=== PATIENT | female | born 1980 | race Caucasian/White ===

== ENCOUNTER → 2020-04-29 15:31 | Outpatient (BNVA) | payer MEDICARE, MEDICAID, SELFPAY | PROVIDERS: Family Provider Internal Medicine; PCP Internal Medicine; Visit Provider Internal Medicine | DX: E11.9 Type 2 diabetes mellitus without complications (principal); I10 Essential (primary) hypertension; Q65.89 Other specified congenital deformities of hip | CPT/HCPCS: 80053; 82607; 82746; 82747; 83036; 84443; 85025 ==

== ENCOUNTER 2020-07-17 08:26 | Inpatient (IN) | payer MEDICARE, MEDICAID, SELFPAY ==
[2020-07-17] VITALS (16 sets, daily range): BP systolic 121–197; BP diastolic 84–139; PULSE 77–126; RESP 16–20; TEMP 35.7–37.3; O2SAT 92–94; BMI 31.2
--- NOTE | 2020-07-17 08:47 | XR_ITS ---
WS: [id number] Portable AP upright chest, 07/17/2020 Clinical Data: weight loss Comparison: Portable chest, 11/21/2018 Findings: No nodules, masses or effusions are seen. The heart is normal. The pulmonary vascularity is not increased. No pneumonia or pneumothorax is seen. XR/XR chest 1V portable [id number] Impression: Negative chest.
--- NOTE | 2020-07-17 08:52 | ED_ITS ---
Documented by User: LYNN Herman 07/17/20 10:23 HPI - Abdominal Pain General: Chief Complaint: Abdominal Pain Stated Complaint: throwing up/weight loss/back pain Time Seen by Provider: 07/17/20 08:46 History of Present Illness: HPI narrative: Patient arrives with complaints of abdominal pain for at least 3 weeks. Cannot take her medication she is normally prescribed at home. Was in her ER yesterday coming by ambulance and was not able to stay in waiting room due to the pain and nausea and vomiting. Patient said she has been vomiting on and off for the last 3 weeks. Has a history of chronic pancreatitis from a bad drug reaction in past. MD elicited complaint: abdominal pain Pertinent past history: other (Chronic pancreatitis) Onset (ago): week(s) Pain Consistency: constant Location: Diffuse Severity: similar to previous episodes Quality: aching Radiation: RUQ and R flank Migration to: R flank Exacerbating factors: eating Relieving factors: nothing Associated Symptoms: Reports nausea and vomiting; Denies chills and fever(s) Review of Systems Const: Denies: fever(s), chills or body aches Eyes: Denies: change in vision or blurry vision ENMT: Denies: throat pain or nasal congestion Card: Denies: chest pain or dyspnea on exertion Resp: Denies: dyspnea, productive cough or non-productive cough GI: Reports: abdominal pain, nausea and vomiting : Reports: flank pain Musc: Denies: extremity pain Skin/Breast: Denies: rash Neuro: Denies: headache(s) Psych: Denies: anxiety or depression Benjy/Lymph: Denies: easy bruising PFS ED PFSH: Medical History (Updated 06/26/20 @ 16:01 by Yony Otero MD) Chronic pain of lower extremity, bilateral 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 Diabetes Essential (primary) hypertension Surgical History History of bilateral knee replacement Family History Grandmother Cancer Lung disease Stroke Mother Lung disease Other A-fib CHF (congestive heart failure) Social History Smoking and tobacco status: never smoked Alcohol intake: never Household members: spouse Housing: House Marital status: Current occupational status: disabled History of recent travel: No Physical Exam Const: COMMON NORMALS: no acute distress, average body habitus and patient oriented x3 HENMT: COMMON NORMALS: normocephalic HEAD & SCALP: normal to inspection and normocephalic FACE & SINUS: normal facial exam Eye: COMMON NORMALS: conjunctivae normal GENERAL EYE: appearance normal, both eyes and all related structures CONJUNCTIVA: Yes conjunctivae normal Neck/C-Spine: COMMON NORMALS: no JVD Chest: COMMONS NORMALS: normal inspection of the chest Resp: COMMON NORMALS: normal respiratory effort and clear to auscultation bilaterally AUSCULTATION: clear to auscultation bilaterally Cardio: COMMON NORMALS: no JVD, regular rate and regular rhythm RATE: regular rate RHYTHM: regular rhythm GI: COMMON NORMALS: Normal to inspection, nondistended, normoactive bowel sounds present PALPATION: Yes Tenderness to palpation present (GI) (And right flank) Details: RUQ Extremity: COMMON NORMALS: normal to inspection and full ROM Neuro: COMMON NORMALS: patient oriented x3 Course Vital Signs: Vital signs: Vital Signs Temperature 96.2 F L 07/17/20 08:44 Pulse Rate 116 H 07/17/20 10:28 Respiratory Rate 18 07/17/20 10:28 Blood Pressure 171/131 07/17/20 10:28 Pulse Oximetry 94 07/17/20 10:28 MDM - Abdominal Pain MDM Narrative: Medical decision making narrative: Report given to Dr. Felipe Lab Data: Labs: Lab Results 07/17/20 07/17/20 07/17/20 Range/Units 09:14 09:14 09:36 WBC 21.1 H (4.0-10.0) 10^3/ uL RBC 6.02 H (4.1-5.3) 10^6/u L Hgb 17.1 H (11.5-15.3) g/dL Hct 53.6 H (37.0-47.0) % MCV 89.0 (81-99) fL MCH 28.4 (28.0-34.0) pg MCHC 31.9 (30.0-36.0) g/dL RDW 14.4 (12.1-15.1) % Plt Count 590 H (130-400) 10^3/c mm MPV 10.3 (7.4-10.4) fL Neut % (Auto) 76.3 % Lymph % (Auto) 16.5 % [place] % (Auto) 6.0 % Eos % (Auto) 0.1 % Baso % (Auto) 0.4 % Neut # (Auto) 16.09 H (1.8-7.7) 10^3/u L Lymph # (Auto) 3.5 (0.8-4.8) 10^3/u L [place] # (Auto) 1.3 H (0.2-0.9) 10^3/u L Eos # (Auto) 0.0 (0.0-0.8) 10^3/u L Baso # (Auto) 0.1 (0.0-0.1) 10^3/u L Nucleated RBC % (a uto) 0 % Nucleated RBCs # 0.0 /100WBC Sodium 138 (136-145) mmol/L Potassium 3.9 (3.5-5.1) mmol/L Chloride 98 (98-107) mmol/L Carbon Dioxide 21 L (22-29) mmol/L Anion Gap 22.9 H (5-19) BUN 11 (6-20) mg/dL Creatinine 0.8 (0.5-0.9) mg/dL GFR Calculation 79.4 L (90-130) mL/min Glucose 181 H (65-115) mg/dL Calculated Osmolal ity 290 (285-295) mOsm/k g Calcium 10.7 H (8.5-10.5) mg/dL Total Bilirubin 0.6 (0.15-1.2) mg/dL AST 78 H (0-32) U/L ALT 21 (0-33) U/L Alkaline Phosphata se 111 H (35-105) IU/L Total Protein 8.7 (6.6-8.7) g/dL Albumin 4.0 (3.5-5.2) g/dL Globulin 4.7 H (1.3-4.6) g/dL Lipase 129 H (13-60) U/L HCG, Qual Negative (Negative) Discharge Plan Discharge Prescriptions: No Action (DME) One touch ultra blue test strips See Rx Instructions .Route .MEDSUPPLY Qty: 1 RF: 3 Briviact 25 mg tablet 25 mg PO DAILY RF: 0 glimepiride 4 mg tablet 4 mg PO BID Qty: 60 RF: 8 Invokana 300 mg tablet 300 mg PO QAM Qty: 90 RF: 3 morphine 30 mg tablet extended release 30 mg PO Q12H 30 Days Qty: 60 RF: 0 (DME) lancets [OneTouch Delica Lancets] 33 gauge misc See Rx Instructions .ROUTE .MEDSUPPLY Qty: 100 RF: 6 furosemide 20 mg tablet 40 mg PO BID Qty: 120 RF: 3 carvedilol 12.5 mg tablet 12.5 mg PO BID Qty: 180 RF: 0 tizanidine 4 mg tablet 8 mg PO TID PRN (Reason: muscle spasticity) 30 Days Qty: 180 RF: 3 ondansetron HCl 4 mg tablet 4 mg PO Q8H PRN (Reason: nausea and vomiting) Qty: 20 RF: 0 metformin 500 mg tablet 1,000 mg PO DAILY RF: 0 potassium chloride 10 mEq capsule, extended release 10 meq PO DAILY RF: 0 pantoprazole 40 mg tablet,delayed release (DR/EC) 40 mg PO DAILY RF: 0 zolpidem 5 mg tablet 5 mg PO BEDTIME RF: 0 hydrochlorothiazide 12.5 mg tablet 12.5 mg PO DAILY RF: 0 Coding Level of Care Code ED Lyric Writer for Chg Fwd Exam Comprehensive Documented by User: Janae Felipe MD 07/17/20 10:34 HPI - Abdominal Pain General: Chief Complaint: Abdominal Pain Stated Complaint: throwing up/weight loss/back pain Time Seen by Provider: 07/17/20 08:46 PFSH ED PFSH: Medical History (Updated 06/26/20 @ 16:01 by Yony Otero MD) Chronic pain of lower extremity, bilateral 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 She is here with pancreatitis. She has a history of chronic pancreatitis and is having an acute flare. She has had symptoms for about 3 weeks. Very severe for the last week. She has not able to eat and says she is lost 15 pounds in the past week. She has not a drinker. She does not have a gallbladder. On CT today she has a new 11 mm nodule in the tail of the pancreas. Differential includes necrosis versus cystic pancreatic mass. White count is 21,000. Her blood work reflects significant dehydration. She will be admitted to the hospitalist service for further management. Vital Signs: Vital signs: Vital Signs Temperature 96.2 F L 07/17/20 08:44 Pulse Rate 116 H 07/17/20 10:28 Respiratory Rate 18 07/17/20 10:28 Blood Pressure 171/131 07/17/20 10:28 Pulse Oximetry 94 07/17/20 10:28 MDM - Abdominal Pain Lab Data: Labs: Lab Results 07/17/20 07/17/20 07/17/20 Range/Units 09:14 09:14 09:36 WBC 21.1 H (4.0-10.0) 10^3/ uL RBC 6.02 H (4.1-5.3) 10^6/u L Hgb 17.1 H (11.5-15.3) g/dL Hct 53.6 H (37.0-47.0) % MCV 89.0 (81-99) fL MCH 28.4 (28.0-34.0) pg MCHC 31.9 (30.0-36.0) g/dL RDW 14.4 (12.1-15.1) % Plt Count 590 H (130-400) 10^3/c mm MPV 10.3 (7.4-10.4) fL Neut % (Auto) 76.3 % Lymph % (Auto) 16.5 % [place] % (Auto) 6.0 % Eos % (Auto) 0.1 % Baso % (Auto) 0.4 % Neut # (Auto) 16.09 H (1.8-7.7) 10^3/u L Lymph # (Auto) 3.5 (0.8-4.8) 10^3/u L [place] # (Auto) 1.3 H (0.2-0.9) 10^3/u L Eos # (Auto) 0.0 (0.0-0.8) 10^3/u L Baso # (Auto) 0.1 (0.0-0.1) 10^3/u L Nucleated RBC % (a uto) 0 % Nucleated RBCs # 0.0 /100WBC Sodium 138 (136-145) mmol/L Potassium 3.9 (3.5-5.1) mmol/L Chloride 98 (98-107) mmol/L Carbon Dioxide 21 L (22-29) mmol/L Anion Gap 22.9 H (5-19) BUN 11 (6-20) mg/dL Creatinine 0.8 (0.5-0.9) mg/dL GFR Calculation 79.4 L (90-130) mL/min Glucose 181 H (65-115) mg/dL Calculated Osmolal ity 290 (285-295) mOsm/k g Calcium 10.7 H (8.5-10.5) mg/dL Total Bilirubin 0.6 (0.15-1.2) mg/dL AST 78 H (0-32) U/L ALT 21 (0-33) U/L Alkaline Phosphata se 111 H (35-105) IU/L Total Protein 8.7 (6.6-8.7) g/dL Albumin 4.0 (3.5-5.2) g/dL Globulin 4.7 H (1.3-4.6) g/dL Lipase 129 H (13-60) U/L HCG, Qual Negative (Negative) Discharge Plan Discharge Prescriptions: No Action (DME) One touch ultra blue test strips See Rx Instructions .Route .MEDSUPPLY Qty: 1 RF: 3 Briviact 25 mg tablet 25 mg PO DAILY RF: 0 glimepiride 4 mg tablet 4 mg PO BID Qty: 60 RF: 8 Invokana 300 mg tablet 300 mg PO QAM Qty: 90 RF: 3 morphine 30 mg tablet extended release 30 mg PO Q12H 30 Days Qty: 60 RF: 0 (DME) lancets [OneTouch Delica Lancets] 33 gauge misc See Rx Instructions .ROUTE .MEDSUPPLY Qty: 100 RF: 6 furosemide 20 mg tablet 40 mg PO BID Qty: 120 RF: 3 carvedilol 12.5 mg tablet 12.5 mg PO BID Qty: 180 RF: 0 tizanidine 4 mg tablet 8 mg PO TID PRN (Reason: muscle spasticity) 30 Days Qty: 180 RF: 3 ondansetron HCl 4 mg tablet 4 mg PO Q8H PRN (Reason: nausea and vomiting) Qty: 20 RF: 0 metformin 500 mg tablet 1,000 mg PO DAILY RF: 0 potassium chloride 10 mEq capsule, extended release 10 meq PO DAILY RF: 0 pantoprazole 40 mg tablet,delayed release (DR/EC) 40 mg PO DAILY RF: 0 zolpidem 5 mg tablet 5 mg PO BEDTIME RF: 0 hydrochlorothiazide 12.5 mg tablet 12.5 mg PO DAILY RF: 0 Coding Level of Care Code ED Lyric Writer for Chg Fwd Exam Comprehensive
--- NOTE | 2020-07-17 08:54 | CT_ITS ---
WS: [id number] CT ABDOMEN AND PELVIS WITH CONTRAST HISTORY: Abdominal pain with weight loss and back pain. TECHNIQUE: Imaging performed of the abdomen and pelvis with IV contrast. Single phase imaging of the abdomen. Coronal and sagittal reformats are submitted. All CT scans at [facility] use at least one of these dose optimization techniques: automated exposure control; mA and/or kV adjustment per patient size (includes targeted exams where dose is matched to clinical indication); or iterativ e reconstruction. IV CONTRAST: Omnipaque 300; 95 mL IV. Oral contrast: No DLP: 790.43 mGy.cm COMPARISON: 06/22/2018 Lower thorax: Mild dependent changes at the lung bases. Mild enlargement of the LEFT heart chambers. Small hiatal hernia. Liver/biliary system: Moderate hepatic steatosis. Mild enlargement of the liver also. Gallbladder: Status post cholecystectomy. Pancreas: Pancreas is enlarged and edematous. There is mild perinephric stranding around the entire p ancreas. Pancreatic tail is a low-attenuation 11 mm nodule which was not seen on prior studies. No he morrhagic transformation. The entire pancreas does enhance. No adjacent pseudocyst. Spleen: Normal. Adrenal glands: Normal RIGHT adrenal gland. 1.9 cm low-attenuation mass associated with the LEFT adre nal gland thin septations. Very slightly increased in size over several prior years. Right kidney: Normal. Left kidney: Normal. Aorta: Mild atherosclerosis with a circumaortic LEFT renal vein. Lymphadenopathy: None. Free fluid: None. GI tract: Normal appendix. No pericolonic inflammation or obstruction. Abdominal wall: Unremarkable abdominal wall. No hernia. Pelvis: Normal size anteverted uterus. No free fluid or adenopathy. Negative urinary bladder. Bones: Unremarkable. CT/CT abdomen pelvis w con* [id number] IMPRESSION: 1. Mild to moderate acute pancreatitis without pseudocyst. 2. New low-attenuation 11 mm nodule in the pancreatic tail. Differential inclu veronica area of necrosis from the pancreatitis, pseudocyst or pancreatic cystic les ion. Recommend [address] follow-up after acute episode of pancreatitis resolve s. 3. Prior cholecystectomy. 4. Mild hepatic steatosis and hepatomegaly. 5. LEFT adrenal nodule has slightly increased in size since 2017 now measuring 19 mm. Indeterminate for adenoma. This also can be reevaluated on the follow-u p CT in 3 months.
[2020-07-17] MEDS: ondansetron 2 mg/ML SDV 2 mL 4 MG IVP ×2 (09:18→10:12)
[2020-07-17] MEDS: morphine 4 mg/mL SDV 1 mL IVP ×2 (09:21→10:13)
[2020-07-17] MEDS: sodium chloride 0.9% 1,000 ML 999 ML IV (09:25)
[2020-07-17 09:38] LABS: HCG, Serum Qual Negative (Negative)
[2020-07-17 09:43] LABS: Alanine Aminotransferase 21 U/L (0-33); Alkaline Phosphatase 111 IU/L (35-105); Blood Urea Nitrogen 11 mg/dL (6-20); Calcium 10.7 mg/dL (8.5-10.5); Carbon Dioxide 21 mmol/L (22-29); Chloride 98 mmol/L (98-107); Globulin 4.7 g/dL (1.3-4.6); Glomerular Filtration Rate 79.4 mL/min (90-130); Glucose 181 mg/dL (65-115); Lipase 129 U/L (13-60); Osmolality Calculated 290 mOsm/kg (285-295); Sodium 138 mmol/L (136-145); Total Bilirubin 0.6 mg/dL (0.15-1.2); Total Protein 8.7 g/dL (6.6-8.7)
[2020-07-17 09:43] LABS: Basophils # 0.1 10^3/uL (0.0-0.1); Basophils % 0.4 %; Eosinophils % 0.1 %; Hematocrit 53.6 % (37.0-47.0); Hemoglobin 17.1 g/dL (11.5-15.3); Lymphocytes # 3.5 10^3/uL (0.8-4.8); Lymphocytes % 16.5 %; Mean Corpuscular HGB Conc 31.9 g/dL (30.0-36.0); Mean Corpuscular Hemoglobin 28.4 pg (28.0-34.0); Mean Platelet Volume 10.3 fL (7.4-10.4); Monocytes # 1.3 10^3/uL (0.2-0.9); Neutrophils # 16.09 10^3/uL (1.8-7.7); Neutrophils % 76.3 %; Nucleated Red Blood Cells % 0 %; Platelet Count 590 10^3/cmm (130-400); Red Blood Count 6.02 10^6/uL (4.1-5.3); Red Cell Distribution Width 14.4 % (12.1-15.1); White Blood Count 21.1 10^3/uL (4.0-10.0)
--- NOTE | 2020-07-17 09:46 | PC.NURSE ---
pt to CT by stretcher with tech
[2020-07-17 09:50] LABS: Anion Gap 22.9 (5-19); Aspartate Amino Transferase 78 U/L (0-32); Potassium 3.9 mmol/L (3.5-5.1)
[2020-07-17] MEDS: iohexol 300 mg/mL 100 mL Btl IV (09:56)
[2020-07-17 10:55] LABS: Blood Urine 2+ (Negative); Glucose Urine UA 4+ (Normal); Ketones Urine 1+ (Negative); Protein Urine 3+ (Negative); Specific Gravity, Urine 1.005 (1.005-1.030); Urine Appearance SL Hazy (CLEAR); Urine Color Yellow (Yellow); pH Urine 6.5 (5-7)
[2020-07-17 10:56] LABS: Add Urine Microscopic? YES; Bilirubin Urine Neg (Negative); Leukocyte Esterase Urine Negative (Negative); Nitrate Urine Negative (Negative); Urobilinogen Urine Neg (Negative)
[2020-07-17 10:57] LABS: Add Urine Culture? No; Bacteria Urine 1+ /hpf; RBC Urine 0-4 /hpf (0-2); Squamous Epithelial Cell Urine 40-55 /hpf (0-5); WBC Urine 0-4 /hpf (0-5)
[2020-07-17] MEDS: HYDROmorphone 1 mg/mL INJ 1 mL 0.5 MG IVP (11:09)
[2020-07-17] MEDS: metoprolol tartrate 1 mg/1 mL SDV 5 mL 5 MG IV (11:09)
[2020-07-17 11:34] LABS: Triglycerides 186 mg/dL (0-150)
--- NOTE | 2020-07-17 11:55 | PM.HP ---
Providers/Chief Complaint Admitting Physician: Mary Perez DO Primary Care Provider: Yony Otero MD Chief Complaint: throwing up/weight loss/back pain History of Present Illness Eleanor Ragland is a 40 year old female with a past medical history of diabetes, epilepsy, hypertension, tachycardia and history of chronic pancreatitis that presented to the emergency department for nausea vomiting and abdominal pain. She reports that she has been having worsening nausea vomiting over the past 3 weeks. States that she has been worse over the past 3 days. Reports epigastric abdominal pain. Stated that she was on Zonegran in the past and this gave her at her first episode of pancreatitis in 2014, had 2 episodes in 2014 followed by an episode in 2017. Stated that she had a feeding tube placed at that time. Patient stated that she has not been able to take any of her medications for 3 days Patient was seen and evaluated in the emergency department noted to have concern for acute pancreatitis and admitted for further evaluation and treatment. Review of Systems Const: Denies: fever(s) or chills Eyes: Denies: change in vision ENMT: Denies: nasal congestion Card: Denies: chest pain, palpitations or edema Resp: Denies: dyspnea, productive cough or hemoptysis GI: Reports: abdominal pain, nausea, vomiting and constipation; Denies: diarrhea, hematochezia or melena : Denies: dysuria or hematuria Musc: Denies: extremity pain or muscle cramps Skin/Breast: Denies: rash or new lesions Neuro: Denies: headache(s) or dizziness Psych: Denies: anxiety or depression Endo: Denies: polyuria or hot flashes Benjy/Lymph: Denies: easy bruising or easy bleeding Medications/Allergies Home Medications Medication Instructions Recorded Confirmed Last Taken Type One touch ultra blue test strips #1 ea 01/16/20 07/17/20 Unknown Rx canagliflozin 300 mg tablet 300 mg PO QAM #90 tab 01/29/20 07/17/20 07/14/20 Rx lancets 33 gauge #100 each 03/05/20 07/17/20 Unknown Rx furosemide 20 mg tablet 40 mg PO BID #120 tab 03/11/20 07/17/20 Unknown Rx brivaracetam 25 mg tablet 25 mg PO DAILY 04/01/20 07/17/20 07/14/20 History glimepiride 4 mg tablet 4 mg PO BID #60 tab 04/01/20 07/17/20 07/14/20 Rx carvedilol 12.5 mg tablet 12.5 mg PO BID #180 tab 04/14/20 07/17/20 07/14/20 Rx morphine 30 mg tablet,extended 30 mg PO Q12H 30 Days #60 tab 06/26/20 07/17/20 07/14/20 Rx release tizanidine 4 mg tablet 8 mg PO TID PRN 30 Days #180 tab 06/30/20 07/17/20 Unknown Rx ondansetron HCl 4 mg tablet 4 mg PO Q8H PRN #20 tab 07/08/20 07/17/20 Unknown Rx hydrochlorothiazide 12.5 mg PO DAILY 07/17/20 07/17/20 07/14/20 History metformin 1,000 mg PO DAILY 07/17/20 07/17/20 07/14/20 History pantoprazole 40 mg PO DAILY 07/17/20 07/17/20 07/14/20 History potassium chloride 10 meq PO DAILY 07/17/20 07/17/20 07/14/20 History zolpidem 5 mg PO BEDTIME 07/17/20 07/17/20 07/16/20 History Allergies Allergy/AdvReac Type Severity Reaction Status Date / Time aspirin Allergy Unknown Verified 07/16/20 18:10 ketorolac [From Toradol] Allergy Unknown Verified 07/16/20 18:10 tramadol [From Ultram] Allergy Unknown Verified 07/16/20 18:10 PFSH Acute PFSH: Medical History (Updated 07/17/20 @ 11:59 by Mary Perez DO) Chronic pain of lower extremity, bilateral 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 Diabetes Epilepsy Essential (primary) hypertension Primary osteoarthritis Surgical History History of bilateral knee replacement History of cholecystectomy History of D&C 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 Family History Grandmother Cancer Lung disease Stroke Mother Lung disease Other A-fib CHF (congestive heart failure) Social History Smoking and tobacco status: never smoked Alcohol intake: never Household members: spouse Housing: House Marital status: Current occupational status: disabled History of recent travel: No Vitals/I&O/Wt Last Vital Signs Temp 96.2 F L 07/17/20 08:44 Pulse 120 H 07/17/20 11:20 Resp 17 07/17/20 11:09 BP 150/100 07/17/20 11:20 Pulse Ox 92 07/17/20 11:20 Weight last 48 hrs Weight 72.575 kg Physical Exam Const: COMMON NORMALS: patient oriented x3 and alert GENERAL APPEARANCE: cooperative ORIENTATION/CONSCIOUSNESS: Yes awake, Yes oriented to person, Yes oriented to place and Yes oriented to time HENMT: COMMON NORMALS: normocephalic and atraumatic HEAD & SCALP: normocephalic and atraumatic Eye: COMMON NORMALS: Equal, round and reactive pupils present PUPIL: Yes Equal, round and reactive pupils present Neck/C-Spine: COMMON NORMALS: supple GENERAL: Yes normal visual inspection Resp: COMMON NORMALS: normal respiratory effort and clear to auscultation bilaterally EFFORT & INSPECTION: Yes able to speak in complete sentences AUSCULTATION: clear to auscultation bilaterally, no rhonchi and no wheezes Cardio: COMMON NORMALS: regular rate, regular rhythm and No murmurs present (Cardio) RATE: regular rate RHYTHM: regular rhythm GI: COMMON NORMALS: Soft to palpation INSPECTION: No abdominal distension AUSCULTATION: Yes normoactive bowel sounds PALPATION: Yes Soft to palpation and Yes Tenderness to palpation present (GI) Details: RUQ Extremity: COMMON NORMALS: no calf tenderness NARRATIVE EXTREMITY EXAM: Chronic postsurgical changes to the right foot Neuro: COMMON NORMALS: patient oriented x3, CN's II-XII intact bilaterally, moves all extremities and no focal motor deficits SENSORIUM/ORIENTATION: Yes alert, Yes oriented to person, Yes oriented to place and Yes oriented to time SPEECH: speech normal Psych: COMMON NORMALS: mental status grossly normal and cooperative Skin: COMMON NORMALS: no rashes or lesions noted GENERAL SKIN EXAM: no rashes or lesions noted Data : 07/17/20 09:36 07/17/20 09:14 CT Abd/Pel: I personally reviewed and interpreted this imaging study as follows: Radiologist's impression: IMPRESSION: 1. Mild to moderate acute pancreatitis without pseudocyst. 2. New low-attenuation 11 mm nodule in the pancreatic tail. Differential includes area of necrosis from the pancreatitis, pseudocyst or pancreatic cystic lesion. Recommend [address] follow-up after acute episode of pancreatitis resolves. 3. Prior cholecystectomy. 4. Mild hepatic steatosis and hepatomegaly. 5. LEFT adrenal nodule has slightly increased in size since 2017 now measuring 19 mm. Indeterminate for adenoma. This also can be reevaluated on the follow-up CT in 3 months. CXR: I personally reviewed and interpreted this imaging study as follows: Radiologist's impression: Findings: No nodules, masses or effusions are seen. The heart is normal. The pulmonary vascularity is not increased. No pneumonia or pneumothorax is seen. XR/XR chest 1V portable [id number] Impression: Negative chest. A&P Assessment and plan (1) Pancreatitis, acute: With a history of chronic pancreatitis with episodes in [address] scan of the abdomen pelvis as noted above, discussed with patient concern for pancreatic lesion and need for close outpatient follow-up. N.p.o. bowel rest IV fluids If unable to take p.o. with no improvement of symptoms over the next [address] J-tube for tube feeds Hold home Invokana, this could be contributing to her pancreatitis We will check triglyceride level Patient denies alcohol use Status: Acute (2) Epilepsy: Seizure precautions On Brivaracetam 25mg daily, reports she has not taken her medication in 3 days Discussed with pharmacy and will convert to IV Status: Acute (3) Essential (primary) hypertension: As needed labetalol Status: Acute (4) Diabetes: Hemoglobin A1c Hold home Invokana as this can cause pancreatitis Placed on sliding scale insulin as needed Status: Acute (5) Chronic pain of lower extremity, bilateral: IV pain medication PRN Status: Acute Additional A&P Information Dehydration: Continue with IV fluids as above DVT ppx: Lovenox Diet: NPO COde status: Full code Attestations Medical Necessity Statement*: Patient requires hospitalization due to pancreatitis, expected stay greater than 2 midnights. Coding Level of Care Code Acute Preventive Medicine Officer for [facility] Fwd Diagnoses Pancreatitis, acute K85.90 Epilepsy G40.909 Essential (primary) hypertension I10 Diabetes E11.9 Chronic pain of lower extremity, bilateral M79.604; M79.605; G89.16
[2020-07-17 12:16] LABS: Estmated Average Glucose 126
[2020-07-17] MEDS: enoxaparin 40 mg/0.4 mL Syringe SUBCUT (12:43)
[2020-07-17] MEDS: promethazine 25 mg/mL SDV 1 mL 12.5 MG IM ×2 (12:43→17:52)
[2020-07-17] MEDS: lactated ringers 1,000 ML 100 ML IV ×2 (12:44→22:45)
[2020-07-17] MEDS: labetalol 5 mg/mL SDV 20mL 10 MG IVP (12:44)
--- NOTE | 2020-07-17 12:44 | PC.NURSE ---
Increased blood pressure 166/103, PRN labetalol given per doctors orders, see MAR for further details.
[2020-07-17] MEDS: morphine 4 mg/mL SDV 1 mL 2 MG IVP ×2 (12:47→16:36)
[2020-07-17 13:05] LABS: Thyroid Stimulating Hormone 0.21 uIU/mL (0.27-4.20)
--- NOTE | 2020-07-17 13:12 | PC.NURSE ---
Reassessed blood pressure 121/84
--- NOTE | 2020-07-17 13:15 | PC.NURSE ---
Addendum entered by Sonia Jacobson RN 07/17/20 16:04: discussed with Dr. Perez orders given were per Dr. Perez Original Note: Discussed patients seizure like activity with mouth movement although remains to answer questions appropriately and alert and oriented, new order received for a one time dose of ativan 0.5 NOW and use 1mg PRN for further seizures. See MAR for further details.
[2020-07-17] MEDS: LORazepam 2 mg/mL INJ 1 mL 0.5 MG IVP (13:22)
--- NOTE | 2020-07-17 16:04 | PC.NURSE ---
Patient remains nausea despite medications administered, requesting ice chips and increase in pain medication change to dilaudid, Dr. Perez made aware new orders received for swabs and NPO status only and remain same pain medication.
[2020-07-17 17:32] LABS: Glucose Point of Care 123 mg/dL (70-110)
[2020-07-17] MEDS: HYDROmorphone 1 mg/mL INJ 1 mL 2 MG IVP (17:52)
--- NOTE | 2020-07-17 17:58 | PC.NURSE ---
Dr. Perez notified of patient in tears stating pain 10/10 to abdomen, new orders received for ONE time dose of dilaudid 2mg IVP. See MAR for further details.
[2020-07-17 21:32] LABS: Glucose Point of Care 91 mg/dL (70-110)
[2020-07-18] VITALS (13 sets, daily range): BP systolic 134–161; BP diastolic 82–110; PULSE 107–128; RESP 16–24; TEMP 36.7–37.6; O2SAT 91–95
[2020-07-18] MEDS: morphine 4 mg/mL SDV 1 mL 2 MG IVP ×2 (00:51→17:19)
[2020-07-18] MEDS: ondansetron 2 mg/ML SDV 2 mL 4 MG IVP ×2 (00:52→17:20)
[2020-07-18] MEDS: promethazine 25 mg/mL SDV 1 mL 12.5 MG IM ×4 (01:41→21:47)
[2020-07-18] MEDS: LORazepam 2 mg/mL INJ 1 mL 1 MG IVP ×3 (03:15→17:28)
[2020-07-18 05:27] LABS: Basophils # 0.1 10^3/uL (0.0-0.1); Basophils % 0.7 %; Eosinophils % 0.1 %; Hematocrit 50.1 % (37.0-47.0); Hemoglobin 15.5 g/dL (11.5-15.3); Lymphocytes # 3.9 10^3/uL (0.8-4.8); Lymphocytes % 24.2 %; Mean Corpuscular HGB Conc 30.9 g/dL (30.0-36.0); Mean Corpuscular Hemoglobin 28.5 pg (28.0-34.0); Mean Corpuscular Volume 92.3 fL (81-99); Mean Platelet Volume 10.9 fL (7.4-10.4); Monocytes # 1.5 10^3/uL (0.2-0.9); Monocytes % 9.1 %; Neutrophils % 65.3 %; Nucleated Red Blood Cells % 0 %; Platelet Count 446 10^3/cmm (130-400); Red Blood Count 5.43 10^6/uL (4.1-5.3); Red Cell Distribution Width 14.7 % (12.1-15.1); White Blood Count 16.2 10^3/uL (4.0-10.0)
[2020-07-18 06:41] LABS: Alanine Aminotransferase 35 U/L (0-33); Albumin Level 3.4 g/dL (3.5-5.2); Alkaline Phosphatase 106 IU/L (35-105); Aspartate Amino Transferase 109 U/L (0-32); Blood Urea Nitrogen 9 mg/dL (6-20); Calcium 9.8 mg/dL (8.5-10.5); Carbon Dioxide 26 mmol/L (22-29); Chloride 103 mmol/L (98-107); Globulin 3.6 g/dL (1.3-4.6); Glomerular Filtration Rate 110.7 mL/min (90-130); Glucose 146 mg/dL (65-115); Osmolality Calculated 297 mOsm/kg (285-295); Sodium 143 mmol/L (136-145); Total Bilirubin 0.9 mg/dL (0.15-1.2)
[2020-07-18 06:51] LABS: Anion Gap 17.5 (5-19); Potassium 3.5 mmol/L (3.5-5.1)
--- NOTE | 2020-07-18 07:08 | PC.NURSE ---
Received report from Jairon Fairbanks RN. Assumed care of patient.
[2020-07-18 07:54] LABS: Lipase 114 U/L (13-60)
[2020-07-18] MEDS: HYDROmorphone 1 mg/mL INJ 1 mL 0.5 MG IVP ×3 (08:16→21:46)
[2020-07-18] MEDS: labetalol 5 mg/mL SDV 20mL 10 MG IVP (08:16)
[2020-07-18] MEDS: lactated ringers 1,000 ML 100 ML IV ×2 (08:23→17:22)
[2020-07-18 08:35] LABS: Glucose Point of Care 125 mg/dL (70-110)
--- NOTE | 2020-07-18 09:35 | XR_ITS ---
WS: [id number] PORTABLE CHEST HISTORY: ng tube placement verification COMPARISON: 07/17/2020 Satisfactory placement of the nasogastric tube. Tip is in the LEFT abdomen in the region of the stoma ch. Lungs are clear and well expanded. No pleural effusion or pneumothorax. Cardiac size: Normal. Mediastinum/Aorta: Normal mediastinum. No osseous abnormality seen. XR/XR chest 1V portable [id number] IMPRESSION: Satisfactory interval positioning of the nasogastric tube.
--- NOTE | 2020-07-18 10:18 | XR_ITS ---
WS: [id number] Portable AP upright chest, 07/18/2020, 1022 hours Clinical Data: nj tube placement, advancing from ng Comparison: Portable chest, today, 1001 hours Findings: The nasogastric tube has been advanced and the tip is close to the distal gastric antrum or in the duodenal bulb. XR/XR chest 1V portable [id number] Impression: Advancement of enteric tube into the distal gastric antrum or duodenal bulb.
--- NOTE | 2020-07-18 11:18 | PM.PN ---
Subjective Subjective: Interval history: Patient awake sitting up in bed at time of exam this morning. Reported continued abdominal pain and nausea. She states that the morphine has not been keeping her pain at bay, reported that the Phenergan has been the most helpful for her nausea. She is requesting liquids, discussed with patient that would not recommend this due to continued pain and nausea. Vitals/I&O/Wt Last Vital Signs Temp 98.5 F 07/18/20 08:00 Pulse 128 H 07/18/20 08:00 Resp 18 07/18/20 08:00 BP 161/110 07/18/20 08:00 Pulse Ox 94 07/18/20 07:47 07/17/20 07/18/20 07/18/20 22:59 06:59 14:59 Intake Total 1000 / 1000 963.333 / 963.333 Output Total 400 / 400 100 / 100 Balance 1000 / 1000 -400 / 600 863.333 / 863.333 Weight last 48 hrs Weight 82.639 kg Weight 72.575 kg Physical Exam Const: COMMON NORMALS: patient oriented x3 and alert GENERAL APPEARANCE: cooperative ORIENTATION/CONSCIOUSNESS: Yes awake, Yes oriented to person, Yes oriented to place and Yes oriented to time HENMT: COMMON NORMALS: normocephalic and atraumatic HEAD & SCALP: normocephalic and atraumatic Eye: COMMON NORMALS: Equal, round and reactive pupils present PUPIL: Yes Equal, round and reactive pupils present Neck/C-Spine: COMMON NORMALS: supple GENERAL: Yes normal visual inspection Resp: COMMON NORMALS: normal respiratory effort and clear to auscultation bilaterally EFFORT & INSPECTION: Yes able to speak in complete sentences AUSCULTATION: clear to auscultation bilaterally, no rhonchi and no wheezes Cardio: COMMON NORMALS: regular rate, regular rhythm and No murmurs present (Cardio) RATE: regular rate RHYTHM: regular rhythm GI: COMMON NORMALS: Soft to palpation INSPECTION: No abdominal distension AUSCULTATION: Yes normoactive bowel sounds PALPATION: Yes Soft to palpation and Yes Tenderness to palpation present (GI) Extremity: COMMON NORMALS: no calf tenderness NARRATIVE EXTREMITY EXAM: Chronic postsurgical changes to the right foot Neuro: COMMON NORMALS: patient oriented x3, CN's II-XII intact bilaterally, moves all extremities and no focal motor deficits SENSORIUM/ORIENTATION: Yes alert, Yes oriented to person, Yes oriented to place and Yes oriented to time SPEECH: speech normal Psych: COMMON NORMALS: mental status grossly normal and cooperative Skin: COMMON NORMALS: no rashes or lesions noted GENERAL SKIN EXAM: no rashes or lesions noted Data : 07/18/20 04:51 07/18/20 06:08 A&P Assessment and plan (1) Pancreatitis, acute: With a history of chronic pancreatitis with episodes in [address] scan of the abdomen pelvis on admission shows mild stranding around the entire pancreas with pancreatic tail showing a low-attenuation 11 mm nodule, this was discussed with patient and recommended to have continued monitoring of this. NPO and IVF continued NJ tube ordered for today Hold home Invokana, this could be contributing to her pancreatitis Status: Acute (2) Epilepsy: Seizure precautions On Brivaracetam 25mg daily, reports she has not taken her medication in 3 days Discussed with pharmacy and will convert to IV Keppra while inpatient Status: Acute (3) Essential (primary) hypertension: As needed labetalol Status: Acute (4) Diabetes: Hemoglobin A1c Hold home Invokana as this can cause pancreatitis Placed on sliding scale insulin as needed Status: Acute (5) Chronic pain of lower extremity, bilateral: IV pain medication PRN Status: Acute Additional A&P Information Dehydration: Continue with IV fluids as above DVT ppx: Lovenox Diet: NPO COde status: Full code Attestations Medical Necessity Statement*: Patient requires further hospitalization due to concern for acute pancreatitis Coding Level of Care Code Acute Tubular Riveter for [facility] Diagnoses Pancreatitis, acute K85.90 Epilepsy G40.909 Essential (primary) hypertension I10 Diabetes E11.9 Chronic pain of lower extremity, bilateral M79.604; M79.605; G89.29
[2020-07-18 11:50] LABS: Glucose Point of Care 127 mg/dL (70-110)
--- NOTE | 2020-07-18 12:28 | XR_ITS ---
WS: [id number] PORTABLE CHEST HISTORY: nj advancement COMPARISON: 07/18/2020 Tip of the nasogastric tube is now within the proximal jejunum. Large amount of overlying artifact th roughout the visualized chest and abdomen. Quality of this examination is limited for the remaining s oft tissue and osseous structures. XR/XR chest 1V portable [id number] IMPRESSION: Nasogastric tube terminates in the proximal jejunum.
[2020-07-18] MEDS: enoxaparin 40 mg/0.4 mL Syringe SUBCUT (12:35)
[2020-07-18 16:56] LABS: Glucose Point of Care 97 mg/dL (70-110)
--- NOTE | 2020-07-18 17:40 | PC.NURSE ---
in to see patient, found with nj tube in emesis basin pulled out, Dr. Perez notified.
--- NOTE | 2020-07-18 17:43 | PC.NURSE ---
Dr. Perez gave orders for this nurse to give patient a rest and then replace nj tube. PRN ativan given for anxiety, see MAR for further details.
--- NOTE | 2020-07-18 18:08 | PC.NURSE ---
patient has not been compliant with leaving hat in toilet but has voided several times today in toilet without difficulty.
[2020-07-18 21:19] LABS: Glucose Point of Care 105 mg/dL (70-110)
[2020-07-19] VITALS (14 sets, daily range): BP systolic 125–152; BP diastolic 66–94; PULSE 66–116; RESP 16–24; TEMP 37–37.6; O2SAT 93–97
[2020-07-19] MEDS: LORazepam 2 mg/mL INJ 1 mL 1 MG IVP ×4 (00:43→19:20)
[2020-07-19] MEDS: morphine 4 mg/mL SDV 1 mL 2 MG IVP ×3 (00:44→13:52)
[2020-07-19] MEDS: HYDROmorphone 1 mg/mL INJ 1 mL 0.5 MG IVP ×4 (03:59→22:17)
[2020-07-19] MEDS: promethazine 25 mg/mL SDV 1 mL 12.5 MG IM ×3 (03:59→17:17)
[2020-07-19] MEDS: lactated ringers 1,000 ML 100 ML IV ×2 (04:03→14:08)
[2020-07-19 06:21] LABS: Glucose Point of Care 106 mg/dL (70-110)
[2020-07-19 06:23] LABS: Basophils # 0.1 10^3/uL (0.0-0.1); Basophils % 0.9 %; Eosinophils # 0.1 10^3/uL (0.0-0.8); Eosinophils % 0.8 %; Hemoglobin 13.4 g/dL (11.5-15.3); Lymphocytes # 4.2 10^3/uL (0.8-4.8); Lymphocytes % 34.7 %; Mean Corpuscular HGB Conc 30.5 g/dL (30.0-36.0); Mean Corpuscular Hemoglobin 28.5 pg (28.0-34.0); Mean Corpuscular Volume 93.6 fL (81-99); Mean Platelet Volume 10.4 fL (7.4-10.4); Monocytes # 1.3 10^3/uL (0.2-0.9); Monocytes % 10.4 %; Neutrophils # 6.35 10^3/uL (1.8-7.7); Neutrophils % 52.9 %; Nucleated Red Blood Cells % 0 %; Platelet Count 360 10^3/cmm (130-400); Red Cell Distribution Width 14.7 % (12.1-15.1)
[2020-07-19 06:58] LABS: Alanine Aminotransferase 31 U/L (0-33); Alkaline Phosphatase 93 IU/L (35-105); Blood Urea Nitrogen 8 mg/dL (6-20); Calcium 8.9 mg/dL (8.5-10.5); Carbon Dioxide 29 mmol/L (22-29); Chloride 103 mmol/L (98-107); Globulin 2.9 g/dL (1.3-4.6); Glomerular Filtration Rate 136.6 mL/min (90-130); Glucose 111 mg/dL (65-115); Osmolality Calculated 291 mOsm/kg (285-295); Sodium 141 mmol/L (136-145); Total Protein 5.9 g/dL (6.6-8.7)
[2020-07-19 07:13] LABS: Anion Gap 12.4 (5-19); Potassium 3.4 mmol/L (3.5-5.1)
[2020-07-19 07:14] LABS: Aspartate Amino Transferase 69 U/L (0-32)
--- NOTE | 2020-07-19 08:42 | P.PN_ITS ---
Subjective Subjective: Interval history: Still c/o abdominal pain and poor po intake, tries few sips of water but ended up vomiting. NJ was removed by patient. Leukocytosis trending down. Medications: Reviewed: Yes Vitals/I&O/Wt Last Vital Signs Temp 98.8 F 07/19/20 07:50 Pulse 66 07/19/20 07:50 Resp 18 07/19/20 07:50 BP 125/66 07/19/20 07:50 Pulse Ox 96 07/19/20 07:50 07/18/20 07/19/20 07/19/20 22:59 06:59 14:59 Intake Total 898.333 / 0500.554 2633 / 2966.666 Balance 898.333 / 1264.376 4983 / 2516.666 Weight last 48 hrs Weight 85.049 kg Weight 82.639 kg Weight 72.575 kg Physical Exam Narrative: EXAM NARRATIVE: GEN: Awake, alert and oriented, no acute distress , asleep when first seen, wake sup easily to calling name CVS: S1S2 N RS: CTA B/L Abd: Soft, nt/nd , bs+ KNOWLEDGE ARCHITECT: no focal neuro deficits Data : 07/19/20 06:10 07/19/20 06:10 A&P Assessment and plan (1) Pancreatitis, acute: With a history of chronic pancreatitis with episodes in [address] scan of the abdomen pelvis on admission shows mild stranding around the entire pancreas with pancreatic tail showing a low-attenuation 11 mm nodule, this was discussed with patient and recommended to have continued monitoring of this. Continue IVF NJ was inserted however removed subsequently by patient Start sips of water, ice chips, if tolerates will advance diet to clear liquid Hold home Invokana, this could be contributing to her pancreatitis Status: Acute (2) Epilepsy: Seizure precautions On Brivaracetam 25mg daily, reports she has not taken her medication in 3 days Discussed with pharmacy and will convert to IV Keppra while inpatient Status: Acute (3) Essential (primary) hypertension: As needed labetalol Status: Acute (4) Diabetes: Hemoglobin A1c Hold home Invokana as this can cause pancreatitis Placed on sliding scale insulin as needed Status: Acute (5) Chronic pain of lower extremity, bilateral: IV pain medication PRN Status: Acute Additional A&P Information Dehydration: Continue with IV fluids as above DVT ppx: Lovenox Diet: NPO COde status: Full code Attestations Medical Necessity Statement*: Acute pancreatitis, start po water and ice chips today, if tolerated will advance to clear liquid Coding Level of Care Code Acute Multiple Launch [employer]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
[2020-07-19 10:51] LABS: Glucose Point of Care 100 mg/dL (70-110)
[2020-07-19] MEDS: enoxaparin 40 mg/0.4 mL Syringe SUBCUT (12:19)
[2020-07-19] MEDS: ondansetron 2 mg/ML SDV 2 mL 4 MG IVP (14:07)
[2020-07-19 16:55] LABS: Glucose Point of Care 92 mg/dL (70-110)
--- NOTE | 2020-07-19 19:28 | PC.NURSE ---
Pt was found by another RN, posturing with head thrown back, her right arm was shaking, she was gagging and eventually vomited a small amount. Pt was turned on her left side upon entry to room, 1mg of ativan administered and Pt was suctioned to prevent aspiration. Vitals were taken and found to be BP 142/84, HR 112, SPO2 98% on 3LNC, and RR of 24. Doctor Wagner was notified and did an assessment. Pt's was also notified of the changes and updated on the plan of care. A one-on-one sitter was assigned to the Pt for her safety.
[2020-07-19 20:52] LABS: Glucose Point of Care 97 mg/dL (70-110)
[2020-07-19 21:42] LABS: Glucose Point of Care 96 mg/dL (70-110)
--- NOTE | 2020-07-19 22:39 | PC.NURSE ---
Dr. Edward came to evaluate patient after she requested to see him. Doctor gave order for 0.5mg of dilaudid to be given an hour before it was due for 10/10 pain in her back and abdomen. 4mg of zofran was administered at this time as well for Pt's nausea.
[2020-07-20] VITALS (13 sets, daily range): BP systolic 108–162; BP diastolic 71–89; PULSE 89–104; RESP 18–20; TEMP 36.6–38.2; O2SAT 97–98
[2020-07-20] MEDS: LORazepam 2 mg/mL INJ 1 mL 1 MG IVP ×6 (00:22→21:13)
[2020-07-20] MEDS: promethazine 25 mg/mL SDV 1 mL 12.5 MG IM ×3 (00:22→18:39)
[2020-07-20] MEDS: morphine 4 mg/mL SDV 1 mL 2 MG IVP ×4 (00:23→18:38)
[2020-07-20] MEDS: lactated ringers 1,000 ML 100 ML IV ×3 (00:25→21:11)
[2020-07-20 05:55] LABS: Basophils # 0.1 10^3/uL (0.0-0.1); Basophils % 0.6 %; Eosinophils # 0.4 10^3/uL (0.0-0.8); Eosinophils % 3.8 %; Hematocrit 38.3 % (37.0-47.0); Lymphocytes # 3.4 10^3/uL (0.8-4.8); Lymphocytes % 34.1 %; Mean Corpuscular HGB Conc 31.3 g/dL (30.0-36.0); Mean Corpuscular Volume 92.5 fL (81-99); Mean Platelet Volume 11.2 fL (7.4-10.4); Neutrophils # 5.04 10^3/uL (1.8-7.7); Neutrophils % 51.4 %; Nucleated Red Blood Cells % 0 %; Platelet Count 291 10^3/cmm (130-400); Red Blood Count 4.14 10^6/uL (4.1-5.3); Red Cell Distribution Width 14.4 % (12.1-15.1); White Blood Count 9.8 10^3/uL (4.0-10.0)
[2020-07-20 06:43] LABS: Glucose Point of Care 104 mg/dL (70-110)
[2020-07-20] MEDS: HYDROmorphone 1 mg/mL INJ 1 mL 0.5 MG IVP ×3 (06:53→21:12)
[2020-07-20] MEDS: ondansetron 2 mg/ML SDV 2 mL 4 MG IVP ×3 (06:53→21:15)
[2020-07-20 08:39] LABS: Alanine Aminotransferase 31 U/L (0-33); Albumin Level 2.8 g/dL (3.5-5.2); Alkaline Phosphatase 87 IU/L (35-105); Anion Gap 13.2 (5-19); Aspartate Amino Transferase 51 U/L (0-32); Blood Urea Nitrogen 4 mg/dL (6-20); Calcium 8.9 mg/dL (8.5-10.5); Carbon Dioxide 27 mmol/L (22-29); Chloride 105 mmol/L (98-107); Globulin 2.7 g/dL (1.3-4.6); Glomerular Filtration Rate 136.6 mL/min (90-130); Glucose 108 mg/dL (65-115); Osmolality Calculated 291 mOsm/kg (285-295); Potassium 3.2 mmol/L (3.5-5.1); Sodium 142 mmol/L (136-145); Total Bilirubin 0.7 mg/dL (0.15-1.2); Total Protein 5.5 g/dL (6.6-8.7)
--- NOTE | 2020-07-20 08:46 | P.PN_ITS ---
Subjective Subjective: Interval history: continues to c/o abdominal pain and nausea, intermittent low grade fever likely 2/2 inflammation Medications: Reviewed: Yes Vitals/I&O/Wt Last Vital Signs Temp 100.7 F H 07/20/20 04:00 Pulse 104 H 07/20/20 04:00 Resp 18 07/20/20 06:53 BP 154/85 07/20/20 04:00 Pulse Ox 97 07/20/20 04:00 07/19/20 07/20/20 07/20/20 22:59 06:59 14:59 Intake Total 0 / 1105 1000 / 2105 Output Total 200 / 400 550 / 950 Balance -200 / 705 450 / 1155 Weight last 48 hrs Weight 86.183 kg Weight 85.049 kg Physical Exam Narrative: EXAM NARRATIVE: GEN: Awake, alert and oriented, no acute distress , asleep when first seen, wake sup easily to calling name CVS: S1S2 N RS: CTA B/L Abd: Soft, nt/nd , bs+ ASSEMBLER SEMICONDUCTOR: no focal neuro deficits Data : 07/20/20 05:19 07/20/20 05:19 A&P Assessment and plan (1) Pancreatitis, acute: With a history of chronic pancreatitis with episodes in [address] scan of the abdomen pelvis on admission shows mild stranding around the entire pancreas with pancreatic tail showing a low-attenuation 11 mm nodule, this was discussed with patient and recommended to have continued monitoring of this. Continue IVF NJ was inserted however removed subsequently by patient Start sips of water, ice chips, if tolerates will advance diet to clear liquid Hold home Invokana, this could be contributing to her pancreatitis Status: Acute (2) Epilepsy: Seizure precautions On Brivaracetam 25mg daily, reports she has not taken her medication in 3 days Discussed with pharmacy and will convert to IV Keppra while inpatient Status: Acute (3) Essential (primary) hypertension: As needed labetalol Status: Acute (4) Diabetes: Hemoglobin A1c Hold home Invokana as this can cause pancreatitis Placed on sliding scale insulin as needed Status: Acute (5) Chronic pain of lower extremity, bilateral: IV pain medication PRN Status: Acute Additional A&P Information Dehydration: Continue with IV fluids as above DVT ppx: Lovenox Diet: NPO except ice chips, advance to clear as tolerated COde status: Full code Attestations Medical Necessity Statement*: poor po tolerability, signifcant pain and ab dominal discomfort Coding Level of Care Code Acute Electromechanical Technologist for Chg Fwd Diagnoses Pancreatitis, acute K85.90 Epilepsy G40.909 Essential (primary) hypertension I10 Diabetes E11.9 Chronic pain of lower extremity, bilateral M79.604; M79.605; G89.29
--- NOTE | 2020-07-20 10:24 | PC.SOCIAL ---
Pg 2 IMM Explained to pt Pg 2 IMM. No questions voiced. Provided pt a copy. Signed, dated, & timed copy for the chart.
[2020-07-20 10:36] LABS: SARS Covid-2 Antigen Negative (Negative)
[2020-07-20 11:01] LABS: Glucose Point of Care 98 mg/dL (70-110)
--- NOTE | 2020-07-20 11:33 | PC.NUTR ---
NUTR TF RECOMMENDATIONS: Glucerna with goal rate of 40 ml/hr providing 1152 kcal (79%), 58 g PRO (116%), and 773 ml fluid (53%)(%NEEDS). Suggest starting TF at 20 ml/hr and increase by 10 ml Q6H as tolerated till goal rate is met. Suggest H2O flushes of 90 ml Q4H to approach fluid needs or per physician.
[2020-07-20] MEDS: enoxaparin 40 mg/0.4 mL Syringe SUBCUT (12:26)
--- NOTE | 2020-07-20 15:20 | PC.NURSE ---
pt is tolerating apple juice well without vomiting. pt is requesting cranberry juice. advancing to clear liquid diet per diet order instructions.
--- NOTE | 2020-07-20 18:32 | PC.NURSE ---
pt is tolerating small amounts of juice. pt is still having pain and nausea.
[2020-07-20 18:36] LABS: Glucose Point of Care 104 mg/dL (70-110)
[2020-07-20 20:55] LABS: Glucose Point of Care 125 mg/dL (70-110)
[2020-07-21] VITALS (12 sets, daily range): BP systolic 126–160; BP diastolic 78–97; PULSE 90–112; RESP 14–20; TEMP 36.9–37.9; O2SAT 95–97
[2020-07-21] MEDS: morphine 4 mg/mL SDV 1 mL 2 MG IVP ×2 (00:45→05:07)
[2020-07-21] MEDS: promethazine 25 mg/mL SDV 1 mL 12.5 MG IM ×4 (00:46→21:12)
[2020-07-21] MEDS: LORazepam 2 mg/mL INJ 1 mL 1 MG IVP ×2 (01:33→05:08)
[2020-07-21] MEDS: HYDROmorphone 1 mg/mL INJ 1 mL 0.5 MG IVP ×6 (03:21→21:13)
[2020-07-21] MEDS: ondansetron 2 mg/ML SDV 2 mL 4 MG IVP ×3 (05:08→18:16)
[2020-07-21 05:47] LABS: Basophils # 0.1 10^3/uL (0.0-0.1); Basophils % 0.6 %; Eosinophils # 0.5 10^3/uL (0.0-0.8); Eosinophils % 5.9 %; Hematocrit 40.6 % (37.0-47.0); Hemoglobin 12.3 g/dL (11.5-15.3); Lymphocytes # 2.8 10^3/uL (0.8-4.8); Lymphocytes % 32.7 %; Mean Corpuscular HGB Conc 30.3 g/dL (30.0-36.0); Mean Corpuscular Hemoglobin 28.9 pg (28.0-34.0); Mean Corpuscular Volume 95.5 fL (81-99); Mean Platelet Volume 10.8 fL (7.4-10.4); Monocytes # 0.8 10^3/uL (0.2-0.9); Monocytes % 9.3 %; Neutrophils # 4.35 10^3/uL (1.8-7.7); Neutrophils % 51.3 %; Nucleated Red Blood Cells % 0 %; Platelet Count 290 10^3/cmm (130-400); Red Blood Count 4.25 10^6/uL (4.1-5.3); Red Cell Distribution Width 14.4 % (12.1-15.1); White Blood Count 8.5 10^3/uL (4.0-10.0)
[2020-07-21 06:12] LABS: Alanine Aminotransferase 39 U/L (0-33); Albumin Level 2.8 g/dL (3.5-5.2); Alkaline Phosphatase 89 IU/L (35-105); Blood Urea Nitrogen 2 mg/dL (6-20); Calcium 8.5 mg/dL (8.5-10.5); Carbon Dioxide 27 mmol/L (22-29); Chloride 105 mmol/L (98-107); Globulin 2.7 g/dL (1.3-4.6); Glomerular Filtration Rate 176.8 mL/min (90-130); Glucose 120 mg/dL (65-115); Lipase 114 U/L (13-60); Osmolality Calculated 289 mOsm/kg (285-295); Sodium 141 mmol/L (136-145); Total Bilirubin 0.9 mg/dL (0.15-1.2); Total Protein 5.5 g/dL (6.6-8.7)
[2020-07-21 06:15] LABS: Anion Gap 12.5 (5-19); Aspartate Amino Transferase 56 U/L (0-32); Potassium 3.5 mmol/L (3.5-5.1)
[2020-07-21] MEDS: lactated ringers 1,000 ML 100 ML IV ×2 (10:30→21:36)
[2020-07-21 10:43] LABS: Glucose Point of Care 123 mg/dL (70-110)
[2020-07-21] MEDS: enoxaparin 40 mg/0.4 mL Syringe SUBCUT (13:28)
--- NOTE | 2020-07-21 13:45 | PM.PN ---
Subjective Subjective: Interval history: Still having abdominal pain. Not tolerating any food. Drink a little bit of water. Vitals/I&O/Wt Last Vital Signs Temp 99 F 07/21/20 11:23 Pulse 98 07/21/20 11:23 Resp 20 H 07/21/20 11:23 BP 130/78 07/21/20 11:23 Pulse Ox 97 07/21/20 11:23 07/20/20 07/21/20 07/21/20 22:59 06:59 14:59 Intake Total 1000 / 2041.667 305 / 2346.667 1360 / 1360 Output Total 700 / 950 750 / 1700 500 / 500 Balance 300 / 1091.667 -445 / 646.667 860 / 860 Weight last 48 hrs Weight 87.271 kg Weight 86.183 kg Physical Exam Const: COMMON NORMALS: no acute distress, patient oriented x3 and alert NUTRITIONAL APPEARANCE: obese ORIENTATION/CONSCIOUSNESS: Yes awake HENMT: COMMON NORMALS: oropharynx normal Neck/C-Spine: COMMON NORMALS: no JVD Resp: COMMON NORMALS: normal respiratory effort and clear to auscultation bilaterally AUSCULTATION: clear to auscultation bilaterally Cardio: COMMON NORMALS: no JVD, regular rhythm, S1 normal heart sound present, S2 normal heart sound present and No murmurs present (Cardio) RHYTHM: regular rhythm HEART SOUNDS: S1 normal heart sound present and S2 normal heart sound present GI: COMMON NORMALS: Normal to inspection, nondistended, normoactive bowel sounds present and Soft to palpation PALPATION: Yes Soft to palpation and Yes Tenderness to palpation present (GI) Details: other (Epigastric and right upper quadrant) Extremity: COMMON NORMALS: no joint enlargement and no pedal edema Neuro: COMMON NORMALS: patient oriented x3 and moves all extremities SENSORIUM/ORIENTATION: Yes alert Skin: COMMON NORMALS: no rashes or lesions noted GENERAL SKIN EXAM: no rashes or lesions noted Data : 07/21/20 05:30 07/21/20 05:30 Micro: Microbiology 07/20/20 01:56 C.difficile Toxin B Gene (PCR) - Final Stool A&P Assessment and plan (1) Pancreatitis, acute: Symptomatically he is still having pain in the epigastrium and right upper quadrant. Not tolerating oral diet well. Drink some small amounts of water. Lipase was improving, but progress stalled somewhat today at 114. Continue bowel rest, supportive care at this time. Will assess right upper quadrant ultrasound. With a history of chronic pancreatitis with episodes in [address] scan of the abdomen pelvis on admission shows mild stranding around the entire pancreas with pancreatic tail showing a low-attenuation 11 mm nodule, this was discussed with patient and recommended to have continued monitoring of this. Continue IVF NJ was inserted however removed subsequently by patient Hold home Invokana, this could be contributing to her pancreatitis Status: Acute (2) Epilepsy: Seizure precautions On Brivaracetam 25mg daily, reports she has not taken her medication in 3 days Discussed with pharmacy and will convert to IV Keppra while inpatient Status: Acute (3) Essential (primary) hypertension: As needed labetalol Status: Acute (4) Diabetes: Hemoglobin A1c is 6 Hold home Invokana as this can cause pancreatitis Placed on sliding scale insulin as needed Status: Acute (5) Chronic pain of lower extremity, bilateral: IV pain medication PRN Status: Acute Additional A&P Information Dehydration: Continue with IV fluid DVT ppx: Lovenox Diet: CLD, advance to clear as tolerated Code status: Full code Attestations Medical Necessity Statement*: Continue admission for assessment of management of acute pancreatitis. Coding Level of Care Code Acute Associate Programmer for Heather Roman Diagnoses Pancreatitis, acute K85.90 Epilepsy G40.909 Essential (primary) hypertension I10 Diabetes E11.9 Chronic pain of lower extremity, bilateral M79.604; M79.605; G89.29
[2020-07-21 16:44] LABS: Glucose Point of Care 133 mg/dL (70-110)
--- NOTE | 2020-07-21 19:25 | PC.NURSE ---
Pain and nausea have been difficult to control today. Morphine and Ativan were discontinued. Pt continues to have severe abdominal pain, nausea, bouts of dry heaving, and frequent diarrhea. Dr. Pattno notified several times throughout the day to consider increasing medication frequencies and ordering an anti-diarrheal medication. Zofran and Dilaudid frequencies were increased, but physician declined to order any anti-diarrheal medications for risk of toxic megacolon. A rectal tube was ordered instead. Pt was negative for C. diff yesterday, and a stool sample was sent down today for additional studies (bacteria and parasites). Informed oncoming nurse of new orders.
[2020-07-21 20:38] LABS: Glucose Point of Care 108 mg/dL (70-110)
[2020-07-22] VITALS (14 sets, daily range): BP systolic 127–185; BP diastolic 76–99; PULSE 96–115; RESP 12–18; TEMP 36.9–37.5; O2SAT 87–94; BMI 37.5
[2020-07-22] MEDS: ondansetron 2 mg/ML SDV 2 mL 4 MG IVP ×4 (00:22→18:13)
[2020-07-22] MEDS: HYDROmorphone 1 mg/mL INJ 1 mL 0.5 MG IVP ×8 (00:22→21:34)
[2020-07-22] MEDS: promethazine 25 mg/mL SDV 1 mL 12.5 MG IM ×4 (03:09→21:34)
[2020-07-22 05:25] LABS: Basophils # 0.1 10^3/uL (0.0-0.1); Basophils % 0.6 %; Eosinophils # 0.5 10^3/uL (0.0-0.8); Eosinophils % 6.7 %; Hematocrit 40.9 % (37.0-47.0); Hemoglobin 12.6 g/dL (11.5-15.3); Lymphocytes # 2.6 10^3/uL (0.8-4.8); Lymphocytes % 32.4 %; Mean Corpuscular HGB Conc 30.8 g/dL (30.0-36.0); Mean Corpuscular Hemoglobin 29.4 pg (28.0-34.0); Mean Corpuscular Volume 95.6 fL (81-99); Mean Platelet Volume 11.2 fL (7.4-10.4); Monocytes # 0.8 10^3/uL (0.2-0.9); Neutrophils # 3.96 10^3/uL (1.8-7.7); Nucleated Red Blood Cells % 0 %; Platelet Count 252 10^3/cmm (130-400); Red Blood Count 4.28 10^6/uL (4.1-5.3); Red Cell Distribution Width 14.4 % (12.1-15.1); White Blood Count 7.9 10^3/uL (4.0-10.0)
--- NOTE | 2020-07-22 06:00 | US_ITS ---
WS: [id number] ULTRASOUND ABDOMEN LIMITED CLINICAL INFORMATION: RUQ pain, pancreatitis COMPARISON: None. FINDINGS: Liver Size: Normal. Craniocaudal length: 14.6 cm. Echogenicity: Fatty infiltration Surface nodularity: None. Mass (size and location): None. Bile ducts Intrahepatic ducts: Normal. Common bile duct diameter: 0.8 cm. Gallbladder Removed Pancreas Not well seen Right kidney: Normal. Hydronephrosis: None. Size: 9.9 cm x 4.8 cm x 4.8 cm. Abdominal aorta and IVC Visualized portions are normal. Ascites: None. US/US abdomen limited [id number] IMPRESSION: 1. Diffuse fatty infiltration liver. 2. Prior cholecystectomy. 3. Pancreas not well visualized. 4. No hydronephrosis in right kidney.
[2020-07-22 06:47] LABS: Glucose Point of Care 97 mg/dL (70-110)
[2020-07-22 08:37] LABS: Alanine Aminotransferase 43 U/L (0-33); Albumin Level 3.1 g/dL (3.5-5.2); Alkaline Phosphatase 97 IU/L (35-105); Anion Gap 13.2 (5-19); Aspartate Amino Transferase 45 U/L (0-32); Blood Urea Nitrogen 2 mg/dL (6-20); Calcium 8.6 mg/dL (8.5-10.5); Carbon Dioxide 28 mmol/L (22-29); Chloride 104 mmol/L (98-107); Globulin 2.9 g/dL (1.3-4.6); Glomerular Filtration Rate 176.8 mL/min (90-130); Glucose 106 mg/dL (65-115); Lipase 80 U/L (13-60); Osmolality Calculated 291 mOsm/kg (285-295); Potassium 3.2 mmol/L (3.5-5.1); Sodium 142 mmol/L (136-145); Total Bilirubin 0.9 mg/dL (0.15-1.2)
[2020-07-22] MEDS: lactated ringers 1,000 ML 100 ML IV ×2 (09:06→18:21)
--- NOTE | 2020-07-22 11:04 | PC.SOCIAL ---
IMM Update Pg. 2 of IMM updated and reviewed with patient. Copy provided.
[2020-07-22 11:25] LABS: Glucose Point of Care 109 mg/dL (70-110)
[2020-07-22] MEDS: enoxaparin 40 mg/0.4 mL Syringe SUBCUT (12:09)
--- NOTE | 2020-07-22 13:15 | P.PN_ITS ---
Subjective Subjective: Interval history: She reports she is still having pain in epigastrium and right upper quadrant. Still having nausea, vomiting episodes. Vitals/I&O/Wt Last Vital Signs Temp 98.5 F 07/22/20 08:00 Pulse 104 H 07/22/20 08:00 Resp 16 07/22/20 12:05 BP 132/90 07/22/20 08:00 Pulse Ox 93 07/22/20 08:00 07/21/20 07/22/20 07/22/20 22:59 06:59 14:59 Intake Total 1300 / 2765 1000 / 1000 Output Total 500 / 1000 600 / 1600 700 / 700 Balance 800 / 1765 -600 / 1165 300 / 300 Weight last 48 hrs Weight 87.271 kg Weight 87.271 kg Physical Exam Const: COMMON NORMALS: no acute distress, patient oriented x3 and alert GENERAL APPEARANCE: anxious NUTRITIONAL APPEARANCE: obese ORIENTATION/CONSCIOUSNESS: Yes awake OTHER: Baseline is by her side in bed. HENMT: COMMON NORMALS: oropharynx normal Neck/C-Spine: COMMON NORMALS: no JVD Resp: COMMON NORMALS: normal respiratory effort and clear to auscultation bilaterally AUSCULTATION: clear to auscultation bilaterally Cardio: COMMON NORMALS: no JVD, regular rhythm, S1 normal heart sound present, S2 normal heart sound present and No murmurs present (Cardio) RHYTHM: regular rhythm HEART SOUNDS: S1 normal heart sound present and S2 normal heart sound present GI: COMMON NORMALS: Normal to inspection, nondistended, normoactive bowel sounds present and Soft to palpation PALPATION: Yes Soft to palpation and Yes Tenderness to palpation present (GI) (Right upper quadrant and epigastrium. But has somewhat milder tenderness elsewhere as well, appears to be perhaps related to abdominal wall/muscular tenderness is otherwise abdomen is soft.) Extremity: COMMON NORMALS: no joint enlargement and no pedal edema Neuro: COMMON NORMALS: patient oriented x3 and moves all extremities SENSORIUM/ORIENTATION: Yes alert Skin: COMMON NORMALS: no rashes or lesions noted GENERAL SKIN EXAM: no rashes or lesions noted Data : 07/22/20 04:51 07/22/20 06:56 A&P Assessment and plan (1) Pancreatitis, acute: She is reporting still continued pain in epigastrium and her upper quadrant. Discussed with her improving clinical parameters, with lipase down to 80 this morning. Discussed results of abdominal ultrasound which showed fatty liver infiltration. She says that somebody told her that the pancreas still looks angry on ultrasound, although by radiology evaluation pancreas is not well seen. She appears somewhat anxious. Discussed with her whether she is be en under a lot of stress recently or having any problems at home. She says at home she lives with her . Denies any issues. Her fevers do appear to have resolved, but does have some persistent sinus tachycardia. Discussed with her we will for now continue n.p.o. given ongoing symptoms. Cont inue IV hydration supportive, symptomatic treatment. Will reassess in the morning. Discussed with her if persistent symptoms, may reattempt placement of NG and enteral feeding. She would like to avoid this for now. She reports prior episodes of pancreatitis. Asked if she had recently seen gastroenterology, she says she had been referred, but did not follow-up with them. Encouraged her to make sure to follow-up with gastroenterology specialist after discharge due to episodes of pancreatitis, will discussed with her with episodes of chronic pain and, sometimes sternal treatment may be offered in case chronic pain persists due to chronic pancreatitis. She verbalized understanding. Continue bowel rest, supportive care at this time. With a history of chronic pancreatitis with episodes in [address] scan of the abdomen pelvis on admission shows mild stranding around the entire pancreas with pancreatic tail showing a low-attenuation 11 mm nodule, this was discussed with patient and recommended to have continued monitoring of this. Hold home Invokana, this could be contributing to her pancreatitis Status: Acute (2) Epilepsy: Seizure precautions On Brivaracetam 25mg daily, reports she has not taken her medication in 3 days Discussed with pharmacy and will convert to IV Keppra while inpatient Status: Acute (3) Essential (primary) hypertension: As needed labetalol Status: Acute (4) Diabetes: Hemoglobin A1c is 6 Hold home Invokana as this can cause pancreatitis Placed on sliding scale insulin as needed Status: Acute (5) Chronic pain of lower extremity, bilateral: IV pain medication PRN Status: Acute Additional A&P Information Dehydration: Has not established oral intake. Continue with IV fluid DVT ppx: Lovenox Diet: NPO Code status: Full code Attestations Medical Necessity Statement*: Continue admission for assessment management of acute pancreatitis. Coding Level of Care Code Acute Business Machines Teacher for Chg Fwd Diagnoses Pancreatitis, acute K85.90 Epilepsy G40.909 Essential (primary) hypertension I10 Diabetes E11.9 Chronic pain of lower extremity, bilateral M79.604; M79.605; G89.29
[2020-07-22] MEDS: labetalol 5 mg/mL SDV 20mL 10 MG IVP (17:08)
[2020-07-22 17:52] LABS: Glucose Point of Care 104 mg/dL (70-110)
[2020-07-22 21:21] LABS: Glucose Point of Care 88 mg/dL (70-110)
[2020-07-22] MEDS: dextrose 5%-lactated ringers 1,000 ML 100 ML IV (21:35)
[2020-07-23] VITALS (16 sets, daily range): BP systolic 125–166; BP diastolic 74–95; PULSE 103–113; RESP 16–18; TEMP 36.8–37.8; O2SAT 90–94
[2020-07-23] MEDS: ondansetron 2 mg/ML SDV 2 mL 4 MG IVP ×4 (00:47→21:51)
[2020-07-23] MEDS: HYDROmorphone 1 mg/mL INJ 1 mL 0.5 MG IVP ×10 (00:48→23:59)
[2020-07-23 01:08] LABS: Glucose Point of Care 91 mg/dL (70-110)
[2020-07-23] MEDS: promethazine 25 mg/mL SDV 1 mL 12.5 MG IM ×3 (03:58→17:36)
[2020-07-23 06:05] LABS: Alanine Aminotransferase 39 U/L (0-33); Alkaline Phosphatase 98 IU/L (35-105); Aspartate Amino Transferase 38 U/L (0-32); Blood Urea Nitrogen 2 mg/dL (6-20); Calcium 8.8 mg/dL (8.5-10.5); Carbon Dioxide 26 mmol/L (22-29); Chloride 104 mmol/L (98-107); Globulin 2.3 g/dL (1.3-4.6); Glomerular Filtration Rate 176.8 mL/min (90-130); Glucose 121 mg/dL (65-115); Lipase 72 U/L (13-60); Osmolality Calculated 287 mOsm/kg (285-295); Sodium 140 mmol/L (136-145); Total Bilirubin 0.7 mg/dL (0.15-1.2); Total Protein 5.3 g/dL (6.6-8.7)
[2020-07-23 06:11] LABS: Anion Gap 13.5 (5-19); Potassium 3.5 mmol/L (3.5-5.1)
[2020-07-23 06:36] LABS: Basophils # 0.1 10^3/uL (0.0-0.1); Basophils % 0.8 %; Eosinophils # 0.7 10^3/uL (0.0-0.8); Eosinophils % 8.2 %; Hematocrit 42.5 % (37.0-47.0); Hemoglobin 13.2 g/dL (11.5-15.3); Lymphocytes # 2.7 10^3/uL (0.8-4.8); Lymphocytes % 33.6 %; Mean Corpuscular HGB Conc 31.1 g/dL (30.0-36.0); Mean Corpuscular Hemoglobin 28.7 pg (28.0-34.0); Mean Corpuscular Volume 92.4 fL (81-99); Mean Platelet Volume 11.1 fL (7.4-10.4); Monocytes # 0.9 10^3/uL (0.2-0.9); Monocytes % 10.9 %; Neutrophils # 3.66 10^3/uL (1.8-7.7); Neutrophils % 46.2 %; Nucleated Red Blood Cells % 0 %; Platelet Count 250 10^3/cmm (130-400); Red Cell Distribution Width 14.4 % (12.1-15.1); White Blood Count 7.9 10^3/uL (4.0-10.0)
[2020-07-23 06:40] LABS: Glucose Point of Care 110 mg/dL (70-110)
[2020-07-23] MEDS: dextrose 5%-lactated ringers 1,000 ML 100 ML IV ×2 (08:02→17:41)
[2020-07-23 11:01] LABS: Glucose Point of Care 131 mg/dL (70-110)
[2020-07-23] MEDS: enoxaparin 40 mg/0.4 mL Syringe SUBCUT (12:23)
--- NOTE | 2020-07-23 16:43 | XRR_ITS ---
PROCEDURE INFORMATION: Exam: XR Abdomen, 1 View Exam date and time: 07/23/2020 5:23 PM Age: 40 years old Clinical indication: Device placement; Gi device; Other: Tube placement; Patient HX: Checking for placement and advancement to jejum. ; Additional info: Check for placement and advancement to jejum. TECHNIQUE: Imaging protocol: XR of the abdomen. Views: Frontal supine view of the abdomen. 1 View. COMPARISON: CT abdomen pelvis w con* [id number] 07/17/2020 9:46 AM FINDINGS: Tubes, catheters and devices: NG tube extends into the stomach Gastrointestinal tract: Normal. No bowel dilation. Status post cholecystectomy Bones/joints: Unremarkable. XR/XR abdomen 1V* [id number] IMPRESSION: 1. No acute findings. 2. Status post cholecystectomy 3. NG tube is in the stomach
[2020-07-23 17:27] LABS: Glucose Point of Care 115 mg/dL (70-110)
--- NOTE | 2020-07-23 19:10 | P.PN_ITS ---
Subjective Subjective: Interval history: Today she is still having abdominal pain. Still having some dry heaving and spitting up some clear saliva. No appetite. Vitals/I&O/Wt Last Vital Signs Temp 98.5 F 07/23/20 16:00 Pulse 105 H 07/23/20 16:00 Resp 18 07/23/20 17:36 BP 155/83 07/23/20 16:00 Pulse Ox 93 07/23/20 16:00 07/23/20 07/23/20 07/23/20 06:59 14:59 22:59 Intake Total 105 / 2155 1105 / 1105 965 / 2070 Output Total 300 / 1200 100 / 100 Balance -195 / 955 1005 / 1005 965 / 1970 Weight last 48 hrs Weight 87.09 kg Weight 87.271 kg Physical Exam Const: COMMON NORMALS: no acute distress, patient oriented x3 and alert GENERAL APPEARANCE: anxious NUTRITIONAL APPEARANCE: obese ORIENTATION/CONSCIOUSNESS: Yes awake OTHER: Baseline is by her side in bed. HENMT: COMMON NORMALS: oropharynx normal Neck/C-Spine: COMMON NORMALS: no JVD Resp: COMMON NORMALS: normal respiratory effort and clear to auscultation bilaterally AUSCULTATION: clear to auscultation bilaterally Cardio: COMMON NORMALS: no JVD, regular rhythm, S1 normal heart sound present, S2 normal heart sound present and No murmurs present (Cardio) RHYTHM: regular rhythm HEART SOUNDS: S1 normal heart sound present and S2 normal heart sound present GI: COMMON NORMALS: Normal to inspection, nondistended, normoactive bowel sounds present and Soft to palpation PALPATION: Yes Soft to palpation and Yes Tenderness to palpation present (GI) (Right upper quadrant and epigastrium. But has somewhat milder tenderness elsewhere as well, appears to be perhaps related to abdominal wall/muscular tenderness is otherwise abdomen is soft.) Extremity: COMMON NORMALS: no joint enlargement and no pedal edema Neuro: COMMON NORMALS: patient oriented x3 and moves all extremities SENSORIUM/ORIENTATION: Yes alert Skin: COMMON NORMALS: no rashes or lesions noted GENERAL SKIN EXAM: no rashes or lesions noted Data : 07/23/20 06:30 07/23/20 05:20 Micro: Microbiology 07/21/20 18:00 Enteric Pathogens (PCR) - Final Stool Routine Collection Parasite Antigen Panel - Final A&P Assessment and plan (1) Pancreatitis, acute: Still having abdominal pain. No appetite. Lipase is gradually d ecreasing. Transaminitis gradually improving. Still had a low-grade fever this morning. Has not been eating. Discussed with her as she has not eaten anything in 9 days we will try to place postpyloric nasoenteric tube and initiate tube feedings. Reassess in the morning. If no improvement, will consider additional imaging by CT. She reports prior episodes of pancreatitis. Asked if she had recently seen gastroenterology, she says she had been referred, but did not follow-up with them. Encouraged her to make sure to follow-up with gastroenterology specialist after discharge due to episodes of pancreatitis, will discussed with her with episodes of chronic pain and, sometimes sternal treatment may be offered in case chronic pain persists due to chronic pancreatitis. She verbalized under standing. Continue bowel rest, supportive care at this time. With a history of chronic pancreatitis with episodes in [address] scan of the abdomen pelvis on admission shows mild stranding around the entire pancreas with pancreatic tail showing a low-attenuation 11 mm nodule, this was discussed with patient and recommended to have continued monitoring of this. Hold home Invokana, this could be contributing to her pancreatitis Status: Acute (2) Epilepsy: Seizure precautions On Brivaracetam 25mg daily, reports she has not taken her medication in 3 days Discussed with pharmacy and will convert to IV Keppra while inpatient Status: Acute (3) Essential (primary) hypertension: As needed labetalol Status: Acute (4) Diabetes: Hemoglobin A1c is 6 Hold home Invokana as this can cause pancreatitis Placed on sliding scale insulin as needed Status: Acute (5) Chronic pain of lower extremity, bilateral: IV pain medication PRN Status: Acute Additional A&P Information Dysuria: Reports some dysuria today. Will check UA. Dehydration: Has not established oral intake. Continue with IV fluid DVT ppx: Lovenox Diet: NPO Code status: Full code Attestations Medical Necessity Statement*: Continue admission for assessment of management of acute pancreatitis. Coding Level of Care Code Acute Optical Glass Inspector for [facility] Fwd Diagnoses Pancreatitis, acute K85.90 Epilepsy G40.909 Essential (primary) hypertension I10 Diabetes E11.9 Chronic pain of lower extremity, bilateral M79.604; M79.605; G89.29
--- NOTE | 2020-07-23 19:38 | PC.NURSE ---
summary Pt has no vomiting today other than at change of shift this morning but still c/o nausea. Pt continued to c/o right abd and right lower back pain. She stated the pain meds doesn't last the 3hrs only about 2hrs. I talked with Dr Patton who had me change time on the Dilaudid to q2hrs prn and place NG tube to the jejunum. I place a 12 NG with sm return of green bile. As of right now we are waiting for Radiologist to call and let us know how much further NG needs to go to be in the jejunum. I explained to manufacturing shift supervisor to look for it from radiology. Pt did complain about the bsc not being emptied out during the night and this was addressed my the charge nurse Lakshmi who talked with the about the complains.
[2020-07-23] MEDS: labetalol 5 mg/mL SDV 20mL 10 MG IVP (20:05)
[2020-07-23 21:32] LABS: Glucose Point of Care 113 mg/dL (70-110)
--- NOTE | 2020-07-23 23:26 | XRR_ITS ---
PROCEDURE INFORMATION: Exam: XR Abdomen, 1 View Exam date and time: 07/24/2020 12:48 AM Age: 40 years old Clinical indication: Device placement; Gi device; Other: Nj tube advancement; Additional info: Check placement and advancement in jejunum TECHNIQUE: Imaging protocol: XR of the abdomen. Views: Frontal supine view of the abdomen. 1 View. COMPARISON: CR (ABDOMEN, ) 07/23/2020 5:11 PM FINDINGS: Tubes, catheters and devices: The enteric tube terminates near the junction of the gastric body and antrum. Gastrointestinal tract: Unremarkable in its visualized portion. No obstruction visualized. Bones/joints: No acute abnormality. XR/XR abdomen 1V* [id number] IMPRESSION: The enteric tube terminates near the junction of the gastric body and antrum.
[2020-07-24] VITALS (15 sets, daily range): BP systolic 116–186; BP diastolic 74–106; PULSE 75–115; RESP 16–20; TEMP 36.3–37.4; O2SAT 91–95
[2020-07-24] MEDS: promethazine 25 mg/mL SDV 1 mL 12.5 MG IM ×4 (00:52→23:32)
[2020-07-24] MEDS: HYDROmorphone 1 mg/mL INJ 1 mL 0.5 MG IVP ×9 (02:20→23:34)
[2020-07-24] MEDS: ondansetron 2 mg/ML SDV 2 mL 4 MG IVP ×3 (04:22→17:28)
[2020-07-24] MEDS: dextrose 5%-lactated ringers 1,000 ML 100 ML IV ×2 (04:25→15:12)
[2020-07-24 05:12] LABS: Basophils # 0.1 10^3/uL (0.0-0.1); Basophils % 0.8 %; Eosinophils # 0.4 10^3/uL (0.0-0.8); Eosinophils % 5.7 %; Hematocrit 40.4 % (37.0-47.0); Hemoglobin 12.8 g/dL (11.5-15.3); Lymphocytes # 3.1 10^3/uL (0.8-4.8); Lymphocytes % 42.5 %; Mean Corpuscular HGB Conc 31.7 g/dL (30.0-36.0); Mean Corpuscular Volume 91.6 fL (81-99); Mean Platelet Volume 12.2 fL (7.4-10.4); Monocytes # 0.8 10^3/uL (0.2-0.9); Monocytes % 11.1 %; Neutrophils % 39.8 %; Nucleated Red Blood Cells % 0 %; Platelet Count 257 10^3/cmm (130-400); Red Blood Count 4.41 10^6/uL (4.1-5.3); Red Cell Distribution Width 14.3 % (12.1-15.1); White Blood Count 7.3 10^3/uL (4.0-10.0)
[2020-07-24 05:46] LABS: Alanine Aminotransferase 33 U/L (0-33); Albumin Level 2.7 g/dL (3.5-5.2); Alkaline Phosphatase 96 IU/L (35-105); Aspartate Amino Transferase 27 U/L (0-32); Blood Urea Nitrogen 2 mg/dL (6-20); Calcium 8.9 mg/dL (8.5-10.5); Carbon Dioxide 27 mmol/L (22-29); Chloride 104 mmol/L (98-107); Globulin 3.1 g/dL (1.3-4.6); Glomerular Filtration Rate 136.6 mL/min (90-130); Glucose 122 mg/dL (65-115); Osmolality Calculated 289 mOsm/kg (285-295); Sodium 141 mmol/L (136-145); Total Bilirubin 0.6 mg/dL (0.15-1.2); Total Protein 5.8 g/dL (6.6-8.7)
[2020-07-24 05:50] LABS: Anion Gap 13.1 (5-19); Potassium 3.1 mmol/L (3.5-5.1)
--- NOTE | 2020-07-24 05:57 | PC.NURSE ---
Patient had pain and nausea throughout the night, it was only barely controlled by meds ordered. Patient didn't obtain much sleep.
[2020-07-24 07:13] LABS: Glucose Point of Care 131 mg/dL (70-110)
[2020-07-24 07:19] LABS: Add Urine Microscopic? YES; Bilirubin Urine Neg (Negative); Blood Urine Neg (Negative); Glucose Urine UA Trace (Normal); Ketones Urine Negative (Negative); Leukocyte Esterase Urine Negative (Negative); Nitrate Urine Negative (Negative); Protein Urine Neg (Negative); Urine Appearance Hazy (CLEAR); Urine Color Yellow (Yellow); Urobilinogen Urine 1 mg/dL (Negative); pH Urine 9 (5-7)
[2020-07-24 07:20] LABS: Add Urine Culture? No; Bacteria Urine 2+ /hpf; Squamous Epithelial Cell Urine 15-25 /hpf (0-5); WBC Urine RARE /hpf (0-5)
[2020-07-24 09:49] LABS: Lipase 56 U/L (13-60)
[2020-07-24 10:58] LABS: Glucose Point of Care 124 mg/dL (70-110)
--- NOTE | 2020-07-24 11:14 | ECG_ITS ---
[facility] Test Date: 2020-07-24 Pat Name: Eleanor Ragland Department: Room: 257 Gender: Female Lodging Manager: : 1980 Requested By: Brett Patton Order Number: [id number] Dianna MD: Rahul Zambrano M.D. Measurements Intervals [place] Rate: 107 P: 33 SC: 105 QRS: -4 QRSD: 90 T: 200 QT: 389 QTc: 521 Interpretive Statements SINUS TACHYCARDIA WITH SHORT SC INTERVAL LEFT VENTRICULAR HYPERTROPHY AND ST-T CHANGE [VOLTAGE CRITERIA PLUS ST/T ABNORMALITY] POSSIBLE ANTERIOR MYOCARDIAL INFARCTION [30 ms Q WAVE IN V3/V4, OR R < 0.2 mV IN V4], OF INDETERMINATE AGE INFERIOR MYOCARDIAL INFARCTION [40+ ms Q WAVE AND/OR ST/T ABNORMALITY IN II/aVF], OF INDETERMINATE AGE Compared to ECG 09/10/2017 10:40:46 No significant changes Electronically Signed On 07-24-2020 18:30:10 CDT by Rahul Zambrano M.D. [email or web address]
--- NOTE | 2020-07-24 11:24 | XR_ITS ---
WS: [id number] Portable AP upright chest, 07/24/2020 Clinical Data: Tube placement Comparison: Portable chest, 07/18/2020. Findings: No nodules, masses or effusions are seen. The heart is normal. The pulmonary vascularity is not increased. No pneumonia or pneumothorax is seen. The gastric tube appears to progress beyond the hilus into the first part of the descending duodenum. There are clips in the right upper quadrant fr om cholecystectomy XR/XR chest 1V portable [id number] Impression: Negative chest.
--- NOTE | 2020-07-24 11:32 | PC.SOCIAL ---
IMM Updated Updated pt on Pg 2 IMM. No questions voiced. Signed, dated, & timed copy for chart.
[2020-07-24 12:21] LABS: Glucose Point of Care 136 mg/dL (70-110)
[2020-07-24] MEDS: enoxaparin 40 mg/0.4 mL Syringe SUBCUT (12:30)
--- NOTE | 2020-07-24 13:50 | PM.PN ---
Subjective Subjective: Interval history: This morning she was still having abdominal pain. She thought perhaps she was minimally better and was going to try little bit of Sprite, however, then had to be relocated to a different room after finding a bedbug, and that made the pain return, and made her lose her appetite. Vitals/I&O/Wt Last Vital Signs Temp 98.1 F 07/24/20 12:00 Pulse 107 H 07/24/20 12:00 Resp 16 07/24/20 12:45 BP 158/81 07/24/20 12:00 Pulse Ox 91 07/24/20 12:00 07/23/20 07/24/20 07/24/20 22:59 06:59 14:59 Intake Total 965 / 2070 1105 / 3175 Output Total 500 / 600 950 / 1550 Balance 465 / 1470 155 / 1625 Weight last 48 hrs Weight 81.238 kg Weight 87.09 kg Physical Exam Const: COMMON NORMALS: no acute distress, patient oriented x3 and alert GENERAL APPEARANCE: anxious NUTRITIONAL APPEARANCE: obese ORIENTATION/CONSCIOUSNESS: Yes awake OTHER: Awake, alert, sitting up in bed. NG tube in place. HENMT: COMMON NORMALS: oropharynx normal Neck/C-Spine: COMMON NORMALS: no JVD Resp: COMMON NORMALS: normal respiratory effort and clear to auscultation bilaterally AUSCULTATION: clear to auscultation bilaterally Cardio: COMMON NORMALS: no JVD, regular rhythm, S1 normal heart sound present, S2 normal heart sound present and No murmurs present (Cardio) RHYTHM: regular rhythm HEART SOUNDS: S1 normal heart sound present and S2 normal heart sound present GI: COMMON NORMALS: Normal to inspection, nondistended, normoactive bowel sounds present and Soft to palpation PALPATION: Yes Soft to palpation and Yes Tenderness to palpation present (GI) (Right upper quadrant and epigastrium. But has somewhat milder tenderness elsewhere as well, appears to be perhaps related to abdominal wall/muscular tenderness is otherwise abdomen is soft.) Extremity: COMMON NORMALS: no joint enlargement and no pedal edema Neuro: COMMON NORMALS: patient oriented x3 and moves all extremities SENSORIUM/ORIENTATION: Yes alert Skin: COMMON NORMALS: no rashes or lesions noted GENERAL SKIN EXAM: no rashes or lesions noted Data : 07/24/20 04:41 10/22/20 04:41 Micro: Microbiology 07/23/20 13:15 Urine Culture - Final Urine,Clean Catch A&P Assessment and plan (1) Pancreatitis, acute: NG tube has been advanced into the lower portion of the duodenum. Discussed with RN may initiate tube feeding continuously. If she has some improvement in symptoms may try little bit oral diet as her lipase continues to improve. Discussed with her and she would like to for now hold off on repeating CT scan as she thinks she might be getting a tiny bit better. Her fever appears to have resolved since midnight of 07/23. Sinus tachycardia is still persistent, but perhaps slightly better. Continue supportive care for acute pancreatitis. Still having abdominal pain. No appetite. Lipase is gradually decreasing. Transaminitis gradually improving. Still had a low-grade fever this morning. Has not been eating. Discussed with her as she has not eaten anything in 9 days we will try to place postpyloric nasoenteric tube and initiate tube feedings. Reassess in the morning. If no improvement, will consider additional imaging by CT. She reports prior episodes of pancreatitis. Asked if she had recently seen gastroenterology, she says she had been referred, but did not follow-up with them. Encouraged her to make sure to follow-up with gastroenterology specialist after discharge due to episodes of pancreatitis, will discussed with her with episodes of chronic pain and, sometimes sternal treatment may be offered in case chronic pain persists due to chronic pancreatitis. She verbalized understanding. Continue bowel rest, supportive care at this time. With a history of chronic pancreatitis with episodes in [address] scan of the abdomen pelvis on admission shows mild stranding around the entire pancreas with pancreatic tail showing a low-attenuation 11 mm nodule, this was discussed with patient and recommended to have continued monitoring of this. Hold home Invokana, this could be contributing to her pancreatitis Status: Acute (2) Epilepsy: Seizure precautions On Brivaracetam 25mg daily, reports she has not taken her medication in 3 days IV Keppra while inpatient Reports today got so upset after finding a bed back and having to be moved and placed in isolation, as well as felt that she was being judged. [place] that due to anxiety was almost perhaps going to have a seizure. Status: Acute (3) Essential (primary) hypertension: As needed labetalol Status: Acute (4) Diabetes: Hemoglobin A1c is 6 Hold home Invokana as this can cause pancreatitis Placed on sliding scale insulin as needed Status: Acute (5) Chronic pain of lower extremity, bilateral: IV pain medication PRN Status: Acute (6) Bed bug bite: Noticed bedbug after feeling a bite. Insect was caught and trapped in a sample jar. Looks like a bedbug. She is not sure whether it is hers. States that at home she has not seen any, although understands that she may not have seen them there nocturnal, but also says has not really had any bites. They had just moved with her to a new place. She had a roommate, although her roommate was recently relocated from a different room in the hospital, and I am told does not have known bedbugs. Discussed with her would benefit from assessment at home by a specialist/research environmental scientist to see if in fact there may be some bedbugs they may not be aware of. She states will discuss with her . Has been moved to a different room and for now placed in isolation empirically. Status: Acute Additional A&P Information Dysuria: Reported some dysuria. UA not suggestive of UTI. Dehydration: Has not established oral intake. Continue with IV fluid DVT ppx: Lovenox Diet: NPO liquid trials as tolerating. Tube feeding. Code status: Full code Attestations Medical Necessity Statement*: Continue admission for assessment management of acute pancreatitis, inability to tolerate oral intake of food or drink. Coding Level of Care Code Acute Research Worker Encyclopedia for [facility] Diagnoses Pancreatitis, acute K85.90 Epilepsy G40.909 Essential (primary) hypertension I10 Diabetes E11.9 Chronic pain of lower extremity, bilateral M79.604; M79.605; G89.29 Bed bug bite [id number]
[2020-07-24 17:01] LABS: Glucose Point of Care 107 mg/dL (70-110)
[2020-07-24 20:49] LABS: Glucose Point of Care 101 mg/dL (70-110)
[2020-07-24] MEDS: ALPRAZolam 0.25 mg Tablet PO (23:47)
[2020-07-25] VITALS (17 sets, daily range): BP systolic 134–169; BP diastolic 77–93; PULSE 71–111; RESP 12–18; TEMP 36.7–37.3; O2SAT 93–96
[2020-07-25] MEDS: ondansetron 2 mg/ML SDV 2 mL 4 MG IVP ×4 (02:24→22:57)
[2020-07-25] MEDS: HYDROmorphone 1 mg/mL INJ 1 mL 0.5 MG IVP ×9 (02:24→22:57)
[2020-07-25] MEDS: dextrose 5%-lactated ringers 1,000 ML 100 ML IV ×3 (02:54→17:50)
[2020-07-25 05:27] LABS: Basophils # 0.1 10^3/uL (0.0-0.1); Basophils % 0.6 %; Eosinophils # 0.5 10^3/uL (0.0-0.8); Eosinophils % 6.1 %; Hematocrit 40.5 % (37.0-47.0); Hemoglobin 12.6 g/dL (11.5-15.3); Lymphocytes # 3.1 10^3/uL (0.8-4.8); Lymphocytes % 40.6 %; Mean Corpuscular HGB Conc 31.1 g/dL (30.0-36.0); Mean Corpuscular Volume 93.3 fL (81-99); Monocytes # 0.8 10^3/uL (0.2-0.9); Monocytes % 10.9 %; Neutrophils # 3.22 10^3/uL (1.8-7.7); Neutrophils % 41.5 %; Nucleated Red Blood Cells % 0 %; Platelet Count 235 10^3/cmm (130-400); Red Blood Count 4.34 10^6/uL (4.1-5.3); Red Cell Distribution Width 14.5 % (12.1-15.1); White Blood Count 7.7 10^3/uL (4.0-10.0)
[2020-07-25] MEDS: ALPRAZolam 0.25 mg Tablet PO ×3 (05:40→22:57)
[2020-07-25] MEDS: promethazine 25 mg/mL SDV 1 mL 12.5 MG IM ×3 (05:45→18:21)
--- NOTE | 2020-07-25 06:00 | PC.NURSE ---
Patient has complained of pain and nausea throughout the night, however, compared to the night before she is better on pain and nausea control. The patient has got some periods of sleep. If the patient is going to be here for an extended stay, this nurse would suggest a FINGERPRINT CLASSIFIER pump.
[2020-07-25 06:06] LABS: Alanine Aminotransferase 24 U/L (0-33); Albumin Level 2.6 g/dL (3.5-5.2); Alkaline Phosphatase 90 IU/L (35-105); Anion Gap 12.2 (5-19); Aspartate Amino Transferase 23 U/L (0-32); Blood Urea Nitrogen 2 mg/dL (6-20); Calcium 8.5 mg/dL (8.5-10.5); Carbon Dioxide 26 mmol/L (22-29); Chloride 104 mmol/L (98-107); Glomerular Filtration Rate 176.8 mL/min (90-130); Glucose 124 mg/dL (65-115); Osmolality Calculated 286 mOsm/kg (285-295); Potassium 3.2 mmol/L (3.5-5.1); Sodium 139 mmol/L (136-145); Total Bilirubin 0.7 mg/dL (0.15-1.2); Total Protein 5.6 g/dL (6.6-8.7)
[2020-07-25 06:36] LABS: Lipase 61 U/L (13-60)
[2020-07-25 06:47] LABS: Glucose Point of Care 110 mg/dL (70-110)
[2020-07-25 10:46] LABS: Glucose Point of Care 114 mg/dL (70-110)
--- NOTE | 2020-07-25 11:28 | PC.NURSE ---
Patient continues to report nausea this morning despite PRN medication regimen, Dr. Weber aware and reports will obtain a CT today to further evaluate. No gastric tube feeding residual noted this morning.
[2020-07-25] MEDS: enoxaparin 40 mg/0.4 mL Syringe SUBCUT (11:50)
--- NOTE | 2020-07-25 12:39 | PC.NURSE ---
patient talking on phone with mother laughing and no distress noted.
[2020-07-25] MEDS: labetalol 5 mg/mL SDV 20mL 10 MG IVP (14:06)
--- NOTE | 2020-07-25 15:44 | PM.PN ---
Subjective Subjective: Interval history: She reports she is feeling tired. Today she is reporting new sharp pain that is wrapping around her at the lower right chest/rib cage. It is triggered on palpation, changing position. She is otherwise still having discomfort across the upper abdomen and into right upper quadrant and right flank. Runny nose due to naso-enteral tube. Vitals/I&O/Wt Last Vital Signs Temp 98.5 F 07/25/20 11:10 Pulse 111 H 07/25/20 11:10 Resp 16 07/25/20 13:58 BP 169/93 07/25/20 11:10 Pulse Ox 93 07/25/20 11:10 07/25/20 07/25/20 07/25/20 06:59 14:59 22:59 Intake Total 1105.000 / 2210.000 588.333 / 588.333 Output Total 950 / 950 700 / 700 Balance 155.000 / 1260.000 -111.667 / -111.667 Weight last 48 hrs Weight 81.42 kg Weight 81.238 kg Physical Exam Const: COMMON NORMALS: no acute distress, patient oriented x3 and alert GENERAL APPEARANCE: anxious NUTRITIONAL APPEARANCE: obese ORIENTATION/CONSCIOUSNESS: Yes awake OTHER: Awake, alert, sitting up in bed. NG tube in place. Receiving tube feedings. HENMT: COMMON NORMALS: oropharynx normal Neck/C-Spine: COMMON NORMALS: no JVD Resp: COMMON NORMALS: normal respiratory effort and clear to auscultation bilaterally AUSCULTATION: clear to auscultation bilaterally Cardio: COMMON NORMALS: no JVD, regular rhythm, S1 normal heart sound present, S2 normal heart sound present and No murmurs present (Cardio) RHYTHM: regular rhythm HEART SOUNDS: S1 normal heart sound present and S2 normal heart sound present GI: COMMON NORMALS: Normal to inspection, nondistended, normoactive bowel sounds present and Soft to palpation PALPATION: Yes Soft to palpation and Yes Tenderness to palpation present (GI) (Tender across upper abdomen and into the right upper quadrant. Also tender right lower chest over the lower ribs reproducible on palpation.) Extremity: COMMON NORMALS: no joint enlargement and no pedal edema Neuro: COMMON NORMALS: patient oriented x3 and moves all extremities SENSORIUM/ORIENTATION: Yes alert Skin: COMMON NORMALS: no rashes or lesions noted GENERAL SKIN EXAM: no rashes or lesions noted Data : 07/25/20 05:02 07/25/20 05:02 A&P Assessment and plan (1) Pancreatitis, acute: Persistent abdominal pain. Some of the pain appears to be as discussed with her due to intercostal injury, possibly rib injury or even fracture, possibly set to vomiting. This appears to be reproducible by palpation of the chest wall and remains in the costal distribution. She is still having pain across the upper abdomen. Says that she tried some Sprite yesterday but could not tolerate it. Has been to her any tube feeds far, apart from being bothered by the NG tube in her nose. She is agreeable for additional evaluation by CT scan given persistent symptoms. Lipase today is a little bit worse at 61. Temperature 99.2. Continue supportive care for acute pancreatitis. Trials of p.o. liquids if appetite improves. She reports prior episodes of pancreatitis. Asked if she had recently seen gastroenterology, she says she had been referred, but did not follow-up with them. Encouraged her to make sure to follow-up with gastroenterology specialist after discharge due to episodes of pancreatitis, will discussed with her with episodes of chronic pain and, sometimes sternal treatment may be offered in case chronic pain persists due to chronic pancreatitis. She verbalized understanding. Continue bowel rest, supportive care at this time. With a history of chronic pancreatitis with episodes in [address] scan of the abdomen pelvis on admission shows mild stranding around the entire pancreas with pancreatic tail showing a low-attenuation 11 mm nodule, this was discussed with patient and recommended to have continued monitoring of this. Hold home Invokana, this could be contributing to her pancreatitis Status: Acute (2) Epilepsy: Seizure precautions On Brivaracetam 25mg daily, reports she has not taken her medication in 3 days IV Keppra while inpatient Reports today got so upset after finding a bed back and having to be moved and placed in isolation, as well as felt that she was being judged. [place] that due to anxiety was almost perhaps going to have a seizure. Status: Acute (3) Essential (primary) hypertension: As needed labetalol Status: Acute (4) Diabetes: Hemoglobin A1c is 6 Hold home Invokana as this can cause pancreatitis Sliding scale insulin as needed Status: Acute (5) Chronic pain of lower extremity, bilateral: IV pain medication PRN Status: Acute (6) Bed bug bite: Possible bedbugs. Noticed bedbug after feeling a bite. Insect was caught and trapped in a sample jar. Looks like a bedbug. She is not sure whether it is hers. States that at home she has not seen any, although understands that she may not have seen them there nocturnal, but also says has not really had any bites. They had just moved with her to a new place. She had a roommate, although her roommate was recently relocated from a different room in the hospital, and I am told does not have known bedbugs. Discussed with her would benefit from assessment at home by a specialist/stiff straw hat washer to see if in fact there may be some bedbugs they may not be aware of. She states will discuss with her . Has been moved to a different room and for now placed in isolation empirically. Status: Acute Additional A&P Information Dysuria: Reported some dysuria. UA not suggestive of UTI. Dehydration: Has not established oral intake. Continue with IV fluid DVT ppx: Lovenox Diet: NPO liquid trials as tolerating. Tube feeding. Code status: Full code Attestations Medical Necessity Statement*: Continue admission for assessment and management of acute pancreatitis. Coding Level of Care Code Acute Senior It Architect for [facility] Fwd Diagnoses Pancreatitis, acute K85.90 Epilepsy G40.909 Essential (primary) hypertension I10 Diabetes E11.9 Chronic pain of lower extremity, bilateral M79.604; M79.605; G89.29 Bed bug bite [id number]
--- NOTE | 2020-07-25 15:48 | CTR_ITS ---
PROCEDURE INFORMATION: Exam: CT Abdomen And Pelvis With Contrast Exam date and time: 07/25/2020 5:05 PM Age: 40 years old Clinical indication: Abdominal pain; Periumbilical; Prior surgery; Surgery date: 6+ months; Surgery type: Gb; Patient HX: C/O abd pain - persistent pancreatitis TECHNIQUE: Imaging protocol: Computed tomography of the abdomen and pelvis with intravenous contrast. Radiation optimization: All CT scans at this facility use at least one of these dose optimization techniques: automated exposure control; mA and/or kV adjustment per patient size (includes targeted exams where dose is matched to clinical indication); or iterative reconstruction. Contrast material: OMNI 300; Contrast volume: 95 ml; Contrast route: INTRAVENOUS (IV); COMPARISON: CT abdomen pelvis w con* [id number] 07/17/2020 9:46 AM RADIATION DOSE METRICS: Total DLP (mGy-cm): 848.45 FINDINGS: Tubes, catheters and devices: NG tube tip in proximal jejunum. Liver: Probable mild hepatic steatosis, unchanged. Gallbladder and bile ducts: Prior cholecystectomy. Pancreas: Mild low-density fluid/edema in and around portions of pancreas appears unchanged consistent with mild pancreatitis. No pseudocyst. Spleen: Normal. No splenomegaly. Adrenals: Approximately 1.7 cm low-density left adrenal adenoma or cyst, unchanged. Kidneys and ureters: Normal. No hydronephrosis. Stomach and bowel: Unremarkable. No obstruction. No mucosal thickening. Appendix: No evidence of appendicitis. Intraperitoneal space: Unremarkable. No free air. No significant fluid collection. Vasculature: Unremarkable. No abdominal aortic aneurysm. Lymph nodes: Unremarkable. No enlarged lymph nodes. Urinary bladder: Unremarkable as visualized. Reproductive: Unremarkable as visualized. Bones/joints: Unremarkable. No acute fracture. Soft tissues: Unremarkable. CT/CT abdomen pelvis w con* [id number] IMPRESSION: 1.) Mild low-density fluid/edema in and around portions of pancreas appears unchanged consistent with mild pancreatitis. No pseudocyst. 2.) Approximately 1.7 cm low-density left adrenal adenoma or cyst, unchanged. Radiation Dose CTDIVOL = (mGy): DLP = 848.45 (mGy-cm)
[2020-07-25 17:08] LABS: Glucose Point of Care 102 mg/dL (70-110)
[2020-07-25] MEDS: iohexol 300 mg/mL 100 mL Btl IV (17:12)
--- NOTE | 2020-07-25 19:46 | PC.NURSE ---
Patient was complaining of her eyes burning and nose running. Patient was wondering if this was due to allergy's. Will inform day shift to inform doctor.
[2020-07-25 21:53] LABS: Glucose Point of Care 123 mg/dL (70-110)
[2020-07-26] VITALS (15 sets, daily range): BP systolic 139–158; BP diastolic 68–91; PULSE 105–112; RESP 16–19; TEMP 36.8–37.2; O2SAT 91–94
[2020-07-26] MEDS: HYDROmorphone 1 mg/mL INJ 1 mL 0.5 MG IVP ×9 (01:57→22:28)
[2020-07-26] MEDS: promethazine 25 mg/mL SDV 1 mL 12.5 MG IM ×4 (02:56→22:10)
[2020-07-26] MEDS: ondansetron 2 mg/ML SDV 2 mL 4 MG IVP ×3 (04:58→18:08)
--- NOTE | 2020-07-26 05:42 | NUR.SHIFT ---
Patient had periods of sleep throughout the night, only had to redress the NG tube once. Patient is attempting to drink fluids at a slow pace due to the pain/nausea it may cause if intake to fast. Patients pain and nausea was well controlled throughout the night by the meds in the dec. If the patient's hospital stay continues, patient may benefit using a WEIGHING STATION OPERATOR pump.
[2020-07-26 05:49] LABS: Basophils # 0.1 10^3/uL (0.0-0.1); Basophils % 1.1 %; Eosinophils # 0.6 10^3/uL (0.0-0.8); Eosinophils % 9.6 %; Hematocrit 40.9 % (37.0-47.0); Hemoglobin 12.5 g/dL (11.5-15.3); Lymphocytes # 2.8 10^3/uL (0.8-4.8); Lymphocytes % 43.9 %; Mean Corpuscular HGB Conc 30.6 g/dL (30.0-36.0); Mean Corpuscular Hemoglobin 28.5 pg (28.0-34.0); Mean Corpuscular Volume 93.2 fL (81-99); Mean Platelet Volume 12.3 fL (7.4-10.4); Monocytes # 0.7 10^3/uL (0.2-0.9); Monocytes % 10.9 %; Neutrophils # 2.21 10^3/uL (1.8-7.7); Neutrophils % 34.3 %; Nucleated Red Blood Cells % 0 %; Platelet Count 258 10^3/cmm (130-400); Red Blood Count 4.39 10^6/uL (4.1-5.3); Red Cell Distribution Width 14.3 % (12.1-15.1); White Blood Count 6.4 10^3/uL (4.0-10.0)
[2020-07-26] MEDS: dextrose 5%-lactated ringers 1,000 ML 100 ML IV ×2 (06:08→15:10)
[2020-07-26 06:24] LABS: Alanine Aminotransferase 22 U/L (0-33); Albumin Level 2.6 g/dL (3.5-5.2); Alkaline Phosphatase 92 IU/L (35-105); Anion Gap 12.3 (5-19); Aspartate Amino Transferase 23 U/L (0-32); Blood Urea Nitrogen 2 mg/dL (6-20); Calcium 8.5 mg/dL (8.5-10.5); Carbon Dioxide 26 mmol/L (22-29); Chloride 105 mmol/L (98-107); Globulin 3.1 g/dL (1.3-4.6); Glomerular Filtration Rate 246.4 mL/min (90-130); Glucose 113 mg/dL (65-115); Osmolality Calculated 287 mOsm/kg (285-295); Potassium 3.3 mmol/L (3.5-5.1); Sodium 140 mmol/L (136-145); Total Bilirubin 0.8 mg/dL (0.15-1.2); Total Protein 5.7 g/dL (6.6-8.7)
[2020-07-26 06:42] LABS: Glucose Point of Care 114 mg/dL (70-110)
[2020-07-26] MEDS: ALPRAZolam 0.25 mg Tablet PO ×2 (07:37→18:32)
[2020-07-26 08:20] LABS: Lipase 56 U/L (13-60)
--- NOTE | 2020-07-26 08:49 | PC.NURSE ---
Patient remains to report nausea but no emesis, gastric tube had no residual noted from tube feeding, reports pain level of 8-10 when asked, but after medicating prn resting when enters the room, alert and oriented, discussed plan of care, verbalized understanding.
--- NOTE | 2020-07-26 10:15 | PC.SOCIAL ---
IMM Updated Page 2 of IMM updated and given to patient. Initialed, dated, and timed and placed back in chart.
[2020-07-26 12:00] LABS: Glucose Point of Care 115 mg/dL (70-110)
[2020-07-26] MEDS: enoxaparin 40 mg/0.4 mL Syringe SUBCUT (12:14)
[2020-07-26 17:14] LABS: Glucose Point of Care 113 mg/dL (70-110)
--- NOTE | 2020-07-26 18:05 | PM.PN ---
Subjective Subjective: Interval history: Still abdominal discomfort. Nauseated, episode of vomiting earlier today, however, he is maintaining NG tube and has been tolerating low rate tube feeds. Today worsening of allergic rhinitis symptoms. Vitals/I&O/Wt Last Vital Signs Temp 98.5 F 07/26/20 15:42 Pulse 112 H 07/26/20 15:42 Resp 18 07/26/20 15:42 BP 145/87 07/26/20 15:42 Pulse Ox 92 07/26/20 15:42 07/26/20 07/26/20 07/26/20 06:59 14:59 22:59 Intake Total 1105 / 2903.333 120 / 120 903.333 / 1023.333 Output Total 400 / 1900 800 / 800 650 / 1450 Balance 705 / 1003.333 -680 / -680 253.333 / -426.667 Weight last 48 hrs Weight 81.76 kg Weight 81.42 kg Physical Exam Const: COMMON NORMALS: no acute distress, patient oriented x3 and alert GENERAL APPEARANCE: anxious NUTRITIONAL APPEARANCE: obese ORIENTATION/CONSCIOUSNESS: Yes awake OTHER: Awake, alert, sitting up in bed. NG tube in place. Receiving tube feedings. HENMT: COMMON NORMALS: oropharynx normal Neck/C-Spine: COMMON NORMALS: no JVD Resp: COMMON NORMALS: normal respiratory effort and clear to auscultation bilaterally AUSCULTATION: clear to auscultation bilaterally Cardio: COMMON NORMALS: no JVD, regular rhythm, S1 normal heart sound present, S2 normal heart sound present and No murmurs present (Cardio) RHYTHM: regular rhythm HEART SOUNDS: S1 normal heart sound present and S2 normal heart sound present GI: COMMON NORMALS: Normal to inspection, nondistended, normoactive bowel sounds present and Soft to palpation PALPATION: Yes Soft to palpation and Yes Tenderness to palpation present (GI) (Tender across upper abdomen and into the right upper quadrant. Also tender right lower chest over the lower ribs reproducible on palpation.) Extremity: COMMON NORMALS: no joint enlargement and no pedal edema Neuro: COMMON NORMALS: patient oriented x3 and moves all extremities SENSORIUM/ORIENTATION: Yes alert Skin: COMMON NORMALS: no rashes or lesions noted GENERAL SKIN EXAM: no rashes or lesions noted Data : 07/26/20 05:11 10/24/20 05:11 A&P Assessment and plan (1) Pancreatitis, acute: Assessed by CT abdomen pelvis x-ray due to persistent pancreatitis symptoms. No acute change. Lipase is somewhat better today. Still edematous pancreas suggestive of ongoing pancreatitis. No finding of necrosis/abscess. Discussed findings with her. She is agreeable to continue supportive care at this time. Trials of p.o. liquids if appetite improves. Tube feeds. She reports prior episodes of pancreatitis. Asked if she had recently seen gastroenterology, she says she had been referred, but did not follow-up with them. Encouraged her to make sure to follow-up with gastroenterology specialist after discharge due to episodes of pancreatitis, will discussed with her with episodes of chronic pain and, sometimes sternal treatment may be offered in case chronic pain persists due to chronic pancreatitis. She verbalized understanding. With a history of chronic pancreatitis with episodes in [address] scan of the abdomen pelvis on admission shows mild stranding around the entire pancreas with pancreatic tail showing a low-attenuation 11 mm nodule, this was discussed with patient and recommended to have continued monitoring of this. Hold home Invokana, this could be contributing to her pancreatitis Status: Acute (2) Epilepsy: Seizure precautions On Brivaracetam 25mg daily, reports she has not taken her medication in 3 days IV Keppra until reestablishes oral intake Status: Acute (3) Essential (primary) hypertension: As needed labetalol Status: Acute (4) Diabetes: Hemoglobin A1c is 6 Hold home Invokana as this can cause pancreatitis Sliding scale insulin as needed Status: Acute (5) Chronic pain of lower extremity, bilateral: IV pain medication PRN Status: Acute (6) Bed bug bite: Possible bedbugs. Noticed bedbug after feeling a bite. Insect was caught and trapped in a sample jar. Looks like a bedbug. She is not sure whether it is hers. States that at home she has not seen any, although understands that she may not have seen them there nocturnal, but also says has not really had any bites. They had just moved with her to a new place. She had a roommate, although her roommate was recently relocated from a different room in the hospital, and I am told does not have known bedbugs. Discussed with her would benefit from assessment at home by a specialist/lap welder to see if in fact there may be some bedbugs they may not be aware of. She states will discuss with her . Has been moved to a different room and for now placed in isolation empirically. Status: Acute Additional A&P Information Dysuria: Reported some dysuria. UA not suggestive of UTI. Dehydration: Has not established oral intake. Continue with IV fluid DVT ppx: Lovenox Diet: NPO liquid trials as tolerating. Tube feeding. Code status: Full code Attestations Medical Necessity Statement*: Continue admission for assessment management of acute pancreatitis, inability to tolerate oral intake. Coding Level of Care Code Acute Orthotic Aide for [facility] Diagnoses Pancreatitis, acute K85.90 Epilepsy G40.909 Essential (primary) hypertension I10 Diabetes E11.9 Chronic pain of lower extremity, bilateral M79.604; M79.605; G89.29 Bed bug bite [id number].XXXA
[2020-07-26 20:19] LABS: Glucose Point of Care 119 mg/dL (70-110)
[2020-07-27] VITALS (22 sets, daily range): BP systolic 132–175; BP diastolic 71–97; PULSE 101–116; RESP 15–20; TEMP 36.6–37.2; O2SAT 91–94
[2020-07-27] MEDS: ondansetron 2 mg/ML SDV 2 mL 4 MG IVP ×4 (00:06→21:36)
[2020-07-27] MEDS: ALPRAZolam 0.25 mg Tablet PO ×3 (00:06→17:08)
[2020-07-27] MEDS: HYDROmorphone 1 mg/mL INJ 1 mL 0.5 MG IVP ×11 (00:28→21:36)
[2020-07-27] MEDS: dextrose 5%-lactated ringers 1,000 ML 100 ML IV ×2 (01:12→10:53)
[2020-07-27] MEDS: promethazine 25 mg/mL SDV 1 mL 12.5 MG IM ×2 (05:15→10:54)
--- NOTE | 2020-07-27 05:28 | PC.NURSE ---
Patient complain of how she went to the commode, that her foot right foot popped and she felt pain in her foot now. There may be some discoloration and slight swelling at the sight that the patient insisted. Would need a second opinion. Patient would also like to discuss with the doctor about the pros and con of switching the promethazine from IM to IVP, due to the amount of shots that the patient has been receiving.
[2020-07-27 05:39] LABS: Basophils # 0.1 10^3/uL (0.0-0.1); Basophils % 1.1 %; Eosinophils # 0.5 10^3/uL (0.0-0.8); Eosinophils % 8.7 %; Hematocrit 41.4 % (37.0-47.0); Hemoglobin 12.5 g/dL (11.5-15.3); Lymphocytes # 2.7 10^3/uL (0.8-4.8); Lymphocytes % 44.7 %; Mean Corpuscular HGB Conc 30.2 g/dL (30.0-36.0); Mean Corpuscular Hemoglobin 28.7 pg (28.0-34.0); Mean Platelet Volume 12.1 fL (7.4-10.4); Monocytes # 0.8 10^3/uL (0.2-0.9); Monocytes % 13.1 %; Neutrophils # 1.95 10^3/uL (1.8-7.7); Neutrophils % 32.1 %; Nucleated Red Blood Cells % 0 %; Platelet Count 261 10^3/cmm (130-400); Red Blood Count 4.36 10^6/uL (4.1-5.3); Red Cell Distribution Width 14.3 % (12.1-15.1); White Blood Count 6.1 10^3/uL (4.0-10.0)
--- NOTE | 2020-07-27 05:39 | NUR.SHIFT ---
Patient has slept longer tonight than what she had the past few nights that this nurse has had her. Pain and nausea had been well controlled. The patient has gone further without nausea medication than the previous nights.
[2020-07-27 06:13] LABS: Alanine Aminotransferase 21 U/L (0-33); Albumin Level 2.7 g/dL (3.5-5.2); Alkaline Phosphatase 92 IU/L (35-105); Blood Urea Nitrogen 2 mg/dL (6-20); Calcium 8.7 mg/dL (8.5-10.5); Carbon Dioxide 26 mmol/L (22-29); Chloride 106 mmol/L (98-107); Glomerular Filtration Rate 176.8 mL/min (90-130); Glucose 120 mg/dL (65-115); Osmolality Calculated 291 mOsm/kg (285-295); Sodium 142 mmol/L (136-145); Total Bilirubin 0.7 mg/dL (0.15-1.2); Total Protein 5.7 g/dL (6.6-8.7)
[2020-07-27 06:16] LABS: Anion Gap 13.8 (5-19); Aspartate Amino Transferase 25 U/L (0-32); Potassium 3.8 mmol/L (3.5-5.1)
[2020-07-27 06:38] LABS: Glucose Point of Care 104 mg/dL (70-110)
[2020-07-27 07:06] LABS: Lipase 62 U/L (13-60)
[2020-07-27] MEDS: fexofenadine 60 mg Tablet PO ×2 (08:21→17:05)
[2020-07-27] MEDS: labetalol 5 mg/mL SDV 20mL 10 MG IVP (08:21)
[2020-07-27 08:40] LABS: SARS Covid-2 Antigen Negative (Negative)
--- NOTE | 2020-07-27 09:18 | PC.NURSE ---
Dr. Patton notified of patient report of injuring right foot last night during a transfer to bedside commode, no edema, no redness noted but patient reports pain to that foot.
[2020-07-27 10:47] LABS: Glucose Point of Care 129 mg/dL (70-110)
[2020-07-27] MEDS: enoxaparin 40 mg/0.4 mL Syringe SUBCUT (10:55)
--- NOTE | 2020-07-27 11:03 | CTR_ITS ---
PROCEDURE INFORMATION: Exam: CT Right Lower Extremity Without Contrast, Foot Exam date and time: 07/27/2020 11:34 AM Age: 40 years old Clinical indication: Pain; Foot; Right; Additional info: Pain. Localized swelling after stepped on it and felt something pop. TECHNIQUE: Imaging protocol: CT of the Right lower extremity without contrast was performed. Exam focused on the foot. Radiation optimization: All CT scans at this facility use at least one of these dose optimization techniques: automated exposure control; mA and/or kV adjustment per patient size (includes targeted exams where dose is matched to clinical indication); or iterative reconstruction. COMPARISON: No relevant prior studies available. RADIATION DOSE METRICS: Total DLP (mGy-cm): 143.83 FINDINGS: Bones/joints: Mild degenerative changes are present in the tarsal joints with mild joint space narrowing. No fracture, dislocation or other acute bone or joint abnormalities are seen in the right foot. No destructive or erosive bony changes are seen. Soft tissues: There is subcutaneous edema over the medial and plantar aspect of the foot. No localized fluid collections are seen.. CT/CT foot RT wo con* [id number] IMPRESSION: Mild degenerative changes. No acute bony abnormality. Radiation Dose CTDIVOL = (mGy): DLP = 143.83 (mGy-cm)
--- NOTE | 2020-07-27 11:05 | P.PN_ITS ---
Subjective Subjective: Interval history: Yesterday had an episode of vomiting after trying some broth. Says has been taking small sips of ice water. Overnight she try to get up to the commode and feels somehow stepped wrong on her right foot, felt something pop, and has been having swelling and extreme tenderness on the medial aspect of the dorsal right foot. There is no swelling of the ankle. There is no bruise. No erythema. Vitals/I&O/Wt Last Vital Signs Temp 98.3 F 07/27/20 08:03 Pulse 110 H 07/27/20 08:03 Resp 16 07/27/20 10:53 BP 159/79 07/27/20 08:03 Pulse Ox 93 07/27/20 08:03 07/26/20 07/27/20 07/27/20 22:59 06:59 14:59 Intake Total 963.333 / 9558.046 7399 / 2188.333 968.333 / 968.333 Output Total 1750 / 2550 300 / 2850 600 / 600 Balance -786.667 / -1361.667 700 / -661.667 368.333 / 368.333 Weight last 48 hrs Weight 80.739 kg Weight 81.76 kg Physical Exam Const: COMMON NORMALS: no acute distress, patient oriented x3 and alert GENERAL APPEARANCE: anxious NUTRITIONAL APPEARANCE: obese ORIENTATION/CONSCIOUSNESS: Yes awake OTHER: Awake, alert, sitting up in bed. NG tube in place. Receiving tube feedings. HENMT: COMMON NORMALS: oropharynx normal Neck/C-Spine: COMMON NORMALS: no JVD Resp: COMMON NORMALS: normal respiratory effort and clear to auscultation bilaterally AUSCULTATION: clear to auscultation bilaterally Cardio: COMMON NORMALS: no JVD, regular rhythm, S1 normal heart sound present, S2 normal heart sound present and No murmurs present (Cardio) RHYTHM: regular rhythm HEART SOUNDS: S1 normal heart sound present and S2 normal heart sound present GI: COMMON NORMALS: Normal to inspection, nondistended, normoactive bowel sounds present and Soft to palpation PALPATION: Yes Soft to palpation and Yes Tenderness to palpation present (GI) (Tender across upper abdomen and into the right upper quadrant. Also tender right lower chest over the lower ribs reproducible on palpation.) Extremity: COMMON NORMALS: no joint enlargement and no pedal edema OTHER: There is some swelling on the medial dorsal aspect of the right foot. Tender to palpation. Tender on passive range of motion. No ankle swelling. There is no localized erythema. No bruising. Neuro: COMMON NORMALS: patient oriented x3 and moves all extremities SENSORIUM/ORIENTATION: Yes alert Skin: COMMON NORMALS: no rashes or lesions noted GENERAL SKIN EXAM: no rashes or lesions noted Data : 07/27/20 05:14 07/27/20 05:14 A&P Assessment and plan (1) Pancreatitis, acute: Yesterday again had episode of vomiting after trying some broth by mouth. Lipase again up little bit minimally to 62. Persistent pain. Nodule in the tail of pancreas, some persistent edema seen on prior CT. Discussed with her we will go ahead and order MRCP for additional assessment. She is agreeable with the plan. Still edematous pancreas suggestive of ongoing pancreatitis. No finding of necrosis/abscess on CT. Discussed findings with her. Continue supportive care. Trials of p.o. liquids if appetite improves. Tube trophic feeds. She reports prior episodes of pancreatitis. Asked if she had recently seen gastroenterology, she says she had been referred, but did not follow-up with them. Encouraged her to make sure to follow-up with gastroenterology specialist after discharge due to episodes of pancreatitis, will discussed with her with episodes of chronic pain and, sometimes sternal treatment may be offered in case chronic pain persists due to chronic pancreatitis. She verbalized understanding. With a history of chronic pancreatitis with episodes in [address] scan of the abdomen pelvis on admission shows mild stranding around the entire pancreas with pancreatic tail showing a low-attenuation 11 mm nodule, this was discussed with patient and recommended to have continued monitoring of this. Hold home Invokana, this could be contributing to her pancreatitis Status: Acute (2) Foot pain: She was getting up to the commode overnight and says somehow stepped wrong on her foot. [place] something pop in the medial dorsal aspect. Developed swelling. There is no erythema, no hematoma or ecchymosis appearance. He is tender on palpation, as well as with passive range of motion. Says the pain is very bad. Agreeable to image with CT additional assessment of foot injury. Fall precautions. Status: Acute (3) Epilepsy: Seizure precautions On Brivaracetam 25mg daily, reports she has not taken her medication in 3 days IV Keppra until reestablishes oral intake Status: Acute (4) Essential (primary) hypertension: As needed labetalol Status: Acute (5) Diabetes: Hemoglobin A1c is 6 Hold home Invokana as this can cause pancreatitis Sliding scale insulin as needed Status: Acute (6) Chronic pain of lower extremity, bilateral: IV pain medication PRN Status: Acute (7) Bed bug bite: Possible bedbugs. Noticed bedbug after feeling a bite. Insect was caught and trapped in a sample jar. Looks like a bedbug. She is not sure whether it is hers. States that at home she has not seen any, although understands that she may not have seen them there nocturnal, but also says has not really had any bites. They had just moved with her to a [facility] place. She had a roommate, although her roommate was recently relocated from a different room in the hospital, and I am told does not have known bedbugs. Discussed with her would benefit from assessment at home by a specialist/cat scan technologist to see if in fact there may be some bedbugs they may not be aware of. She states will discuss with her . Has been moved to a different room and for now placed in isolation empirically. Status: Acute Additional A&P Information Dysuria: Reported some dysuria. UA not suggestive of UTI. Dehydration: Has not established oral intake. Continue with IV fluid DVT ppx: Lovenox Diet: NPO liquid trials as tolerating. Tube feeding. Code status: Full code Attestations Medical Necessity Statement*: Continue admission for management of acute pancreatitis, assessment of foot injury. Coding Level of Care Code Acute Mechanic Sound Technician for [facility] Diagnoses Pancreatitis, acute K85.90 Foot pain M79.673 Epilepsy G40.909 Essential (primary) hypertension I10 Diabetes E11.9 Chronic pain of lower extremity, bilateral M79.604; M79.605; G89.29 Bed bug bite [id number].XXXA
--- NOTE | 2020-07-27 11:25 | PC.NURSE ---
Dr. Patton notified of patient request to change phenergan to another antiemetic that will not require IM administration, physician will place new orders.
[2020-07-27] MEDS: metoclopramide 5 mg/mL SDV 2 mL IVP ×2 (13:03→19:42)
--- NOTE | 2020-07-27 13:51 | PC.NURSE ---
Dr. Patton notified of patient request for ice pack, new orders received to place ice pack. ice pack placed per physician orders to right foot.
[2020-07-27 16:35] LABS: Glucose Point of Care 103 mg/dL (70-110)
[2020-07-27 20:43] LABS: Glucose Point of Care 94 mg/dL (70-110)
[2020-07-28] VITALS (17 sets, daily range): BP systolic 104–198; BP diastolic 61–96; PULSE 99–121; RESP 16–20; TEMP 36.7–37.6; O2SAT 91–94
[2020-07-28] MEDS: HYDROmorphone 1 mg/mL INJ 1 mL 0.5 MG IVP ×11 (00:06→22:08)
[2020-07-28] MEDS: ALPRAZolam 0.25 mg Tablet PO ×3 (01:43→20:18)
[2020-07-28] MEDS: metoclopramide 5 mg/mL SDV 2 mL IVP ×4 (01:51→22:08)
[2020-07-28] MEDS: acetaminophen 325 mg Tablet 650 MG PO ×2 (03:02→22:24)
[2020-07-28] MEDS: ondansetron 2 mg/ML SDV 2 mL 4 MG IVP ×3 (04:02→20:10)
[2020-07-28 05:51] LABS: Basophils # 0.1 10^3/uL (0.0-0.1); Basophils % 0.9 %; Eosinophils # 0.4 10^3/uL (0.0-0.8); Eosinophils % 5.1 %; Hematocrit 41.9 % (37.0-47.0); Hemoglobin 12.9 g/dL (11.5-15.3); Lymphocytes % 34.9 %; Mean Corpuscular HGB Conc 30.8 g/dL (30.0-36.0); Mean Corpuscular Volume 94.2 fL (81-99); Mean Platelet Volume 12.4 fL (7.4-10.4); Monocytes # 1.1 10^3/uL (0.2-0.9); Monocytes % 12.8 %; Neutrophils # 3.95 10^3/uL (1.8-7.7); Neutrophils % 46.1 %; Nucleated Red Blood Cells % 0 %; Platelet Count 298 10^3/cmm (130-400); Red Blood Count 4.45 10^6/uL (4.1-5.3); Red Cell Distribution Width 14.2 % (12.1-15.1); White Blood Count 8.6 10^3/uL (4.0-10.0)
[2020-07-28] MEDS: dextrose 5%-lactated ringers 1,000 ML 100 ML IV (06:02)
[2020-07-28 06:07] LABS: Alanine Aminotransferase 21 U/L (0-33); Albumin Level 2.9 g/dL (3.5-5.2); Alkaline Phosphatase 100 IU/L (35-105); Anion Gap 11.8 (5-19); Aspartate Amino Transferase 21 U/L (0-32); Blood Urea Nitrogen 3 mg/dL (6-20); Calcium 9.1 mg/dL (8.5-10.5); Carbon Dioxide 26 mmol/L (22-29); Chloride 102 mmol/L (98-107); Globulin 3.3 g/dL (1.3-4.6); Glomerular Filtration Rate 176.8 mL/min (90-130); Glucose 110 mg/dL (65-115); Osmolality Calculated 279 mOsm/kg (285-295); Potassium 3.8 mmol/L (3.5-5.1); Sodium 136 mmol/L (136-145); Total Bilirubin 0.7 mg/dL (0.15-1.2); Total Protein 6.2 g/dL (6.6-8.7)
[2020-07-28 06:34] LABS: Glucose Point of Care 102 mg/dL (70-110)
[2020-07-28 06:46] LABS: Lipase 42 U/L (13-60)
--- NOTE | 2020-07-28 10:20 | PC.SOCIAL ---
IMM Updated Page 2 of IMM updated and given to patient. Initialed, dated, and timed and placed back in chart.
--- NOTE | 2020-07-28 11:04 | MR_ITS ---
WS: [id number] MRCP (MAGNETIC RESONANCE CHOLANGIOPANCREATOGRAPHY) HISTORY: Persistent pancreatitis, pancreatic tail nodule COMPARISON: 12/10/[address] 07/25/2020 TECHNIQUE: Multiple sequences are performed to evaluate the intra and extrahepatic ducts. No intrahepatic or extrahepatic duct dilatation. Common bile duct measures approximately 4 mm through out its course. Pancreatic duct is not dilated. Visualized liver is normal size with mild areas of he patic steatosis. No mass identified. The pancreas is prominent but appropriate for the patient's age. There is no mass or cyst. No pseudocyst. No definite evidence for acute pancreatitis. Lobulated T2 bright mass associated with the LEFT adrenal gland measures 17 x 14 mm. This mass has ve ry slightly slowly increased in size since 2014. Increased signal on the T2 sequences and low on the T1 sequences. Favor this is probably a cyst. Not typical for an adenoma. MR/MR MRCP [id number] IMPRESSION: 1. Normal MRCP with no duct dilatation. 2. No pseudocyst. 3. No pancreatic mass identified by MRCP. 4. Lobulated cystic mass associated with the LEFT adrenal gland measures 17 x 14 mm. Atypical adenoma versus cyst.
[2020-07-28 11:27] LABS: Glucose Point of Care 109 mg/dL (70-110)
[2020-07-28] MEDS: enoxaparin 40 mg/0.4 mL Syringe SUBCUT (13:52)
[2020-07-28 17:33] LABS: Glucose Point of Care 104 mg/dL (70-110)
[2020-07-28] MEDS: pantoprazole 40 mg SDV IVP (17:48)
[2020-07-28] MEDS: metoprolol tartrate 1 mg/1 mL SDV 5 mL 2.5 MG IV ×2 (17:48→22:08)
[2020-07-28] MEDS: fexofenadine 60 mg Tablet PO (17:51)
--- NOTE | 2020-07-28 18:26 | PC.NURSE ---
Late MAR entry: Dilaudid 0.5mg given via IV at 15:15; unable to scan due to malfunctioning scanner. Unable to back chart this administration in the MAR due a dose given by charge nurse since that time.
--- NOTE | 2020-07-28 19:41 | PM.PN ---
Subjective Subjective: Interval history: Again had vomiting last night after trying some broth. Not tolerating food by mouth. Describes still having pain, although descriptions are somewhat more vague across the upper abdomen. Still having pain in the dorsal right foot with some swelling there. Has been elevating the foot, applying cold compress. Vitals/I&O/Wt Last Vital Signs Temp 99.7 F H 07/28/20 11:25 Pulse 118 H 07/28/20 13:36 Resp 18 07/28/20 17:49 BP 155/95 07/28/20 13:36 Pulse Ox 94 07/28/20 17:49 07/28/20 07/28/20 07/28/20 06:59 14:59 22:59 Intake Total 255 / 2478.333 105 / 105 30 / 135 Output Total 1100 / 2000 1300 / 1300 Balance -845 / 478.333 105 / 105 -1270 / -1165 Weight last 48 hrs Weight 82.1 kg Weight 80.739 kg Physical Exam Const: COMMON NORMALS: no acute distress, patient oriented x3 and alert GENERAL APPEARANCE: anxious NUTRITIONAL APPEARANCE: obese ORIENTATION/CONSCIOUSNESS: Yes awake OTHER: Awake, alert, sitting up in bed. NG tube in place. Receiving tube feedings. HENMT: COMMON NORMALS: oropharynx normal Neck/C-Spine: COMMON NORMALS: no JVD Resp: COMMON NORMALS: normal respiratory effort and clear to auscultation bilaterally AUSCULTATION: clear to auscultation bilaterally Cardio: COMMON NORMALS: no JVD, regular rhythm, S1 normal heart sound present, S2 normal heart sound present and No murmurs present (Cardio) RHYTHM: regular rhythm HEART SOUNDS: S1 normal heart sound present and S2 normal heart sound present GI: COMMON NORMALS: Normal to inspection, nondistended, normoactive bowel sounds present and Soft to palpation PALPATION: Yes Soft to palpation and Yes Tenderness to palpation present (GI) (Tender across upper abdomen and into the right upper quadrant. Also tender right lower chest over the lower ribs reproducible on palpation.) Extremity: COMMON NORMALS: no joint enlargement and no pedal edema OTHER: There is some unchanged swelling on the medial dorsal aspect of the right foot. Tender to palpation. Tender on passive range of motion. No ankle swelling. There is no localized erythema. No bruising. Neuro: COMMON NORMALS: patient oriented x3 and moves all extremities SENSORIUM/ORIENTATION: Yes alert Skin: COMMON NORMALS: no rashes or lesions noted GENERAL SKIN EXAM: no rashes or lesions noted Data : 07/28/20 04:50 07/28/20 04:50 Micro: Microbiology 07/28/20 18:25 Blood Culture - Preliminary Blood SPECIMEN COLLECTED 07/28/20 18:30 Blood Culture - Preliminary Blood SPECIMEN COLLECTED A&P Assessment and plan (1) Pancreatitis, acute: Still not tolerating oral diet. Again vomiting last night. Persistent abdominal pain. Continues with tube feeds. Requested MRCP for additional assessment after discussion with her. MRCP appears to show normal findings. Incidentally noted to lobulated cystic mass associated with left adrenal gland 17 x 14 mm, atypical adenoma versus cyst. Consider additional nonemergent evaluation. Start PPI every 12 hours empirically for possible gastritis. She is again having low-grade temperature 99.7 today. If symptoms persistent, consider additional evaluation by upper endoscopy. Continue supportive care at this time. NPO. Has been tolerating a low rate tube feeds. On repeat CT still edematous pancreas suggestive of ongoing pancreatitis, although MRCP does not show definitive evidence for ongoing pancreatitis. No finding of necrosis/abscess on CT. Discussed findings with her. Continue supportive care. Trials of p.o. liquids if appetite improves. She reports prior episodes of pancreatitis. Asked if she had recently seen gastroenterology, she says she had been referred, but did not follow-up with them. Encouraged her to make sure to follow-up with gastroenterology specialist after discharge due to episodes of pancreatitis, will discussed with her with episodes of chronic pain and, sometimes sternal treatment may be offered in case chronic pain persists due to chronic pancreatitis. She verbalized understanding. With a history of chronic pancreatitis with episodes in [address] scan of the abdomen pelvis on admission shows mild stranding around the entire pancreas with pancreatic tail showing a low-attenuation 11 mm nodule, this was discussed with patient and recommended to have continued monitoring of this. Hold home Invokana, this could be contributing to her pancreatitis Status: Acute (2) Foot pain: She was getting up to the commode overnight 07/27 and says somehow stepped wrong on her foot. [place] something pop in the medial dorsal aspect. Developed swelling. There is no erythema, no hematoma or ecchymosis appearance. He is tender on palpation, as well as with passive range of motion. Says the pain is persistent. CT right foot show some soft tissue edema, no fracture, no fluid collection. She has been having some low-grade fevers. Obtained blood culture, although does not appear to have any findings of cellulitis externally. If fevers persist, consider additional assessment by MRI. Fall precautions. Rest, elevate, cold compress. Status: Acute (3) Epilepsy: Seizure precautions On Brivaracetam 25mg daily, reports she has not taken her medication in 3 days IV Keppra until reestablishes oral intake Status: Acute (4) Essential (primary) hypertension: As needed labetalol Status: Acute (5) Diabetes: Hemoglobin A1c is 6 Hold home Invokana as this can cause pancreatitis Sliding scale insulin as needed Status: Acute (6) Chronic pain of lower extremity, bilateral: IV pain medication PRN Status: Acute (7) Bed bug bite: Possible bedbugs. Noticed bedbug after feeling a bite. Insect was caught and trapped in a sample jar. Looks like a bedbug. She is not sure whether it is hers. States that at home she has not seen any, although understands that she may not have seen them there nocturnal, but also says has not really had any bites. They had just moved with her to a new place. She had a roommate, although her roommate was recently relocated from a different room in the hospital, and I am told does not have known bedbugs. Discussed with her would benefit from assessment at home by a specialist/java j2ee software engineer to see if in fact there may be some bedbugs they may not be aware of. She states will discuss with her . Has been moved to a different room and for now placed in isolation empirically. Status: Acute Additional A&P Information Dysuria: Reported some dysuria. UA not suggestive of UTI. Dehydration: Has not established oral intake. Continue with IV fluid. Nasoenteric tube water flushes. DVT ppx: Lovenox Diet: NPO liquid trials as tolerating. Tube feeding. Code status: Full code Attestations Medical Necessity Statement*: Continue admission for assessment management of acute pancreatitis, intolerance of oral intake of food or drink, abdominal pain, possible gastritis. Coding Level of Care Code Acute Care Associate for [facility] Diagnoses Pancreatitis, acute K85.90 Foot pain M79.673 Epilepsy G40.909 Essential (primary) hypertension I10 Diabetes E11.9 Chronic pain of lower extremity, bilateral M79.604; M79.605; G89.29 Bed bug bite [id number].XXXA
[2020-07-28 21:56] LABS: Glucose Point of Care 103 mg/dL (70-110)
[2020-07-29] VITALS (9 sets, daily range): BP systolic 146–156; BP diastolic 81–99; PULSE 99–112; RESP 16–18; TEMP 36.4–36.7; O2SAT 92–95; BMI 35.3
[2020-07-29] MEDS: HYDROmorphone 1 mg/mL INJ 1 mL 0.5 MG IVP ×4 (00:14→08:51)
[2020-07-29] MEDS: ondansetron 2 mg/ML SDV 2 mL 4 MG IVP ×2 (02:20→12:40)
[2020-07-29] MEDS: metoprolol tartrate 1 mg/1 mL SDV 5 mL 2.5 MG IV ×3 (02:21→08:53)
[2020-07-29] MEDS: metoclopramide 5 mg/mL SDV 2 mL IVP ×2 (04:37→10:31)
[2020-07-29] MEDS: acetaminophen 325 mg Tablet 650 MG PO (04:39)
[2020-07-29] MEDS: ALPRAZolam 0.25 mg Tablet PO ×2 (04:39→13:01)
[2020-07-29] MEDS: pantoprazole 40 mg SDV IVP (04:40)
[2020-07-29 05:39] LABS: Basophils # 0.1 10^3/uL (0.0-0.1); Basophils % 1.2 %; Eosinophils # 0.3 10^3/uL (0.0-0.8); Eosinophils % 4.2 %; Hematocrit 43.2 % (37.0-47.0); Hemoglobin 13.3 g/dL (11.5-15.3); Lymphocytes # 3.2 10^3/uL (0.8-4.8); Lymphocytes % 46.1 %; Mean Corpuscular HGB Conc 30.8 g/dL (30.0-36.0); Mean Corpuscular Hemoglobin 28.6 pg (28.0-34.0); Mean Corpuscular Volume 92.9 fL (81-99); Mean Platelet Volume 12.2 fL (7.4-10.4); Monocytes % 14.7 %; Neutrophils # 2.29 10^3/uL (1.8-7.7); Neutrophils % 33.5 %; Nucleated Red Blood Cells % 0 %; Platelet Count 327 10^3/cmm (130-400); Red Blood Count 4.65 10^6/uL (4.1-5.3); Red Cell Distribution Width 14.3 % (12.1-15.1); White Blood Count 6.9 10^3/uL (4.0-10.0)
[2020-07-29 06:12] LABS: Alanine Aminotransferase 20 U/L (0-33); Albumin Level 2.5 g/dL (3.5-5.2); Alkaline Phosphatase 104 IU/L (35-105); Aspartate Amino Transferase 21 U/L (0-32); Blood Urea Nitrogen 3 mg/dL (6-20); Calcium 9.1 mg/dL (8.5-10.5); Carbon Dioxide 26 mmol/L (22-29); Chloride 105 mmol/L (98-107); Globulin 3.6 g/dL (1.3-4.6); Glomerular Filtration Rate 176.8 mL/min (90-130); Glucose 171 mg/dL (65-115); Osmolality Calculated 289 mOsm/kg (285-295); Sodium 139 mmol/L (136-145); Total Bilirubin 0.7 mg/dL (0.15-1.2); Total Protein 6.1 g/dL (6.6-8.7)
[2020-07-29 06:13] LABS: Lipase 45 U/L (13-60)
[2020-07-29 06:47] LABS: Glucose Point of Care 124 mg/dL (70-110)
[2020-07-29] MEDS: dextrose 5%-lactated ringers 1,000 ML 100 ML IV (08:49)
[2020-07-29] MEDS: fexofenadine 60 mg Tablet PO (08:49)
[2020-07-29] MEDS: morphine ER (12 HR) 30 mg tablet PO (11:47)
[2020-07-29 12:47] LABS: Glucose Point of Care 141 mg/dL (70-110)
[2020-07-29] MEDS: fluticasone nasal spray 16gm Btl 2 SPRAY NASAL (12:49)
--- NOTE | 2020-07-29 13:23 | PC.NURSE ---
PATIENT LEAVING AMA THIS AM, THIS NURSE HAD A NOTE THAT PATIENT'S WAS CALLING ADMINISTRATION DUE TO PATIENT BEING FRUSTRATED WITH HER CARE. THIS NURSE THEN WENT TO TALK WITH PATIENT. PATIENT WAS FRUSTRATED DUE TO THE DOSE AND FREQUENCY CHANGE OF HER DILAUDID. DR. RICE EXPLAINED THIS TO THE PATIENT ALONG WITH MRI RESULTS. THIS NURSE DISCUSSED THAT THESE CHANGES ARE TYPICAL AND THAT DR. RICE WAS TRYING TO EASE PATIENT BACK ON ORAL PAIN MEDICATIONS THAT SHE TAKES AT HOME SO WE COULD PREPARE FOR DISCHARGE. TJ FOLDER OPERATOR REFRIGERATION PERSON WELL SALO CROCKER RN WERE AT PATIENT BEDSIDE WELL. DR. RICE ORDERED PATIENT'S HOME DOSE OF ORAL MORPHINE AND THIS NURSE ADMINISTERED THIS MEDICATION. DR. RICE CALLED PATIENT'S AND EXLPLAINED HER MRI RESULTS WELL THE REASON FOR HER MEDICATION CHANGE. DR. RICE WENT TO PATIENT'S ROOM AND EXPLAINED ALL OF HER CARE AND PATIENT STATED SHE JUST WANTED TO GO HOME. PATIENT WAS THEN GIVEN AN AMA FORM FROM PATY CHRISTENSEN. DR. RICE NOTIFIED WELL SALO CROCKER RN.
--- NOTE | 2020-07-29 13:59 | PM.PN ---
Subjective Subjective: Interval history: No acute events overnight. Patient is tolerating tube feeds through NG tube well at 20 cc/h. She complains of nausea after having broth but is able to tolerate everything else in clear liquid diet. She is complaining of epigastric pain along with some nausea and pain in her right foot. We discussed in detail regarding the results of her MRCP done last night along with the fact that her symptoms are most likely because of acute on chronic pancreatitis for which she needs to be advanced on diet gradually. Also discussed that the fact that patient is able to tolerate NG tube feeds well means she is ready to be transitioned over to liquid diet gradually. We did discuss that unfortunately because of chronic pancreatitis she will have epigastric pain. Also discussed that we will be coming down on pain medications gradually now because sometimes excessive pain medications can also cause rebound pain. Medications: Reviewed: Yes Vitals/I&O/Wt Last Vital Signs Temp 98.1 F 07/29/20 12:00 Pulse 112 H 07/29/20 12:00 Resp 18 07/29/20 12:00 BP 156/99 07/29/20 12:00 Pulse Ox 95 07/29/20 08:51 07/28/20 07/29/20 07/29/20 22:59 06:59 14:59 Intake Total 1150 / 1255 195 / 1450 Output Total 2100 / 2100 900 / 3000 600 / 600 Balance -950 / -845 -705 / -1550 -600 / -600 Weight last 48 hrs Weight 82.1 kg Weight 82.1 kg Physical Exam Narrative: EXAM NARRATIVE: General: No acute distress, AO x3, NG tube present in the right nostril HEENT: PERRLA, pupils bilaterally equal and reactive Chest: Normal vesicular breath sounds, no added sounds, equal good air entry bilaterally CVS: S1-S2 regular, no murmurs, no tachycardia, no gallops, no rubs Abdomen: Soft, guarding in epigastric area, no rebound tenderness, Everett's negative, no organomegaly, bowel sounds present Neuro: No focal deficits, no facial deformity, AO x3, power 5/5 in all limbs Data : 07/29/20 05:11 07/29/20 05:11 Micro: Microbiology 07/28/20 18:25 Blood Culture - Preliminary Blood SPECIMEN COLLECTED 07/28/20 18:30 Blood Culture - Preliminary Blood SPECIMEN COLLECTED A&P Assessment and plan (1) Pancreatitis, acute: Patient is tolerating tube feeds well. NG tube in stomach. She is tolerating clear liquid diet other than the broth. Repeat abdominal CT scan and MRCP results appreciated and discussed in detail with the patient. Incidentally noted to lobulated cystic mass associated with left adrenal gland 17 x 14 mm, atypical adenoma versus cyst. Consider additional nonemergent evaluation. Case discussed with Dr. Pulido from surgery. Plan is to clamp the NG tube and start patient on full liquid diet. Will remove NG tube if patient is able to tolerate the liquid diet well in next 24 hours. Patient will most likely require very gradual advancement of diet going forward. Also discussed with Dr. Pulido regarding potential need of EGD. He states if patient is not tolerating a liquid diet can plan to do at that point but at this point there is no need. Continue with Protonix. Will make Reglan standing than as needed. She reports prior episodes of pancreatitis. Asked if she had recently seen gastroenterology, she says she had been referred, but did not follow-up with them. Encouraged her to make sure to follow-up with gastroenterology specialist after discharge due to episodes of pancreatitis, will discussed with her with episodes of chronic pain and, sometimes sternal treatment may be offered in case chronic pain persists due to chronic pancreatitis. She verbalized understanding. With a history of chronic pancreatitis with episodes in [address] scan of the abdomen pelvis on admission shows mild stranding around the entire pancreas with pancreatic tail showing a low-attenuation 11 mm nodule, this was discussed with patient and recommended to have continued monitoring of this. Hold home Invokana, this could be contributing to her pancreatitis. Change Dilaudid to 0.5 mg every 8 hours as needed from every 2 hours as needed. Start patient on home dose of morphine 30 mg every 12 hourly. Also discussed with her that her symptoms are most likely because of a combination of acute on chronic pancreatitis along with gastroparesis because of longstanding diabetes. Patient verbalized understanding. Status: Acute (2) Foot pain: She was getting up to the commode overnight 07/27 and says somehow stepped wrong on her foot. [place] something pop in the medial dorsal aspect. Developed swelling. There is no erythema, no hematoma or ecchymosis appearance. He is tender on palpation, as well as with passive range of motion. Says the pain is persistent. CT right foot show some soft tissue edema, no fracture, no fluid collection. She has been having some low-grade fevers. Obtained blood culture, although does not appear to have any findings of cellulitis externally. If fevers persist, consider additional assessment by MRI. Fall precautions. Rest, elevate, cold compress. Status: Acute (3) Epilepsy: Seizure precautions On Brivaracetam 25mg daily, reports she has not taken her medication in 3 days IV Keppra until reestablishes oral intake Status: Acute (4) Essential (primary) hypertension: As needed labetalol Status: Acute (5) Diabetes: Hemoglobin A1c is 6 Hold home Invokana as this can cause pancreatitis Sliding scale insulin as needed Status: Acute (6) Chronic pain of lower extremity, bilateral: IV pain medication PRN Status: Acute (7) Bed bug bite: Possible bedbugs. Noticed bedbug after feeling a bite. Insect was caught and trapped in a sample jar. Looks like a bedbug. She is not sure whether it is hers. States that at home she has not seen any, although understands that she may not have seen them there nocturnal, but also says has not really had any bites. They had just moved with her to a new place. She had a roommate, although her roommate was recently relocated from a different room in the hospital, and I am told does not have known bedbugs. Discussed with her would benefit from assessment at home by a specialist/upper cutter out to see if in fact there may be some bedbugs they may not be aware of. She states will discuss with her . Has been moved to a different room and for now placed in isolation empirically. Status: Acute Additional A&P Information Dysuria: Reported some dysuria. UA not suggestive of UTI. Dehydration: Has not established oral intake. Continue with IV fluid. Nasoenteric tube water flushes. DVT ppx: Lovenox Diet: NPO liquid trials as tolerating. Tube feeding. Code status: Full code Plan discussed in detail with both patient's Mr. Mares and patient herself at bedside for over 45 minutes. All the questions were answered. Also discussed the regarding the changes in the pain medications in detail. Discussed that patient would most likely need to follow-up at [facility] regarding her anxiety for medications as an outpatient. Discussed that she needs changes in her antidiabetic medications as an outpatient. Discussed the results of MRCP and CT scan of the foot. Attestations Medical Necessity Statement*: Patient needs further hospitalization for management of acute on chronic pancreatitis while we transition her from tube feeds to full liquid diet. Time Spent in Patient Care: Greater than 35 minutes (>than 50% of time spent in counselling and/or direct pt care on unit). Coding Level of Care Code Acute Health And Wellness Manager for Heather Roman Diagnoses Pancreatitis, acute K85.90 Foot pain M79.673 Epilepsy G40.909 Essential (primary) hypertension I10 Diabetes E11.9 Chronic pain of lower extremity, bilateral M79.604; M79.605; G89.29 Bed bug bite [id number].XXXA
--- NOTE | 2020-07-29 14:14 | PM.DCS ---
Discharge Providers Date of Admission: 07/17/20 10:31 Date of Discharge: July 29, 2020 Attending Provider at Admission: Mary Perez DO Attending Provider at Discharge: Car Haas MD Primary Care Provider: Yony Otero MD Diagnoses at Discharge Discharge Diagnosis (1) Pancreatitis, acute: Status: Acute (2) Foot pain: Status: Acute (3) Epilepsy: Status: Acute (4) Essential (primary) hypertension: Status: Acute (5) Diabetes: Status: Acute (6) Chronic pain of lower extremity, bilateral: Status: Acute (7) Bed bug bite: Status: Acute Reason for Visit Reason for Visit: throwing up/weight loss/back pain Hospital Course Discharge Summary: Please refer to my note from today for further details. Patient was admitted on July 17.Eleanor Ragland is a 40 year old female with a past medical history of diabetes, epilepsy, hypertension, tachycardia and history of chronic pancreatitis that presented to the emergency department for nausea vomiting and abdominal pain. She reports that she has been having worsening nausea vomiting over the past 3 weeks. States that she has been worse over the past 3 days. Reports epigastric abdominal pain. Stated that she was on Zonegran in the past and this gave her at her first episode of pancreatitis in 2014, had 2 episodes in 2014 followed by an episode in 2017. Stated that she had a feeding tube placed at that time. Patient stated that she has not been able to take any of her medications for 3 days. She was treated for acute on chronic pancreatitis in her diet was advanced gradually. He tolerated the tube feeds through NG tube in stomach form multiple number of days. She continued to have pain. Her case was discussed in detail with surgery. MRCP was done which ruled out gallstone pancreatitis. It was consistent with a possible pancreatic tail nodule which remained stable on multiple imaging and has been advised to follow-up as an 6 months. The plan was to clamp her NG tube and advance her to full liquid diet while coming down her pain medications. Plan was discussed in detail with both patient and patient's . Unfortunately patient was asking for more pain medications. It was discussed in detail with the patient that most likely patient symptoms are from acute on chronic pancreatitis along with diabetic gastroparesis. Concept of rebound pain due to excessive pain medications were discussed in detail with the patient. It was discussed with the patient that she requires further monitoring in hospital for slow advancement of diet. Did discuss that if patient goes home and she takes excessive pain medication she can have more nausea and vomiting. Unfortunately after multiple attempts patient was adamant about leaving AGAINST MEDICAL ADVICE. She has been advised to follow-up with her primary care provider on the set appointment. Physical Exam Narrative: EXAM NARRATIVE: General: No acute distress, AO x3, NG tube removed. HEENT: PERRLA, pupils bilaterally equal and reactive Chest: Normal vesicular breath sounds, no added sounds, equal good air entry bilaterally CVS: S1-S2 regular, no murmurs, no tachycardia, no gallops, no rubs Abdomen: Soft, guarding in epigastric area, no rebound tenderness, Everett's negative, no organomegaly, bowel sounds present Neuro: No focal deficits, no facial deformity, AO x3, power 5/5 in all limbs Discharge Data Data Completed and Pending: Completed Studies During Hospitalization Category Date Time Status CT abdomen pelvis w con* [id number] Rout ine Cat Scan 07/25/20 15:[address] abdomen pelvis w con* [id number] Urge nt Cat Scan 07/17/20 08:[address] foot RT wo con * [id number] Routine Cat Scan 07/27/20 11:03 Completed XR abdomen 1V* 74 018 Stat Exams 07/23/20 16:43 Completed XR abdomen 1V* 74 018 Stat Exams 07/23/20 23:26 Completed XR chest 1V neptali ble [id number] Routine Exams 07/18/20 09:35 Completed XR chest 1V neptali ble [id number] Routine Exams 07/18/20 10:18 Completed XR chest 1V neptali ble [id number] Routine Exams 07/18/20 12:28 Completed XR chest 1V neptali ble [id number] Routine Exams 07/24/20 11:24 Completed XR chest 1V neptali ble [id number] Stat Exams 07/17/20 08:47 Completed MR MRCP [id number] Rou effie MRI 07/28/20 11:04 Completed US abdomen limite d [id number] Routine Ultrasound 07/22/20 06:00 Completed Pending at discharge Category Date Time Status Blood Culture Sta t Lab 07/28/20 18:25 Results Clostridioides Di fficile PCR Routin e Lab 07/29/20 09:43 Ordered Enteric Bacterial Panel by PCR Rout ine Lab 07/29/20 09:43 Ordered Enteric Parasite Panel by PCR Routi ne Lab 07/29/20 09:43 Ordered Immunochemical Fe markel OCB Routine Lab 07/29/20 09:43 Ordered Lactoferrin Routi ne Lab 07/29/20 09:43 Ordered Labs from last 24 hours 07/29/20 07/29/20 07/29/20 12:15 06:30 05:11 WBC RBC Hgb Hct MCV MCH MCHC RDW Plt Count MPV Neut % (Auto) Lymph % (Auto) [place] % (Auto) Eos % (Auto) Baso % (Auto) Neut # (Auto) Lymph # (Auto) [place] # (Auto) Eos # (Auto) Baso # (Auto) Nucleated RBC % (a uto) Nucleated RBCs # Sodium Potassium Chloride Carbon Dioxide Anion Gap BUN Creatinine GFR Calculation Glucose POC Glucose 141 124 Calculated Osmolal ity Calcium Total Bilirubin AST ALT Alkaline Phosphata se Total Protein Albumin Globulin Lipase 45 07/29/20 07/29/20 07/28/20 05:11 05:11 21:23 WBC 6.9 RBC 4.65 Hgb 13.3 Hct 43.2 MCV 92.9 MCH 28.6 MCHC 30.8 RDW 14.3 Plt Count 327 MPV 12.2 H Neut % (Auto) 33.5 Lymph % (Auto) 46.1 [place] % (Auto) 14.7 Eos % (Auto) 4.2 Baso % (Auto) 1.2 Neut # (Auto) 2.29 Lymph # (Auto) 3.2 [place] # (Auto) 1.0 H Eos # (Auto) 0.3 Baso # (Auto) 0.1 Nucleated RBC % (a uto) 0 Nucleated RBCs # 0.0 Sodium 139 Potassium 4.0 Chloride 105 Carbon Dioxide 26 Anion Gap 12.0 BUN 3 L Creatinine 0.4 L GFR Calculation 176.8 H Glucose 171 H POC Glucose 103 Calculated Osmolal ity 289 Calcium 9.1 Total Bilirubin 0.7 AST 21 ALT 20 Alkaline Phosphata se 104 Total Protein 6.1 L Albumin 2.5 L Globulin 3.6 Lipase 07/28/20 17:10 WBC RBC Hgb Hct MCV MCH MCHC RDW Plt Count MPV Neut % (Auto) Lymph % (Auto) [place] % (Auto) Eos % (Auto) Baso % (Auto) Neut # (Auto) Lymph # (Auto) [place] # (Auto) Eos # (Auto) Baso # (Auto) Nucleated RBC % (a uto) Nucleated RBCs # Sodium Potassium Chloride Carbon Dioxide Anion Gap BUN Creatinine GFR Calculation Glucose POC Glucose 104 Calculated Osmolal ity Calcium Total Bilirubin AST ALT Alkaline Phosphata se Total Protein Albumin Globulin Lipase Vitals: Last Vital Signs Temp 98.1 F 07/29/20 12:00 Pulse 112 H 07/29/20 12:00 Resp 18 07/29/20 12:00 BP 156/99 07/29/20 12:00 Pulse Ox 95 07/29/20 08:51 Discharge Plan Discharge Patient Disposition: Left Against Medical Advice Condition: Stable Prescriptions: New Reglan 10 mg tablet 10 mg PO Q12H 7 Days Qty: 14 RF: 0 fluticasone propionate 50 mcg/actuation [place],Suspension 2 spray nasal BID Qty: 50 RF: 0 fexofenadine 60 mg Tablet 120 mg PO BID Qty: 10 RF: 0 Continued (DME) One touch ultra blue test strips See Rx Instructions .Route .MEDSUPPLY Qty: 1 RF: 3 Briviact 25 mg tablet 25 mg PO DAILY RF: 0 glimepiride 4 mg tablet 4 mg PO BID Qty: 60 RF: 8 morphine 30 mg tablet extended release 30 mg PO Q12H 30 Days Qty: 60 RF: 0 (DME) lancets [OneTouch Delica Lancets] 33 gauge misc See Rx Instructions .ROUTE .MEDSUPPLY Qty: 100 RF: 6 furosemide 20 mg tablet 40 mg PO BID Qty: 120 RF: 3 carvedilol 12.5 mg tablet 12.5 mg PO BID Qty: 180 RF: 0 tizanidine 4 mg tablet 8 mg PO TID PRN (Reason: muscle spasticity) 30 Days Qty: 180 RF: 3 ondansetron HCl 4 mg tablet 4 mg PO Q8H PRN (Reason: nausea and vomiting) Qty: 20 RF: 0 metformin 500 mg tablet 1,000 mg PO DAILY RF: 0 potassium chloride 10 mEq capsule, extended release 10 meq PO DAILY RF: 0 pantoprazole 40 mg tablet,delayed release (DR/EC) 40 mg PO DAILY RF: 0 zolpidem 5 mg tablet 5 mg PO BEDTIME RF: 0 hydrochlorothiazide 12.5 mg tablet 12.5 mg PO DAILY RF: 0 Discontinued Invokana 300 mg tablet 300 mg PO QAM Qty: 90 RF: 3 Discharge Diet: Advance as tolerated and Full LIquid Discharge Activity: Resume usual activity Discharge Attestations Time Spent in Discharge Care*: greater than 30 min Specific Discharge Activities: Specific discharge activities: educating patient, educating and/or supporting family/caregiver, discussing with watch case polisher/social workers/dc planners, documenting/other paperwork and evaluating patient/reviewing data Status at Discharge: Cognitive status at discharge: cognitively intact, Behavioral status at discharge: cooperative, Functional status at discharge: uses cane/walker Overall status at discharge: patient is back to baseline Quality Metrics Clinical Quality Measures During this hospital stay, did patient experience: None Coding Level of Care Code Acute Director Law Enforcement for Heather Fwd Diagnoses Pancreatitis, acute K85.90 Foot pain M79.673 Epilepsy G40.909 Essential (primary) hypertension I10 Diabetes E11.9 Chronic pain of lower extremity, bilateral M79.604; M79.605; G89.29 Bed bug bite [id number]
--- NOTE | 2020-07-29 16:21 | PC.NURSE ---
PT STATED DURING MORNING MED PASS, THAT SHE WANTED TO LEAVE. PT WAS VISITED BY MULTIPLE STAFF MEMBERS AND ADMINISTRATION AND ENCOURAGED TO STAY AND TO CONTINUE TREATMENT. AT 1235 NURSE WALKED IN ROOM TO GIVE PT MEDS. PT STATED THAT SHE WAS LEAVING. DR. RICE WAS NOTIFIED AND CAME TO PTS ROOM TO SEE PT. DISCUSSED HER STAYING 24 MORE HOURS AND HE WOULD DISCHARGE HER IN THE AM. SHE REFUSED TO STAY AND SIGNED OUT AMA. EDUCATED PT MULTIPLE TIMES THAT IF SHE NEEDED TO RETURN AT ANYTIME TO COME TO THE ER.
== END 2020-07-29 13:30 | disposition left against medical advice (07) | DRG 440 ==
LOC: ER 10:22 → MEDSURG 10:54
PROVIDERS: Emergency Medicine; Internal Medicine; Nurse Practitioner Family; Student in an Organized Health Care Education/Training Program; Admitting Provider Family Medicine; PCP Internal Medicine; Visit Provider Student in an Organized Health Care Education/Training Program
DX: K85.90 Acute pancreatitis without necrosis or infection, unspecified (principal); E11.9 Type 2 diabetes mellitus without complications; G40.909 Epilepsy, unspecified, not intractable, without status epilepticus; I10 Essential (primary) hypertension; K86.1 Other chronic pancreatitis; G89.29 Other chronic pain; M79.604 Pain in right leg; M79.605 Pain in left leg; Q65.89 Other specified congenital deformities of hip; Z96.653 Presence of artificial knee joint, bilateral; E86.0 Dehydration; T14.8XXA Other injury of unspecified body region, initial encounter; W57.XXXA Bitten or stung by nonvenomous insect and other nonvenomous arthropods, initial encounter; R30.0 Dysuria; M79.671 Pain in right foot; E27.9 Disorder of adrenal gland, unspecified; Z53.29 Procedure and treatment not carried out because of patient's decision for other reasons; Z79.84 Long term (current) use of oral hypoglycemic drugs
CPT/HCPCS: 12345; 36415; 36416; 71045; 73700; 74018; 74177; 74181; 76705; 80053; 81001; 82962; 83036; 83690; 84443; 84478; 84703; 85025; 87040; 87086; 87426; 87493; 87506; 93005; 96372; 96375; 99283; C9113; J1170; J1650; J1953; J2060; J2270; J2405; J2550; J2765; J3490; J7030; Q9967

== ENCOUNTER 2020-08-06 15:26 | Emergency (ER) | payer MEDICARE, MEDICAID, SELFPAY ==
[2020-08-06] VITALS (10 sets, daily range): BP systolic 86–120; BP diastolic 60–75; PULSE 69–82; RESP 15–23; TEMP 36.4; O2SAT 92–96; BMI 31.2
--- NOTE | 2020-08-06 17:03 | PC.NURSE ---
EKG done at 1700 and shown to ER doctor
--- NOTE | 2020-08-06 17:04 | ED_ITS ---
Documented by User: Janae Felipe MD 08/07/20 06:25 HPI - General Adult General: Chief complaint: General Medical Stated complaint: BP was 60/30, trouble eating Time Seen by Provider: 08/06/20 16:50 History of Present Illness: HPI narrative: This patient is a 40-year-old female who presents today with low blood pressure. She has a history of pancreatitis and was recently hospitalized for that. She says that she left the hospital too early and has not been able to eat and drink for the past week. She had an appointment with her regular doctor today and when they checked her blood pressure was 60/40. They sent her to the emergency room. She said she has been trying to eat and drink but it makes her pancreatitis pain worse and she feels like she is going to throw up. She has had diarrhea. She continued to take her blood pressure medicine and did not throw that up for the past couple of days. She took her carvedilol and hydrochlorothiazide this morning. She also has diabetes and has been taking some of her medications. She takes morphine 30 mg for pain and Zofran for nausea and vomiting. She said her pain is her typical pancreatitis pain. It starts in her epigastrium and wraps around the right side of her abdomen into her back. She also reports having increased seizure frequency today. Associated symptoms: Reports malaise, nausea and vomiting; Deny chest pain, dyspnea, headache(s) or rash Review of Systems General: Reports: 10 or more systems reviewed and unremarkable except in HPI and below Const: Reports: fatigue and malaise; Denies: fever(s) or chills Eyes: Denies: change in vision ENMT: Denies: odynophagia Card: Denies: chest pain or swelling of feet/ankles Resp: Denies: dyspnea, productive cough or non-productive cough GI: Reports: abdominal pain, nausea, vomiting and diarrhea : Denies: flank pain or difficulty voiding Musc: Denies: neck pain or back pain Skin/Breast: Denies: rash Neuro: Denies: headache(s), numbness in extremities or weakness in extremities Benjy/Lymph: Denies: easy bruising or easy bleeding [facility] ED PFSH: Medical History Chronic pain of lower extremity, bilateral 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 Diabetes Epilepsy Essential (primary) hypertension Primary osteoarthritis Surgical History History of bilateral knee replacement History of cholecystectomy History of D&C 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 Family History Grandmother Cancer Lung disease Stroke Mother Lung disease Other A-fib CHF (congestive heart failure) Social History Smoking and tobacco status: never smoked Alcohol intake: never Household members: spouse Housing: House Marital status: Current occupational status: disabled History of recent travel: No Physical Exam Const: COMMON NORMALS: patient oriented x3, no limitations and alert GENERAL APPEARANCE: cooperative, ill appearing and other (Pale) NUTRITIONAL APPEARANCE: obese HENMT: HEAD & SCALP: normal to inspection FACE & SINUS: normal facial exam Eye: GENERAL EYE: appearance normal, both eyes and all related structures Neck/C-Spine: COMMON NORMALS: supple, no meningeal signs and no JVD Chest: COMMONS NORMALS: normal inspection of the chest Resp: COMMON NORMALS: normal respiratory effort, No use of accessory muscles and clear to auscultation bilaterally AUSCULTATION: clear to auscultation bilaterally Cardio: COMMON NORMALS: no JVD, regular rate, regular rhythm and No murmurs present (Cardio) RATE: regular rate RHYTHM: regular rhythm GI: COMMON NORMALS: Normal to inspection, nondistended, normoactive bowel sounds present and Soft to palpation INSPECTION: Yes normal to inspection AUSCULTATION: Yes normoactive bowel sounds PALPATION: Yes Soft to palpation and Yes Tenderness to palpation present (GI) (Epigastrium and bilateral upper quadrants, worse on the right.) Back/Pelvis: COMMON NORMALS: thoracic and lumbar spine normal to inspection Extremity: COMMON NORMALS: normal to inspection Neuro: COMMON NORMALS: patient oriented x3, moves all extremities, no focal motor deficits and no sensory deficits noted SENSORIUM/ORIENTATION: Yes alert MENINGEAL SIGNS: Yes no meningeal signs Psych: COMMON NORMALS: mental status grossly normal, cooperative and normal affect Skin: COMMON NORMALS: no rashes or lesions noted and turgor normal GENERAL SKIN EXAM: no rashes or lesions noted and turgor normal Course ED course: This patient with chronic pancreatitis presents with low blood pressure after a week of being at home and stating that she is not able to eat and drink. She continued to take her blood pressure medications. Labs are pending. She is been given fluids. Her blood pressure has already improved. I am turning her over to Dr. Gardner at shift change. Vital Signs: Vital signs: Vital Signs Temperature 97.5 F L 08/06/20 15:29 Pulse Rate 81 08/06/20 22:33 Respiratory Rate 23 H 08/06/20 22:21 Blood Pressure 110/75 08/06/20 22:33 Pulse Oximetry 95 08/06/20 22:33 [facility] - General Adult Lab Data: Labs: Lab Results 08/06/20 08/06/20 08/06/20 Range/Units 17:17 17:17 18:19 WBC 8.5 (4.0-10.0) 10^3/ uL RBC 5.28 (4.1-5.3) 10^6/u L Hgb 15.1 (11.5-15.3) g/dL Hct 48.4 H (37.0-47.0) % MCV 91.7 (81-99) fL MCH 28.6 (28.0-34.0) pg MCHC 31.2 (30.0-36.0) g/dL RDW 14.6 (12.1-15.1) % Plt Count 371 (130-400) 10^3/c mm MPV 12.0 H (7.4-10.4) fL Neut % (Auto) 37.1 % Lymph % (Auto) 51.1 % [place] % (Auto) 8.8 % Eos % (Auto) 1.8 % Baso % (Auto) 0.8 % Neut # (Auto) 3.16 (1.8-7.7) 10^3/u L Lymph # (Auto) 4.3 (0.8-4.8) 10^3/u L [place] # (Auto) 0.8 (0.2-0.9) 10^3/u L Eos # (Auto) 0.2 (0.0-0.8) 10^3/u L Baso # (Auto) 0.1 (0.0-0.1) 10^3/u L Nucleated RBC % (a uto) 0 % Nucleated RBCs # 0.0 /100WBC Sodium Cancelled Potassium Cancelled Chloride Cancelled Carbon Dioxide Cancelled Anion Gap Cancelled BUN Cancelled Creatinine Cancelled GFR Calculation Cancelled Glucose Cancelled Calculated Osmolal ity Cancelled Lactic Acid (0.5-2.2) mmol/L Calcium Cancelled Magnesium (1.7-2.3) mg/dL Total Bilirubin Cancelled AST Cancelled ALT Cancelled Alkaline Phosphata se Cancelled Total Protein Cancelled Albumin Cancelled Globulin Cancelled Lipase Cancelled Urine Color Yellow (Yellow) Urine Appearance Clear (CLEAR) Urine pH 6 (5-7) Ur Specific Gravit y 1.010 (1.005-1.030) Urine Protein Neg (Negative) Urine Glucose (UA) Norm (Normal) Urine Ketones Negative (Negative) Urine Blood Neg (Negative) Urine Nitrate Negative (Negative) Urine Bilirubin Neg (Negative) Urine Urobilinogen Norm (Negative) mg/dL Ur Leukocyte Domitila ase Negative (Negative) 08/06/20 08/06/20 08/06/20 Range/Units 18:43 18:43 18:43 WBC (4.0-10.0) 10^3/ uL RBC (4.1-5.3) 10^6/u L Hgb (11.5-15.3) g/dL Hct (37.0-47.0) % MCV (81-99) fL MCH (28.0-34.0) pg MCHC (30.0-36.0) g/dL RDW (12.1-15.1) % Plt Count (130-400) 10^3/c mm MPV (7.4-10.4) fL Neut % (Auto) % Lymph % (Auto) % [place] % (Auto) % Eos % (Auto) % Baso % (Auto) % Neut # (Auto) (1.8-7.7) 10^3/u L Lymph # (Auto) (0.8-4.8) 10^3/u L [place] # (Auto) (0.2-0.9) 10^3/u L Eos # (Auto) (0.0-0.8) 10^3/u L Baso # (Auto) (0.0-0.1) 10^3/u L Nucleated RBC % (a uto) % Nucleated RBCs # /100WBC Sodium 138 Potassium 3.2 L Chloride 99 Carbon Dioxide 29 Anion Gap 13.2 BUN 16 Creatinine 0.9 GFR Calculation 69.3 L Glucose 96 Calculated Osmolal ity 287 Lactic Acid 1.0 (0.5-2.2) mmol/L Calcium 8.0 L Magnesium 1.4 L (1.7-2.3) mg/dL Total Bilirubin 0.3 AST 19 ALT 11 Alkaline Phosphata se 105 Total Protein 6.0 L Albumin 2.9 L Globulin 3.1 Lipase 42 Urine Color (Yellow) Urine Appearance (CLEAR) Urine pH (5-7) Ur Specific Gravit y (1.005-1.030) Urine Protein (Negative) Urine Glucose (UA) (Normal) Urine Ketones (Negative) Urine Blood (Negative) Urine Nitrate (Negative) Urine Bilirubin (Negative) Urine Urobilinogen (Negative) mg/dL Ur Leukocyte Domitila ase (Negative) Discharge Plan Discharge Patient Disposition: Home Clinical Impression: Acute dehydration Condition: Stable Prescriptions: New Zofran 4 mg tablet 4 mg PO Q6H PRN (Reason: nausea and vomiting) Qty: 20 RF: 0 No Action Briviact 25 mg tablet 25 mg PO DAILY RF: 0 glimepiride 4 mg tablet 4 mg PO BID Qty: 60 RF: 8 morphine 30 mg tablet extended release 30 mg PO Q12H 30 Days Qty: 60 RF: 0 furosemide 20 mg tablet 40 mg PO BID Qty: 120 RF: 3 carvedilol 12.5 mg tablet 12.5 mg PO BID Qty: 180 RF: 0 tizanidine 4 mg tablet 8 mg PO TID PRN (Reason: muscle spasticity) 30 Days Qty: 180 RF: 3 ondansetron HCl 4 mg tablet 4 mg PO Q8H PRN (Reason: nausea and vomiting) Qty: 20 RF: 0 metformin 500 mg tablet 1,000 mg PO DAILY RF: 0 potassium chloride 10 mEq capsule, extended release 10 meq PO DAILY RF: 0 pantoprazole 40 mg tablet,delayed release (DR/EC) 40 mg PO DAILY RF: 0 zolpidem 5 mg tablet 5 mg PO BEDTIME PRN (Reason: Sleep) RF: 0 hydrochlorothiazide 12.5 mg tablet 12.5 mg PO DAILY RF: 0 Hair,Skin and Nails Tablet 1 tab PO DAILY RF: 0 28 mg iron- 800 mcg Tablet 1 tab PO DAILY RF: 0 folic acid 1 cap PO DAILY RF: 0 Discharge Orders: Discharge Order (Routine); Ordered 08/06/20 Ordered By: Amy Gardner Referrals: Yony Otero MD [Primary Care Provider] - 1-3 days Discharge Diet: Advance as tolerated and Clear Liquid Discharge Activity: Increase activity as tolerated Patient Instructions: Dehydration (ED) Activity Restrictions/Additional Instructions: Please return to the ER immediately for any of the signs or symptoms listed on your discharge instruction sheets, worsening/changing of your symptoms, you are not getting better as quickly as expected, or for ANY other cause or concerns. Return to the ER for uncontrolled vomiting, fever, uncontrolled pain, or for any other cause for concern. Try to take as much fluid as possible including Gatorade and Powerade or Pedialyte or what ever you can tolerate at home to keep yourself hydrated. You have declined any work-up for your low oxygen level here in the ER as I have recommended. Of course things like heart problems, blood clots in your lungs and pneumonias can be life-threatening so if you change your mind or you do develop shortness of breath or chest pain you are more than welcome and encouraged to return for further evaluation and care. 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 Diabetes Epilepsy Essential (primary) hypertension Primary osteoarthritis Surgical History History of bilateral knee replacement History of cholecystectomy History of D&C 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 Family History Grandmother Cancer Lung disease Stroke Mother Lung disease Other A-fib CHF (congestive heart failure) Social History Smoking and tobacco status: never smoked Alcohol intake: never Household members: spouse Housing: House Marital status: Current occupational status: disabled History of recent travel: No Course Vital Signs: Vital signs: Vital Signs Temperature 97.5 F L 08/06/20 15:29 Pulse Rate 81 08/06/20 22:33 Respiratory Rate 23 H 08/06/20 22:21 Blood Pressure 110/75 08/06/20 22:33 Pulse Oximetry 95 08/06/20 22:33 MDM - General Adult MDM Narrative: Medical decision making narrative: 1953 -Case turned over to me at change of shift from Meliza Felipe. Please see her note for history, physical exam and medical decision-making notes. Patient has had only one low blood pressure here and all of the rest her blood pressures have been normal. She has not vomited here. She has complained of pain which she says is her chronic pain and I have given her a dose of pain medication here. She has been able to keep down her potassium I have given her without vomiting. Her abdominal exam shows no sign of peritonitis. Her labs are unremarkable. Clinically and by labs she does not appear dehydrated but they patient feels she is. The patient says she is nauseated at home and does not want to eat or drink so I will prescribe her nausea medicine when she leaves. No cardiac evaluation was ordered but the patient has no chest pain or shortness of breath. Her telemetry has been normal with no arrhythmias and her pulse ox and blood pressure have been normal here. I believe her hypertension was due to taking her blood pressure medications and being volume depleted. Here she has been given 2 L of IV fluids and she states she is feeling much better. She understands to return if her symptoms change or worsen but at this time she is feeling better and would like to be discharged. The patient wanted to be discharged and immediately called for her ride but after much encouragement by me she does agree to stay for the rest of her IV potassium and magnesium before leaving. 2117 -patient had an episode where her pulse ox dropped to the low 80s for approximately 20 seconds. Patient was evaluated stated she had no chest pain or shortness of breath. I recommended and offered to expand our work-up including a chest x-ray, EKG and further blood work but the patient refuses. She states that she feels fine and she wants to go home as soon as her potassium is done. 2229 -I have again discussed with the patient her intermittently low pulse ox. It dropped down to the low 90s occasionally to the high 80s but immediately goes back up to normal. Patient still denies any chest pain or shortness of breath. I have discussed with her the risks of what could be causing this including heart problems or blood clots in the lungs both of which can be life-threatening but does state my repeated warnings and encouragement to have a complete work-up she refuses. Patient understands she be leaving AGAINST MEDICAL ADVICE but she understands she is more than welcome to return should she change her mind. Lab Data: Attestation: I reviewed the patient's lab results. Labs: Lab Results 08/06/20 08/06/20 08/06/20 Range/Units 17:17 17:17 18:19 WBC 8.5 (4.0-10.0) 10^3/ uL RBC 5.28 (4.1-5.3) 10^6/u L Hgb 15.1 (11.5-15.3) g/dL Hct 48.4 H (37.0-47.0) % MCV 91.7 (81-99) fL MCH 28.6 (28.0-34.0) pg MCHC 31.2 (30.0-36.0) g/dL RDW 14.6 (12.1-15.1) % Plt Count 371 (130-400) 10^3/c mm MPV 12.0 H (7.4-10.4) fL Neut % (Auto) 37.1 % Lymph % (Auto) 51.1 % [place] % (Auto) 8.8 % Eos % (Auto) 1.8 % Baso % (Auto) 0.8 % Neut # (Auto) 3.16 (1.8-7.7) 10^3/u L Lymph # (Auto) 4.3 (0.8-4.8) 10^3/u L [place] # (Auto) 0.8 (0.2-0.9) 10^3/u L Eos # (Auto) 0.2 (0.0-0.8) 10^3/u L Baso # (Auto) 0.1 (0.0-0.1) 10^3/u L Nucleated RBC % (a uto) 0 % Nucleated RBCs # 0.0 /100WBC Sodium Cancelled Potassium Cancelled Chloride Cancelled Carbon Dioxide Cancelled Anion Gap Cancelled BUN Cancelled Creatinine Cancelled GFR Calculation Cancelled Glucose Cancelled Calculated Osmolal ity Cancelled Lactic Acid (0.5-2.2) mmol/L Calcium Cancelled Magnesium (1.7-2.3) mg/dL Total Bilirubin Cancelled AST Cancelled ALT Cancelled Alkaline Phosphata se Cancelled Total Protein Cancelled Albumin Cancelled Globulin Cancelled Lipase Cancelled Urine Color Yellow (Yellow) Urine Appearance Clear (CLEAR) Urine pH 6 (5-7) Ur Specific Gravit y 1.010 (1.005-1.030) Urine Protein Neg (Negative) Urine Glucose (UA) Norm (Normal) Urine Ketones Negative (Negative) Urine Blood Neg (Negative) Urine Nitrate Negative (Negative) Urine Bilirubin Neg (Negative) Urine Urobilinogen Norm (Negative) mg/dL Ur Leukocyte Domitila ase Negative (Negative) 08/06/20 08/06/20 08/06/20 Range/Units 18:43 18:43 18:43 WBC (4.0-10.0) 10^3/ uL RBC (4.1-5.3) 10^6/u L Hgb (11.5-15.3) g/dL Hct (37.0-47.0) % MCV (81-99) fL MCH (28.0-34.0) pg MCHC (30.0-36.0) g/dL RDW (12.1-15.1) % Plt Count (130-400) 10^3/c mm MPV (7.4-10.4) fL Neut % (Auto) % Lymph % (Auto) % [place] % (Auto) % Eos % (Auto) % Baso % (Auto) % Neut # (Auto) (1.8-7.7) 10^3/u L Lymph # (Auto) (0.8-4.8) 10^3/u L [place] # (Auto) (0.2-0.9) 10^3/u L Eos # (Auto) (0.0-0.8) 10^3/u L Baso # (Auto) (0.0-0.1) 10^3/u L Nucleated RBC % (a uto) % Nucleated RBCs # /100WBC Sodium 138 Potassium 3.2 L Chloride 99 Carbon Dioxide 29 Anion Gap 13.2 BUN 16 Creatinine 0.9 GFR Calculation 69.3 L Glucose 96 Calculated Osmolal ity 287 Lactic Acid 1.0 (0.5-2.2) mmol/L Calcium 8.0 L Magnesium 1.4 L (1.7-2.3) mg/dL Total Bilirubin 0.3 AST 19 ALT 11 Alkaline Phosphata se 105 Total Protein 6.0 L Albumin 2.9 L Globulin 3.1 Lipase 42 Urine Color (Yellow) Urine Appearance (CLEAR) Urine pH (5-7) Ur Specific Gravit y (1.005-1.030) Urine Protein (Negative) Urine Glucose (UA) (Normal) Urine Ketones (Negative) Urine Blood (Negative) Urine Nitrate (Negative) Urine Bilirubin (Negative) Urine Urobilinogen (Negative) mg/dL Ur Leukocyte Domitila ase (Negative) Discharge Plan Discharge Patient Disposition: Home Clinical Impression: Acute dehydration Condition: Stable Prescriptions: New Zofran 4 mg tablet 4 mg PO Q6H PRN (Reason: nausea and vomiting) Qty: 20 RF: 0 No Action Briviact 25 mg tablet 25 mg PO DAILY RF: 0 glimepiride 4 mg tablet 4 mg PO BID Qty: 60 RF: 8 morphine 30 mg tablet extended release 30 mg PO Q12H 30 Days Qty: 60 RF: 0 furosemide 20 mg tablet 40 mg PO BID Qty: 120 RF: 3 carvedilol 12.5 mg tablet 12.5 mg PO BID Qty: 180 RF: 0 tizanidine 4 mg tablet 8 mg PO TID PRN (Reason: muscle spasticity) 30 Days Qty: 180 RF: 3 ondansetron HCl 4 mg tablet 4 mg PO Q8H PRN (Reason: nausea and vomiting) Qty: 20 RF: 0 metformin 500 mg tablet 1,000 mg PO DAILY RF: 0 potassium chloride 10 mEq capsule, extended release 10 meq PO DAILY RF: 0 pantoprazole 40 mg tablet,delayed release (DR/EC) 40 mg PO DAILY RF: 0 zolpidem 5 mg tablet 5 mg PO BEDTIME PRN (Reason: Sleep) RF: 0 hydrochlorothiazide 12.5 mg tablet 12.5 mg PO DAILY RF: 0 Hair,Skin and Nails Tablet 1 tab PO DAILY RF: 0 28 mg iron- 800 mcg Tablet 1 tab PO DAILY RF: 0 folic acid 1 cap PO DAILY RF: 0 Discharge Orders: Discharge Order (Routine); Ordered 08/06/20 Ordered By: Amy Gardner Referrals: Yony Otero MD [Primary Care Provider] - 1-3 days Discharge Diet: Advance as tolerated and Clear Liquid Discharge Activity: Increase activity as tolerated Patient Instructions: Dehydration (ED) Activity Restrictions/Additional Instructions: Please return to the ER immediately for any of the signs or symptoms listed on your discharge instruction sheets, worsening/changing of your symptoms, you are not getting better as quickly as expected, or for ANY other cause or concerns. Return to the ER for uncontrolled vomiting, fever, uncontrolled pain, or for any other cause for concern. Try to take as much fluid as possible including Gatorade and Powerade or Pedialyte or what ever you can tolerate at home to keep yourself hydrated. You have declined any work-up for your low oxygen level here in the ER as I have recommended. Of course things like heart problems, blood clots in your lungs and pneumonias can be life-threatening so if you change your mind or you do develop shortness of breath or chest pain you are more than welcome and encouraged to return for further evaluation and care. 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 Comprehensive
--- NOTE | 2020-08-06 17:19 | ECG_ITS ---
[facility] Test Date: 2020-08-06 Pat Name: Eleanor Ragland Department: Room: Gender: Female [employer] Supervisor: : 1980 Requested By: Janae Spivey Order Number: [id number] Dianna MD: Sola Espitia M.D. Measurements Intervals Carbon Rate: 71 P: 27 HI: 117 QRS: -4 QRSD: 98 T: 198 QT: 484 QTc: 528 Interpretive Statements SINUS RHYTHM WITH SHORT HI INTERVAL ANTERIOR MYOCARDIAL INFARCTION , OF INDETERMINATE AGE INFERIOR MYOCARDIAL INFARCTION , OF INDETERMINATE AGE MARKED T-WAVE ABNORMALITY, CONSIDER LATERAL ISCHEMIA Compared to ECG 07/24/2020 11:49:10 T-wave abnormality now present Possible ischemia now present Sinus tachycardia no longer present Left ventricular hypertrophy no longer present ST (T wave) deviation no longer present Myocardial infarct finding still present Electronically Signed On 08-06-2020 18:56:20 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 [id number] f
[2020-08-06 17:27] LABS: Basophils # 0.1 10^3/uL (0.0-0.1); Basophils % 0.8 %; Eosinophils # 0.2 10^3/uL (0.0-0.8); Eosinophils % 1.8 %; Hematocrit 48.4 % (37.0-47.0); Hemoglobin 15.1 g/dL (11.5-15.3); Lymphocytes # 4.3 10^3/uL (0.8-4.8); Lymphocytes % 51.1 %; Mean Corpuscular HGB Conc 31.2 g/dL (30.0-36.0); Mean Corpuscular Hemoglobin 28.6 pg (28.0-34.0); Mean Corpuscular Volume 91.7 fL (81-99); Monocytes # 0.8 10^3/uL (0.2-0.9); Monocytes % 8.8 %; Neutrophils # 3.16 10^3/uL (1.8-7.7); Neutrophils % 37.1 %; Nucleated Red Blood Cells % 0 %; Platelet Count 371 10^3/cmm (130-400); Red Blood Count 5.28 10^6/uL (4.1-5.3); Red Cell Distribution Width 14.6 % (12.1-15.1); White Blood Count 8.5 10^3/uL (4.0-10.0)
[2020-08-06] MEDS: sodium chloride 0.9% 1,000 ML 999 ML IV (17:45)
[2020-08-06 19:06] LABS: Add Urine Microscopic? NO
[2020-08-06 19:07] LABS: Alanine Aminotransferase 11 U/L (0-33); Albumin Level 2.9 g/dL (3.5-5.2); Alkaline Phosphatase 105 IU/L (35-105); Anion Gap 13.2 (5-19); Aspartate Amino Transferase 19 U/L (0-32); Blood Urea Nitrogen 16 mg/dL (6-20); Carbon Dioxide 29 mmol/L (22-29); Chloride 99 mmol/L (98-107); Globulin 3.1 g/dL (1.3-4.6); Glomerular Filtration Rate 69.3 mL/min (90-130); Glucose 96 mg/dL (65-115); Osmolality Calculated 287 mOsm/kg (285-295); Potassium 3.2 mmol/L (3.5-5.1); Sodium 138 mmol/L (136-145); Total Bilirubin 0.3 mg/dL (0.15-1.2)
[2020-08-06] MEDS: ondansetron 2 mg/ML SDV 2 mL 4 MG IVP (19:09)
[2020-08-06 19:19] LABS: Bilirubin Urine Neg (Negative); Blood Urine Neg (Negative); Glucose Urine UA Norm (Normal); Ketones Urine Negative (Negative); Nitrate Urine Negative (Negative); Protein Urine Neg (Negative); Urine Appearance Clear (CLEAR); Urine Color Yellow (Yellow); Urobilinogen Urine Norm (Negative); pH Urine 6 (5-7)
[2020-08-06 19:20] LABS: Leukocyte Esterase Urine Negative (Negative)
[2020-08-06 19:43] LABS: Lipase 42 U/L (13-60); Magnesium 1.4 mg/dL (1.7-2.3)
[2020-08-06] MEDS: potassium chloride ER 10 mEq Tablet 40 MEQ PO (20:03)
[2020-08-06] MEDS: HYDROmorphone 1 mg/mL INJ 1 mL IVP (20:03)
[2020-08-06] MEDS: lactated ringers 1,000 ML 999 ML IV (20:08)
[2020-08-06] MEDS: potassium chloride premix 100 ML 50 MEQ IV (20:12)
[2020-08-06] MEDS: magnesium sulfate premix 2 GM/50 ML PIGGYBACK IV (20:18)
--- NOTE | 2020-08-06 22:22 | PC.NURSE ---
Dr Gardner and I spoke to the pt regarding low O2, pt refused further treatment, even though she was told it could potentially be life threatening.
== END 2020-08-06 22:36 | disposition home or self-care (01) ==
PROVIDERS: Emergency Medicine; Emergency Provider Emergency Medicine; PCP Internal Medicine
DX: E86.0 Dehydration (principal); E11.9 Type 2 diabetes mellitus without complications; I10 Essential (primary) hypertension
CPT/HCPCS: 12345; 36415; 80053; 81003; 83605; 83690; 83735; 85025; 93005; 96365; 96366; 96367; 96375; 99283; 99284; 99291; J1170; J2405; J3475; J3480; J7030

== ENCOUNTER 2020-08-27 09:32 | Outpatient (CLI) | payer MEDICARE, MEDICAID, SELFPAY ==
[2020-08-27 10:04] LABS: Basophils # 0.1 10^3/uL (0.0-0.1); Eosinophils # 0.3 10^3/uL (0.0-0.8); Eosinophils % 3.2 %; Hematocrit 47.6 % (37.0-47.0); Hemoglobin 15.2 g/dL (11.5-15.3); Lymphocytes # 4.8 10^3/uL (0.8-4.8); Lymphocytes % 52.2 %; Mean Corpuscular HGB Conc 31.9 g/dL (30.0-36.0); Mean Corpuscular Hemoglobin 29.1 pg (28.0-34.0); Mean Platelet Volume 11.6 fL (7.4-10.4); Monocytes # 0.6 10^3/uL (0.2-0.9); Monocytes % 6.9 %; Neutrophils # 3.33 10^3/uL (1.8-7.7); Neutrophils % 36.4 %; Nucleated Red Blood Cells % 0 %; Platelet Count 351 10^3/cmm (130-400); Red Blood Count 5.23 10^6/uL (4.1-5.3); White Blood Count 9.1 10^3/uL (4.0-10.0)
[2020-08-27 10:28] LABS: Alanine Aminotransferase 11 U/L (0-33); Albumin Level 3.9 g/dL (3.5-5.2); Alkaline Phosphatase 123 IU/L (35-105); Anion Gap 15.3 (5-19); Aspartate Amino Transferase 19 U/L (0-32); Blood Urea Nitrogen 15 mg/dL (6-20); Calcium 9.5 mg/dL (8.5-10.5); Carbon Dioxide 33 mmol/L (22-29); Chloride 92 mmol/L (98-107); Chol HDL Ratio 7.88 mg/dL (0.0-4.40); Cholesterol 252 mg/dL (0-200); Globulin 3.3 g/dL (1.3-4.6); Glomerular Filtration Rate 49.8 mL/min (90-130); Glucose 183 mg/dL (65-115); HDL Cholesterol 32 mg/dL (60-100); LDL Cholesterol Calculated 157 mg/dL (50-129); LDL HDL Ratio 4.91 RATIO (0.00-3.22); Osmolality Calculated 290 mOsm/kg (285-295); Potassium 3.3 mmol/L (3.5-5.1); Sodium 137 mmol/L (136-145); Total Bilirubin 0.3 mg/dL (0.15-1.2); Total Protein 7.2 g/dL (6.6-8.7); Triglycerides 317 mg/dL (0-150)
[2020-08-27 11:32] LABS: Folate Level > 20.0 ng/mL (4.8-37.3)
== END 2020-08-27 09:33 | disposition home or self-care (01) ==
PROVIDERS: PCP Internal Medicine; Visit Provider Internal Medicine
DX: K85.90 Acute pancreatitis without necrosis or infection, unspecified (principal); K75.81 Nonalcoholic steatohepatitis (NASH)
CPT/HCPCS: 36415; 80053; 80061; 82746; 85025

== ENCOUNTER → 2020-09-03 12:30 | Outpatient (BNVA) | payer MEDICARE, MEDICAID, SELFPAY | PROVIDERS: PCP Internal Medicine; Visit Provider Internal Medicine | DX: Z20.828 Contact with and (suspected) exposure to other viral communicable diseases (principal); Z01.818 Encounter for other preprocedural examination | CPT/HCPCS: 87635 ==

== ENCOUNTER 2020-09-06 00:32 | Emergency (ER) | payer MEDICARE, MEDICAID, SELFPAY ==
[2020-09-06] VITALS (8 sets, daily range): BP systolic 108–168; BP diastolic 64–87; PULSE 65–86; RESP 16–18; TEMP 36.5–36.8; O2SAT 95–97; BMI 21.4
--- NOTE | 2020-09-06 01:13 | ED_ITS ---
Documented by User: MOHIT Rocha 09/06/20 17:58 HPI - Weakness General: Chief complaint: Weakness Stated complaint: weakness Time Seen by Provider: 09/06/20 00:39 History of Present Illness: HPI Narrative: Patient is a 40-year-old female comes to the ED with fatigue, nausea/vomiting and abdominal pain. Patient tested positive for COVID-19 on September 03. Symptoms started on Tuesday, August 31. She has had a dry cough, nasal drainage and congestion along with nausea/vomiting and abdominal pain since Tuesday. Patient has past medical history of cholecystectomy, pancreatitis, hypertension, diabetes. She says she has not had much to eat or drink in the past couple days. She feels very sleepy and tired most of the day as well. Abdominal pain is located in the right side of the abdomen and she rates it currently a 4 out of 10. Denies any diarrhea, constipation, dysuria, hematuria, fever, chest pain or shortness of breath. MD Complaint: difficulty walking Associated symptoms: Reports nausea and vomiting; Denies chest pain, chills, dysuria, fever(s) or headache(s) Review of Systems Const: Reports: fatigue; Denies: fever(s) or chills Eyes: Denies: change in vision or eye discomfort ENMT: Denies: throat pain, odynophagia, nasal discharge or nasal congestion Card: Denies: chest pain, palpitations, edema, swelling of feet/ankles, dyspnea on exertion or orthopnea Resp: Reports: non-productive cough; Denies: dyspnea or productive cough GI: Reports: abdominal pain (Right side of the abdomen), nausea and vomiting; Denies: diarrhea, constipation or hematochezia : Denies: flank pain, dysuria or hematuria Musc: Denies: neck pain, back pain or extremity swelling Skin/Breast: Denies: rash or new lesions Neuro: Denies: headache(s), numbness in extremities or weakness in extremities PFSH ED PFSH: Medical History (Updated 09/06/20 @ 05:30 by Vishnu Alejo DO) Chronic pain of lower extremity, bilateral 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 Diabetes Epilepsy Essential (primary) hypertension Primary osteoarthritis Surgical History History of bilateral knee replacement History of cholecystectomy History of D&C 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 Family History Grandmother Cancer Lung disease Stroke Mother Lung disease Other A-fib CHF (congestive heart failure) Social History Smoking and tobacco status: never smoked Alcohol intake: never Household members: spouse Housing: House Marital status: Current occupational status: disabled History of recent travel: No Physical Exam Const: COMMON NORMALS: no acute distress, patient oriented x3 and alert GENERAL APPEARANCE: cooperative, comfortable and lethargic (Patient appears a little tired and sleepy.) ORIENTATION/CONSCIOUSNESS: Yes lethargic (Patient appears a little tired and sleepy.) HENMT: COMMON NORMALS: normocephalic HEAD & SCALP: normocephalic MOUTH: Normal oral and palatal mucosa present THROAT: posterior oropharynx normal and uvula midline Eye: COMMON NORMALS: conjunctivae normal CONJUNCTIVA: Yes conjunctivae normal PUPIL: Yes Pupil accommodation reflex normal (Right pupil was normal and accommodation reflex normal as well.) and Yes Pupils not reactive on the left (Left pupil dilated and limited reaction to light.) Neck/C-Spine: COMMON NORMALS: supple GENERAL: Yes normal visual inspection Resp: COMMON NORMALS: normal respiratory effort, No retractions, No use of accessory muscles and clear to auscultation bilaterally EFFORT & INSPECTION: Yes able to speak in complete sentences, No tachypneic, No respiratory distress and No labored AUSCULTATION: clear to auscultation bilaterally Cardio: COMMON NORMALS: regular rate, regular rhythm, S1 normal heart sound present, S2 normal heart sound present, No gallops present (Cardio), No clicks present (Cardio), No murmurs present (Cardio) and Peripheral pulses 2+ throughout RATE: regular rate RHYTHM: regular rhythm HEART SOUNDS: S1 normal heart sound present and S2 normal heart sound present PERIPHERAL PULSES: Peripheral pulses 2+ throughout GI: COMMON NORMALS: Normal to inspection, nondistended, normoactive bowel sounds present, Soft to palpation and no masses PALPATION: Yes Soft to palpation and Yes Tenderness to palpation present (GI) Details: RUQ : COMMON NORMALS: Yes no CVA tenderness BLADDER/KIDNEY EXAM: Yes no CVA tenderness Back/Pelvis: COMMON NORMALS: no CVA tenderness Extremity: COMMON NORMALS: normal to inspection and no pedal edema Neuro: COMMON NORMALS: patient oriented x3 and moves all extremities SENSORIUM/ORIENTATION: Yes alert and Yes lethargic (Patient appears a little tired and sleepy.) Skin: GENERAL SKIN EXAM: dry skin Course ED course: Patient care will be transferred over to Dr. Alejo. Discussed patient case and lab and image findings. I told Dr. Alejo a couple labs are pending. [facility] Vital Signs: Vital signs: Vital Signs Temperature 98.2 F 09/06/20 06:09 Pulse Rate 72 09/06/20 06:09 Respiratory Rate 18 09/06/20 06:09 Blood Pressure 108/64 09/06/20 06:09 Pulse Oximetry 96 09/06/20 06:09 MDM - Weakness Lab Data: Attestation: I reviewed the patient's lab results. Labs: Lab Results 09/06/20 09/06/20 09/06/20 Range/Units 01:13 01:13 02:15 WBC 11.1 H (4.0-10.0) 10^3/ uL RBC 4.95 (4.1-5.3) 10^6/u L Hgb 14.3 (11.5-15.3) g/dL Hct 45.4 (37.0-47.0) % MCV 91.7 (81-99) fL MCH 28.9 (28.0-34.0) pg MCHC 31.5 (30.0-36.0) g/dL RDW 14.7 (12.1-15.1) % Plt Count 258 (130-400) 10^3/c mm MPV 12.1 H (7.4-10.4) fL Neut % (Auto) 57.1 % Lymph % (Auto) 35.1 % [place] % (Auto) 6.0 % Eos % (Auto) 0.9 % Baso % (Auto) 0.6 % Neut # (Auto) 6.33 (1.8-7.7) 10^3/u L Lymph # (Auto) 3.9 (0.8-4.8) 10^3/u L [place] # (Auto) 0.7 (0.2-0.9) 10^3/u L Eos # (Auto) 0.1 (0.0-0.8) 10^3/u L Baso # (Auto) 0.1 (0.0-0.1) 10^3/u L Nucleated RBC % (a uto) 0 % Nucleated RBCs # 0.0 /100WBC Sodium 140 (136-145) mmol/L Potassium 4.3 (3.5-5.1) mmol/L Chloride 104 (98-107) mmol/L Carbon Dioxide 22 (22-29) mmol/L Anion Gap 18.3 (5-19) BUN 7 (6-20) mg/dL Creatinine 0.5 (0.5-0.9) mg/dL GFR Calculation 136.6 H (90-130) mL/min Glucose 173 H (65-115) mg/dL Calculated Osmolal ity 292 (285-295) mOsm/k g Calcium 9.4 (8.5-10.5) mg/dL Total Bilirubin 0.3 (0.15-1.2) mg/dL AST 20 (0-32) U/L ALT 8 (0-33) U/L Alkaline Phosphata se 83 (35-105) IU/L Total Protein 6.7 (6.6-8.7) g/dL Albumin 3.7 (3.5-5.2) g/dL Globulin 3.0 (1.3-4.6) g/dL Lipase 36 (13-60) U/L HCG, Qual Negative (Negative) Urine Color (Yellow) Urine Appearance (CLEAR) Urine pH (5-7) Ur Specific Gravit y (1.005-1.030) Urine Protein (Negative) Urine Glucose (UA) (Normal) Urine Ketones (Negative) Urine Blood (Negative) Urine Nitrate (Negative) Urine Bilirubin (Negative) Prot Sulfosalicyli c Acd (Negative) Urine Urobilinogen (Negative) mg/dL Ur Leukocyte Domitila ase (Negative) Urine RBC (0-2) /hpf Urine WBC (0-5) /hpf Ur Squamous Epith Cells (0-5) /hpf Ur Renal Epithelia l Cell /hpf Amorphous Sediment Urine Bacteria (NONE) /hpf 09/06/20 Range/Units 03:50 WBC (4.0-10.0) 10^3/ uL RBC (4.1-5.3) 10^6/u L Hgb (11.5-15.3) g/dL Hct (37.0-47.0) % MCV (81-99) fL MCH (28.0-34.0) pg MCHC (30.0-36.0) g/dL RDW (12.1-15.1) % Plt Count (130-400) 10^3/c mm MPV (7.4-10.4) fL Neut % (Auto) % Lymph % (Auto) % [place] % (Auto) % Eos % (Auto) % Baso % (Auto) % Neut # (Auto) (1.8-7.7) 10^3/u L Lymph # (Auto) (0.8-4.8) 10^3/u L [place] # (Auto) (0.2-0.9) 10^3/u L Eos # (Auto) (0.0-0.8) 10^3/u L Baso # (Auto) (0.0-0.1) 10^3/u L Nucleated RBC % (a uto) % Nucleated RBCs # /100WBC Sodium (136-145) mmol/L Potassium (3.5-5.1) mmol/L Chloride (98-107) mmol/L Carbon Dioxide (22-29) mmol/L Anion Gap (5-19) BUN (6-20) mg/dL Creatinine (0.5-0.9) mg/dL GFR Calculation (90-130) mL/min Glucose (65-115) mg/dL Calculated Osmolal ity (285-295) mOsm/k g Calcium (8.5-10.5) mg/dL Total Bilirubin (0.15-1.2) mg/dL AST (0-32) U/L ALT (0-33) U/L Alkaline Phosphata se (35-105) IU/L Total Protein (6.6-8.7) g/dL Albumin (3.5-5.2) g/dL Globulin (1.3-4.6) g/dL Lipase (13-60) U/L HCG, Qual (Negative) Urine Color Yellow (Yellow) Urine Appearance Cloudy (CLEAR) Urine pH 9 H (5-7) Ur Specific Gravit y 1.010 (1.005-1.030) Urine Protein Trace (Negative) Urine Glucose (UA) 2+ (Normal) Urine Ketones Negative (Negative) Urine Blood Neg (Negative) Urine Nitrate Negative (Negative) Urine Bilirubin Neg (Negative) Prot Sulfosalicyli c Acd Positive (Negative) Urine Urobilinogen 1 H (Negative) mg/dL Ur Leukocyte Domitila ase Negative (Negative) Urine RBC 0-4 H (0-2) /hpf Urine WBC None (0-5) /hpf Ur Squamous Epith Cells 80-100 H (0-5) /hpf Ur Renal Epithelia l Cell None /hpf Amorphous Sediment Not Reportable Urine Bacteria 1+ H (NONE) /hpf Imaging Data^: CXR: Attestation: I personally reviewed and interpreted this imaging study as follows: My impression: No acute findings. No lung infiltrates or pneumonia seen. Radiologist's impression: [address] [address] XRay Report Signed Patient: Eleanor Ragland Unit #: [id number] : 1980 Age/Sex: 40 / F ADM Date: 09/06/20 Loc: ER Room/Bed: Attending Dr: Ordering Provider/Ordering MD: Chris Walker Date of Service: 09/06/20 Procedure(s): XR chest 1V portable [id number] Accession Number(s): [id number] Report Number: [id number] PROCEDURE INFORMATION: Exam: XR Chest, 1 View Exam date and time: 09/06/2020 2:08 AM Age: 40 years old Clinical indication: Patient HX: General weakness. Covid +; Additional info: Cough TECHNIQUE: Imaging protocol: XR of the chest Views: 1 view. COMPARISON: CR XR chest 1V portable [id number] 07/24/2020 11:41 AM FINDINGS: Lungs: Few infiltrates are seen in the left base. No consolidation. Pleural space: Unremarkable. No pleural effusion. No pneumothorax. Heart/Mediastinum: Unremarkable. No cardiomegaly. Bones/joints: Unremarkable. XR/XR chest 1V portable [id number] IMPRESSION: Few infiltrates are seen in the left base. Dictated By: Amanda Lam Signed By: Amanda Lam Signed Date/Time: 09/06/20318 DD/ 7 CT Abd/Pel: Attestation: I personally reviewed and interpreted this imaging study as follows: Radiologist's impression: [id number] [address] [address] Scan Report Signed Patient: Eleanor Ragland Unit #: [id number] : 1980 Acct#:OV [id number] Age/Sex: 40 / F ADM Date: 09/06/20 Loc: ER Room/Bed: Attending Dr: Ordering Provider/Ordering MD: Chris Walker Date of Service: 09/06/20 Procedure(s): CT abdomen pelvis w con* [id number] Accession Number(s): [id number] Report Number: [id number] PROCEDURE INFORMATION: Exam: CT Abdomen And Pelvis With Contrast Exam date and time: 09/06/2020 2:09 AM Age: 40 years old Clinical indication: Abdominal pain; Generalized; Prior surgery; Surgery type: Gb; Patient HX: General abd pain with n/v. Covid +; Additional info: Abdominal pain, n/v TECHNIQUE: Imaging protocol: Computed tomography of the abdomen and pelvis with intravenous contrast. Radiation optimization: All CT scans at this facility use at least one of these dose optimization techniques: automated exposure control; mA and/or kV adjustment per patient size (includes targeted exams where dose is matched to clinical indication); or iterative reconstruction. Contrast material: OMNI 300; Contrast volume: 95 ml; Contrast route: INTRAVENOUS (IV); COMPARISON: CT abdomen pelvis w con* [id number] 07/25/2020 5:01 PM RADIATION DOSE METRICS: Total DLP (mGy-cm): 463.55 FINDINGS: Liver: Fatty change is present. No mass. Gallbladder and bile ducts: The gallbladder is surgically absent. No ductal dilation. Pancreas: Mild inflammation is seen in the head of the pancreas showing improvement since previous examination. Spleen: Normal. No splenomegaly. Adrenal glands: A 1.4 x 1.7 cm lipid rich nodule in the left adrenal is consistent with benign adenoma. Kidneys and ureters: Normal. No hydronephrosis. Stomach and bowel: Mild ileus of the small bowel loops is seen filled with fluid content. No obstruction. No mucosal thickening. Appendix: No evidence of appendicitis. Unremarkable appendix is seen. Intraperitoneal space: Unremarkable. No free air. No significant fluid collection. Vasculature: Unremarkable. No abdominal aortic aneurysm. Lymph nodes: Unremarkable. No enlarged lymph nodes. Urinary bladder: Unremarkable as visualized. Reproductive: A 3 cm cyst is seen in the left adnexa new since previous exam. Bones/joints: Unremarkable. No acute fracture. Soft tissues: Unremarkable. CT/CT abdomen pelvis w con* [id number] IMPRESSION: 1. Mild pancreatitis is present showing improved appearance since previous examination. 2. Fatty change is present in the liver. 3. The gallbladder is surgically absent. 4. Mild ileus of the small bowel loops is seen. 5. A new 3 cm cyst is seen in the left adnexa. 6. A nodule in the left adrenal appears to be an adenoma. Radiation Dose CTDIVOL = (mGy): DLP = 463.55 (mGy-cm) Dictated By: Amanda Lam Signed By: Amanda Lam Signed Date/Time: 09/06/20317 DD/ 6 Discharge Plan Discharge Patient Disposition: Home Clinical Impression: Pneumonia due to COVID-19 virus Chronic pancreatitis Qualifiers: Pancreatitis type: other Qualified Code(s): K86.1 - Other chronic pancreatitis Condition: Stable Prescriptions: New Dilaudid 2 mg tablet 2 mg PO Q4H PRN (Reason: pain) Qty: 7 RF: 0 Zofran 4 mg tablet 4 mg PO Q6H PRN (Reason: nausea and vomiting) Qty: 10 RF: 0 No Action Briviact 25 mg tablet 25 mg PO DAILY RF: 0 Zofran 4 mg tablet 4 mg PO Q6H PRN (Reason: nausea and vomiting) Qty: 60 RF: 0 pantoprazole 40 mg tablet,delayed release (DR/EC) 40 mg PO BID Qty: 180 RF: 3 morphine 30 mg tablet extended release 30 mg PO Q12H 30 Days Qty: 60 RF: 0 furosemide 20 mg tablet 40 mg PO BID Qty: 120 RF: 3 tizanidine 4 mg tablet 8 mg PO TID PRN (Reason: muscle spasticity) 30 Days Qty: 180 RF: 3 ondansetron HCl 4 mg tablet 4 mg PO Q8H PRN (Reason: nausea and vomiting) Qty: 20 RF: 0 potassium chloride 10 mEq capsule, extended release 10 meq PO DAILY RF: 0 zolpidem 5 mg tablet 5 mg PO BEDTIME PRN (Reason: Sleep) RF: 0 hydrochlorothiazide 12.5 mg tablet 12.5 mg PO DAILY RF: 0 multivitamin with minerals [Hair,Skin and Nails] Tablet 1 tab PO DAILY RF: 0 PNV cmb#95-ferrous fumarate-FA [] 28 mg iron- 800 mcg Tablet 1 tab PO DAILY RF: 0 folic acid 1 cap PO DAILY RF: 0 Discharge Orders: Discharge ED (Routine); Ordered 09/06/20 Ordered By: Vishnu Alejo Referrals: Yony Otero MD [Primary Care Provider] - 1-3 days Discharge Diet: Clear Liquid Discharge Activity: Increase activity as tolerated Patient Instructions: Viral Pneumonia (ED), Pancreatitis (ED) Activity Restrictions/Additional Instructions: Use prescribed medication only for breakthrough pain. Take nausea medication scheduled every 6 hours for the next 36 hours, then as needed. Follow a clear liquid diet. Return for fever greater than 100, shortness of breath, vomiting liquids or medications despite treatment, other concerning symptoms. 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 Diabetes Epilepsy Essential (primary) hypertension Primary osteoarthritis Surgical History History of bilateral knee replacement History of cholecystectomy History of D&C 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 Family History Grandmother Cancer Lung disease Stroke Mother Lung disease Other A-fib CHF (congestive heart failure) Social History Smoking and tobacco status: never smoked Alcohol intake: never Household members: spouse Housing: House Marital status: Current occupational status: disabled History of recent travel: No Course ED course: 40-year-old female checked out to me at shift change by Mr. Aaron PA-C. This patient has a history of pancreatitis. She presents with epigastric and abdominal pain, anorexia for the last few days. She actually tested positive for Covid as an outpatient 2 days ago. Chest x-ray shows possibly a minimal left-sided basilar infiltrate. It is somewhat apparent on CT scan as well. Her white blood cell count is 11.1. Her other laboratory is benign. CT shows mild pancreatitis with no pseudocyst or fluid collection. It appears improved from her prior scan here. She will be allowed home breakthrough pain m edication, antiemetics, etc. Vital Signs: Vital signs: Vital Signs Temperature 98.2 F 09/06/20 06:09 Pulse Rate 72 09/06/20 06:09 Respiratory Rate 18 09/06/20 06:09 Blood Pressure 108/64 09/06/20 06:09 Pulse Oximetry 96 09/06/20 06:09 MDM - Weakness Lab Data: Labs: Lab Results 09/06/20 09/06/20 09/06/20 Range/Units 01:13 01:13 02:15 WBC 11.1 H (4.0-10.0) 10^3/ uL RBC 4.95 (4.1-5.3) 10^6/u L Hgb 14.3 (11.5-15.3) g/dL Hct 45.4 (37.0-47.0) % MCV 91.7 (81-99) fL MCH 28.9 (28.0-34.0) pg MCHC 31.5 (30.0-36.0) g/dL RDW 14.7 (12.1-15.1) % Plt Count 258 (130-400) 10^3/c mm MPV 12.1 H (7.4-10.4) fL Neut % (Auto) 57.1 % Lymph % (Auto) 35.1 % [place] % (Auto) 6.0 % Eos % (Auto) 0.9 % Baso % (Auto) 0.6 % Neut # (Auto) 6.33 (1.8-7.7) 10^3/u L Lymph # (Auto) 3.9 (0.8-4.8) 10^3/u L [place] # (Auto) 0.7 (0.2-0.9) 10^3/u L Eos # (Auto) 0.1 (0.0-0.8) 10^3/u L Baso # (Auto) 0.1 (0.0-0.1) 10^3/u L Nucleated RBC % (a uto) 0 % Nucleated RBCs # 0.0 /100WBC Sodium 140 (136-145) mmol/L Potassium 4.3 (3.5-5.1) mmol/L Chloride 104 (98-107) mmol/L Carbon Dioxide 22 (22-29) mmol/L Anion Gap 18.3 (5-19) BUN 7 (6-20) mg/dL Creatinine 0.5 (0.5-0.9) mg/dL GFR Calculation 136.6 H (90-130) mL/min Glucose 173 H (65-115) mg/dL Calculated Osmolal ity 292 (285-295) mOsm/k g Calcium 9.4 (8.5-10.5) mg/dL Total Bilirubin 0.3 (0.15-1.2) mg/dL AST 20 (0-32) U/L ALT 8 (0-33) U/L Alkaline Phosphata se 83 (35-105) IU/L Total Protein 6.7 (6.6-8.7) g/dL Albumin 3.7 (3.5-5.2) g/dL Globulin 3.0 (1.3-4.6) g/dL Lipase 36 (13-60) U/L HCG, Qual Negative (Negative) Urine Color (Yellow) Urine Appearance (CLEAR) Urine pH (5-7) Ur Specific Gravit y (1.005-1.030) Urine Protein (Negative) Urine Glucose (UA) (Normal) Urine Ketones (Negative) Urine Blood (Negative) Urine Nitrate (Negative) Urine Bilirubin (Negative) Prot Sulfosalicyli c Acd (Negative) Urine Urobilinogen (Negative) mg/dL Ur Leukocyte Domitila ase (Negative) Urine RBC (0-2) /hpf Urine WBC (0-5) /hpf Ur Squamous Epith Cells (0-5) /hpf Ur Renal Epithelia l Cell /hpf Amorphous Sediment Urine Bacteria (NONE) /hpf 09/06/20 Range/Units 03:50 WBC (4.0-10.0) 10^3/ uL RBC (4.1-5.3) 10^6/u L Hgb (11.5-15.3) g/dL Hct (37.0-47.0) % MCV (81-99) fL MCH (28.0-34.0) pg MCHC (30.0-36.0) g/dL RDW (12.1-15.1) % Plt Count (130-400) 10^3/c mm MPV (7.4-10.4) fL Neut % (Auto) % Lymph % (Auto) % [place] % (Auto) % Eos % (Auto) % Baso % (Auto) % Neut # (Auto) (1.8-7.7) 10^3/u L Lymph # (Auto) (0.8-4.8) 10^3/u L [place] # (Auto) (0.2-0.9) 10^3/u L Eos # (Auto) (0.0-0.8) 10^3/u L Baso # (Auto) (0.0-0.1) 10^3/u L Nucleated RBC % (a uto) % Nucleated RBCs # /100WBC Sodium (136-145) mmol/L Potassium (3.5-5.1) mmol/L Chloride (98-107) mmol/L Carbon Dioxide (22-29) mmol/L Anion Gap (5-19) BUN (6-20) mg/dL Creatinine (0.5-0.9) mg/dL GFR Calculation (90-130) mL/min Glucose (65-115) mg/dL Calculated Osmolal ity (285-295) mOsm/k g Calcium (8.5-10.5) mg/dL Total Bilirubin (0.15-1.2) mg/dL AST (0-32) U/L ALT (0-33) U/L Alkaline Phosphata se (35-105) IU/L Total Protein (6.6-8.7) g/dL Albumin (3.5-5.2) g/dL Globulin (1.3-4.6) g/dL Lipase (13-60) U/L HCG, Qual (Negative) Urine Color Yellow (Yellow) Urine Appearance Cloudy (CLEAR) Urine pH 9 H (5-7) Ur Specific Gravit y 1.010 (1.005-1.030) Urine Protein Trace (Negative) Urine Glucose (UA) 2+ (Normal) Urine Ketones Negative (Negative) Urine Blood Neg (Negative) Urine Nitrate Negative (Negative) Urine Bilirubin Neg (Negative) Prot Sulfosalicyli c Acd Positive (Negative) Urine Urobilinogen 1 H (Negative) mg/dL Ur Leukocyte Domitila ase Negative (Negative) Urine RBC 0-4 H (0-2) /hpf Urine WBC None (0-5) /hpf Ur Squamous Epith Cells 80-100 H (0-5) /hpf Ur Renal Epithelia l Cell None /hpf Amorphous Sediment Not Reportable Urine Bacteria 1+ H (NONE) /hpf Discharge Plan Discharge Patient Disposition: Home Clinical Impression: Pneumonia due to COVID-19 virus Chronic pancreatitis Qualifiers: Pancreatitis type: other Qualified Code(s): K86.1 - Other chronic pancreatitis Condition: Stable Prescriptions: New Dilaudid 2 mg tablet 2 mg PO Q4H PRN (Reason: pain) Qty: 7 RF: 0 Zofran 4 mg tablet 4 mg PO Q6H PRN (Reason: nausea and vomiting) Qty: 10 RF: 0 No Action Briviact 25 mg tablet 25 mg PO DAILY RF: 0 Zofran 4 mg tablet 4 mg PO Q6H PRN (Reason: nausea and vomiting) Qty: 60 RF: 0 pantoprazole 40 mg tablet,delayed release (DR/EC) 40 mg PO BID Qty: 180 RF: 3 morphine 30 mg tablet extended release 30 mg PO Q12H 30 Days Qty: 60 RF: 0 furosemide 20 mg tablet 40 mg PO BID Qty: 120 RF: 3 tizanidine 4 mg tablet 8 mg PO TID PRN (Reason: muscle spasticity) 30 Days Qty: 180 RF: 3 ondansetron HCl 4 mg tablet 4 mg PO Q8H PRN (Reason: nausea and vomiting) Qty: 20 RF: 0 potassium chloride 10 mEq capsule, extended release 10 meq PO DAILY RF: 0 zolpidem 5 mg tablet 5 mg PO BEDTIME PRN (Reason: Sleep) RF: 0 hydrochlorothiazide 12.5 mg tablet 12.5 mg PO DAILY RF: 0 multivitamin with minerals [Hair,Skin and Nails] Tablet 1 tab PO DAILY RF: 0 PNV cmb#95-ferrous fumarate-FA [] 28 mg iron- 800 mcg Tablet 1 tab PO DAILY RF: 0 folic acid 1 cap PO DAILY RF: 0 Discharge Orders: Discharge ED (Routine); Ordered 09/06/20 Ordered By: Vishnu Alejo Referrals: Yony Otero MD [Primary Care Provider] - 1-3 days Discharge Diet: Clear Liquid Discharge Activity: Increase activity as tolerated Patient Instructions: Viral Pneumonia (ED), Pancreatitis (ED) Activity Restrictions/Additional Instructions: Use prescribed medication only for breakthrough pain. Take nausea medication scheduled every 6 hours for the next 36 hours, then as needed. Follow a clear liquid diet. Return for fever greater than 100, shortness of breath, vomiting liquids or medications despite treatment, other concerning symptoms. Coding Level of Care Code ED Allergy And Immunology Specialist for Heather Fwd Exam Comprehensive
--- NOTE | 2020-09-06 01:13 | XRR_ITS ---
PROCEDURE INFORMATION: Exam: XR Chest, 1 View Exam date and time: 09/06/2020 2:08 AM Age: 40 years old Clinical indication: Patient HX: General weakness. Covid +; Additional info: Cough TECHNIQUE: Imaging protocol: XR of the chest Views: 1 view. COMPARISON: CR XR chest 1V portable [id number] 07/24/2020 11:41 AM FINDINGS: Lungs: Few infiltrates are seen in the left base. No consolidation. Pleural space: Unremarkable. No pleural effusion. No pneumothorax. Heart/Mediastinum: Unremarkable. No cardiomegaly. Bones/joints: Unremarkable. XR/XR chest 1V portable [id number] IMPRESSION: Few infiltrates are seen in the left base.
--- NOTE | 2020-09-06 02:03 | PC.NURSE ---
Attempt x [address] IV and obtain lab unsuccessful
[2020-09-06] MEDS: iohexol 300 mg/mL 100 mL Btl IV (02:21)
[2020-09-06] MEDS: sodium chloride 0.9% 1,000 ML 999 ML IV (02:32)
[2020-09-06] MEDS: morphine 4 mg/mL SDV 1 mL 2 MG IVP (02:33)
[2020-09-06] MEDS: ondansetron 2 mg/ML SDV 2 mL 4 MG IVP (02:33)
[2020-09-06 02:48] LABS: Basophils # 0.1 10^3/uL (0.0-0.1); Basophils % 0.6 %; Eosinophils # 0.1 10^3/uL (0.0-0.8); Eosinophils % 0.9 %; Hematocrit 45.4 % (37.0-47.0); Hemoglobin 14.3 g/dL (11.5-15.3); Lymphocytes # 3.9 10^3/uL (0.8-4.8); Lymphocytes % 35.1 %; Mean Corpuscular HGB Conc 31.5 g/dL (30.0-36.0); Mean Corpuscular Hemoglobin 28.9 pg (28.0-34.0); Mean Corpuscular Volume 91.7 fL (81-99); Mean Platelet Volume 12.1 fL (7.4-10.4); Monocytes # 0.7 10^3/uL (0.2-0.9); Neutrophils # 6.33 10^3/uL (1.8-7.7); Neutrophils % 57.1 %; Nucleated Red Blood Cells % 0 %; Platelet Count 258 10^3/cmm (130-400); Red Blood Count 4.95 10^6/uL (4.1-5.3); Red Cell Distribution Width 14.7 % (12.1-15.1); White Blood Count 11.1 10^3/uL (4.0-10.0)
[2020-09-06] MEDS: metoclopramide 5 mg/mL SDV 2 mL 10 MG IVP (03:05)
[2020-09-06 03:11] LABS: HCG, Serum Qual Negative (Negative)
[2020-09-06] MEDS: HYDROmorphone 1 mg/mL INJ 1 mL IVP (03:42)
[2020-09-06 04:20] LABS: Alanine Aminotransferase 8 U/L (0-33); Albumin Level 3.7 g/dL (3.5-5.2); Alkaline Phosphatase 83 IU/L (35-105); Aspartate Amino Transferase 20 U/L (0-32); Blood Urea Nitrogen 7 mg/dL (6-20); Calcium 9.4 mg/dL (8.5-10.5); Carbon Dioxide 22 mmol/L (22-29); Chloride 104 mmol/L (98-107); Glomerular Filtration Rate 136.6 mL/min (90-130); Glucose 173 mg/dL (65-115); Lipase 36 U/L (13-60); Osmolality Calculated 292 mOsm/kg (285-295); Sodium 140 mmol/L (136-145); Total Bilirubin 0.3 mg/dL (0.15-1.2); Total Protein 6.7 g/dL (6.6-8.7)
[2020-09-06 04:49] LABS: Anion Gap 18.3 (5-19); Potassium 4.3 mmol/L (3.5-5.1)
[2020-09-06 05:02] LABS: Bilirubin Urine Neg (Negative); Blood Urine Neg (Negative); Glucose Urine UA 2+ (Normal); Ketones Urine Negative (Negative); Leukocyte Esterase Urine Negative (Negative); Nitrate Urine Negative (Negative); Protein Urine Trace (Negative); Sulfosalicylic Acid Urine Positive (Negative); Urine Appearance Cloudy (CLEAR); Urine Color Yellow (Yellow); Urobilinogen Urine 1 mg/dL (Negative); pH Urine 9 (5-7)
[2020-09-06 05:27] LABS: Add Urine Culture? No; Bacteria Urine 1+ /hpf; RBC Urine 0-4 /hpf (0-2); Squamous Epithelial Cell Urine 80-100 /hpf (0-5)
--- NOTE | 2020-09-06 05:38 | PC.NURSE ---
spoke with update given plan for discharge
== END 2020-09-06 06:05 | disposition home or self-care (01) ==
PROVIDERS: Physician Assistant; Emergency Provider Emergency Medicine; PCP Internal Medicine
DX: U07.1 COVID-19 (principal); J12.89 Other viral pneumonia; K86.1 Other chronic pancreatitis; E11.9 Type 2 diabetes mellitus without complications; I10 Essential (primary) hypertension
CPT/HCPCS: 12345; 71045; 74177; 80053; 81001; 83690; 84703; 85025; 96361; 96374; 96375; 99283; J1170; J2270; J2405; J2765; J7030; Q9967

== ENCOUNTER 2020-09-15 01:35 | Emergency (ER) | payer MEDICARE, MEDICAID, SELFPAY ==
[2020-09-15 01:36] VITALS: BP 177/135; PULSE 130; RESP 22; TEMP 37.3; O2SAT 98; BMI 29.2
--- NOTE | 2020-09-15 01:41 | ECG_ITS ---
[facility] Test Date: 2020-09-15 Pat Name: Eleanor Ragland Department: Room: Gender: Female Research Development Manager: driss : 1980 Requested By: Vishnu Perez Order Number: [id number] Dianna MD: Sola Espitia M.D. Measurements Intervals [place] Rate: 124 P: 61 TN: 136 QRS: -7 QRSD: 92 T: 177 QT: 307 QTc: 442 Interpretive Statements SINUS TACHYCARDIA LEFT VENTRICULAR HYPERTROPHY AND ST-T CHANGE INFERIOR MYOCARDIAL INFARCTION, PROBABLY OLD Compared to ECG 08/06/2020 17:01:09 Left ventricular hypertrophy now present ST (T wave) deviation now present Sinus rhythm no longer present Short TN interval no longer present T-wave abnormality no longer present Possible ischemia no longer present Myocardial infarct finding still present Electronically Signed On 09-16-2020 19:48:11 EL TEACHER by Sola Espitia M.D. [email or web address]/[id number] f
--- NOTE | 2020-09-15 01:41 | CTR_ITS ---
PROCEDURE INFORMATION: Exam: CT Angiography Chest With Contrast Exam date and time: 09/15/2020 1:48 AM Age: 40 years old Clinical indication: Right-sided chest pain; Additional info: Cp TECHNIQUE: Imaging protocol: Computed tomographic angiography of the chest with intravenous contrast. 3D rendering (Not supervised by radiologist): MIP and/or 3D reconstructed images were created by the technologist. Radiation optimization: All CT scans at this facility use at least one of these dose optimization techniques: automated exposure control; mA and/or kV adjustment per patient size (includes targeted exams where dose is matched to clinical indication); or iterative reconstruction. Contrast material: OMNI 350; Contrast volume: 95 ml; Contrast route: INTRAVENOUS (IV); COMPARISON: CR XR chest 1V portable [id number] 09/06/2020 1:57 AM RADIATION DOSE METRICS: Total DLP (mGy-cm): 571.69 FINDINGS: Pulmonary arteries: Normal. No pulmonary emboli. Aorta: Unremarkable. No aortic aneurysm. No aortic dissection. Lungs: Unremarkable. No consolidation. No masses. Pleural space: Unremarkable. No pneumothorax. No pleural effusion. Heart: Unremarkable. No cardiomegaly. No pericardial effusion. Lymph nodes: Unremarkable. No enlarged lymph nodes. Gallbladder and bile ducts: Status post cholecystectomy. Pancreas: There are some diffuse haziness seen adjacent to the pancreatic head, findings that could represent mild inflammatory changes and pancreatitis. Adrenals: There is a 1.3 x 1.7 x 1.9 cm left adrenal mass present. Kidneys and ureters: Mild bilateral persistent lobulation of the kidneys. Bones/joints: Unremarkable. No acute fracture. Soft tissues: Unremarkable. CT/CT angio chest PE protcl [id number] IMPRESSION: 1. There is no evidence for pulmonary emboli. 2. Haziness seen adjacent to the pancreatic head, findings that could represent mild inflammatory changes and pancreatitis. 3. Left adrenal mass measuring up to 1.9 cm. This appears stable compared with 07/17/2020. Follow-up CT examination of the drill aunts could be obtained in 9-12 months. Radiation Dose CTDIVOL = (mGy): DLP = 571.69 (mGy-cm)
[2020-09-15 02:09] LABS: Basophils # 0.1 10^3/uL (0.0-0.1); Basophils % 0.5 %; Eosinophils % 0.1 %; Hematocrit 51.5 % (37.0-47.0); Hemoglobin 16.7 g/dL (11.5-15.3); Lymphocytes # 2.4 10^3/uL (0.8-4.8); Lymphocytes % 18.8 %; Mean Corpuscular HGB Conc 32.4 g/dL (30.0-36.0); Mean Corpuscular Volume 89.6 fL (81-99); Mean Platelet Volume 12.3 fL (7.4-10.4); Monocytes # 0.5 10^3/uL (0.2-0.9); Monocytes % 3.8 %; Neutrophils # 9.78 10^3/uL (1.8-7.7); Neutrophils % 76.5 %; Nucleated Red Blood Cells % 0 %; Platelet Count 335 10^3/cmm (130-400); Red Blood Count 5.75 10^6/uL (4.1-5.3); Red Cell Distribution Width 14.3 % (12.1-15.1); White Blood Count 12.8 10^3/uL (4.0-10.0)
[2020-09-15] MEDS: iohexol 350 mg/mL 100 mL Btl IV (02:09)
[2020-09-15] MEDS: sodium chloride 0.9% 500 ML 999 ML IV (02:30)
[2020-09-15 02:37] LABS: Troponin(5th) Baseline 16 ng/L (0-10)
[2020-09-15 02:44] VITALS: RESP 17; O2SAT 97
[2020-09-15] MEDS: fentaNYL 50 mcg/mL INJ 2mL 100 MCG IVP (02:44)
[2020-09-15] MEDS: ondansetron 2 mg/ML SDV 2 mL 4 MG IVP (02:45)
[2020-09-15 02:47] VITALS: BP 126/77; PULSE 116; RESP 17; O2SAT 97
[2020-09-15 02:47] LABS: NT Pro B Type Natriuretic Pept 1752 pg/mL (0-125); Procalcitonin 0.16 ng/mL (0-0.5)
[2020-09-15 02:59] LABS: Alanine Aminotransferase 9 U/L (0-33); Albumin Level 4.5 g/dL (3.5-5.2); Alkaline Phosphatase 139 IU/L (35-105); Anion Gap 25.4 (5-19); Aspartate Amino Transferase 18 U/L (0-32); Blood Urea Nitrogen 14 mg/dL (6-20); C Reactive Protein 28.6 mg/L (0.0-4.9); Calcium 10.3 mg/dL (8.5-10.5); Carbon Dioxide 22 mmol/L (22-29); Chloride 94 mmol/L (98-107); Creatine Phosphokinase 81 U/L (26-192); Globulin 3.4 g/dL (1.3-4.6); Glomerular Filtration Rate 61.4 mL/min (90-130); Glucose 191 mg/dL (65-115); Lactate Dehydrogenase 242 U/L (135-214); Lipase 22 U/L (13-60); Osmolality Calculated 292 mOsm/kg (285-295); Potassium 3.4 mmol/L (3.5-5.1); Sodium 138 mmol/L (136-145); Total Bilirubin 0.5 mg/dL (0.15-1.2); Total Protein 7.9 g/dL (6.6-8.7)
[2020-09-15 03:00] LABS: D Dimer 0.61 ug/mIFEU (0-0.59)
--- NOTE | 2020-09-15 03:33 | ED_ITS ---
HPI - Chest Pain General: Chief Complaint: Chest Pain Stated Complaint: CP Time Seen by Provider: 09/15/20 01:38 History of Present Illness: HPI narrative: 40-year-old female who tested positive for COVID-19 on September 03. She had had symptoms since August 31. She presents with chest discomfort. She also has nausea, some shortness of breath, epigastric pain. She notes that she has been vomiting, not been able to eat well. She has been losing weight. She has a history of chronic pancreatitis, and is on quite a bit of pain medicine daily. Associated symptoms: Reports abdominal pain, dyspnea, fever(s), nausea and vomiting; Deny palpitations Review of Systems Const: Reports: fever(s), chills and body aches ENMT: Reports: nasal congestion; Denies: throat pain or swelling of lips/tongue Card: Reports: chest pain; Denies: palpitations, irregular heart rhythm or edema Resp: Reports: dyspnea and non-productive cough; Denies: productive cough GI: Reports: abdominal pain, nausea and vomiting Neuro: Reports: headache(s) PFSH ED PFSH: Medical History (Updated 09/15/20 @ 04:40 by Vishnu Alejo DO) Chronic pain of lower extremity, bilateral 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 Diabetes Epilepsy Essential (primary) hypertension Primary osteoarthritis Surgical History History of bilateral knee replacement History of cholecystectomy History of D&C 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 Family History Grandmother Cancer Lung disease Stroke Mother Lung disease Other A-fib CHF (congestive heart failure) Social History Smoking and tobacco status: never smoked Alcohol intake: never Household members: spouse Housing: House Marital status: Current occupational status: disabled History of recent travel: No Physical Exam Const: GENERAL APPEARANCE: ill appearing and appears older than stated age HENMT: COMMON NORMALS: normocephalic HEAD & SCALP: normocephalic Chest: COMMONS NORMALS: normal inspection of the chest Resp: COMMON NORMALS: normal respiratory effort, No retractions, No use of accessory muscles and clear to auscultation bilaterally AUSCULTATION: clear to auscultation bilaterally Cardio: COMMON NORMALS: regular rhythm RATE: tachycardic RHYTHM: regular rhythm GI: COMMON NORMALS: Soft to palpation INSPECTION: Yes normal to inspection PALPATION: Yes Soft to palpation and Yes Tenderness to palpation present (GI) (epigastric) Course Vital Signs: Vital signs: Vital Signs Temperature 99.1 F 09/15/20 01:36 Pulse Rate 110 H 09/15/20 05:51 Respiratory Rate 18 09/15/20 05:51 Blood Pressure 134/98 09/15/20 05:51 Pulse Oximetry 98 09/15/20 05:51 MDM - Chest Pain MDM Narrative: Medical decision making narrative: 40-year-old female who was diagnosed with COVID-19 with symptom onset of 08/31. She presents complaining of chest pain. Her white blood cell count is 12.8. Hemoglobin 16. Her D-dimer was slightly elevated, and she was mildly tachycardic on presentation. CTA shows no infiltrates, no pulmonary emboli. He is oxygenating fine on room air. Her troponin was minimally elevated at x0, but did not change at time 2 hours. Her EKG showed no acute ST wave changes. She will be allowed home with symptomatic treatment. Lab Data: Labs: Lab Results 09/15/20 09/15/20 09/15/20 Range/Units 01:56 01:56 01:56 WBC 12.8 H (4.0-10.0) 10^3/ uL RBC 5.75 H (4.1-5.3) 10^6/u L Hgb 16.7 H (11.5-15.3) g/dL Hct 51.5 H (37.0-47.0) % MCV 89.6 (81-99) fL MCH 29.0 (28.0-34.0) pg MCHC 32.4 (30.0-36.0) g/dL RDW 14.3 (12.1-15.1) % Plt Count 335 (130-400) 10^3/c mm MPV 12.3 H (7.4-10.4) fL Neut % (Auto) 76.5 % Lymph % (Auto) 18.8 % [place] % (Auto) 3.8 % Eos % (Auto) 0.1 % Baso % (Auto) 0.5 % Neut # (Auto) 9.78 H (1.8-7.7) 10^3/u L Lymph # (Auto) 2.4 (0.8-4.8) 10^3/u L [place] # (Auto) 0.5 (0.2-0.9) 10^3/u L Eos # (Auto) 0.0 (0.0-0.8) 10^3/u L Baso # (Auto) 0.1 (0.0-0.1) 10^3/u L Nucleated RBC % (a uto) 0 % Nucleated RBCs # 0.0 /100WBC D-Dimer 0.61 H (0-0.59) ug/mIFE U Sodium 138 (136-145) mmol/L Potassium 3.4 L (3.5-5.1) mmol/L Chloride 94 L (98-107) mmol/L Carbon Dioxide 22 (22-29) mmol/L Anion Gap 25.4 H (5-19) BUN 14 (6-20) mg/dL Creatinine 1.0 H (0.5-0.9) mg/dL GFR Calculation 61.4 L (90-130) mL/min Glucose 191 H (65-115) mg/dL Calculated Osmolal ity 292 (285-295) mOsm/k g Calcium 10.3 (8.5-10.5) mg/dL Total Bilirubin 0.5 (0.15-1.2) mg/dL AST 18 (0-32) U/L ALT 9 (0-33) U/L Alkaline Phosphata se 139 H (35-105) IU/L Lactate Dehydrogen ase 242 H (135-214) U/L Creatine Kinase 81 (26-192) U/L Troponin T Baselin e (0-10) ng/L Troponin T 120 Min [place] (0-10) ng/L Delta Troponin T (0-10) ABS# C-Reactive Protein 28.6 H (0.0-4.9) mg/L NT-Pro-B Natriuret Pep 1752 H (0-125) pg/mL Total Protein 7.9 (6.6-8.7) g/dL Albumin 4.5 (3.5-5.2) g/dL Globulin 3.4 (1.3-4.6) g/dL Lipase 22 (13-60) U/L Procalcitonin 0.16 (0-0.5) ng/mL Urine Color (Yellow) Urine Appearance (CLEAR) Urine pH (5-7) Ur Specific Gravit y (1.005-1.030) Urine Protein (Negative) Urine Glucose (UA) (Normal) Urine Ketones (Negative) Urine Blood (Negative) Urine Nitrate (Negative) Urine Bilirubin (Negative) Urine Urobilinogen (Negative) mg/dL Ur Leukocyte Domitila ase (Negative) Urine Opiates Scre en (Negative) ng/mL Ur Barbiturates Sc reen (Negative) ng/mL Ur Phencyclidine S crn (Negative) ng/mL Ur Amphetamines Sc reen (Negative) ng/mL U Benzodiazepines Scrn (Negative) ng/mL Urine Cocaine Scre en (Negative) ng/mL U Marijuana (THC) Screen (Negative) ng/mL 09/15/20 09/15/20 09/15/20 Range/Units 01:56 03:41 04:00 WBC (4.0-10.0) 10^3/ uL RBC (4.1-5.3) 10^6/u L Hgb (11.5-15.3) g/dL Hct (37.0-47.0) % MCV (81-99) fL MCH (28.0-34.0) pg MCHC (30.0-36.0) g/dL RDW (12.1-15.1) % Plt Count (130-400) 10^3/c mm MPV (7.4-10.4) fL Neut % (Auto) % Lymph % (Auto) % [place] % (Auto) % Eos % (Auto) % Baso % (Auto) % Neut # (Auto) (1.8-7.7) 10^3/u L Lymph # (Auto) (0.8-4.8) 10^3/u L [place] # (Auto) (0.2-0.9) 10^3/u L Eos # (Auto) (0.0-0.8) 10^3/u L Baso # (Auto) (0.0-0.1) 10^3/u L Nucleated RBC % (a uto) % Nucleated RBCs # /100WBC D-Dimer (0-0.59) ug/mIFE U Sodium (136-145) mmol/L Potassium (3.5-5.1) mmol/L Chloride (98-107) mmol/L Carbon Dioxide (22-29) mmol/L Anion Gap (5-19) BUN (6-20) mg/dL Creatinine (0.5-0.9) mg/dL GFR Calculation (90-130) mL/min Glucose (65-115) mg/dL Calculated Osmolal ity (285-295) mOsm/k g Calcium (8.5-10.5) mg/dL Total Bilirubin (0.15-1.2) mg/dL AST (0-32) U/L ALT (0-33) U/L Alkaline Phosphata se (35-105) IU/L Lactate Dehydrogen ase (135-214) U/L Creatine Kinase (26-192) U/L Troponin T Baselin e 16 H (0-10) ng/L Troponin T 120 Min [place] 14.79 H (0-10) ng/L Delta Troponin T -1.21 L (0-10) ABS# C-Reactive Protein (0.0-4.9) mg/L NT-Pro-B Natriuret Pep (0-125) pg/mL Total Protein (6.6-8.7) g/dL Albumin (3.5-5.2) g/dL Globulin (1.3-4.6) g/dL Lipase (13-60) U/L Procalcitonin (0-0.5) ng/mL Urine Color Yellow (Yellow) Urine Appearance Clear (CLEAR) Urine pH 7 (5-7) Ur Specific Gravit y 1.010 (1.005-1.030) Urine Protein Neg (Negative) Urine Glucose (UA) Norm (Normal) Urine Ketones Negative (Negative) Urine Blood Neg (Negative) Urine Nitrate Negative (Negative) Urine Bilirubin Neg (Negative) Urine Urobilinogen Norm (Negative) mg/dL Ur Leukocyte Odmitila ase Negative (Negative) Urine Opiates Scre en (Negative) ng/mL Ur Barbiturates Sc reen (Negative) ng/mL Ur Phencyclidine S crn (Negative) ng/mL Ur Amphetamines Sc reen (Negative) ng/mL U Benzodiazepines Scrn (Negative) ng/mL Urine Cocaine Scre en (Negative) ng/mL U Marijuana (THC) Screen (Negative) ng/mL 09/15/20 Range/Units 04:00 WBC (4.0-10.0) 10^3/ uL RBC (4.1-5.3) 10^6/u L Hgb (11.5-15.3) g/dL Hct (37.0-47.0) % MCV (81-99) fL MCH (28.0-34.0) pg MCHC (30.0-36.0) g/dL RDW (12.1-15.1) % Plt Count (130-400) 10^3/c mm MPV (7.4-10.4) fL Neut % (Auto) % Lymph % (Auto) % [place] % (Auto) % Eos % (Auto) % Baso % (Auto) % Neut # (Auto) (1.8-7.7) 10^3/u L Lymph # (Auto) (0.8-4.8) 10^3/u L [place] # (Auto) (0.2-0.9) 10^3/u L Eos # (Auto) (0.0-0.8) 10^3/u L Baso # (Auto) (0.0-0.1) 10^3/u L Nucleated RBC % (a uto) % Nucleated RBCs # /100WBC D-Dimer (0-0.59) ug/mIFE U Sodium (136-145) mmol/L Potassium (3.5-5.1) mmol/L Chloride (98-107) mmol/L Carbon Dioxide (22-29) mmol/L Anion Gap (5-19) BUN (6-20) mg/dL Creatinine (0.5-0.9) mg/dL GFR Calculation (90-130) mL/min Glucose (65-115) mg/dL Calculated Osmolal ity (285-295) mOsm/k g Calcium (8.5-10.5) mg/dL Total Bilirubin (0.15-1.2) mg/dL AST (0-32) U/L ALT (0-33) U/L Alkaline Phosphata se (35-105) IU/L Lactate Dehydrogen ase (135-214) U/L Creatine Kinase (26-192) U/L Troponin T Baselin e (0-10) ng/L Troponin T 120 Min [place] (0-10) ng/L Delta Troponin T (0-10) ABS# C-Reactive Protein (0.0-4.9) mg/L NT-Pro-B Natriuret Pep (0-125) pg/mL Total Protein (6.6-8.7) g/dL Albumin (3.5-5.2) g/dL Globulin (1.3-4.6) g/dL Lipase (13-60) U/L Procalcitonin (0-0.5) ng/mL Urine Color (Yellow) Urine Appearance (CLEAR) Urine pH (5-7) Ur Specific Gravit y (1.005-1.030) Urine Protein (Negative) Urine Glucose (UA) (Normal) Urine Ketones (Negative) Urine Blood (Negative) Urine Nitrate (Negative) Urine Bilirubin (Negative) Urine Urobilinogen (Negative) mg/dL Ur Leukocyte Domitila ase (Negative) Urine Opiates Scre en Positive H (Negative) ng/mL Ur Barbiturates Sc reen Negative (Negative) ng/mL Ur Phencyclidine S crn Negative (Negative) ng/mL Ur Amphetamines Sc reen Negative (Negative) ng/mL U Benzodiazepines Scrn Negative (Negative) ng/mL Urine Cocaine Scre en Negative (Negative) ng/mL U Marijuana (THC) Screen Negative (Negative) ng/mL Discharge Plan Discharge Patient Disposition: Home Clinical Impression: Chest pain Qualifiers: Chest pain type: unspecified Qualified Code(s): R07.9 - Chest pain, unspecified Condition: Stable Prescriptions: Continued Zofran 4 mg tablet 4 mg PO Q6H PRN (Reason: nausea and vomiting) Qty: 20 RF: 0 No Action Briviact 25 mg tablet 25 mg PO DAILY RF: 0 pantoprazole 40 mg tablet,delayed release (DR/EC) 40 mg PO BID Qty: 180 RF: 3 morphine 30 mg tablet extended release 30 mg PO Q12H 30 Days Qty: 60 RF: 0 furosemide 20 mg tablet 40 mg PO BID Qty: 120 RF: 3 tizanidine 4 mg tablet 8 mg PO TID PRN (Reason: muscle spasticity) 30 Days Qty: 180 RF: 3 ondansetron HCl 4 mg tablet 4 mg PO Q8H PRN (Reason: nausea and vomiting) Qty: 20 RF: 0 potassium chloride 10 mEq capsule, extended release 10 meq PO DAILY RF: 0 zolpidem 5 mg tablet 5 mg PO BEDTIME PRN (Reason: Sleep) RF: 0 hydrochlorothiazide 12.5 mg tablet 12.5 mg PO DAILY RF: 0 multivitamin with minerals [Hair,Skin and Nails] Tablet 1 tab PO DAILY RF: 0 PNV cmb#95-ferrous fumarate-FA [] 28 mg iron- 800 mcg Tablet 1 tab PO DAILY RF: 0 folic acid 1 cap PO DAILY RF: 0 Dilaudid 2 mg tablet 2 mg PO Q4H PRN (Reason: pain) Qty: 7 RF: 0 Zofran 4 mg tablet 4 mg PO Q6H PRN (Reason: nausea and vomiting) Qty: 10 RF: 0 Discharge Orders: Discharge ED (Routine); Ordered 09/15/20 Ordered By: Vishnu Alejo Referrals: Yony Otero MD [Primary Care Provider] - 1-3 days Discharge Diet: Advance as tolerated and Clear Liquid Discharge Activity: Increase activity as tolerated Patient Instructions: Chest Pain (ED) Activity Restrictions/Additional Instructions: Follow a liquid diet for the next 24 hours, then advance as tolerated. See your doctor in 1 to 2 days for follow-up. Coding Level of Care Code ED Urology Surgeon for Yraag Fwd Exam Detailed
[2020-09-15] MEDS: sodium chloride 0.9% 1,000 ML 999 ML IV (03:34)
--- NOTE | 2020-09-15 03:41 | ECG_ITS ---
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 Measurements Intervals [place] Rate: 100 P: 28 WV: 145 QRS: 37 QRSD: 81 T: 200 QT: 388 QTc: 501 Interpretive Statements SINUS TACHYCARDIA POSSIBLE LEFT ATRIAL ENLARGEMENT [-0.1mV P WAVE IN V1/V2] ST DEVIATION AND MODERATE T-WAVE ABNORMALITY, CONSIDER ANTEROLATERAL ISCHEMIA [-0.1+ mV T WAVE IN V3-V6] ST DEVIATION AND MODERATE T-WAVE ABNORMALITY, CONSIDER INFERIOR ISCHEMIA [-0.1+ mV T WAVE IN II/aVF] Compared to ECG 09/15/2020 01:45:50 T-wave abnormality now present Possible ischemia now present Left ventricular hypertrophy no longer present ST (T wave) deviation no longer present Myocardial infarct finding no longer present Electronically Signed On 09-16-2020 20:33:28 WOOD STRIP BLOCK FLOOR INSTALLER by Sola Espitia M.D. [id number]
[2020-09-15 04:00] VITALS: BP 134/77; PULSE 100; RESP 19; O2SAT 100
[2020-09-15 04:03] VITALS: RESP 19; O2SAT 100
[2020-09-15] MEDS: HYDROmorphone 1 mg/mL INJ 1 mL IVP (04:03)
[2020-09-15 04:07] LABS: Add Urine Microscopic? NO
[2020-09-15 04:09] LABS: Bilirubin Urine Neg (Negative); Blood Urine Neg (Negative); Glucose Urine UA Norm (Normal); Ketones Urine Negative (Negative); Leukocyte Esterase Urine Negative (Negative); Nitrate Urine Negative (Negative); Protein Urine Neg (Negative); Urine Appearance Clear (CLEAR); Urine Color Yellow (Yellow); Urobilinogen Urine Norm (Negative); pH Urine 7 (5-7)
[2020-09-15 04:18] LABS: Amphetamines Screen Urine Negative (Negative); Barbiturates Screen Urine Negative (Negative); Benzodiazepines Screen Urine Negative (Negative); Cocaine Screen Urine Negative (Negative); Opiate Screen Urine Positive (Negative); PCP Screen Urine Negative (Negative); THC Screen Urine Negative (Negative)
[2020-09-15 04:19] LABS: Troponin 5 2HR 14.79 ng/L (0-10)
[2020-09-15 04:24] LABS: Troponin 5 2HR Delta -1.21 ABS# (0-10)
--- NOTE | 2020-09-15 05:03 | PC.NURSE ---
Attempted to discuss discharge instructions with pt when pt stated my is coming to pick me up and wants to talk to the physician before I'll sign anything. ED physician notified.
[2020-09-15 05:51] VITALS: BP 134/98; PULSE 110; RESP 18; O2SAT 98
== END 2020-09-15 05:51 | disposition home or self-care (01) ==
PROVIDERS: Emergency Provider Emergency Medicine; PCP Internal Medicine
DX: R07.9 Chest pain, unspecified (principal); E11.9 Type 2 diabetes mellitus without complications; I10 Essential (primary) hypertension; Z79.899 Other long term (current) drug therapy
CPT/HCPCS: 12345; 71275; 80053; 80306; 81003; 82550; 83615; 83690; 83880; 84145; 84484; 85025; 85378; 86140; 93005; 96361; 96374; 96375; 99283; 99284; J1170; J2405; J3010; J7030; J7040; Q9967

== ENCOUNTER 2020-10-19 19:48 | Emergency (ER) | payer MEDICARE, MEDICAID, SELFPAY ==
[2020-10-19 20:24] VITALS: PULSE 128; RESP 22; TEMP 36.3; O2SAT 94; BMI 28.9
== END 2020-10-19 21:38 | disposition left against medical advice (07) ==
LOC: ER 20:06
PROVIDERS: Emergency Provider Family Medicine; PCP Internal Medicine
DX: Z53.21 Procedure and treatment not carried out due to patient leaving prior to being seen by health care provider (principal)
CPT/HCPCS: 99281

== ENCOUNTER 2020-10-20 05:30 | Inpatient (IN) | payer MEDICARE, MEDICAID, SELFPAY ==
[2020-10-20] VITALS (81 sets, daily range): BP systolic 113–190; BP diastolic 92–131; PULSE 99–153; RESP 6–30; TEMP 36.6; O2SAT 74–99; BMI 28.9
--- NOTE | 2020-10-20 05:45 | CTR_ITS ---
PROCEDURE INFORMATION: Exam: CT Abdomen And Pelvis With Contrast Exam date and time: 10/20/2020 5:57 AM Age: 40 years old Clinical indication: Abdominal pain; Epigastric; Prior surgery; Surgery date: 6+ months; Surgery type: Gb; Additional info: Epigastric pain TECHNIQUE: Imaging protocol: Computed tomography of the abdomen and pelvis with intravenous contrast. Radiation optimization: All CT scans at this facility use at least one of these dose optimization techniques: automated exposure control; mA and/or kV adjustment per patient size (includes targeted exams where dose is matched to clinical indication); or iterative reconstruction. Contrast material: OMNI 300; Contrast volume: 95 ml; Contrast route: INTRAVENOUS (IV); COMPARISON: CT abdomen pelvis w con* [id number] 09/06/2020 2:10 AM RADIATION DOSE METRICS: Total DLP (mGy-cm): 787.96 FINDINGS: Liver: Unremarkable. Gallbladder and bile ducts: Status post cholecystectomy. Pancreas: Unremarkable. Spleen: Small calcified granuloma noted in the spleen. Adrenal glands: There is a 2 cm x 1.6 cm mass in the left adrenal gland on series 3, image 23 with density 56 Hounsfield units. Etiology is indeterminate. This finding is similar to prior study. Kidneys and ureters: The kidneys are unremarkable. No renal stones identified. No hydronephrosis on either side. Stomach and bowel: No bowel obstruction identified. No diverticulitis identified. Appendix: A normal-appearing appendix is seen in the right hemipelvis. Intraperitoneal space: No free intraperitoneal air identified. Trace free fluid in the pelvis, which may be physiologic. Vasculature: No abdominal aortic aneurysm. Lymph nodes: Unremarkable. Urinary bladder: Unremarkable as visualized. Reproductive: Unremarkable as visualized. Bones/joints: Unremarkable. No acute fracture. Soft tissues: Unremarkable. CT/CT abdomen pelvis w con* [id number] IMPRESSION: 1. No acute intra-abdominal/intrapelvic process identified. 2. Indeterminate left adrenal mass, similar to prior study. Radiation Dose CTDIVOL = (mGy): DLP = 787.96 (mGy-cm)
--- NOTE | 2020-10-20 05:45 | XR_ITS ---
WS: [id number] PORTABLE CHEST HISTORY: tachycardia COMPARISON: 09/06/2020 Lung volumes are decreased. Mild haziness throughout both lungs may be due to the poor inspiration. S uperimposed pneumonitis may appear similar. No pleural effusion or pneumothorax. Cardiac size: Normal. Mediastinum/Aorta: Normal mediastinum. No osseous abnormality seen. XR/XR chest 1V portable [id number] IMPRESSION: Low lung volumes due to poor inspiration. Superimposed pneumonitis on the poor inspiration cannot be completely excluded.
[2020-10-20] MEDS: ondansetron 2 mg/ML SDV 2 mL 4 MG IVP ×2 (05:55→17:54)
[2020-10-20 05:57] LABS: Basophils # 0.1 10^3/uL (0.0-0.1); Basophils % 0.3 %; Hematocrit 54.5 % (37.0-47.0); Hemoglobin 18.2 g/dL (11.5-15.3); Lymphocytes # 3.6 10^3/uL (0.8-4.8); Lymphocytes % 15.5 %; Mean Corpuscular HGB Conc 33.4 g/dL (30.0-36.0); Mean Corpuscular Hemoglobin 29.8 pg (28.0-34.0); Mean Corpuscular Volume 89.3 fL (81-99); Mean Platelet Volume 11.6 fL (7.4-10.4); Monocytes # 1.2 10^3/uL (0.2-0.9); Monocytes % 4.9 %; Neutrophils # 18.45 10^3/uL (1.8-7.7); Neutrophils % 78.7 %; Nucleated Red Blood Cells % 0 %; Platelet Count 502 10^3/cmm (130-400); Red Cell Distribution Width 14.2 % (12.1-15.1); White Blood Count 23.5 10^3/uL (4.0-10.0)
[2020-10-20] MEDS: HYDROmorphone 1 mg/mL INJ 1 mL IVP ×4 (05:57→23:18)
[2020-10-20] MEDS: sodium chloride 0.9% 1,000 ML 999 ML IV (06:02)
[2020-10-20] MEDS: labetalol 5 mg/mL SDV 20mL 20 MG IVP (06:02)
[2020-10-20 06:09] LABS: Lactate (Lactic Acid level) 7.4 mmol/L (0.5-2.2)
--- NOTE | 2020-10-20 06:16 | ECG_ITS ---
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 Measurements Intervals [place] Rate: 139 P: 81 MO: 149 QRS: -12 QRSD: 89 T: 76 QT: 329 QTc: 501 Interpretive Statements SINUS TACHYCARDIA LEFT VENTRICULAR HYPERTROPHY AND ST-T CHANGE [VOLTAGE CRITERIA PLUS ST/T ABNORMALITY] INFERIOR MYOCARDIAL INFARCTION , PROBABLY OLD [40+ ms Q WAVE AND/OR ST/T ABNORMALITY IN II/aVF] Compared to ECG 09/15/2020 03:37:16 Left ventricular hypertrophy now present ST (T wave) deviation now present Myocardial infarct finding now present T-wave abnormality no longer present Possible ischemia no longer present Electronically Signed On 10-20-2020 18:43:22 CEREAL POPPER by Дмитрий Brito M.D. [id number]
[2020-10-20 06:17] LABS: Alanine Aminotransferase 13 U/L (0-33); Albumin Level 4.8 g/dL (3.5-5.2); Alkaline Phosphatase 130 IU/L (35-105); Anion Gap 27.1 (5-19); Aspartate Amino Transferase 22 U/L (0-32); Blood Urea Nitrogen 16 mg/dL (6-20); C Reactive Protein 36.6 mg/L (0.0-4.9); Calcium 10.8 mg/dL (8.5-10.5); Carbon Dioxide 22 mmol/L (22-29); Chloride 97 mmol/L (98-107); Globulin 4.2 g/dL (1.3-4.6); Glomerular Filtration Rate 41.6 mL/min (90-130); Glucose 223 mg/dL (65-115); Lipase 27 U/L (13-60); Magnesium 1.7 mg/dL (1.7-2.3); Osmolality Calculated 304 mOsm/kg (285-295); Potassium 3.1 mmol/L (3.5-5.1); Sodium 143 mmol/L (136-145); Total Bilirubin 0.7 mg/dL (0.15-1.2)
[2020-10-20 06:18] LABS: Alcohol Level < 10 mg/dL (0-10)
[2020-10-20] MEDS: pantoprazole 40 MG in sodium chloride 0.9% (plus) 100 ML 20 MG IV (06:27)
--- NOTE | 2020-10-20 06:29 | PC.NURSE ---
pt to CT
[2020-10-20] MEDS: iohexol 300 mg/mL 100 mL Btl IV (06:43)
[2020-10-20 06:49] LABS: INR 1.08 (0.8-1.2); Partial Thromboplastin Time 28.9 SECONDS (23.9-36.7)
[2020-10-20] MEDS: pantoprazole 40 mg SDV 80 MG IVP (06:50)
[2020-10-20 06:55] LABS: ABG PCO2 33.2 mmHg (35-45); ABG PH Result 7.47 (7.35-7.45); Base Excess ABG 0.9 mmol/L (-2.0-2.0); Blood Gas Operator Identificat HARKR; Blood Gas Sample Site Brachial, left; Blood Gas Sample Type Arterial; HCO3 ABG 23.9 mmol/L (22-26); HGB O2 Sat 95.8 % (95-100); Methemoglobin 0.9 % (0.4-1.5); Oxygen Device ROOM AIR; Total Hemoglobin 15.7 g/dL (12-16)
--- NOTE | 2020-10-20 06:57 | PC.NURSE ---
BC x1 collected and sent
--- NOTE | 2020-10-20 07:01 | PC.NURSE ---
pt c/o about pain LUQ
--- NOTE | 2020-10-20 07:02 | PC.NURSE ---
Report to ROLDAN MariaP
[2020-10-20 07:03] LABS: Ketone (Acetest) Serum Negative (Negative)
[2020-10-20 07:18] LABS: Procalcitonin 0.27 ng/mL (0-0.5)
--- NOTE | 2020-10-20 07:20 | CT_ITS ---
WS: [id number] CT CHEST ANGIOGRAPHY WITH REFORMATS HISTORY: hypoxia/tachycardia/post covid TECHNIQUE: Contiguous axial images are obtained through the chest during arterial injection of intrav enous contrast. Images are reconstructed to evaluate the pulmonary arteries. MIP imaging also reviewe d. All CT scans at [facility] use at least one of these dose optimization techniques: aut omated exposure control; mA and/or kV adjustment per patient size (includes targeted exams where dose is matched to clinical indication); or iterative reconstruction. CONTRAST: Omnipaque 350; 95 mL IV. DLP: 481.57 mGy.cm COMPARISON: 09/15/2020, 09/10/2017 Very good opacification of the pulmonary arteries. There are no filling defects or pulmonary emboli. Pulmonary artery is enlarged slightly. There is mild diffuse groundglass attenuation and haziness ove r both lungs. No pleural effusion. No mediastinal or hilar adenopathy. Moderate enlargement of the LE FT heart chambers. Mild thickening of the ventricular wall. Mild dilatation of the esophagus. Prior cholecystectomy. Mild hepatic steatosis. LEFT adrenal mass measures 1.9 cm. This mass has been present on multiple jay dies dating back to 2016 but slowly increasing in size. Stable since 07/17/2020. This is an indetermi prabhjot nodule. This is not typical for benign adenoma. Fullness at the pancreatic head as seen on the p rior study. Area of fullness and mild inflammation has been previously described. No mass was identif ied on the MRCP from 07/28/2020. This fullness and mild inflammatory and haziness around the pancreat ic head is new as compared to multiple prior examinations over several years. Obliteration of fat sana ne between the duodenal C-loop and the pancreatic head. Cannot exclude invasion into the duodenal C-l oop. Mild distention of the stomach with fluid may be a partial outlet obstruction. CT/CT angio chest PE protcl [id number] IMPRESSION: 1. No pulmonary embolism. 2. Mild interstitial edema. 3. Although incompletely visualized there is new persistent fullness with mild inflammation at the pancreatic head. Neoplasm or focal pancreatitis within the differential. This needs to be further evaluated. Endoscopy follow-up and CT e valuation recommended. 4. LEFT adrenal solid mass measures 1.9 cm. This mass has been present on mult iple prior examinations with minimal increase in size. This is not a simple cys t or benign adenoma. 5. Recommendation: Dedicated follow-up CT evaluation of the abdomen and pelvis . Adrenal CT protocol with and without IV contrast recommended along with oral contrast for the entire abdomen and pelvis and better evaluate of the pancreati c head abnormality. Notified Osmel Segovia DO at 10/20/2020 8:20 AM.
--- NOTE | 2020-10-20 07:24 | ED_ITS ---
Documented by User: Osmel Segovia DO 10/20/20 10:59 HPI - Nausea/Vomiting/Diarrhea General: Chief complaint: Nausea/Vomiting/Diarrhea Stated complaint: n/v, bloody vomit Time Seen by Provider: 10/20/20 05:54 History of Present Illness: HPI Narrative: 40-year-old female presents emergency room with complaints of nausea vomiting for the last 2 to 3 days. This morning she is reporting bloody emesis and coffee-ground like emesis. She denies fever sweats or chills or flulike symptoms she tested positive for Covid in early September 2020 and seems to have completely resolved from that. She denies dysuria urgency or frequency. She has a history of diabetes was previously on Metformin and Invokana but these were stopped because of an episode of pancreatitis and currently she is not taking anything. On arrival here she was hypertensive tachycardic and at times has had oxygen saturations dipping into the upper 80s. She is complaining of severe abdominal pain which she localizes more to the epigastric left upper quadrant area. She was initially seen by Dr. Alejo and then handed off to myself at change of shift. She has had some bilious vomiting here but nothing that has appeared coffee- ground like. She has previously had a cholecystectomy. MD elicited complaint: nausea and vomiting Pertinent past history: abdominal surgery (Previous cholecystectomy) and pacreatitis Onset (ago): day(s) (2-3) Description of vomiting: watery and bilious Associated nausea: Yes Associated abdominal pain: Yes Location of pain: Epigastric and LUQ Pain consistency: constant Severity: severe Quality: cramping Exacerbating factors: movement Relieving factors: rest Associated symtoms: Reports anxiety, decreased urine output, anorexia, malaise and nausea; Denies altered mental status, bloating, change in vision, chest pain, cough, diaphoresis, dizziness, dysuria, epistaxis, fatigue, fecal incontinence, fevers/chills, headache(s), myalgias, numbness, palpitations, rash, short of breath, syncope, tenesmus, tinnitus or weakness Review of Systems Const: Reports: malaise; Denies: fatigue or diaphoresis Eyes: Denies: change in vision ENMT: Denies: tinnitus or epistaxis Card: Denies: chest pain, palpitations or syncope Resp: Denies: dyspnea, productive cough or non-productive cough GI: Reports: nausea; Denies: bloating or fecal incontinence : Denies: flank pain, difficulty voiding, dysuria, urinary frequency or urinary urgency Skin/Breast: Denies: rash or pruritus Neuro: Denies: headache(s) or dizziness Psych: Reports: anxiety PFSH ED PFSH: Medical History (Updated 10/20/20 @ 10:59 by Osmel Segovia DO) Chronic pain of lower extremity, bilateral 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 Constipation Diabetes Epilepsy Essential (primary) hypertension Primary osteoarthritis Recurrent vomiting Surgical History History of bilateral knee replacement History of cholecystectomy History of D&C 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 Family History Grandmother Cancer Lung disease Stroke Mother Lung disease Other A-fib CHF (congestive heart failure) Social History Smoking and tobacco status: never smoked Alcohol intake: never Household members: spouse Housing: House Marital status: Current occupational status: disabled History of recent travel: No Physical Exam Const: COMMON NORMALS: no acute distress EXAM LIMITATIONS: no altered mental status GENERAL APPEARANCE: cooperative and comfortable ORIENTATION/CONSCIOUSNESS: Yes awake, Yes oriented to person, Yes oriented to place and Yes oriented to time HENMT: COMMON NORMALS: normocephalic, atraumatic and hearing grossly normal bilaterally HEAD & SCALP: normocephalic and atraumatic Neck/C-Spine: COMMON NORMALS: no JVD Resp: COMMON NORMALS: normal respiratory effort, No retractions, No use of accessory muscles and clear to auscultation bilaterally AUSCULTATION: clear to auscultation bilaterally Cardio: COMMON NORMALS: no JVD, regular rate, regular rhythm and No murmurs present (Cardio) RATE: regular rate RHYTHM: regular rhythm GI: COMMON NORMALS: No hepatosplenomegaly present AUSCULTATION: Yes normoactive bowel sounds PALPATION: Yes Tenderness to palpation present (GI) (Diffuse tenderness per the patient's report more significant in the epigast), Yes Guarding due to palpation present (GI) and Yes No hepatosplenomegaly present Extremity: COMMON NORMALS: normal to inspection, capillary refill normal, no clubbing, cyanosis or edema, no calf tenderness and no pedal edema Neuro: SENSORIUM/ORIENTATION: Yes oriented to person, Yes oriented to place and Yes oriented to time Skin: COMMON NORMALS: no rashes or lesions noted GENERAL SKIN EXAM: no rashes or lesions noted Course Vital Signs: Vital signs: Vital Signs Temperature 97.9 F 10/20/20 05:39 Pulse Rate 137 H 10/20/20 10:00 Respiratory Rate 16 10/20/20 10:00 Blood Pressure 130/103 10/20/20 09:30 Pulse Oximetry 95 10/20/20 10:00 MDM - Nausea/Vomiting/Diarrhea MDM Narrative: Medical decision making narrative: Her lipase is normal she has an anion gap but is not acidotic. She is mildly hypokalemic. Her lactic acid is significantly elevated as is her white count. She has a significant amount of constipation as well. Her pain level is markedly disproportionate to her exam. We did not witness any coffee-ground emesis or hematemesis. She is initially given a liter of fluids ordered some more fluids but her T the chest appears somewhat fluid overloaded. Discussed with Dr. Avendaño. Will give another liter of fluid. Her BUN is normal and a little suspect of any possibility of upper GI bleed. She has had this presentation in the past as well. Reviewed some notes from 2017 including an echo and a cardiology consultation of there is a question of hypertrophic cardiomyopathy with outflow tract obstruction Dr. Sandy did not feel this was the case. Organ to go ahead and admit her for now to the ICU and cover with antibiotics Dr. Avendaño is seen her and will accept her to her services orders been written. Lab Data: Labs: Lab Results 10/20/20 10/20/20 10/20/20 Range/Units 05:45 05:45 05:45 WBC 23.5 H (4.0-10.0) 10^3/ uL RBC 6.10 H (4.1-5.3) 10^6/u L Hgb 18.2 H (11.5-15.3) g/dL Hct 54.5 H (37.0-47.0) % MCV 89.3 (81-99) fL MCH 29.8 (28.0-34.0) pg MCHC 33.4 (30.0-36.0) g/dL RDW 14.2 (12.1-15.1) % Plt Count 502 H (130-400) 10^3/c mm MPV 11.6 H (7.4-10.4) fL Neut % (Auto) 78.7 % Lymph % (Auto) 15.5 % [place] % (Auto) 4.9 % Eos % (Auto) 0.0 % Baso % (Auto) 0.3 % Neut # (Auto) 18.45 H (1.8-7.7) 10^3/u L Lymph # (Auto) 3.6 (0.8-4.8) 10^3/u L [place] # (Auto) 1.2 H (0.2-0.9) 10^3/u L Eos # (Auto) 0.0 (0.0-0.8) 10^3/u L Baso # (Auto) 0.1 (0.0-0.1) 10^3/u L Nucleated RBC % (a uto) 0 % Nucleated RBCs # 0.0 /100WBC PT (12.1-14.9) SECO NDS INR (0.8-1.2) APTT (23.9-36.7) SECO NDS Specimen Type Sample Site ABG pH (7.35-7.45) ABG pCO2 (35-45) mmHg ABG pO2 (80.0-100.0) mmH g ABG HCO3 (22-26) mmol/L ABG Base Excess (-2.0-2.0) mmol/ L Stanford Test Hematocrit (37-47) % Hgb O2 Saturation (95-100) % Carboxyhemoglobin (0.4-20.1) %THgb Methemoglobin (0.4-1.5) % Total Hemoglobin (12-16) g/dL O2 Delivery Device Concrete Placement Equipment Operator ID Sodium 143 (136-145) mmol/L Potassium 3.1 L (3.5-5.1) mmol/L Chloride 97 L (98-107) mmol/L Carbon Dioxide 22 (22-29) mmol/L Anion Gap 27.1 H (5-19) BUN 16 (6-20) mg/dL Creatinine 1.4 H (0.5-0.9) mg/dL GFR Calculation 41.6 L (90-130) mL/min Glucose 223 H (65-115) mg/dL Calculated Osmolal ity 304 H (285-295) mOsm/k g Lactic Acid (0.5-2.2) mmol/L Lactate 7.4 H* (0.5-2.2) mmol/L Calcium 10.8 H (8.5-10.5) mg/dL Magnesium 1.7 (1.7-2.3) mg/dL Total Bilirubin 0.7 (0.15-1.2) mg/dL AST 22 (0-32) U/L ALT 13 (0-33) U/L Alkaline Phosphata se 130 H (35-105) IU/L Creatine Kinase (26-192) U/L Troponin T Baselin e (0-10) ng/L C-Reactive Protein 36.6 H (0.0-4.9) mg/L NT-Pro-B Natriuret Pep 56938 H (0-125) pg/mL Total Protein 9.0 H (6.6-8.7) g/dL Albumin 4.8 (3.5-5.2) g/dL Globulin 4.2 (1.3-4.6) g/dL Lipase 27 (13-60) U/L Procalcitonin (0-0.5) ng/mL TSH (0.27-4.20) uIU/ mL Urine Color (Yellow) Urine Appearance (CLEAR) Urine pH (5-7) Ur Specific Gravit y (1.005-1.030) Urine Protein (Negative) Urine Glucose (UA) (Normal) Urine Ketones (Negative) Urine Blood (Negative) Urine Nitrate (Negative) Urine Bilirubin (Negative) Urine Urobilinogen (Negative) mg/dL Ur Leukocyte Domitila ase (Negative) Urine RBC (0-2) /hpf Urine WBC (0-5) /hpf Ur Squamous Epith Cells (0-5) /hpf Amorphous Sediment /hpf Urine Bacteria (NONE) /hpf Ethyl Alcohol < 10 (0-10) mg/dL Serum Ketones (Negative) Blood Type Rho(D) Type Antibody Screen 10/20/20 10/20/20 10/20/20 Range/Units 05:45 05:45 05:45 WBC (4.0-10.0) 10^3/ uL RBC (4.1-5.3) 10^6/u L Hgb (11.5-15.3) g/dL Hct (37.0-47.0) % MCV (81-99) fL MCH (28.0-34.0) pg MCHC (30.0-36.0) g/dL RDW (12.1-15.1) % Plt Count (130-400) 10^3/c mm MPV (7.4-10.4) fL Neut % (Auto) % Lymph % (Auto) % [place] % (Auto) % Eos % (Auto) % Baso % (Auto) % Neut # (Auto) (1.8-7.7) 10^3/u L Lymph # (Auto) (0.8-4.8) 10^3/u L [place] # (Auto) (0.2-0.9) 10^3/u L Eos # (Auto) (0.0-0.8) 10^3/u L Baso # (Auto) (0.0-0.1) 10^3/u L Nucleated RBC % (a uto) % Nucleated RBCs # /100WBC PT 14.40 (12.1-14.9) SECO NDS INR 1.08 (0.8-1.2) APTT 28.9 (23.9-36.7) SECO NDS Specimen Type Sample Site ABG pH (7.35-7.45) ABG pCO2 (35-45) mmHg ABG pO2 (80.0-100.0) mmH g ABG HCO3 (22-26) mmol/L ABG Base Excess (-2.0-2.0) mmol/ L Stanford Test Hematocrit (37-47) % Hgb O2 Saturation (95-100) % Carboxyhemoglobin (0.4-20.1) %THgb Methemoglobin (0.4-1.5) % Total Hemoglobin (12-16) g/dL O2 Delivery Device Concrete Placement Equipment Operator ID Sodium (136-145) mmol/L Potassium (3.5-5.1) mmol/L Chloride (98-107) mmol/L Carbon Dioxide (22-29) mmol/L Anion Gap (5-19) BUN (6-20) mg/dL Creatinine (0.5-0.9) mg/dL GFR Calculation (90-130) mL/min Glucose (65-115) mg/dL Calculated Osmolal ity (285-295) mOsm/k g Lactic Acid (0.5-2.2) mmol/L Lactate (0.5-2.2) mmol/L Calcium (8.5-10.5) mg/dL Magnesium (1.7-2.3) mg/dL Total Bilirubin (0.15-1.2) mg/dL AST (0-32) U/L ALT (0-33) U/L Alkaline Phosphata se (35-105) IU/L Creatine Kinase (26-192) U/L Troponin T Baselin e (0-10) ng/L C-Reactive Protein (0.0-4.9) mg/L NT-Pro-B Natriuret Pep (0-125) pg/mL Total Protein (6.6-8.7) g/dL Albumin (3.5-5.2) g/dL Globulin (1.3-4.6) g/dL Lipase (13-60) U/L Procalcitonin 0.27 (0-0.5) ng/mL TSH (0.27-4.20) uIU/ mL Urine Color (Yellow) Urine Appearance (CLEAR) Urine pH (5-7) Ur Specific Gravit y (1.005-1.030) Urine Protein (Negative) Urine Glucose (UA) (Normal) Urine Ketones (Negative) Urine Blood (Negative) Urine Nitrate (Negative) Urine Bilirubin (Negative) Urine Urobilinogen (Negative) mg/dL Ur Leukocyte Domitila ase (Negative) Urine RBC (0-2) /hpf Urine WBC (0-5) /hpf Ur Squamous Epith Cells (0-5) /hpf Amorphous Sediment /hpf Urine Bacteria (NONE) /hpf Ethyl Alcohol (0-10) mg/dL Serum Ketones Negative (Negative) Blood Type Rho(D) Type Antibody Screen 10/20/20 10/20/20 10/20/20 Range/Units 05:45 05:55 06:44 WBC (4.0-10.0) 10^3/ uL RBC (4.1-5.3) 10^6/u L Hgb (11.5-15.3) g/dL Hct (37.0-47.0) % MCV (81-99) fL MCH (28.0-34.0) pg MCHC (30.0-36.0) g/dL RDW (12.1-15.1) % Plt Count (130-400) 10^3/c mm MPV (7.4-10.4) fL Neut % (Auto) % Lymph % (Auto) % [place] % (Auto) % Eos % (Auto) % Baso % (Auto) % Neut # (Auto) (1.8-7.7) 10^3/u L Lymph # (Auto) (0.8-4.8) 10^3/u L [place] # (Auto) (0.2-0.9) 10^3/u L Eos # (Auto) (0.0-0.8) 10^3/u L Baso # (Auto) (0.0-0.1) 10^3/u L Nucleated RBC % (a uto) % Nucleated RBCs # /100WBC PT (12.1-14.9) SECO NDS INR (0.8-1.2) APTT (23.9-36.7) SECO NDS Specimen Type Arterial Sample Site Brachial, left ABG pH 7.47 H (7.35-7.45) ABG pCO2 33.2 L (35-45) mmHg ABG pO2 89.0 (80.0-100.0) mmH g ABG HCO3 23.9 (22-26) mmol/L ABG Base Excess 0.9 (-2.0-2.0) mmol/ L Stanford Test N/a Hematocrit 48.0 H (37-47) % Hgb O2 Saturation 95.8 (95-100) % Carboxyhemoglobin 0.0 L (0.4-20.1) %THgb Methemoglobin 0.9 (0.4-1.5) % Total Hemoglobin 15.7 (12-16) g/dL O2 Delivery Device Room air Concrete Placement Equipment Operator ID Harkr Sodium (136-145) mmol/L Potassium (3.5-5.1) mmol/L Chloride (98-107) mmol/L Carbon Dioxide (22-29) mmol/L Anion Gap (5-19) BUN (6-20) mg/dL Creatinine (0.5-0.9) mg/dL GFR Calculation (90-130) mL/min Glucose (65-115) mg/dL Calculated Osmolal ity (285-295) mOsm/k g Lactic Acid (0.5-2.2) mmol/L Lactate (0.5-2.2) mmol/L Calcium (8.5-10.5) mg/dL Magnesium 1.6 L (1.7-2.3) mg/dL Total Bilirubin (0.15-1.2) mg/dL AST (0-32) U/L ALT (0-33) U/L Alkaline Phosphata se (35-105) IU/L Creatine Kinase (26-192) U/L Troponin T Baselin e (0-10) ng/L C-Reactive Protein (0.0-4.9) mg/L NT-Pro-B Natriuret Pep (0-125) pg/mL Total Protein (6.6-8.7) g/dL Albumin (3.5-5.2) g/dL Globulin (1.3-4.6) g/dL Lipase (13-60) U/L Procalcitonin (0-0.5) ng/mL TSH 0.50 (0.27-4.20) uIU/ mL Urine Color (Yellow) Urine Appearance (CLEAR) Urine pH (5-7) Ur Specific Gravit y (1.005-1.030) Urine Protein (Negative) Urine Glucose (UA) (Normal) Urine Ketones (Negative) Urine Blood (Negative) Urine Nitrate (Negative) Urine Bilirubin (Negative) Urine Urobilinogen (Negative) mg/dL Ur Leukocyte Domitila ase (Negative) Urine RBC (0-2) /hpf Urine WBC (0-5) /hpf Ur Squamous Epith Cells (0-5) /hpf Amorphous Sediment /hpf Urine Bacteria (NONE) /hpf Ethyl Alcohol (0-10) mg/dL Serum Ketones (Negative) Blood Type A Positive Rho(D) Type Positive Antibody Screen Negative 10/20/20 10/20/20 10/20/20 Range/Units 07:37 08:37 08:37 WBC (4.0-10.0) 10^3/ uL RBC (4.1-5.3) 10^6/u L Hgb (11.5-15.3) g/dL Hct (37.0-47.0) % MCV (81-99) fL MCH (28.0-34.0) pg MCHC (30.0-36.0) g/dL RDW (12.1-15.1) % Plt Count (130-400) 10^3/c mm MPV (7.4-10.4) fL Neut % (Auto) % Lymph % (Auto) % [place] % (Auto) % Eos % (Auto) % Baso % (Auto) % Neut # (Auto) (1.8-7.7) 10^3/u L Lymph # (Auto) (0.8-4.8) 10^3/u L [place] # (Auto) (0.2-0.9) 10^3/u L Eos # (Auto) (0.0-0.8) 10^3/u L Baso # (Auto) (0.0-0.1) 10^3/u L Nucleated RBC % (a uto) % Nucleated RBCs # /100WBC PT (12.1-14.9) SECO NDS INR (0.8-1.2) APTT (23.9-36.7) SECO NDS Specimen Type Sample Site ABG pH (7.35-7.45) ABG pCO2 (35-45) mmHg ABG pO2 (80.0-100.0) mmH g ABG HCO3 (22-26) mmol/L ABG Base Excess (-2.0-2.0) mmol/ L Stanford Test Hematocrit (37-47) % Hgb O2 Saturation (95-100) % Carboxyhemoglobin (0.4-20.1) %THgb Methemoglobin (0.4-1.5) % Total Hemoglobin (12-16) g/dL O2 Delivery Device Concrete Placement Equipment Operator ID Sodium (136-145) mmol/L Potassium (3.5-5.1) mmol/L Chloride (98-107) mmol/L Carbon Dioxide (22-29) mmol/L Anion Gap (5-19) BUN (6-20) mg/dL Creatinine (0.5-0.9) mg/dL GFR Calculation (90-130) mL/min Glucose (65-115) mg/dL Calculated Osmolal ity (285-295) mOsm/k g Lactic Acid 2.5 H (0.5-2.2) mmol/L Lactate (0.5-2.2) mmol/L Calcium (8.5-10.5) mg/dL Magnesium (1.7-2.3) mg/dL Total Bilirubin (0.15-1.2) mg/dL AST (0-32) U/L ALT (0-33) U/L Alkaline Phosphata se (35-105) IU/L Creatine Kinase (26-192) U/L Troponin T Baselin e 37 H (0-10) ng/L C-Reactive Protein (0.0-4.9) mg/L NT-Pro-B Natriuret Pep (0-125) pg/mL Total Protein (6.6-8.7) g/dL Albumin (3.5-5.2) g/dL Globulin (1.3-4.6) g/dL Lipase (13-60) U/L Procalcitonin (0-0.5) ng/mL TSH (0.27-4.20) uIU/ mL Urine Color Yellow (Yellow) Urine Appearance Clear (CLEAR) Urine pH 5 (5-7) Ur Specific Gravit y 1.020 (1.005-1.030) Urine Protein 3+ H (Negative) Urine Glucose (UA) 2+ (Normal) Urine Ketones 1+ H (Negative) Urine Blood 2+ H (Negative) Urine Nitrate Negative (Negative) Urine Bilirubin Neg (Negative) Urine Urobilinogen Norm (Negative) mg/dL Ur Leukocyte Domitila ase Negative (Negative) Urine RBC 0-4 H (0-2) /hpf Urine WBC 0-4 H (0-5) /hpf Ur Squamous Epith Cells 0-4 H (0-5) /hpf Amorphous Sediment 3+ /hpf Urine Bacteria 1+ H (NONE) /hpf Ethyl Alcohol (0-10) mg/dL Serum Ketones (Negative) Blood Type Rho(D) Type Antibody Screen 10/20/20 Range/Units 08:37 WBC (4.0-10.0) 10^3/ uL RBC (4.1-5.3) 10^6/u L Hgb (11.5-15.3) g/dL Hct (37.0-47.0) % MCV (81-99) fL MCH (28.0-34.0) pg MCHC (30.0-36.0) g/dL RDW (12.1-15.1) % Plt Count (130-400) 10^3/c mm MPV (7.4-10.4) fL Neut % (Auto) % Lymph % (Auto) % [place] % (Auto) % Eos % (Auto) % Baso % (Auto) % Neut # (Auto) (1.8-7.7) 10^3/u L Lymph # (Auto) (0.8-4.8) 10^3/u L [place] # (Auto) (0.2-0.9) 10^3/u L Eos # (Auto) (0.0-0.8) 10^3/u L Baso # (Auto) (0.0-0.1) 10^3/u L Nucleated RBC % (a uto) % Nucleated RBCs # /100WBC PT (12.1-14.9) SECO NDS INR (0.8-1.2) APTT (23.9-36.7) SECO NDS Specimen Type Sample Site ABG pH (7.35-7.45) ABG pCO2 (35-45) mmHg ABG pO2 (80.0-100.0) mmH g ABG HCO3 (22-26) mmol/L ABG Base Excess (-2.0-2.0) mmol/ L Stanford Test Hematocrit (37-47) % Hgb O2 Saturation (95-100) % Carboxyhemoglobin (0.4-20.1) %THgb Methemoglobin (0.4-1.5) % Total Hemoglobin (12-16) g/dL O2 Delivery Device Concrete Placement Equipment Operator ID Sodium (136-145) mmol/L Potassium (3.5-5.1) mmol/L Chloride (98-107) mmol/L Carbon Dioxide (22-29) mmol/L Anion Gap (5-19) BUN (6-20) mg/dL Creatinine (0.5-0.9) mg/dL GFR Calculation (90-130) mL/min Glucose (65-115) mg/dL Calculated Osmolal ity (285-295) mOsm/k g Lactic Acid (0.5-2.2) mmol/L Lactate (0.5-2.2) mmol/L Calcium (8.5-10.5) mg/dL Magnesium (1.7-2.3) mg/dL Total Bilirubin (0.15-1.2) mg/dL AST (0-32) U/L ALT (0-33) U/L Alkaline Phosphata se (35-105) IU/L Creatine Kinase 753 H* (26-192) U/L Troponin T Baselin e (0-10) ng/L C-Reactive Protein (0.0-4.9) mg/L NT-Pro-B Natriuret Pep (0-125) pg/mL Total Protein (6.6-8.7) g/dL Albumin (3.5-5.2) g/dL Globulin (1.3-4.6) g/dL Lipase (13-60) U/L Procalcitonin (0-0.5) ng/mL TSH (0.27-4.20) uIU/ mL Urine Color (Yellow) Urine Appearance (CLEAR) Urine pH (5-7) Ur Specific Gravit y (1.005-1.030) Urine Protein (Negative) Urine Glucose (UA) (Normal) Urine Ketones (Negative) Urine Blood (Negative) Urine Nitrate (Negative) Urine Bilirubin (Negative) Urine Urobilinogen (Negative) mg/dL Ur Leukocyte Domitila ase (Negative) Urine RBC (0-2) /hpf Urine WBC (0-5) /hpf Ur Squamous Epith Cells (0-5) /hpf Amorphous Sediment /hpf Urine Bacteria (NONE) /hpf Ethyl Alcohol (0-10) mg/dL Serum Ketones (Negative) Blood Type Rho(D) Type Antibody Screen Discharge Plan Discharge Patient Disposition: Admitted As Inpatient Clinical Impression: Sepsis, Hypokalemia, Constipation, CHF (congestive heart failure) Condition: Stable Prescriptions: No Action morphine 30 mg tablet extended release 30 mg PO Q12H 30 Days Qty: 60 RF: 0 furosemide 20 mg tablet 40 mg PO BID Qty: 120 RF: 3 tizanidine 4 mg tablet 8 mg PO TID PRN (Reason: muscle spasticity) 30 Days Qty: 180 RF: 3 ondansetron HCl 4 mg tablet 4 mg PO Q8H PRN (Reason: nausea and vomiting) Qty: 20 RF: 0 potassium chloride 10 mEq capsule, extended release 10 meq PO DAILY RF: 0 zolpidem 5 mg tablet 5 mg PO BEDTIME PRN (Reason: Sleep) RF: 0 hydrochlorothiazide 12.5 mg tablet 12.5 mg PO DAILY RF: 0 hydromorphone [Dilaudid] 2 mg tablet 2 mg PO Q4H PRN (Reason: pain) Qty: 7 RF: 0 pantoprazole 40 mg tablet,delayed release (DR/EC) 40 mg PO BID@08,20 RF: 0 Briviact 25 mg tablet 25 mg PO DAILY@08 RF: 0 hydrocodone-acetaminophen 5-325 mg tablet 1 tab PO Q4H PRN (Reason: Pain) RF: 0 lorazepam 0.5 mg tablet 0.5 mg PO BID PRN (Reason: Seizures) RF: 0 Referrals: Yony Otero MD [Primary Care Provider] - Sign Out Sign Out Data: Patient Sign Out occurred on 10/20/20 at 07:44. Patient's care was discussed, and care was transferred from to Osmel Segovia DO. 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 Constipation Diabetes Epilepsy Essential (primary) hypertension Primary osteoarthritis Recurrent vomiting Surgical History History of bilateral knee replacement History of cholecystectomy History of D&C 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 Family History Grandmother Cancer Lung disease Stroke Mother Lung disease Other A-fib CHF (congestive heart failure) Social History Smoking and tobacco status: never smoked Alcohol intake: never Household members: spouse Housing: House Marital status: Current occupational status: disabled History of recent travel: No Course Vital Signs: Vital signs: Vital Signs Temperature 97.9 F 10/20/20 05:39 Pulse Rate 137 H 10/20/20 10:00 Respiratory Rate 16 10/20/20 10:00 Blood Pressure 130/103 10/20/20 09:30 Pulse Oximetry 95 10/20/20 10:00 MDM - Nausea/Vomiting/Diarrhea MDM Narrative: Medical decision making narrative: Patient originally seen by me near change of shift. I agree with Dr. Segovia's documented history, physical exam, and management. Lab Data: Labs: Lab Results 10/20/20 10/20/20 10/20/20 Range/Units 05:45 05:45 05:45 WBC 23.5 H (4.0-10.0) 10^3/ uL RBC 6.10 H (4.1-5.3) 10^6/u L Hgb 18.2 H (11.5-15.3) g/dL Hct 54.5 H (37.0-47.0) % MCV 89.3 (81-99) fL MCH 29.8 (28.0-34.0) pg MCHC 33.4 (30.0-36.0) g/dL RDW 14.2 (12.1-15.1) % Plt Count 502 H (130-400) 10^3/c mm MPV 11.6 H (7.4-10.4) fL Neut % (Auto) 78.7 % Lymph % (Auto) 15.5 % [place] % (Auto) 4.9 % Eos % (Auto) 0.0 % Baso % (Auto) 0.3 % Neut # (Auto) 18.45 H (1.8-7.7) 10^3/u L Lymph # (Auto) 3.6 (0.8-4.8) 10^3/u L [place] # (Auto) 1.2 H (0.2-0.9) 10^3/u L Eos # (Auto) 0.0 (0.0-0.8) 10^3/u L Baso # (Auto) 0.1 (0.0-0.1) 10^3/u L Nucleated RBC % (a uto) 0 % Nucleated RBCs # 0.0 /100WBC PT (12.1-14.9) SECO NDS INR (0.8-1.2) APTT (23.9-36.7) SECO NDS Specimen Type Sample Site ABG pH (7.35-7.45) ABG pCO2 (35-45) mmHg ABG pO2 (80.0-100.0) mmH g ABG HCO3 (22-26) mmol/L ABG Base Excess (-2.0-2.0) mmol/ L [place] Test Hematocrit (37-47) % Hgb O2 Saturation (95-100) % Carboxyhemoglobin (0.4-20.1) %THgb Methemoglobin (0.4-1.5) % Total Hemoglobin (12-16) g/dL O2 Delivery Device Concrete Placement Equipment Operator ID Sodium 143 (136-145) mmol/L Potassium 3.1 L (3.5-5.1) mmol/L Chloride 97 L (98-107) mmol/L Carbon Dioxide 22 (22-29) mmol/L Anion Gap 27.1 H (5-19) BUN 16 (6-20) mg/dL Creatinine 1.4 H (0.5-0.9) mg/dL GFR Calculation 41.6 L (90-130) mL/min Glucose 223 H (65-115) mg/dL Calculated Osmolal ity 304 H (285-295) mOsm/k g Lactic Acid (0.5-2.2) mmol/L Lactate 7.4 H* (0.5-2.2) mmol/L Calcium 10.8 H (8.5-10.5) mg/dL Magnesium 1.7 (1.7-2.3) mg/dL Total Bilirubin 0.7 (0.15-1.2) mg/dL AST 22 (0-32) U/L ALT 13 (0-33) U/L Alkaline Phosphata se 130 H (35-105) IU/L Creatine Kinase (26-192) U/L Troponin T Baselin e (0-10) ng/L C-Reactive Protein 36.6 H (0.0-4.9) mg/L NT-Pro-B Natriuret Pep 15245 H (0-125) pg/mL Total Protein 9.0 H (6.6-8.7) g/dL Albumin 4.8 (3.5-5.2) g/dL Globulin 4.2 (1.3-4.6) g/dL Lipase 27 (13-60) U/L Procalcitonin (0-0.5) ng/mL TSH (0.27-4.20) uIU/ mL Urine Color (Yellow) Urine Appearance (CLEAR) Urine pH (5-7) Ur Specific Gravit y (1.005-1.030) Urine Protein (Negative) Urine Glucose (UA) (Normal) Urine Ketones (Negative) Urine Blood (Negative) Urine Nitrate (Negative) Urine Bilirubin (Negative) Urine Urobilinogen (Negative) mg/dL Ur Leukocyte Domitila ase (Negative) Urine RBC (0-2) /hpf Urine WBC (0-5) /hpf Ur Squamous Epith Cells (0-5) /hpf Amorphous Sediment /hpf Urine Bacteria (NONE) /hpf Ethyl Alcohol < 10 (0-10) mg/dL Serum Ketones (Negative) Blood Type Rho(D) Type Antibody Screen 10/20/20 10/20/20 10/20/20 Range/Units 05:45 05:45 05:45 WBC (4.0-10.0) 10^3/ uL RBC (4.1-5.3) 10^6/u L Hgb (11.5-15.3) g/dL Hct (37.0-47.0) % MCV (81-99) fL MCH (28.0-34.0) pg MCHC (30.0-36.0) g/dL RDW (12.1-15.1) % Plt Count (130-400) 10^3/c mm MPV (7.4-10.4) fL Neut % (Auto) % Lymph % (Auto) % [place] % (Auto) % Eos % (Auto) % Baso % (Auto) % Neut # (Auto) (1.8-7.7) 10^3/u L Lymph # (Auto) (0.8-4.8) 10^3/u L [place] # (Auto) (0.2-0.9) 10^3/u L Eos # (Auto) (0.0-0.8) 10^3/u L Baso # (Auto) (0.0-0.1) 10^3/u L Nucleated RBC % (a uto) % Nucleated RBCs # /100WBC PT 14.40 (12.1-14.9) SECO NDS INR 1.08 (0.8-1.2) APTT 28.9 (23.9-36.7) SECO NDS Specimen Type Sample Site ABG pH (7.35-7.45) ABG pCO2 (35-45) mmHg ABG pO2 (80.0-100.0) mmH g ABG HCO3 (22-26) mmol/L ABG Base Excess (-2.0-2.0) mmol/ L [facility] Test Hematocrit (37-47) % Hgb O2 Saturation (95-100) % Carboxyhemoglobin (0.4-20.1) %THgb Methemoglobin (0.4-1.5) % Total Hemoglobin (12-16) g/dL O2 Delivery Device Concrete Placement Equipment Operator ID Sodium (136-145) mmol/L Potassium (3.5-5.1) mmol/L Chloride (98-107) mmol/L Carbon Dioxide (22-29) mmol/L Anion Gap (5-19) BUN (6-20) mg/dL Creatinine (0.5-0.9) mg/dL GFR Calculation (90-130) mL/min Glucose (65-115) mg/dL Calculated Osmolal ity (285-295) mOsm/k g Lactic Acid (0.5-2.2) mmol/L Lactate (0.5-2.2) mmol/L Calcium (8.5-10.5) mg/dL Magnesium (1.7-2.3) mg/dL Total Bilirubin (0.15-1.2) mg/dL AST (0-32) U/L ALT (0-33) U/L Alkaline Phosphata se (35-105) IU/L Creatine Kinase (26-192) U/L Troponin T Baselin e (0-10) ng/L C-Reactive Protein (0.0-4.9) mg/L NT-Pro-B Natriuret Pep (0-125) pg/mL Total Protein (6.6-8.7) g/dL Albumin (3.5-5.2) g/dL Globulin (1.3-4.6) g/dL Lipase (13-60) U/L Procalcitonin 0.27 (0-0.5) ng/mL TSH (0.27-4.20) uIU/ mL Urine Color (Yellow) Urine Appearance (CLEAR) Urine pH (5-7) Ur Specific Gravit y (1.005-1.030) Urine Protein (Negative) Urine Glucose (UA) (Normal) Urine Ketones (Negative) Urine Blood (Negative) Urine Nitrate (Negative) Urine Bilirubin (Negative) Urine Urobilinogen (Negative) mg/dL Ur Leukocyte Domitila ase (Negative) Urine RBC (0-2) /hpf Urine WBC (0-5) /hpf Ur Squamous Epith Cells (0-5) /hpf Amorphous Sediment /hpf Urine Bacteria (NONE) /hpf Ethyl Alcohol (0-10) mg/dL Serum Ketones Negative (Negative) Blood Type Rho(D) Type Antibody Screen 10/20/20 10/20/20 10/20/20 Range/Units 05:45 05:55 06:44 WBC (4.0-10.0) 10^3/ uL RBC (4.1-5.3) 10^6/u L Hgb (11.5-15.3) g/dL Hct (37.0-47.0) % MCV (81-99) fL MCH (28.0-34.0) pg MCHC (30.0-36.0) g/dL RDW (12.1-15.1) % Plt Count (130-400) 10^3/c mm MPV (7.4-10.4) fL Neut % (Auto) % Lymph % (Auto) % [place] % (Auto) % Eos % (Auto) % Baso % (Auto) % Neut # (Auto) (1.8-7.7) 10^3/u L Lymph # (Auto) (0.8-4.8) 10^3/u L [place] # (Auto) (0.2-0.9) 10^3/u L Eos # (Auto) (0.0-0.8) 10^3/u L Baso # (Auto) (0.0-0.1) 10^3/u L Nucleated RBC % (a uto) % Nucleated RBCs # /100WBC PT (12.1-14.9) SECO NDS INR (0.8-1.2) APTT (23.9-36.7) SECO NDS Specimen Type Arterial Sample Site Brachial, left ABG pH 7.47 H (7.35-7.45) ABG pCO2 33.2 L (35-45) mmHg ABG pO2 89.0 (80.0-100.0) mmH g ABG HCO3 23.9 (22-26) mmol/L ABG Base Excess 0.9 (-2.0-2.0) mmol/ L [facility] Test N/a Hematocrit 48.0 H (37-47) % Hgb O2 Saturation 95.8 (95-100) % Carboxyhemoglobin 0.0 L (0.4-20.1) %THgb Methemoglobin 0.9 (0.4-1.5) % Total Hemoglobin 15.7 (12-16) g/dL O2 Delivery Device Room air Concrete Placement Equipment Operator ID Harkr Sodium (136-145) mmol/L Potassium (3.5-5.1) mmol/L Chloride (98-107) mmol/L Carbon Dioxide (22-29) mmol/L Anion Gap (5-19) BUN (6-20) mg/dL Creatinine (0.5-0.9) mg/dL GFR Calculation (90-130) mL/min Glucose (65-115) mg/dL Calculated Osmolal ity (285-295) mOsm/k g Lactic Acid (0.5-2.2) mmol/L Lactate (0.5-2.2) mmol/L Calcium (8.5-10.5) mg/dL Magnesium 1.6 L (1.7-2.3) mg/dL Total Bilirubin (0.15-1.2) mg/dL AST (0-32) U/L ALT (0-33) U/L Alkaline Phosphata se (35-105) IU/L Creatine Kinase (26-192) U/L Troponin T Baselin e (0-10) ng/L C-Reactive Protein (0.0-4.9) mg/L NT-Pro-B Natriuret Pep (0-125) pg/mL Total Protein (6.6-8.7) g/dL Albumin (3.5-5.2) g/dL Globulin (1.3-4.6) g/dL Lipase (13-60) U/L Procalcitonin (0-0.5) ng/mL TSH 0.50 (0.27-4.20) uIU/ mL Urine Color (Yellow) Urine Appearance (CLEAR) Urine pH (5-7) Ur Specific Gravit y (1.005-1.030) Urine Protein (Negative) Urine Glucose (UA) (Normal) Urine Ketones (Negative) Urine Blood (Negative) Urine Nitrate (Negative) Urine Bilirubin (Negative) Urine Urobilinogen (Negative) mg/dL Ur Leukocyte Domitila ase (Negative) Urine RBC (0-2) /hpf Urine WBC (0-5) /hpf Ur Squamous Epith Cells (0-5) /hpf Amorphous Sediment /hpf Urine Bacteria (NONE) /hpf Ethyl Alcohol (0-10) mg/dL Serum Ketones (Negative) Blood Type A Positive Rho(D) Type Positive Antibody Screen Negative 10/20/20 10/20/20 10/20/20 Range/Units 07:37 08:37 08:37 WBC (4.0-10.0) 10^3/ uL RBC (4.1-5.3) 10^6/u L Hgb (11.5-15.3) g/dL Hct (37.0-47.0) % MCV (81-99) fL MCH (28.0-34.0) pg MCHC (30.0-36.0) g/dL RDW (12.1-15.1) % Plt Count (130-400) 10^3/c mm MPV (7.4-10.4) fL Neut % (Auto) % Lymph % (Auto) % [place] % (Auto) % Eos % (Auto) % Baso % (Auto) % Neut # (Auto) (1.8-7.7) 10^3/u L Lymph # (Auto) (0.8-4.8) 10^3/u L [place] # (Auto) (0.2-0.9) 10^3/u L Eos # (Auto) (0.0-0.8) 10^3/u L Baso # (Auto) (0.0-0.1) 10^3/u L Nucleated RBC % (a uto) % Nucleated RBCs # /100WBC PT (12.1-14.9) SECO NDS INR (0.8-1.2) APTT (23.9-36.7) SECO NDS Specimen Type Sample Site ABG pH (7.35-7.45) ABG pCO2 (35-45) mmHg ABG pO2 (80.0-100.0) mmH g ABG HCO3 (22-26) mmol/L ABG Base Excess (-2.0-2.0) mmol/ L [facility] Test Hematocrit (37-47) % Hgb O2 Saturation (95-100) % Carboxyhemoglobin (0.4-20.1) %THgb Methemoglobin (0.4-1.5) % Total Hemoglobin (12-16) g/dL O2 Delivery Device Concrete Placement Equipment Operator ID Sodium (136-145) mmol/L Potassium (3.5-5.1) mmol/L Chloride (98-107) mmol/L Carbon Dioxide (22-29) mmol/L Anion Gap (5-19) BUN (6-20) mg/dL Creatinine (0.5-0.9) mg/dL GFR Calculation (90-130) mL/min Glucose (65-115) mg/dL Calculated Osmolal ity (285-295) mOsm/k g Lactic Acid 2.5 H (0.5-2.2) mmol/L Lactate (0.5-2.2) mmol/L Calcium (8.5-10.5) mg/dL Magnesium (1.7-2.3) mg/dL Total Bilirubin (0.15-1.2) mg/dL AST (0-32) U/L ALT (0-33) U/L Alkaline Phosphata se (35-105) IU/L Creatine Kinase (26-192) U/L Troponin T Baselin e 37 H (0-10) ng/L C-Reactive Protein (0.0-4.9) mg/L NT-Pro-B Natriuret Pep (0-125) pg/mL Total Protein (6.6-8.7) g/dL Albumin (3.5-5.2) g/dL Globulin (1.3-4.6) g/dL Lipase (13-60) U/L Procalcitonin (0-0.5) ng/mL TSH (0.27-4.20) uIU/ mL Urine Color Yellow (Yellow) Urine Appearance Clear (CLEAR) Urine pH 5 (5-7) Ur Specific Gravit y 1.020 (1.005-1.030) Urine Protein 3+ H (Negative) Urine Glucose (UA) 2+ (Normal) Urine Ketones 1+ H (Negative) Urine Blood 2+ H (Negative) Urine Nitrate Negative (Negative) Urine Bilirubin Neg (Negative) Urine Urobilinogen Norm (Negative) mg/dL Ur Leukocyte Domitila ase Negative (Negative) Urine RBC 0-4 H (0-2) /hpf Urine WBC 0-4 H (0-5) /hpf Ur Squamous Epith Cells 0-4 H (0-5) /hpf Amorphous Sediment 3+ /hpf Urine Bacteria 1+ H (NONE) /hpf Ethyl Alcohol (0-10) mg/dL Serum Ketones (Negative) Blood Type Rho(D) Type Antibody Screen 10/20/20 Range/Units 08:37 WBC (4.0-10.0) 10^3/ uL RBC (4.1-5.3) 10^6/u L Hgb (11.5-15.3) g/dL Hct (37.0-47.0) % MCV (81-99) fL MCH (28.0-34.0) pg MCHC (30.0-36.0) g/dL RDW (12.1-15.1) % Plt Count (130-400) 10^3/c mm MPV (7.4-10.4) fL Neut % (Auto) % Lymph % (Auto) % [place] % (Auto) % Eos % (Auto) % Baso % (Auto) % Neut # (Auto) (1.8-7.7) 10^3/u L Lymph # (Auto) (0.8-4.8) 10^3/u L [place] # (Auto) (0.2-0.9) 10^3/u L Eos # (Auto) (0.0-0.8) 10^3/u L Baso # (Auto) (0.0-0.1) 10^3/u L Nucleated RBC % (a uto) % Nucleated RBCs # /100WBC PT (12.1-14.9) SECO NDS INR (0.8-1.2) APTT (23.9-36.7) SECO NDS Specimen Type Sample Site ABG pH (7.35-7.45) ABG pCO2 (35-45) mmHg ABG pO2 (80.0-100.0) mmH g ABG HCO3 (22-26) mmol/L ABG Base Excess (-2.0-2.0) mmol/ L [facility] Test Hematocrit (37-47) % Hgb O2 Saturation (95-100) % Carboxyhemoglobin (0.4-20.1) %THgb Methemoglobin (0.4-1.5) % Total Hemoglobin (12-16) g/dL O2 Delivery Device Concrete Placement Equipment Operator ID Sodium (136-145) mmol/L Potassium (3.5-5.1) mmol/L Chloride (98-107) mmol/L Carbon Dioxide (22-29) mmol/L Anion Gap (5-19) BUN (6-20) mg/dL Creatinine (0.5-0.9) mg/dL GFR Calculation (90-130) mL/min Glucose (65-115) mg/dL Calculated Osmolal ity (285-295) mOsm/k g Lactic Acid (0.5-2.2) mmol/L Lactate (0.5-2.2) mmol/L Calcium (8.5-10.5) mg/dL Magnesium (1.7-2.3) mg/dL Total Bilirubin (0.15-1.2) mg/dL AST (0-32) U/L ALT (0-33) U/L Alkaline Phosphata se (35-105) IU/L Creatine Kinase 753 H* (26-192) U/L Troponin T Baselin e (0-10) ng/L C-Reactive Protein (0.0-4.9) mg/L NT-Pro-B Natriuret Pep (0-125) pg/mL Total Protein (6.6-8.7) g/dL Albumin (3.5-5.2) g/dL Globulin (1.3-4.6) g/dL Lipase (13-60) U/L Procalcitonin (0-0.5) ng/mL TSH (0.27-4.20) uIU/ mL Urine Color (Yellow) Urine Appearance (CLEAR) Urine pH (5-7) Ur Specific Gravit y (1.005-1.030) Urine Protein (Negative) Urine Glucose (UA) (Normal) Urine Ketones (Negative) Urine Blood (Negative) Urine Nitrate (Negative) Urine Bilirubin (Negative) Urine Urobilinogen (Negative) mg/dL Ur Leukocyte Domitila ase (Negative) Urine RBC (0-2) /hpf Urine WBC (0-5) /hpf Ur Squamous Epith Cells (0-5) /hpf Amorphous Sediment /hpf Urine Bacteria (NONE) /hpf Ethyl Alcohol (0-10) mg/dL Serum Ketones (Negative) Blood Type Rho(D) Type Antibody Screen Discharge Plan Discharge Patient Disposition: Admitted As Inpatient Clinical Impression: Sepsis, Hypokalemia, Constipation, CHF (congestive heart failure) Condition: Stable Prescriptions: No Action morphine 30 mg tablet extended release 30 mg PO Q12H 30 Days Qty: 60 RF: 0 furosemide 20 mg tablet 40 mg PO BID Qty: 120 RF: 3 tizanidine 4 mg tablet 8 mg PO TID PRN (Reason: muscle spasticity) 30 Days Qty: 180 RF: 3 ondansetron HCl 4 mg tablet 4 mg PO Q8H PRN (Reason: nausea and vomiting) Qty: 20 RF: 0 potassium chloride 10 mEq capsule, extended release 10 meq PO DAILY RF: 0 zolpidem 5 mg tablet 5 mg PO BEDTIME PRN (Reason: Sleep) RF: 0 hydrochlorothiazide 12.5 mg tablet 12.5 mg PO DAILY RF: 0 hydromorphone [Dilaudid] 2 mg tablet 2 mg PO Q4H PRN (Reason: pain) Qty: 7 RF: 0 pantoprazole 40 mg tablet,delayed release (DR/EC) 40 mg PO BID@08,20 RF: 0 Briviact 25 mg tablet 25 mg PO DAILY@08 RF: 0 hydrocodone-acetaminophen 5-325 mg tablet 1 tab PO Q4H PRN (Reason: Pain) RF: 0 lorazepam 0.5 mg tablet 0.5 mg PO BID PRN (Reason: Seizures) RF: 0 Referrals: Yony Otero MD [Primary Care Provider] - Sign Out Sign Out Data: Patient Sign Out occurred on 10/20/20 at 07:44. Patient's care was discussed, and care was transferred from to Osmel Segovia DO. Coding Level of Care Code ED Passenger Service Manager for Chg Fwd Exam Comprehensive
--- NOTE | 2020-10-20 07:39 | PC.NURSE ---
Patient announced that she was going to have a seizure. Patient then flopped her arms and legs for approximately 10 seconds while remaining awake and talking to me and visitor. No AMS following the episode.
[2020-10-20] MEDS: HYDROmorphone 1 mg/mL INJ 1 mL 0.5 MG IVP ×2 (07:45→10:52)
--- NOTE | 2020-10-20 07:59 | PC.NURSE ---
Patient has 20G located at right AC that is not documented. The site is infiltrated. The line will be removed.
[2020-10-20] MEDS: lidocaine 1% 5 ML in potassium chloride premix 100 ML 25 ML IV (08:03)
[2020-10-20] MEDS: levofloxacin-dextrose 5 % 750 MG/150 ML PREMIX 100 MG IV (08:04)
[2020-10-20 08:08] LABS: Blood Urine 2+ (Negative); Glucose Urine UA 2+ (Normal); Ketones Urine 1+ (Negative); Nitrate Urine Negative (Negative); Protein Urine 3+ (Negative); Urine Appearance Clear (CLEAR); Urine Color Yellow (Yellow); pH Urine 5 (5-7)
[2020-10-20 08:09] LABS: Add Urine Culture? No; Add Urine Microscopic? YES; Amorphous Sediment Urine 3+ /hpf; Bacteria Urine 1+ /hpf; Bilirubin Urine Neg (Negative); Leukocyte Esterase Urine Negative (Negative); RBC Urine 0-4 /hpf (0-2); Squamous Epithelial Cell Urine 0-4 /hpf (0-5); Urobilinogen Urine Norm (Negative); WBC Urine 0-4 /hpf (0-5)
--- NOTE | 2020-10-20 08:25 | ECG_ITS ---
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 [id number]
--- NOTE | 2020-10-20 08:35 | USCV_ITS ---
Eleanor Ragland Age: 40 Gender: F : 1980 Exam Date: 10/20/2020 08:38 Ordering Phys: Osmel Segovia DO Technologist: Rea Peres Exam Location: [facility] [place] Indication: N/V/PAIN LT SIDE ELEV BNP BP: 150 / 106 HR: 140 Rhythm: Sinus Technical Quality: Suboptimal MEASUREMENTS (Male / Female) Normal Values 2D ECHO LV Diastolic Diameter PLAX 3.8 cm 4.2 - 5.9 / 3.9 - 5.3 cm LV Systolic Diameter PLAX 1.7 cm LV Chamber Size 4.1 cm IVS Diastolic Thickness 1.9 cm 0.6 - 1.0 / 0.6 - 0.9 cm IVS Systolic Thickness 2.2 cm LVPW Diastolic Thickness 1.1 cm 0.6 - 1.0 / 0.6 - 0.9 cm LVPW Systolic Thickness 1.9 cm RV Chamber Size 1.9 cm LVOT Diameter 2.0 cm LV Ejection Fraction 2D Teich 86.6 % LA Diameter 3.6 cm LA Width 3.5 cm LA Height 3.9 cm RA Width 2.0 cm RA Height 3.1 cm Aorta at Sinotubular Diameter 2.5 cm M-MODE LV Diastolic Diameter MM 5.2 cm 4.2 - 5.9 / 3.9 - 5.3 cm LV Systolic Diameter MM 1.8 cm LV Ejection Fraction MM Teich 92.6 % IVS Diastolic Thickness MM 1.3 cm 0.6 - 1.0 / 0.6 - 0.9 cm IVS Systolic Thickness MM 2.0 cm LVPW Diastolic Thickness MM 1.2 cm 0.6 - 1.0 / 0.6 - 0.9 cm LVPW Systolic Thickness MM 1.8 cm Aortic Annulus Diameter 2.3 cm LA Ao Ratio MM 1.9 MV E Point Septal Separation 0.6 cm DOPPLER LVOT Peak Velocity 257.0 cm/s MV Area PHT 14.7 cm squared Mitral E to A Ratio 1.1 MV E' Velocity 93.5 cm/s Mitral E to MV E' Ratio 15.1 Mitral E to LV E' Lateral Ratio 18.6 Mitral E to LV E' Septal Ratio 12.8 TV Peak E Velocity 39.0 cm/s PV Peak Velocity 131.0 cm/s FINDINGS Left Ventricle Small left ventricle cavity. Increased left ventricular wall thickness more pronounced in basal septal wall. Hyperdynamic left ventricular systolic function. Left ventricular ejection fraction is estimated at 75-80%. No diagnostic regional wall motion abnormality. Right Ventricle Normal right ventricular size and systolic function. Right Atrium Normal right atrial size. Left Atrium Mildly increased left atrial size. Mitral Valve Structurally normal mitral valve. Probably redundant chordae with systolic anterior motion of chordae and anterior mitral valve leaflet. No mitral valve stenosis. Mild mitral valve regurgitation. Aortic Valve Aortic valve not well visualized. Probably trileaflet aortic valve. Flow acceleration noted through aortic valve. Left ventricular outflow tract resting gradient of 26 mmHg. No aortic valve stenosis. Tricuspid Valve Structurally normal tricuspid valve. Pulmonic Valve Pulmonic valve not well visualized. Pericardium No pericardial effusion. Aorta Normal size aortic root and proximal ascending aorta. CONCLUSIONS 1. Small left ventricle cavity. Increased left ventricular wall thickness more pronounced in basal septal wall. Hyperdynamic left ventricular systolic function. Left ventricular ejection fraction is estimated at 75-80%. No diagnostic regional wall motion abnormality. 2. Normal right ventricular size and systolic function. 3. Probably redundant chordae with systolic anterior motion of chordae and anterior mitral valve leaflet. No mitral valve stenosis. Mild mitral valve regurgitation. 4. Flow acceleration noted through aortic valve. Left ventricular outflow tract resting gradient of 26 mmHg. 5. There may not have been any significant change when compared to old echocardiogram dated 09/10/17. Sola Espitia MD (Electronically Signed) Final Date: 20 October 2020 17:51 S
[2020-10-20 09:13] LABS: Lactic Sepsis W/Reflex 2.5 mmol/L (0.5-2.2); Troponin(5th) Baseline 37 ng/L (0-10)
--- NOTE | 2020-10-20 09:28 | P.HP_ITS ---
Providers/Chief Complaint Primary Care Provider: Yony Otero MD Chief Complaint: n/v, bloody vomit History of Present Illness Eleanor Ragland is a 40 year old female who presents to the emergency department with history of vomiting since Tuesday. She reports she is vomited a little bit of coffee-ground emesis. Perhaps a little bit of bright red blood. Last bowel movement was yesterday. She is normally constipated and this bowel movement was hard as well. She had this after taking some laxatives. No significant shortness of breath. She states her nose is stuffy, which always happens when she vomits. No chest discomfort but is having abdominal discomfort left upper quadrant. She reports this is consistent with her pancreatitis. She believes she had fever, on Tuesday that was 101.7. She reports she is had some shakes since then, and some seizures. She takes as needed Ativan for this. History is significantly convoluted. She denies any previous history of angiogram, myocardial infarction. She reports history of fluid overload and CHF in the past. She states her last EGD and colonoscopy were about 6 years ago. She was to have an EGD on the but reports she did get a Covid test so she could not have it. However, she also relates to me that she had Covid on September 03, which I confirmed in the computer setting which would have negated any other screening needed. She had not urinated for quite some time so Preston catheter was placed in the ER, and 900 cc of urine was noted. She also has a history of a PEG tube placement, for past multiple episodes of vomiting, but this was removed previously. Note that she also had dental surgery, molar removal, 2 weeks ago. She denies any jaw pain currently. Review of Systems General: Reports: 10 or more systems reviewed and unremarkable except in HPI and below Const: Reports: fever(s) and chills Eyes: Denies: change in vision Card: Denies: chest pain Resp: Denies: dyspnea GI: Reports: abdominal pain, nausea, vomiting and coffee ground emesis : Denies: flank pain Musc: Denies: neck pain Skin/Breast: Denies: rash Neuro: Denies: headache(s) Psych: Denies: anxiety or depression Endo: Denies: polyuria Benjy/Lymph: Denies: easy bruising All/Imm: Denies: urticaria Medications/Allergies Home Medications Medication Instructions Recorded Confirmed Last Taken Type furosemide 20 mg tablet 40 mg PO BID #120 tab 03/11/20 09/23/20 08/05/20 Rx 20 mg tizanidine 4 mg tablet 8 mg PO TID PRN 30 Days #180 tab 06/30/20 09/23/20 08/06/20 Rx 4 mg ondansetron HCl 4 mg tablet 4 mg PO Q8H PRN #20 tab 07/08/20 09/23/20 08/05/20 Rx hydrochlorothiazide 12.5 mg PO DAILY 07/17/20 09/23/20 08/06/20 History potassium chloride 10 meq PO DAILY 07/17/20 09/23/20 08/05/20 History zolpidem 5 mg PO BEDTIME PRN 07/17/20 09/23/20 08/05/20 History hydromorphone [Dilaudid] 2 mg PO Q4H PRN #7 tab 09/06/20 09/23/20 Unknown Rx morphine 30 mg tablet,extended 30 mg PO Q12H 30 Days #60 tab 09/23/20 09/23/20 Unknown Rx release brivaracetam [Briviact] 25 mg PO DAILY@08 10/20/20 10/20/20 Unknown History hydrocodone-acetaminophen 1 tab PO Q4H PRN 10/20/20 10/20/20 Unknown History lorazepam 0.5 mg PO BID PRN 10/20/20 10/20/20 10/17/20 History pantoprazole 40 mg PO BID@,10/20/20 10/20/20 10/19/20 History Allergies Allergy/AdvReac Type Severity Reaction Status Date / Time canagliflozin [From Invokana] Allergy Severe abdominal Verified 10/20/20 05:46 pain aspirin Allergy Unknown Verified 10/20/20 05:46 ketorolac [From Toradol] Allergy Unknown Verified 10/20/20 05:46 tramadol [From Ultram] Allergy Unknown Verified 10/20/20 05:46 PFSH Acute PFSH: Medical History (Updated 10/20/20 @ 09:40 by Richard Sequeira MD) Chronic pain of lower extremity, bilateral 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 Constipation Diabetes Epilepsy Essential (primary) hypertension Primary osteoarthritis Recurrent vomiting Surgical History History of bilateral knee replacement History of cholecystectomy History of D&C 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 Family History Grandmother Cancer Lung disease Stroke Mother Lung disease Other A-fib CHF (congestive heart failure) Social History Smoking and tobacco status: never smoked Alcohol intake: never Household members: spouse Housing: House Marital status: Current occupational status: disabled History of recent travel: No Vitals/I&O/Wt Last Vital Signs Temp 97.9 F 10/20/20 05:39 Pulse 120 H 10/20/20 06:30 Resp 24 H 10/20/20 06:30 BP 163/131 10/20/20 06:15 Pulse Ox 96 10/20/20 06:30 10/19/20 10/20/20 10/20/20 22:59 06:59 14:59 Intake Total 1000 / 1000 Output Total 200 / 200 Balance 800 / 800 Weight last 48 hrs Weight 67.132 kg Physical Exam Narrative: EXAM NARRATIVE: General exam is a white female, reporting abdominal pain and nausea HEENT: Pupils equally round. Oropharynx clear. Neck is supple no lymphadenopathy or thyromegaly Cardiovascular tachycardic. No murmur. Lungs clear no wheezing or crackles Abdomen is soft. Bowel sounds are noted. Tenderness is present in the left upper quadrant. demonstrates Preston Extremities no cyanosis clubbing or edema, cap refill less than 2 seconds Skin no rash Neuro no focal deficits Urinary Catheter Management^: Preston: Cath Placed During This Visit: no Data : 10/20/20 05:45 10/20/20 05:45 Micro: Microbiology 10/20/20 07:13 Blood Culture - Preliminary Blood SPECIMEN COLLECTED 10/20/20 06:45 Blood Culture - Preliminary Blood SPECIMEN COLLECTED Other data: Urinalysis shows 0-4 whites, 0-4 reds and 3+ protein. Procalcitonin 0.27 BNP 26,474 Troponin 37 at baseline LFTs normal with exception of alk phos of 130 Lactate 7.4 Calcium 10.8 ABG demonstrates a pH of 7.47 PCO2 33, PO2 89 INR is 1.08 CTA demonstrates no pulmonary embolism, left adrenal mass, fullness pancreatic head. Note that recent MR MARY JO demonstrated no pancreatic neoplasm Chest x-ray low lung volumes. I reviewed this myself and confirmed with reading CT abdomen and pelvis demonstrated no acute process on read and indeterminate left adrenal mass. Per my read she has significant amounts of stool as well. Full bladder is noted. EKG demonstrates sinus tachycardia, borderline left axis deviation, T wave in version 1, V4 through 6. Q waves are noted in 3, aVF. A&P Assessment and plan (1) Recurrent vomiting: Zofran for nausea Reglan for breakthrough nausea N.p.o. except meds Status: Inactive (2) Constipation: Suppository currently After dehydration is improved consider adding stool softener Status: Inactive (3) Acute kidney injury: Hydration Status: Acute (4) Hypokalemia: Supplement potassium Check magnesium Status: Acute (5) Sepsis: Concern of sepsis secondary to tachycardia, leukocytosis, potential focus secondary to 2-week weeks ago dental surgery. Now with abdominal pain and constipation which could contribute to translocation of bacteria. Does not meet criteria for aggressive fluid resuscitation secondary to her significantly elevated BNP. Cautious fluid administration will be given as long as she is not hypotensive. Status: Acute (6) Urinary retention: Continue Preston placed in the emergency department. Constipation and pain medication may have contributed to urinary retention Status: Acute (7) Hypercalcemia: Likely secondary to dehydration Status: Acute (8) Adrenal mass: Plasma metanephrines, aldosterone, renin, cortisol random Outpatient follow-up Status: Acute (9) GI bleed: Initiate Protonix IV N.p.o. for now Consult for EGD Status: Acute (10) Hypertensive urgency: Hydralazine as needed Initiate beta-bimal Add NTG ointmentcurrently Continue to monitor blood pressures closely Check TSH Check echocardiogram Status: Acute Additional A&P Information History of seizure disorders. Continue home medication. She will need to bring this in from home as this is not available on formulary here. Seizure precautions. Diabetes mellitus, sliding scale insulin Chronic pain, which the patient reports is in her legs as well as her abdomen. She reports she has history of pancreatitis contributing and believes her pain currently in her abdomen may be secondary to this as well. Dilaudid as needed. Add long-acting morphine back when patient is no longer vomiting Multiple other medical problems as outlined in her past medical history. Full code SCDs for DVT prophylaxis secondary to concern of bleeding Attestations Medical Necessity Statement*: Will need greater than 2 midnight stay for evaluation and treatment of abdominal pain vomiting GI bleed sepsis. Critical Care Time: Critical Care Time (min): 56 Other Attestations: The high probability of a clinically significant, sudden or life threatening deterioration of the patient's [sepsis, cardiac, renal, adrenal, gastrointestinal bleeding] system(s) required my full and direct attention, intervention and personal management. The critical care time is as shown. This time is in addition to time spent performing any reported procedures but includes the following: [x] Data and vital sign review and interpretation [x] Patient assessment, examination and intervention [x] Documentation [x] Medication orders and management Coding Level of Care Code Acute Disabilities Services Officer for [facility] Fwd Diagnoses Recurrent vomiting R11.10 Constipation K59.00 Acute kidney injury N17.9 Hypokalemia E87.6 Sepsis A41.9 Urinary retention R33.9 Hypercalcemia E83.52 Adrenal mass E27.8 GI bleed K92.2 Hypertensive urgency I16.0
[2020-10-20] MEDS: LORazepam 2 mg/mL INJ 1 mL 1 MG IVP ×4 (09:35→23:17)
--- NOTE | 2020-10-20 09:36 | PC.NURSE ---
Patient sitting on end of bed while yelling I want to get up . Patient told she could not get up and advised to sit back in bed.
--- NOTE | 2020-10-20 10:25 | ECG_ITS ---
[facility] Test Date: 2020-10-20 Pat Name: Eleanor Ragland Department: Room: Gender: Female Staff Readiness Officer: : 1980 Requested By: Osmel Spivey Order Number: [id number] Dianna MD: Дмитрий Brito M.D. Measurements Intervals [place] Rate: 111 P: 59 NE: 125 QRS: 3 QRSD: 87 T: 239 QT: 362 QTc: 494 Interpretive Statements SINUS TACHYCARDIA POSSIBLE LEFT ATRIAL ENLARGEMENT [-0.1mV P WAVE IN V1/V2] MODERATE T-WAVE ABNORMALITY, CONSIDER ANTEROLATERAL ISCHEMIA [-0.1+ mV T WAVE IN V3-V6] MODERATE T-WAVE ABNORMALITY, CONSIDER INFERIOR ISCHEMIA [-0.1+ mV T WAVE IN II/aVF] Compared to ECG 10/20/2020 11:02:41 T-wave abnormality now present Possible ischemia now present Left ventricular hypertrophy no longer present ST (T wave) deviation no longer present Myocardial infarct finding no longer present Electronically Signed On 10-20-2020 18:54:14 E COMMERCE DIRECTOR by Дмитрий Brito M.D. [id number]
[2020-10-20 10:28] LABS: Reflex Lactate Order REFLEX LACTIC ORDERD
[2020-10-20] MEDS: nitroglycerin 1 gm/inch oint Pkt 1 INCH TOPICAL ×2 (10:45→21:15)
[2020-10-20 10:50] LABS: Creatine Phosphokinase 753 U/L (26-192)
[2020-10-20 10:51] LABS: Magnesium 1.6 mg/dL (1.7-2.3)
--- NOTE | 2020-10-20 10:54 | PC.NURSE ---
1000 mL bag hung at 0630 did not infuse due to infiltrated line. EMR system will not allow for correction.
--- NOTE | 2020-10-20 12:01 | PC.NURSE ---
IV along left arm has infiltrated
[2020-10-20] MEDS: piperacillin-tazobactam 3.375 GM in sodium chloride 0.9% (plus) 50 ML IV ×2 (12:30→19:59)
[2020-10-20 13:25] LABS: Troponin 5 2HR 32.87 ng/L (0-10)
[2020-10-20 13:26] LABS: Lactic Acid level (Lactate) 2.1 mmol/L (0.5-2.2)
[2020-10-20 13:27] LABS: Troponin 5 2HR Delta -4.13 ABS# (0-10)
[2020-10-20] MEDS: metoprolol tartrate 1 mg/1 mL SDV 5 mL 5 MG IV (13:46)
--- NOTE | 2020-10-20 14:25 | ECG_ITS ---
[facility] Test Date: 2020-10-20 Pat Name: Eleanor Ragland Department: Room: Gender: Female Pie Maker: : 1980 Requested By: Osmel Spivey Order Number: [id number] Dianna MD: Дмитрий Brito M.D. Measurements Intervals [place] Rate: 125 P: 64 NM: 134 QRS: 0 QRSD: 79 T: 209 QT: 308 QTc: 445 Interpretive Statements SINUS TACHYCARDIA LEFT VENTRICULAR HYPERTROPHY AND ST-T CHANGE [VOLTAGE CRITERIA PLUS ST/T ABNORMALITY] POSSIBLE INFERIOR MYOCARDIAL INFARCTION , OF INDETERMINATE AGE [30 ms Q WAVE IN II/aVF] Compared to ECG 10/20/2020 09:25:34 No significant changes Electronically Signed On 10-20-2020 18:54:03 CURING OVEN ATTENDANT by Дмитрий Brito M.D. [id number]
[2020-10-20] MEDS: vancomycin 1,000 MG in sodium chloride 0.9% 250 ML 250 MG IV (14:53)
[2020-10-20 15:15] LABS: Cortisol Random 48.13 ug/mL (2.47-19.5)
[2020-10-20 15:17] LABS: Troponin 5 6HR 30.26 ng/L (0-10)
[2020-10-20 15:24] LABS: Troponin 5 6HR Delta -6.74 ng/L (0-12)
--- NOTE | 2020-10-20 16:59 | P.CONIM_ITS ---
Providers/Reason For Consult Consulting Physican/Specialty*: Internal medicine/endoscopy Reason for Consult*: Intractable nausea and vomiting. Attending Physician: Richard Sequeira MD Primary Care Provider: Yony Otero MD History of Present Illness History of Present Illness Eleanor Ragland is a 40 year old female who for the past couple months has had multiple paroxysms of intractable vomiting. She came originally with a complaint and I set her up for an EGD. She tested positive for Covid very promptly after that visit, and it was felt perhaps that some of her GI symptoms were related to having Covid. We did however want to go ahead and proceed with her EGD. We rescheduled her for our October 06 but something happened and she fell through the cracks and did not get that. She presented the emergency department again with another paroxysm and may have had some coffee-ground emesis and may have had some fever earlier in the weekend. She spent the day in the emergency room waiting for a room as she is clinically dehydrated. She is tachyarrhythmic and her hemoglobin is concentrated as well as her creatinine is elevated some. Her CT reveals copious amounts of stool, which most assuredly could contribute to her nausea and vomiting. Review of Systems General: Reports: 10 or more systems reviewed and unremarkable except in HPI and below Meds/Allergies Home Medications and Allergies Home Medications Medication Instructions Recorded Confirmed Last Taken Type furosemide 20 mg tablet 40 mg PO BID #120 tab 03/11/20 10/20/20 08/05/20 Rx 20 mg tizanidine 4 mg tablet 8 mg PO TID PRN 30 Days #180 tab 06/30/20 10/20/20 08/06/20 Rx 4 mg ondansetron HCl 4 mg tablet 4 mg PO Q8H PRN #20 tab 07/08/20 10/20/20 10/19/20 Rx hydrochlorothiazide 12.5 mg PO DAILY 07/17/20 10/20/20 08/06/20 History potassium chloride 10 meq PO DAILY 07/17/20 10/20/20 08/05/20 History zolpidem 5 mg PO BEDTIME PRN 07/17/20 10/20/20 08/05/20 History hydromorphone [Dilaudid] 2 mg PO Q4H PRN #7 tab 09/06/20 10/20/20 Unknown Rx morphine 30 mg tablet,extended 30 mg PO Q12H 30 Days #60 tab 09/23/20 10/20/20 10/19/20 Rx release brivaracetam [Briviact] 25 mg PO DAILY@08 10/20/20 10/20/20 Unknown History hydrocodone-acetaminophen 1 tab PO Q4H PRN 10/20/20 10/20/20 Unknown History lorazepam 0.5 mg PO BID PRN 10/20/20 10/20/20 10/17/20 History pantoprazole 40 mg PO BID@,10/20/20 10/20/20 10/19/20 History Allergies Allergy/AdvReac Type Severity Reaction Status Date / Time canagliflozin [From Invokana] Allergy Severe abdominal Verified 10/20/20 05:46 pain aspirin Allergy Unknown Verified 10/20/20 05:46 ketorolac [From Toradol] Allergy Unknown Verified 10/20/20 05:46 tramadol [From Ultram] Allergy Unknown Verified 10/20/20 05:46 Current Medications Current Medications Generic Name Dose Route Start Last Admin Trade Name Freq PRN Reason Stop Dose Admin Hydromorphone HCl 1 mg 10/20/20 14:36 10/20/20 14:53 Hydromorphone 1 Mg/Ml Inj 1 Ml IVP 1 mg Q4H PRN Administration PAIN Piperacillin Sod/Tazobactam 50 mls @ 50 mls/hr 10/20/20 12:00 10/20/20 12:30 Sod 3.375 gm/ Sodium Chloride IV 50 mls/hr Q8H LEANDRA Administration Protocol Vancomycin HCl 1,000 mg/ 250 mls @ 250 mls/hr 10/20/20 11:00 10/20/20 14:53 Sodium Chloride IV 250 mls/hr Q24H LEANDRA Administration Protocol Nitroglycerin 1 inch 10/20/20 10:39 10/20/20 10:45 Nitroglycerin 1 Gm/Inch Oint Pkt TOPICAL 1 inch Q6H LEANDRA Administration PFSH Acute PFSH: Medical History (Updated 10/20/20 @ 17:03 by Yony Otero MD) Chronic pain of lower extremity, bilateral 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 Constipation Diabetes Epilepsy Essential (primary) hypertension Primary osteoarthritis Recurrent vomiting Surgical History History of bilateral knee replacement History of cholecystectomy History of D&C 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 Family History Grandmother Cancer Lung disease Stroke Mother Lung disease Other A-fib CHF (congestive heart failure) Social History Smoking and tobacco status: never smoked Alcohol intake: never Household members: spouse Housing: House Marital status: Current occupational status: disabled History of recent travel: No Vitals/I&O/Wt Last Vital Signs Temp 97.9 F 10/20/20 05:39 Pulse 118 H 10/20/20 15:00 Resp 14 10/20/20 15:00 BP 158/109 10/20/20 15:00 Pulse Ox 97 10/20/20 15:00 10/20/20 10/20/20 10/20/20 06:59 14:59 22:59 Intake Total 1000 / 1000 Output Total 200 / 200 Balance 800 / 800 Weight last 48 hrs Weight 148 lb Physical Exam Const: COMMON NORMALS: no acute distress, alert and well nourished GENERAL APPEARANCE: cooperative, well kempt, well developed and well hydrated; does not appear older than stated age ORIENTATION/CONSCIOUSNESS: Yes oriented to person, Yes oriented to place and Yes oriented to time HENMT: COMMON NORMALS: normocephalic, external ears normal and TM's normal bilaterally HEAD & SCALP: normocephalic EXTERNAL EAR: Yes external ears normal TYMPANIC MEMBRANE: TM's normal bilaterally MOUTH: Normal oral and palatal mucosa present Eye: COMMON NORMALS: Equal, round and reactive pupils present GENERAL EYE: appearance normal, both eyes and all related structures and normal light reflex VISUAL ACUITY: Yes acuity normal PUPIL: Yes Equal, round and reactive pupils present DIRECT OPHTHALMOSCOPY: Yes normal light reflex Neck/C-Spine: COMMON NORMALS: full ROM, no lymphadenopathy, supple, no JVD, Thyroid normal and No carotid bruits GENERAL: Yes trachea midline THYROID: Thyroid normal, no masses and nontender Lymph: LYMPHATIC: no lymphadenopathy noted Chest: CHEST: Yes Symmetrical chest wall rise Resp: COMMON NORMALS: normal respiratory effort and clear to auscultation bilaterally AUSCULTATION: clear to auscultation bilaterally Cardio: COMMON NORMALS: no JVD, regular rhythm and No murmurs present (Cardio) PALPATION: normal PMI RHYTHM: regular rhythm GI: COMMON NORMALS: no masses and no bruits; negative for non-tender INSPECTION: Yes normal to inspection, No scar and No striae AUSCULTATION: Yes normoactive bowel sounds PALPATION: No Guarding due to palpation present (GI), No Rigid due to palpation, No Hernia present and No Rebound tenderness present PERCUSSION: normal to percussion RECTAL EXAM: deferred OTHER: She has some perhaps vague tenderness in the left upper quadrant. : EXTERNAL FEMALE EXAM: No Hernia present Back/Pelvis: COMMON NORMALS: thoracic and lumbar spine normal to inspection GENERAL BACK: No tenderness Extremity: COMMON NORMALS: normal to inspection, no clubbing, cyanosis or edema and no calf tenderness Neuro: SENSORIUM/ORIENTATION: Yes alert, Yes oriented to person, Yes oriented to place and Yes oriented to time CRANIAL NERVES: Yes CN normal except as noted MOTOR EXAM: 5/5 motor strength present throughout Psych: COMMON NORMALS: mental status grossly normal APPEARANCE: Yes grossly normal and Yes well kempt ATTITUDE: Yes calm Skin: COMMON NORMALS: turgor normal GENERAL SKIN EXAM: turgor normal and no scars LESIONS: no lesions TRAUMA: no lacerations or abrasions Urinary Catheter Management^: Preston: Cath Placed During This Visit: no Data Micro: Micro: Microbiology 10/20/20 07:13 Blood Culture - Pr eliminary Blood SPECIMEN [facility] 10/20/20 06:45 Blood Culture - Pr eliminary Blood SPECIMEN [facility] A&P Assessment and plan (1) GI bleed: Status: Acute (2) Postprandial abdominal pain in right upper quadrant: Status: Acute (3) Recurrent vomiting: I will proceed with the aforementioned EGD as an inpatient. She will likely be n.p.o. in the morning and if she is stable I will do her EGD in the morning. If it takes a little longer to stabilize her, then we will plan on doing that forthcoming. Status: Acute Coding Level of Care Code Acute Obstetric Anaesthetist for [facility] Fwd Exam Comprehensive Diagnoses GI bleed K92.2 Postprandial abdominal pain in right upper quadrant R10.11 Recurrent vomiting R11.10 Comment Please allow Marla Hamlin to proceed with this chart.
[2020-10-20 19:17] LABS: Glucose Point of Care 140 mg/dL (70-110)
[2020-10-20] MEDS: sodium chloride 0.9% 1,000 ML 100 ML IV (19:58)
[2020-10-20] MEDS: pantoprazole 40 mg SDV IVP (20:14)
[2020-10-20 21:02] LABS: Glucose Point of Care 118 mg/dL (70-110)
[2020-10-20] MEDS: metoprolol tartrate 25 mg Tablet PO (21:14)
[2020-10-21] VITALS (87 sets, daily range): BP systolic 109–207; BP diastolic 68–123; PULSE 0–135; RESP 0–27; TEMP 36.9–37.6; O2SAT 90–100; BMI 30.4
[2020-10-21] MEDS: hyDRALAzine 20 mg/mL INJ 1 mL 10 MG IVP ×2 (00:33→15:11)
[2020-10-21] MEDS: ondansetron 2 mg/ML SDV 2 mL 4 MG IVP ×3 (01:24→15:55)
[2020-10-21] MEDS: metoclopramide 5 mg/mL SDV 2 mL 10 MG IVP ×2 (02:56→11:45)
[2020-10-21] MEDS: HYDROmorphone 1 mg/mL INJ 1 mL IVP ×5 (03:25→20:07)
[2020-10-21] MEDS: nitroglycerin 1 gm/inch oint Pkt 1 INCH TOPICAL ×4 (04:13→22:44)
[2020-10-21] MEDS: piperacillin-tazobactam 3.375 GM in sodium chloride 0.9% (plus) 50 ML IV ×3 (04:13→18:34)
[2020-10-21 04:22] LABS: Basophils # 0.1 10^3/uL (0.0-0.1); Basophils % 0.4 %; Eosinophils % 0.1 %; Hematocrit 48.2 % (37.0-47.0); Hemoglobin 14.6 g/dL (11.5-15.3); Lymphocytes # 2.6 10^3/uL (0.8-4.8); Lymphocytes % 13.7 %; Mean Corpuscular HGB Conc 30.3 g/dL (30.0-36.0); Mean Corpuscular Hemoglobin 30.4 pg (28.0-34.0); Mean Corpuscular Volume 100.4 fL (81-99); Mean Platelet Volume 11.9 fL (7.4-10.4); Monocytes # 1.2 10^3/uL (0.2-0.9); Monocytes % 6.4 %; Neutrophils # 14.95 10^3/uL (1.8-7.7); Neutrophils % 78.8 %; Nucleated Red Blood Cells % 0 %; Platelet Count 247 10^3/cmm (130-400); Red Cell Distribution Width 14.5 % (12.1-15.1)
[2020-10-21 04:48] LABS: Magnesium 1.9 mg/dL (1.7-2.3)
[2020-10-21 05:20] LABS: Albumin Level 3.5 g/dL (3.5-5.2); Alkaline Phosphatase 77 IU/L (35-105); Blood Urea Nitrogen 9 mg/dL (6-20); Calcium 9.3 mg/dL (8.5-10.5); Carbon Dioxide 18 mmol/L (22-29); Chloride 103 mmol/L (98-107); Globulin 3.2 g/dL (1.3-4.6); Glomerular Filtration Rate 136.6 mL/min (90-130); Glucose 131 mg/dL (65-115); Osmolality Calculated 286 mOsm/kg (285-295); Sodium 138 mmol/L (136-145); Total Bilirubin 0.6 mg/dL (0.15-1.2); Total Protein 6.7 g/dL (6.6-8.7)
[2020-10-21 05:54] LABS: Alanine Aminotransferase 12 U/L (0-33); Anion Gap 20.5 (5-19); Aspartate Amino Transferase 28 U/L (0-32); Potassium 3.5 mmol/L (3.5-5.1)
[2020-10-21] MEDS: sodium chloride 0.9% 1,000 ML 100 ML IV ×2 (07:02→18:31)
--- NOTE | 2020-10-21 08:02 | PC.NURSE ---
GLUCOSE 108.
[2020-10-21 08:04] LABS: Glucose Point of Care 108 mg/dL (70-110)
--- NOTE | 2020-10-21 08:04 | P.PN_ITS ---
Subjective Subjective: Interval history: Patient reports her abdominal pain is the same. She still feels nauseated. She feels like she needs to have a bowel movement. Still spitting up some clear substance, mainly ice chips she eats. Relates her discomfort is still in her left upper quadrant. Medications: Reviewed: Yes Vitals/I&O/Wt Last Vital Signs Temp 98.6 F 10/21/20 03:25 Pulse 129 H 10/21/20 07:53 Resp 22 H 10/21/20 07:33 BP 129/85 10/21/20 05:55 Pulse Ox 94 10/21/20 07:53 10/20/20 10/21/20 10/21/20 22:59 06:59 14:59 Intake Total 50 / 100 1000 / 1100 Output Total 150 / 150 Balance 50 / 100 850 / 950 Weight last 48 hrs Weight 70.76 kg Weight 70.76 kg Weight 67.132 kg Physical Exam Narrative: EXAM NARRATIVE: General exam no apparent distress after I calm her down. Blood pressure on average better. Heart rate still high. Neck is supple no lymphadenopathy or thyromegaly Cardiovascular tachycardic. No murmur. Lungs clear no wheezing or crackles Abdomen is soft. Bowel sounds are noted. Tenderness is present in the left upper quadrant. demonstrates Preston Extremities no cyanosis clubbing or edema, cap refill less than 2 seconds Urinary Catheter Management^: Preston: Cath Placed During This Visit: no Reason for Continuing Indwelling Catheter: Accurate Measurement of Urinary Output in Critically Ill Patients Data : 10/21/20 03:50 10/21/20 03:50 Micro: Microbiology 10/20/20 07:13 Blood Culture - Preliminary Blood NEGATIVE TO DATE 10/20/20 06:45 Blood Culture - Preliminary Blood NEGATIVE TO DATE A&P Assessment and plan (1) Recurrent vomiting: Zofran for nausea Reglan for breakthrough nausea N.p.o. except meds Appreciate consult from Dr. Otero. EGD perhaps today continue Protonix currently Status: Acute (2) Constipation: Milk of molasses enema Initiate senna/docusate as well as MiraLAX following EGD Status: Inactive (3) Acute kidney injury: Resolved with hydration Status: Acute (4) Hypokalemia: Supplemented, as well as magnesium Status: Acute (5) Sepsis: Concern of sepsis secondary to tachycardia, leukocytosis, potential focus secondary to 2-week weeks ago dental surgery. Now with abdominal pain and constipation which could contribute to translocation of bacteria. Does not meet criteria for aggressive fluid resuscitation secondary to her significantly elevated BNP. Continue hydration White blood cell count decreasing Blood culture pending Status: Acute (6) Urinary retention: Continue Preston placed in the emergency department. Constipation and pain medication may have contributed to urinary retention Continue Preston currently Status: Acute (7) Hypercalcemia: Calcium normalized this morning, as suspected after hydration Status: Acute (8) Adrenal mass: Plasma metanephrines, aldosterone, renin, cortisol random Outpatient follow-up Status: Acute (9) GI bleed: Continue Protonix IV while n.p.o. After EGD, if no significant findings consider changing to p.o. Status: Acute (10) Hypertensive urgency: Hydralazine as needed Continue metoprolol which was initiated yesterday, and increased dose to 50 mg twice daily Continue nitroglycerin ointment TSH was checked, and normal Echocardiogram demonstrated preserved EF, no change from previous. There is been concerned of some outflow tract obstruction on previous echocardiogram and she could benefit from outpatient follow-up with cardiology for her hypertension as well. Status: Acute Additional A&P Information History of seizure disorders. Continue home medication. She will need to bring this in from home as this is not available on formulary here. Seizure precautions. Diabetes mellitus, sliding scale insulin Chronic pain, which the patient reports is in her legs as well as her abdomen. She reports she has history of pancreatitis contributing and believes her pain currently in her abdomen may be secondary to this as well. Dilaudid as needed. Add long-acting morphine back when patient is no longer vomiting Multiple other medical problems as outlined in her past medical history. Full code SCDs for DVT prophylaxis secondary to concern of bleeding If remains clinically stable, consider transfer out of the ICU this afternoon or tomorrow morning. Attestations Medical Necessity Statement*: Needs continued hospital stay for IV antibiotics secondary to concern of sepsis Coding Level of Care Code Acute Strategic Marketing Specialist for Chg Fwd Diagnoses Recurrent vomiting R11.10 Constipation K59.00 Acute kidney injury N17.9 Hypokalemia E87.6 Sepsis A41.9 Urinary retention R33.9 Hypercalcemia E83.52 Adrenal mass E27.8 GI bleed K92.2 Hypertensive urgency I16.0
--- NOTE | 2020-10-21 08:06 | PC.NURSE ---
traveling secretary called to bring home med called Karla for Sz.
[2020-10-21] MEDS: pantoprazole 40 mg SDV IVP (08:08)
--- NOTE | 2020-10-21 08:51 | PC.CHAP ---
Pastoral Care Encounter/Spiritual Assessment Type of Contact [] Declined asphalt raker visit [] Patient/Family/Request visit [] Outpatient visit [] Follow-up visit [] Physician referral [] Code/Alert [] Routine visit [] Staff referral [] Actively dying [] Patient sleeping [] Family support [] [] Out of room [] Palliative care [] [] Receiving care in room [] Pre-surgical visit [] Trauma [] Long length of stay [x] ICU visit [] Other: Relational/Emotional Strength [] Patient feels connected with others/family/visitors/staff [] Distress [] Loneliness/isolation [] Abandonment Spirituality of Patient [] Person of [place] [] Attends Roman Catholic of their [place] [] Believes in Prayer [] Reads Bible or Mosque materials [] There are Spiritual issues to be addressed Education Dean Interventions [x] Prayer [] Active listening [] Non-anxious presence [] Spiritual/emotional support [] Crisis/trauma care [] Spiritual counseling [] Bereavement support [] Provided bereavement packet [] Provided Bible/devotional materials [] Provided toy/stuffed animal, coloring book to patient or family member [] Provided Communion [] Anointing/Tobyhanna [] Salvation [x] Completed spiritual assessment [] Other: Impact on Illness or Injury [] Angry [] Fearful [] Anxious [] Often cries [] Exhaustion [] Unable to work [] Unable to attend yazidi [] Unable to walk/stand [] Unable to read [] Unable to drive [] Unable to eat/drink [] Unable to sleep [] Unable to be with family [] Patient intubated [] Other: Summary Time spent with patient
[2020-10-21] MEDS: LORazepam 2 mg/mL INJ 1 mL 1 MG IVP ×2 (10:15→18:15)
[2020-10-21] MEDS: metoprolol tartrate 50 mg Tablet PO ×2 (10:23→20:07)
[2020-10-21] MEDS: polyethylene glycol 3350 Pkt 17 gm PO (10:25)
--- NOTE | 2020-10-21 11:14 | P.ANESASSM_ITS ---
Pre-Anesthetic Assessment Pre-Anesthetic Assessment: Height/Weight: Height 1.52 m Weight 70.76 kg Temp Pulse Resp BP Pulse Ox 98.6 F 129 H 18 207/88 96 10/21/20 03:25 10/21/20 10:00 10/21/20 10:00 10/21/20 10:00 10/21/20 10:00 Preop Diagnosis: Gi bleed Proposed Procedure: Operation Date: 10/21/20 12:30 Proposed Procedures p EGD(Not Applicable) - Yony Otero MD Familial anesthetic complications: None Was Beta Julio César taken within 24 hours: N/A Last intake: NPO > 8 hrs Social: Social History: Tobacco and No alcohol Exam: Pre-Anes Outpt Exam: alert, oriented x 3, clear to auscultation bilaterally and regular rate & rhythm Airway: Cervical ROM: WNL MP: 3 Dentition: Other (no teeth) Pulmonary: Comments: pneumonia ([id number] [id number] CV/HEM: CV/HEM: CHF and HTN GI: GI: GERD Comments: gi bleed, vomited up clear stomach contents/gastric secretions earlier Metabolic: Metabolic: DM Neuropsych: Neuropsych: Seizure Anesthetic Plan: ASA status: 4 Anesthesia: MAC Other: MAC if not still vomiting at noon Risk of > 500 ml blood loss (7ml/kg in children): No Meds/Allergies Current Medications: Current Medications Generic Name Dose Route Start Last Admin Trade Name Freq PRN Reason Stop Dose Admin Hydralazine HCl 10 mg 10/20/20 10:39 10/21/20 00:33 Hydralazine 20 M g/Ml Inj 1 Ml IVP 10 mg Q4H PRN Administration HYPERTENSION Hydromorphone HCl 1 mg 10/20/20 14:36 10/21/20 07:33 Hydromorphone 1 Mg/Ml Inj 1 Ml IVP 1 mg Q4H PRN Administration PAIN Sodium Chloride 1,000 mls @ 100 m ls/hr 10/20/20 10:39 10/21/20 07:02 Sodium Chloride 0.9% IV 100 mls/hr .Q10H LEANDRA Administration Vancomycin HCl 1,0 00 mg/ 250 mls @ 250 mls /hr 10/20/20 11:00 10/20/20 14:53 Sodium Chloride IV 250 mls/hr Q24H LEANDRA Administration Protocol Insulin Aspart 0 unit 10/20/20 12:00 10/21/20 08:04 Insulin Aspart 1 00 Unit/1 Ml SUBCUT Not Given WM&BEDTIME LEANDRA Protocol Lorazepam 1 mg 10/20/20 14:36 10/21/20 10:15 Lorazepam 2 Mg/M l Inj 1 Ml IVP 1 mg Q6H PRN Administration ANXIETY Metoclopramide HCl 10 mg 10/20/20 10:39 10/21/20 02:56 Metoclopramide 5 Mg/Ml Sdv 2 Ml IVP 10 mg Q6H PRN Administration NAUSEA AND VOMITI NG Metoprolol Tartrat e 50 mg 10/21/20 09:00 10/21/20 10:23 Metoprolol Tartr ate 50 Mg Tablet PO 50 mg BID@0900,2100 LEANDRA Administration Nitroglycerin 1 inch 10/20/20 10:39 10/21/20 04:13 Nitroglycerin 1 Gm/Inch Oint Pkt TOPICAL 1 inch Q6H LEANDRA Administration Ondansetron HCl 4 mg 10/20/20 10:39 10/21/20 10:15 Ondansetron 2 Mg /Ml Sdv 2 Ml IVP 4 mg Q6H PRN Administration NAUSEA AND VOMITI NG Pantoprazole Sodiu m 40 mg 10/20/20 20:00 10/21/20 08:08 Pantoprazole 40 Mg Sdv IVP 40 mg Q12H LEANDRA Administration Polyethylene Glyco l 17 gm 10/21/20 09:00 10/21/20 10:25 Polyethylene Gly col 3350 Pkt 17 Gm PO 17 gm DAILY LEANDRA Administration PFSH Anesthesia PFSH: Medical History (Updated 10/20/20 @ 17:03 by Yony Otero MD) Chronic pain of lower extremity, bilateral 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 Constipation Diabetes Epilepsy Essential (primary) hypertension Primary osteoarthritis Recurrent vomiting Surgical History History of bilateral knee replacement History of cholecystectomy History of D&C 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 Family History Grandmother Cancer Lung disease Stroke Mother Lung disease Other A-fib CHF (congestive heart failure) Social History (Reviewed 10/20/20 @ 08:19 by STEPHANY Fulton Smoking and tobacco status: never smoked Alcohol intake: never Household members: spouse Housing: House Marital status: Current occupational status: disabled History of recent travel: No Data Anesthesia CBC & Chem 7: 10/21/20 03:50 10/21/20 03:50 Other Labs: Laboratory Results - last 48 hr 10/20/20 10/20/20 10/20/20 05:45 05:45 05:45 WBC 23.5 H RBC 6.10 H Hgb 18.2 H Hct 54.5 H MCV 89.3 MCH 29.8 MCHC 33.4 RDW 14.2 Plt Count 502 H MPV 11.6 H Neut % (Auto) 78.7 Lymph % (Auto) 15.5 Pope % (Auto) 4.9 Eos % (Auto) 0.0 Baso % (Auto) 0.3 Neut # (Auto) 18.45 H Lymph # (Auto) 3.6 Pope # (Auto) 1.2 H Eos # (Auto) 0.0 Baso # (Auto) 0.1 Nucleated RBC % (auto) 0 Nucleated RBCs # 0.0 PT INR APTT Specimen Type Sample Site ABG pH ABG pCO2 ABG pO2 ABG HCO3 ABG Base Excess [place] Test Hematocrit Hgb O2 Saturation Carboxyhemoglobin Methemoglobin Total Hemoglobin O2 Delivery Device Accountant Assistant ID Sodium 143 Potassium 3.1 L Chloride 97 L Carbon Dioxide 22 Anion Gap 27.1 H BUN 16 Creatinine 1.4 H GFR Calculation 41.6 L Glucose 223 H POC Glucose Calculated Osmolality 304 H Lactic Acid Lactic Acid (Sepsis) Lactate 7.4 H* Calcium 10.8 H Magnesium 1.7 Total Bilirubin 0.7 AST 22 ALT 13 Alkaline Phosphatase 130 H Creatine Kinase Troponin T Baseline Troponin T 120 Minute Delta Troponin T Troponin T Hi Sens 6Hr Troponin T Hi Sens 6Hr Delta C-Reactive Protein 36.6 H NT-Pro-B Natriuret Pep 75207 H Total Protein 9.0 H Albumin 4.8 Globulin 4.2 Lipase 27 Procalcitonin TSH Random Cortisol Urine Color Urine Appearance Urine pH Ur Specific [place] Urine Protein Urine Glucose (UA) Urine Ketones Urine Blood Urine Nitrate Urine Bilirubin Urine Urobilinogen Ur Leukocyte Esterase Urine RBC Urine WBC Ur Squamous Epith Cells Amorphous Sediment Urine Bacteria Ethyl Alcohol < 10 Serum Ketones Blood Type Rho(D) Type Antibody Screen 10/20/20 10/20/20 10/20/20 05:45 05:45 05:45 WBC RBC Hgb Hct MCV MCH MCHC RDW Plt Count MPV Neut % (Auto) Lymph % (Auto) Pope % (Auto) Eos % (Auto) Baso % (Auto) Neut # (Auto) Lymph # (Auto) Pope # (Auto) Eos # (Auto) Baso # (Auto) Nucleated RBC % (auto) Nucleated RBCs # PT 14.40 INR 1.08 APTT 28.9 Specimen Type Sample Site ABG pH ABG pCO2 ABG pO2 ABG HCO3 ABG Base Excess [place] Test Hematocrit Hgb O2 Saturation Carboxyhemoglobin Methemoglobin Total Hemoglobin O2 Delivery Device Accountant Assistant ID Sodium Potassium Chloride Carbon Dioxide Anion Gap BUN Creatinine GFR Calculation Glucose POC Glucose Calculated Osmolality Lactic Acid Lactic Acid (Sepsis) Lactate Calcium Magnesium Total Bilirubin AST ALT Alkaline Phosphatase Creatine Kinase Troponin T Baseline Troponin T 120 Minute Delta Troponin T Troponin T Hi Sens 6Hr Troponin T Hi Sens 6Hr Delta C-Reactive Protein NT-Pro-B Natriuret Pep Total Protein Albumin Globulin Lipase Procalcitonin 0.27 TSH Random Cortisol Urine Color Urine Appearance Urine pH Ur Specific [place] Urine Protein Urine Glucose (UA) Urine Ketones Urine Blood Urine Nitrate Urine Bilirubin Urine Urobilinogen Ur Leukocyte Esterase Urine RBC Urine WBC Ur Squamous Epith Cells Amorphous Sediment Urine Bacteria Ethyl Alcohol Serum Ketones Negative Blood Type Rho(D) Type Antibody Screen 10/20/20 10/20/20 10/20/20 05:45 05:55 06:44 WBC RBC Hgb Hct MCV MCH MCHC RDW Plt Count MPV Neut % (Auto) Lymph % (Auto) Pope % (Auto) Eos % (Auto) Baso % (Auto) Neut # (Auto) Lymph # (Auto) Pope # (Auto) Eos # (Auto) Baso # (Auto) Nucleated RBC % (auto) Nucleated RBCs # PT INR APTT Specimen Type Arterial Sample Site Brachial, left ABG pH 7.47 H ABG pCO2 33.2 L ABG pO2 89.0 ABG HCO3 23.9 ABG Base Excess 0.9 Stanford Test N/a Hematocrit 48.0 H Hgb O2 Saturation 95.8 Carboxyhemoglobin 0.0 L Methemoglobin 0.9 Total Hemoglobin 15.7 O2 Delivery Device Room air Accountant Assistant ID Harkr Sodium Potassium Chloride Carbon Dioxide Anion Gap BUN Creatinine GFR Calculation Glucose POC Glucose Calculated Osmolality Lactic Acid Lactic Acid (Sepsis) Lactate Calcium Magnesium 1.6 L Total Bilirubin AST ALT Alkaline Phosphatase Creatine Kinase Troponin T Baseline Troponin T 120 Minute Delta Troponin T Troponin T Hi Sens 6Hr Troponin T Hi Sens 6Hr Delta C-Reactive Protein NT-Pro-B Natriuret Pep Total Protein Albumin Globulin Lipase Procalcitonin TSH 0.50 Random Cortisol Urine Color Urine Appearance Urine pH Ur Specific [place] Urine Protein Urine Glucose (UA) Urine Ketones Urine Blood Urine Nitrate Urine Bilirubin Urine Urobilinogen Ur Leukocyte Esterase Urine RBC Urine WBC Ur Squamous Epith Cells Amorphous Sediment Urine Bacteria Ethyl Alcohol Serum Ketones Blood Type A Positive Rho(D) Type Positive Antibody Screen Negative 10/20/20 10/20/20 10/20/20 07:37 08:37 08:37 WBC RBC Hgb Hct MCV MCH MCHC RDW Plt Count MPV Neut % (Auto) Lymph % (Auto) Pope % (Auto) Eos % (Auto) Baso % (Auto) Neut # (Auto) Lymph # (Auto) Pope # (Auto) Eos # (Auto) Baso # (Auto) Nucleated RBC % (auto) Nucleated RBCs # PT INR APTT Specimen Type Sample Site ABG pH ABG pCO2 ABG pO2 ABG HCO3 ABG Base Excess [place] Test Hematocrit Hgb O2 Saturation Carboxyhemoglobin Methemoglobin Total Hemoglobin O2 Delivery Device Accountant Assistant ID Sodium Potassium Chloride Carbon Dioxide Anion Gap BUN Creatinine GFR Calculation Glucose POC Glucose Calculated Osmolality Lactic Acid 2.5 H Lactic Acid (Sepsis) Lactate Calcium Magnesium Total Bilirubin AST ALT Alkaline Phosphatase Creatine Kinase Troponin T Baseline 37 H Troponin T 120 Minute Delta Troponin T Troponin T Hi Sens 6Hr Troponin T Hi Sens 6Hr Delta C-Reactive Protein NT-Pro-B Natriuret Pep Total Protein Albumin Globulin Lipase Procalcitonin TSH Random Cortisol Urine Color Yellow Urine Appearance Clear Urine pH 5 Ur Specific [place] 1.020 Urine Protein 3+ H Urine Glucose (UA) 2+ Urine Ketones 1+ H Urine Blood 2+ H Urine Nitrate Negative Urine Bilirubin Neg Urine Urobilinogen Norm Ur Leukocyte Esterase Negative Urine RBC 0-4 H Urine WBC 0-4 H Ur Squamous Epith Cells 0-4 H Amorphous Sediment 3+ Urine Bacteria 1+ H Ethyl Alcohol Serum Ketones Blood Type Rho(D) Type Antibody Screen 10/20/20 10/20/20 10/20/20 08:37 12:37 12:37 WBC RBC Hgb Hct MCV MCH MCHC RDW Plt Count MPV Neut % (Auto) Lymph % (Auto) Pope % (Auto) Eos % (Auto) Baso % (Auto) Neut # (Auto) Lymph # (Auto) Pope # (Auto) Eos # (Auto) Baso # (Auto) Nucleated RBC % (auto) Nucleated RBCs # PT INR APTT Specimen Type Sample Site ABG pH ABG pCO2 ABG pO2 ABG HCO3 ABG Base Excess [place] Test Hematocrit Hgb O2 Saturation Carboxyhemoglobin Methemoglobin Total Hemoglobin O2 Delivery Device Accountant Assistant ID Sodium Potassium Chloride Carbon Dioxide Anion Gap BUN Creatinine GFR Calculation Glucose POC Glucose Calculated Osmolality Lactic Acid Lactic Acid (Sepsis) 2.1 Lactate Calcium Magnesium Total Bilirubin AST ALT Alkaline Phosphatase Creatine Kinase 753 H* Troponin T Baseline Troponin T 120 Minute 32.87 H Delta Troponin T -4.13 L Troponin T Hi Sens 6Hr Troponin T Hi Sens 6Hr Delta C-Reactive Protein NT-Pro-B Natriuret Pep Total Protein Albumin Globulin Lipase Procalcitonin TSH Random Cortisol Urine Color Urine Appearance Urine pH Ur Specific [place] Urine Protein Urine Glucose (UA) Urine Ketones Urine Blood Urine Nitrate Urine Bilirubin Urine Urobilinogen Ur Leukocyte Esterase Urine RBC Urine WBC Ur Squamous Epith Cells Amorphous Sediment Urine Bacteria Ethyl Alcohol Serum Ketones Blood Type Rho(D) Type Antibody Screen 10/20/20 10/20/20 10/20/20 12:37 14:26 19:11 WBC RBC Hgb Hct MCV MCH MCHC RDW Plt Count MPV Neut % (Auto) Lymph % (Auto) Pope % (Auto) Eos % (Auto) Baso % (Auto) Neut # (Auto) Lymph # (Auto) Pope # (Auto) Eos # (Auto) Baso # (Auto) Nucleated RBC % (auto) Nucleated RBCs # PT INR APTT Specimen Type Sample Site ABG pH ABG pCO2 ABG pO2 ABG HCO3 ABG Base Excess [place] Test Hematocrit Hgb O2 Saturation Carboxyhemoglobin Methemoglobin Total Hemoglobin O2 Delivery Device Accountant Assistant ID Sodium Potassium Chloride Carbon Dioxide Anion Gap BUN Creatinine GFR Calculation Glucose POC Glucose 140 H Calculated Osmolality Lactic Acid Lactic Acid (Sepsis) Lactate Calcium Magnesium Total Bilirubin AST ALT Alkaline Phosphatase Creatine Kinase Troponin T Baseline Troponin T 120 Minute Delta Troponin T Troponin T Hi Sens 6Hr 30.26 H Troponin T Hi Sens 6Hr Delta -6.74 L C-Reactive Protein NT-Pro-B Natriuret Pep Total Protein Albumin Globulin Lipase Procalcitonin TSH Random Cortisol 48.13 H Urine Color Urine Appearance Urine pH Ur Specific [place] Urine Protein Urine Glucose (UA) Urine Ketones Urine Blood Urine Nitrate Urine Bilirubin Urine Urobilinogen Ur Leukocyte Esterase Urine RBC Urine WBC Ur Squamous Epith Cells Amorphous Sediment Urine Bacteria Ethyl Alcohol Serum Ketones Blood Type Rho(D) Type Antibody Screen 10/20/20 10/21/20 10/21/20 20:57 03:50 03:50 WBC 19.0 H RBC 4.80 Hgb 14.6 Hct 48.2 H MCV 100.4 H D MCH 30.4 MCHC 30.3 D RDW 14.5 Plt Count 247 MPV 11.9 H Neut % (Auto) 78.8 Lymph % (Auto) 13.7 Pope % (Auto) 6.4 Eos % (Auto) 0.1 Baso % (Auto) 0.4 Neut # (Auto) 14.95 H Lymph # (Auto) 2.6 Pope # (Auto) 1.2 H Eos # (Auto) 0.0 Baso # (Auto) 0.1 Nucleated RBC % (auto) 0 Nucleated RBCs # 0.0 PT INR APTT Specimen Type Sample Site ABG pH ABG pCO2 ABG pO2 ABG HCO3 ABG Base Excess [place] Test Hematocrit Hgb O2 Saturation Carboxyhemoglobin Methemoglobin Total Hemoglobin O2 Delivery Device Accountant Assistant ID Sodium Potassium Chloride Carbon Dioxide Anion Gap BUN Creatinine GFR Calculation Glucose POC Glucose 118 H Calculated Osmolality Lactic Acid Lactic Acid (Sepsis) Lactate Calcium Magnesium 1.9 Total Bilirubin AST ALT Alkaline Phosphatase Creatine Kinase Troponin T Baseline Troponin T 120 Minute Delta Troponin T Troponin T Hi Sens 6Hr Troponin T Hi Sens 6Hr Delta C-Reactive Protein NT-Pro-B Natriuret Pep Total Protein Albumin Globulin Lipase Procalcitonin TSH Random Cortisol Urine Color Urine Appearance Urine pH Ur Specific [place] Urine Protein Urine Glucose (UA) Urine Ketones Urine Blood Urine Nitrate Urine Bilirubin Urine Urobilinogen Ur Leukocyte Esterase Urine RBC Urine WBC Ur Squamous Epith Cells Amorphous Sediment Urine Bacteria Ethyl Alcohol Serum Ketones Blood Type Rho(D) Type Antibody Screen 10/21/20 10/21/20 03:50 08:01 WBC RBC Hgb Hct MCV MCH MCHC RDW Plt Count MPV Neut % (Auto) Lymph % (Auto) Pope % (Auto) Eos % (Auto) Baso % (Auto) Neut # (Auto) Lymph # (Auto) Pope # (Auto) Eos # (Auto) Baso # (Auto) Nucleated RBC % (auto) Nucleated RBCs # PT INR APTT Specimen Type Sample Site ABG pH ABG pCO2 ABG pO2 ABG HCO3 ABG Base Excess [place] Test Hematocrit Hgb O2 Saturation Carboxyhemoglobin Methemoglobin Total Hemoglobin O2 Delivery Device Accountant Assistant ID Sodium 138 Potassium 3.5 Chloride 103 Carbon Dioxide 18 L Anion Gap 20.5 H BUN 9 Creatinine 0.5 GFR Calculation 136.6 H Glucose 131 H POC Glucose 108 Calculated Osmolality 286 Lactic Acid Lactic Acid (Sepsis) Lactate Calcium 9.3 Magnesium Total Bilirubin 0.6 AST 28 ALT 12 Alkaline Phosphatase 77 Creatine Kinase Troponin T Baseline Troponin T 120 Minute Delta Troponin T Troponin T Hi Sens 6Hr Troponin T Hi Sens 6Hr Delta C-Reactive Protein NT-Pro-B Natriuret Pep Total Protein 6.7 D Albumin 3.5 Globulin 3.2 Lipase Procalcitonin TSH Random Cortisol Urine Color Urine Appearance Urine pH Ur Specific [place] Urine Protein Urine Glucose (UA) Urine Ketones Urine Blood Urine Nitrate Urine Bilirubin Urine Urobilinogen Ur Leukocyte Esterase Urine RBC Urine WBC Ur Squamous Epith Cells Amorphous Sediment Urine Bacteria Ethyl Alcohol Serum Ketones Blood Type Rho(D) Type Antibody Screen Micro: Microbiology 10/20/20 07:37 Urine Culture - Preliminary Urine Catheterized 10/20/20 07:13 Blood Culture - Preliminary Blood NEGATIVE TO DATE 10/20/20 06:45 Blood Culture - Preliminary Blood NEGATIVE TO DATE Cardiac Studies: No Data to Display
[2020-10-21] MEDS: vancomycin 1,000 MG in sodium chloride 0.9% 250 ML 250 MG IV (11:44)
[2020-10-21 12:10] LABS: Glucose Point of Care 133 mg/dL (70-110)
--- NOTE | 2020-10-21 13:35 | PC.NURSE ---
Pt is awake but she wants her to sign the consent Explained to about the procedure and he understood it by talking to Dr. Sequeira yesterday.
[2020-10-21] MEDS: BRIVARACETAM 25 MG 25 EACH PO (15:46)
--- NOTE | 2020-10-21 16:51 | PC.NURSE ---
Hand off report to med surg report given to med surg.
[2020-10-21 18:19] LABS: Glucose Point of Care 107 mg/dL (70-110)
[2020-10-21 18:51] LABS: Glucose Point of Care 103 mg/dL (70-110)
[2020-10-21 20:28] LABS: Glucose Point of Care 100 mg/dL (70-110)
[2020-10-21] MEDS: vancomycin 1,250 MG/250 ML PIGGYBACK 200 MG IV (22:43)
[2020-10-22] VITALS (12 sets, daily range): BP systolic 93–172; BP diastolic 52–100; PULSE 76–116; RESP 16–18; TEMP 36.3–37.1; O2SAT 93–97
[2020-10-22] MEDS: HYDROmorphone 1 mg/mL INJ 1 mL IVP ×3 (00:46→09:03)
[2020-10-22] MEDS: ondansetron 2 mg/ML SDV 2 mL 4 MG IVP ×3 (00:46→21:43)
[2020-10-22] MEDS: piperacillin-tazobactam 3.375 GM in sodium chloride 0.9% (plus) 50 ML IV ×2 (02:25→11:50)
[2020-10-22] MEDS: sodium chloride 0.9% 1,000 ML 100 ML IV ×2 (02:25→19:45)
[2020-10-22] MEDS: metoclopramide 5 mg/mL SDV 2 mL 10 MG IVP (05:06)
[2020-10-22] MEDS: nitroglycerin 1 gm/inch oint Pkt 1 INCH TOPICAL (05:38)
[2020-10-22 05:40] LABS: Hematocrit 41.8 % (37.0-47.0); Hemoglobin 13.4 g/dL (11.5-15.3); Mean Corpuscular HGB Conc 32.1 g/dL (30.0-36.0); Mean Corpuscular Hemoglobin 29.8 pg (28.0-34.0); Mean Corpuscular Volume 93.1 fL (81-99); Mean Platelet Volume 11.6 fL (7.4-10.4); Platelet Count 284 10^3/cmm (130-400); Red Blood Count 4.49 10^6/uL (4.1-5.3); Red Cell Distribution Width 14.2 % (12.1-15.1); White Blood Count 16.6 10^3/uL (4.0-10.0)
[2020-10-22 06:00] LABS: Anion Gap 13.4 (5-19); Blood Urea Nitrogen 5 mg/dL (6-20); Calcium 9.1 mg/dL (8.5-10.5); Carbon Dioxide 25 mmol/L (22-29); Chloride 104 mmol/L (98-107); Glomerular Filtration Rate 136.6 mL/min (90-130); Glucose 106 mg/dL (65-115); Osmolality Calculated 286 mOsm/kg (285-295); Potassium 3.4 mmol/L (3.5-5.1); Sodium 139 mmol/L (136-145)
[2020-10-22 06:01] LABS: Magnesium 1.9 mg/dL (1.7-2.3)
[2020-10-22 06:27] LABS: Slide Review Slide Review Perform
[2020-10-22 06:28] LABS: Absolute Segmented Neutrophil 10.6 10/cmm (1.6-7.1); Eosinophils 0 %; Lymphocytes 18 %; Monocytes Absolute 0.5 10^3/cmm (0.1-0.6); Segmented Neutrophils 64 %; Total Cells Counted 100 (0-100)
[2020-10-22 06:29] LABS: Absolute Neutrophil 10.6 10^3/cmm (1.4-6.5); Platelet Estimate Normal (Normal)
[2020-10-22 07:14] LABS: Glucose Point of Care 119 mg/dL (70-110)
--- NOTE | 2020-10-22 07:47 | PC.NURSE ---
Nurse notified of high pulse rate of 116. Nurse notified of high blood pressure of 159/100.
[2020-10-22] MEDS: acetaminophen 325 mg Tablet 650 MG PO (07:54)
[2020-10-22 07:56] LABS: H. Pylori / CLO Test Negative
--- NOTE | 2020-10-22 08:20 | PC.NURSE ---
Dilaudid Administration at 0506 on 10/22/20: After shift change the pt requested pain medication and the day shift nurse saw that according to the emar the pt had not received pain medication since 0040 that evening. She tried to pull Dilaudid from the pyxis and the pyxis showed that Dilaudid was pulled at 0456 by the pt care nurse JIGAR Cristina but did not show that it was given. AMPARO Roman scanned and administered Reglan to the pt at 0506 and when asked she stated that she gave Dilaudid at the same time as the Reglan.
[2020-10-22] MEDS: BRIVARACETAM 25 MG 25 EACH PO (08:23)
[2020-10-22] MEDS: polyethylene glycol 3350 Pkt 17 gm PO (08:23)
[2020-10-22] MEDS: pantoprazole DR 40 mg Tablet PO ×2 (08:24→17:57)
[2020-10-22] MEDS: sennosides-docusate Tablet 2 TAB PO (08:24)
[2020-10-22] MEDS: amlodipine 5 mg Tablet PO ×2 (08:24→17:58)
[2020-10-22] MEDS: potassium chloride ER 20 mEq Tablet 40 MEQ PO (08:24)
[2020-10-22] MEDS: LORazepam 2 mg/mL INJ 1 mL 1 MG IVP (09:03)
[2020-10-22] MEDS: metoprolol tartrate 50 mg Tablet PO ×2 (09:04→21:43)
[2020-10-22] MEDS: morphine ER (12 HR) 30 mg tablet PO ×2 (10:11→21:44)
[2020-10-22] MEDS: vancomycin 1,250 MG/250 ML PIGGYBACK 200 MG IV (10:11)
--- NOTE | 2020-10-22 10:49 | P.PN_ITS ---
Subjective Subjective: Interval history: Eleanor reports she feels better. Able to tolerate fluids by mouth. Some nausea. No severe vomiting. She has had bowel movements. Abdominal pain is somewhat better. Medications: Reviewed: Yes Vitals/I&O/Wt Last Vital Signs Temp 98.3 F 10/22/20 07:43 Pulse 116 H 10/22/20 07:43 Resp 18 10/22/20 09:03 BP 159/100 10/22/20 07:43 Pulse Ox 95 10/22/20 07:43 10/21/20 10/22/20 10/22/20 22:59 06:59 14:59 Intake Total 1100 / 1350 1040 / 2390 360 / 360 Output Total 600 / 1250 900 / 900 Balance 500 / 100 1040 / 1140 -540 / -540 Weight last 48 hrs Weight 79.605 kg Weight 70.76 kg Weight 70.76 kg Physical Exam Narrative: EXAM NARRATIVE: General exam no apparent distress Heart rate improved Neck is supple no lymphadenopathy or thyromegaly Cardiovascular tachycardic. No murmur. Lungs clear no wheezing or crackles Abdomen is soft. Bowel sounds are noted. Tenderness is present in the left upper quadrant. demonstrates Preston Extremities no cyanosis clubbing or edema, cap refill less than 2 seconds Urinary Catheter Management^: Preston: Cath Placed During This Visit: no Reason for Continuing Indwelling Catheter: Accurate Measurement of Urinary Output in Critically Ill Patients Data : 10/22/20 05:20 10/22/20 05:20 Micro: Microbiology 10/20/20 07:37 Urine Culture - Final Urine Catheterized 10/22/20 05:21 Blood Culture - Preliminary Blood SPECIMEN COLLECTED 10/22/20 05:27 Blood Culture - Preliminary Blood SPECIMEN COLLECTED 10/20/20 06:45 Blood Culture - Preliminary Blood 10/20/20 07:13 Blood Culture - Preliminary Blood NEGATIVE TO DATE A&P Assessment and plan (1) Recurrent vomiting: Zofran for nausea Reglan for breakthrough nausea Advance diet to full liquid Appreciate consultation for EGD. This demonstrated hemorrhagic gastritis with no active bleeding. Protonix has been switched to p.o. H. pylori is negative Status: Acute (2) Constipation: She has now had several bowel movements Continue MiraLAX and senna lax Status: Inactive (3) Acute kidney injury: Resolved with hydration Status: Acute (4) Hypokalemia: Recurrent. Supplement again. Status: Acute (5) Sepsis: Concern of sepsis secondary to tachycardia, leukocytosis, potential focus secondary to 2-week weeks ago dental surgery. Now with abdominal pain and constipation which could contribute to translocation of bacteria. Does not meet criteria for aggressive fluid resuscitation secondary to her significantly elevated BNP. Continue hydration White blood cell count decreasing Blood culture 1/4 cultures positive gram-positive cocci. Awaiting further delineation. Currently on vancomycin and Zosyn. Status: Acute (6) Urinary retention: Continue Preston placed in the emergency department. Constipation and pain medication may have contributed to urinary retention Discontinue Preston today and monitor output Status: Acute (7) Hypercalcemia: Calcium normalized this morning, as suspected after hydration Status: Acute (8) Adrenal mass: Plasma metanephrines, aldosterone, renin, cortisol random Outpatient follow-up Status: Acute (9) GI bleed: Hemoglobin stable Continue Protonix p.o. Status: Acute (10) Hypertensive urgency: Hydralazine as needed Continue metoprolol which was initiated yesterday, and increased dose to 50 mg twice daily Norvasc 5 mg twice daily Discontinue nitroglycerin ointment TSH was checked, and normal Echocardiogram demonstrated preserved EF, no change from previous. There is been concerned of some outflow tract obstruction on previous echocardiogram and she could benefit from outpatient follow-up with cardiology for her hypertension as well. Status: Acute Additional A&P Information History of seizure disorders. Continue home medication. She will need to bring this in from home as this is not available on formulary here. Seizure pr ecautions. Diabetes mellitus, sliding scale insulin Chronic pain, which the patient reports is in her legs as well as her abdomen. She reports she has history of pancreatitis contributing and believes her pain currently in her abdomen may be secondary to this as well. Restart her long- acting morphine, hydrocodone for breakthrough pain Multiple other medical problems as outlined in her past medical history. Full code SCDs for DVT prophylaxis secondary to concern of bleeding If remains clinically stable, consider transfer out of the ICU this afternoon or tomorrow morning. Attestations Medical Necessity Statement*: Needs continued hospitalization, to advance diet, adjust medicine for hypertension, continue IV antibiotics pending culture results. Coding Level of Care Code Acute Tank Systems Maintainer for Chg Fwd Diagnoses Recurrent vomiting R11.10 Constipation K59.00 Acute kidney injury N17.9 Hypokalemia E87.6 Sepsis A41.9 Urinary retention R33.9 Hypercalcemia E83.52 Adrenal mass E27.8 GI bleed K92.2 Hypertensive urgency I16.0
[2020-10-22] MEDS: tizanidine 4 mg Tablet 8 MG PO ×2 (11:50→21:46)
[2020-10-22 13:27] LABS: Glucose Point of Care 119 mg/dL (70-110)
[2020-10-22 13:27] LABS: Glucose Point of Care 111 mg/dL (70-110)
[2020-10-22 17:52] LABS: Glucose Point of Care 104 mg/dL (70-110)
[2020-10-22] MEDS: HYDROcodone-acetaminophen 5-325 mg Tablet 1 TAB PO (17:58)
[2020-10-22] MEDS: LORazepam 0.5 mg Tablet PO (18:03)
[2020-10-22] MEDS: zolpidem 5 mg Tablet PO (21:46)
--- NOTE | 2020-10-22 21:49 | PC.NURSE ---
This nurse witnessed day shift Nurse Galina RN administer Zosyn IV to patient at 10/22/201999, this med was not scaned in the patients MAR. This nurse re-timed the 2100 Zosyn dose for 10/23/20 at 0400 to meet the Q8H frequency ordered.
--- NOTE | 2020-10-22 22:02 | PC.NURSE ---
Accucheck's not crossing over. Patient capillary blood glucose level 105.
[2020-10-23] VITALS (11 sets, daily range): BP systolic 98–177; BP diastolic 59–92; PULSE 69–95; RESP 16–18; TEMP 36.3–37.3; O2SAT 72–98
[2020-10-23] MEDS: vancomycin 1,250 MG/250 ML PIGGYBACK 200 MG IV (00:03)
--- NOTE | 2020-10-23 03:19 | PC.NURSE ---
Patient complained of bleeding from her rectum, stated that she had been bleeding all day and had reported it but stated that no one had addressed the bleeding and she wanted to know what was wrong with her. Nurse and SPACE PLANNER noted small amount of blood on bed linens and assisted the patient to the bedside commode, patient voided and had a large liquid bowel movement in the bedside commode. small amount of blood noted in commode. Patient was assisted into clean gown and bed linens changed. Patient assisted back into the bed and provided a maxi pad. The nurse asked patient if she could be menstruating, the patient replied, No, I have already had my period. This blood is from my stomach and no one will believe me. This nurse asked the patient if she had hemorrhoids, the patient stated no . This nurse asked the patient if she could examine the patient's kev area to assess the source of the bleeding. The patient gave verbal consent and said yes, that's fine. This nurse brought in ANITA Estes as witness. The patient removed her panties and small amount of blood noted on maxi pad, no blood noted to be coming from rectum, small amount of blood noted to be coming from vagina. This nurse told the patient the blood was not coming from her rectum and she the patient said Thank you, at least I know for sure now.
[2020-10-23] MEDS: piperacillin-tazobactam 3.375 GM in sodium chloride 0.9% (plus) 50 ML IV ×3 (03:41→22:12)
[2020-10-23] MEDS: HYDROcodone-acetaminophen 5-325 mg Tablet 1 TAB PO ×4 (03:41→17:45)
[2020-10-23] MEDS: LORazepam 0.5 mg Tablet PO ×3 (03:42→22:15)
[2020-10-23 06:04] LABS: Basophils # 0.1 10^3/uL (0.0-0.1); Basophils % 0.9 %; Eosinophils # 0.1 10^3/uL (0.0-0.8); Eosinophils % 1.5 %; Hematocrit 36.1 % (37.0-47.0); Hemoglobin 11.2 g/dL (11.5-15.3); Lymphocytes # 3.4 10^3/uL (0.8-4.8); Lymphocytes % 42.2 %; Mean Corpuscular Hemoglobin 29.9 pg (28.0-34.0); Mean Corpuscular Volume 96.5 fL (81-99); Mean Platelet Volume 11.3 fL (7.4-10.4); Monocytes # 0.7 10^3/uL (0.2-0.9); Monocytes % 8.4 %; Neutrophils # 3.77 10^3/uL (1.8-7.7); Neutrophils % 46.6 %; Nucleated Red Blood Cells % 0 %; Platelet Count 195 10^3/cmm (130-400); Red Blood Count 3.74 10^6/uL (4.1-5.3); White Blood Count 8.1 10^3/uL (4.0-10.0)
[2020-10-23 06:29] LABS: Anion Gap 11.4 (5-19); Blood Urea Nitrogen 5 mg/dL (6-20); Calcium 8.5 mg/dL (8.5-10.5); Carbon Dioxide 23 mmol/L (22-29); Chloride 110 mmol/L (98-107); Glomerular Filtration Rate 136.6 mL/min (90-130); Glucose 107 mg/dL (65-115); Osmolality Calculated 290 mOsm/kg (285-295); Potassium 3.4 mmol/L (3.5-5.1); Sodium 141 mmol/L (136-145)
[2020-10-23 06:40] LABS: Glucose Point of Care 103 mg/dL (70-110)
[2020-10-23] MEDS: sodium chloride 0.9% 1,000 ML 100 ML IV ×2 (07:15→17:44)
[2020-10-23] MEDS: potassium chloride ER 20 mEq Tablet 40 MEQ PO (08:01)
[2020-10-23] MEDS: metoprolol tartrate 50 mg Tablet PO (08:02)
[2020-10-23] MEDS: amlodipine 5 mg Tablet PO (08:02)
[2020-10-23] MEDS: tizanidine 4 mg Tablet 8 MG PO ×2 (08:03→16:52)
[2020-10-23] MEDS: pantoprazole DR 40 mg Tablet PO ×2 (08:03→17:45)
[2020-10-23] MEDS: BRIVARACETAM 25 MG 25 EACH PO (08:12)
[2020-10-23] MEDS: sennosides-docusate Tablet 2 TAB PO (08:13)
[2020-10-23] MEDS: ondansetron 2 mg/ML SDV 2 mL 4 MG IVP ×2 (08:13→14:08)
[2020-10-23 10:12] LABS: Vancomycin Trough 19.6 ug/mL (10-15)
--- NOTE | 2020-10-23 10:22 | PC.SOCIAL ---
*IMM Update* Gave pt IMM and left her copy of page 2. Signed, dated, timed and placed in chart.
[2020-10-23 11:31] LABS: Glucose Point of Care 161 mg/dL (70-110)
[2020-10-23] MEDS: duloxetine 30 mg Capsule PO (11:50)
[2020-10-23] MEDS: morphine ER (12 HR) 30 mg tablet PO ×2 (11:51→22:15)
[2020-10-23] MEDS: lipase-protease-amylase Capsule 2 EACH PO ×2 (11:57→17:48)
--- NOTE | 2020-10-23 12:15 | PM.PN ---
Subjective Subjective: Interval history: Eleanor reports her belly is hurting more this morning. She reports she has some nausea, and has vomited. She states it is a small amount. I visited with her regarding her disease course of abdominal pain that has been going on for many months. I also discussed her current illness with her . Medications: Reviewed: Yes Vitals/I&O/Wt Last Vital Signs Temp 99.1 F 10/23/20 08:00 Pulse 95 10/23/20 08:00 Resp 16 10/23/20 11:51 BP 177/92 10/23/20 08:00 Pulse Ox 96 10/23/20 08:00 10/22/20 10/23/20 10/23/20 22:59 06:59 14:59 Intake Total 50 / 1970 1000 / 2970 Output Total 600 / 1500 Balance 50 / 1070 400 / 1470 Weight last 48 hrs Weight 82.69 kg Weight 79.605 kg Physical Exam Narrative: EXAM NARRATIVE: General exam no apparent distress Neck is supple no lymphadenopathy or thyromegaly Cardiovascular regular rate and rhythm without murmur Lungs clear no wheezing or crackles Abdomen is soft. Bowel sounds are noted. Tenderness is present in the left upper quadrant. Extremities no cyanosis clubbing or edema, cap refill less than 2 seconds Urinary Catheter Management^: Preston: Cath Placed During This Visit: no Reason for Continuing Indwelling Catheter: Accurate Measurement of Urinary Output in Critically Ill Patients Data : 10/23/20 05:44 10/23/20 05:44 Micro: Microbiology 10/22/20 05:21 Blood Culture - Preliminary Blood NEGATIVE TO DATE 10/22/20 05:27 Blood Culture - Preliminary Blood NEGATIVE TO DATE 10/20/20 06:45 Blood Culture - Preliminary Blood Micrococcus and related genera 10/20/20 07:37 Urine Culture - Final Urine Catheterized A&P Assessment and plan (1) Recurrent vomiting: Zofran for nausea Reglan for breakthrough nausea Advance to a soft mechanical diet. Discussed regulating this if recurrent vomiting occurs. Small frequent portions are best if there is any element of gastroparesis. Appreciate consultation for EGD. This demonstrated hemorrhagic gastritis with no active bleeding. Protonix has been switched to p.o. H. pylori is negative Reduce fluids and encourage p.o. Hopefully she can stay hydrated with these changes. Status: Acute (2) Constipation: She has now had several bowel movements Continue MiraLAX and senna lax Status: Inactive (3) Acute kidney injury: Resolved with hydration Status: Acute (4) Hypokalemia: Supplement Status: Acute (5) Sepsis: Concern of sepsis secondary to tachycardia, leukocytosis, potential focus secondary to 2-week weeks ago dental surgery. Now with abdominal pain and constipation which could contribute to translocation of bacteria. White blood cell count is now normal Blood culture 1/4 cultures positive gram-positive cocci. Micrococcus isolated. Repeat blood cultures negative. Vancomycin discontinued today. Continue Zosyn Status: Acute (6) Urinary retention: Continue Preston placed in the emergency department. Constipation and pain medication may have contributed to urinary retention Preston was removed October 22 and output appears adequate Status: Acute (7) Hypercalcemia: Calcium normalized this morning, as suspected after hydration Status: Acute (8) Adrenal mass: Plasma metanephrines, aldosterone, renin, cortisol random Outpatient follow-up Status: Acute (9) GI bleed: Hemoglobin stable Continue Protonix p.o. Status: Acute (10) Hypertensive urgency: Hydralazine as needed Continue metoprolol and Norvasc TSH was checked, and normal Echocardiogram demonstrated preserved EF, no change from previous. There is been concerned of some outflow tract obstruction on previous echocardiogram and she could benefit from outpatient follow-up with cardiology for her hypertension as well. Status: Acute Additional A&P Information Significant depression. Visited with her as well as her today. Complicated by chronic pain. Add Cymbalta 30 mg daily. History of seizure disorders. Continue home medication. She will need to bring this in from home as this is not available on formulary here. Seizure precautions. Diabetes mellitus, sliding scale insulin Chronic pain, which the patient reports is in her legs as well as her abdomen. She reports she has history of pancreatitis contributing and believes her pain currently in her abdomen may be secondary to this as well. Restart her long-acting morphine, hydrocodone for breakthrough pain. Added pancreatic enzyme supplementation Multiple other medical problems as outlined in her past medical history. Full code SCDs for DVT prophylaxis secondary to concern of bleeding Attestations Medical Necessity Statement*: Needs continued hospital stay secondary to recurrent nausea. Coding Level of Care Code Acute Online [employer] F[employer] Coach for g Fwd Diagnoses Recurrent vomiting R11.10 Constipation K59.00 Acute kidney injury N17.9 Hypokalemia E87.6 Sepsis A41.9 Urinary retention R33.9 Hypercalcemia E83.52 Adrenal mass E27.8 GI bleed K92.2 Hypertensive urgency I16.0
[2020-10-23 17:05] LABS: Glucose Point of Care 111 mg/dL (70-110)
[2020-10-23 21:22] LABS: Glucose Point of Care 105 mg/dL (70-110)
[2020-10-23] MEDS: zolpidem 5 mg Tablet PO (22:14)
[2020-10-24] VITALS: BP 135/81; PULSE 86; RESP 18; TEMP 36.6; O2SAT 98
[2020-10-24] MEDS: HYDROcodone-acetaminophen 5-325 mg Tablet 1 TAB PO ×3 (01:13→11:59)
[2020-10-24] MEDS: tizanidine 4 mg Tablet 8 MG PO ×2 (01:14→08:59)
[2020-10-24 04:00] VITALS: BP 121/78; PULSE 78; RESP 18; TEMP 36.5; O2SAT 98
[2020-10-24 05:32] LABS: Basophils # 0.1 10^3/uL (0.0-0.1); Basophils % 0.7 %; Eosinophils # 0.2 10^3/uL (0.0-0.8); Eosinophils % 2.4 %; Hematocrit 32.9 % (37.0-47.0); Hemoglobin 10.6 g/dL (11.5-15.3); Lymphocytes # 4.2 10^3/uL (0.8-4.8); Lymphocytes % 50.8 %; Mean Corpuscular HGB Conc 32.2 g/dL (30.0-36.0); Mean Corpuscular Hemoglobin 30.5 pg (28.0-34.0); Mean Corpuscular Volume 94.5 fL (81-99); Mean Platelet Volume 11.5 fL (7.4-10.4); Monocytes # 0.6 10^3/uL (0.2-0.9); Monocytes % 6.9 %; Neutrophils # 3.22 10^3/uL (1.8-7.7); Neutrophils % 38.8 %; Nucleated Red Blood Cells % 0 %; Platelet Count 190 10^3/cmm (130-400); Red Blood Count 3.48 10^6/uL (4.1-5.3); Red Cell Distribution Width 13.9 % (12.1-15.1); White Blood Count 8.3 10^3/uL (4.0-10.0)
[2020-10-24] MEDS: piperacillin-tazobactam 3.375 GM in sodium chloride 0.9% (plus) 50 ML IV (05:41)
[2020-10-24] MEDS: sodium chloride 0.9% 1,000 ML 100 ML IV (05:43)
[2020-10-24 05:56] LABS: Alanine Aminotransferase 7 U/L (0-33); Alkaline Phosphatase 62 IU/L (35-105); Anion Gap 10.6 (5-19); Aspartate Amino Transferase 12 U/L (0-32); Blood Urea Nitrogen 3 mg/dL (6-20); Calcium 8.4 mg/dL (8.5-10.5); Carbon Dioxide 25 mmol/L (22-29); Chloride 109 mmol/L (98-107); Globulin 2.1 g/dL (1.3-4.6); Glomerular Filtration Rate 136.6 mL/min (90-130); Glucose 123 mg/dL (65-115); Osmolality Calculated 290 mOsm/kg (285-295); Potassium 3.6 mmol/L (3.5-5.1); Sodium 141 mmol/L (136-145); Total Bilirubin 0.3 mg/dL (0.15-1.2); Total Protein 5.1 g/dL (6.6-8.7)
[2020-10-24 06:41] LABS: Glucose Point of Care 105 mg/dL (70-110)
[2020-10-24 08:00] VITALS: BP 187/81; PULSE 90; RESP 17; TEMP 36.8; O2SAT 97
[2020-10-24] MEDS: potassium chloride ER 20 mEq Tablet 40 MEQ PO (08:48)
[2020-10-24 08:50] VITALS: RESP 17
[2020-10-24] MEDS: duloxetine 30 mg Capsule PO (08:50)
[2020-10-24] MEDS: lipase-protease-amylase Capsule 2 EACH PO ×2 (08:50→11:59)
[2020-10-24] MEDS: morphine ER (12 HR) 30 mg tablet PO (08:50)
[2020-10-24] MEDS: metoprolol tartrate 50 mg Tablet PO (08:50)
[2020-10-24] MEDS: amlodipine 5 mg Tablet PO (08:52)
[2020-10-24] MEDS: sennosides-docusate Tablet 2 TAB PO (08:52)
[2020-10-24] MEDS: pantoprazole DR 40 mg Tablet PO (08:52)
[2020-10-24] MEDS: ondansetron 2 mg/ML SDV 2 mL 4 MG IVP (08:58)
[2020-10-24] MEDS: hyDRALAzine 20 mg/mL INJ 1 mL 10 MG IVP (08:58)
[2020-10-24] MEDS: LORazepam 0.5 mg Tablet PO (08:59)
--- NOTE | 2020-10-24 09:09 | PC.NURSE ---
Dr. Sequeira at bedside, new orders received to saline lock and discontinue IV fluids, see MAR for further details, encouraged patient to get out of bed today and move around, patient verbalizes understanding and reports she will take a shower today.
[2020-10-24 11:25] LABS: Glucose Point of Care 123 mg/dL (70-110)
[2020-10-24 12:00] VITALS: BP 99/60; PULSE 68; RESP 18; TEMP 36.6; O2SAT 96
--- NOTE | 2020-10-24 13:31 | PC.NURSE ---
Dr. Sequeira notified this nurse patient will be discharged with meds to beds.
--- NOTE | 2020-10-24 13:38 | PM.DCS ---
Discharge Providers Date of Admission: 10/20/20 10:39 Date of Discharge: October 24, 2020 Attending Provider at Admission: Richard Sequeira MD Attending Provider at Discharge: Richard Sequeira MD Primary Care Provider: Yony Otero MD Diagnoses at Discharge Discharge Diagnosis (1) Recurrent vomiting: Status: Acute (2) Constipation: Status: Inactive (3) Acute kidney injury: Status: Acute (4) Hypokalemia: Status: Acute (5) Sepsis: Status: Acute (6) Urinary retention: Status: Acute (7) Hypercalcemia: Status: Acute (8) Adrenal mass: Status: Acute (9) GI bleed: Status: Acute (10) Hypertensive urgency: Status: Acute Reason for Visit Reason for Visit: n/v, bloody vomit Hospital Course Hospital Course Eleanor is a 40-year-old white female who presented to the hospital with history of coffee-ground emesis, severe abdominal pain in her left upper quadrant. She had a past history of pancreatitis. Lipase was normal. CT abdomen and pelvis demonstrated an enlarged bladder, significant amount of stool. No inflammation of the pancreas was noted. White blood cell count was markedly elevated. Urinalysis did not show any obvious infection. Chest x-ray did not show pneumonia. CTA was concerning for some pulmonary edema but no evidence of pulmonary embolism. Left adrenal mass was noted on both studies. Echocardiogram was performed demonstrating preserved EF, no significant valvular abnormalities, and no significant change from a prior echocardiogram September 2017. She was admitted initially to the ICU. Hydration was given as she appeared clinically dehydrated. Blood pressure was aggressively treated with as needed hydralazine, addition of metoprolol, topical nitrates. Broad-spectrum antibiotics were given for concern of sepsis including Zosyn and vancomycin. Pain was controlled with IV Dilaudid. EGD was completed by Dr. Otero demonstrating hemorrhagic gastritis, no active bleeding, and ultimately was H. pylori negative. Over the course of her hospitalization she gradually improved. With medical treatment her heart rate came down and her blood pressure became better controlled. Blood cultures ultimately grew 1 out of 4 organisms with this was micrococcus thought to be contaminant. She improved to a point her p.o. medication was able to be started and IV Dilaudid stopped for her chronic pain. White blood cell count came down and returned to normal. She had symptoms of significant depression which I believe is contributing to her pain. I have visited extensively about this with her and we ultimately decided after talking about risks and benefits to initiate Cymbalta 30 mg daily, with possible further dose adjustment in the future. Secondary to her history of chronic pancreatitis and chronic pain with eating pancreatic enzyme was added, although the utility of this is not known. I discussed in detail her findings of adrenal mass, and she has some studies still pending such as catecholamines, renin, aldosterone. Her primary care provider will follow up on this. At discharge she was able to drink and eat small amounts, had vast improvements of her discomfort, was afebrile, had a normal heart rate of 70 and a systolic blood pressure of 100. Physical Exam Narrative: EXAM NARRATIVE: General exam no apparent distress Cardiovascular regular rate and rhythm without murmur Lungs clear Abdomen is soft. Positive bowel sounds. Some tenderness still present left upper quadrant. Extremities no cyanosis clubbing or edema Urinary Catheter Management^: Preston: Cath Placed During This Visit: no Reason for Continuing Indwelling Catheter: Accurate Measurement of Urinary Output in Critically Ill Patients Discharge Data Data Completed and Pending: Completed Studies During Hospitalization Category Date Time Status CT abdomen pelvis w con* [id number] Urge nt Cat Scan 10/20/20 05:[address] angio chest PE protcl [id number] Stat Cat Scan 10/20/20 07:20 Completed XR chest 1V neptali ble [id number] Urgent Exams 10/20/20 05:45 Completed CV echo complete* [id number] Stat Ultrasound 10/20/20 08:35 Completed Pending at discharge Category Date Time Status Blood Culture AM LABS Lab 10/22/20 05:21 Results Blood Culture Sta t Lab 10/20/20 07:13 Results Plasma Renin Acti vity LC/MS/MS Rout ine Lab 10/20/20 12:37 Received Labs from last 24 hours 10/24/20 10/24/20 10/24/20 11:12 06:33 05:16 WBC RBC Hgb Hct MCV MCH MCHC RDW Plt Count MPV Neut % (Auto) Lymph % (Auto) Rowan % (Auto) Eos % (Auto) Baso % (Auto) Neut # (Auto) Lymph # (Auto) Rowan # (Auto) Eos # (Auto) Baso # (Auto) Nucleated RBC % (a uto) Nucleated RBCs # Sodium 141 Potassium 3.6 Chloride 109 H Carbon Dioxide 25 Anion Gap 10.6 BUN 3 L Creatinine 0.5 GFR Calculation 136.6 H Glucose 123 H POC Glucose 123 H 105 Calculated Osmolal ity 290 Calcium 8.4 L Total Bilirubin 0.3 AST 12 ALT 7 Alkaline Phosphata se 62 Total Protein 5.1 L Albumin 3.0 L Globulin 2.1 Aldosterone Misc Test Referenc e 10/24/20 10/23/20 10/23/20 05:16 21:05 16:45 WBC 8.3 RBC 3.48 L Hgb 10.6 L Hct 32.9 L MCV 94.5 MCH 30.5 MCHC 32.2 RDW 13.9 Plt Count 190 MPV 11.5 H Neut % (Auto) 38.8 Lymph % (Auto) 50.8 Rowan % (Auto) 6.9 Eos % (Auto) 2.4 Baso % (Auto) 0.7 Neut # (Auto) 3.22 Lymph # (Auto) 4.2 Rowan # (Auto) 0.6 Eos # (Auto) 0.2 Baso # (Auto) 0.1 Nucleated RBC % (a uto) 0 Nucleated RBCs # 0.0 Sodium Potassium Chloride Carbon Dioxide Anion Gap BUN Creatinine GFR Calculation Glucose POC Glucose 105 111 H Calculated Osmolal ity Calcium Total Bilirubin AST ALT Alkaline Phosphata se Total Protein Albumin Globulin Aldosterone Misc Test Referenc e 10/20/20 10/20/20 12:37 12:37 WBC RBC Hgb Hct MCV MCH MCHC RDW Plt Count MPV Neut % (Auto) Lymph % (Auto) Rowan % (Auto) Eos % (Auto) Baso % (Auto) Neut # (Auto) Lymph # (Auto) Rowan # (Auto) Eos # (Auto) Baso # (Auto) Nucleated RBC % (a uto) Nucleated RBCs # Sodium Potassium Chloride Carbon Dioxide Anion Gap BUN Creatinine GFR Calculation Glucose POC Glucose Calculated Osmolal ity Calcium Total Bilirubin AST ALT Alkaline Phosphata se Total Protein Albumin Globulin Aldosterone 2 Misc Test Referenc e See comment Vitals: Last Vital Signs Temp 97.8 F 10/24/20 12:00 Pulse 68 10/24/20 12:00 Resp 18 10/24/20 12:00 BP 99/60 10/24/20 12:00 Pulse Ox 96 10/24/20 12:00 Discharge Plan Discharge Patient Disposition: Home Condition: Stable Prescriptions: New sennosides-docusate sodium 8.6-50 mg Tablet 2 tab PO BID Qty: 120 RF: 0 metoprolol tartrate 50 mg Tablet 50 mg PO BID@0900,2100 Qty: 60 RF: 0 duloxetine 30 mg Capsule,Delayed Release(Dr/Ec) 30 mg PO DAILY Qty: 30 RF: 0 Zenpep 5,000-17,000- 24,000 unit Capsule,Delayed Release(Dr/Ec) 2 ea PO TIDWM Qty: 180 RF: 0 ciprofloxacin HCl [Cipro] 500 mg tablet 500 mg PO BID Qty: 6 RF: 0 metronidazole [Flagyl] 500 mg tablet 500 mg PO TID Qty: 9 RF: 0 Continued morphine 30 mg tablet extended release 30 mg PO Q12H 30 Days Qty: 60 RF: 0 tizanidine 4 mg tablet 8 mg PO TID PRN (Reason: muscle spasticity) 30 Days Qty: 180 RF: 3 ondansetron HCl 4 mg tablet 4 mg PO Q8H PRN (Reason: nausea and vomiting) Qty: 20 RF: 0 zolpidem 5 mg tablet 5 mg PO BEDTIME PRN (Reason: Sleep) RF: 0 pantoprazole 40 mg tablet,delayed release (DR/EC) 40 mg PO BID@08,20 RF: 0 Briviact 25 mg tablet 25 mg PO DAILY@08 RF: 0 hydrocodone-acetaminophen 5-325 mg tablet 1 tab PO Q4H PRN (Reason: Pain) RF: 0 lorazepam 0.5 mg tablet 0.5 mg PO BID PRN (Reason: Seizures) RF: 0 Discontinued furosemide 20 mg tablet 40 mg PO BID Qty: 120 RF: 3 potassium chloride 10 mEq capsule, extended release 10 meq PO DAILY RF: 0 hydrochlorothiazide 12.5 mg tablet 12.5 mg PO DAILY RF: 0 hydromorphone [Dilaudid] 2 mg tablet 2 mg PO Q4H PRN (Reason: pain) Qty: 7 RF: 0 Discharge Orders: Discharge Order (Routine); Ordered 10/24/20 Ordered By: Richard Sequeira Referrals: Yony Oetro MD [Primary Care Provider] - 4-7 days (Call on Tuesday to make an appointment to be seen within 4 to 7 days.) Discharge Diet: Cardiac Discharge Activity: Increase activity as tolerated Patient Instructions: Ciprofloxacin (By mouth), Metoprolol (By mouth), Laxative, Stimulant (By mouth), Metronidazole (By mouth), Pancrelipase (By mouth), Duloxetine (By mouth), GI Discharge Instructions Activity Restrictions/Additional Instructions: Soft mechanical diet. Follow-up with your primary care provider regarding your abnormality on your adrenal. Take all medicine as prescribed. Do not take any anti-inflammatories. Discharge Attestations Time Spent in Discharge Care*: greater than 30 min Status at Discharge: Cognitive status at discharge: cognitively intact, Behavioral status at discharge: cooperative, Quality Metrics Clinical Quality Measures During this hospital stay, did patient experience: None Coding Level of Care Code Acute Information Security Systems Instructor for Chg Fwd Diagnoses Recurrent vomiting R11.10 Constipation K59.00 Acute kidney injury N17.9 Hypokalemia E87.6 Sepsis A41.9 Urinary retention R33.9 Hypercalcemia E83.52 Adrenal mass E27.8 GI bleed K92.2 Hypertensive urgency I16.0
--- NOTE | 2020-10-24 13:55 | PC.NURSE ---
discharge instructions reviewed, denies further questions or concerns, awaiting meds to beds for discharge. spouse at bedside
[2020-10-24 13:56] VITALS: BP 99/60; PULSE 68; RESP 18; TEMP 36.6; O2SAT 96
[2020-10-24 14:14] LABS: Plasma Renin Activity LC/MS/MS 1.67 ng/mL/h (0.25-5.82)
== END 2020-10-24 15:15 | disposition home or self-care (01) | DRG 871 ==
LOC: ER 10:59 → ER IP 10-21 06:30 → ICU 10-21 06:30 → MEDSURG 10-21 17:23
PROVIDERS: Emergency Medicine; Admitting Provider Internal Medicine; Emergency Provider Family Medicine; PCP Internal Medicine; Visit Provider Internal Medicine
PROC: 0DJ08ZZ Inspection of Upper Intestinal Tract, Via Natural or Artificial Opening Endoscopic (ICD-10-PCS; CPT 43235; principal; 2020-10-21 12:30)
DX: A41.9 Sepsis, unspecified organism (principal); K29.01 Acute gastritis with bleeding; K86.1 Other chronic pancreatitis; N17.9 Acute kidney failure, unspecified; K59.00 Constipation, unspecified; I50.9 Heart failure, unspecified; I11.0 Hypertensive heart disease with heart failure; G89.29 Other chronic pain; M79.605 Pain in left leg; M79.604 Pain in right leg; Q65.89 Other specified congenital deformities of hip; Q66.01 Congenital talipes equinovarus, right foot; E11.9 Type 2 diabetes mellitus without complications; G40.909 Epilepsy, unspecified, not intractable, without status epilepticus; M19.90 Unspecified osteoarthritis, unspecified site; Z96.653 Presence of artificial knee joint, bilateral; E87.6 Hypokalemia; R33.9 Retention of urine, unspecified; E83.52 Hypercalcemia; E86.0 Dehydration; E27.9 Disorder of adrenal gland, unspecified; Z79.891 Long term (current) use of opiate analgesic; F32.9 Major depressive disorder, single episode, unspecified; I16.0 Hypertensive urgency; Z86.16 Personal history of COVID-19
CPT/HCPCS: 12345; 36415; 36416; 36600; 43239; 51702; 71045; 71275; 74177; 80048; 80053; 80202; 80307; 81001; 82009; 82088; 82533; 82550; 82805; 82962; 83605; 83690; 83735; 83835; 83880; 84145; 84244; 84443; 84484; 85007; 85025; 85610; 85730; 86140; 86850; 86900; 87040; 87077; 87086; 87205; 93005; 93306; 96372; 99281; 99284; C9113; J0360; J1170; J1815; J1956; J2060; J2405; J2543; J2704; J2765; J3370; J3480; J3490; J7030; J7050; Q9967

== ENCOUNTER → 2021-04-23 12:52 | Outpatient (BNVA) | payer MEDICARE, MEDICAID, SELFPAY | PROVIDERS: PCP Internal Medicine; Visit Provider Emergency Medicine | DX: Z20.822 Contact with and (suspected) exposure to COVID-19 (principal) | CPT/HCPCS: 87426 ==

== ENCOUNTER 2021-05-28 14:46 | Outpatient (CLI) | payer MEDICARE, MEDICAID, SELFPAY | END 2021-05-28 14:47 | disposition home or self-care (01) | LOC: LAB 14:59 | PROVIDERS: PCP Internal Medicine; Visit Provider Internal Medicine | DX: E11.9 Type 2 diabetes mellitus without complications (principal) | CPT/HCPCS: 80053; 83036; 84443 ==

== ENCOUNTER → 2021-10-20 15:59 | Outpatient (BNVA) | payer MEDICARE, MEDICAID, SELFPAY | PROVIDERS: PCP Internal Medicine; Visit Provider Nurse Practitioner Family | DX: Z20.822 Contact with and (suspected) exposure to COVID-19 (principal) | CPT/HCPCS: 87635 ==

== ENCOUNTER → 2021-10-23 14:00 | Outpatient (BNVA) | payer MEDICARE, MEDICAID, SELFPAY | PROVIDERS: PCP Internal Medicine; Visit Provider Nurse Practitioner Family | DX: Z20.822 Contact with and (suspected) exposure to COVID-19 (principal) | CPT/HCPCS: 87635 ==

== ENCOUNTER 2021-10-25 17:10 | Inpatient (IN) | payer MEDICARE, MEDICAID, SELFPAY ==
[2021-10-25 17:31] VITALS: BP 194/87; PULSE 79; RESP 18; TEMP 37.1; O2SAT 95; BMI 29.2
--- NOTE | 2021-10-25 19:57 | XRR_ITS ---
PROCEDURE INFORMATION: Exam: XR Chest Exam date and time: 10/25/2021 7:57 PM Age: 41 years old Clinical indication: Dyspnea TECHNIQUE: Imaging protocol: XR of the chest. Views: 1 view. COMPARISON: CR XR chest 1V portable [id number] 10/20/2020 5:56 AM FINDINGS: Lungs: Unremarkable. No consolidation. Pleural spaces: Unremarkable. No pleural effusion. No pneumothorax. Heart/Mediastinum: Unremarkable. No cardiomegaly. Bones/joints: Unremarkable. XR/XR chest 1V portable [id number] IMPRESSION: No acute findings.
[2021-10-25 20:08] VITALS: O2SAT 96
[2021-10-25 20:15] VITALS: BP 151/119; PULSE 77; RESP 18; O2SAT 97
[2021-10-25] MEDS: lidocaine 2% viscous 15 ML, aluminum-mag hydrox-simethicon 30 ML, sucralfate oral liq 1 GM PO (20:51)
[2021-10-25] MEDS: sodium chloride 0.9% 1,000 ML 999 ML IV (20:52)
--- NOTE | 2021-10-25 21:12 | W.ED.GENADLT ---
Documented by User: Paramjit Duong MD 10/25/21 22:52 HPI - General Adult General: Chief complaint: COVID symptoms Stated complaint: sob, cough,n/v, Time Seen by Provider: 10/25/21 19:26 History of Present Illness: HPI narrative: CC: Shortness of breath, fever and generalized weakness HPI: This is a [41] yo patient w/ hx of CHF presenting to the ED with malaise, generalized weakness, cough sputum production, and fever at home x 8days. Patient's mother recently from [place]. Since onset of symptoms, has had some shortness of breath and decreased PO intake. NO recent travel. Denies chest pain, N/V, diaphoresis, exertional shortness of breath, other complaints. +Nausea/vomiting and diarrhea x 8 days with decreased PO intake. Denies any pleuritic chest pain, recent surgery/immobilization/travel, or hematemesis or hx of VTE in the past. Patient reports moderate frontal headache since onset of symptoms. Denies any neurological complaints including facial droop, diplopia, slurred speech, focal weakness in the arms or legs, visual field deficit/blindness, vertigo symptoms, or inability to ambulate. Onset: 8days ago Duration: ongoing for the last 8 days Location: home Severity: mild/moderate Associated symptoms: Reports dyspnea, headache(s), malaise, nausea and vomiting; Deny chest pain, rash or palpitations Review of Systems Const: Reports: fever(s), chills, body aches, change in appetite, fatigue, malaise and other (generalized ewakness) Eyes: Denies: change in vision ENMT: Denies: mouth pain Card: Denies: chest pain or palpitations Resp: Reports: dyspnea and non-productive cough GI: Reports: abdominal pain (diffuse abd pain), nausea, vomiting and diarrhea : Denies: dysuria Musc: Denies: extremity pain Skin/Breast: Denies: rash or new lesions Neuro: Reports: headache(s); Denies: weakness in extremities Psych: Reports: other (Normal mood) Benjy/Lymph: Denies: easy bruising PFS ED PFSH: Medical History CHF (congestive heart failure) Chronic pain of lower extremity, bilateral Chronic pancreatitis 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 Constipation Constipation Diabetes Epilepsy Essential (primary) hypertension GI bleed Hypertensive urgency Primary osteoarthritis Recurrent vomiting Surgical History History of bilateral knee replacement History of cholecystectomy History of D&C 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 Family History Grandmother Cancer Lung disease Stroke Mother Lung disease Other A-fib CHF (congestive heart failure) Social History Smoking and tobacco status: never smoked Alcohol intake: never Household members: spouse Housing: House Marital status: Current occupational status: disabled History of recent travel: No Physical Exam Const: COMMON NORMALS: alert HENMT: COMMON NORMALS: atraumatic HEAD & SCALP: atraumatic MOUTH: moist mucous membranes not abnormal Eye: COMMON NORMALS: EOMs intact bilaterally and conjunctivae normal CONJUNCTIVA: Yes conjunctivae normal Neck/C-Spine: COMMON NORMALS: full ROM and supple Resp: COMMON NORMALS: normal respiratory effort and clear to auscultation bilaterally AUSCULTATION: clear to auscultation bilaterally Cardio: COMMON NORMALS: regular rate RATE: regular rate GI: COMMON NORMALS: Soft to palpation and non-tender PALPATION: Yes Soft to palpation OTHER: No focal TTP. NO guarding rebound, guarding, rigidity. No CVA tenderness to percussion. Neg [place]/Neg McBurney's point tenderness, no suprabupic tenderness to palpation. Extremity: COMMON NORMALS: full ROM Neuro: SENSORIUM/ORIENTATION: Yes alert MOTOR EXAM: No Abnormal motor strength present and Other motor observations present (no focal motor deficits) OTHER: Mental status? Awake, alert, and oriented to self, year, month, location, and situation.? Following simple axial and appendicular commands.? Has appropriate fund of knowledge, comprehension, and insight.? Able to recall and understands pertinent aspects of medical history and current treatment status.? ? Language? Speech is fluent without word-finding difficulties.? Intact naming, expression, legal secretary receptionist, and repetition.? ? Cranial nerves? 2,3,4,6: PERRL, EOMI with no nystagmus. 5: Intact sensation to light touch, symmetric? 7: Smile symmetrical, no facial droop.? 8: Hearing grossly intact.? 9,10: Normal palate movement.? 11: Normal strength in trapezius bilaterally 12: Tongue protrudes midline.? ? Motor examination? Normal bulk & tone. Strength as follows (R/L): Delts (5/5), Biceps (5/5), Triceps (5/5), Wrist ext (5/5), hip flexors (5/5), plantarflexors (5/5), dorsiflexors (5/5). ? Sensation? Light Touch: Grossly intact and equal in upper and lower extremities bilaterally? Romberg: Negative.? Distal joint position sense intact ? Coordination? Bhojed-[id number]-finger movements intact without dysmetria or past-pointing.? Rapid fingertaps: preserved amplitude without decriment.? No tremor, myoclonus or truncal ataxia.? ? Gait/stance? Steady, normal narrow base gait with appropriate arm swing and turning.? Tandem gait without hesitation or loss of balance. Psych: COMMON NORMALS: speech normal SPEECH: Yes normal speech MOOD & AFFECT: Yes euthymic mood Course Vital Signs: Vital signs: Vital Signs Temperature 98.3 F 10/27/21 19:15 Pulse Rate 74 10/27/21 22:00 Respiratory Rate 15 10/27/21 22:00 Blood Pressure 138/68 10/27/21 22:00 Pulse Oximetry 94 10/27/21 22:00 MDM - General Adult MDM Narrative Medical decision making narrative: [41]yo patient w/ hx of CHF presenting to the ED with shortness of breath, cough, and malaise concerning for COVID. Given History, Exam, and Workup presentation most consistent with pneumonia.Presentation not consistent with PE, COPD exacerbation, Pneumothorax, TB, Atypical ACS, Esophageal Rupture, Toxic Exposure, Foreign Body Airway Obstruction. Workup: XR Chest Intervention: Tylenol 1gram, GI cocktal, IVF, reglan, PO challenge, serial reassessment [41] On reassessment, XR without any focal consolidations. Findings consistent with viral pneumonia, suspected COVID. Clinically, fever improved with tylenol. Patient is no longer in respiratory distress, tolerating PO, and able to ambulate. The patient continues to be hemodynamically stable while observed in the ED, in no acute respiratory distress. O2 sats > 95% while observed in the ER. No significant comorbidities today which indicate that the patient is a candidate for outpatient care. Plan discussed with the patient who agrees with outpatient evaluation. Neurologically intact. CT head negative for any acute findings. Do not supsect SAH since this is not worst headache of life and sudden in onset, no nuchal rigidity and is not worse headache of life. No suspicion at this time for venous sinus thrombosis or meningitis given reassuring workup and exam. Case signed out to Dr. Alejo pending blood work and reassessment Lab Data Result diagrams: 10/27/21 04:35 10/27/21 04:35 Labs: Lab Results 10/25/21 10/25/21 10/26/21 21:53 21:53 02:08 WBC 13.5 10^3/uL H 10^3/uL (4.0-10.0) RBC 5.89 10^6/uL H 10^6/uL (4.1-5.3) Hgb 17.2 g/dL H g/dL (11.5-15.3) Hct 50.7 % H % (37.0-47.0) MCV 86.1 fl fl (81-99) MCH 29.2 pg pg (28.0-34.0) MCHC 33.9 g/dL g/dL (30.0-36.0) RDW 13.0 % % (12.1-15.1) Plt Count 176 10^3/cmm 10^3/cmm (130-400) MPV 13.4 fL H fL (7.4-10.4) Neut % (Auto) 56.7 % % Lymph % (Auto) 33.9 % % Crowley % (Auto) 6.3 % % Eos % (Auto) 0.5 % % Baso % (Auto) 0.7 % % Neut # (Auto) 7.61 10^3/uL 10^3/uL (1.8-7.7) Lymph # (Auto) 4.6 10^3/uL 10^3/uL (0.8-4.8) Crowley # (Auto) 0.9 10^3/uL 10^3/uL (0.2-0.9) Eos # (Auto) 0.1 10^3/uL 10^3/uL (0.0-0.8) Baso # (Auto) 0.1 10^3/uL 10^3/uL (0.0-0.1) Nucleated RBC % (auto) 0 % % Nucleated RBCs # 0.0 /100WBC /100WBC Sodium 140 mmol/L mmol/L (136-145) Potassium 4.8 mmol/L mmol/L (3.5-5.1) Chloride 102 mmol/L mmol/L (98-107) Carbon Dioxide 15 mmol/L L mmol/L (22-29) Anion Gap 27.8 H (5-19) BUN 10 mg/dL mg/dL (6-20) Creatinine 0.5 mg/dL mg/dL (0.5-0.9) GFR Calculation 136.0 mL/min H mL/min (90-130) Glucose 68 mg/dL mg/dL (65-115) POC Glucose Calculated Osmolality 287 mOsm/kg mOsm/kg (285-295) Calcium 9.9 mg/dL mg/dL (8.5-10.5) Total Bilirubin 0.8 mg/dL mg/dL (0.15-1.2) AST 47 U/L H U/L (0-32) ALT 33 U/L U/L (0-33) Alkaline Phosphatase 117 IU/L H IU/L (35-105) Creatine Kinase Troponin T Baseline Total Protein 7.3 g/dL g/dL (6.6-8.7) Albumin 4.4 g/dL g/dL (3.5-5.2) Globulin 2.9 g/dL g/dL (1.3-4.6) Lipase 46 U/L U/L (13-60) Urine Color Yellow (Yellow) Urine Appearance Clear (CLEAR) Urine pH 5 (5-7) Ur Specific [place] 1.020 (1.005-1.030) Urine Protein Neg (Negative) Urine Glucose (UA) Norm (Normal) Urine Ketones 2+ H (Negative) Urine Blood Neg (Negative) Urine Nitrate Negative (Negative) Urine Bilirubin Neg (Negative) Urine Urobilinogen 1 mg/dL H mg/dL (Negative) Ur Leukocyte Esterase Negative (Negative) 10/26/21 10/26/21 10/26/21 04:33 05:00 05:00 WBC RBC Hgb Hct MCV MCH MCHC RDW Plt Count MPV Neut % (Auto) Lymph % (Auto) Crowley % (Auto) Eos % (Auto) Baso % (Auto) Neut # (Auto) Lymph # (Auto) Crowley # (Auto) Eos # (Auto) Baso # (Auto) Nucleated RBC % (auto) Nucleated RBCs # Sodium Potassium Chloride Carbon Dioxide Anion Gap BUN Creatinine GFR Calculation Glucose POC Glucose 91 mg/dL mg/dL (70-110) Calculated Osmolality Calcium Total Bilirubin AST ALT Alkaline Phosphatase Creatine Kinase 46 U/L U/L (26-192) Troponin T Baseline 9 ng/L ng/L (0-10) Total Protein Albumin Globulin Lipase Urine Color Urine Appearance Urine pH Ur Specific [place] Urine Protein Urine Glucose (UA) Urine Ketones Urine Blood Urine Nitrate Urine Bilirubin Urine Urobilinogen Ur Leukocyte Esterase Imaging Data^ Other Imaging: Radiologist's impression: [employer] [id number] [place] [address] [id number] ReportSigned Patient: Eleanor Ragland #: [id number]: 1980Acct#:[id number]/Sex: 41 / FADM Date: 10/25/21Loc: ERRoom/Bed:Attending Dr: Ordering Provider/Ordering MD: Paramjit Duong MD Date of Service: 10/25/21 Procedure(s): XR chest 1V portable [id number] Accession Number(s): [id number] Report Number: [id number] PROCEDURE INFORMATION: Exam: XR Chest Exam date and time: 10/25/2021 7:57 PM Age: 41 years old Clinical indication: Dyspnea TECHNIQUE: Imaging protocol: XR of the chest. Views: 1 view. COMPARISON: CR XR chest 1V portable [id number] 10/20/2020 5:56 AM FINDINGS: Lungs: Unremarkable. No consolidation. Pleural spaces: Unremarkable. No pleural effusion. No pneumothorax. Heart/Mediastinum: Unremarkable. No cardiomegaly. Bones/joints: Unremarkable. XR/XR chest 1V portable [id number] IMPRESSION: No acute findings. Dictated By:Isabel Vanessa MDSigned By:Isabel Vanessa MDSigned Date/Time:10/25/212057DD/ 56 [facility]Fn[facility] [place], [place] [address]DC Scan ReportSigned Patient: Eleanor Ragland #: [id number]: [id number]#:[id number]/Sex: 41 / FADM Date: 10/25/21Loc: ERRoom/Bed:Attending Dr: Ordering Provider/Ordering MD: Paramjit Duong MD Date of Service: 10/25/21 Procedure(s): CT head wo con* [id number] Accession Number(s): [id number] Report Number: [id number] PROCEDURE INFORMATION: Exam: CT Head Without Contrast Exam date and time: 10/25/2021 9:16 PM Age: 41 years old Clinical indication: Pain; Headache not specified; Patient HX: C/O FLOREZ; Additional info: Eval for pathologies TECHNIQUE: Imaging protocol: Computed tomography of the head without contrast. Radiation optimization: All CT scans at this facility use at least one of these dose optimization techniques: automated exposure control; mA and/or kV adjustment per patient size (includes targeted exams where dose is matched to clinical indication); or iterative reconstruction. COMPARISON: MRI Head w/wo* [id number] 11/28/2018 9:45 AM RADIATION DOSE METRICS: Total DLP (mGy-cm): 715.86 FINDINGS: Brain: Normal. No hemorrhage. Unremarkable white matter. No mass effect. Cerebral ventricles: No ventriculomegaly. Paranasal sinuses: Visualized sinuses are unremarkable. No fluid levels. Mastoid air cells: Visualized mastoid air cells are well aerated. Bones/joints: Unremarkable. No acute fracture. Soft tissues: Unremarkable. CT/CT head wo con* [id number] IMPRESSION: No acute intracranial abnormality. Dictated By:Isabel Vanessa MDSigned By:Isabel Vanessa MDSigned Date/Time:10/25/212149DD/ 15 Discharge Plan Discharge Patient Disposition: Admitted As Inpatient Admit Provider: Chemo Oviedo Clinical Impression: Hypertensive urgency Condition: Serious Coding Level of Care Code ED Wafer Fabrication Technician for Chg Fwd Exam Comprehensive Documented by User: Vishnu Chris DO Melo 10/27/21 23:06 HPI - General Adult General: Chief complaint: COVID symptoms Stated complaint: sob, cough,n/v, Time Seen by Provider: 10/25/21 19:26 Source: patient History of Present Illness: HPI narrative: 41 year old female originally seen by Dr. Duong. This lady had COVID-19 back in September. She states that she has not felt well since. She has a history of seizure disorder as well as pancreatitis. Currently, for the past week or so, she has experienced cough, nausea, vomiting, and fatigue. She states That she has not been able to take her medication for the past couple of days due to the nausea and vomiting. She Has had some belly pain, mainly to the right upper quadrant. she has a history of cholecystectomy. She denies chest pain. She has had a significant headache. Location: head and abdomen Radiation: back Severity: moderate Pain Consistency: constant Relieving factors: none Exacerbating factors: movement Associated symptoms: Reports cough, decreased appetite, headache(s), nausea, vomiting and weakness; Deny chest pain, short of breath or syncope Review of Systems Const: Reports: chills; Denies: fever(s) or body aches Card: Denies: chest pain or syncope Resp: Reports: non-productive cough GI: Reports: nausea and vomiting Neuro: Reports: headache(s) [facility] ED PFSH: Medical History CHF (congestive heart failure) Chronic pain of lower extremity, bilateral Chronic pancreatitis 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 Constipation Constipation Diabetes Epilepsy Essential (primary) hypertension GI bleed Hypertensive urgency Primary osteoarthritis Recurrent vomiting Surgical History History of bilateral knee replacement History of cholecystectomy History of D&C 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 Family History Grandmother Cancer Lung disease Stroke Mother Lung disease Other A-fib CHF (congestive heart failure) Social History Smoking and tobacco status: never smoked Alcohol intake: never Household members: spouse Housing: House Marital status: Current occupational status: disabled History of recent travel: No Physical Exam Const: GENERAL APPEARANCE: cooperative and ill appearing NUTRITIONAL APPEARANCE: overweight ORIENTATION/CONSCIOUSNESS: Yes awake, Yes oriented to person, Yes oriented to place and Yes oriented to time HENMT: COMMON NORMALS: normocephalic and atraumatic HEAD & SCALP: normocephalic and atraumatic FACE & SINUS: normal facial exam Eye: COMMON NORMALS: Equal, round and reactive pupils present and EOMs intact bilaterally PUPIL: Yes Equal, round and reactive pupils present Chest: COMMONS NORMALS: normal inspection of the chest Resp: COMMON NORMALS: normal respiratory effort, No retractions and No use of accessory muscles Cardio: COMMON NORMALS: regular rate and regular rhythm RATE: regular rate RHYTHM: regular rhythm GI: INSPECTION: Yes normal to inspection Neuro: KELLY COMA SCALE: document GCS findings Kelly coma scale eye opening: Spontaneous [place] coma scale verbal response: Orientated [place] coma scale motor response: Obey commands [place] coma scale total score: 15 SENSORIUM/ORIENTATION: Yes oriented to person, Yes oriented to place and Yes oriented to time Psych: COMMON NORMALS: mental status grossly normal Course Vital Signs: Vital signs: Vital Signs Temperature 98.3 F 10/27/21 19:15 Pulse Rate 74 10/27/21 22:00 Respiratory Rate 15 10/27/21 22:00 Blood Pressure 138/68 10/27/21 22:00 Pulse Oximetry 94 10/27/21 22:00 MDM - General Adult MDM Narrative Medical decision making narrative: 41-year-old female with headache, vomiting, belly pain. Her white blood cell count is slightly elevated. Her bicarbonate level is low. She has not been able to take her blood pressure medication, and her blood pressure has been quite high. This will require IV blood pressure medication. Blood pressure remains high despite multiple doses of Iv blood pressure medication, as well as pain medication. With her symptoms including significant headache and vomiting, this constitute hypertensive urgency. She was placed on a nicardipine drip, but developed redness to the arms, and shortness of breath with symptoms of mild tongue swelling with this. She was given Iv Benadryl. This improved. As we could not use that drug, intravenous nitroglycerin was started for hypertensive crisis. Her troponin was negative. Her EKG did not show any acute St changes. Head CT was negative. CT of the belly was performed, as the patient had a temperature of 100.5, and had been vomiting. It is not remarkable. No evidence of pancreatitis. She will be admitted to the ICU for hypertensive urgency. Lab Data Attestation: I reviewed the patient's lab results. Result diagrams: 10/27/21 04:35 10/27/21 04:35 Labs: Lab Results 10/25/21 10/25/21 10/26/21 21:53 21:53 02:08 WBC 13.5 10^3/uL H 10^3/uL (4.0-10.0) RBC 5.89 10^6/uL H 10^6/uL (4.1-5.3) Hgb 17.2 g/dL H g/dL (11.5-15.3) Hct 50.7 % H % (37.0-47.0) MCV 86.1 fl fl (81-99) MCH 29.2 pg pg (28.0-34.0) MCHC 33.9 g/dL g/dL (30.0-36.0) RDW 13.0 % % (12.1-15.1) Plt Count 176 10^3/cmm 10^3/cmm (130-400) MPV 13.4 fL H fL (7.4-10.4) Neut % (Auto) 56.7 % % Lymph % (Auto) 33.9 % % Crowley % (Auto) 6.3 % % Eos % (Auto) 0.5 % % Baso % (Auto) 0.7 % % Neut # (Auto) 7.61 10^3/uL 10^3/uL (1.8-7.7) Lymph # (Auto) 4.6 10^3/uL 10^3/uL (0.8-4.8) Crowley # (Auto) 0.9 10^3/uL 10^3/uL (0.2-0.9) Eos # (Auto) 0.1 10^3/uL 10^3/uL (0.0-0.8) Baso # (Auto) 0.1 10^3/uL 10^3/uL (0.0-0.1) Nucleated RBC % (auto) 0 % % Nucleated RBCs # 0.0 /100WBC /100WBC Sodium 140 mmol/L mmol/L (136-145) Potassium 4.8 mmol/L mmol/L (3.5-5.1) Chloride 102 mmol/L mmol/L (98-107) Carbon Dioxide 15 mmol/L L mmol/L (22-29) Anion Gap 27.8 H (5-19) BUN 10 mg/dL mg/dL (6-20) Creatinine 0.5 mg/dL mg/dL (0.5-0.9) GFR Calculation 136.0 mL/min H mL/min (90-130) Glucose 68 mg/dL mg/dL (65-115) POC Glucose Calculated Osmolality 287 mOsm/kg mOsm/kg (285-295) Calcium 9.9 mg/dL mg/dL (8.5-10.5) Total Bilirubin 0.8 mg/dL mg/dL (0.15-1.2) AST 47 U/L H U/L (0-32) ALT 33 U/L U/L (0-33) Alkaline Phosphatase 117 IU/L H IU/L (35-105) Creatine Kinase Troponin T Baseline Total Protein 7.3 g/dL g/dL (6.6-8.7) Albumin 4.4 g/dL g/dL (3.5-5.2) Globulin 2.9 g/dL g/dL (1.3-4.6) Lipase 46 U/L U/L (13-60) Urine Color Yellow (Yellow) Urine Appearance Clear (CLEAR) Urine pH 5 (5-7) Ur Specific [place] 1.020 (1.005-1.030) Urine Protein Neg (Negative) Urine Glucose (UA) Norm (Normal) Urine Ketones 2+ H (Negative) Urine Blood Neg (Negative) Urine Nitrate Negative (Negative) Urine Bilirubin Neg (Negative) Urine Urobilinogen 1 mg/dL H mg/dL (Negative) Ur Leukocyte Esterase Negative (Negative) 10/26/21 10/26/21 10/26/21 04:33 05:00 05:00 WBC RBC Hgb Hct MCV MCH MCHC RDW Plt Count MPV Neut % (Auto) Lymph % (Auto) Crowley % (Auto) Eos % (Auto) Baso % (Auto) Neut # (Auto) Lymph # (Auto) Crowley # (Auto) Eos # (Auto) Baso # (Auto) Nucleated RBC % (auto) Nucleated RBCs # Sodium Potassium Chloride Carbon Dioxide Anion Gap BUN Creatinine GFR Calculation Glucose POC Glucose 91 mg/dL mg/dL (70-110) Calculated Osmolality Calcium Total Bilirubin AST ALT Alkaline Phosphatase Creatine Kinase 46 U/L U/L (26-192) Troponin T Baseline 9 ng/L ng/L (0-10) Total Protein Albumin Globulin Lipase Urine Color Urine Appearance Urine pH Ur Specific [place] Urine Protein Urine Glucose (UA) Urine Ketones Urine Blood Urine Nitrate Urine Bilirubin Urine Urobilinogen Ur Leukocyte Esterase Discharge Plan Discharge Patient Disposition: Admitted As Inpatient Admit Provider: Chemo [place] Clinical Impression: Hypertensive urgency Condition: Serious Coding Level of Care Code ED Wafer Fabrication Technician for Heather Fwd Exam Comprehensive
--- NOTE | 2021-10-25 21:16 | CTR_ITS ---
PROCEDURE INFORMATION: Exam: CT Head Without Contrast Exam date and time: 10/25/2021 9:16 PM Age: 41 years old Clinical indication: Pain; Headache not specified; Patient HX: C/O FLOREZ; Additional info: Eval for pathologies TECHNIQUE: Imaging protocol: Computed tomography of the head without contrast. Radiation optimization: All CT scans at this facility use at least one of these dose optimization techniques: automated exposure control; mA and/or kV adjustment per patient size (includes targeted exams where dose is matched to clinical indication); or iterative reconstruction. COMPARISON: MRI Head w/wo* [id number] 11/28/2018 9:45 AM RADIATION DOSE METRICS: Total DLP (mGy-cm): 715.86 FINDINGS: Brain: Normal. No hemorrhage. Unremarkable white matter. No mass effect. Cerebral ventricles: No ventriculomegaly. Paranasal sinuses: Visualized sinuses are unremarkable. No fluid levels. Mastoid air cells: Visualized mastoid air cells are well aerated. Bones/joints: Unremarkable. No acute fracture. Soft tissues: Unremarkable. CT/CT head wo con* [id number] IMPRESSION: No acute intracranial abnormality.
[2021-10-25 21:24] VITALS: RESP 18
[2021-10-25] MEDS: morphine 4 mg/mL SDV 1 mL 2 MG IVP (21:24)
[2021-10-25] MEDS: hyDRALAzine 20 mg/mL INJ 1 mL IVP (21:27)
[2021-10-25 21:28] VITALS: BP 200/90
[2021-10-25] MEDS: diphenhydrAMINE 50 mg/mL SDV 1mL (21:37)
[2021-10-25 22:41] LABS: Basophils # 0.1 10^3/uL (0.0-0.1); Basophils % 0.7 %; Eosinophils # 0.1 10^3/uL (0.0-0.8); Eosinophils % 0.5 %; Hematocrit 50.7 % (37.0-47.0); Hemoglobin 17.2 g/dL (11.5-15.3); Lymphocytes # 4.6 10^3/uL (0.8-4.8); Lymphocytes % 33.9 %; Mean Corpuscular HGB Conc 33.9 g/dL (30.0-36.0); Mean Corpuscular Hemoglobin 29.2 pg (28.0-34.0); Mean Corpuscular Volume 86.1 fl (81-99); Mean Platelet Volume 13.4 fL (7.4-10.4); Monocytes # 0.9 10^3/uL (0.2-0.9); Monocytes % 6.3 %; Neutrophils # 7.61 10^3/uL (1.8-7.7); Neutrophils % 56.7 %; Nucleated Red Blood Cells % 0 %; Platelet Count 176 10^3/cmm (130-400); Red Blood Count 5.89 10^6/uL (4.1-5.3); White Blood Count 13.5 10^3/uL (4.0-10.0)
[2021-10-25] MEDS: ondansetron 2 mg/ML SDV 2 mL 4 MG IVP (22:50)
[2021-10-25] MEDS: magnesium sulfate premix 2 GM/50 ML PIGGYBACK IV (22:53)
[2021-10-25 23:08] LABS: Alanine Aminotransferase 33 U/L (0-33); Albumin Level 4.4 g/dL (3.5-5.2); Alkaline Phosphatase 117 IU/L (35-105); Aspartate Amino Transferase 47 U/L (0-32); Blood Urea Nitrogen 10 mg/dL (6-20); Calcium 9.9 mg/dL (8.5-10.5); Carbon Dioxide 15 mmol/L (22-29); Chloride 102 mmol/L (98-107); Globulin 2.9 g/dL (1.3-4.6); Glucose 68 mg/dL (65-115); Lipase 46 U/L (13-60); Osmolality Calculated 287 mOsm/kg (285-295); Sodium 140 mmol/L (136-145); Total Bilirubin 0.8 mg/dL (0.15-1.2); Total Protein 7.3 g/dL (6.6-8.7)
[2021-10-25 23:15] LABS: Anion Gap 27.8 (5-19); Potassium 4.8 mmol/L (3.5-5.1)
[2021-10-26] VITALS (73 sets, daily range): BP systolic 66–268; BP diastolic 28–133; PULSE 68–103; RESP 11–26; TEMP 36.4–38.1; O2SAT 90–99; BMI 33.2
[2021-10-26] MEDS: enalaprilat 1.25 mg/mL Inj IVP (01:29)
[2021-10-26] MEDS: ondansetron 2 mg/ML SDV 2 mL 4 MG IVP ×5 (01:34→15:10)
[2021-10-26] MEDS: labetalol 5 mg/mL SDV 20mL 20 MG IVP (01:36)
[2021-10-26] MEDS: LORazepam 2 mg/mL INJ 1 mL 1 MG IVP (01:40)
[2021-10-26] MEDS: HYDROmorphone 1 mg/mL INJ 1 mL IVP (01:42)
[2021-10-26] MEDS: amlodipine 10 mg Tablet PO (01:47)
[2021-10-26 02:24] LABS: Add Urine Microscopic? NO; Charge for UA Resulting for Rev
[2021-10-26 02:25] LABS: Urine Appearance Clear (CLEAR); Urine Color Yellow (Yellow)
[2021-10-26 02:26] LABS: Bilirubin Urine Neg (Negative); Blood Urine Neg (Negative); Glucose Urine UA Norm (Normal); Ketones Urine 2+ (Negative); Leukocyte Esterase Urine Negative (Negative); Nitrate Urine Negative (Negative); Protein Urine Neg (Negative); Urobilinogen Urine 1 mg/dL (Negative); pH Urine 5 (5-7)
--- NOTE | 2021-10-26 02:42 | CTR_ITS ---
PROCEDURE INFORMATION: Exam: CT Abdomen And Pelvis With Contrast Exam date and time: 10/26/2021 2:42 AM Age: 41 years old Clinical indication: Abdominal pain; Generalized; Prior surgery; Surgery date: 6+ months; Surgery type: Gb; Patient HX: Fever, leukopenia; Additional info: Abd pain TECHNIQUE: Imaging protocol: Computed tomography of the abdomen and pelvis with contrast. Radiation optimization: All CT scans at this facility use at least one of these dose optimization techniques: automated exposure control; mA and/or kV adjustment per patient size (includes targeted exams where dose is matched to clinical indication); or iterative reconstruction. Contrast material: OMNI 300; Contrast volume: 95 ml; Contrast route: INTRAVENOUS (IV); COMPARISON: CT abdomen pelvis w con* [id number] 10/20/2020 6:23 AM RADIATION DOSE METRICS: Total DLP (mGy-cm): 1708.79 FINDINGS: Lungs: The lung bases are clear. Diaphragm: Small hiatal hernia. Liver: There is fatty infiltration of the liver. Gallbladder and bile ducts: Prior cholecystectomy, no significant biliary tree dilation. Pancreas: Unremarkable. Spleen: Small calcified granuloma in the spleen, unchanged. Adrenal glands: There is an 18 x 20 mm nodule in the left adrenal gland. Statistically, this is most likely a benign adenoma. However, it measures greater than water attenuation on this postcontrast scan. It may be slightly larger than on the prior exam. Therefore, a follow-up noncontrast CT, or MRI of the adrenal glands will be useful in the future for further followup, or evaluation/characterization. The right adrenal gland appears essentially unremarkable. Kidneys and ureters: No hydronephrosis of either kidney. No visible ureteral calculus. No perinephric fluid. Possible 5 mm cyst in the lower right kidney, too small to accurately characterize by CT. The kidneys otherwise enhance homogeneously. Stomach and bowel: No significant bowel distention. There are no CT findings to strongly suggest diverticulitis. Appendix: The appendix is possibly identified, and there are no suspicious findings for appendicitis. No pericecal inflammatory changes are seen. Intraperitoneal space: No free intraperitoneal air, or generalized ascites. Vasculature: No evidence for abdominal aortic aneurysm. Lymph nodes: No retroperitoneal adenopathy. Urinary bladder: Possibly some mild diffuse urinary bladder wall thickening. While nonspecific, this could indicate evidence for cystitis. Please correlate clinically. Reproductive: Possibly some fluid in the lower endometrial canal, versus a 2 cm fibroid in the lower uterine segment. The right ovary contains two dominant follicles versus small cysts, measuring 20 and 12 mm in size. Significance unlikely due to relatively small size. Trace amount of cul-de-sac fluid. Bones/joints: No significant acute finding. Soft tissues: No significant acute finding. CT/CT abdomen pelvis w con* [id number] IMPRESSION: 1. No findings to suggest appendicitis. 2. No free air or bowel distention. 3. Small left adrenal nodule, see above. 4. Possible mild urinary bladder wall thickening, see above. 5. Possible fibroid versus fluid in the lower uterine segment. 6. The right ovary contains two dominant follicles versus cyst, measuring 20 and 12 mm in size. Significance unlikely due to relatively small size. Trace amount of cul-de-sac fluid. 7. Other findings discussed above. COMMENTS: Consistent with the [employer]'s Incidental Findings Committee white paper (J Am Tammy Radiol 2018): Any incidental renal lesion less than 1 cm or classified as too small to characterize, or any incidental cystic renal lesion characterized as simple-appearing, is likely benign. No follow-up imaging is recommended for these lesions per consensus recommendations based on imaging criteria.
[2021-10-26] MEDS: HYDROmorphone 1 mg/mL INJ 1 mL 1.5 MG IVP (02:53)
[2021-10-26] MEDS: iohexol 300 mg/mL 100 mL Btl IV (03:15)
[2021-10-26] MEDS: nicardipine 20 MG/200 ML PREMIX 50 MG IV (03:23)
[2021-10-26 04:37] LABS: Glucose Point of Care 91 mg/dL (70-110)
[2021-10-26] MEDS: diphenhydrAMINE 50 mg/mL SDV 1mL (04:40)
[2021-10-26 05:42] LABS: Troponin(5th) Baseline 9 ng/L (0-10)
[2021-10-26] MEDS: nitroglycerin drip 50 MG/250 ML PREMIX IV (06:15)
--- NOTE | 2021-10-26 06:27 | ECG_ITS ---
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 Measurements Intervals [place] Rate: 93 P: 30 LA: 104 QRS: -6 QRSD: 94 T: 212 QT: 356 QTc: 443 Interpretive Statements SINUS RHYTHM WITH SHORT LA INTERVAL LEFT VENTRICULAR HYPERTROPHY AND ST-T CHANGE [VOLTAGE CRITERIA PLUS ST/T ABNORMALITY] INFERIOR MYOCARDIAL INFARCTION , OF INDETERMINATE AGE [40+ ms Q WAVE AND/OR ST/T ABNORMALITY IN II/aVF] ST-T changes in the anterolateral leads Compared to ECG 10/20/2020 15:06:35 Short LA interval now present Left ventricular hypertrophy now present ST (T wave) deviation now present Myocardial infarct finding now present Sinus tachycardia no longer present T-wave abnormality no longer present Possible ischemia no longer present Electronically Signed On 10-27-2021 0:00:57 CLOTH SPREADER SCREEN PRINTING by Дмитрий Brito M.D. [id number]
--- NOTE | 2021-10-26 07:15 | PC.NURSE ---
REPORT TO DUSTIN CHRISTENSEN IN ICU, PATIENT TRANSPORTED BY CART ON MONITOR
[2021-10-26 08:15] LABS: Troponin 5 2HR 9.68 ng/L (0-10); Troponin 5 2HR Delta 0.68 ABS# (0-10)
[2021-10-26 08:45] LABS: Creatine Phosphokinase 46 U/L (26-192)
[2021-10-26] MEDS: metoprolol tartrate 1 mg/1 mL SDV 5 mL 5 MG IVP ×2 (09:45→15:02)
[2021-10-26] MEDS: morphine ER (12 HR) 30 mg tablet PO (09:45)
[2021-10-26] MEDS: enoxaparin 40 mg/0.4 mL Syringe SUBCUT (09:53)
[2021-10-26] MEDS: tizanidine 4 mg Tablet 8 MG PO ×3 (09:54→23:22)
[2021-10-26] MEDS: pantoprazole 40 mg SDV IVP ×2 (09:54→21:21)
--- NOTE | 2021-10-26 10:03 | PC.CHAP ---
Pastoral Care Encounter/Spiritual Assessment Type of Contact [] Declined manager database administration visit [] Patient/Family/Request visit [] Outpatient visit [] Follow-up visit [] Physician referral [] Code/Alert [x] Routine visit [] Staff referral [] Actively dying [] Patient sleeping [] Family support [] [] Out of room [] Palliative care [] [x] Receiving care in room [] Pre-surgical visit [] Trauma [] Long length of stay [x] ICU visit [] Other: Relational/Emotional Strength [] Patient feels connected with others/family/visitors/staff [] Distress [] Loneliness/isolation [] Abandonment Spirituality of Patient [] Person of [place] [] Attends Uatsdin of their [place] [] Believes in Prayer [] Reads Bible or Worship materials [] There are Spiritual issues to be addressed 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 Interventions [x] Prayer [] Active listening [] Non-anxious presence [] Spiritual/emotional support [] Crisis/trauma care [] Spiritual counseling [] Bereavement support [] Provided bereavement packet [] Provided Bible/devotional materials [] Provided toy/stuffed animal, coloring book to patient or family member [] Provided Communion [] Anointing/Forney [] Salvation [x] Completed spiritual assessment [] Other: Impact on Illness or Injury [] Angry [] Fearful [] Anxious [] Often cries [] Exhaustion [] Unable to work [] Unable to attend uatsdin [] Unable to walk/stand [] Unable to read [] Unable to drive [] Unable to eat/drink [] Unable to sleep [] Unable to be with family [] Patient intubated [] Other: Summary Time spent with patient
--- NOTE | 2021-10-26 10:03 | P.HP_ITS ---
Providers/Chief Complaint Admitting Physician: Chemo Oviedo MD Primary Care Provider: Yony Otero MD Chief Complaint: sob, cough,n/v, History of Present Illness Eleanor Ragland is a 41 year old female who presented to the ER for fever, cough, runny nose, N/V/D that started last week. PMH is significant for epilepsy, chronic pancreatitis, diabetes, HTN. She states that she recently went to her mother's on 10/17/21 where there was COVID exposure. She has had decreased PO intake for the past week due to nausea and has subsequently been unable to take many of her usual home meds. Note that she is normally on morphine chronically but has been unable to keep it down for awhile. She also complains of primarily right-sided upper abdominal pain that wraps around to her back that started sometime last week and is similar to her chronic pancreatitis pain. Her last bowel movement was a couple of days ago and was yellow and liquidy. She also endorses headache and some SOB. She denies chest pain or coughing up blood. She does not specifically have any neck pain. Upon ER arrival, temp was 100.5 and BP was 177/117. Heart rate was slightly tachycardic. CXR and head CT were unremarkable. She was started on nicardipine and nitroglycerin in the ER. When seen later in the ICU, she requested that her room lights be turned off. She received some IV narcotic in the emergency department, IV benzodiazepine. She believes she might benefit from her muscle relaxant being restarted as she takes this relatively regularly. COVID PCR performed 10/20/21 and 10/23/21 were negative. She is not vaccinated and had COVID back in 09/2021. Review of Systems General: Reports: 10 or more systems reviewed and unremarkable except in HPI and below Const: Reports: fever(s) Eyes: Denies: change in vision ENMT: Denies: dry mouth Card: Denies: chest pain Resp: Reports: dyspnea; Denies: hemoptysis GI: Reports: abdominal pain, nausea and vomiting; Denies: hematemesis or melena : Denies: hematuria Musc: Denies: neck pain Skin/Breast: Reports: rash Neuro: Reports: headache(s) Psych: Denies: memory loss Endo: Denies: polyuria Benjy/Lymph: Denies: easy bruising All/Imm: Denies: acute wheezing Medications/Allergies Home Medications Medication Instructions Recorded Confirmed Last Taken Type blood sugar diagnostic See Rx Instructions .ROUTE 03/03/21 10/23/21 Unknown Rx .COMPLEX #100 ea wheelchair #1 ea 03/26/21 10/23/21 Unknown Rx zolpidem 5 mg tablet 5 mg PO BEDTIME PRN #30 tab 05/04/21 10/23/21 Unknown Rx wheelchair #1 ea 05/28/21 10/23/21 Unknown Rx STANDARD WHEELCHAIR #1 ea 05/29/21 10/23/21 Unknown Rx csejuf-evqbxasp-pysduiz 1 cap PO TID #90 cap 08/03/21 10/23/21 Unknown Rx 40,000-126,000-168,000 unit capsule, delay rel brivaracetam 25 mg tablet 25 mg PO DAILY@08 #60 tab 09/24/21 10/23/21 Unknown Rx pantoprazole 40 mg tablet,delayed 40 mg PO BID@08,20 #90 tab 09/30/21 10/23/21 Unknown Rx release tizanidine 4 mg tablet 8 mg PO TID PRN 30 Days #180 tab 09/30/21 10/23/21 Unknown Rx carvedilol 12.5 mg tablet 12.5 mg PO BID #60 tab 10/06/21 10/23/21 Unknown Rx morphine 30 mg tablet,extended 30 mg PO Q12H 30 Days #60 tab 10/06/21 10/23/21 Unknown Rx release lorazepam 0.5 mg tablet 0.5 mg PO TID PRN #10 tab 10/15/21 10/23/21 Unknown Rx ondansetron HCl 4 mg tablet 4 mg PO Q8H PRN #20 tab 10/22/21 10/23/21 Unknown Rx diphenhydramine HCl [Benadryl] 25 mg PO Q6H PRN 10/26/21 10/26/21 Unknown History polyethylene glycol 3350 [Miralax] 17 g PO QAM 10/26/21 10/26/21 Unknown History Allergies Allergy/AdvReac Type Severity Reaction Status Date / Time canagliflozin [From Invokana] Allergy Severe abdominal Verified 10/23/21 11:20 pain aspirin Allergy Unknown Verified 10/23/21 11:20 ketorolac [From Toradol] Allergy Unknown Verified 10/23/21 11:20 tramadol [From Ultram] Allergy Unknown Verified 10/23/21 11:20 PFSH Acute PFSH: Medical History (Updated 10/26/21 @ 10:39 by Richard Sequeira MD) CHF (congestive heart failure) Chronic pain of lower extremity, bilateral Chronic pancreatitis 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 Constipation Constipation Diabetes Epilepsy Essential (primary) hypertension GI bleed Hypertensive urgency Primary osteoarthritis Recurrent vomiting Surgical History History of bilateral knee replacement History of cholecystectomy History of D&C 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 Family History Grandmother Cancer Lung disease Stroke Mother Lung disease Other A-fib CHF (congestive heart failure) Social History Smoking and tobacco status: never smoked Alcohol intake: never Household members: spouse Housing: House Marital status: Current occupational status: disabled History of recent travel: No Vitals/I&O/Wt Last Vital Signs Temp 98.5 F 10/26/21 07:35 Pulse 93 10/26/21 07:45 Resp 13 10/26/21 07:45 BP 232/122 10/26/21 07:45 Pulse Ox 93 10/26/21 07:35 10/25/21 10/26/21 10/26/21 22:59 06:59 14:59 Intake Total 117.5 / 117.5 256.80 / 256.80 Balance 117.5 / 117.5 256.80 / 256.80 Weight last 48 hrs Weight 77.111 kg Weight 68.039 kg Physical Exam Narrative: EXAM NARRATIVE: General exam currently, white female complaining of some abdominal discomfort. HEENT: Pupils equally round. Oropharynx clear. Neck is supple no lymphadenopathy or thyromegaly Cardiovascular borderline tachycardic, no murmur Lungs clear no wheezing or crackles Abdomen obese, soft. Some generalized tenderness more in the right. Positive bowel sounds. exam deferred Extremities no cyanosis clubbing or edema. Some erythematous, and excoriations are noted mainly on the upper extremities. Skin see findings above Neuro no obvious focal deficits Data : 10/25/21 21:53 10/25/21 21:53 Micro: Microbiology 10/26/21 09:20 Blood Culture - Preliminary Blood SPECIMEN COLLECTED 10/26/21 07:45 Blood Culture - Preliminary Blood SPECIMEN COLLECTED Other data: CXR and head CT unremarkable CT abdomen showed 1 small left adrenal nodule and 2 small follicles vs. cysts on right ovary (significance unlikely due to size) EKG sinus rhythm with left ventricular hypertrophy WBC 13.5 Anion gap 27.8 AST, ALP mildly elevated Lipase 46 Troponins normal COVID PCR 10/20/21 and 10/23/21 negative Blood cultures drawn A&P Assessment and plan (1) Hypertensive urgency: Placed on nitroglycerin drip in the emergency department. Titrate, for blood pressure response. Some of this could be secondary to her not taking her medicines with nausea and vomiting lately associated with her abdominal pain and likely acute on chronic pancreatitis. Other etiology could be significant withdrawal Troponins were negative Beta-bimal drug withdrawal is not excluded. Initiate metoprolol 5 mg IV every 6 hours. Status: Acute (2) Abdominal pain: Has history of chronic pancreatitis. Patient believes pain is similar. Pain could also be secondary to withdrawal. She believes she can tolerate her p.o. medicines. We will start her morphine twice daily and see if her abdominal pain improves. Status: Acute (3) Fever: Blood cultures drawn No obvious etiology on chest x-ray, urinalysis, CT abdomen and pelvis. At this point antibiotics will not be continued. Temperature has improved. Temperature elevation could be due to withdrawal. Status: Acute (4) Chronic pancreatitis: Patient with history of chronic pancreatitis. No new findings on CT abdomen and pelvis. Status: Acute Qualifiers: Pancreatitis type: other Qualified Code(s): K86.1 - Other chronic pancreatitis (5) Epilepsy: Reinitiate her antiepileptic drug as soon as possible. Seizure precautions Status: Acute Additional A&P Information Multiple other medical problems as outlined in her past medical history. Full code Lovenox for DVT prophylaxis. Attestations Medical Necessity Statement*: Will need greater than 2 midnight stay secondary to hypertensive urgency/emergency with requirement for IV nitrates Time Spent in Patient Care: Greater than 35 minutes Critical Care Time: Critical Care Time (min): 56 Other Attestations: The high probability of a clinically significant, sudden or life threatening deterioration of the patient's [vascular, GI] system(s) required my full and direct attention, intervention and personal management. The critical care time is as shown. 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
--- NOTE | 2021-10-26 10:27 | ECG_ITS ---
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 Measurements Intervals [place] Rate: 78 P: 12 RI: 126 QRS: -2 QRSD: 85 T: 5 QT: 397 QTc: 455 Interpretive Statements SINUS RHYTHM LEFT VENTRICULAR HYPERTROPHY AND ST-T CHANGE [VOLTAGE CRITERIA PLUS ST/T ABNORMALITY] INFERIOR MYOCARDIAL INFARCTION , OF INDETERMINATE AGE [40+ ms Q WAVE AND/OR ST/T ABNORMALITY IN II/aVF] Compared to ECG 10/26/2021 06:16:45 Short RI interval no longer present ST (T wave) deviation still present Myocardial infarct finding still present Electronically Signed On 10-27-2021 0:01:17 COIN DEALER by Дмитрий Brito M.D. [email or web address] [email or web address]/[id number]
[2021-10-26] MEDS: sodium chloride 0.9% 1,000 ML 100 ML IV ×2 (11:05→12:22)
[2021-10-26] MEDS: naloxone 0.4 mg/ml SDV IVP (11:21)
[2021-10-26 12:04] LABS: Basophils # 0.1 10^3/uL (0.0-0.1); Basophils % 0.5 %; Hematocrit 43.3 % (37.0-47.0); Hemoglobin 13.8 g/dL (11.5-15.3); Lymphocytes # 2.1 10^3/uL (0.8-4.8); Lymphocytes % 17.4 %; Mean Corpuscular HGB Conc 31.9 g/dL (30.0-36.0); Mean Corpuscular Hemoglobin 29.4 pg (28.0-34.0); Mean Corpuscular Volume 92.3 fl (81-99); Mean Platelet Volume 12.5 fL (7.4-10.4); Monocytes # 0.8 10^3/uL (0.2-0.9); Monocytes % 6.4 %; Neutrophils # 8.88 10^3/uL (1.8-7.7); Neutrophils % 75.2 %; Nucleated Red Blood Cells % 0 %; Platelet Count 181 10^3/cmm (130-400); Red Blood Count 4.69 10^6/uL (4.1-5.3); Red Cell Distribution Width 13.2 % (12.1-15.1); White Blood Count 11.8 10^3/uL (4.0-10.0)
[2021-10-26] MEDS: sodium chloride 0.9% 500 ML 999 ML IV ×3 (12:21)
[2021-10-26 12:26] LABS: Troponin 5 6HR 10.81 ng/L (0-10); Troponin 5 6HR Delta 1.81 ng/L (0-12)
[2021-10-26 12:41] LABS: Adenovirus Not Detected (NOT DETECT); Chlamydia Pneumoniae Not Detected (NOT DETECT); Coronavirus 229E,HKU1,NL63,OC4 Not Detected (NOT DETECT); Human Metapneumovirus Not Detected (NOT DETECT); Human Rhinovirus/Enterovirus Not Detected (NOT DETECT); Influenza A Not Detected (NOT DETECT); Influenza A H1 Not Detected (NOT DETECT); Influenza A H1-2009 Not Detected (NOT DETECT); Influenza A H3 Not Detected (NOT DETECT); Influenza B Not Detected (NOT DETECT); Mycoplasma Pneumoniae Not Detected (NOT DETECT); Parainfluenza Virus Type 1 Not Detected (NOT DETECT); Parainfluenza Virus Type 2 Not Detected (NOT DETECT); Parainfluenza Virus Type 3 Not Detected (NOT DETECT); Parainfluenza Virus Type 4 Not Detected (NOT DETECT); Respiratory Syncytial Virus A Not Detected (NOT DETECT); Respiratory Syncytial Virus B Not Detected (NOT DETECT); SARS-COV-2 Not Detected (NOT DETECT)
[2021-10-26 12:46] LABS: Alanine Aminotransferase 26 U/L (0-33); Albumin Level 3.6 g/dL (3.5-5.2); Alkaline Phosphatase 97 IU/L (35-105); Anion Gap 25.4 (5-19); Aspartate Amino Transferase 33 U/L (0-32); Blood Urea Nitrogen 9 mg/dL (6-20); Calcium 9.2 mg/dL (8.5-10.5); Carbon Dioxide 12 mmol/L (22-29); Chloride 101 mmol/L (98-107); Creatinine Clr Calc Pharmacy 113.2604; Globulin 2.7 g/dL (1.3-4.6); Glomerular Filtration Rate 110.2 mL/min (90-130); Glucose 145 mg/dL (65-115); Lipase 43 U/L (13-60); Osmolality Calculated 279 mOsm/kg (285-295); Potassium 4.4 mmol/L (3.5-5.1); Sodium 134 mmol/L (136-145); Total Bilirubin 0.6 mg/dL (0.15-1.2); Total Protein 6.3 g/dL (6.6-8.7)
[2021-10-26] MEDS: oxyCODONE 5 mg IR Tab/Cap PO ×2 (15:00→21:20)
[2021-10-26] MEDS: acetaminophen 325 mg Tablet 650 MG PO (18:22)
--- NOTE | 2021-10-26 22:41 | PC.NURSE ---
Pt resting quietly in bed with eyes closed.
[2021-10-27] VITALS (95 sets, daily range): BP systolic 85–244; BP diastolic 37–128; PULSE 64–98; RESP 10–35; TEMP 36.8–37.4; O2SAT 92–99
--- NOTE | 2021-10-27 02:20 | PC.NURSE ---
Pt has fine red rash covering bilateral arms. Rash is not present on torso or legs.
[2021-10-27] MEDS: oxyCODONE 5 mg IR Tab/Cap PO (02:41)
[2021-10-27] MEDS: tizanidine 4 mg Tablet 8 MG PO (05:00)
[2021-10-27 05:30] LABS: Alanine Aminotransferase 25 U/L (0-33); Alkaline Phosphatase 101 IU/L (35-105); Aspartate Amino Transferase 28 U/L (0-32); Blood Urea Nitrogen 9 mg/dL (6-20); Calcium 9.8 mg/dL (8.5-10.5); Carbon Dioxide 18 mmol/L (22-29); Chloride 106 mmol/L (98-107); Creatinine Clr Calc Pharmacy 113.2604; Globulin 2.3 g/dL (1.3-4.6); Glomerular Filtration Rate 110.2 mL/min (90-130); Glucose 109 mg/dL (65-115); Osmolality Calculated 289 mOsm/kg (285-295); Sodium 140 mmol/L (136-145); Total Bilirubin 0.9 mg/dL (0.15-1.2); Total Protein 6.3 g/dL (6.6-8.7)
[2021-10-27 05:38] LABS: Anion Gap 20.2 (5-19); Potassium 4.2 mmol/L (3.5-5.1)
[2021-10-27 05:39] LABS: Basophils # 0.1 10^3/uL (0.0-0.1); Basophils % 0.7 %; Eosinophils # 0.1 10^3/uL (0.0-0.8); Hematocrit 47.1 % (37.0-47.0); Hemoglobin 15.5 g/dL (11.5-15.3); Lymphocytes # 4.5 10^3/uL (0.8-4.8); Lymphocytes % 46.2 %; Mean Corpuscular HGB Conc 32.9 g/dL (30.0-36.0); Mean Corpuscular Hemoglobin 29.2 pg (28.0-34.0); Mean Corpuscular Volume 88.7 fl (81-99); Mean Platelet Volume 12.5 fL (7.4-10.4); Monocytes # 0.9 10^3/uL (0.2-0.9); Monocytes % 9.3 %; Neutrophils # 4.15 10^3/uL (1.8-7.7); Neutrophils % 42.5 %; Nucleated Red Blood Cells % 0 %; Platelet Count 204 10^3/cmm (130-400); Red Blood Count 5.31 10^6/uL (4.1-5.3); Red Cell Distribution Width 13.4 % (12.1-15.1); White Blood Count 9.8 10^3/uL (4.0-10.0)
--- NOTE | 2021-10-27 05:44 | PC.NURSE ---
Pt assessment unchanged, except for the patient is now hypertensive.
[2021-10-27] MEDS: morphine ER (12 HR) 15 mg Tablet PO ×2 (08:00→21:45)
[2021-10-27] MEDS: carvedilol 3.125 mg Tablet PO (08:00)
[2021-10-27] MEDS: polyethylene glycol 3350 Pkt 17 gm PO ×2 (08:00→17:06)
[2021-10-27] MEDS: lipase-protease-amylase Capsule 1 EACH PO ×3 (08:01→17:06)
[2021-10-27] MEDS: ondansetron 2 mg/ML SDV 2 mL 4 MG IVP ×3 (09:11→19:06)
[2021-10-27] MEDS: LORazepam 2 mg/mL INJ 1 mL 0.5 MG IVP ×3 (09:33→20:28)
--- NOTE | 2021-10-27 09:36 | USCV_ITS ---
Eleanor Ragland Age: 41 Gender: F : 1980 Exam Date: 10/27/2021 10:00 Ordering Phys: Richard Sequeira MD Technologist: Exam Location: [facility] Indication: htn BP: 275 / 110 HR: 83 Rhythm: Sinus Technical Quality: Adequate MEASUREMENTS (Male / Female) Normal Values 2D ECHO LV Diastolic Diameter PLAX 4.0 cm 4.2 - 5.9 / 3.9 - 5.3 cm LV Systolic Diameter PLAX 2.0 cm IVS Diastolic Thickness 1.4 cm 0.6 - 1.0 / 0.6 - 0.9 cm IVS Systolic Thickness 1.6 cm LVPW Diastolic Thickness 1.1 cm 0.6 - 1.0 / 0.6 - 0.9 cm LVPW Systolic Thickness 1.1 cm LVOT Diameter 2.1 cm LV Ejection Fraction 2D Teich 81.0 % LV Ejection Fraction MOD 2C 60.1 % LV Ejection Fraction 2C AL 59.6 % LA Diameter 4.0 cm LA Width 4.0 cm LA Height 4.5 cm RA Width 2.9 cm RA Height 3.1 cm Aorta at Sinotubular Diameter 2.0 cm M-MODE Aortic Annulus Diameter 3.0 cm LA Ao Ratio MM 1.6 MV E Point Septal Separation 1.7 cm DOPPLER AV Peak Velocity 305.0 cm/s LVOT Peak Velocity 137.0 cm/s AV Area Cont Eq vti 1.6 cm squared AV Area Cont Eq pk 1.5 cm squared MV Area PHT 5.0 cm squared Mitral E to A Ratio 1.0 MV E' Velocity 57.0 cm/s Mitral E to MV E' Ratio 12.0 Mitral E to LV E' Lateral Ratio 11.6 Mitral E to LV E' Septal Ratio 12.6 TR Peak Velocity 316.0 cm/s TR Peak Gradient 39.9 mmHg TV Peak E Velocity 77.0 cm/s Right Atrial Pressure 3.0 mmHg Pulmonary Artery Systolic Pressu 42.9 mmHg FINDINGS Left Ventricle Normal left ventricular size and systolic function, EF 64 %. Mild left ventricular hypertrophy. There is asymmetric hypertrophy of the basal septum. No regional wall motion abnormalities. Grade I/IV diastolic dysfunction (abnormal relaxation filling pattern), normal to mildly elevated filling pressures. Right Ventricle The right ventricle is normal in size and function. Right Atrium The right atrium is normal in size. Left Atrium Mildly increased left atrial size. Mitral Valve Mild mitral valve regurgitation. There is some systolic anterior motion of the mitral leaflet Aortic Valve Moderately severe aortic regurgitation. Mild aortic valve stenosis, mean gradient 17.7 mmHg, PURNIMA 1.6 cm squared. The LV outflow tract velocity was 2.78 m/s at the resting. With the Valsalva, it went up to 5.99 m/s Tricuspid Valve Trace tricuspid valve regurgitation. Estimated pulmonary artery peak systolic pressure was 43 mmHg Pulmonic Valve No gross abnormalities noted Pericardium No pericardial effusion. Aorta Normal ascending aorta dimension. CONCLUSIONS Normal left ventricular size and systolic function, EF 64 %. Mild left ventricular hypertrophy. No regional wall motion abnormalities. Grade I/IV diastolic dysfunction (abnormal relaxation filling pattern), normal to mildly elevated filling pressures. Moderately severe aortic valve regurgitation. Features of IHSS with resting gradient of 31 mmHg, going up to 143 millimeters of mercury with Valsalva Mild aortic valve stenosis, mean gradient 17.7 mmHg, PURNIMA 1.6 cm squared. This could be an underestimation because of the IHSS Mildly increased left atrial size. Mild mitral valve regurgitation. Trace tricuspid valve regurgitation. Mild pulmonary hypertension. Estimated pulmonary artery peak systolic pressure was 43 mmHg There is no pericardial effusion. There are no intracardiac masses. Compared to the study from 10/20/2020, there is no significant change in the resting gradient across the LV outflow tract. Dr Дмитрий Brito MD [facility] (Electronically Signed) Final Date: 28 October 2021 10:44 S
[2021-10-27] MEDS: enoxaparin 40 mg/0.4 mL Syringe SUBCUT (09:41)
[2021-10-27] MEDS: pantoprazole 40 mg SDV IVP ×2 (09:41→21:45)
--- NOTE | 2021-10-27 10:08 | PM.PN ---
Documented by User: Moon Mackay MED STDNT 10/27/21 10:33 Subjective Subjective: Interval history: Eleanor has no specific complaints this morning. She wanted to know the results of her plasma metanephrines tested on 10/20/20. She appears overall improved from yesterday. Vitals/I&O/Wt Last Vital Signs Temp 99.4 F 10/27/21 04:00 Pulse 67 10/27/21 08:15 Resp 16 10/27/21 08:15 BP 143/63 10/27/21 08:15 Pulse Ox 97 10/27/21 08:15 10/26/21 10/27/21 10/27/21 22:59 06:59 14:59 Intake Total 847.916 / 3982.649 360 / 4342.649 480 / 480 Output Total 1220 / 1220 75 / 1295 200 / 200 Balance -372.084 / 2762.649 285 / 3047.649 280 / 280 Weight last 48 hrs Weight 80.467 kg Weight 77.111 kg Weight 68.039 kg Physical Exam Narrative: EXAM NARRATIVE: General: in no acute distress HEENT: normocephalic, atraumatic, pupils equally round, oropharynx clear Neck: supple, no thyromegaly, no lymphadenopathy Cardiovascular: RRR without murmurs Lungs: clear bilaterally, no wheezing Abdomen: soft, nondistended, positive bowel sounds Extremities: no cyanosis, clubbing, or edema. Some excoriations noted on upper extremities. Skin: see findings above Neuro: no obvious focal deficits Urinary Catheter Management^: Preston: Cath Placed During This Visit: yes Reason for Continuing Indwelling Catheter: Accurate Measurement of Urinary Output in Critically Ill Patients Urinary Catheter Date of Insertion: 10/26/21 Urinary Catheter Time of Insertion: 12:14 Data : 10/27/21 04:35 10/27/21 04:35 Other Labs: COVID PCR negative on 10/26/21 WBC 9.8 from 11.8 Anion gap 20 from 25 Plasma metaphrines tested on 10/20/20 showed free normetaphrine 576, total free metanephrine + normetaphrine 616. This will be repeated. Micro: Microbiology 10/26/21 09:20 Blood Culture - Preliminary Blood NEGATIVE TO DATE 10/26/21 07:45 Blood Culture - Preliminary Blood NEGATIVE TO DATE A&P Assessment and plan (1) Hypertensive urgency: Status: Acute (2) Abdominal pain: Status: Acute (3) Fever: Status: Acute (4) Chronic pancreatitis: Status: Acute Qualifiers: Pancreatitis type: other Qualified Code(s): K86.1 - Other chronic pancreatitis (5) Epilepsy: Status: Acute Plan (1) Hypertensive urgency: Some of this could be secondary to her not taking her medicines with nausea and vomiting lately associated with her abdominal pain and likely acute on chronic pancreatitis. Other etiology could be significant withdrawal Troponins were negative Initiate carvedilol 3.125mg PO BID Patient will be transferred to floor today if there is available bed ?Status:?Acute (2) Abdominal pain: ? ? ? Has history of chronic pancreatitis.? Patient believes pain is similar.? Pain could also be secondary to withdrawal. She believes she can tolerate her p.o. medicines. Decrease morphine to 15mg PO BID Decrease PRN tizanidine to 4mg PO TID ?Status:?Acute (3) Fever: ? ? ? Blood cultures drawn and negative to date No obvious etiology on chest x-ray, urinalysis, CT abdomen and pelvis. At this point antibiotics will not be continued.? Temperature has improved.? Temperature elevation could be due to withdrawal. ?Status:?Acute (4) Chronic pancreatitis: ? ? ? Patient with history of chronic pancreatitis.? No new findings on CT abdomen and pelvis. ?Status:?Acute ?Qualifiers: ?Pancreatitis type:?other? Qualified Code(s):?K86.1 - Other chronic pancreatitis (5) Epilepsy: ? ? ? Initiate brivaracetam 25mg PO daily Seizure precautions ?Status:?Acute Additional A&P Information Multiple other medical problems as outlined in her past medical history. Plasma metaphrines tested on 10/20/20 showed free normetaphrine 576, total free metanephrine + normetaphrine 616. This will be repeated. Full code Lovenox for DVT prophylaxis. Coding Level of Care Code Acute Engine Lathe Operator for Chg Fwd Diagnoses Hypertensive urgency I16.0 Abdominal pain R10.9 Fever R50.9 Chronic pancreatitis K86.1 Pancreatitis type: other Epilepsy G40.909 Documented by User: Richard Sequeira MD 10/27/21 14:12 Subjective Subjective: Interval history: Eleanor has no specific complaints this morning. She wanted to know the results of her plasma metanephrines tested on 10/20/20. She appears overall improved from yesterday. Admitted with above. Since that time she has had a headache, requiring Phenergan and now her blood pressure is lower. It is very quite a bit depending on when she is nauseous. Physical Exam Narrative: EXAM NARRATIVE: General: in no acute distress HEENT: normocephalic, atraumatic, pupils equally round, oropharynx clear Neck: supple, no thyromegaly, no lymphadenopathy Cardiovascular: RRR without murmurs Lungs: clear bilaterally, no wheezing Abdomen: soft, nondistended, positive bowel sounds Extremities: no cyanosis, clubbing, or edema. Some excoriations noted on upper extremities. Skin: see findings above Neuro: no obvious focal deficits Agree with above Urinary Catheter Management^: Preston: Cath Placed During This Visit: yes Data : 10/27/21 04:35 10/27/21 04:35 A&P Assessment and plan (1) Hypertensive urgency: Now with some lower pressures. Trying to stabilize. Status: Acute (2) Abdominal pain: Waxes and wanes. Likely currently overall better. Status: Acute (3) Fever: No etiology found. Await cultures. Negative to date. Status: Acute (4) Chronic pancreatitis: Home medications restarted Status: Acute Qualifiers: Pancreatitis type: other Qualified Code(s): K86.1 - Other chronic pancreatitis (5) Epilepsy: No seizures in the hospital. Home medication restarted Status: Acute Plan (1) Hypertensive urgency: Some of this could be secondary to her not taking her medicines with nausea and vomiting lately associated with her abdominal pain and likely acute on chronic pancreatitis. Other etiology could be significant withdrawal Troponins were negative Carvedilol initiated this morning. Increased to 6.25 mg twice daily Nitroglycerin ointment was initiated. Patient will be transferred to floor today if there is available bed ?Status:?Acute (2) Abdominal pain: ? ? ? Has history of chronic pancreatitis.? Patient believes pain is similar.? Pain could also be secondary to withdrawal. She believes she can tolerate her p.o. medicines. Decrease morphine to 15mg PO BID Phenergan as needed for nausea Decrease PRN tizanidine to 4mg PO TID ?Status:?Acute (3) Fever: ? ? ? Blood cultures drawn and negative to date No obvious etiology on chest x-ray, urinalysis, CT abdomen and pelvis. At this point antibiotics will not be continued.? Temperature has improved.? Temperature elevation could be due to withdrawal. ?Status:?Acute (4) Chronic pancreatitis: ? ? ? Patient with history of chronic pancreatitis.? No new findings on CT abdomen and pelvis. ?Status:?Acute ?Qualifiers: ?Pancreatitis type:?other? Qualified Code(s):?K86.1 - Other chronic pancreatitis (5) Epilepsy: ? ? ?Continue brivaracetam 25mg PO daily Seizure precautions ?Status:?Acute Additional A&P Information Multiple other medical problems as outlined in her past medical history. Plasma metaphrines tested on 10/20/20 showed free normetaphrine 576, total free metanephrine + normetaphrine 616. This will be repeated on blood in lab Full code Lovenox for DVT prophylaxis. Agree with above Attestations Medical Necessity Statement*: Needs continued hospitalization for adjustment of medications for blood pressure, pain control, control of recalcitrant nausea and vomiting. Coding Level of Care Code Acute Engine Lathe Operator for Chg Fwd Diagnoses Hypertensive urgency I16.0 Abdominal pain R10.9 Fever R50.9 Chronic pancreatitis K86.1 Pancreatitis type: other Epilepsy G40.909
[2021-10-27] MEDS: tizanidine 4 mg Tablet PO ×2 (11:00→19:21)
[2021-10-27] MEDS: acetaminophen 325 mg Tablet 650 MG PO ×2 (12:04→22:51)
[2021-10-27] MEDS: promethazine 25 mg/mL SDV 1 mL IM ×2 (13:58→21:54)
[2021-10-27] MEDS: nitroglycerin 1 gm/inch oint Pkt 1 INCH TOPICAL ×2 (14:04→17:06)
[2021-10-27] MEDS: metoprolol tartrate 1 mg/1 mL SDV 5 mL 5 MG IVP (14:04)
[2021-10-27] MEDS: doxazosin 1 mg Tablet PO (17:16)
[2021-10-27 17:33] LABS: T3 Free 1.9 PG/ML (2.0-4.4); Thyroid Stimulating Hormone 1.06 uIU/mL (0.27-4.20)
[2021-10-27] MEDS: carvedilol 6.25 mg Tablet PO ×2 (19:21→23:58)
--- NOTE | 2021-10-27 19:51 | PC.NURSE ---
Rash covers both arms. No rash observed on torso, face, or legs.
--- NOTE | 2021-10-27 21:01 | PM.CONSULT ---
Providers/Reason For Consult Consulting Physician/Specialty*: CHEYENNE Brito MD/cardiology Reason for Consult*: Patient with accelerated hypertension and intermittent hypotension Requesting Physician: Dr. Sequeira Attending Physician: Richard Sequeira MD Primary Care Provider: Yony Otero MD History of Present Illness History of Present Illness Eleanor Ragland is a 41 year old female, is admitted to hospital through the emergency room where she presented with complaints of low-grade fever, abdominal pain, nausea vomiting and diarrhea. She was found to have accelerated hypertension with a systolic blood pressure in the 190s and diastolic in the 120s. She was given IV nicardipine and nitroglycerin in the ER. She is admitted to the ICU for further evaluation and management. Patient apparently was found to have a very highly fluctuating blood pressure with a systolic blood pressure going up into the 270s and diastolic in the 130s. She also was found to be very sensitive to medications. 1 time she was given IV Lopressor 5 mg which dropped her blood pressure precipitously to a mean arterial pressure of 40. Heavy baseline artifact; need to repeat seems to be intolerant or allergic to multiple medications. She had some reaction to amlodipine and doxazosin. She was found to have a small adenoma in the adrenal gland by CT scan in the past. Has a history of? IHSS. Longstanding history of hypertension. She also has a history of epilepsy, chronic pancreatitis, diabetes, hypertension, chronic pain syndrome. Since the heart failure seems to be compensated likely, patient may not require any specific intervention at this time. Advised to continue on the current medications. 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 He denies any chest pain. However when the blood pressure goes too high, she get a tight feeling in the chest and also in the back of the neck. She may get some headache as well. She had work-up for secondary hypertension last year and was found to have elevated levels of norepinephrine. Medications/Allergies Home Medications Medication Instructions Recorded Confirmed Last Taken Type blood sugar diagnostic (OneTouch See Rx Instructions .ROUTE 03/03/21 10/26/21 Unknown Rx Ultra Blue Test Strip) .COMPLEX #100 ea wheelchair #1 ea 03/26/21 10/26/21 Unknown Rx zolpidem 5 mg tablet 5 mg PO BEDTIME PRN #30 tab 05/04/21 10/26/21 Unknown Rx wheelchair #1 ea 05/28/21 10/26/21 Unknown Rx STANDARD WHEELCHAIR #1 ea 05/29/21 10/26/21 Unknown Rx djykyv-peewffmk-ebsofhf 1 cap PO TID #90 cap 08/03/21 10/26/21 Unknown Rx 40,000-126,000-168,000 unit capsule, delay rel (Zenpep) brivaracetam 25 mg tablet 25 mg PO DAILY@08 #60 tab 09/24/21 10/26/21 Unknown Rx (Briviact) pantoprazole 40 mg tablet,delayed 40 mg PO BID@08,20 #90 tab 09/30/21 10/26/21 Unknown Rx release tizanidine 4 mg tablet 8 mg PO TID PRN 30 Days #180 tab 09/30/21 10/26/21 Unknown Rx carvedilol 12.5 mg tablet 12.5 mg PO BID #60 tab 10/06/21 10/26/21 Unknown Rx morphine 30 mg tablet,extended 30 mg PO Q12H 30 Days #60 tab 10/06/21 10/26/21 Unknown Rx release lorazepam 0.5 mg tablet (Ativan) 0.5 mg PO TID PRN #10 tab 10/15/21 10/26/21 Unknown Rx ondansetron HCl 4 mg tablet 4 mg PO Q8H PRN #20 tab 10/22/21 10/26/21 Unknown Rx diphenhydramine HCl 25 mg capsule 25 mg PO Q6H PRN 10/26/21 10/26/21 Unknown History (Benadryl) polyethylene glycol 3350 17 17 g PO QAM 10/26/21 10/26/21 Unknown History gram/dose oral powder (Miralax) Allergies Allergy/AdvReac Type Severity Reaction Status Date / Time canagliflozin [From Invokana] Allergy Severe abdominal Verified 10/23/21 11:20 pain aspirin Allergy Unknown Verified 10/23/21 11:20 ketorolac [From Toradol] Allergy Unknown Verified 10/23/21 11:20 tramadol [From Ultram] Allergy Unknown Verified 10/23/21 11:20 Current Medications Generic Name Dose Route Start Last Admin Trade Name Freq PRN Reason Stop Dose Admin Acetaminophen 650 mg 10/26/21 09:36 10/27/21 12:04 Acetaminophen 325 Mg Tablet PO 650 mg Q6H PRN Administration MILD PAIN Lipase/Protease/Amylase 1 each 10/27/21 08:00 10/27/21 17:06 Eortdf-Mhygatzd-Ymjhlwi Capsule PO 1 each TIDWM LEANDRA Administration Enoxaparin Sodium 40 mg 10/26/21 10:30 10/27/21 09:41 Enoxaparin 40 Mg/0.4 Ml Syringe SUBCUT 40 mg Q24H LEANDRA Administration Lorazepam 0.5 mg 10/27/21 09:39 10/27/21 15:15 Lorazepam 2 Mg/Ml Inj 1 Ml IVP 0.5 mg Q6H PRN Administration ANXIETY Morphine Sulfate 15 mg 10/27/21 09:00 10/27/21 08:00 Morphine Er (12 Hr) 15 Mg Tablet PO 15 mg BID@0900,2100 [facility] Administration Nitroglycerin 1 inch 10/27/21 11:30 10/27/21 17:06 Nitroglycerin 1 Gm/Inch Oint Pkt TOPICAL 1 inch Q6H LEANDRA Administration Non-Formulary Medication 25 mg 10/27/21 08:00 10/27/21 08:00 Brivaracetam [Briviact] PO Not Given DAILY@08 [facility] Ondansetron HCl 4 mg 10/26/21 07:37 10/27/21 19:06 Ondansetron 2 Mg/Ml Sdv 2 Ml IVP 4 mg Q6H PRN Administration NAUSEA AND VOMITING Pantoprazole Sodium 40 mg 10/26/21 09:45 10/27/21 09:41 Pantoprazole 40 Mg Sdv IVP 40 mg Q12H LEANDRA Administration Polyethylene Glycol 17 gm 10/27/21 09:00 10/27/21 17:06 Polyethylene Glycol 3350 Pkt 17 Gm PO 17 gm BID LEANDRA Administration Promethazine HCl 25 mg 10/27/21 11:28 10/27/21 13:58 Promethazine 25 Mg/Ml Sdv 1 Ml IM 25 mg Q6H PRN Administration NAUSEA Tizanidine HCl 4 mg 10/27/21 07:22 10/27/21 19:21 Tizanidine 4 Mg Tablet PO 4 mg TID PRN Administration SPASMS PFSH Acute PFSH: Medical History CHF (congestive heart failure) Chronic pain of lower extremity, bilateral Chronic pancreatitis 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 Constipation Constipation Diabetes Epilepsy Essential (primary) hypertension GI bleed Hypertensive urgency Primary osteoarthritis Recurrent vomiting Surgical History History of bilateral knee replacement History of cholecystectomy History of D&C 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 Family History Grandmother Cancer Lung disease Stroke Mother Lung disease Other A-fib CHF (congestive heart failure) Social History Smoking and tobacco status: never smoked Alcohol intake: never Household members: spouse Housing: House Marital status: Current occupational status: disabled History of recent travel: No Vitals/I&O/Wt Last Vital Signs Temp 98.3 F 10/27/21 19:15 Pulse 78 10/27/21 19:45 Resp 22 H 10/27/21 19:45 BP 200/104 10/27/21 20:12 Pulse Ox 98 10/27/21 19:45 10/27/21 10/27/21 10/27/21 06:59 14:59 22:59 Intake Total 360 / 4342.649 720 / 720 120 / 840 Output Total 75 / 1295 200 / 200 1700 / 1900 Balance 285 / 3047.649 520 / 520 -1580 / -1060 Weight last 48 hrs Weight 177 lb 6.4 oz Weight 170 lb Physical Exam Narrative: EXAM NARRATIVE: Follow-up note GENERAL: The patient is alert and oriented times three. Seems to be extremely anxious and unhappy. HEENT: No significant pallor, icterus or lymphadenopathy.Oral cavity: There are no mucous membrane lesions. NECK: Trachea appears to be central. No masses noted. No JVD or thyromegaly appreciated. RESPIRATORY: Chest is symmetrical. No intercostals muscle retraction or any accessory muscle activation. There is no chest wall tenderness. Breath sounds are heard bilaterally. No rales or rhonchi heard. No evidence of any consolidation. BREASTS: Deferred. HEART: The heart sounds are normal. No S3 or S4. Late systolic murmur in the aortic area. No diastolic murmurs. ABDOMEN: No vessel pulsations or distention. No tenderness. No organomegaly appreciated. Bowel sounds are normally heard. : Deferred. RECTAL: Deferred. LYMPHATIC: No lymphadenopathy noted in the neck or groin. EXTREMITIES: No edema or cyanosis. No clubbing. Peripheral pulses are palpated in fairly good volume and amplitude MUSCULOSKELETAL: No acute joint deformities or swelling SKIN: There are no significant rashes or ecchymosis NEUROPSYCHIATRIC: The patient is alert and oriented x3. Appears to be in a good mood. No tremors or rigidity noted. Urinary Catheter Management: Preston: Cath Placed During This Visit: yes Reason for Continuing Indwelling Catheter: Accurate Measurement of Urinary Output in Critically Ill Patients Urinary Catheter Date of Insertion: 10/26/21 Urinary Catheter Time of Insertion: 12:14 Data : 10/28/21 02:31 10/28/21 02:31 Micro: Microbiology 10/26/21 09:20 Blood Culture - Preliminary Blood NEGATIVE TO DATE 10/26/21 07:45 Blood Culture - Preliminary Blood NEGATIVE TO DATE EKG 1: My Interpretation: Sinus rhythm with a poor R wave progression. Diffuse nonspecific ST-T changes. Left axis deviation. Features of LVH. Possible old inferior wall myocardial infarction. EKG computer-generated impression: Chest X-Ray 10/25/21 19:57 IMPRESSION: No acute findings. Head CT 10/25/21 21:16 IMPRESSION: No acute intracranial abnormality. Abdomen/Pelvis CT 10/26/21 02:42 IMPRESSION: 1. No findings to suggest appendicitis. 2. No free air or bowel distention. 3. Small left adrenal nodule, see above. 4. Possible mild urinary bladder wall thickening, see above. 5. Possible fibroid versus fluid in the lower uterine segment. 6. The right ovary contains two dominant follicles versus cyst, measuring 20 and 12 mm in size. Significance unlikely due to relatively small size. Trace amount of cul-de-sac fluid. 7. Other findings discussed above. A&P Assessment and plan (1) Labile hypertension: The etiology is not very clear. Secondary hypertension is a possibility but her presentation is very atypical. As of now we don't have a definite diagnosis. She seems to be intolerant to many medications. Some of the episodes of accelerated hypertension, could be allergic reaction to medications. She seems to be tolerating the carvedilol fairly well. I may try to optimize the dose of the carvedilol Status: Acute (2) Adrenal mass: She may benefit from some functional studies. Endocrinology consult may be appropriate this point. Status: Acute (3) IHSS (idiopathic hypertrophic subaortic stenosis): I'll be reviewing the echocardiogram. Patient had echocardiogram in the beginning of last year. She had a resting gradient of 24 mmHg at the LV outflow tract. She also had some features of IHSS. We will go ahead and do a repeat echocardiogram, to reevaluate the LV function and also the outflow gradient. Status: Acute (4) Hypertensive urgency: Her anxiety/depressive illness could be a contributing factor for the blood pressure fluctuations. Appropriate management of the anxiety/depressive illness would be helpful in this situation. She has a history of diastolic heart failure. I may go ahead and do a BNP, to evaluate for any heart failure. Status: Acute Plan Based on the patient's clinical progress and the results of the above, further recommendations will be made. Thank you for the opportunity to evaluate this patient and make these recommendations Consult Attestations Medical Necessity Statement: Patient requires continued hospital stay for close monitoring and further management Coding Level of Care Code Acute [employer] for Chg Fwd History Detailed Exam Detailed Medical Decision Making High Complexity Diagnoses Labile hypertension R09.89 Adrenal mass E27.8 IHSS (idiopathic hypertrophic subaortic stenosis) I42.1 Hypertensive urgency I16.0
--- NOTE | 2021-10-27 21:26 | PC.NURSE ---
2110: Dr. Brito at bedside.
[2021-10-27] MEDS: nitroglycerin 1 gm/inch oint Pkt 2 INCH TOPICAL (21:37)
--- NOTE | 2021-10-27 23:21 | PC.NURSE ---
Pt believes that her ears are bleeding. Ear examination performed. Small abrasion noted in pt's right ear.
[2021-10-28] VITALS (114 sets, daily range): BP systolic 72–263; BP diastolic 39–119; PULSE 69–100; RESP 12–30; TEMP 36.7–37.5; O2SAT 87–98
--- NOTE | 2021-10-28 00:10 | PC.NURSE ---
Pt no longer has the sensation of bleeding in her ears.
[2021-10-28] MEDS: LORazepam 2 mg/mL INJ 1 mL 0.5 MG IVP ×3 (00:50→20:22)
--- NOTE | 2021-10-28 01:07 | PC.NURSE ---
0100: This nurse was at bedside giving ativan when patient told me I'm having a seizure. I explained that people typically cannot talk during seizures. She informed me that she can. She then told me that she began seeing flashing lights. Pt noted to have unequal pupils with no other focal stroke symptoms. Dr. Kolb notified immediately. This nurse has requested that pt be examined by physician.
--- NOTE | 2021-10-28 01:19 | PC.NURSE ---
Dr. Kolb at bedside to examine patient.
[2021-10-28] MEDS: cloNIDine 0.1 mg Tablet PO ×3 (01:22→16:35)
--- NOTE | 2021-10-28 01:23 | PC.NURSE ---
Pt now resting quietly in bed. She denies seeing any flashing lights. She still complains of generalized pain and headache 8/. Face is symmetrical, sustainability communicator equal, foot press equal, speech clear.
--- NOTE | 2021-10-28 02:09 | PC.NURSE ---
Pt resting quietly in bed with eyes closed.
[2021-10-28] MEDS: nitroglycerin 1 gm/inch oint Pkt 2 INCH TOPICAL ×2 (03:12→08:31)
[2021-10-28] MEDS: tizanidine 4 mg Tablet PO ×3 (03:12→21:55)
[2021-10-28 03:51] LABS: Basophils # 0.1 10^3/uL (0.0-0.1); Basophils % 1.1 %; Eosinophils # 0.1 10^3/uL (0.0-0.8); Eosinophils % 1.4 %; Hematocrit 44.4 % (37.0-47.0); Hemoglobin 14.7 g/dL (11.5-15.3); Lymphocytes # 4.1 10^3/uL (0.8-4.8); Lymphocytes % 43.5 %; Mean Corpuscular HGB Conc 33.1 g/dL (30.0-36.0); Mean Corpuscular Hemoglobin 29.2 pg (28.0-34.0); Mean Corpuscular Volume 88.3 fl (81-99); Mean Platelet Volume 12.6 fL (7.4-10.4); Monocytes % 10.4 %; Neutrophils # 4.05 10^3/uL (1.8-7.7); Neutrophils % 43.4 %; Nucleated Red Blood Cells % 0 %; Platelet Count 197 10^3/cmm (130-400); Red Blood Count 5.03 10^6/uL (4.1-5.3); Red Cell Distribution Width 13.2 % (12.1-15.1); White Blood Count 9.3 10^3/uL (4.0-10.0)
[2021-10-28 04:08] LABS: Alanine Aminotransferase 22 U/L (0-33); Albumin Level 3.8 g/dL (3.5-5.2); Alkaline Phosphatase 98 IU/L (35-105); Blood Urea Nitrogen 6 mg/dL (6-20); Calcium 9.5 mg/dL (8.5-10.5); Carbon Dioxide 20 mmol/L (22-29); Chloride 106 mmol/L (98-107); Glucose 112 mg/dL (65-115); Magnesium 1.8 mg/dL (1.7-2.3); Osmolality Calculated 288 mOsm/kg (285-295); Sodium 140 mmol/L (136-145); Total Bilirubin 0.7 mg/dL (0.15-1.2); Total Protein 6.8 g/dL (6.6-8.7)
[2021-10-28 04:12] LABS: Aspartate Amino Transferase 24 U/L (0-32)
--- NOTE | 2021-10-28 04:54 | PC.NURSE ---
Pt very sleepy, but awakens easily and follows commands. She denies any symptoms of hypotension.
[2021-10-28] MEDS: carvedilol 12.5 mg Tablet PO ×2 (08:30→16:35)
[2021-10-28] MEDS: lipase-protease-amylase Capsule 1 EACH PO ×3 (08:30→16:34)
[2021-10-28] MEDS: morphine ER (12 HR) 15 mg Tablet PO ×2 (08:30→20:22)
[2021-10-28] MEDS: pantoprazole 40 mg SDV IVP ×2 (08:31→21:55)
[2021-10-28] MEDS: metoprolol tartrate 1 mg/1 mL SDV 5 mL 5 MG IVP (09:31)
[2021-10-28] MEDS: enoxaparin 40 mg/0.4 mL Syringe SUBCUT (09:31)
--- NOTE | 2021-10-28 10:33 | PC.CHAP ---
Pastoral Care Encounter/Spiritual Assessment Type of Contact [] Declined candy supervisor visit [] Patient/Family/Request visit [] Outpatient visit [] Follow-up visit [] Physician referral [] Code/Alert [x] Routine visit [] Staff referral [] Actively dying [] Patient sleeping [x] Family support [] [] Out of room [] Palliative care [] [] Receiving care in room [] Pre-surgical visit [] Trauma [] Long length of stay [x] ICU visit [] Other: Relational/Emotional Strength [] Patient feels connected with others/family/visitors/staff [] Distress [] Loneliness/isolation [] Abandonment Spirituality of Patient [] Person of [place] [] Attends Judaism of their [place] [] Believes in Prayer [] Reads Bible or Catholic materials [] There are Spiritual issues to be addressed Director Of Student Affairs Interventions [x] Prayer [xx] Active listening [x] Non-anxious presence [x] Spiritual/emotional support [] Crisis/trauma care [] Spiritual counseling [] Bereavement support [] Provided bereavement packet [] Provided Bible/devotional materials [] Provided toy/stuffed animal, coloring book to patient or family member [] Provided Communion [] Anointing/[place] [] Salvation [x] Completed spiritual assessment [] Other: Impact on Illness or Injury [] Angry [] Fearful [] Anxious [] Often cries [] Exhaustion [] Unable to work [] Unable to attend mormon [] Unable to walk/stand [] Unable to read [] Unable to drive [] Unable to eat/drink [] Unable to sleep [] Unable to be with family [] Patient intubated [] Other: Summary patient not feeling well, and unhappy not knowing what the issues are... we prayed for clarity and quick healing Time spent with patient 10 min
--- NOTE | 2021-10-28 11:34 | P.PN_ITS ---
Subjective Subjective: Interval history: Eleanor reports she feels bad, hurts all over. Wonders what to do with pain. Medications: Reviewed: Yes Vitals/I&O/Wt Last Vital Signs Temp 98.9 F 10/28/21 07:15 Pulse 89 10/28/21 09:00 Resp 17 10/28/21 09:00 BP 261/99 10/28/21 08:45 Pulse Ox 95 10/28/21 09:00 10/27/21 10/28/21 10/28/21 22:59 06:59 14:59 Intake Total 240 / 960 240 / 1200 Output Total 1700 / 1900 850 / 2750 Balance -1460 / -940 -610 / -1550 Weight last 48 hrs Weight 79.742 kg Weight 79.742 kg Weight 80.467 kg Physical Exam Narrative: EXAM NARRATIVE: General: in no acute distress HEENT: normocephalic, atraumatic, pupils equally round, oropharynx clear Neck: supple, no thyromegaly, no lymphadenopathy Cardiovascular: RRR without murmurs Lungs: clear bilaterally, no wheezing Abdomen: soft, nondistended, positive bowel sounds Extremities: no cyanosis, clubbing, or edema. Some excoriations noted on upper extremities. Agree with above Urinary Catheter Management: Preston: Cath Placed During This Visit: yes Reason for Continuing Indwelling Catheter: Accurate Measurement of Urinary Out put in Critically Ill Patients Urinary Catheter Date of Insertion: 10/26/21 Urinary Catheter Time of Insertion: 12:14 Data : 10/28/21 02:31 10/28/21 02:31 Micro: Microbiology 10/26/21 09:20 Blood Culture - Preliminary Blood NEGATIVE TO DATE 10/26/21 07:45 Blood Culture - Preliminary Blood NEGATIVE TO DATE A&P Assessment and plan (1) Hypertensive urgency: Blood pressure is up and down. Placed on clonidine last night Change to metoprolol extended release 50 mg daily. Consider calcium channel blockers Some element of IHSS on echocardiogram, moderate aortic regurgitation We will send 24-hour urine for catecholamines, 5-HIAA, cortisol Status: Acute (2) Abdominal pain: Waxes and wanes. Likely currently overall better. No severe vomiting. Add OxyIR to extended release morphine Status: Acute (3) Fever: No etiology found. Await cultures. Negative to date. Status: Acute (4) Chronic pancreatitis: Home medications restarted Status: Acute Qualifiers: Pancreatitis type: other Qualified Code(s): K86.1 - Other chronic pa ncreatitis (5) Epilepsy: No seizures in the hospital. Home medication restarted Status: Acute Plan Additional A&P Information Multiple other medical problems as outlined in her past medical history. Full code Lovenox for DVT prophylaxis. Attestations Medical Necessity Statement*: Needs continued hospitalization for close follow-up of hypertensive urgency with adjustment of medication. Coding Level of Care Code Acute Tentering Machine Off Bearer for g Fwd Diagnoses Hypertensive urgency I16.0 Abdominal pain R10.9 Fever R50.9 Chronic pancreatitis K86.1 Pancreatitis type: other Epilepsy G40.909
--- NOTE | 2021-10-28 12:00 | PC.NURSE ---
24 hour urine collection started at 1100 on 10/28
--- NOTE | 2021-10-28 12:16 | PC.NURSE ---
Patients BP was elevated this AM and medication was given per orders. Patient is refusing to leave BP cuff on her arm and had placed the BP cuff around ankle. Patient has also requested a muscle relaxer and is aggravated because there is only one tablet instead of two.
[2021-10-28] MEDS: haloperidol inj 5 mg/mL INJ 1 mL IM (12:34)
[2021-10-28] MEDS: oxyCODONE 5 mg IR Tab/Cap PO (15:00)
[2021-10-28] MEDS: ondansetron 2 mg/ML SDV 2 mL 4 MG IVP (16:36)
--- NOTE | 2021-10-28 18:39 | PC.NURSE ---
Patient continues to take blood pressure cuff off. Education provided on the importance of compliance.
--- NOTE | 2021-10-28 20:15 | P.PN_ITS ---
Subjective Subjective: Interval history: Patient had the echocardiogram today. She was found to have a normal LV size ejection fraction. Her resting LV outflow tract gradient was 31 mmHg. It went up to 143 mmHg with Valsalva. She also has mild aortic valve stenosis. She continues to have fluctuating blood pressure. She also seems to have some psychosocial issues playing a role. Vitals/I&O/Wt Last Vital Signs Temp 98.9 F 10/28/21 07:15 Pulse 79 10/28/21 19:46 Resp 30 H 10/28/21 19:46 BP 237/84 10/28/21 19:46 Pulse Ox 97 10/28/21 19:46 10/28/21 10/28/21 10/28/21 06:59 14:59 22:59 Intake Total 240 / 1200 600 / 600 Output Total 850 / 2750 400 / 400 450 / 850 Balance -610 / -1550 -400 / -400 150 / -250 Weight last 48 hrs Weight 175 lb 12.8 oz Weight 175 lb 12.8 oz Weight 177 lb 6.4 oz Physical Exam Narrative: EXAM NARRATIVE: GENERAL: The patient is alert and oriented times three. Seems to be extremely anxious and unhappy. HEENT: No significant pallor, icterus or lymphadenopathy.Oral cavity: There are no mucous membrane lesions. NECK: Trachea appears to be central. No masses noted. No JVD or thyromegaly appreciated. RESPIRATORY: Chest is symmetrical. No intercostals muscle retraction or any accessory muscle activation. There is no chest wall tenderness. Breath sounds are heard bilaterally. No rales or rhonchi heard. No evidence of any consol idation. BREASTS: Deferred. HEART: The heart sounds are normal.? No S3 or S4. Late systolic murmur in the aortic area. No diastolic murmurs. ABDOMEN: No vessel pulsations or distention. No tenderness. No organomegaly appreciated.? Bowel sounds are normally heard. : Deferred. RECTAL: Deferred. LYMPHATIC: No lymphadenopathy noted in the neck or groin. EXTREMITIES: No edema or cyanosis.? Peripheral pulses are palpated in fairly good volume and amplitude MUSCULOSKELETAL: No acute joint deformities or swelling SKIN: There are no significant rashes or ecchymosis NEUROP Urinary Catheter Management: Preston: Cath Placed During This Visit: yes Reason for Continuing Indwelling Catheter: Accurate Measurement of Urinary Output in Critically Ill Patients Urinary Catheter Date of Insertion: 10/26/21 Urinary Catheter Time of Insertion: 12:14 Data : 10/28/21 02:31 10/28/21 02:31 Other Labs: Echocardiogram from yesterday ?Normal left ventricular size and systolic function, EF 64 %. ?Mild left ventricular hypertrophy. No regional wall motion ?abnormalities. Grade I/IV diastolic dysfunction (abnormal ?relaxation filling pattern), normal to mildly elevated filling ?pressures. ?Moderately severe aortic valve regurgitation. ?Features of IHSS with resting gradient of 31 mmHg, going up to ?143 millimeters of mercury with Valsalva ?Mild aortic valve stenosis, mean gradient 17.7 mmHg, PURNIMA 1.6 ?cm squared.? This could be an underestimation because of the IHSS ?Mildly increased left atrial size. ?Mild mitral valve regurgitation. ?Trace tricuspid valve regurgitation.? ?Mild pulmonary hypertension. Estimated pulmonary artery peak ?systolic pressure was 43 mmHg ?There is no pericardial effusion. ?There are no intracardiac masses. ?Compared to the study from 10/20/2020, there is no significant ?change in the resting gradient across the LV outflow tract. A&P Assessment and plan (1) Labile hypertension: In view of the patient's IHSS and aortic regurgitation, we may start her on a long-acting beta-bimal namely Toprol-XL 100 mg daily, starting tomorrow morning. Also consider adding hydralazine along with this. Adequate hydration needs to be maintained Status: Acute (2) IHSS (idiopathic hypertrophic subaortic stenosis): In view of the IHSS and moderately severe AR, patient may benefit from surgical intervention. I will be discussing her case with cardiothoracic surgeon, who has expertise of doing myomectomy along with valve surgery. Status: Acute (3) Hypertensive urgency: Her anxiety/depressive illness could be a contributing factor for the blood pressure fluctuations. Appropriate management of the anxiety/depressive illness would be helpful in this situation. Status: Acute (4) Aortic regurgitation: Patient has at least moderately severe aortic regurgitation. She may benefit from a RUTHIE, to better evaluate the AR. This may be done as an outpatient Status: Acute (5) Adrenal mass: She may benefit from some functional studies. Endocrinology consult may be appropriate this point. Status: Acute Plan Other problems are Adrenal adenoma Congenital hip dysplasia History of clubfoot History of epilepsy History of pancreatitis Attestations Medical Necessity Statement*: Patient requires continued hospital stay for close monitoring and further management Coding Level of Care Code Acute Fiberglass Ski Maker for Chg Fwd History Detailed Exam Detailed Medical Decision Making Moderate Complexity Diagnoses Labile hypertension R09.89 Adrenal mass E27.8 IHSS (idiopathic hypertrophic subaortic stenosis) I42.1 Hypertensive urgency I16.0 Aortic regurgitation I35.1
[2021-10-29] VITALS (40 sets, daily range): BP systolic 87–264; BP diastolic 39–141; PULSE 71–103; RESP 11–25; TEMP 36.8–36.9; O2SAT 90–97; BMI 34.4
[2021-10-29] MEDS: oxyCODONE 5 mg IR Tab/Cap PO (00:37)
[2021-10-29] MEDS: LORazepam 2 mg/mL INJ 1 mL 0.5 MG IVP ×3 (02:38→18:52)
[2021-10-29 03:45] LABS: Basophils # 0.1 10^3/uL (0.0-0.1); Basophils % 0.9 %; Eosinophils # 0.1 10^3/uL (0.0-0.8); Hematocrit 43.1 % (37.0-47.0); Hemoglobin 13.9 g/dL (11.5-15.3); Lymphocytes # 5.4 10^3/uL (0.8-4.8); Lymphocytes % 48.5 %; Mean Corpuscular HGB Conc 32.3 g/dL (30.0-36.0); Mean Corpuscular Volume 89.8 fl (81-99); Mean Platelet Volume 12.5 fL (7.4-10.4); Monocytes # 1.4 10^3/uL (0.2-0.9); Monocytes % 12.6 %; Neutrophils # 4.07 10^3/uL (1.8-7.7); Neutrophils % 36.7 %; Nucleated Red Blood Cells % 0 %; Platelet Count 211 10^3/cmm (130-400); Red Cell Distribution Width 13.2 % (12.1-15.1); White Blood Count 11.1 10^3/uL (4.0-10.0)
[2021-10-29 04:16] LABS: Slide Review Slide Review Perform
[2021-10-29 04:37] LABS: Anion Gap 18.7 (5-19); Blood Urea Nitrogen 5 mg/dL (6-20); Calcium 9.5 mg/dL (8.5-10.5); Carbon Dioxide 20 mmol/L (22-29); Chloride 105 mmol/L (98-107); Glucose 80 mg/dL (65-115); Osmolality Calculated 286 mOsm/kg (285-295); Potassium 3.7 mmol/L (3.5-5.1); Sodium 140 mmol/L (136-145)
[2021-10-29] MEDS: tizanidine 4 mg Tablet PO ×3 (05:36→20:03)
[2021-10-29] MEDS: lipase-protease-amylase Capsule 1 EACH PO ×3 (07:59→20:03)
[2021-10-29] MEDS: OLANZapine 5 mg TABLET PO ×2 (08:00→20:02)
[2021-10-29] MEDS: metoprolol succinate ER (24 HR) 100 mg Tablet PO (08:00)
[2021-10-29] MEDS: polyethylene glycol 3350 Pkt 17 gm PO ×2 (08:01→20:04)
[2021-10-29] MEDS: ondansetron 2 mg/ML SDV 2 mL 4 MG IVP ×2 (08:46→18:47)
[2021-10-29] MEDS: morphine ER (12 HR) 30 mg tablet PO ×2 (08:47→20:03)
[2021-10-29] MEDS: enoxaparin 40 mg/0.4 mL Syringe SUBCUT (10:16)
[2021-10-29] MEDS: pantoprazole 40 mg SDV IVP (10:16)
--- NOTE | 2021-10-29 10:36 | P.PN_ITS ---
Subjective Subjective: Interval history: Eleanor reports she is doing okay. Still frustrated with the blood pressure going up and down. I discussed with her the plan of adding Toprol today. Medications: Reviewed: Yes Vitals/I&O/Wt Last Vital Signs Temp 98.1 F 10/28/21 20:16 Pulse 78 10/29/21 06:30 Resp 15 10/29/21 08:47 BP 196/105 10/29/21 06:30 Pulse Ox 96 10/29/21 08:47 10/28/21 10/29/21 10/29/21 22:59 06:59 14:59 Intake Total 840 / 840 600 / 1440 Output Total 800 / 1200 550 / 1750 Balance 40 / -360 50 / -310 Weight last 48 hrs Weight 79.878 kg Weight 79.742 kg Weight 79.742 kg Physical Exam Narrative: EXAM NARRATIVE: General: in no acute distress Neck: supple, no thyromegaly, no lymphadenopathy Cardiovascular: RRR with 2/6 systolic murmur Lungs: clear bilaterally, no wheezing Abdomen: soft, nondistended, positive bowel sounds Extremities: no cyanosis, clubbing, or edema. Urinary Catheter Management: Preston: Cath Placed During This Visit: yes Reason for Continuing Indwelling Catheter: Accurate Measurement of Urinary Output in Critically Ill Patients Urinary Catheter Date of Insertion: 10/26/21 Urinary Catheter Time of Insertion: 12:14 Data : 10/29/21 02:57 10/29/21 02:57 A&P Assessment and plan (1) Hypertensive urgency: Blood pressure is up and down. Continue clonidine Continue Toprol-XL 100 mg daily Consider calcium channel blockers Some element of IHSS on echocardiogram, moderate aortic regurgitation Sending 24-hour urine for catecholamines, 5-HIAA, cortisol Status: Acute (2) Abdominal pain: Waxes and wanes. Likely currently overall better. No severe vomiting. Increased to her baseline morphine amount. Discontinue OxyIR. Continue Ativan as needed. Status: Acute (3) Fever: No etiology found. Cultures negative. No further fevers Status: Acute (4) Chronic pancreatitis: Home medications restarted Status: Acute Qualifiers: Pancreatitis type: other Qualified Code(s): K86.1 - Other chronic pancreatitis (5) Epilepsy: No seizures in the hospital. Home medication restarted Status: Acute Plan Additional A&P Information Significant depression, and emotional distress. Zyprexa 5 mg twice daily started. Multiple other medical problems as outlined in her past medical history. Full code Lovenox for DVT prophylaxis. Attestations Medical Necessity Statement*: Needs continued hospitalization for adjustment of medication secondary to hypertensive urgency. Coding Level of Care Code Acute Loan Review Manager for g Fwd Diagnoses Hypertensive urgency I16.0 Abdominal pain R10.9 Fever R50.9 Chronic pancreatitis K86.1 Pancreatitis type: other Epilepsy G40.909
[2021-10-29 12:14] LABS: Urine Creatinine 43 mg/dL (28-217)
[2021-10-29 12:51] LABS: Creatinine 24 Hour Urine 752.5 mg/dL (601-1689); Total Volume Urine 1750 ml
[2021-10-29] MEDS: amlodipine 5 mg Tablet PO (12:58)
[2021-10-29] MEDS: promethazine 25 mg/mL SDV 1 mL IM (12:59)
--- NOTE | 2021-10-29 15:41 | PC.SOCIAL ---
IMM update IMM updated with patient. Verbalized an understanding. Copy Pg 2 provided. Initialled, dated, timed, and placed in chart.
--- NOTE | 2021-10-29 19:58 | PC.NURSE ---
Shift Note Frequent safety and comfort rounds continue. Orders and/or nursing care completed as indicated. Patient monitored for response to intervention and treatment(s). Education provided regarding medications. Will continue to monitor. Patient with nausea noted with food throughout the day. Amlodipine added to regimen for BP control with little response. Pt remains very anxious requiring ativan and scheduled zyprexa. 24 hour urine sent off after collection. pt assisted up to the bedside commode with minimal assistance.
[2021-10-29] MEDS: nystatin powder 15 gm Btl 1 APPLIC TOPICAL (20:03)
--- NOTE | 2021-10-29 20:07 | P.PN_ITS ---
Subjective Subjective: Interval history: Patient still has highly fluctuating blood pressure. Complains of headache and chest tightness, with the blood pressure elevation. Systolic blood pressure may go up to 250. The blood pressure seems to be dropping into the normal range while she is sleeping. Work-up to look for other secondary causes of hypertension is in progress Medications: Medication Review Details: Current Medications Acetaminophen (Acetaminophen 325 Mg Tablet) 650 mg PO Q6H PRN PRN Reason: MILD PAIN Last Admin: 10/27/21 22:51 Dose: 650 mg Documented by: Amlodipine Besylate (Amlodipine 5 Mg Tablet) 5 mg PO DAILY [facility] Last Admin: 10/29/21 12:58 Dose: 5 mg Documented by: Lipase/Protease/Amylase (Cgpoxl-Wmrygpyq-Zeimrzm Capsule) 1 each PO TIDWM [facility] Last Admin: 10/29/21 20:03 Dose: 1 each Documented by: Enoxaparin Sodium (Enoxaparin 40 Mg/0.4 Ml Syringe) 40 mg SUBCUT Q24H [facility] Last Admin: 10/29/21 10:16 Dose: 40 mg Documented by: Lorazepam (Lorazepam 2 Mg/Ml Inj 1 Ml) 0.5 mg IVP Q6H PRN PRN Reason: ANXIETY Last Admin: 10/29/21 18:52 Dose: 0.5 mg Documented by: Metoprolol Succinate (Metoprolol Succinate Er (24 Hr) 100 Mg Tablet) 200 mg PO DAILY [facility] Metoprolol Succinate (Metoprolol Succinate Er (24 Hr) 100 Mg Tablet) 100 mg PO ONCE [facility] Morphine Sulfate (Morphine Er (12 Hr) 30 Mg Tablet) 30 mg PO BID@0900,2100 [facility] Last Admin: 10/29/21 20:03 Dose: 30 mg Documented by: Non-Formulary Medication (Brivaracetam [Briviact]) 25 mg PO DAILY@08 [facility] Last Admin: 10/29/21 08:00 Dose: Not Given Documented by: Nystatin (Nystatin Powder 15 Gm Btl) 1 applic TOPICAL BID [facility] Last Admin: 10/29/21 20:03 Dose: 1 packet Documented by: Olanzapine (Olanzapine 5 Mg Tablet) 5 mg PO BID [facility] Last Admin: 10/29/21 20:02 Dose: 5 mg Documented by: Ondansetron HCl (Ondansetron 2 Mg/Ml Sdv 2 Ml) 4 mg IVP Q6H PRN PRN Reason: NAUSEA AND VOMITING Last Admin: 10/29/21 18:47 Dose: 4 mg Documented by: Pantoprazole Sodium (Pantoprazole 40 Mg Sdv) 40 mg IVP Q12H [facility] Last Admin: 10/29/21 10:16 Dose: 40 mg Documented by: Polyethylene Glycol (Polyethylene Glycol 3350 Pkt 17 Gm) 17 gm PO BID [facility] Last Admin: 10/29/21 20:04 Dose: 17 gm Documented by: Promethazine HCl (Promethazine 25 Mg/Ml Sdv 1 Ml) 25 mg IM Q6H PRN PRN Reason: NAUSEA Last Admin: 10/29/21 12:59 Dose: 25 mg Documented by: Tizanidine HCl (Tizanidine 4 Mg Tablet) 4 mg PO TID PRN PRN Reason: SPASMS Last Admin: 10/29/21 20:03 Dose: 4 mg Documented by: Vitals/I&O/Wt Last Vital Signs Temp 98.2 F 10/29/21 08:00 Pulse 84 10/29/21 16:00 Resp 17 10/29/21 20:03 BP 186/86 10/29/21 16:00 Pulse Ox 96 10/29/21 20:03 10/29/21 10/29/21 10/29/21 06:59 14:59 22:59 Intake Total 600 / 1440 340 / 340 Output Total 550 / 1750 450 / 450 250 / 700 Balance 50 / -310 -110 / -110 -250 / -360 Weight last 48 hrs Weight 176 lb 1.6 oz Weight 175 lb 12.8 oz Weight 175 lb 12.8 oz Physical Exam Narrative: EXAM NARRATIVE: GENERAL: The patient is alert and oriented times three. Still very anxious HEENT: No significant pallor, icterus or lymphadenopathy.Oral cavity: There are no mucous membrane lesions. NECK: Trachea appears to be central. No masses noted. No JVD or thyromegaly appreciated. RESPIRATORY: Chest is symmetrical. No intercostals muscle retraction or any accessory muscle activation. There is no chest wall tenderness. Breath sounds are heard bilaterally. No rales or rhonchi heard. No evidence of any consolidation. BREASTS: Deferred. HEART: The heart sounds are normal.? No S3 or S4. Late systolic murmur in the aortic area. Early diastolic murmur of grade 3 or 6 in the second aortic area ABDOMEN: No vessel pulsations or distention. No tenderness. No organomegaly appreciated.? Bowel sounds are normally heard. : Deferred. RECTAL: Deferred. LYMPHATIC: No lymphadenopathy noted in the neck or groin. EXTREMITIES: No edema or cyanosis.? Peripheral pulses are palpated in fairly good volume and amplitude MUSCULOSKELETAL: No acute joint deformities or swelling SKIN: There are no significant rashes or ecchymosis Urinary Catheter Management: Preston: Cath Placed During This Visit: yes Reason for Continuing Indwelling Catheter: Accurate Measurement of Urinary Output in Critically Ill Patients Urinary Catheter Date of Insertion: 10/26/21 Urinary Catheter Time of Insertion: 12:14 Data : 10/29/21 02:57 10/29/21 02:57 Other Labs: Laboratory Last Values WBC 11.1 10^3/uL (4.0-10.0) H 10/29/21 02:57 RBC 4.80 10^6/uL (4.1-5.3) 10/29/21 02:57 Hgb 13.9 g/dL (11.5-15.3) 10/29/21 02:57 Hct 43.1 % (37.0-47.0) 10/29/21 02:57 MCV 89.8 fl (81-99) 10/29/21 02:57 MCH 29.0 pg (28.0-34.0) 10/29/21 02:57 MCHC 32.3 g/dL (30.0-36.0) 10/29/21 02:57 RDW 13.2 % (12.1-15.1) 10/29/21 02:57 Plt Count 211 10^3/cmm (130-400) 10/29/21 02:57 MPV 12.5 fL (7.4-10.4) H 10/29/21 02:57 Neut % (Auto) 36.7 % 10/29/21 02:57 Lymph % (Auto) 48.5 % 10/29/21 02:57 [place] % (Auto) 12.6 % 10/29/21 02:57 Eos % (Auto) 1.0 % 10/29/21 02:57 Baso % (Auto) 0.9 % 10/29/21 02:57 Neut # (Auto) 4.07 10^3/uL (1.8-7.7) 10/29/21 02:57 Lymph # (Auto) 5.4 10^3/uL (0.8-4.8) H 10/29/21 02:57 [place] # (Auto) 1.4 10^3/uL (0.2-0.9) H 10/29/21 02:57 Eos # (Auto) 0.1 10^3/uL (0.0-0.8) 10/29/21 02:57 Baso # (Auto) 0.1 10^3/uL (0.0-0.1) 10/29/21 02:57 Nucleated RBC % (auto) 0 % 10/29/21 02:57 Nucleated RBCs # 0.0 /100WBC 10/29/21 02:57 Sodium 140 mmol/L (136-145) 10/29/21 02:57 Potassium 3.7 mmol/L (3.5-5.1) 10/29/21 02:57 Chloride 105 mmol/L (98-107) 10/29/21 02:57 Carbon Dioxide 20 mmol/L (22-29) L 10/29/21 02:57 Anion Gap 18.7 (5-19) 10/29/21 02:57 BUN 5 mg/dL (6-20) L 10/29/21 02:57 Creatinine 0.5 mg/dL (0.5-0.9) 10/29/21 02:57 GFR Calculation 136.0 mL/min (90-130) H 10/29/21 02:57 Glucose 80 mg/dL (65-115) 10/29/21 02:57 POC Glucose 91 mg/dL (70-110) 10/26/21 04:33 Calculated Osmolality 286 mOsm/kg (285-295) 10/29/21 02:57 Calcium 9.5 mg/dL (8.5-10.5) 10/29/21 02:57 Magnesium 1.8 mg/dL (1.7-2.3) 10/28/21 02:31 Total Bilirubin 0.7 mg/dL (0.15-1.2) 10/28/21 02:31 AST 24 U/L (0-32) 10/28/21 02:31 ALT 22 U/L (0-33) 10/28/21 02:31 Alkaline Phosphatase 98 IU/L (35-105) 10/28/21 02:31 Creatine Kinase 46 U/L (26-192) 10/26/21 05:00 Troponin T Baseline 9 ng/L (0-10) 10/26/21 05:00 Troponin T 120 Minute 9.68 ng/L (0-10) 10/26/21 07:45 Delta Troponin T 0.68 ABS# (0-10) 10/26/21 07:45 Troponin T Hi Sens 6Hr 10.81 ng/L (0-10) H 10/26/21 11:14 Troponin T Hi Sens 6Hr Delta 1.81 ng/L (0-12) 10/26/21 11:14 Total Protein 6.8 g/dL (6.6-8.7) 10/28/21 02:31 Albumin 3.8 g/dL (3.5-5.2) 10/28/21 02:31 Globulin 3.0 g/dL (1.3-4.6) 10/28/21 02:31 Lipase 43 U/L (13-60) 10/26/21 11:14 TSH 1.06 uIU/mL (0.27-4.20) 10/27/21 04:35 Free T4 1.30 ng/dL (0.82-1.77) 10/27/21 04:35 Free T3 1.9 PG/ML (2.0-4.4) L 10/27/21 04:35 Urine Color Yellow (Yellow) 10/26/21 02:08 Urine Appearance Clear (CLEAR) 10/26/21 02:08 Urine pH 5 (5-7) 10/26/21 02:08 Ur Specific [place] 1.020 (1.005-1.030) 10/26/21 02:08 Urine Protein Neg (Negative) 10/26/21 02:08 Urine Glucose (UA) Norm (Normal) 10/26/21 02:08 Urine Ketones 2+ (Negative) H 10/26/21 02:08 Urine Blood Neg (Negative) 10/26/21 02:08 Urine Nitrate Negative (Negative) 10/26/21 02:08 Urine Bilirubin Neg (Negative) 10/26/21 02:08 Urine Urobilinogen 1 mg/dL (Negative) H 10/26/21 02:08 Ur Leukocyte Esterase Negative (Negative) 10/26/21 02:08 Urine Total Volume 1750 ml 10/28/21 11:00 Urine Creatinine 43 mg/dL (28-217) 10/28/21 11:00 Ur Creatinine 24 Hour 752.5 mg/dL (601-1689) 10/28/21 11:00 Coronavirus 229E (PCR) Not detected (NOT DETECT) 10/26/21 09:40 SARS-CoV-2 (PCR) Not detected (NOT DETECT) 10/26/21 09:40 A&P Assessment and plan (1) Labile hypertension: The dose of the metoprolol succinate may be increased to 200 mg p.o. daily from tomorrow onwards. She was given extra dose of 100 mg this evening. Also may go up on amlodipine to 10 mg daily. If she needed a third drug, I would add hydralazine. Status: Acute (2) IHSS (idiopathic hypertrophic subaortic stenosis): In view of the IHSS and moderately severe AR, patient may benefit from surgical intervention. Once her blood pressure gets under control, we may schedule her for a RUTHIE to better evaluate the aortic valve. Status: Acute (3) Hypertensive urgency: Her anxiety/depressive illness could be a contributing factor for the blood pressure fluctuations. Appropriate management of the anxiety/depressive illness would be helpful in this situation. Status: Acute (4) Aortic regurgitation: Patient has at least moderately severe aortic regurgitation. She may benefit from a RUTHIE, to better evaluate the AR. This may be done as an outpatient Status: Acute (5) Adrenal mass: She may benefit from some functional studies. Endocrinology consult may be appropriate this point. Status: Acute Plan Other problems are Adrenal adenoma Congenital hip dysplasia History of clubfoot History of epilepsy History of pancreatitis Based on the patient's clinical progress, further recommendations will be made Attestations Medical Necessity Statement*: Patient requires continued hospital stay for close monitoring Coding Level of Care Code Acute Riding Teacher for Chg Fwd History Detailed Exam Detailed Medical Decision Making Moderate Complexity Diagnoses Labile hypertension R09.89 IHSS (idiopathic hypertrophic subaortic stenosis) I42.1 Hypertensive urgency I16.0 Aortic regurgitation I35.1 Adrenal mass E27.8
[2021-10-30] VITALS (42 sets, daily range): BP systolic 83–272; BP diastolic 41–120; PULSE 69–94; RESP 7–26; TEMP 36.9; O2SAT 89–98; BMI 34.6
[2021-10-30] MEDS: LORazepam 2 mg/mL INJ 1 mL 0.5 MG IVP ×4 (02:05→20:47)
[2021-10-30 06:00] LABS: Blood Urea Nitrogen 9 mg/dL (6-20); Calcium 8.8 mg/dL (8.5-10.5); Carbon Dioxide 24 mmol/L (22-29); Chloride 103 mmol/L (98-107); Creatinine Clr Calc Pharmacy 86.9065; Glucose 96 mg/dL (65-115); Osmolality Calculated 287 mOsm/kg (285-295); Sodium 139 mmol/L (136-145)
[2021-10-30 06:01] LABS: Anion Gap 15.9 (5-19); Potassium 3.9 mmol/L (3.5-5.1)
--- NOTE | 2021-10-30 07:15 | USCV_ITS ---
Obie Eleanor Age: 41 Gender: F : 1980 Exam Date: 10/30/2021 08:13 Ordering Phys: Richard Sequeira MD Technologist: Exam Location: [facility] [place]_ Indication: HTN Aortic Velocity @ SMA (cm/s) 97 RIGHT KIDNEY LEFT KIDNEY Velocity (cm/s) Velocity (cm/s) Sys/Ricardo Sys/Ricardo Resistive Index Resistive Index 101.6 / 25.6 0.75 Proximal Renal Artery 101.5 / 24.9 0.73 96.8 / 24.8 0.74 Mid Renal Artery 105.7 / 18.3 0.83 98.4 / 24.0 0.76 Distal Renal Artery 118.6 / 24.8 0.79 97.6 / 18.4 0.81 Hilar 156.0 / 21.5 0.86 82.4 / 20.8 0.75 Upper Pole 109.2 / 18.2 0.83 68.0 / 11.2 0.84 Mid Pole 119.6 / 26.7 0.78 73.6 / 12.0 0.84 Lower Pole 113.3 / 16.5 0.85 1.00 Renal Aortic Ratio 1.37 Accleration Index (cm/sec2) 2473.0 Hilar 3479.0 0 0 1673.0 Upper Pole 1655.0 0 0 857.00 Mid Pole 2546.0 0 945.00 Lower Pole 2198.0 0 107.8 Kidney Length (mm) 10.1 CONCLUSIONS Normal color flow Doppler, peak systolic velocities, Renal/Aortic peak systolic velocity ratio and resistive indices noted in bilateral main, segmental and interlobar renal arteries. RIght Kidney measures 10.7cm Left Kidney measures 10.1cmlimited duplex Doppler ultrasound was performed on bilateral renal artery circulation. Brian Brody MD (Electronically Signed) Final Date: 30 October 2021 11:11 S
[2021-10-30] MEDS: lipase-protease-amylase Capsule 1 EACH PO ×3 (08:13→18:07)
[2021-10-30] MEDS: metoprolol succinate ER (24 HR) 100 mg Tablet 200 MG PO (08:13)
[2021-10-30] MEDS: spironolactone 25 mg Tablet PO (08:13)
[2021-10-30] MEDS: amlodipine 5 mg Tablet PO ×2 (08:13→14:23)
[2021-10-30] MEDS: morphine ER (12 HR) 30 mg tablet PO ×2 (08:13→20:48)
[2021-10-30] MEDS: OLANZapine 5 mg TABLET PO ×2 (08:13→18:07)
[2021-10-30] MEDS: pantoprazole 40 mg SDV IVP ×2 (08:14→20:48)
[2021-10-30] MEDS: polyethylene glycol 3350 Pkt 17 gm PO ×2 (08:20→18:07)
[2021-10-30] MEDS: nystatin powder 15 gm Btl 1 APPLIC TOPICAL ×2 (08:22→20:49)
--- NOTE | 2021-10-30 08:52 | PC.NURSE ---
Pt's states he forgot her home med--Briviact. States he will go home this afternoon and get medication.
[2021-10-30 08:53] LABS: Glucose Point of Care 127 mg/dL (70-110)
[2021-10-30] MEDS: tizanidine 4 mg Tablet PO ×3 (09:04→21:38)
[2021-10-30] MEDS: ondansetron 2 mg/ML SDV 2 mL 4 MG IVP ×2 (09:04→18:36)
--- NOTE | 2021-10-30 10:05 | PM.PN ---
Subjective Subjective: Interval history: Reports she still feels pretty rough. Has not been out of bed much. States her head hurts when her blood pressure gets high, and she has some nausea. Medications: Reviewed: Yes Vitals/I&O/Wt Last Vital Signs Temp 98.5 F 10/29/21 22:00 Pulse 94 10/30/21 06:00 Resp 13 10/30/21 08:13 BP 227/120 10/30/21 06:00 Pulse Ox 95 10/30/21 08:13 10/29/21 10/30/21 10/30/21 22:59 06:59 14:59 Intake Total 320 / 660 480 / 1140 Output Total 250 / 700 400 / 1100 Balance 70 / -40 80 / 40 Weight last 48 hrs Weight 80.467 kg Weight 79.878 kg Physical Exam Narrative: EXAM NARRATIVE: General: in no acute distress Neck: supple, no thyromegaly, no lymphadenopathy Cardiovascular: RRR with 2/6 systolic murmur Lungs: clear bilaterally, no wheezing Abdomen: soft, nondistended, positive bowel sounds Extremities: no cyanosis, clubbing, or edema. Urinary Catheter Management: Preston: Cath Placed During This Visit: yes Reason for Continuing Indwelling Catheter: Accurate Measurement of Urinary Output in Critically Ill Patients Urinary Catheter Date of Insertion: 10/26/21 Urinary Catheter Time of Insertion: 12:14 Data : 10/29/21 02:57 10/30/21 04:47 A&P Assessment and plan (1) Hypertensive urgency: Blood pressure is up and down. Continue Norvasc, Toprol. Consider increasing Norvasc to 10 mg if not well controlled. Continue Toprol-XL 100 mg daily May need addition of hydralazine Appreciate cardiology consultation Add Aldactone 25 mg in the morning Some element of IHSS on echocardiogram, moderate aortic regurgitation Sending 24-hour urine for catecholamines, 5-HIAA, cortisol Renin, aldosterone levels were drawn on blood in lab. Renal artery duplex No need for laboratory tomorrow. Could recheck on Tuesday. Status: Acute (2) Abdominal pain: Waxes and wanes. Likely currently overall better. No severe vomiting. Increased to her baseline morphine amount. Continue Ativan as needed. Status: Acute (3) Fever: No etiology found. Cultures negative. No further fevers Status: Acute (4) Chronic pancreatitis: Home medications restarted Status: Acute Qualifiers: Pancreatitis type: other Qualified Code(s): K86.1 - Other chronic pancreatitis (5) Epilepsy: No seizures in the hospital. Home medication restarted Status: Acute Plan Additional A&P Information Significant depression, and emotional distress. Zyprexa 5 mg twice daily started. Multiple other medical problems as outlined in her past medical history. Full code Lovenox for DVT prophylaxis. Attestations Medical Necessity Statement*: Needs continued hospitalization for adjustment of medication secondary to hypertension, hypertensive urgency. Coding Level of Care Code Acute Still Photographer for [facility] Fwd Diagnoses Hypertensive urgency I16.0 Abdominal pain R10.9 Fever R50.9 Chronic pancreatitis K86.1 Pancreatitis type: other Epilepsy G40.909
[2021-10-30] MEDS: enoxaparin 40 mg/0.4 mL Syringe SUBCUT (12:07)
--- NOTE | 2021-10-30 19:00 | PM.PN ---
Subjective Subjective: Interval history: Continues to have labile blood pressure when she is sleeping it is on the lower side when awake it can tends to rise with fluctuation. Medications: Reviewed: Yes Medication Review Details: Current Medications Acetaminophen (Acetaminophen 325 Mg Tablet) 650 mg PO Q6H PRN PRN Reason: MILD PAIN Last Admin: 10/27/21 22:51 Dose: 650 mg Documented by: Amlodipine Besylate (Amlodipine 5 Mg Tablet) 5 mg PO DAILY [facility] Last Admin: 10/29/21 12:58 Dose: 5 mg Documented by: Lipase/Protease/Amylase (Bjncvy-Cfaaotdo-Hchzkju Capsule) 1 each PO TIDWM [facility] Last Admin: 10/29/21 20:03 Dose: 1 each Documented by: Enoxaparin Sodium (Enoxaparin 40 Mg/0.4 Ml Syringe) 40 mg SUBCUT Q24H [facility] Last Admin: 10/29/21 10:16 Dose: 40 mg Documented by: Lorazepam (Lorazepam 2 Mg/Ml Inj 1 Ml) 0.5 mg IVP Q6H PRN PRN Reason: ANXIETY Last Admin: 10/29/21 18:52 Dose: 0.5 mg Documented by: Metoprolol Succinate (Metoprolol Succinate Er (24 Hr) 100 Mg Tablet) 200 mg PO DAILY [facility] Metoprolol Succinate (Metoprolol Succinate Er (24 Hr) 100 Mg Tablet) 100 mg PO ONCE [facility] Morphine Sulfate (Morphine Er (12 Hr) 30 Mg Tablet) 30 mg PO BID@0900,2100 [facility] Last Admin: 10/29/21 20:03 Dose: 30 mg Documented by: Non-Formulary Medication (Brivaracetam [Briviact]) 25 mg PO DAILY@08 [facility] Last Admin: 10/29/21 08:00 Dose: Not Given Documented by: Nystatin (Nystatin Powder 15 Gm Btl) 1 applic TOPICAL BID [facility] Last Admin: 10/29/21 20:03 Dose: 1 packet Documented by: Olanzapine (Olanzapine 5 Mg Tablet) 5 mg PO BID [facility] Last Admin: 10/29/21 20:02 Dose: 5 mg Documented by: Ondansetron HCl (Ondansetron 2 Mg/Ml Sdv 2 Ml) 4 mg IVP Q6H PRN PRN Reason: NAUSEA AND VOMITING Last Admin: 10/29/21 18:47 Dose: 4 mg Documented by: Pantoprazole Sodium (Pantoprazole 40 Mg Sdv) 40 mg IVP Q12H LEANDRA Last Admin: 10/29/21 10:16 Dose: 40 mg Documented by: Polyethylene Glycol (Polyethylene Glycol 3350 Pkt 17 Gm) 17 gm PO BID LEANDRA Last Admin: 10/29/21 20:04 Dose: 17 gm Documented by: Promethazine HCl (Promethazine 25 Mg/Ml Sdv 1 Ml) 25 mg IM Q6H PRN PRN Reason: NAUSEA Last Admin: 10/29/21 12:59 Dose: 25 mg Documented by: Tizanidine HCl (Tizanidine 4 Mg Tablet) 4 mg PO TID PRN PRN Reason: SPASMS Last Admin: 10/29/21 20:03 Dose: 4 mg Documented by: Vitals/I&O/Wt Last Vital Signs Temp 98.5 F 10/29/21 22:00 Pulse 72 10/30/21 16:00 Resp 18 10/30/21 16:00 BP 83/42 10/30/21 16:00 Pulse Ox 94 10/30/21 12:00 10/30/21 10/30/21 10/30/21 06:59 14:59 22:59 Intake Total 480 / 1140 480 / 480 Output Total 400 / 1100 Balance 80 / 40 480 / 480 Weight last 48 hrs Weight 177 lb 6.4 oz Weight 176 lb 1.6 oz Physical Exam Chest: OTHER: GENERAL: Patient is alert, awake and oriented x3. NECK: No jugular vein distension. HEENT: No cyanosis. No icterus. No pallor. HEART: Regular S1 and S2. No murmur, rub or gallop. LUNGS: Clear to auscultate bilaterally. ABDOMEN: Soft, nontender and nondistended. Positive bowel sounds. No guarding, rebound or tenderness. CENTRAL NERVOUS SYSTEM: Grossly nonfocal. EXTREMITIES: Lower extremities without edema bilaterally. Urinary Catheter Management: Preston: Cath Placed During This Visit: yes Reason for Continuing Indwelling Catheter: Accurate Measurement of Urinary Output in Critically Ill Patients Urinary Catheter Date of Insertion: 10/26/21 Urinary Catheter Time of Insertion: 12:14 Data : 10/29/21 02:57 10/30/21 04:47 A&P Assessment and plan (1) Labile hypertension: Continue to monitor closely continue to optimize medicine. Secondary cause of hypertension is being sorted out. Status: Acute (2) IHSS (idiopathic hypertrophic subaortic stenosis): Once controlled blood pressure and further plan will be advised as per Dr. Brito's note Status: Acute (3) Hypertensive urgency: Continue as per protocol. May ask for serum adrenaline VMA urine to rule out pheochromocytoma Status: Acute (4) Aortic regurgitation: Patient has at least moderately severe aortic regurgitation. She may benefit from a RUTHIE, to better evaluate the AR. This may be done as an outpatient Status: Acute (5) Adrenal mass: She may benefit from some functional studies. Endocrinology consult may be appropriate this point. Status: Acute Plan Other problems are Adrenal adenoma Congenital hip dysplasia History of clubfoot History of epilepsy History of pancreatitis Based on the patient's clinical progress, further recommendations will be made Attestations Medical Necessity Statement*: Patient require continuation hospitalization for above defined care Coding Level of Care Code Established Pt Acute Hooker Laster for [facility] Fwd Patient Type Established History Detailed Exam Detailed Medical Decision Making Moderate Complexity Diagnoses Labile hypertension R09.89 IHSS (idiopathic hypertrophic subaortic stenosis) I42.1 Hypertensive urgency I16.0 Aortic regurgitation I35.1 Adrenal mass E27.8
--- NOTE | 2021-10-30 19:07 | PC.NURSE ---
BLOOD PRESSURE Patient requesting manual blood pressures due to arm pain with automatic cuff. Manual blood pressure at 1905 176/84.
[2021-10-30] MEDS: labetalol 5 mg/mL SDV 20mL 10 MG IVP (20:00)
[2021-10-31] VITALS (27 sets, daily range): BP systolic 77–186; BP diastolic 34–89; PULSE 68–94; RESP 13–28; TEMP 36.5; O2SAT 94–99
[2021-10-31] MEDS: LORazepam 2 mg/mL INJ 1 mL 0.5 MG IVP ×4 (02:50→21:29)
[2021-10-31] MEDS: tizanidine 4 mg Tablet PO ×3 (05:57→21:30)
[2021-10-31] MEDS: labetalol 5 mg/mL SDV 20mL 10 MG IVP ×2 (06:06→13:06)
--- NOTE | 2021-10-31 06:38 | PC.NURSE ---
SHIFT SUMMARY Patient had eventful shift with blood pressure fluctuations. New order for labetalol 10 mg IVP given twice. Ativan given Q6H per patient request for anxiety. Zofran given once for nausea and vomiting around 1830. Patient is voiding well in BSC and did have one bowel movement. Patient unsteady on her feet and complains of headache and dizziness when getting up. Nurse at bedside to assist for each void. Patient has been afebrile.
[2021-10-31] MEDS: lipase-protease-amylase Capsule 1 EACH PO ×3 (08:22→19:54)
[2021-10-31] MEDS: OLANZapine 5 mg TABLET PO ×2 (08:22→19:54)
[2021-10-31] MEDS: morphine ER (12 HR) 30 mg tablet PO ×2 (08:22→21:12)
[2021-10-31] MEDS: polyethylene glycol 3350 Pkt 17 gm PO (08:24)
[2021-10-31] MEDS: ondansetron 2 mg/ML SDV 2 mL 4 MG IVP (08:26)
--- NOTE | 2021-10-31 08:45 | P.PN_ITS ---
Subjective Subjective: Interval history: She says she feels a little bit rough this morning, but she appears to be in no distress. She says when she gets up and about her blood pressure goes up. She sitting in bed comfortably. Medications: Reviewed: Yes Vitals/I&O/Wt Last Vital Signs Temp 98.5 F 10/30/21 20:00 Pulse 72 10/31/21 06:00 Resp 14 10/31/21 08:22 BP 186/87 10/31/21 04:31 Pulse Ox 96 10/31/21 08:22 10/30/21 10/31/21 10/31/21 22:59 06:59 14:59 Intake Total 240 / 720 240 / 960 Balance 240 / 720 240 / 960 Weight last 48 hrs Weight 177 lb 6.4 oz Physical Exam Neck/C-Spine: COMMON NORMALS: no JVD Cardio: COMMON NORMALS: no JVD, regular rate, regular rhythm, S1 normal heart sound present, S2 normal heart sound present, No gallops present (Cardio), No clicks present (Cardio), No rub (Cardio) and Peripheral pulses 2+ throughout RATE: regular rate RHYTHM: regular rhythm HEART SOUNDS: S1 normal heart sound present and S2 normal heart sound present PERIPHERAL PULSES: Peripheral pulses 2+ throughout Urinary Catheter Management: Preston: Cath Placed During This Visit: yes Reason for Continuing Indwelling Catheter: Accurate Measurement of Urinary Output in Critically Ill Patients Urinary Catheter Date of Insertion: 10/26/21 Urinary Catheter Time of Insertion: 12:14 Data : 10/29/21 02:57 10/30/21 04:47 Micro: Microbiology 10/26/21 07:45 Blood Culture - Final Blood NO GROWTH AFTER 5 DAYS A&P Assessment and plan (1) Aortic regurgitation: Status: Acute (2) Labile hypertension: This continues to be up and down, but I do not think she needs to be in the ICU anymore. I will transfer her to the floor and continue to monitor her blood pressure, then we will get her up and move her about. She should be home soon. Status: Acute (3) IHSS (idiopathic hypertrophic subaortic stenosis): Status: Acute Attestations Medical Necessity Statement*: Given her labile blood pressure she should spend another night with this at least. Coding Level of Care Code Established Pt Acute Oil And Gas Drafter for Heather Roman Patient Type Established Diagnoses Aortic regurgitation I35.1 Labile hypertension R09.89 IHSS (idiopathic hypertrophic subaortic stenosis) I42.1
[2021-10-31] MEDS: amlodipine 10 mg Tablet PO (09:04)
[2021-10-31] MEDS: spironolactone 25 mg Tablet PO (09:04)
[2021-10-31] MEDS: metoprolol succinate ER (24 HR) 100 mg Tablet 200 MG PO (09:05)
[2021-10-31] MEDS: pantoprazole 40 mg SDV IVP (09:05)
[2021-10-31] MEDS: nystatin powder 15 gm Btl 1 APPLIC TOPICAL ×2 (09:06→19:54)
--- NOTE | 2021-10-31 10:59 | PC.NURSE ---
transfer orders noted to CSU no bed available at this time. will process transfer at this time while awaiting be availability.
--- NOTE | 2021-10-31 12:20 | PC.SOCIAL ---
IMM Updated Updated pt on IMM. No questions voiced. Provided pt a copy. Initialed, dated, & timed copy in chart.
[2021-10-31] MEDS: promethazine 25 mg/mL SDV 1 mL IM (13:06)
[2021-10-31] MEDS: enoxaparin 40 mg/0.4 mL Syringe SUBCUT (13:07)
--- NOTE | 2021-10-31 16:27 | PM.PN ---
Subjective Subjective: Interval history: Blood pressure is under control denies any complaint. Medications: Reviewed: Yes Medication Review Details: Current Medications Acetaminophen (Acetaminophen 325 Mg Tablet) 650 mg PO Q6H PRN PRN Reason: MILD PAIN Last Admin: 10/27/21 22:51 Dose: 650 mg Documented by: Amlodipine Besylate (Amlodipine 5 Mg Tablet) 5 mg PO DAILY [facility] Last Admin: 10/29/21 12:58 Dose: 5 mg Documented by: Lipase/Protease/Amylase (Ymkvjb-Gcjsoant-Gnaruhu Capsule) 1 each PO TIDWM [facility] Last Admin: 10/29/21 20:03 Dose: 1 each Documented by: Enoxaparin Sodium (Enoxaparin 40 Mg/0.4 Ml Syringe) 40 mg SUBCUT Q24H [facility] Last Admin: 10/29/21 10:16 Dose: 40 mg Documented by: Lorazepam (Lorazepam 2 Mg/Ml Inj 1 Ml) 0.5 mg IVP Q6H PRN PRN Reason: ANXIETY Last Admin: 10/29/21 18:52 Dose: 0.5 mg Documented by: Metoprolol Succinate (Metoprolol Succinate Er (24 Hr) 100 Mg Tablet) 200 mg PO DAILY [facility] Metoprolol Succinate (Metoprolol Succinate Er (24 Hr) 100 Mg Tablet) 100 mg PO ONCE [facility] Morphine Sulfate (Morphine Er (12 Hr) 30 Mg Tablet) 30 mg PO BID@0900,2100 [facility] Last Admin: 10/29/21 20:03 Dose: 30 mg Documented by: Non-Formulary Medication (Brivaracetam [Briviact]) 25 mg PO DAILY@08 [facility] Last Admin: 10/29/21 08:00 Dose: Not Given Documented by: Nystatin (Nystatin Powder 15 Gm Btl) 1 applic TOPICAL BID [facility] Last Admin: 10/29/21 20:03 Dose: 1 packet Documented by: Olanzapine (Olanzapine 5 Mg Tablet) 5 mg PO BID [facility] Last Admin: 10/29/21 20:02 Dose: 5 mg Documented by: Ondansetron HCl (Ondansetron 2 Mg/Ml Sdv 2 Ml) 4 mg IVP Q6H PRN PRN Reason: NAUSEA AND VOMITING Last Admin: 10/29/21 18:47 Dose: 4 mg Documented by: Pantoprazole Sodium (Pantoprazole 40 Mg Sdv) 40 mg IVP Q12H [facility] Last Admin: 10/29/21 10:16 Dose: 40 mg Documented by: Polyethylene Glycol (Polyethylene Glycol 3350 Pkt 17 Gm) 17 gm PO BID LEANDRA Last Admin: 10/29/21 20:04 Dose: 17 gm Documented by: Promethazine HCl (Promethazine 25 Mg/Ml Sdv 1 Ml) 25 mg IM Q6H PRN PRN Reason: NAUSEA Last Admin: 10/29/21 12:59 Dose: 25 mg Documented by: Tizanidine HCl (Tizanidine 4 Mg Tablet) 4 mg PO TID PRN PRN Reason: SPASMS Last Admin: 10/29/21 20:03 Dose: 4 mg Documented by: Vitals/I&O/Wt Last Vital Signs Temp 97.7 F 10/31/21 08:00 Pulse 72 10/31/21 16:00 Resp 21 H 10/31/21 16:00 BP 182/83 10/31/21 16:00 Pulse Ox 95 10/31/21 16:00 10/31/21 10/31/21 10/31/21 06:59 14:59 22:59 Intake Total 240 / 960 360 / 360 Balance 240 / 960 360 / 360 Weight last 48 hrs Weight 177 lb 6.4 oz Physical Exam Chest: OTHER: GENERAL: Patient is alert, awake and oriented x3. NECK: No jugular vein distension. HEENT: No cyanosis. No icterus. No pallor. HEART: Regular S1 and S2. No murmur, rub or gallop. LUNGS: Clear to auscultate bilaterally. ABDOMEN: Soft, nontender and nondistended. Positive bowel sounds. No guarding, rebound or tenderness. CENTRAL NERVOUS SYSTEM: Grossly nonfocal. EXTREMITIES: Lower extremities without edema bilaterally. Urinary Catheter Management: Preston: Cath Placed During This Visit: yes Reason for Continuing Indwelling Catheter: Accurate Measurement of Urinary Output in Critically Ill Patients Urinary Catheter Date of Insertion: 10/26/21 Urinary Catheter Time of Insertion: 12:14 Data : 10/29/21 02:57 10/30/21 04:47 Micro: Microbiology 10/26/21 09:20 Blood Culture - Final Blood NO GROWTH AFTER 5 DAYS 10/26/21 07:45 Blood Culture - Final Blood NO GROWTH AFTER 5 DAYS A&P Assessment and plan (1) Labile hypertension: We will continue same medicine. Aldosterone pending Status: Acute (2) IHSS (idiopathic hypertrophic subaortic stenosis): Follow-up with Dr. Brito after discharge for RUTHIE Status: Acute (3) Hypertensive urgency: Result for creatinine and aldosterone pending Status: Acute (4) Aortic regurgitation: Patient has at least moderately severe aortic regurgitation. She may benefit from a RUTHIE, to better evaluate the AR. This may be done as an outpatient Status: Acute (5) Adrenal mass: As per medicine Status: Acute Plan Other problems are Adrenal adenoma Congenital hip dysplasia History of clubfoot History of epilepsy History of pancreatitis Based on the patient's clinical progress, further recommendations will be made Attestations Medical Necessity Statement*: Patient require continuation hospitalization for above event care. She may come out of ICU Coding Level of Care Code Established Pt Acute Exhibit Specialist for Heather Roman Patient Type Established History Detailed Exam Detailed Medical Decision Making Moderate Complexity Diagnoses Labile hypertension R09.89 IHSS (idiopathic hypertrophic subaortic stenosis) I42.1 Hypertensive urgency I16.0 Aortic regurgitation I35.1 Adrenal mass E27.8
[2021-10-31] MEDS: pantoprazole DR 40 mg Tablet PO (19:54)
--- NOTE | 2021-10-31 19:59 | PC.NURSE ---
1800 medications given late due to patient resting.
--- NOTE | 2021-10-31 21:26 | PC.NURSE ---
2120 Patient taken down to CSU for transfer with patient belongings. Patient settled in bed with call light and monitors put on. Receiving nurse Jennifer given report via telephone prior to transfer. Nurse notified of patient arrival.
[2021-10-31 21:28] LABS: Glucose Point of Care 116 mg/dL (70-110)
[2021-11-01] VITALS (13 sets, daily range): BP systolic 85–144; BP diastolic 45–83; PULSE 68–84; RESP 15–25; TEMP 36.6–37; O2SAT 93–97
[2021-11-01] MEDS: LORazepam 2 mg/mL INJ 1 mL 0.5 MG IVP (05:28)
--- NOTE | 2021-11-01 05:36 | PC.NURSE ---
Patient drowsy, but arousable to voice. Patient requesting PRN Ativan. Patient states I get anxious if I don't take it. Patient states that she wants to be woke up and given Ativan when it is due. Patient refusing PRN Zanaflex at this time.
[2021-11-01 06:36] LABS: Glucose Point of Care 121 mg/dL (70-110)
[2021-11-01] MEDS: pantoprazole DR 40 mg Tablet PO (07:58)
[2021-11-01] MEDS: morphine ER (12 HR) 30 mg tablet PO (07:58)
[2021-11-01] MEDS: metoprolol succinate ER (24 HR) 100 mg Tablet 200 MG PO (08:01)
[2021-11-01] MEDS: amlodipine 10 mg Tablet PO (08:01)
[2021-11-01] MEDS: OLANZapine 5 mg TABLET PO (08:01)
[2021-11-01] MEDS: spironolactone 25 mg Tablet PO (08:01)
[2021-11-01] MEDS: polyethylene glycol 3350 Pkt 17 gm PO (08:02)
[2021-11-01] MEDS: tizanidine 4 mg Tablet PO (08:02)
[2021-11-01] MEDS: nystatin powder 15 gm Btl 1 APPLIC TOPICAL (08:06)
[2021-11-01] MEDS: lipase-protease-amylase Capsule 1 EACH PO (08:39)
--- NOTE | 2021-11-01 10:56 | P.DS_ITS ---
Discharge Providers Date of Admission: 10/26/21 07:37 Date of Discharge: November 01, 2021 Attending Provider at Admission: Chemo Oviedo MD Attending Provider at Discharge: Yony Otero MD Primary Care Provider: Yony Otero MD Diagnoses at Discharge Discharge Diagnosis (1) Labile hypertension: Status: Acute (2) IHSS (idiopathic hypertrophic subaortic stenosis): Status: Acute (3) Hypertensive urgency: Status: Acute (4) Aortic regurgitation: Status: Acute (5) Adrenal mass: Status: Acute Reason for Visit Reason for Visit: sob, cough,n/v, Hospital Course Hospital Course Eleanor was admitted with labile hyper tension she spent some time in the ICU. She had a fairly protracted course and healthcare team had a little bit of difficulty finding the right cocktail of blood pressure medicines that kept her where she needed to be. She is doing well today with her blood pressure is doi ng well and I will see her in my office in follow-up soon. Physical Exam Urinary Catheter Management: Preston: Cath Placed During This Visit: yes Reason for Continuing Indwelling Catheter: Accurate Measurement of Urinary Output in Critically Ill Patients Urinary Catheter Date of Insertion: 10/26/21 Urinary Catheter Time of Insertion: 12:14 Discharge Data Studies Completed and Pending Completed Studies During Hospitalization Category Date Time Status CT abdomen pelvis w con* 30108 Urgent Cat Scan 10/26/21 02:[address] head wo con* [id number] Urgent Cat Scan 10/25/21 21:16 Completed XR chest 1V portable [id number] Urgent Exams 10/25/21 19:57 Completed CV. echo complete* [id number] Routine Ultrasound 10/27/21 09:36 Completed US renal doppler [CV renal doppler 20793] Routine Ultrasound 10/30/21 07:15 Completed Pending at discharge Category Date Time Status 5-HIAA 24Hr Urine Routine Lab 10/28/21 11:00 Received Aldosterone Routine Lab 10/30/21 07:59 Received Catecholamines Free,Urine 24hr Routine Lab 10/28/21 11:00 Received Clostridioides Difficile PCR Routine Lab 10/26/21 09:30 Uncollected Cortisol,Free 24hr Urine LC/MS Routine Lab 10/29/21 11:00 Received Enteric Bacterial Panel by PCR Routine Lab 10/26/21 09:30 Uncollected Metanephrines, Frac LC/MS/MS Routine Lab 10/27/21 11:09 Received RENIN [Plasma Renin Activity LC/MS/MS] Routine Lab 10/30/21 04:47 Received Radiology Impressions Chest X-Ray 10/25/21 19:57 IMPRESSION: No acute findings. Head CT 10/25/21 21:16 IMPRESSION: No acute intracranial abnormality. Abdomen/Pelvis CT 10/26/21 02:42 IMPRESSION: 1. No findings to suggest appendicitis. 2. No free air or bowel distention. 3. Small left adrenal nodule, see above. 4. Possible mild urinary bladder wall thickening, see above. 5. Possible fibroid versus fluid in the lower uterine segment. 6. The right ovary contains two dominant follicles versus cyst, measuring 20 and 12 mm in size. Significance unlikely due to relatively small size. Trace amount of cul-de-sac fluid. 7. Other findings discussed above. COMMENTS: Consistent with the [employer]'s Incidental Findings Committee white paper (J Am Tammy Radiol 2018): Any incidental renal lesion less than 1 cm or classified as too small to characterize, or any incidental cystic renal lesion characterized as simple-appearing, is likely benign. No follow-up imaging is recommended for these lesions per consensus recommendations based on imaging criteria. Laboratory Results WBC 11.1 10^3/uL (4.0-10.0) H 10/29/21 02:57 RBC 4.80 10^6/uL (4.1-5.3) 10/29/21 02:57 Hgb 13.9 g/dL (11.5-15.3) 10/29/21 02:57 Hct 43.1 % (37.0-47.0) 10/29/21 02:57 MCV 89.8 fl (81-99) 10/29/21 02:57 MCH 29.0 pg (28.0-34.0) 10/29/21 02:57 MCHC 32.3 g/dL (30.0-36.0) 10/29/21 02:57 RDW 13.2 % (12.1-15.1) 10/29/21 02:57 Plt Count 211 10^3/cmm (130-400) 10/29/21 02:57 MPV 12.5 fL (7.4-10.4) H 10/29/21 02:57 Neut % (Auto) 36.7 % 10/29/21 02:57 Lymph % (Auto) 48.5 % 10/29/21 02:57 Mcduffie % (Auto) 12.6 % 10/29/21 02:57 Eos % (Auto) 1.0 % 10/29/21 02:57 Baso % (Auto) 0.9 % 10/29/21 02:57 Neut # (Auto) 4.07 10^3/uL (1.8-7.7) 10/29/21 02:57 Lymph # (Auto) 5.4 10^3/uL (0.8-4.8) H 10/29/21 02:57 Mcduffie # (Auto) 1.4 10^3/uL (0.2-0.9) H 10/29/21 02:57 Eos # (Auto) 0.1 10^3/uL (0.0-0.8) 10/29/21 02:57 Baso # (Auto) 0.1 10^3/uL (0.0-0.1) 10/29/21 02:57 Nucleated RBC % (auto) 0 % 10/29/21 02:57 Nucleated RBCs # 0.0 /100WBC 10/29/21 02:57 Sodium 139 mmol/L (136-145) 10/30/21 04:47 Potassium 3.9 mmol/L (3.5-5.1) 10/30/21 04:47 Chloride 103 mmol/L (98-107) 10/30/21 04:47 Carbon Dioxide 24 mmol/L (22-29) 10/30/21 04:47 Anion Gap 15.9 (5-19) 10/30/21 04:47 BUN 9 mg/dL (6-20) 10/30/21 04:47 Creatinine 0.8 mg/dL (0.5-0.9) 10/30/21 04:47 GFR Calculation 79.0 mL/min (90-130) L 10/30/21 04:47 Glucose 96 mg/dL (65-115) 10/30/21 04:47 POC Glucose 121 mg/dL (70-110) H 11/01/21 06:29 Calculated Osmolality 287 mOsm/kg (285-295) 10/30/21 04:47 Calcium 8.8 mg/dL (8.5-10.5) 10/30/21 04:47 Magnesium 1.8 mg/dL (1.7-2.3) 10/28/21 02:31 Total Bilirubin 0.7 mg/dL (0.15-1.2) 10/28/21 02:31 AST 24 U/L (0-32) 10/28/21 02:31 ALT 22 U/L (0-33) 10/28/21 02:31 Alkaline Phosphatase 98 IU/L (35-105) 10/28/21 02:31 Creatine Kinase 46 U/L (26-192) 10/26/21 05:00 Troponin T Baseline 9 ng/L (0-10) 10/26/21 05:00 Troponin T 120 Minute 9.68 ng/L (0-10) 10/26/21 07:45 Delta Troponin T 0.68 ABS# (0-10) 10/26/21 07:45 Troponin T Hi Sens 6Hr 10.81 ng/L (0-10) H 10/26/21 11:14 Troponin T Hi Sens 6Hr Delta 1.81 ng/L (0-12) 10/26/21 11:14 Total Protein 6.8 g/dL (6.6-8.7) 10/28/21 02:31 Albumin 3.8 g/dL (3.5-5.2) 10/28/21 02:31 Globulin 3.0 g/dL (1.3-4.6) 10/28/21 02:31 Lipase 43 U/L (13-60) 10/26/21 11:14 TSH 1.06 uIU/mL (0.27-4.20) 10/27/21 04:35 Free T4 1.30 ng/dL (0.82-1.77) 10/27/21 04:35 Free T3 1.9 PG/ML (2.0-4.4) L 10/27/21 04:35 Urine Color Yellow (Yellow) 10/26/21 02:08 Urine Appearance Clear (CLEAR) 10/26/21 02:08 Urine pH 5 (5-7) 10/26/21 02:08 Ur Specific [place] 1.020 (1.005-1.030) 10/26/21 02:08 Urine Protein Neg (Negative) 10/26/21 02:08 Urine Glucose (UA) Norm (Normal) 10/26/21 02:08 Urine Ketones 2+ (Negative) H 10/26/21 02:08 Urine Blood Neg (Negative) 10/26/21 02:08 Urine Nitrate Negative (Negative) 10/26/21 02:08 Urine Bilirubin Neg (Negative) 10/26/21 02:08 Urine Urobilinogen 1 mg/dL (Negative) H 10/26/21 02:08 Ur Leukocyte Esterase Negative (Negative) 10/26/21 02:08 Urine Total Volume 1750 ml 10/28/21 11:00 Urine Creatinine 43 mg/dL (28-217) 10/28/21 11:00 Ur Creatinine 24 Hour 752.5 mg/dL (601-1689) 10/28/21 11:00 Coronavirus 229E (PCR) Not detected (NOT DETECT) 10/26/21 09:40 SARS-CoV-2 (PCR) Not detected (NOT DETECT) 10/26/21 09:40 Vitals Last Vital Signs Temp 97.8 F 11/01/21 07:16 Pulse 70 11/01/21 07:16 Resp 20 H 11/01/21 07:58 BP 106/52 11/01/21 07:16 Pulse Ox 94 11/01/21 07:58 Discharge Plan Discharge Patient Disposition: Home Condition: Serious Prescriptions: New tizanidine 4 mg Tablet 4 mg PO TID PRN (Reason: Spasms) Qty: 90 0RF metoprolol succinate 100 mg Tablet Extended Release 24 Hr 200 mg PO DAILY Qty: 90 3RF spironolactone 25 mg Tablet 25 mg PO DAILY Qty: 90 3RF amlodipine 10 mg Tablet 10 mg PO DAILY Qty: 90 3RF Zenpep 5,000-17,000- 24,000 unit Capsule,Delayed Release(Dr/Ec) 1 ea PO TIDWM Qty: 90 0RF Continued (DME) wheelchair See Rx Instructions .Route .MEDSUPPLY Qty: 1 0RF Rx Instructions: patient needs replacement chair. (DME) STANDARD WHEELCHAIR See Rx Instructions .Route .MEDSUPPLY Qty: 1 0RF Rx Instructions: As directed morphine 30 mg tablet extended release 30 mg PO Q12H 30 Days Qty: 60 0RF Rx Instructions: at 0800/2000 lorazepam [Ativan] 0.5 mg tablet 0.5 mg PO TID PRN (Reason: anxiety) Qty: 10 0RF OneTouch Ultra Blue Test Strip Strip See Rx Instructions .ROUTE .COMPLEX Qty: 100 0RF Dose Instruction: TEST BLOOD SUGAR TWICE DAILY DX E11.9 Rx Instructions: TEST BLOOD SUGAR TWICE DAILY DX E11.9 (DME) wheelchair See Rx Instructions .Route .MEDSUPPLY Qty: 1 0RF Rx Instructions: As directed zolpidem 5 mg tablet 5 mg PO BEDTIME PRN (Reason: Sleep) Qty: 30 3RF Zenpep 40,000-126,000- 168,000 unit capsule,delayed release(DR/EC) 1 cap PO TID Qty: 90 8RF Rx Instructions: administer with meals and/or snacks Briviact 25 mg tablet 25 mg PO DAILY@08 Qty: 60 0RF tizanidine 4 mg tablet 8 mg PO TID PRN (Reason: muscle spasticity) 30 Days Qty: 180 3RF pantoprazole 40 mg tablet,delayed release (DR/EC) 40 mg PO BID@08,20 Qty: 90 3RF ondansetron HCl 4 mg tablet 4 mg PO Q8H PRN (Reason: nausea and vomiting) Qty: 20 0RF Benadryl 25 mg Capsule 25 mg PO Q6H PRN (Reason: Allergy Symptoms) 0RF Miralax 17 gram/dose Powder 17 g PO QAM 0RF Discontinued carvedilol 12.5 mg tablet 12.5 mg PO BID Qty: 60 0RF Rx Instructions: must administer with a meal/food Discharge Orders: Discharge Order (Routine); Ordered 11/01/21 Ordered By: Yony Otero Other Ambulatory Orders: Request for MCA (Urgent) Timeframe: 1 Day Facility: [facility] - Location: [facility] Ordered By: Paramjit Duong Referrals: Yony Otero MD [Primary Care Provider] - Patient Instructions: Acute Diarrhea (ED), COVID-19 (Coronavirus Disease 2019) (ED), Opioid Safety Activity Restrictions/Additional Instructions: Come back to the emergency room if your symptoms worsen, have any shortness of breath, fever/chills, dehydration, inability tolerate p.o., any difficulty breathing, or any new or concerning complaints. Please return the emergency room if your pulse ox reads less than 88%. Discharge Attestations Time Spent in Discharge Care*: greater than 30 min Status at Discharge: Cognitive status at discharge: cognitively intact , Behavioral status at discharge: cooperative , Quality Metrics Clinical Quality Measures [ No reported AMI, CVA or VTE this stay] Coding Level of Care Code Acute Chg FW DC note Diagnoses Labile hypertension R09.89 IHSS (idiopathic hypertrophic subaortic stenosis) I42.1 Hypertensive urgency I16.0 Aortic regurgitation I35.1 Adrenal mass E27.8
[2021-11-01 11:28] LABS: Glucose Point of Care 174 mg/dL (70-110)
--- NOTE | 2021-11-01 12:49 | PC.NURSE ---
discharge instructions given and explained.pt verb understanding.discharged via w/c to exit. to drive pt home.
[2021-11-02 12:06] LABS: Metanephrine Total Free 231 pg/mL (<=205)
[2021-11-02 16:18] LABS: 24 Hour Urine Volume 1750 mL; 5-HIAA, 24 Hour Urine 3.3 mg/24 h (<=6.0)
[2021-11-02 20:12] LABS: Free Cortisol Urine 22.9 mcg/24 h (4.0-50.0); Total Urine 1750 mL; Urine Creatinine 0.76 g/24 h (0.50-2.15)
[2021-11-04 19:17] LABS: Calculated Total (E+NE) 29 mcg/24 h (26-121)
== END 2021-11-01 12:50 | disposition home or self-care (01) | DRG 305 ==
LOC: ER 10-26 05:05 → ICU 10-26 07:05 → CSU 10-31 23:19
PROVIDERS: Emergency Medicine; Family Medicine; Internal Medicine; Admitting Provider Internal Medicine; Emergency Provider Emergency Medicine; PCP Internal Medicine; Visit Provider Internal Medicine
DX: I16.0 Hypertensive urgency (principal); K86.1 Other chronic pancreatitis; I42.1 Obstructive hypertrophic cardiomyopathy; I50.9 Heart failure, unspecified; E11.9 Type 2 diabetes mellitus without complications; G40.909 Epilepsy, unspecified, not intractable, without status epilepticus; I11.0 Hypertensive heart disease with heart failure; Z86.16 Personal history of COVID-19; G89.4 Chronic pain syndrome; Z79.891 Long term (current) use of opiate analgesic; E27.8 Other specified disorders of adrenal gland
CPT/HCPCS: 36415; 36416; 51702; 70450; 71045; 74177; 80048; 80053; 81003; 82088; 82384; 82530; 82550; 82570; 82962; 83497; 83690; 83735; 83835; 84244; 84439; 84443; 84481; 84484; 85025; 87040; 87635; 93005; 93306; 93975; 96365; 96372; 96375; 99285; C9113; J0360; J1170; J1200; J1630; J1650; J2060; J2270; J2310; J2405; J2550; J3475; J3490; J7030; J7040; Q9967

== ENCOUNTER 2021-11-15 19:40 | Inpatient (IN) | payer MEDICARE, MEDICAID, SELFPAY ==
[2021-11-15 19:44] VITALS: PULSE 156; RESP 20; TEMP 37.4; O2SAT 98; BMI 33.2
[2021-11-15 19:49] VITALS: BP 244/104
--- NOTE | 2021-11-15 20:05 | ED_ITS ---
Documented by User: Paramjit Duong MD 11/15/21 23:40 HPI - General Adult General: Chief complaint: General Medical Stated complaint: B/P problems Time Seen by Provider: 11/15/21 19:55 History of Present Illness: Patient is a 41-year-old female with a history of left-sided adrenal mass, CHF, chronic pancreatitis diabetes who presents to the emergency room for concerns of episodic tachycardia and hypertension. During these episodes of hypertension, patient also a low grade fever. Patient tells me that she has had multiple episodes throughout the last week. Patient was recently mid to the hospital for to the ICU for similar findings. Today, patient tells me that she has been feeling symptoms of tachycardia and belly pain radiating towards the chest since 5 AM today. Patient currently followed by [facility] awaiting endocrine for evaluation of adrenal mass. She has no focal neurological weakness, denies any tearing chest or abdominal pain, reports s ignificant nausea and vomiting. Patient reports episodic facial flushing with the episode. Patient denies any history of thyroid problem. No complaints of diarrhea, melena medic easier, urinary complaints, fever chills, cough runny nose or sore throat. Onset: 5am today Duration: ongoing Location:home Severity:moderate/severe Associated symptoms: Reports chest pain, nausea, palpitations and vomiting; Deny dyspnea or rash Review of Systems Const: Reports: fever(s); Denies: chills Eyes: Denies: change in vision ENMT: Denies: mouth pain Card: Reports: chest pain and palpitations Resp: Denies: dyspnea or non-productive cough GI: Reports: abdominal pain, nausea and vomiting; Denies: diarrhea : Denies: dysuria Musc: Denies: extremity pain Skin/Breast: Denies: rash or new lesions Neuro: Denies: weakness in extremities Psych: Reports: other (normal mood) Benjy/Lymph: Denies: easy bruising PFSH ED PFSH: Medical History Adrenal mass CHF (congestive heart failure) Chronic pain of lower extremity, bilateral Chronic pancreatitis 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 Constipation Constipation Diabetes Epilepsy Essential (primary) hypertension GI bleed Hypertensive urgency Primary osteoarthritis Recurrent vomiting Surgical History History of bilateral knee replacement History of cholecystectomy History of D&C 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 Family History Grandmother Cancer Lung disease Stroke Mother Lung disease Other A-fib CHF (congestive heart failure) Social History Smoking and tobacco status: never smoked Alcohol intake: never Household members: spouse Housing: House Marital status: Current occupational status: disabled History of recent travel: No Physical Exam Const: COMMON NORMALS: alert HENMT: COMMON NORMALS: atraumatic HEAD & SCALP: atraumatic MOUTH: moist mucous membranes not abnormal Eye: COMMON NORMALS: EOMs intact bilaterally and conjunctivae normal CONJUNCTIVA: Yes conjunctivae normal Neck/C-Spine: COMMON NORMALS: full ROM and supple Resp: COMMON NORMALS: normal respiratory effort and clear to auscultation bilaterally AUSCULTATION: clear to auscultation bilaterally Cardio: RATE: tachycardic GI: COMMON NORMALS: Soft to palpation PALPATION: Yes Soft to palpation OTHER: Moderate upper abdominal TTP worse in the midepigastric and RUQ areas. NO guarding rebound, guarding, rigidity. No CVA tenderness to percussion. Neg [place]/Neg McBurney's point tenderness, no suprabupic tenderness to palpation. Extremity: COMMON NORMALS: full ROM Neuro: SENSORIUM/ORIENTATION: Yes alert MOTOR EXAM: No Abnormal motor strength present and Other motor observations present (no focal motor deficits) Psych: COMMON NORMALS: speech normal SPEECH: Yes normal speech MOOD & AFFECT: Yes euthymic mood Course Vital Signs: Vital signs: Vital Signs Temperature 99.3 F 11/15/21 19:44 Pulse Rate 99 11/16/21 00:55 Respiratory Rate 18 11/16/21 00:55 Blood Pressure 172/90 11/16/21 01:13 Pulse Oximetry 97 11/16/21 00:55 [facility] - General Adult Medical Decision Making 41-year-old female with a history of episodic hypertension tachycardia presenting to the emergency room for evaluation of new onset of symptoms since 5 AM. On arrival, patient was tachycardic to 130s 140s. Blood pressure is noted to be 211/91. Rest of exam within normal limit. Finding of significant abdominal pain with radiation to the chest. Decision was made to evaluate for dissection and other intraabdominal pathologies CTA chest and abdomen pelvis negative for any signs of acute dissection. There is no other focal findings other than minimal pancreatic swelling. Patient is noted to have a left-sided 16 mm adrenal nodule. Finding of tachycardia hypotension and blushing episode, this is concerning for possible pheochromocytoma. I discussed case with pharmacy who tells me that they do not have phentolamine at this time. We will attempt to control the blood pressure and the heart rate. Patient was started on nicardipine drip. S/p labetolol push. Blood pressure and HR appear to be improving. Case signed out to Dr. Alejo pending TSH/T4 metanephrines Lab Data : 11/15/21 21:11 11/15/21 21:11 Radiology Impressions Chest X-Ray 11/15/21 20:11 IMPRESSION: No acute findings. Chest/Abdomen/Pelvis CTA 11/15/21 21:32 IMPRESSION: 1. Minimal edema in the region of the pancreatic head with several prominent subcentimeter lymph nodes, please correlate for possible pancreatitis. 2. Cholecystectomy. 3. Hepatic steatosis suspected. 4. Left adrenal 18 mm low-density lesion suggestive of a benign adenoma. 5. Constipation. Laboratory Results WBC 13.5 10^3/uL (4.0-10.0) H 11/15/21 21:11 RBC 5.33 10^6/uL (4.1-5.3) H 11/15/21 21:11 Hgb 15.3 g/dL (11.5-15.3) 11/15/21 21:11 Hct 46.5 % (37.0-47.0) 11/15/21 21:11 MCV 87.2 fl (81-99) 11/15/21 21:11 MCH 28.7 pg (28.0-34.0) 11/15/21 21:11 MCHC 32.9 g/dL (30.0-36.0) 11/15/21 21:11 RDW 12.7 % (12.1-15.1) 11/15/21 21:11 Plt Count 307 10^3/cmm (130-400) 11/15/21 21:11 MPV 11.5 fL (7.4-10.4) H 11/15/21 21:11 Neut % (Auto) 65.1 % 11/15/21 21:11 Lymph % (Auto) 26.0 % 11/15/21 21:11 [place] % (Auto) 7.1 % 11/15/21 21:11 Eos % (Auto) 0.6 % 11/15/21 21:11 Baso % (Auto) 0.8 % 11/15/21 21:11 Neut # (Auto) 8.77 10^3/uL (1.8-7.7) H 11/15/21 21:11 Lymph # (Auto) 3.5 10^3/uL (0.8-4.8) 11/15/21 21:11 [place] # (Auto) 1.0 10^3/uL (0.2-0.9) H 11/15/21 21:11 Eos # (Auto) 0.1 10^3/uL (0.0-0.8) 11/15/21 21:11 Baso # (Auto) 0.1 10^3/uL (0.0-0.1) 11/15/21 21:11 Nucleated RBC % (auto) 0 % 11/15/21 21:11 Nucleated RBCs # 0.0 /100WBC 11/15/21 21:11 Sodium 138 mmol/L (136-145) 11/15/21 21:11 Potassium 4.0 mmol/L (3.5-5.1) 11/15/21 21:11 Chloride 103 mmol/L (98-107) 11/15/21 21:11 Carbon Dioxide 20 mmol/L (22-29) L 11/15/21 21:11 Anion Gap 19.0 (5-19) 11/15/21 21:11 BUN 8 mg/dL (6-20) 11/15/21 21:11 Creatinine 0.6 mg/dL (0.5-0.9) 11/15/21 21:11 GFR Calculation 110.2 mL/min (90-130) 11/15/21 21:11 Glucose 127 mg/dL (65-115) H 11/15/21 21:11 Calculated Osmolality 286 mOsm/kg (285-295) 11/15/21 21:11 Calcium 10.0 mg/dL (8.5-10.5) 11/15/21 21:11 Total Bilirubin 0.6 mg/dL (0.15-1.2) 11/15/21 21:11 AST 47 U/L (0-32) H 11/15/21 21:11 ALT 36 U/L (0-33) H 11/15/21 21:11 Alkaline Phosphatase 131 IU/L (35-105) H 11/15/21 21:11 Troponin T Baseline 8 ng/L (0-10) 11/15/21 21:11 Troponin T 120 Minute 13.45 ng/L (0-10) H 11/15/21 23:10 Delta Troponin T 5.45 ABS# (0-10) 11/15/21 23:10 Total Protein 7.5 g/dL (6.6-8.7) 11/15/21 21:11 Albumin 4.5 g/dL (3.5-5.2) 11/15/21 21:11 Globulin 3.0 g/dL (1.3-4.6) 11/15/21 21:11 Lipase 36 U/L (13-60) 11/15/21 21:11 TSH 0.94 uIU/mL (0.27-4.20) 11/15/21 21:11 Free T4 1.25 ng/dL (0.82-1.77) 11/15/21 21:11 Urine Color Yellow (Yellow) 11/15/21 22:52 Urine Appearance Clear (CLEAR) 11/15/21 22:52 Urine pH 5 (5-7) 11/15/21 22:52 Ur Specific [place] 1.005 (1.005-1.030) 11/15/21 22:52 Urine Protein Neg (Negative) 11/15/21 22:52 Urine Glucose (UA) Norm (Normal) 11/15/21 22:52 Urine Ketones Negative (Negative) 11/15/21 22:52 Urine Blood Neg (Negative) 11/15/21 22:52 Urine Nitrate Negative (Negative) 11/15/21 22:52 Urine Bilirubin Neg (Negative) 11/15/21 22:52 Urine Urobilinogen Norm mg/dL (Negative) 11/15/21 22:52 Ur Leukocyte Esterase Negative (Negative) 11/15/21 22:52 Coronavirus 229E (PCR) Not detected (NOT DETECT) 11/15/21 20:40 SARS-CoV-2 (PCR) Not detected (NOT DETECT) 11/15/21 20:40 Imaging Data Other Imaging: Radiologist's impression: [facility] [place] [address] CT Scan Report Signed Patient: Eleanor Ragland Unit #: [id number] : 1980 Age/Sex: 41 / F ADM Date: 11/15/21 Loc: ER Room/Bed: Attending Dr: Ordering Provider/Ordering MD: Paramjit Duong MD Date of Service: 11/15/21 Procedure(s): CT angio chest abdomen pelvis Accession Number(s): [id number] Report Number: [id number] PROCEDURE INFORMATION: Exam: CTA Abdomen and Pelvis With Contrast Exam date and time: 11/15/2021 9:32 PM Age: 41 years old Clinical indication: Shortness of breath; Prior surgery; Surgery date: 6+ months; Additional info: Eval for pathologies TECHNIQUE: Imaging protocol: Computed tomographic angiography of the abdomen and pelvis with contrast material. 3D rendering (Not supervised by radiologist): MIP and/or 3D reconstructed images were created by the technologist. Radiation optimization: All CT scans at this facility use at least one of these dose optimization techniques: automated exposure control; mA and/or kV adjustment per patient size (includes targeted exams where dose is matched to clinical indication); or iterative reconstruction. Contrast material: VISI; Contrast volume: 95 ml; Contrast route: INTRAVENOUS (IV);? COMPARISON: CT abdomen pelvis w con* [id number] 10/26/2021 3:16 AM RADIATION DOSE METRICS: Total DLP (mGy-cm): 1985.36 FINDINGS: Aorta: No aortic aneurysm. No aortic dissection. Celiac trunk and mesenteric arteries: No occlusion or significant stenosis. Renal arteries: No occlusion or significant stenosis. Right iliac arteries: No occlusion or significant stenosis. Left iliac arteries: No occlusion or significant stenosis. Liver: Hepatic steatosis suspected. Gallbladder and bile ducts: Cholecystectomy. Pancreas: Minimal edema in the region of the pancreatic head with several prominent subcentimeter lymph nodes, please correlate for possible pancreatitis. Spleen: Unremarkable. No splenomegaly. Adrenal glands: Left adrenal 18 mm low-density lesion suggestive of a benign adenoma. Kidneys and ureters: Unremarkable. No solid mass. No hydronephrosis. Stomach and bowel: Constipation. Appendix: No evidence of appendicitis. Intraperitoneal space: Unremarkable. No free air. No significant fluid collection. Lymph nodes: Unremarkable. No enlarged lymph nodes. Urinary bladder: Unremarkable. No mass. Reproductive: Unremarkable as visualized. Bones/joints: No acute fracture. No dislocation. Soft tissues: Unremarkable. CT/CT angio chest abdomen pelvis IMPRESSION: 1. Minimal edema in the region of the pancreatic head with several prominent subcentimeter lymph nodes, please correlate for possible pancreatitis. 2. Cholecystectomy. 3. Hepatic steatosis suspected. 4. Left adrenal 18 mm low-density lesion suggestive of a benign adenoma. 5. Constipation. ? Dictated By: Davion Reina MD Signed By: Davion Reina MD Signed Date/Time: 11/15/212244 DD/ 31 Discharge Plan Discharge Patient Disposition: Admitted As Inpatient Clinical Impression: Hypertensive crisis Condition: Serious Prescriptions: No Action (DME) wheelchair See Rx Instructions .Route .MEDSUPPLY Qty: 1 0RF Rx Instructions: patient needs replacement chair. (DME) STANDARD WHEELCHAIR See Rx Instructions .Route .MEDSUPPLY Qty: 1 0RF Rx Instructions: As directed lorazepam [Ativan] 0.5 mg tablet 0.5 mg PO TID PRN (Reason: anxiety) Qty: 10 0RF furosemide 20 mg tablet 20 mg PO DAILY PRN (Reason: edema) Qty: 30 0RF morphine 30 mg tablet extended release 30 mg PO Q12H 30 Days Qty: 60 0RF Rx Instructions: at 0800/2000 pantoprazole 40 mg tablet,delayed release (DR/EC) 40 mg PO BID@08,20 Qty: 90 3RF OneTouch Ultra Blue Test Strip Strip See Rx Instructions .ROUTE .COMPLEX Qty: 100 0RF Dose Instruction: TEST BLOOD SUGAR TWICE DAILY DX E11.9 Rx Instructions: TEST BLOOD SUGAR TWICE DAILY DX E11.9 (DME) wheelchair See Rx Instructions .Route .MEDSUPPLY Qty: 1 0RF Rx Instructions: As directed Zenpep 40,000-126,000- 168,000 unit capsule,delayed release(DR/EC) 1 cap PO TID Qty: 90 8RF Rx Instructions: administer with meals and/or snacks Briviact 25 mg tablet 25 mg PO DAILY@08 Qty: 60 0RF tizanidine 4 mg tablet 8 mg PO TID PRN (Reason: muscle spasticity) 30 Days Qty: 180 3RF pantoprazole 40 mg tablet,delayed release (DR/EC) 40 mg PO BID@08,20 Qty: 90 3RF ondansetron HCl 4 mg tablet 4 mg PO Q8H PRN (Reason: nausea and vomiting) Qty: 20 0RF zolpidem 5 mg tablet 5 mg PO BEDTIME PRN (Reason: Sleep) Qty: 30 3RF Benadryl 25 mg Capsule 25 mg PO Q6H PRN (Reason: Allergy Symptoms) 0RF Miralax 17 gram/dose Powder 17 g PO QAM 0RF tizanidine 4 mg Tablet 4 mg PO TID PRN (Reason: Spasms) Qty: 90 0RF metoprolol succinate 100 mg Tablet Extended Release 24 Hr 200 mg PO DAILY Qty: 90 3RF spironolactone 25 mg Tablet 25 mg PO DAILY Qty: 90 3RF amlodipine 10 mg Tablet 10 mg PO DAILY Qty: 90 3RF Zenpep 5,000-17,000- 24,000 unit Capsule,Delayed Release(Dr/Ec) 1 ea PO TIDWM Qty: 90 0RF Referrals: Yony Otero MD [Primary Care Provider] - Coding Level of Care Code ED Camera Technician for Chg Fwd Exam Comprehensive Documented by User: Vishnu Alejo DO 11/16/21 01:31 HPI - General Adult General: Chief complaint: General Medical Stated complaint: B/P problems Time Seen by Provider: 11/15/21 19:55 PFSH ED PFSH: Medical History Adrenal mass CHF (congestive heart failure) Chronic pain of lower extremity, bilateral Chronic pancreatitis 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 Constipation Constipation Diabetes Epilepsy Essential (primary) hypertension GI bleed Hypertensive urgency Primary osteoarthritis Recurrent vomiting Surgical History History of bilateral knee replacement History of cholecystectomy History of D&C 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 Family History Grandmother Cancer Lung disease Stroke Mother Lung disease Other A-fib CHF (congestive heart failure) Social History Smoking and tobacco status: never smoked Alcohol intake: never Household members: spouse Housing: House Marital status: Current occupational status: disabled History of recent travel: No Course Vital Signs: Vital signs: Vital Signs Temperature 99.3 F 11/15/21 19:44 Pulse Rate 99 11/16/21 00:55 Respiratory Rate 18 11/16/21 00:55 Blood Pressure 172/90 11/16/21 01:13 Pulse Oximetry 97 11/16/21 00:55 [facility] - General Adult Medical Decision Making 41-year-old female with a history of episodic hypertension tachycardia presenting to the emergency room for evaluation of new onset of symptoms since 5 AM. On arrival, patient was tachycardic to 130s 140s. Blood pressure is noted to be 211/91. Rest of exam within normal limit. Finding of significant abdominal pain with radiation to the chest. Decision was made to evaluate for dissection and other intraabdominal pathologies CTA chest and abdomen pelvis negative for any signs of acute dissection. There is no other focal findings other than minimal pancreatic swelling. Patient is noted to have a left-sided 16 mm adrenal nodule. Finding of tachycardia hypotension and blushing episode, this is concerning for possible pheochromocytoma. I discussed case with pharmacy who tells me that they do not have phentolamine at this time. We will attempt to control the blood pressure and the heart rate. Patient was started on nicardipine drip. S/p labetolol push. Blood pressure and HR appear to be improving. Case signed out to Dr. Alejo pending TSH/T4 metanephrines 0123: Received in checkout from previous physician at change of shift. This lady came in and hypertensive crisis. She had been placed on a nicardipine drip, but shortly thereafter developed shortness of breath, a feeling of tongue swelling, and trouble swallowing. She was given Benadryl and Solu-Medrol with some Ativan and a racemic epinephrine treatment. This improved significantly. Nicardipine was obviously DC'd, with addition of esmolol drip. Currently heart rate 97, blood pressure 162/85, saturations are 97%. Respirations are down to 14. There is concern because of the adrenal mass, the patient could have pheochromocytoma. Currently she is on a esmolol drip. She will require strict blood pressure and heart rate control prior to any surgical intervention. We have called multiple facilities around the [facility], and in [facility], with no ICU bed availability which she would require on the esmolol drip. I spoke with our hospitalist, who is willing to see her in the ER for admission. Lab Data : 11/15/21 21:11 11/15/21 21:11 Radiology Impressions Chest X-Ray 11/15/21 20:11 IMPRESSION: No acute findings. Chest/Abdomen/Pelvis CTA 11/15/21 21:32 IMPRESSION: 1. Minimal edema in the region of the pancreatic head with several prominent subcentimeter lymph nodes, please correlate for possible pancreatitis. 2. Cholecystectomy. 3. Hepatic steatosis suspected. 4. Left adrenal 18 mm low-density lesion suggestive of a benign adenoma. 5. Constipation. Laboratory Results WBC 13.5 10^3/uL (4.0-10.0) H 11/15/21 21:11 RBC 5.33 10^6/uL (4.1-5.3) H 11/15/21 21:11 Hgb 15.3 g/dL (11.5-15.3) 11/15/21 21:11 Hct 46.5 % (37.0-47.0) 11/15/21 21:11 MCV 87.2 fl (81-99) 11/15/21 21:11 MCH 28.7 pg (28.0-34.0) 11/15/21 21:11 MCHC 32.9 g/dL (30.0-36.0) 11/15/21 21:11 RDW 12.7 % (12.1-15.1) 11/15/21 21:11 Plt Count 307 10^3/cmm (130-400) 11/15/21 21:11 MPV 11.5 fL (7.4-10.4) H 11/15/21 21:11 Neut % (Auto) 65.1 % 11/15/21 21:11 Lymph % (Auto) 26.0 % 11/15/21 21:11 [place] % (Auto) 7.1 % 11/15/21 21:11 Eos % (Auto) 0.6 % 11/15/21 21:11 Baso % (Auto) 0.8 % 11/15/21 21:11 Neut # (Auto) 8.77 10^3/uL (1.8-7.7) H 11/15/21 21:11 Lymph # (Auto) 3.5 10^3/uL (0.8-4.8) 11/15/21 21:11 [place] # (Auto) 1.0 10^3/uL (0.2-0.9) H 11/15/21 21:11 Eos # (Auto) 0.1 10^3/uL (0.0-0.8) 11/15/21 21:11 Baso # (Auto) 0.1 10^3/uL (0.0-0.1) 11/15/21 21:11 Nucleated RBC % (auto) 0 % 11/15/21 21:11 Nucleated RBCs # 0.0 /100WBC 11/15/21 21:11 Sodium 138 mmol/L (136-145) 11/15/21 21:11 Potassium 4.0 mmol/L (3.5-5.1) 11/15/21 21:11 Chloride 103 mmol/L (98-107) 11/15/21 21:11 Carbon Dioxide 20 mmol/L (22-29) L 11/15/21 21:11 Anion Gap 19.0 (5-19) 11/15/21 21:11 BUN 8 mg/dL (6-20) 11/15/21 21:11 Creatinine 0.6 mg/dL (0.5-0.9) 11/15/21 21:11 GFR Calculation 110.2 mL/min (90-130) 11/15/21 21:11 Glucose 127 mg/dL (65-115) H 11/15/21 21:11 Calculated Osmolality 286 mOsm/kg (285-295) 11/15/21 21:11 Calcium 10.0 mg/dL (8.5-10.5) 11/15/21 21:11 Total Bilirubin 0.6 mg/dL (0.15-1.2) 11/15/21 21:11 AST 47 U/L (0-32) H 11/15/21 21:11 ALT 36 U/L (0-33) H 11/15/21 21:11 Alkaline Phosphatase 131 IU/L (35-105) H 11/15/21 21:11 Troponin T Baseline 8 ng/L (0-10) 11/15/21 21:11 Troponin T 120 Minute 13.45 ng/L (0-10) H 11/15/21 23:10 Delta Troponin T 5.45 ABS# (0-10) 11/15/21 23:10 Total Protein 7.5 g/dL (6.6-8.7) 11/15/21 21:11 Albumin 4.5 g/dL (3.5-5.2) 11/15/21 21:11 Globulin 3.0 g/dL (1.3-4.6) 11/15/21 21:11 Lipase 36 U/L (13-60) 11/15/21 21:11 TSH 0.94 uIU/mL (0.27-4.20) 11/15/21 21:11 Free T4 1.25 ng/dL (0.82-1.77) 11/15/21 21:11 Urine Color Yellow (Yellow) 11/15/21 22:52 Urine Appearance Clear (CLEAR) 11/15/21 22:52 Urine pH 5 (5-7) 11/15/21 22:52 Ur Specific [place] 1.005 (1.005-1.030) 11/15/21 22:52 Urine Protein Neg (Negative) 11/15/21 22:52 Urine Glucose (UA) Norm (Normal) 11/15/21 22:52 Urine Ketones Negative (Negative) 11/15/21 22:52 Urine Blood Neg (Negative) 11/15/21 22:52 Urine Nitrate Negative (Negative) 11/15/21 22:52 Urine Bilirubin Neg (Negative) 11/15/21 22:52 Urine Urobilinogen Norm mg/dL (Negative) 11/15/21 22:52 Ur Leukocyte Esterase Negative (Negative) 11/15/21 22:52 Coronavirus 229E (PCR) Not detected (NOT DETECT) 11/15/21 20:40 SARS-CoV-2 (PCR) Not detected (NOT DETECT) 11/15/21 20:40 Critical Care Time Critical Care Time: Critical Care Time: Yes Total Critical Care Time: 36 Attestation: This case had a high probability of a clinically significant, sudden, or life threatening deterioration of this patient's condition which required my full and direct attention, intervention and personal management. This is independent of any procedures performed on the patient. Discharge Plan Discharge Patient Disposition: Admitted As Inpatient Clinical Impression: Hypertensive crisis Condition: Serious Prescriptions: No Action (DME) wheelchair See Rx Instructions .Route .MEDSUPPLY Qty: 1 0RF Rx Instructions: patient needs replacement chair. (DME) STANDARD WHEELCHAIR See Rx Instructions .Route .MEDSUPPLY Qty: 1 0RF Rx Instructions: As directed lorazepam [Ativan] 0.5 mg tablet 0.5 mg PO TID PRN (Reason: anxiety) Qty: 10 0RF furosemide 20 mg tablet 20 mg PO DAILY PRN (Reason: edema) Qty: 30 0RF morphine 30 mg tablet extended release 30 mg PO Q12H 30 Days Qty: 60 0RF Rx Instructions: at 00/2000 pantoprazole 40 mg tablet,delayed release (DR/EC) 40 mg PO BID@08,20 Qty: 90 3RF OneTouch Ultra Blue Test Strip Strip See Rx Instructions .ROUTE .COMPLEX Qty: 100 0RF Dose Instruction: TEST BLOOD SUGAR TWICE DAILY DX E11.9 Rx Instructions: TEST BLOOD SUGAR TWICE DAILY DX E11.9 (DME) wheelchair See Rx Instructions .Route .MEDSUPPLY Qty: 1 0RF Rx Instructions: As directed Zenpep 40,000-126,000- 168,000 unit capsule,delayed release(DR/EC) 1 cap PO TID Qty: 90 8RF Rx Instructions: administer with meals and/or snacks Briviact 25 mg tablet 25 mg PO DAILY@08 Qty: 60 0RF tizanidine 4 mg tablet 8 mg PO TID PRN (Reason: muscle spasticity) 30 Days Qty: 180 3RF pantoprazole 40 mg tablet,delayed release (DR/EC) 40 mg PO BID@08,20 Qty: 90 3RF ondansetron HCl 4 mg tablet 4 mg PO Q8H PRN (Reason: nausea and vomiting) Qty: 20 0RF zolpidem 5 mg tablet 5 mg PO BEDTIME PRN (Reason: Sleep) Qty: 30 3RF Benadryl 25 mg Capsule 25 mg PO Q6H PRN (Reason: Allergy Symptoms) 0RF Miralax 17 gram/dose Powder 17 g PO QAM 0RF tizanidine 4 mg Tablet 4 mg PO TID PRN (Reason: Spasms) Qty: 90 0RF metoprolol succinate 100 mg Tablet Extended Release 24 Hr 200 mg PO DAILY Qty: 90 3RF spironolactone 25 mg Tablet 25 mg PO DAILY Qty: 90 3RF amlodipine 10 mg Tablet 10 mg PO DAILY Qty: 90 3RF Zenpep 5,000-17,000- 24,000 unit Capsule,Delayed Release(Dr/Ec) 1 ea PO TIDWM Qty: 90 0RF Referrals: Yony Otero MD [Primary Care Provider] - Coding Level of Care Code ED Camera Technician for g Fwd Exam Comprehensive
--- NOTE | 2021-11-15 20:11 | XRR_ITS ---
PROCEDURE INFORMATION: Exam: XR Chest Exam date and time: 11/15/2021 8:11 PM Age: 41 years old Clinical indication: Patient HX: SOB chest pain today TECHNIQUE: Imaging protocol: XR of the chest. Views: 1 view. COMPARISON: CR (CHEST, ) 10/25/2021 8:02 PM FINDINGS: Lungs: Unremarkable. No consolidation. Pleural spaces: Unremarkable. No pleural effusion. No pneumothorax. Heart/Mediastinum: Unremarkable. No cardiomegaly. Bones/joints: Unremarkable. XR/XR chest 1V portable [id number] IMPRESSION: No acute findings.
--- NOTE | 2021-11-15 20:12 | ECG_ITS ---
[facility] Test Date: 2021-11-15 Pat Name: Eleanor Ragland Department: Room: Gender: Female Plate Developer: : 1980 Requested By: Paramjit Duong Order Number: [id number] Dianna MD: Rahul Zambrano M.D. 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 [email or web address]
[2021-11-15 21:13] VITALS: RESP 21
[2021-11-15] MEDS: morphine 4 mg/mL SDV 1 mL 2 MG IVP (21:13)
[2021-11-15] MEDS: sodium chloride 0.9% 1,000 ML 999 ML IV ×2 (21:14→21:59)
[2021-11-15] MEDS: famotidine 20 mg/2 mL INJ IVP (21:14)
[2021-11-15 21:17] LABS: Basophils # 0.1 10^3/uL (0.0-0.1); Basophils % 0.8 %; Eosinophils # 0.1 10^3/uL (0.0-0.8); Eosinophils % 0.6 %; Hematocrit 46.5 % (37.0-47.0); Hemoglobin 15.3 g/dL (11.5-15.3); Lymphocytes # 3.5 10^3/uL (0.8-4.8); Mean Corpuscular HGB Conc 32.9 g/dL (30.0-36.0); Mean Corpuscular Hemoglobin 28.7 pg (28.0-34.0); Mean Corpuscular Volume 87.2 fl (81-99); Mean Platelet Volume 11.5 fL (7.4-10.4); Monocytes % 7.1 %; Neutrophils # 8.77 10^3/uL (1.8-7.7); Neutrophils % 65.1 %; Nucleated Red Blood Cells % 0 %; Platelet Count 307 10^3/cmm (130-400); Red Blood Count 5.33 10^6/uL (4.1-5.3); Red Cell Distribution Width 12.7 % (12.1-15.1); White Blood Count 13.5 10^3/uL (4.0-10.0)
--- NOTE | 2021-11-15 21:32 | CTR_ITS ---
PROCEDURE INFORMATION: Exam: CTA Abdomen and Pelvis With Contrast Exam date and time: 11/15/2021 9:32 PM Age: 41 years old Clinical indication: Shortness of breath; Prior surgery; Surgery date: 6+ months; Additional info: Eval for pathologies TECHNIQUE: Imaging protocol: Computed tomographic angiography of the abdomen and pelvis with contrast material. 3D rendering (Not supervised by radiologist): MIP and/or 3D reconstructed images were created by the technologist. Radiation optimization: All CT scans at this facility use at least one of these dose optimization techniques: automated exposure control; mA and/or kV adjustment per patient size (includes targeted exams where dose is matched to clinical indication); or iterative reconstruction. Contrast material: VISI; Contrast volume: 95 ml; Contrast route: INTRAVENOUS (IV); COMPARISON: CT abdomen pelvis w con* [id number] 10/26/2021 3:16 AM RADIATION DOSE METRICS: Total DLP (mGy-cm): 1984.36 FINDINGS: Aorta: No aortic aneurysm. No aortic dissection. Celiac trunk and mesenteric arteries: No occlusion or significant stenosis. Renal arteries: No occlusion or significant stenosis. Right iliac arteries: No occlusion or significant stenosis. Left iliac arteries: No occlusion or significant stenosis. Liver: Hepatic steatosis suspected. Gallbladder and bile ducts: Cholecystectomy. Pancreas: Minimal edema in the region of the pancreatic head with several prominent subcentimeter lymph nodes, please correlate for possible pancreatitis. Spleen: Unremarkable. No splenomegaly. Adrenal glands: Left adrenal 18 mm low-density lesion suggestive of a benign adenoma. Kidneys and ureters: Unremarkable. No solid mass. No hydronephrosis. Stomach and bowel: Constipation. Appendix: No evidence of appendicitis. Intraperitoneal space: Unremarkable. No free air. No significant fluid collection. Lymph nodes: Unremarkable. No enlarged lymph nodes. Urinary bladder: Unremarkable. No mass. Reproductive: Unremarkable as visualized. Bones/joints: No acute fracture. No dislocation. Soft tissues: Unremarkable. CT/CT angio chest abdomen pelvis IMPRESSION: 1. Minimal edema in the region of the pancreatic head with several prominent subcentimeter lymph nodes, please correlate for possible pancreatitis. 2. Cholecystectomy. 3. Hepatic steatosis suspected. 4. Left adrenal 18 mm low-density lesion suggestive of a benign adenoma. 5. Constipation.
[2021-11-15 21:37] LABS: Troponin(5th) Baseline 8 ng/L (0-10)
[2021-11-15 22:05] LABS: Alanine Aminotransferase 36 U/L (0-33); Albumin Level 4.5 g/dL (3.5-5.2); Alkaline Phosphatase 131 IU/L (35-105); Aspartate Amino Transferase 47 U/L (0-32); Blood Urea Nitrogen 8 mg/dL (6-20); Carbon Dioxide 20 mmol/L (22-29); Chloride 103 mmol/L (98-107); Creatinine Clr Calc Pharmacy 113.2604; Glomerular Filtration Rate 110.2 mL/min (90-130); Glucose 127 mg/dL (65-115); Lipase 36 U/L (13-60); Osmolality Calculated 286 mOsm/kg (285-295); Sodium 138 mmol/L (136-145); Total Bilirubin 0.6 mg/dL (0.15-1.2); Total Protein 7.5 g/dL (6.6-8.7)
--- NOTE | 2021-11-15 22:12 | ECG_ITS ---
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 Measurements Intervals Stover Rate: 136 P: 69 MS: 139 QRS: -1 QRSD: 85 T: 153 QT: 289 QTc: 436 Interpretive Statements SINUS TACHYCARDIA LEFT VENTRICULAR HYPERTROPHY AND ST-T CHANGE [VOLTAGE CRITERIA PLUS ST/T ABNORMALITY] ANTERIOR MYOCARDIAL INFARCTION , PROBABLY OLD [40+ ms Q WAVE AND/OR ST/T ABNORMALITY IN V3/V4] POSSIBLE INFERIOR MYOCARDIAL INFARCTION , PROBABLY OLD [30 ms Q WAVE IN II/aVF] Compared to ECG 11/15/2021 20:40:20 Myocardial infarct finding now present ST (T wave) deviation still present Electronically Signed On 11-16-2021 8:56:59 VOICE OVER ARTIST by Rahul Zambrano M.D. [id number]
[2021-11-15] MEDS: iodixanol 320 mg/mL 100mL Btl IV (22:33)
[2021-11-15 22:34] LABS: Adenovirus Not Detected (NOT DETECT); Chlamydia Pneumoniae Not Detected (NOT DETECT); Coronavirus 229E,HKU1,NL63,OC4 Not Detected (NOT DETECT); Human Metapneumovirus Not Detected (NOT DETECT); Human Rhinovirus/Enterovirus Not Detected (NOT DETECT); Influenza A Not Detected (NOT DETECT); Influenza A H1 Not Detected (NOT DETECT); Influenza A H1-2009 Not Detected (NOT DETECT); Influenza A H3 Not Detected (NOT DETECT); Influenza B Not Detected (NOT DETECT); Mycoplasma Pneumoniae Not Detected (NOT DETECT); Parainfluenza Virus Type 1 Not Detected (NOT DETECT); Parainfluenza Virus Type 2 Not Detected (NOT DETECT); Parainfluenza Virus Type 3 Not Detected (NOT DETECT); Parainfluenza Virus Type 4 Not Detected (NOT DETECT); Respiratory Syncytial Virus A Not Detected (NOT DETECT); Respiratory Syncytial Virus B Not Detected (NOT DETECT); SARS-COV-2 Not Detected (NOT DETECT)
[2021-11-15 22:38] VITALS: BP 210/99; PULSE 138; RESP 22; O2SAT 96
[2021-11-15] MEDS: ondansetron 2 mg/ML SDV 2 mL 4 MG IVP (22:48)
[2021-11-15 22:55] LABS: Add Urine Microscopic? NO; Charge for UA Resulting for Rev
[2021-11-15 22:59] LABS: Bilirubin Urine Neg (Negative); Blood Urine Neg (Negative); Glucose Urine UA Norm (Normal); Ketones Urine Negative (Negative); Leukocyte Esterase Urine Negative (Negative); Nitrate Urine Negative (Negative); Protein Urine Neg (Negative); Specific Gravity, Urine 1.005 (1.005-1.030); Urine Appearance Clear (CLEAR); Urine Color Yellow (Yellow); Urobilinogen Urine Norm (Negative); pH Urine 5 (5-7)
[2021-11-15 23:13] VITALS: RESP 26
[2021-11-15] MEDS: HYDROmorphone 1 mg/mL INJ 1 mL IVP (23:13)
[2021-11-15] MEDS: nicardipine 20 MG/200 ML PREMIX 50 MG IV (23:38)
[2021-11-15] MEDS: labetalol 5 mg/mL SDV 20mL 20 MG IVP (23:44)
[2021-11-15 23:47] VITALS: BP 157/78; PULSE 111; RESP 15; O2SAT 93
[2021-11-15 23:47] LABS: Troponin 5 2HR 13.45 ng/L (0-10)
[2021-11-15 23:49] LABS: Troponin 5 2HR Delta 5.45 ABS# (0-10)
[2021-11-16] VITALS (57 sets, daily range): BP systolic 89–188; BP diastolic 50–104; PULSE 70–107; RESP 10–35; TEMP 35.7–36.9; O2SAT 92–100
[2021-11-16] MEDS: diphenhydrAMINE 50 mg/mL SDV 1mL IVP (00:02)
[2021-11-16] MEDS: LORazepam 2 mg/mL INJ 1 mL 1 MG IVP (00:09)
[2021-11-16] MEDS: racepinephrine 0.5 mL Neb INHALATION (00:12)
[2021-11-16 00:39] LABS: Free T4 Free Thyroxine 1.25 ng/dL (0.82-1.77); Thyroid Stimulating Hormone 0.94 uIU/mL (0.27-4.20)
[2021-11-16] MEDS: esmolol drip 2,500 MG/250 ML PREMIX 23.13 MG IV (00:51)
--- NOTE | 2021-11-16 01:42 | P.HP_ITS ---
Providers/Chief Complaint Primary Care Provider: Yony Otero MD Chief Complaint: B/P problems History of Present Illness Eleanor Ragland is a 41 year old female with a past medical history of COVID-19, CHF, chronic pancreatitis, epilepsy, hypertension, who presents to [facility] due to low blood pressures. Patient tells me that this morning she had low blood pressures, she was not feeling well, she took all her blood pr essure medications, she felt nauseous, started to develop left-sided chest pain, and then her blood pressure started to elevate and would not go down, so she came to [facility] for evaluation. She also complains of low-grade fevers. She tells me that this is happened a couple times throughout the week. Denies any headache, no blurry vision, no paresthesias, no facial droop, slurring of words. Currently minimal chest pain. No abdominal pain. No bloody or black stools. No shortness of breath. Does report facial flushing with episodes, during the episode she tells me that it is almost like she is taking Magic mushrooms she feels a feeling of euphoria when her blood pressure is very high Review of Systems Const: Reports: fever(s); Denies: chills, fatigue or malaise Eyes: Denies: change in vision or blurry vision ENMT: Denies: nasal congestion Card: Reports: chest pain; Denies: palpitations or syncope Resp: Denies: dyspnea, productive cough, non-productive cough or wheezing GI: Denies: abdominal pain, nausea, vomiting, hematemesis, diarrhea, constipation, hematochezia or melena : Denies: flank pain, dysuria or urinary frequency Musc: Denies: neck pain or back pain Skin/Breast: Denies: rash Neuro: Denies: headache(s), dizziness or vertigo Psych: Reports: anxiety Endo: Denies: polyuria or polydipsia Medications/Allergies Home Medications Medication Instructions Recorded Confirmed Last Taken Type blood sugar diagnostic (OneTouch See Rx Instructions .ROUTE 03/03/21 11/13/21 Unknown Rx Ultra Blue Test Strip) .COMPLEX #100 ea wheelchair #1 ea 03/26/21 11/13/21 Unknown Rx wheelchair #1 ea 05/28/21 11/13/21 Unknown Rx STANDARD WHEELCHAIR #1 ea 05/29/21 11/13/21 Unknown Rx kkgpie-gnduilda-wfddfeg 1 cap PO TID #90 cap 08/03/21 11/13/21 Unknown Rx 40,000-126,000-168,000 unit capsule, delay rel (Zenpep) brivaracetam 25 mg tablet 25 mg PO DAILY@08 #60 tab 09/24/21 11/13/21 Unknown Rx (Briviact) pantoprazole 40 mg tablet,delayed 40 mg PO BID@08,20 #90 tab 09/30/21 11/13/21 Unknown Rx release tizanidine 4 mg tablet 8 mg PO TID PRN 30 Days #180 tab 09/30/21 11/13/21 Unknown Rx lorazepam 0.5 mg tablet (Ativan) 0.5 mg PO TID PRN #10 tab 10/15/21 11/13/21 Unknown Rx ondansetron HCl 4 mg tablet 4 mg PO Q8H PRN #20 tab 10/22/21 11/13/21 Unknown Rx diphenhydramine HCl 25 mg capsule 25 mg PO Q6H PRN 10/26/21 11/13/21 Unknown History (Benadryl) polyethylene glycol 3350 17 17 g PO QAM 10/26/21 11/13/21 Unknown History gram/dose oral powder (Miralax) amlodipine 10 mg tablet 10 mg PO DAILY #90 tab 11/01/21 11/13/21 Unknown Rx wzgnib-gftwyutf-zzontuz 1 ea PO TIDWM #90 cap 11/01/21 11/13/21 Unknown Rx 5,000-17,000-24,000 unit capsule, delayed rel (Zenpep) metoprolol succinate 100 mg 200 mg PO DAILY #90 tab 11/01/21 11/13/21 Unknown Rx tablet,extended release 24 hr spironolactone 25 mg tablet 25 mg PO DAILY #90 tab 11/01/21 11/13/21 Unknown Rx tizanidine 4 mg tablet 4 mg PO TID PRN #90 tab 11/01/21 11/13/21 Unknown Rx zolpidem 5 mg tablet 5 mg PO BEDTIME PRN #30 tab 11/09/21 11/13/21 Unknown Rx morphine 30 mg tablet,extended 30 mg PO Q12H 30 Days #60 tab 11/11/21 11/13/21 Unknown Rx release pantoprazole 40 mg tablet,delayed 40 mg PO BID@08,20 #90 tab 11/11/21 11/13/21 Unknown Rx release furosemide 20 mg tablet 20 mg PO DAILY PRN #30 tab 11/13/21 11/13/21 Unknown Rx Allergies Allergy/AdvReac Type Severity Reaction Status Date / Time canagliflozin [From Invokana] Allergy Severe abdominal Verified 11/13/21 10:18 pain aspirin Allergy Unknown Verified 11/13/21 10:18 ketorolac [From Toradol] Allergy Unknown Verified 11/13/21 10:18 nicardipine Allergy ALGY-Difficulty Verified 11/15/21 23:53 Breathing tramadol [From Ultram] Allergy Unknown Verified 11/13/21 10:18 PFSH Acute PFSH: Medical History Adrenal mass CHF (congestive heart failure) Chronic pain of lower extremity, bilateral Chronic pancreatitis 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 Constipation Constipation Diabetes Epilepsy Essential (primary) hypertension GI bleed Hypertensive urgency Primary osteoarthritis Recurrent vomiting Surgical History History of bilateral knee replacement History of cholecystectomy History of D&C 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 Family History Grandmother Cancer Lung disease Stroke Mother Lung disease Other A-fib CHF (congestive heart failure) Social History Smoking and tobacco status: never smoked Alcohol intake: never Household members: spouse Housing: House Marital status: Current occupational status: disabled History of recent travel: No Vitals/I&O/Wt Last Vital Signs Temp 99.3 F 11/15/21 19:44 Pulse 96 11/16/21 01:30 Resp 10 L 11/16/21 01:30 BP 166/72 11/16/21 01:30 Pulse Ox 96 11/16/21 01:30 11/15/21 11/15/21 11/16/21 14:59 22:59 06:59 Intake Total 749.25 / 749.25 22.686 / 771.936 Balance 749.25 / 749.25 22.686 / 771.936 Weight last 48 hrs Weight 77.111 kg Physical Exam Const: COMMON NORMALS: no acute distress and patient oriented x3 HENMT: COMMON NORMALS: normocephalic HEAD & SCALP: normocephalic Neck/C-Spine: COMMON NORMALS: no JVD Resp: COMMON NORMALS: normal respiratory effort, No retractions, No use of accessory muscles and clear to auscultation bilaterally AUSCULTATION: clear to auscultation bilaterally Cardio: COMMON NORMALS: no JVD, regular rate, regular rhythm, S1 normal heart sound present and S2 normal heart sound present RATE: regular rate RHYTHM: regular rhythm HEART SOUNDS: S1 normal heart sound present and S2 normal heart sound present GI: COMMON NORMALS: Normal to inspection, nondistended, normoactive bowel sounds present, Soft to palpation, non-tender, No hepatosplenomegaly present, no masses and no bruits PALPATION: Yes Soft to palpation and Yes No hepatosplenomegaly present Extremity: COMMON NORMALS: capillary refill normal, no clubbing, cyanosis or edema, no calf tenderness and no pedal edema Neuro: COMMON NORMALS: patient oriented x3 Psych: COMMON NORMALS: mental status grossly normal Data : 11/15/21 21:11 11/15/21 21:11 A&P Assessment and plan (1) Hypertensive crisis: Status: Acute (2) Aortic regurgitation: Status: Acute (3) IHSS (idiopathic hypertrophic subaortic stenosis): Status: Acute (4) Labile hypertension: Status: Acute (5) Exocrine pancreatic insufficiency: Status: Acute (6) Essential (primary) hypertension: Status: Acute Plan Hypertensive emergency -Blood pressure is improved with esmolol drip, currently blood pressures 140s over 90s -Continue home medications -I have added hydralazine Chest pain, no chest pain currently, likely second hypertensive urgency continue to monitor, serial troponins, serial EKGs Paroxysmal hypertension -Renin activity 1.67 -Aldosterone 6 -Plasma free metanephrines 33 -Total metanephrines elevated at 231 -CT scan shows left adrenal 18 mm -No evidence of renal artery stenosis -Possible pheochromocytoma? 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
[2021-11-16] MEDS: hyDRALAzine 10 mg Tablet PO ×3 (03:22→17:12)
[2021-11-16] MEDS: morphine ER (12 HR) 30 mg tablet PO ×2 (03:22→13:28)
[2021-11-16] MEDS: LORazepam 0.5 mg Tablet PO ×3 (03:23→20:03)
[2021-11-16] MEDS: enoxaparin 40 mg/0.4 mL Syringe SUBCUT (03:23)
[2021-11-16] MEDS: ondansetron 2 mg/ML SDV 2 mL 4 MG IVP ×2 (03:23→23:22)
[2021-11-16] MEDS: tizanidine 4 mg Tablet PO ×2 (04:48→17:12)
[2021-11-16] MEDS: esmolol drip 2,500 MG/250 ML PREMIX 46.27 MG IV ×2 (05:42→10:42)
[2021-11-16] MEDS: pantoprazole DR 40 mg Tablet PO ×2 (08:21→20:03)
[2021-11-16] MEDS: spironolactone 25 mg Tablet PO (08:23)
[2021-11-16] MEDS: amlodipine 10 mg Tablet PO (08:24)
[2021-11-16] MEDS: acetaminophen 325 mg Tablet 650 MG PO ×3 (08:52→23:22)
[2021-11-16] MEDS: lipase-protease-amylase Capsule 1 EACH PO ×3 (09:08→17:12)
[2021-11-16] MEDS: metoprolol tartrate 50 mg Tablet PO ×2 (09:40→20:03)
[2021-11-16] MEDS: morphine IR 15 mg Tablet PO (09:41)
--- NOTE | 2021-11-16 09:48 | PC.NURSE ---
PATIENT PLACED ON CONTINUOUS BEDSIDE CARDIAC, BP AND O2 MONITOR.
[2021-11-16] MEDS: BRIVARACETAM 25 MG 25 EACH PO (10:24)
[2021-11-16 11:57] LABS: Glucose Point of Care 187 mg/dL (70-110)
--- NOTE | 2021-11-16 13:18 | PC.NURSE ---
Patient arrived to floor via stretcher. Patient alert and oriented. Patient arrived on Esmolol gtt. Blood pressures are being monitored Q5min. Patient and spouse have been oriented to room and call stout use. Nurse will continue to monitor.
--- NOTE | 2021-11-16 14:49 | PC.NURSE ---
24 hour urine test started at 1445.
[2021-11-16 16:37] LABS: Glucose Point of Care 210 mg/dL (70-110)
--- NOTE | 2021-11-16 19:00 | P.CONIM_ITS ---
Providers/Reason For Consult Consulting Physician/Specialty*: Dr. Espitia, cardiology Reason for Consult*: Transesophageal echocardiogram to assess aortic regurgitation Attending Physician: Elisha Edward MD Primary Care Provider: Yony Otero MD History of Present Illness History of Present Illness Eleanor Ragland is a 41 year old female with complex past medical history. She has hypertension, congestive heart failure, history of seizure, sobesity, obstructive sleep apnea chronic pain syndrome, history of pancreatitis, history of small adenoma and adrenal gland, chronic abdominal pain nausea and vomiting and chronic narcotic use. She also has history of clubfoot and congenital hip dislocation for which she has undergone several surgeries surgical procedures. As far as her cardiac history is concerned , she saw Dr. Sandy for aortic regurgitation but was asymptomatic at the time. She was also found to have marked left ventricular hypertrophy with left ventricular outflow tract gradient with concern for hypertrophic cardiomyopathy. In her last hospitalization she w as seen by Dr. Brito about 3 weeks back for low-grade fever abdominal pain nausea vomiting diarrhea and accelerated hypertension. She was managed for her labile hypertension and plan was to do transesophageal echocardiogram to assess her aortic regurgitation as an outpatient. She came back to the ER on 15 November with blood pressure running low at times and then high at times at home with symptom of not feeling well nauseous as well as right upper abdominal discomfort. When she has these episodes of high blood pressure she feels flushed, gets disoriented. She also describes difficulty wa lking around and she feels she bounces off the bahena. Blood pressure on arrival was 244/104 mmHg and she was on esmolol drip for some time. Patient is accompanied by her Vishnu who used to work as an EMT and both of them are upset because of lack of answers. There is no family history of sudden cardiac . Father when patient was 17 due to drug related complications. Mother with history of congestive heart failure and atrial fibrillation. Maternal grand mother with history of ND and CABG x4. She has a half sister who she is not in touch with. Review of Systems Const: Reports: fever(s); Denies: chills, fatigue or malaise Eyes: Denies: change in vision or blurry vision ENMT: Denies: nasal congestion Card: Reports: chest pain; Denies: palpitations or syncope Resp: Denies: dyspnea, productive cough, non-productive cough or wheezing GI: Denies: abdominal pain, nausea, vomiting, hematemesis, diarrhea, constipation, hematochezia or melena : Denies: flank pain, dysuria or urinary frequency Musc: Denies: neck pain or back pain Skin/Breast: Denies: rash Neuro: Denies: headache(s), dizziness or vertigo Psych: Reports: anxiety Endo: Denies: polyuria or polydipsia Medications/Allergies Home Medications Medication Instructions Recorded Confirmed Last Taken Type wheelchair #1 ea 03/26/21 11/16/21 Unknown Rx wheelchair #1 ea 05/28/21 11/16/21 Unknown Rx STANDARD WHEELCHAIR #1 ea 05/29/21 11/16/21 Unknown Rx qdvnis-pmaizury-zrgtwce 1 cap PO TID #90 cap 08/03/21 11/16/21 Unknown Rx 40,000-126,000-168,000 unit capsule, delay rel (Zenpep) brivaracetam 25 mg tablet 25 mg PO DAILY@08 #60 tab 09/24/21 11/16/21 Unknown Rx (Briviact) tizanidine 4 mg tablet 8 mg PO TID PRN 30 Days #180 tab 09/30/21 11/16/21 Unknown Rx ondansetron HCl 4 mg tablet 4 mg PO Q8H PRN #20 tab 10/22/21 11/16/21 Unknown Rx diphenhydramine HCl 25 mg capsule 25 mg PO Q6H PRN 10/26/21 11/16/21 Unknown History (Benadryl) polyethylene glycol 3350 17 17 g PO QAM PRN 10/26/21 11/16/21 Unknown History gram/dose oral powder (Miralax) amlodipine 10 mg tablet 10 mg PO DAILY #90 tab 11/01/21 11/16/21 Unknown Rx zolpidem 5 mg tablet 5 mg PO BEDTIME PRN #30 tab 11/09/21 11/16/21 Unknown Rx morphine 30 mg tablet,extended 30 mg PO Q12H 30 Days #60 tab 11/11/21 11/16/21 Unknown Rx release pantoprazole 40 mg tablet,delayed 40 mg PO BID@08,20 #90 tab 11/11/21 11/16/21 Unknown Rx release furosemide 20 mg tablet 20 mg PO DAILY PRN #30 tab 11/13/21 11/16/21 Unknown Rx metoprolol succinate 100 mg 50 mg PO DAILY 11/16/21 11/16/21 Unknown History tablet,extended release 24 hr spironolactone 25 mg tablet 12.5 mg PO BID 11/16/21 11/16/21 Unknown History Allergies Allergy/AdvReac Type Severity Reaction Status Date / Time canagliflozin [From Invokana] Allergy Severe abdominal Verified 11/13/21 10:18 pain aspirin Allergy Unknown Verified 11/13/21 10:18 ketorolac [From Toradol] Allergy Unknown Verified 11/13/21 10:18 nicardipine Allergy ALGY-Difficulty Verified 11/15/21 23:53 Breathing tramadol [From Ultram] Allergy Unknown Verified 11/13/21 10:18 Current Medications Generic Name Dose Route Start Last Admin Trade Name Freq PRN Reason Stop Dose Admin Acetaminophen 650 mg 11/16/21 01:51 11/16/21 18:50 Acetaminophen 325 Mg Tablet PO 650 mg Q6H PRN Administration Mild/Mod Pain Or Temp >/= 101 Amlodipine Besylate 10 mg 11/16/21 09:00 11/16/21 08:24 Amlodipine 10 Mg Tablet PO 10 mg DAILY LEANDRA Administration Lipase/Protease/Amylase 1 each 11/16/21 08:00 11/16/21 17:12 Wzxtbb-Pwivqldb-Fgmivko Capsule PO 1 each TIDWM LEANDRA Administration Enoxaparin Sodium 40 mg 11/16/21 03:30 11/16/21 03:23 Enoxaparin 40 Mg/0.4 Ml Syringe SUBCUT 40 mg Q24H LEANDRA Administration Hydralazine HCl 10 mg 11/16/21 01:51 11/16/21 17:12 Hydralazine 10 Mg Tablet PO 10 mg Q8H LEANDRA Administration Esmolol HCl 2,500 mg in 250 mls @ 0 mls/hr 11/15/21 23:45 11/16/21 16:00 Brevibloc Drip IV 0 mcg/kg/min .Q0M LEANDRA 0 mls/hr Titration Protocol Per Protocol Lorazepam 0.5 mg 11/16/21 01:51 11/16/21 12:53 Lorazepam 0.5 Mg Tablet PO 0.5 mg TID PRN Administration anxiety Metoprolol Tartrate 50 mg 11/16/21 09:00 11/16/21 09:40 Metoprolol Tartrate 50 Mg Tablet PO 50 mg BID@0900,2100 LEANDRA Administration Morphine Sulfate 30 mg 11/16/21 01:51 11/16/21 13:28 Morphine Er (12 Hr) 30 Mg Tablet PO 30 mg Q12H LEANDRA Administration Non-Formulary Medication 25 mg 11/16/21 08:00 11/16/21 10:24 Brivaracetam [Briviact] PO 25 mg DAILY@08 LEANDRA Administration Ondansetron HCl 4 mg 11/16/21 01:51 11/16/21 03:23 Ondansetron 2 Mg/Ml Sdv 2 Ml IVP 4 mg Q8H PRN Administration vomiting, or N/V if npo Pantoprazole Sodium 40 mg 11/16/21 08:00 11/16/21 08:[address] 40 Mg Tablet PO 40 mg BID@08,20 LEANDRA Administration Spironolactone 25 mg 11/16/21 09:00 11/16/21 08:23 Spironolactone 25 Mg Tablet PO 25 mg DAILY LEANDRA Administration Tizanidine HCl 4 mg 11/16/21 01:51 11/16/21 17:12 Tizanidine 4 Mg Tablet PO 4 mg TID PRN Administration Spasms PFSH Acute PFSH: Medical History (Updated 11/17/21 @ 08:54 by Elisha Edward MD) Adrenal mass CHF (congestive heart failure) Chronic pain of lower extremity, bilateral Chronic pancreatitis 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 Primary osteoarthritis Recurrent vomiting Surgical History History of bilateral knee replacement History of cholecystectomy History of D&C 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 Family History Grandmother Cancer Lung disease Stroke Mother Lung disease Other A-fib CHF (congestive heart failure) Social History Smoking and tobacco status: never smoked Alcohol intake: never Household members: spouse Housing: House Marital status: Current occupational status: disabled History of recent travel: No Female Reproductive History: Date of last menstrual period: 11/02/21 Vitals/I&O/Wt Last Vital Signs Temp 98.2 F 11/16/21 15:24 Pulse 90 11/16/21 16:35 Resp 19 H 11/16/21 16:35 BP 125/84 11/16/21 16:35 Pulse Ox 96 11/16/21 16:35 11/16/21 11/16/21 11/16/21 06:59 14:59 22:59 Intake Total 230.130 / 979.380 412.958 / 412.958 272.122 / 685.080 Balance 230.130 / 979.380 412.958 / 412.958 272.122 / 685.080 Weight last 48 hrs Weight 170 lb Physical Exam Narrative: GENERAL: Obese woman laying in bed in no acute distress HEENT: No pallor or icterus. NECK: No JVD. No carotid bruit. CARDIOVASCULAR SYSTEM: S1-S2 regular. No murmur. RESPIRATORY SYSTEM: Chest clear to auscultation. No wheezes rhonchi or rubs heard. No use of accessory muscles. ABDOMEN: Soft, and nondistended. Right upper quadrant tenderness present, normal bowel sounds present. EXTREMITIES: No cyanosis or clubbing. [No edema]. No signs of chronic venous insufficiency. CLINICAL NURSING INSTRUCTOR: Patient is alert oriented ?3. No focal neurological deficits. Cranial nerves intact. [] SKIN: Normal turgor and temperature. No breakdown, rash or nail changes noted. [] PSYCH: Normal insight and judgment. Urinary Catheter Management: Preston: Cath Placed During This Visit: no Data : 11/17/21 02:10 11/17/21 02:10 EKG 1: My Interpretation: Sinus tachycardia left ventricle hypertrophy with secondary ST-T wave changes and possible old anterior myocardial infarction. EKG computer-generated impression: Other data: Transthoracic echocardiogram 10 September 2017 CONCLUSIONS 1. Normal left ventricular cavity size. Asymmetric septal hypertrophy (IVSd = 1.8, LVPWd=1.4; IVSd/LVPWd=1.3). Vigorous left ventricular systolic function estimated at 70 %. Although no diagnostic regional wall motion abnormality was identified, this possibility cannot be completely excluded based on this study. Grade I/IV diastolic dysfunction (abnormal relaxation filling pattern), mildly elevated filling pressures. 2. Normal right ventricular size and systolic function. 3. Upper normal left atrial size. 4. Structurally normal mitral valve. Systolic anterior motion of anterior mitral valve leaflet noted. No mitral valve stenosis. At least moderate mitral valve regurgitation. 5. Aortic valve not well visualized. Possibly tricuspid aortic valve. Increased velocity through aortic valve along with flow acceleration noted in left ventricular outflow tract. Dynamic left ventricular outflow tract obstruction with peak gradient of 46 mm Hg. No aortic valve stenosis. At least moderate aortic valve regurgitation. 6. The above findings are highly suggestive of hypertrophic obstructive cardiomyopathy phenotype. Transthoracic echocardiogram 28 October 2021 CONCLUSIONS ?Normal left ventricular size and systolic function, EF 64 %. ?Mild left ventricular hypertrophy. No regional wall motion ?abnormalities. Grade I/IV diastolic dysfunction (abnormal ?relaxation filling pattern), normal to mildly elevated filling ?pressures. ?Moderately severe aortic valve regurgitation. ?Features of IHSS with resting gradient of 31 mmHg, going up to ?143 millimeters of mercury with Valsalva ?Mild aortic valve stenosis, mean gradient 17.7 mmHg, PURNIMA 1.6 ?cm squared.? This could be an underestimation because of the IHSS ?Mildly increased left atrial size. ?Mild mitral valve regurgitation. ?Trace tricuspid valve regurgitation.? ?Mild pulmonary hypertension. Estimated pulmonary artery peak ?systolic pressure was 43 mmHg ?There is no pericardial effusion. ?There are no intracardiac masses. ?Compared to the study from 10/20/2020, there is no significant ?change in the resting gradient across the LV outflow tract. Chest X-Ray 11/15/21 20:11 IMPRESSION: No acute findings. Chest/Abdomen/Pelvis CTA 11/15/21 21:32 IMPRESSION: 1. Minimal edema in the region of the pancreatic head with several prominent subcentimeter lymph nodes, please correlate for possible pancreatitis. 2. Cholecystectomy. 3. Hepatic steatosis suspected. 4. Left adrenal 18 mm low-density lesion suggestive of a benign adenoma. 5. Constipation. A&P Assessment and plan (1) Labile hypertension: Blood pressure is much better controlled now. Status: Acute (2) Aortic regurgitation: Plan for RUTHIE in the morning to assess aortic regurgitation. -Continue current meds Status: Acute (3) IHSS (idiopathic hypertrophic subaortic stenosis): Concern for hypertrophic cardiomyopathy based on last echoes -We will assess on RUTHIE. May benefit from cardiac MRI Status: Acute (4) CHF (congestive heart failure): Appears compensated Status: Acute Plan History of adrenal adenoma Chronic pancreatitis Gastroesophageal reflux disease History of seizures Thank you for allow me to participate in patient's care. Please feel free to call with questions or concerns. Coding Level of Care Code Acute Dry Pan Operator for Chg Fwd History Comprehensive Exam Comprehensive Medical Decision Making High Complexity Diagnoses Aortic regurgitation I35.1 IHSS (idiopathic hypertrophic subaortic stenosis) I42.1 Labile hypertension R09.89 CHF (congestive heart failure) I50.9
[2021-11-16] MEDS: zolpidem 5 mg Tablet PO (20:10)
[2021-11-16 20:14] LABS: Glucose Point of Care 212 mg/dL (70-110)
[2021-11-16 23:15] LABS: Glucose Point of Care 173 mg/dL (70-110)
[2021-11-17] VITALS (23 sets, daily range): BP systolic 107–149; BP diastolic 46–86; PULSE 58–85; RESP 13–22; TEMP 35.6–36.8; O2SAT 92–97
[2021-11-17] MEDS: tizanidine 4 mg Tablet PO ×3 (01:07→20:21)
[2021-11-17] MEDS: morphine ER (12 HR) 30 mg tablet PO (01:52)
[2021-11-17] MEDS: hyDRALAzine 10 mg Tablet PO (01:53)
[2021-11-17 02:33] LABS: Basophils % 0.2 %; Eosinophils % 0.1 %; Hematocrit 42.2 % (37.0-47.0); Hemoglobin 13.4 g/dL (11.5-15.3); Lymphocytes # 3.1 10^3/uL (0.8-4.8); Mean Corpuscular HGB Conc 31.8 g/dL (30.0-36.0); Mean Corpuscular Hemoglobin 28.9 pg (28.0-34.0); Mean Corpuscular Volume 91.1 fl (81-99); Mean Platelet Volume 11.9 fL (7.4-10.4); Monocytes % 6.9 %; Neutrophils # 9.88 10^3/uL (1.8-7.7); Neutrophils % 70.4 %; Nucleated Red Blood Cells % 0 %; Platelet Count 256 10^3/cmm (130-400); Red Blood Count 4.63 10^6/uL (4.1-5.3)
[2021-11-17 02:56] LABS: Alanine Aminotransferase 24 U/L (0-33); Albumin Level 3.8 g/dL (3.5-5.2); Alkaline Phosphatase 96 IU/L (35-105); Aspartate Amino Transferase 19 U/L (0-32); Blood Urea Nitrogen 10 mg/dL (6-20); Calcium 8.9 mg/dL (8.5-10.5); Carbon Dioxide 21 mmol/L (22-29); Chloride 106 mmol/L (98-107); Globulin 2.7 g/dL (1.3-4.6); Glomerular Filtration Rate 92.2 mL/min (90-130); Glucose 145 mg/dL (65-115); Magnesium 1.9 mg/dL (1.7-2.3); Osmolality Calculated 290 mOsm/kg (285-295); Sodium 139 mmol/L (136-145); Total Bilirubin 0.4 mg/dL (0.15-1.2); Total Protein 6.5 g/dL (6.6-8.7)
[2021-11-17 03:09] LABS: Anion Gap 16.7 (5-19); Potassium 4.7 mmol/L (3.5-5.1)
[2021-11-17] MEDS: oxyCODONE 5 mg IR Tab/Cap PO (03:36)
[2021-11-17] MEDS: enoxaparin 40 mg/0.4 mL Syringe SUBCUT (03:36)
[2021-11-17] MEDS: LORazepam 0.5 mg Tablet PO (03:37)
[2021-11-17 06:45] LABS: Glucose Point of Care 134 mg/dL (70-110)
--- NOTE | 2021-11-17 08:47 | PM.PN ---
Subjective Subjective: Yesterday after speaking with the patient I spoke with our professional golf tournament player Dr. Isaacs and Dr. Espitia experience planning strategist Dr. Kumar recommended 24-hour metanephrine, urine cortisol and then outpatient follow-up I spoke with experience planning strategist regarding transesophageal echo for evaluation of hocm and aortic regurgitation She has been kept n.p.o. since midnight Had 2 meetings with her yesterday to address the concerns #1 concern right now is transesophageal echo I did reassure them that there is no emergency however I have already spoken with the experience planning strategist and that is why she has been kept n.p.o. #2 need to transfer the patient At this point pheochromocytoma has not been diagnosed, with use of spironolactone the previous levels could be falsely elevated this was discussed with our professional golf tournament player here who recommended 24-hour urine studies and outpatient follow-up, there is no acute indication to transfer her for higher level of care at this point #3 pain management She does get morphine twice a day, for breakthrough pain:- oxycodone has been added #4 is very aggravated from previous admission and he is under the impression that communication was not appropriate as when they went to see Bonnie Francisco she had no clue about transesophageal echo Vitals/I&O/Wt Last Vital Signs Temp 96.0 F L 11/17/21 07:09 Pulse 65 11/17/21 07:09 Resp 19 H 11/17/21 07:09 BP 148/86 11/17/21 07:09 Pulse Ox 94 11/17/21 07:09 11/16/21 11/17/21 11/17/21 22:59 06:59 14:59 Intake Total 272.122 / 685.080 Output Total 500 / 500 1100 / 1600 Balance -227.878 / 185.080 -1100 / -914.920 Weight last 48 hrs Weight 77.111 kg Physical Exam Narrative: Patient was sleeping when entered room She did not complain of any pain Mild tenderness on deep palpation right lower quadrant and midepigastric region Abdomen is soft no signs of peritonitis Blood pressure stable She is saturating well on room air Looks well-hydrated Nonfocal neuro exam She is fixated about her transfer to another hospital No signs of edema Urinary Catheter Management: Preston: Cath Placed During This Visit: no Reason for Continuing Indwelling Catheter: Acute Urinary Retention or Obstruction Data : 11/17/21 02:10 11/17/21 02:10 A&P Assessment and plan (1) Hypertensive crisis: Status: Acute (2) Aortic regurgitation: Status: Acute (3) IHSS (idiopathic hypertrophic subaortic stenosis): Status: Acute (4) Exocrine pancreatic insufficiency: Status: Acute (5) Therapeutic opioid induced constipation: Status: Acute (6) Diabetes: Status: Acute (7) Chronic pain of lower extremity, bilateral: Status: Acute Plan Hypertensive crisis Blood pressure responded well to esmolol Esmolol drip has been weaned off since yesterday, blood pressure is stable After discussing case with Dr. Kumar we are doing 24-hour urine collection for urine cortisol and metanephrine, catecholamine levels, she requested these levels to be obtained after replenishment of potassium, potassium is 4.7 today She does have pancreatitis on CT however lipase has not high she will get oxycodone for breakthrough pain and morphine Lipase level to be trended With her hypertension, adrenal adenoma, pancreatitis, she might need more work-up to rule out MEN syndrome Previous head CT did not show any abnormalities She is not complaining of headache or vision changes at this point Aortic regurgitation and anterior septal motion Requested experience planning strategist Dr. Espitia for transesophageal echo She is n.p.o. today Recurrent pancreatitis, previous MRCP did not show any ductal dilation no pancreatic mass Left adrenal mass without significant change in the size 07/17/2020 CT abdomen measured left adrenal nodule as 19 mm MRCP finding 07/28/2020 ?lobulated cystic mass associated with the LEFT adrenal gland measures 17 x 14 mm. Atypical adenoma versus cyst. 11/15/2021 left adrenal 18 mm low-density lesion suggestive of a benign adenoma. Diabetes: Consistent carb diet once echo is done today Chronic pain syndrome patient takes morphine at home and does suffer from opiate-induced constipation We will keep her on senna S and bowel regimen Hepatic steatosis of liver, hepatomegaly Multiple family meetings conducted Attestations Medical Necessity Statement*: Continue medical management Time Spent in Patient Care: 15mins Coding Level of Care Code Acute Mobile Application Engineer for Chg Fwd Diagnoses Hypertensive crisis I16.9 Aortic regurgitation I35.1 IHSS (idiopathic hypertrophic subaortic stenosis) I42.1 Exocrine pancreatic insufficiency K86.81 Therapeutic opioid induced constipation K59.03; T40.2X5A Diabetes E11.9 Chronic pain of lower extremity, bilateral M79.604; M79.605; G89.29
[2021-11-17] MEDS: BRIVARACETAM 25 MG 25 EACH PO (08:48)
[2021-11-17] MEDS: amlodipine 10 mg Tablet PO (08:50)
[2021-11-17] MEDS: spironolactone 25 mg Tablet PO (08:50)
[2021-11-17] MEDS: pantoprazole DR 40 mg Tablet PO ×2 (08:50→20:21)
[2021-11-17] MEDS: metoprolol tartrate 50 mg Tablet PO ×2 (08:50→20:21)
[2021-11-17] MEDS: oxyCODONE 5 mg IR Tab/Cap 10 MG PO ×2 (09:04→14:58)
[2021-11-17 09:18] LABS: Lipase 15 U/L (13-60)
[2021-11-17 11:20] LABS: Glucose Point of Care 125 mg/dL (70-110)
[2021-11-17] MEDS: sodium chloride 0.9% 1,000 ML 100 ML IV (11:45)
--- NOTE | 2021-11-17 12:00 | USCV_ITS ---
Eleanor Ragalnd Age: 41 Gender: F : 1980 Exam Date: 11/17/2021 11:31 Ordering Phys: Sola Espitia MD ([email or web address]) Technologist: MATTIE Exam Location: [facility] [place] Indication: Suspected HCM, Aortic regurgitation BP: 132 / 65 HR: 62 Rhythm: Sinus Technical Quality: Adequate MEASUREMENTS (Male / Female) Normal Values 2D ECHO LV Diastolic Diameter PLAX 2.9 cm 4.2 - 5.9 / 3.9 - 5.3 cm LV Systolic Diameter PLAX 1.8 cm IVS Diastolic Thickness 1.1 cm 0.6 - 1.0 / 0.6 - 0.9 cm IVS Systolic Thickness 1.4 cm LVPW Diastolic Thickness 1.9 cm 0.6 - 1.0 / 0.6 - 0.9 cm LVPW Systolic Thickness 2.0 cm LVOT Diameter 1.5 cm LV Ejection Fraction 2D Teich 74.6 % LA Diameter 3.8 cm Aorta at Sinotubular Diameter 2.2 cm DOPPLER AV Peak Velocity 274.0 cm/s LVOT Peak Velocity 130.0 cm/s AV Area Cont Eq vti 0.8 cm squared AV Area Cont Eq pk 0.8 cm squared MV Peak Velocity 71.0 cm/s MV Area PHT 2.6 cm squared Mitral E to A Ratio 1.2 MV E' Velocity 73.0 cm/s PV Peak Velocity 144.0 cm/s RV Acceleration Time 0.1 s RV Ejection Time 0.3 s RV AcT/ET 0.4 Medications Patient given IV sedation by anesthesia service, for details please refer to the anesthesia report. Complications Intubation easy. Attempts x 1, No blood on probe post procedure. Patient tolerated procedure well. Proc. Components The patient was brought to the RUTHIE examination room in a fasting state after obtaining an informed consent. The RUTHIE probe was passed into the posterior pharynx , mid-esophagus, distal esophagus, and gastric fundus. FINDINGS Left Ventricle Normal left ventricular size, systolic function with no regional wall motion abnormalities. Left ventricular ejection fraction is estimated at 65-70%. Asymmetric left ventricular hypertrophy (basal septal hypertrophy with IVSd=1.8 cm, PWd= 1.2 cm). Right Ventricle Normal right ventricular size and systolic function. RVSP could not be calculated due to incomplete tricuspid regurgitation velocity profile. Right Atrium Normal right atrial size. Left Atrium Normal left atrial size. LA Appendage Normal left atrial appendage. Normal flow velocities in the left atrial appendage. No thrombus visualized in the left atrial appendage. IA Septum Normal interatrial septum. No patent foramen ovale. No evidence for an atrial septal defect. Mitral Valve Structurally normal mitral valve. No evidence of systolic anterior motion of anterior mitral leaflet. No mitral valve stenosis. No mitral valve stenosis. Trace mitral valve regurgitation. Aortic Valve Bicuspid aortic valve (type 1). Mild aortic valve stenosis, peak velocity 2.3 m/s, peak gradient 21 mmHg, mean gradient 10 mmHg, PURNIMA 1.6 cm squared (LVOT=21 cm); indexed aortic valve area 0.9 cm squared/m2. Left ventricular outflow tract gradient increases with Valsalva to 35 mmHg (Product Manufacturing Professional=3 m/s). Moderate eccentric aortic valve regurgitation directed towards anterior mitral leaflet (vena contractor 0.6 cm). Tricuspid Valve Structurally normal tricuspid valve. No tricuspid valve stenosis. Trace to mild tricuspid valve regurgitation. Pulmonic Valve Structurally normal pulmonic valve. No pulmonary valve stenosis. Trace pulmonary valve regurgitation. Pericardium No pericardial effusion. Aorta Normal size aortic root and proximal ascending aorta. CONCLUSIONS 1. Normal left ventricular size, systolic function with no regional wall motion abnormalities. Left ventricular ejection fraction is estimated at 65-70%. Asymmetric left ventricular hypertrophy (basal septal hypertrophy with IVSd=1.8 cm, PWd= 1.2 cm). 2. Normal right ventricular size and systolic function. 3. Bicuspid aortic valve (type 1). Mild aortic valve stenosis, peak velocity 2.3 m/s, peak gradient 21 mmHg, mean gradient 10 mmHg, PURNIMA 1.6 cm squared (LVOT=21 cm); indexed aortic valve area 0.9 cm squared/m2. Left ventricular outflow tract gradient increases with Valsalva to 35 mmHg (Product Manufacturing Professional=3 m/s). 3. Moderate eccentric aortic valve regurgitation directed towards anterior mitral leaflet (vena contractor 0.6 cm). 4. Trace to mild tricuspid valve regurgitation. 5. These findings may represent hypertrophic cardiomyopathy phenotype. Cardiac MRI may be considered if clinically indicated. Sola Espitia MD (Electronically Signed) Final Date: 18 November 2021 13:13 S
--- NOTE | 2021-11-17 12:10 | ANES.PREANE2 ---
Pre-Anesthetic Assessment Height/Weight: Height 1.52 m Weight 77.111 kg Temp Pulse Resp BP Pulse Ox 96.3 F L 61 20 H 132/65 92 11/17/21 11:03 11/17/21 11:03 11/17/21 11:03 11/17/21 11:03 11/17/21 11:03 Preop Diagnosis: zimble RUTHIE Familial anesthetic complications: none Last intake: 2130. 0900 sips with meds Social No alcohol and No tobacco Airway Submandibular: within normal limits Cervical ROM: within normal limits Mallampati: Class II Dentition: false Pulmonary Chronic Obstructive Pulmonary Disease CV/HEM Congestive Heart Failure and Hypertension mitral regurg and IHSS renal mass Hepatic None reported GI Gastroesophageal Reflux Disease Metabolic Diabetes Mellitus Musc/skel Lower Back Pain and Osteoarthritis/DJD Neuropsych Anxiety, Depression and Seizure Anesthetic Plan ASA status: 3 Medications/Allergies Home Medications Medication Instructions Recorded Confirmed Last Taken Type wheelchair #1 ea 03/26/21 11/16/21 Unknown Rx wheelchair #1 ea 05/28/21 11/16/21 Unknown Rx STANDARD WHEELCHAIR #1 ea 05/29/21 11/16/21 Unknown Rx oxdkuv-kzltotxj-ygyjddv 1 cap PO TID #90 cap 08/03/21 11/16/21 Unknown Rx 40,000-126,000-168,000 unit capsule, delay rel (Zenpep) brivaracetam 25 mg tablet 25 mg PO DAILY@08 #60 tab 09/24/21 11/16/21 Unknown Rx (Briviact) tizanidine 4 mg tablet 8 mg PO TID PRN 30 Days #180 tab 09/30/21 11/16/21 Unknown Rx ondansetron HCl 4 mg tablet 4 mg PO Q8H PRN #20 tab 10/22/21 11/16/21 Unknown Rx diphenhydramine HCl 25 mg capsule 25 mg PO Q6H PRN 10/26/21 11/16/21 Unknown History (Benadryl) polyethylene glycol 3350 17 17 g PO QAM PRN 10/26/21 11/16/21 Unknown History gram/dose oral powder (Miralax) amlodipine 10 mg tablet 10 mg PO DAILY #90 tab 11/01/21 11/16/21 Unknown Rx zolpidem 5 mg tablet 5 mg PO BEDTIME PRN #30 tab 11/09/21 11/16/21 Unknown Rx morphine 30 mg tablet,extended 30 mg PO Q12H 30 Days #60 tab 11/11/21 11/16/21 Unknown Rx release pantoprazole 40 mg tablet,delayed 40 mg PO BID@08,20 #90 tab 11/11/21 11/16/21 Unknown Rx release furosemide 20 mg tablet 20 mg PO DAILY PRN #30 tab 11/13/21 11/16/21 Unknown Rx metoprolol succinate 100 mg 50 mg PO DAILY 11/16/21 11/16/21 Unknown History tablet,extended release 24 hr spironolactone 25 mg tablet 12.5 mg PO BID 11/16/21 11/16/21 Unknown History Allergies Allergy/AdvReac Type Severity Reaction Status Date / Time canagliflozin [From Invokana] Allergy Severe abdominal Verified 11/13/21 10:18 pain aspirin Allergy Unknown Verified 11/13/21 10:18 ketorolac [From Toradol] Allergy Unknown Verified 11/13/21 10:18 nicardipine Allergy ALGY-Difficulty Verified 11/15/21 23:53 Breathing tramadol [From Ultram] Allergy Unknown Verified 11/13/21 10:18 Current Medications Generic Name Dose Route Start Last Admin Trade Name Freq PRN Reason Stop Dose Admin Acetaminophen 650 mg 11/16/21 01:51 11/16/21 23:22 Acetaminophen 325 Mg Tablet PO 650 mg Q6H PRN Administration Mild/Mod Pain Or Temp >/= 101 Amlodipine Besylate 10 mg 11/16/21 09:00 11/17/21 08:50 Amlodipine 10 Mg Tablet PO 10 mg DAILY LEANDRA Administration Lipase/Protease/Amylase 1 each 11/16/21 08:00 11/17/21 08:49 Mouzyu-Lsuovcww-Gwvirye Capsule PO Not Given TIDWM LEANDRA Enoxaparin Sodium 40 mg 11/16/21 03:30 11/17/21 03:36 Enoxaparin 40 Mg/0.4 Ml Syringe SUBCUT 40 mg Q24H LEANDRA Administration Hydralazine HCl 10 mg 11/16/21 01:51 11/17/21 01:53 Hydralazine 10 Mg Tablet PO 10 mg Q8H LEANDRA Administration Lorazepam 0.5 mg 11/16/21 01:51 11/17/21 03:37 Lorazepam 0.5 Mg Tablet PO 0.5 mg TID PRN Administration anxiety Metoprolol Tartrate 50 mg 11/16/21 09:00 11/17/21 08:50 Metoprolol Tartrate 50 Mg Tablet PO 50 mg BID@0900,2100 LEANDRA Administration Morphine Sulfate 30 mg 11/16/21 01:51 11/17/21 01:52 Morphine Er (12 Hr) 30 Mg Tablet PO 30 mg Q12H LEANDRA Administration Non-Formulary Medication 25 mg 11/16/21 08:00 11/17/21 08:48 Brivaracetam [Briviact] PO 25 mg DAILY@08 LEANDRA Administration Ondansetron HCl 4 mg 11/16/21 01:51 11/16/21 23:22 Ondansetron 2 Mg/Ml Sdv 2 Ml IVP 4 mg Q8H PRN Administration vomiting, or N/V if npo Oxycodone HCl 10 mg 11/17/21 08:35 11/17/21 09:04 Oxycodone 5 Mg Ir Tab/Cap PO 10 mg Q6H PRN Administration SEVERE PAIN Pantoprazole Sodium 40 mg 11/16/21 08:00 11/17/21 08:[address] 40 Mg Tablet PO 40 mg BID@08,20 LEANDRA Administration Spironolactone 25 mg 11/16/21 09:00 11/17/21 08:50 Spironolactone 25 Mg Tablet PO 25 mg DAILY LEANDRA Administration Tizanidine HCl 4 mg 11/16/21 01:51 11/17/21 09:00 Tizanidine 4 Mg Tablet PO 4 mg TID PRN Administration Spasms Zolpidem Tartrate 5 mg 11/16/21 01:51 11/16/21 20:10 Zolpidem 5 Mg Tablet PO 5 mg BEDTIME PRN Administration Sleep PFSH Anesthesia Medical History (Updated 11/17/21 @ 08:54 by Elisha Edward MD) Adrenal mass CHF (congestive heart failure) Chronic pain of lower extremity, bilateral Chronic pancreatitis 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 Primary osteoarthritis Recurrent vomiting Surgical History History of bilateral knee replacement History of cholecystectomy History of D&C 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 Family History Grandmother Cancer Lung disease Stroke Mother Lung disease Other A-fib CHF (congestive heart failure) Social History Smoking and tobacco status: never smoked Alcohol intake: never Household members: spouse Housing: House Marital status: Current occupational status: disabled History of recent travel: No Female Reproductive History Date of last menstrual period: 11/02/21 Data Anesthesia : 11/17/21 02:10 11/17/21 02:10 Short CBC 11/15/21 11/17/21 Range/Units 21:11 02:10 WBC 13.5 H 14.0 H (4.0-10.0) 10^3/uL Hgb 15.3 13.4 (11.5-15.3) g/dL Hct 46.5 42.2 (37.0-47.0) % MCV 87.2 91.1 (81-99) fl Plt Count 307 256 (130-400) 10^3/cmm Neut % (Auto) 65.1 70.4 % Neut # (Auto) 8.77 H 9.88 H (1.8-7.7) 10^3/uL BMP 11/15/21 11/17/21 21:11 02:10 Sodium 138 139 Potassium 4.0 4.7 Chloride 103 106 Carbon Dioxide 20 L 21 L BUN 8 10 Creatinine 0.6 0.7 Glucose 127 H 145 H Calcium 10.0 8.9 Cardiac Enzymes 11/15/21 11/15/21 Range/Units 21:11 23:10 Troponin T Baseline 8 (0-10) ng/L Troponin T 120 Minute 13.45 H (0-10) ng/L Delta Troponin T 5.45 (0-10) ABS# Liver Function 11/15/21 11/17/21 Range/Units 21:11 02:10 Total Bilirubin 0.6 0.4 (0.15-1.2) mg/dL AST 47 H 19 (0-32) U/L ALT 36 H 24 (0-33) U/L Alkaline Phosphatase 131 H 96 (35-105) IU/L Albumin 4.5 3.8 (3.5-5.2) g/dL Urine 11/15/21 Range/Units 22:52 Urine Color Yellow (Yellow) Urine Appearance Clear (CLEAR) Urine pH 5 (5-7) Ur Specific [place] 1.005 (1.005-1.030) Urine Protein Neg (Negative) Urine Glucose (UA) Norm (Normal) Urine Ketones Negative (Negative) Urine Nitrate Negative (Negative) Urine Bilirubin Neg (Negative) Ur Leukocyte Esterase Negative (Negative) COVID Results 11/15/21 20:40 Coronavirus 229E (PCR) Not detected SARS-CoV-2 (PCR) Not detected Cardiac Studies: Echocardiogram 10/27/21 Echocardiogram Ultrasound 10/20/20
--- NOTE | 2021-11-17 13:06 | PC.NURSE ---
Alerted the nurses station of patient feel nauseous.
[2021-11-17] MEDS: ondansetron 2 mg/ML SDV 2 mL 4 MG IVP ×2 (13:25→20:38)
--- NOTE | 2021-11-17 13:30 | PC.NURSE ---
RUTHIE start time 1221 Time out patient verbalized all identifiers and procedure and had no questions about procedure 1238 Bubbles introduced via IV with Dr Espitia's verbal instruction during procedures 1252 end time patient stable throughout see anaesthesia record for V/s patient awake alert and oriented 1315
--- NOTE | 2021-11-17 15:47 | PC.NURSE ---
call received from family with concerns patient not understanding care this nurse updated family who is on the PHI on patients current condition and vital signs spouse has been spoken to by providers with findings and Plan of care
[2021-11-17 16:24] LABS: Lipase 24 U/L (13-60)
[2021-11-17 16:31] LABS: Glucose Point of Care 122 mg/dL (70-110)
[2021-11-17] MEDS: promethazine 25 mg/mL SDV 1 mL 12.5 MG IM (18:01)
--- NOTE | 2021-11-17 18:41 | P.PN_ITS ---
Subjective Subjective: Patient was seen multiple times throughout the day before and after transesophageal echocardiogram. Medications: Reviewed: Yes Vitals/I&O/Wt Last Vital Signs Temp 96.6 F L 11/17/21 15:09 Pulse 61 11/17/21 15:09 Resp 15 11/17/21 15:09 BP 109/47 11/17/21 15:09 Pulse Ox 95 11/17/21 15:09 11/17/21 11/17/21 11/17/21 06:59 14:59 22:59 Intake Total 0 / 0 Output Total 1100 / 1600 350 / 350 Balance -1100 / -914.920 -350 / -350 Weight last 48 hrs Weight 170 lb Physical Exam Narrative: GENERAL: Obese woman laying in bed in no acute distress HEENT: No pallor or icterus. NECK: No JVD. No carotid bruit. CARDIOVASCULAR SYSTEM: S1-S2 regular. No murmur. RESPIRATORY SYSTEM: Chest clear to auscultation. No wheezes rhonchi or rubs heard. No use of accessory muscles. ABDOMEN: Soft, and nondistended. Right upper quadrant tenderness present, normal bowel sounds present. EXTREMITIES: No cyanosis or clubbing. [No edema]. No signs of chronic venous insufficiency. DATA WAREHOUSE ARCHITECT: Patient is alert oriented ?3. No focal neurological deficits. SKIN: Normal turgor and temperature. Urinary Catheter Management: Preston: Cath Placed During This Visit: no Reason for Continuing Indwelling Catheter: Acute Urinary Retention or Obstruction Data : 11/18/21 03:36 11/17/21 02:10 A&P Assessment and plan (1) Labile hypertension: Blood pressure is much better controlled now. Status: Acute (2) Aortic regurgitation: Plan for RUTHIE later today to assess aortic regurgitation. -Continue current meds -Results of RUTHIE were communicated to patient and her . Finding and possible management options were discussed as well. Status: Acute (3) IHSS (idiopathic hypertrophic subaortic stenosis): Concern for hypertrophic cardiomyopathy based on last echoes -We will assess on RUTHIE. May benefit from cardiac MRI. Patient's and the patient state that patient has had cardiac MRIs after knee replacement surgeries. Will have to look into it. Status: Acute (4) CHF (congestive heart failure): Appears compensated Status: Acute Plan Dizziness: No arrhythmia on telemetry here; patient's states her blood pressure increases on standing up. 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 Thank you for allow me to participate in patient's care. Please feel free to call with questions or concerns. Attestations Medical Necessity Statement*: As per primary team Procedures Time out/Consent Time Out Performed: Yes Consent for Procedure: Consent obtained from patient, Risks & Benefits reviewed and Agrees to proceed with procedure Procedure Narrative RUTHIE Procedure note Indication: Moderate to severe aortic regurgitation on echocardiogram and suspicion for hypertrophic cardiomyopathy Sedation: Propofol by anesthesia Procedure was explained to the patient in detail and informed consent was obtained. Timeout was called. After achieving adequate sedation, the probe was inserted on second attempt. No blood on the probe post procedure. Prelim report: Normal left ventricle size and systolic function. Asymmetrical basal septal hypertrophy. Bicuspid aortic valve with mild aortic stenosis and moderate aortic regurgitation. left atrial or left atrial appendage mass or thr ombus visualized. No ASD or PFO identified. Full report to follow. Patient tolerated the procedure well. Coding Level of Care Code Established Pt Acute Rim Fire Charger Operator for Chg Fwd Patient Type Established History Comprehensive Exam Comprehensive Medical Decision Making High Complexity Diagnoses Labile hypertension R09.89 Aortic regurgitation I35.1 IHSS (idiopathic hypertrophic subaortic stenosis) I42.1 CHF (congestive heart failure) I50.9 Time Spent (min) 60
--- NOTE | 2021-11-17 19:39 | PC.NURSE ---
Received report from AMPARO Cristina. Patient resting in bed. Patient reports abdominal pain 04/11. Requesting pain medication. Instructed patient on next oxycodone when due. Patient verbalized complete understanding. Denies other needs presently. Will continue to monitor.
--- NOTE | 2021-11-17 20:07 | PC.NURSE ---
Dr Edward in patient's room. Received verbal order for Dilaudid 0.5mg IVP one time now.
[2021-11-17] MEDS: HYDROmorphone 1 mg/mL INJ 1 mL 0.5 MG IVP (20:19)
[2021-11-17] MEDS: zolpidem 5 mg Tablet PO (20:21)
[2021-11-17] MEDS: sucralfate 1 gm/10 mL Oral Liq UDC PO (20:21)
[2021-11-18] VITALS (18 sets, daily range): BP systolic 96–181; BP diastolic 49–118; PULSE 73–101; RESP 12–23; TEMP 36.6–36.9; O2SAT 90–98
[2021-11-18] MEDS: hyDRALAzine 10 mg Tablet PO (00:55)
[2021-11-18] MEDS: morphine ER (12 HR) 30 mg tablet PO ×2 (00:55→13:21)
[2021-11-18] MEDS: enoxaparin 40 mg/0.4 mL Syringe SUBCUT (00:55)
[2021-11-18] MEDS: ondansetron 2 mg/ML SDV 2 mL 4 MG IVP ×3 (02:48→19:56)
[2021-11-18] MEDS: oxyCODONE 5 mg IR Tab/Cap 10 MG PO (02:52)
[2021-11-18] MEDS: LORazepam 0.5 mg Tablet PO (02:52)
[2021-11-18 04:07] LABS: Basophils # 0.1 10^3/uL (0.0-0.1); Basophils % 0.8 %; Eosinophils # 0.2 10^3/uL (0.0-0.8); Eosinophils % 1.5 %; Hematocrit 42.8 % (37.0-47.0); Hemoglobin 13.8 g/dL (11.5-15.3); Lymphocytes % 49.8 %; Mean Corpuscular HGB Conc 32.2 g/dL (30.0-36.0); Mean Corpuscular Hemoglobin 29.2 pg (28.0-34.0); Mean Corpuscular Volume 90.7 fl (81-99); Mean Platelet Volume 12.6 fL (7.4-10.4); Monocytes # 0.6 10^3/uL (0.2-0.9); Monocytes % 6.2 %; Neutrophils # 4.11 10^3/uL (1.8-7.7); Neutrophils % 41.4 %; Nucleated Red Blood Cells % 0 %; Platelet Count 203 10^3/cmm (130-400); Red Blood Count 4.72 10^6/uL (4.1-5.3); Red Cell Distribution Width 13.1 % (12.1-15.1); White Blood Count 9.9 10^3/uL (4.0-10.0)
[2021-11-18 04:35] LABS: Lipase 27 U/L (13-60)
[2021-11-18] MEDS: promethazine 25 mg Tablet PO ×2 (06:24→12:09)
[2021-11-18] MEDS: sucralfate 1 gm/10 mL Oral Liq UDC PO (06:25)
[2021-11-18 06:52] LABS: Glucose Point of Care 100 mg/dL (70-110)
--- NOTE | 2021-11-18 07:29 | CT_ITS ---
WS: [id number] CT ABDOMEN PELVIS TECHNIQUE: Noncontrast CT of the abdomen and pelvis with coronal and sagittal reformatted images. CLINICAL INFORMATION: pancrititis COMPARISON: CT November 15, 2021 DLP: 1276.[address] scans at [facility] use at least one of these dose optimization techniques: automated e xposure control; mA and/or kV adjustment per patient size (includes targeted exams where dose is matc hed to clinical indication); or iterative reconstruction. FINDINGS: Again seen is mild edema of the pancreatic head with slight surrounding inflammatory stranding compat ible with acute pancreatitis. This is similar in appearance to the prior examination. No peripancreat ic fluid collections. No drainable fluid collections. Diffuse fatty infiltration of the liver. Mild enlargement of the RIGHT hepatic lobe. Prior cholecyste ctomy. Small esophageal hiatal hernia. Lung bases are well aerated. Stable LEFT adrenal adenoma. RIGHT adrenal Gland is normal. No hydronephrosis in either kidney. Chika l noncontrast spleen. Splenic granulomas. A few reactive peripancreatic lymph nodes. Normal caliber a bdominal aorta. Preston catheter. No evidence of high-grade small or large bowel obstruction. No free fluid in the pelv is. Mild lumbar curve. CT/CT abdomen pelvis wo con [id number] IMPRESSION: 1. Mild peripancreatic edema in the head of the pancreas similar to previous c ompatible with acute pancreatitis. A few reactive peripancreatic lymph nodes. 2. Pancreatitis is similar to November 15, 2021. No drainable fluid collection s. 3. Prior cholecystectomy. 4. Mild hepatomegaly with diffuse fatty infiltration of the liver. 5. Preston catheter in place. 6. No other significant changes compared to previous.
--- NOTE | 2021-11-18 08:00 | PC.NURSE ---
Physician orders for patient to receive CT of abd wo contrast, dilaudid 0.4 Q4, and d5 with LR.
[2021-11-18] MEDS: dextrose 5%-lactated ringers 1,000 ML 100 ML IV ×2 (08:22→20:03)
[2021-11-18] MEDS: HYDROmorphone 1 mg/mL INJ 1 mL 0.4 MG IVP ×4 (08:38→19:56)
--- NOTE | 2021-11-18 09:10 | PC.NURSE ---
PO morning medications are late d/t patient vomiting.
[2021-11-18] MEDS: labetalol 300 MG in sodium chloride 0.9% 240 ML 30 MG IV (12:35)
--- NOTE | 2021-11-18 13:23 | PM.PN ---
Subjective Subjective: Patient could not take p.o. meds because of her dry heaves, nonbilious content consistent with excessive sputum in the bucket Repeat CT abdomen pelvis did show pancreatic edema however no signs of necrosis or sentinel loop She has been afebrile Start her on IV labetalol after getting midline placed Transesophageal echo findings: Hocm Would prefer beta-bimal for antihypertensive regimen Patient seems to have developed rash to amlodipine, would avoid Cardene drip Lipase level 27 no leukocytosis, afebrile updated as well CONCLUSIONS ?1. Normal left ventricular size, systolic function with no ?regional wall motion abnormalities. Left ventricular ejection ?fraction is estimated at 65-70%.? Asymmetric left ventricular ?hypertrophy (basal septal hypertrophy with IVSd=1.8 cm, PWd= 1.2 ?cm). ?2. Normal right ventricular size and systolic function. ?3. Bicuspid aortic valve (type 1). Mild aortic valve stenosis, ?peak velocity 2.3 m/s, peak gradient 21 mmHg, mean gradient 10 ?mmHg, PURNIMA 1.6 cm squared (LVOT=21 cm); indexed aortic valve area 0.9 ?cm squared/m2.? Left ventricular outflow tract gradient increases with ?Valsalva to 35 mmHg (Director Health=3 m/s).? ?3. Moderate eccentric aortic valve regurgitation directed ?towards anterior mitral leaflet (vena contractor 0.6 cm). ?4. Trace to mild tricuspid valve regurgitation. ?5. These findings may represent hypertrophic cardiomyopathy ?phenotype.? Cardiac MRI may be considered if clinically ?indicated. Vitals/I&O/Wt Last Vital Signs Temp 98.5 F 11/18/21 09:12 Pulse 101 H 11/18/21 09:12 Resp 18 11/18/21 12:08 BP 158/118 11/18/21 09:12 Pulse Ox 96 11/18/21 12:08 11/17/21 11/18/21 11/18/21 22:59 06:59 14:59 Intake Total 1308.333 / 1308.333 Output Total 240 / 590 1100 / 1690 Balance 1068.333 / 718.333 -1100 / -381.667 Physical Exam Narrative: She experiencing dry heaves Hyperemia of skin noted, upper extremity blanchable hyperemic rash Patient is awake and alert In distress because of dry heaves Tender epigastric region Does not look dehydrated today Doing well on room air no audible stridor or wheezing Nonfocal neuro exam Urinary Catheter Management: Preston: Cath Placed During This Visit: no Reason for Continuing Indwelling Catheter: Acute Urinary Retention or Obstruction Data : 11/18/21 03:36 11/17/21 02:10 A&P Assessment and plan (1) Hypertensive crisis: Status: Acute (2) HOCM (hypertrophic obstructive cardiomyopathy): Status: Acute (3) Exocrine pancreatic insufficiency: Status: Acute (4) Pancreatitis: Status: Acute (5) Aortic regurgitation: Status: Acute Plan Hypertensive crisis Currently on labetalol drip considering concern for hypertrophic cardiomyopathy would prefer beta-blockers She was not able to take p.o. meds because of her dry heaves Pancreatitis: Lipase unremarkable exocrine pancreatic insufficiency I do not suspect lipase to be high, no signs of central loop or necrotic pancreas Keep her n.p.o. Start D5 LR Use Dilaudid for analgesia Transesophageal echo showed changes which could be consistent with hypertrophic cardiomyopathy, cardiac MRI recommended Work-up can be done outpatient Case discussed with Dr. Espitia There is no significant left ventricular outflow obstruction at this point, no acute surgical intervention recommended by Dr. Espitia at this point Dr. Espitia recommended outpatient follow-up with Dr. Brito My plan is to titrate off labetalol drip today once her symptoms improve start adding p.o. meds and discharge from the hospital with outpatient follow-up with Dr. Kumar and loading checker Recurrent pancreatitis, adrenal adenoma, she will need work-up for MEN syndrome Diabetes: Continue sliding scale continue D5 LR Full code N.p.o. DVT prophylaxis: On board Chronic pain syndrome patient takes morphine at home updated Attestations Medical Necessity Statement*: Continue medical management Time Spent in Patient Care: 30min Coding Level of Care Code Acute Parts Salesperson for Chg Fwd Diagnoses Hypertensive crisis I16.9 HOCM (hypertrophic obstructive cardiomyopathy) I42.1 Exocrine pancreatic insufficiency K86.81 Pancreatitis K85.90 Aortic regurgitation I35.1
[2021-11-18 13:47] LABS: Alanine Aminotransferase 38 U/L (0-33); Albumin Level 4.2 g/dL (3.5-5.2); Alkaline Phosphatase 117 IU/L (35-105); Anion Gap 17.7 (5-19); Aspartate Amino Transferase 55 U/L (0-32); Blood Urea Nitrogen 9 mg/dL (6-20); Calcium 9.6 mg/dL (8.5-10.5); Carbon Dioxide 23 mmol/L (22-29); Chloride 104 mmol/L (98-107); Creatinine Clr Calc Pharmacy 113.2604; Globulin 3.3 g/dL (1.3-4.6); Glomerular Filtration Rate 110.2 mL/min (90-130); Glucose 138 mg/dL (65-115); Magnesium 1.4 mg/dL (1.7-2.3); Osmolality Calculated 293 mOsm/kg (285-295); Phosphorus 2.6 mg/dL (2.5-4.5); Potassium 3.7 mmol/L (3.5-5.1); Sodium 141 mmol/L (136-145); Total Bilirubin 0.7 mg/dL (0.15-1.2); Total Protein 7.5 g/dL (6.6-8.7)
[2021-11-18] MEDS: LORazepam 2 mg/mL INJ 1 mL 1 MG IVP ×2 (14:21→22:13)
[2021-11-18] MEDS: pantoprazole 40 mg SDV IVP (14:22)
[2021-11-18] MEDS: metoclopramide 5 mg/mL SDV 2 mL IVP ×2 (15:55→22:13)
[2021-11-18] MEDS: tizanidine 4 mg Tablet PO ×2 (16:01→21:11)
[2021-11-18] MEDS: metoprolol tartrate 50 mg Tablet PO (19:55)
[2021-11-18] MEDS: zolpidem 5 mg Tablet PO (19:56)
[2021-11-18 20:34] LABS: Glucose Point of Care 131 mg/dL (70-110)
--- NOTE | 2021-11-18 21:34 | P.PN_ITS ---
Subjective Subjective: Patient continues to have abdominal pain, nausea and vomiting Medications: Reviewed: Yes Vitals/I&O/Wt Last Vital Signs Temp 97.8 F 11/18/21 20:00 Pulse 81 11/18/21 20:00 Resp 23 H 11/18/21 20:00 BP 100/49 11/18/21 20:00 Pulse Ox 95 11/18/21 20:00 11/18/21 11/18/21 11/18/21 06:59 14:59 22:59 Intake Total 120 / 120 1411.5 / 1531.5 Output Total 1100 / 1690 1400 / 1400 500 / 1900 Balance -1100 / -381.667 -1280 / -1280 911.5 / -368.5 Physical Exam Narrative: GENERAL: Obese woman laying in bed in no acute distress HEENT: No pallor or icterus. NECK: No JVD. No carotid bruit. CARDIOVASCULAR SYSTEM: S1-S2 regular. grade 3/6 diastolic murmur in aortic area and systolic murmur in LLSB. RESPIRATORY SYSTEM: Chest clear to auscultation. No wheezes rhonchi or rubs heard. No use of accessory muscles. ABDOMEN: Soft, and nondistended. Right upper quadrant tenderness present, normal bowel sounds present. EXTREMITIES: No cyanosis or edema No signs of chronic venous insufficiency. BANQUET LINE COOK: Patient is alert oriented ?3. No focal neurological deficits. SKIN: Normal turgor and temperature. Urinary Catheter Management: Preston: Cath Placed During This Visit: yes, but has since been removed by the nurse Reason for Continuing Indwelling Catheter: Accurate Measurement of Urinary Output in Critically Ill Patients Date Urinary Catheter Removed: 11/18/21 Time Urinary Catheter Discontinued: 15:30 Data : 11/19/21 02:36 11/19/21 02:36 A&P Assessment and plan (1) Labile hypertension: Patient had to be placed back on IV labetalol d/t inability to tolerate PO meds. Blood pressure is much better controlled now. Status: Acute (2) Aortic regurgitation: Moderate aortic regurgitation on RUTHIE -Continue current meds -Results of RUTHIE were communicated to patient and her . Finding and possible management options were discussed as well. Status: Acute (3) IHSS (idiopathic hypertrophic subaortic stenosis): Concern for hypertrophic cardiomyopathy based on last echoes -Asymmetric septal hypertrophy on RUTHIE with peak gradient increasing from 21 to 35 mm Hg with Valsalva. May benefit from cardiac MRI. Patient's and the patient state that patient has had cardiac MRIs after knee replacement surgeries. Will have to look into it. -f/u with Dr. Brito in 2-3 weeks after discharge. -I will sign off. Please call with questions or concerns. Status: Acute (4) CHF (congestive heart failure): Appears compensated Status: Acute Plan Mild aortic stenosis Bicuspid aortic valve Dizziness: No arrhythmia on telemetry here; patient's states her blood pressure increases on standing up. 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 Thank you for allow me to participate in patient's care. Please feel free to call with questions or concerns. Attestations Medical Necessity Statement*: As per primary team Coding Level of Care Code Established Pt Acute Geodetic Survey Director for Yarag Fwfadi Patient Type Established History Detailed Exam Detailed Medical Decision Making Moderate Complexity Diagnoses Labile hypertension R09.89 Aortic regurgitation I35.1 IHSS (idiopathic hypertrophic subaortic stenosis) I42.1 CHF (congestive heart failure) I50.9
[2021-11-19] VITALS (20 sets, daily range): BP systolic 101–223; BP diastolic 49–116; PULSE 69–119; RESP 12–24; TEMP 36.6–36.7; O2SAT 91–97
[2021-11-19] MEDS: pantoprazole 40 mg SDV IVP (02:06)
[2021-11-19] MEDS: morphine ER (12 HR) 30 mg tablet PO ×2 (02:07→12:25)
[2021-11-19] MEDS: hyDRALAzine 10 mg Tablet PO ×2 (02:07→09:22)
[2021-11-19] MEDS: enoxaparin 40 mg/0.4 mL Syringe SUBCUT (02:09)
[2021-11-19 03:09] LABS: Basophils # 0.1 10^3/uL (0.0-0.1); Basophils % 0.6 %; Eosinophils # 0.1 10^3/uL (0.0-0.8); Eosinophils % 0.8 %; Hematocrit 39.3 % (37.0-47.0); Hemoglobin 12.6 g/dL (11.5-15.3); Lymphocytes # 4.6 10^3/uL (0.8-4.8); Lymphocytes % 43.9 %; Mean Corpuscular HGB Conc 32.1 g/dL (30.0-36.0); Mean Corpuscular Hemoglobin 28.7 pg (28.0-34.0); Mean Corpuscular Volume 89.5 fl (81-99); Mean Platelet Volume 12.1 fL (7.4-10.4); Monocytes % 9.7 %; Neutrophils # 4.64 10^3/uL (1.8-7.7); Neutrophils % 44.7 %; Nucleated Red Blood Cells % 0 %; Platelet Count 213 10^3/cmm (130-400); Red Blood Count 4.39 10^6/uL (4.1-5.3); Red Cell Distribution Width 12.9 % (12.1-15.1); White Blood Count 10.4 10^3/uL (4.0-10.0)
[2021-11-19 03:25] LABS: Albumin Level 3.7 g/dL (3.5-5.2); Alkaline Phosphatase 92 IU/L (35-105); Blood Urea Nitrogen 8 mg/dL (6-20); Calcium 8.9 mg/dL (8.5-10.5); Carbon Dioxide 28 mmol/L (22-29); Chloride 103 mmol/L (98-107); Creatinine Clr Calc Pharmacy 113.2604; Globulin 2.3 g/dL (1.3-4.6); Glomerular Filtration Rate 110.2 mL/min (90-130); Glucose 113 mg/dL (65-115); Lipase 25 U/L (13-60); Magnesium 1.7 mg/dL (1.7-2.3); Osmolality Calculated 289 mOsm/kg (285-295); Phosphorus 3.9 mg/dL (2.5-4.5); Sodium 140 mmol/L (136-145); Total Bilirubin 0.7 mg/dL (0.15-1.2)
[2021-11-19 03:31] LABS: Anion Gap 13.1 (5-19); Potassium 4.1 mmol/L (3.5-5.1)
[2021-11-19 03:32] LABS: Alanine Aminotransferase 28 U/L (0-33); Aspartate Amino Transferase 36 U/L (0-32)
[2021-11-19] MEDS: HYDROmorphone 1 mg/mL INJ 1 mL 0.4 MG IVP ×2 (04:22→08:21)
[2021-11-19] MEDS: ondansetron 2 mg/ML SDV 2 mL 4 MG IVP ×2 (04:22→11:27)
[2021-11-19] MEDS: dextrose 5%-lactated ringers 1,000 ML 100 ML IV (04:27)
[2021-11-19] MEDS: LORazepam 2 mg/mL INJ 1 mL 1 MG IVP (06:10)
[2021-11-19 06:24] LABS: Glucose Point of Care 116 mg/dL (70-110)
[2021-11-19] MEDS: spironolactone 25 mg Tablet PO (08:22)
[2021-11-19] MEDS: metoclopramide 5 mg/mL SDV 2 mL IVP (08:22)
[2021-11-19] MEDS: tizanidine 4 mg Tablet PO (08:23)
[2021-11-19] MEDS: metoprolol tartrate 50 mg Tablet PO (08:23)
--- NOTE | 2021-11-19 09:25 | PC.SOCIAL ---
IMM UPDATED IMM dated and initialed and copy given to patient
--- NOTE | 2021-11-19 12:08 | PC.NURSE ---
Around 1000: Encouraged patient to advance diet as tolerated per Dr. Edward's orders. Patient has not had any episodes of emesis since yesterday around noon. Patient has been taking PO medications. Vitals all sustaining within normal limits. Patient refuses to eat anything, states I just want to be discharged and go home. Notified Dr. Edward, Hospitalist. Orders received, see orders.
--- NOTE | 2021-11-19 12:10 | P.DS_ITS ---
Discharge Providers Date of Admission: 11/16/21 10:45 Date of Discharge: November 19, 2021 Attending Provider at Admission: Ryan Kolb MD Attending Provider at Discharge: Elisah Edward MD Primary Care Provider: Yony Otero MD Diagnoses at Discharge Discharge Diagnosis (1) Labile hypertension: Status: Acute (2) Aortic regurgitation: Status: Acute (3) IHSS (idiopathic hypertrophic subaortic stenosis): Status: Acute (4) CHF (congestive heart failure): Status: Acute Reason for Visit Reason for Visit: B/P problems Hospital Course Hospital Course Patient was admitted for management of pancreatitis, hypertensive crisis. She has allergies to nicardipine hence esmolol drip was initiated. We titrated off esmolol drip slowly and then transitioned her to p.o. antihypertensive regimen however because of her pancreatitis she kept complaining about right upper quadrant pain radiating towards her left shoulder. She did not experience any bilious vomiting however kept avoiding medications because of dry heaves. In the bucket she was only spitting clear white liquid which seemed like sputum. She remained afebrile. Lipase did not trend up. Repeat CT abdomen did not show necrotic pancreas, pseudocyst or worsening of pancreatitis. Blood pressure seems to be very labile, considering adrenal adenoma, this Case was discussed with compression molding machine operator Dr. Kumar who recommended 24-hour urine studies which have been sent on 11/17. I was told it probably takes about 7 days for the results to come back. Secondary to complaints of nausea and dry heaves she was unable to take p.o. meds and blood pressure chinyere around systolic 200s millimeter mercury, labetalol GTT was chosen second time. During hospitalization patient kept asking about morphine, Ativan and she would ask for opioids before actual time. Her asked me to transfer her for higher level of care where inpatient compression molding machine operator available. I did try [facility] and nursing staff called back to [facility], no one has any bed available at this point. I did speak with her sister who is a social science professor and explained what we have done so far and what needs to be done in future. Patient and her both were complaining about the previous discharge from the hospital and how transesophageal echo was missed when they saw Bonnie Singh in her office. I asked Dr. Espitia to do transesophageal echo. Echo did show concerning changes related to hypertrophic cardiomyopathy without left ventricular outflow obstruction. She recommended outpatient work-up following up with Dr. Brito and cardiac MRI. I did discuss with the patient that considering pancreatitis, adrenal adenoma, hocm, MEN syndrome has not been ruled out yet. Appointment has been made for 8:[address] Kumar on Tuesday, I have updated her as well. 24-hour urine studies pending. Blood pressure at the time of discharge 114/58mmhg. she remained afebrile, potassium 4.1, magnesium 1.7, AST 36, ALT 28, alk phosphatase improved 92. Lipase 25. For hypertension she will get metoprolol tartrate twice a day, spironolactone, Lasix, amlodipine, hydralazine Blood pressure diary Follow-up with compression molding machine operator and Dr. Brito Meds sent to [facility] At the time of discharge patient asked me to prescribe her Ativan. I only gave her 7 tablets. Her Ativan and morphine has been prescribed by Dr. Centeno in the past Physical Exam Narrative: female Looks well-hydrated Abdomen tender midepigastric region Nonfocal neuro exam S1, S2 She has a midline Urinary Catheter Management: Preston: Cath Placed During This Visit: yes, but has since been removed by the nurse Reason for Continuing Indwelling Catheter: Accurate Measurement of Urinary Output in Critically Ill Patients Date Urinary Catheter Removed: 11/18/21 Time Urinary Catheter Discontinued: 15:30 Discharge Data Studies Completed and Pending Completed Studies During Hospitalization Category Date Time Status CT abdomen pelvis wo con [id number] Stat Cat Scan 11/18/21 07:29 Completed CTA chest abdomen pelvis [CT angio chest abdomen pelvis Cat Scan 11/15/21 21:32 Completed ] Urgent XR chest 1V portable [id number] Urgent Exams 11/15/21 20:11 Completed CV. echo transesophageal [id number] Routine Ultrasound 11/17/21 12:00 Completed Pending at discharge Category Date Time Status 5-HIAA 24Hr Urine Routine Lab 11/17/21 14:52 Received Catecholamines Free,Urine 24hr Routine Lab 11/17/21 14:52 Received Cortisol,Free 24hr Urine LC/MS Routine Lab 11/17/21 14:52 Received Metanephrines, Frac LC/MS/MS Stat Lab 11/15/21 23:05 Received Radiology Impressions Chest X-Ray 11/15/21 20:11 IMPRESSION: No acute findings. Chest/Abdomen/Pelvis CTA 11/15/21 21:32 IMPRESSION: 1. Minimal edema in the region of the pancreatic head with several prominent subcentimeter lymph nodes, please correlate for possible pancreatitis. 2. Cholecystectomy. 3. Hepatic steatosis suspected. 4. Left adrenal 18 mm low-density lesion suggestive of a benign adenoma. 5. Constipation. Abdomen/Pelvis CT 11/18/21 07:29 IMPRESSION: 1. Mild peripancreatic edema in the head of the pancreas similar to previous compatible with acute pancreatitis. A few reactive peripancreatic lymph nodes. 2. Pancreatitis is similar to November 15, 2021. No drainable fluid collections. 3. Prior cholecystectomy. 4. Mild hepatomegaly with diffuse fatty infiltration of the liver. 5. Preston catheter in place. 6. No other significant changes compared to previous. Laboratory Results WBC 10.4 10^3/uL (4.0-10.0) H 11/19/21 02:36 RBC 4.39 10^6/uL (4.1-5.3) 11/19/21 02:36 Hgb 12.6 g/dL (11.5-15.3) 11/19/21 02:36 Hct 39.3 % (37.0-47.0) 11/19/21 02:36 MCV 89.5 fl (81-99) 11/19/21 02:36 MCH 28.7 pg (28.0-34.0) 11/19/21 02:36 MCHC 32.1 g/dL (30.0-36.0) 11/19/21 02:36 RDW 12.9 % (12.1-15.1) 11/19/21 02:36 Plt Count 213 10^3/cmm (130-400) 11/19/21 02:36 MPV 12.1 fL (7.4-10.4) H 11/19/21 02:36 Neut % (Auto) 44.7 % 11/19/21 02:36 Lymph % (Auto) 43.9 % 11/19/21 02:36 Smyth % (Auto) 9.7 % 11/19/21 02:36 Eos % (Auto) 0.8 % 11/19/21 02:36 Baso % (Auto) 0.6 % 11/19/21 02:36 Neut # (Auto) 4.64 10^3/uL (1.8-7.7) 11/19/21 02:36 Lymph # (Auto) 4.6 10^3/uL (0.8-4.8) 11/19/21 02:36 Smyth # (Auto) 1.0 10^3/uL (0.2-0.9) H 11/19/21 02:36 Eos # (Auto) 0.1 10^3/uL (0.0-0.8) 11/19/21 02:36 Baso # (Auto) 0.1 10^3/uL (0.0-0.1) 11/19/21 02:36 Nucleated RBC % (auto) 0 % 11/19/21 02:36 Nucleated RBCs # 0.0 /100WBC 11/19/21 02:36 Sodium 140 mmol/L (136-145) 11/19/21 02:36 Potassium 4.1 mmol/L (3.5-5.1) 11/19/21 02:36 Chloride 103 mmol/L (98-107) 11/19/21 02:36 Carbon Dioxide 28 mmol/L (22-29) 11/19/21 02:36 Anion Gap 13.1 (5-19) 11/19/21 02:36 BUN 8 mg/dL (6-20) 11/19/21 02:36 Creatinine 0.6 mg/dL (0.5-0.9) 11/19/21 02:36 GFR Calculation 110.2 mL/min (90-130) 11/19/21 02:36 Glucose 113 mg/dL (65-115) 11/19/21 02:36 POC Glucose 116 mg/dL (70-110) H 11/19/21 06:09 Calculated Osmolality 289 mOsm/kg (285-295) 11/19/21 02:36 Calcium 8.9 mg/dL (8.5-10.5) 11/19/21 02:36 Phosphorus 3.9 mg/dL (2.5-4.5) 11/19/21 02:36 Magnesium 1.7 mg/dL (1.7-2.3) 11/19/21 02:36 Total Bilirubin 0.7 mg/dL (0.15-1.2) 11/19/21 02:36 AST 36 U/L (0-32) H 11/19/21 02:36 ALT 28 U/L (0-33) 11/19/21 02:36 Alkaline Phosphatase 92 IU/L (35-105) 11/19/21 02:36 Troponin T Baseline 8 ng/L (0-10) 11/15/21 21:11 Troponin T 120 Minute 13.45 ng/L (0-10) H 11/15/21 23:10 Delta Troponin T 5.45 ABS# (0-10) 11/15/21 23:10 Total Protein 6.0 g/dL (6.6-8.7) L 11/19/21 02:36 Albumin 3.7 g/dL (3.5-5.2) 11/19/21 02:36 Globulin 2.3 g/dL (1.3-4.6) 11/19/21 02:36 Lipase 25 U/L (13-60) 11/19/21 02:36 TSH 0.94 uIU/mL (0.27-4.20) 11/15/21 21:11 Free T4 1.25 ng/dL (0.82-1.77) 11/15/21 21:11 Urine Color Yellow (Yellow) 11/15/21 22:52 Urine Appearance Clear (CLEAR) 11/15/21 22:52 Urine pH 5 (5-7) 11/15/21 22:52 Ur Specific [place] 1.005 (1.005-1.030) 11/15/21 22:52 Urine Protein Neg (Negative) 11/15/21 22:52 Urine Glucose (UA) Norm (Normal) 11/15/21 22:52 Urine Ketones Negative (Negative) 11/15/21 22:52 Urine Blood Neg (Negative) 11/15/21 22:52 Urine Nitrate Negative (Negative) 11/15/21 22:52 Urine Bilirubin Neg (Negative) 11/15/21 22:52 Urine Urobilinogen Norm mg/dL (Negative) 11/15/21 22:52 Ur Leukocyte Esterase Negative (Negative) 11/15/21 22:52 Urine Cortisol (TLC) Cancelled 11/17/21 14:52 Coronavirus 229E (PCR) Not detected (NOT DETECT) 11/15/21 20:40 SARS-CoV-2 (PCR) Not detected (NOT DETECT) 11/15/21 20:40 Vitals Last Vital Signs Temp 97.9 F 11/18/21 23:26 Pulse 112 H 11/19/21 07:20 Resp 18 11/19/21 08:21 BP 205/112 11/19/21 07:20 Pulse Ox 94 11/19/21 08:21 Discharge Plan Discharge Patient Disposition: Home Condition: Stable Prescriptions: New hydralazine 10 mg Tablet 10 mg PO Q8H Qty: 90 3RF metoprolol tartrate 50 mg Tablet 50 mg PO BID@0900,2100 Qty: 60 3RF Ativan 0.5 mg tablet 0.5 mg PO DAILY PRN (Reason: agitation) Qty: 7 0RF Continued (DME) wheelchair See Rx Instructions .Route .MEDSUPPLY Qty: 1 0RF Rx Instructions: patient needs replacement chair. (DME) STANDARD WHEELCHAIR See Rx Instructions .Route .MEDSUPPLY Qty: 1 0RF Rx Instructions: As directed furosemide 20 mg tablet 20 mg PO DAILY PRN (Reason: edema) Qty: 30 0RF morphine 30 mg tablet extended release 30 mg PO Q12H 30 Days Qty: 60 0RF Rx Instructions: at 0800/1999 pantoprazole 40 mg tablet,delayed release (DR/EC) 40 mg PO BID@08,20 Qty: 90 3RF (DME) wheelchair See Rx Instructions .Route .MEDSUPPLY Qty: 1 0RF Rx Instructions: As directed Zenpep 40,000-126,000- 168,000 unit capsule,delayed release(DR/EC) 1 cap PO TID Qty: 90 8RF Rx Instructions: administer with meals and/or snacks Briviact 25 mg tablet 25 mg PO DAILY@08 Qty: 60 0RF tizanidine 4 mg tablet 8 mg PO TID PRN (Reason: muscle spasticity) 30 Days Qty: 180 3RF zolpidem 5 mg tablet 5 mg PO BEDTIME PRN (Reason: Sleep) Qty: 30 3RF diphenhydramine HCl [Benadryl] 25 mg Capsule 25 mg PO Q6H PRN (Reason: Allergy Symptoms) 0RF polyethylene glycol 3350 [Miralax] 17 gram/dose Powder 17 g PO QAM PRN (Reason: Constipation) 0RF amlodipine 10 mg Tablet 10 mg PO DAILY Qty: 90 3RF ondansetron HCl 4 mg tablet 4 mg PO Q8H PRN (Reason: nausea and vomiting) Qty: 20 2RF Changed spironolactone 25 mg tablet 12.5 mg PO DAILY Qty: 0 0RF Discontinued metoprolol succinate 100 mg tablet extended release 24 hr 50 mg PO DAILY 0RF Discharge Orders: Discharge Order (Routine); Ordered 11/19/21 Ordered By: Elisha Edward Referrals: Yony Otero MD [Primary Care Provider] - 11/24/21 3:00 am (Please follow-up with Dr. Otero on at 3:00P.M. If have any questions or need to reschedule. Please call ) Дмитрий Brito MD [Physician] - 1-3 days Misael Kumar MD [Physician] - 11/20/21 8:00 am (Please follow-up with Dr. Gresham on at 8:00A.M. If you have any questions or need to reschedule. Please call ) Discharge Diet: Low Fat, GI Soft and Soft Mechanical Discharge Activity: Increase activity as tolerated Patient Instructions: Opioid Safety Discharge Attestations Time Spent in Discharge Care*: less than 30 min Status at Discharge: Cognitive status at discharge: cognitively intact , Behavioral status at discharge: cooperative , Quality Metrics Clinical Quality Measures [ No reported AMI, CVA or VTE this stay] Coding Level of Care Code Acute Chg FW DC note Diagnoses Labile hypertension R09.89 Aortic regurgitation I35.1 IHSS (idiopathic hypertrophic subaortic stenosis) I42.1 CHF (congestive heart failure) I50.9
--- NOTE | 2021-11-19 17:08 | PC.NURSE ---
Discharge Note Patient discharged to home via private vehicle accompanied by spouse. All lines removed from patient. Home medications returned to patient. Discharge instructions reviewed with patient and patients spouse. Patient and patients spouse verbalized understanding of all teaching. Mobile pharmacy medications and/or prescriptions provided. Belongings sent home with patient.
[2021-11-21 23:02] LABS: Calculated Total (E+NE) 6 mcg/24 h (26-121)
[2021-11-23 14:08] LABS: Free Cortisol Urine 2.1 mcg/24 h (4.0-50.0); Total Urine 1800 mL; Urine Creatinine 0.86 g/24 h (0.50-2.15)
[2021-11-25 21:52] LABS: 24 Hour Urine Volume 1800 mL; 5-HIAA, 24 Hour Urine 3.2 mg/24 h (<=6.0)
[2021-11-26 05:17] LABS: Metanephrine Total Free 228 pg/mL (<=205)
== END 2021-11-19 15:35 | disposition home or self-care (01) | DRG 305 ==
LOC: ER 11-16 09:20 → CSU 11-16 10:47
PROVIDERS: Emergency Medicine; Admitting Provider Family Medicine; Emergency Provider Emergency Medicine; PCP Internal Medicine; Visit Provider Internal Medicine
DX: I16.9 Hypertensive crisis, unspecified (principal); K86.1 Other chronic pancreatitis; I42.1 Obstructive hypertrophic cardiomyopathy; I11.0 Hypertensive heart disease with heart failure; I50.9 Heart failure, unspecified; D35.02 Benign neoplasm of left adrenal gland; E11.9 Type 2 diabetes mellitus without complications; K86.81 Exocrine pancreatic insufficiency; E66.9 Obesity, unspecified; J44.9 Chronic obstructive pulmonary disease, unspecified; E31.20 Multiple endocrine neoplasia [MEN] syndrome, unspecified; K21.9 Gastro-esophageal reflux disease without esophagitis; G89.4 Chronic pain syndrome; G47.33 Obstructive sleep apnea (adult) (pediatric); G40.909 Epilepsy, unspecified, not intractable, without status epilepticus; Z68.33 Body mass index [BMI] 33.0-33.9, adult; Z96.653 Presence of artificial knee joint, bilateral; Z90.49 Acquired absence of other specified parts of digestive tract; Z86.16 Personal history of COVID-19; Z82.49 Family history of ischemic heart disease and other diseases of the circulatory system; Z87.39 Personal history of other diseases of the musculoskeletal system and connective tissue; Z79.891 Long term (current) use of opiate analgesic
CPT/HCPCS: 36415; 36416; 36569; 36592; 71045; 71275; 74174; 74176; 80053; 81003; 82384; 82530; 82962; 83497; 83690; 83735; 83835; 84100; 84439; 84443; 84484; 85025; 87635; 93005; 93312; 93320; 93325; 94664; 96372; 96374; 96375; 99285; C9113; J1170; J1200; J1650; J2060; J2270; J2370; J2405; J2550; J2704; J2765; J2930; J3490; J7030; J7050; Q0169; Q9967

== ENCOUNTER → 2021-12-02 14:07 | Outpatient (BNVA) | payer MEDICARE, MEDICAID, SELFPAY | PROVIDERS: PCP Internal Medicine; Visit Provider Internal Medicine | DX: K86.1 Other chronic pancreatitis (principal); E27.8 Other specified disorders of adrenal gland; I16.0 Hypertensive urgency; I42.1 Obstructive hypertrophic cardiomyopathy | CPT/HCPCS: 99205 ==

== ENCOUNTER 2021-12-02 15:51 | Emergency (ER) | payer MEDICARE, MEDICAID, SELFPAY ==
[2021-12-02] VITALS (8 sets, daily range): BP systolic 174–212; BP diastolic 100–142; PULSE 89–134; RESP 10–28; TEMP 37.7; O2SAT 96–98; BMI 34.0
--- NOTE | 2021-12-02 17:41 | XRR_ITS ---
PROCEDURE INFORMATION: Exam: XR Chest Exam date and time: 12/02/2021 5:41 PM Age: 41 years old Clinical indication: Pain; Angina pectoris; Additional info: Chest pain, high BP TECHNIQUE: Imaging protocol: XR of the chest. Views: 1 view. COMPARISON: CR (CHEST, ) 11/15/2021 8:17 PM FINDINGS: Lungs: Unremarkable. No consolidation. Pleural spaces: Unremarkable. No pleural effusion. No pneumothorax. Heart/Mediastinum: Unremarkable. No cardiomegaly. Bones/joints: Unremarkable. XR/XR chest 1V portable [id number] IMPRESSION: No acute findings.
--- NOTE | 2021-12-02 17:41 | ECG_ITS ---
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 Measurements Intervals [place] Rate: 129 P: 67 MA: 145 QRS: -3 QRSD: 86 T: 112 QT: 318 QTc: 467 Interpretive Statements SINUS TACHYCARDIA LEFT VENTRICULAR HYPERTROPHY AND ST-T CHANGE [VOLTAGE CRITERIA PLUS ST/T ABNORMALITY] INFERIOR MYOCARDIAL INFARCTION , PROBABLY OLD [40+ ms Q WAVE AND/OR ST/T ABNORMALITY IN II/aVF] Compared to ECG 11/15/2021 22:42:00 No significant changes Electronically Signed On 12-02-2021 20:21:29 FELT [employer] FINISH[employer] by Rahul Zambrano M.D. [id number]
--- NOTE | 2021-12-02 17:45 | ED_ITS ---
Documented by User: Christopher Carmona MD 12/02/21 17:53 HPI - General Adult General: Chief complaint: General Medical Stated complaint: High B/P Time Seen by Provider: 12/02/21 17:33 Source: patient and old records reviewed (Records from Dr. Misael Kumar reviewed from visit today.) Mode of arrival: ambulatory Limitations: no limitations History of Present Illness: See nursing assessment. Patient here after physician referred her to the emergency room for evaluation of hypertensive urgency. Patient also had mild headache, epigastric and right lower quad abdominal pain. She also complained of chest pain. Patient reportedly has had hypertensive urgency frequently over the past 2 months. Patient also had problems with episodes of hypotension and patient reportedly stopped her spironolactone, metoprolol, and amlodipine. Reportedly had normal renin and aldosterone levels. Patient had borderline 24-hour urine. pt also with dysuria complaint: Mild headache, mild left-sided chest pain, mild epigastric and mod rlq pain Location: abdomen (rlq and epigastric) Severity: moderate Quality: aching Relieving factors: none Exacerbating factors: none Associated symptoms: Reports chest pain and headache(s); Deny confusion, cough, diaphoresis, decreased appetite, dyspnea, fevers/chills, nausea, rash, short of breath or vomiting Review of Systems Const: Denies: diaphoresis Eyes: Denies: change in vision ENMT: Denies: throat pain Card: Reports: chest pain Resp: Denies: dyspnea GI: Denies: nausea or vomiting Musc: Denies: neck pain Skin/Breast: Denies: rash or pruritus Neuro: Reports: headache(s); Denies: confusion Psych: Denies: anxiety Benjy/Lymph: Denies: enlarged lymph nodes PFSH ED PFSH: Medical History Adrenal mass CHF (congestive heart failure) Chronic pain of lower extremity, bilateral Chronic pancreatitis 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 Primary osteoarthritis Recurrent vomiting Therapeutic opioid induced constipation Surgical History History of bilateral knee replacement History of cholecystectomy History of D&C 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 Family History Grandmother Cancer Lung disease Stroke Mother Lung disease Other A-fib CHF (congestive heart failure) Social History Smoking and tobacco status: never smoked Alcohol intake: never Household members: spouse Housing: House Marital status: Current occupational status: disabled History of recent travel: No Female Reproductive History: Date of last menstrual period: 11/02/21 Physical Exam Const: COMMON NORMALS: no acute distress, patient oriented x3, no limitations and well nourished GENERAL APPEARANCE: cooperative OTHER: Mild obesity HENMT: COMMON NORMALS: normocephalic and atraumatic HEAD & SCALP: normocephalic and atraumatic FACE & SINUS: normal facial exam Eye: COMMON NORMALS: EOMs intact bilaterally Neck/C-Spine: COMMON NORMALS: full ROM, no lymphadenopathy, supple and no men ingeal signs GENERAL: Yes normal visual inspection Lymph: LYMPHATIC: no lymphadenopathy noted Chest: COMMONS NORMALS: normal inspection of the chest and normal palpation of entire chest wall CHEST: No Ecchymosis present and No rash Resp: COMMON NORMALS: normal respiratory effort, No retractions and clear to auscultation bilaterally EFFORT & INSPECTION: No respiratory distress AUSCULTATION: clear to auscultation bilaterally Cardio: COMMON NORMALS: regular rhythm and Peripheral pulses 2+ throughout JUGULAR VENOUS DISTENTION: no JVD RHYTHM: regular rhythm PERIPHERAL PULSES: Peripheral pulses 2+ throughout OTHER: Tachycardia GI: OTHER: Mild obesity, mild epigastric vivi pain, normoactive bowel sounds. No abdominal bruits heard. Moderate right lower quadrant abdominal pain. No guarding or rebound. Back/Pelvis: OTHER: Mild right CVA tenderness Extremity: COMMON NORMALS: normal to inspection, full ROM and capillary refill normal Neuro: COMMON NORMALS: patient oriented x3, CN's II-XII intact bilaterally, no focal motor deficits and no sensory deficits noted MENINGEAL SIGNS: Yes no meningeal signs Psych: COMMON NORMALS: mental status grossly normal and Normal thought process present THOUGHT PROCESS: Normal thought process present Skin: COMMON NORMALS: no rashes or lesions noted and no wounds GENERAL SKIN EXAM: no rashes or lesions noted Course Vital Signs: Vital signs: Vital Signs Temperature 99.8 F H 12/02/21 16:51 Pulse Rate 94 12/02/21 18:54 Respiratory Rate 18 12/02/21 21:03 Blood Pressure 197/109 12/02/21 18:54 Pulse Oximetry 96 12/02/21 18:54 MDM - General Adult Medical Decision Making Hypertensive urgency, epigastric and right lower quadrant abdominal pain Lab Data : 12/02/21 18:51 12/02/21 18:51 Radiology Impressions Chest X-Ray 12/02/21 17:41 IMPRESSION: No acute findings. Laboratory Results WBC 17.1 10^3/uL (4.0-10.0) H 12/02/21 18:51 RBC 5.51 10^6/uL (4.1-5.3) H 12/02/21 18:51 Hgb 16.0 g/dL (11.5-15.3) H 12/02/21 18:51 Hct 48.6 % (37.0-47.0) H 12/02/21 18:51 MCV 88.2 fl (81-99) 12/02/21 18:51 MCH 29.0 pg (28.0-34.0) 12/02/21 18:51 MCHC 32.9 g/dL (30.0-36.0) 12/02/21 18:51 RDW 13.1 % (12.1-15.1) 12/02/21 18:51 Plt Count 274 10^3/cmm (130-400) 12/02/21 18:51 MPV 12.2 fL (7.4-10.4) H 12/02/21 18:51 Neut % (Auto) 72.0 % 12/02/21 18:51 Lymph % (Auto) 20.5 % 12/02/21 18:51 [place] % (Auto) 6.1 % 12/02/21 18:51 Eos % (Auto) 0.1 % 12/02/21 18:51 Baso % (Auto) 0.7 % 12/02/21 18:51 Neut # (Auto) 12.32 10^3/uL (1.8-7.7) H 12/02/21 18:51 Lymph # (Auto) 3.5 10^3/uL (0.8-4.8) 12/02/21 18:51 [place] # (Auto) 1.1 10^3/uL (0.2-0.9) H 12/02/21 18:51 Eos # (Auto) 0.0 10^3/uL (0.0-0.8) 12/02/21 18:51 Baso # (Auto) 0.1 10^3/uL (0.0-0.1) 12/02/21 18:51 Nucleated RBC % (auto) 0 % 12/02/21 18:51 Nucleated RBCs # 0.0 /100WBC 12/02/21 18:51 Sodium 137 mmol/L (136-145) 12/02/21 18:51 Potassium 4.2 mmol/L (3.5-5.1) 12/02/21 18:51 Chloride 100 mmol/L (98-107) 12/02/21 18:51 Carbon Dioxide 17 mmol/L (22-29) L 12/02/21 18:51 Anion Gap 24.2 (5-19) H 12/02/21 18:51 BUN 10 mg/dL (6-20) 12/02/21 18:51 Creatinine 0.6 mg/dL (0.5-0.9) 12/02/21 18:51 GFR Calculation 110.2 mL/min (90-130) 12/02/21 18:51 Glucose 111 mg/dL (65-115) 12/02/21 18:51 Calculated Osmolality 284 mOsm/kg (285-295) L 12/02/21 18:51 Calcium 10.1 mg/dL (8.5-10.5) 12/02/21 18:51 Total Bilirubin 0.4 mg/dL (0.15-1.2) 12/02/21 18:51 AST 64 U/L (0-32) H 12/02/21 18:51 ALT 40 U/L (0-33) H 12/02/21 18:51 Alkaline Phosphatase 130 IU/L (35-105) H 12/02/21 18:51 Troponin T Baseline 9 ng/L (0-10) 12/02/21 18:51 Total Protein 8.4 g/dL (6.6-8.7) 12/02/21 18:51 Albumin 4.4 g/dL (3.5-5.2) 12/02/21 18:51 Globulin 4.0 g/dL (1.3-4.6) 12/02/21 18:51 Lipase 19 U/L (13-60) 12/02/21 18:51 HCG, Qual Negative (Negative) 12/02/21 18:51 Urine Color Yellow (Yellow) 12/02/21 19:13 Urine Appearance Clear (CLEAR) 12/02/21 19:13 Urine pH 5 (5-7) 12/02/21 19:13 Ur Specific [place] 1.020 (1.005-1.030) 12/02/21 19:13 Urine Protein 1+ (Negative) H 12/02/21 19:13 Urine Glucose (UA) Norm (Normal) 12/02/21 19:13 Urine Ketones 1+ (Negative) H 12/02/21 19:13 Urine Blood Neg (Negative) 12/02/21 19:13 Urine Nitrate Negative (Negative) 12/02/21 19:13 Urine Bilirubin Neg (Negative) 12/02/21 19:13 Urine Urobilinogen 1 mg/dL (Negative) H 12/02/21 19:13 Ur Leukocyte Esterase Negative (Negative) 12/02/21 19:13 Urine RBC 0-4 /hpf (0-2) H 12/02/21 19:13 Urine WBC 0-4 /hpf (0-5) H 12/02/21 19:13 Ur Squamous Epith Cells 10-15 /hpf (0-5) H 12/02/21 19:13 Amorphous Sediment Not Reportable 12/02/21 19:13 Urine Bacteria 1+ /hpf (NONE) H 12/02/21 19:13 Urine Mucus Trace /hpf 12/02/21 19:13 Other Data care transitioned to Dr. Mcleod at shift change. Discharge Plan Discharge Patient Disposition: Xfer Short-Term Hosp Clinical Impression: Hypertensive urgency, Abdominal pain, right lower quadrant, Epigastric abdominal pain Chest pain Qualifiers: Chest pain type: unspecified Qualified Code(s): R07.9 - Chest pain, unspecified Condition: Stable Referrals: Yony Otero MD [Primary Care Provider] - Patient Instructions: Abdominal Pain (ED) Coding Level of Care Code ED Senior Electrical Designer for Chg Fwd Exam Comprehensive Documented by User: Vasquez Mcleod MD 12/02/21 21:22 HPI - General Adult General: Chief complaint: General Medical Stated complaint: High B/P Time Seen by Provider: 12/02/21 17:33 PFSH ED PFSH: Medical History Adrenal mass CHF (congestive heart failure) Chronic pain of lower extremity, bilateral Chronic pancreatitis 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 Primary osteoarthritis Recurrent vomiting Therapeutic opioid induced constipation Surgical History History of bilateral knee replacement History of cholecystectomy History of D&C 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 Family History Grandmother Cancer Lung disease Stroke Mother Lung disease Other A-fib CHF (congestive heart failure) Social History Smoking and tobacco status: never smoked Alcohol intake: never Household members: spouse Housing: House Marital status: Current occupational status: disabled History of recent travel: No Course Vital Signs: Vital signs: Vital Signs Temperature 99.8 F H 12/02/21 16:51 Pulse Rate 94 12/02/21 18:54 Respiratory Rate 18 12/02/21 21:03 Blood Pressure 197/109 12/02/21 18:54 Pulse Oximetry 96 12/02/21 18:54 MDM - General Adult Medical Decision Making Patient presents here with hypertensive emergency possible pheochromocytoma, she also has high output cardiomyopathy she sent here by her geotechnical engineering technician due to hypertensive vitals and her office visit today and wanting her transferred to tertiary center. I did speak to [facility] will transfer there as patien cosme has had high blood pressure here had to start her on a Cardene drip and will transfer her to [facility] for higher level of care Lab Data : 12/02/21 18:51 12/02/21 18:51 Radiology Impressions Chest X-Ray 12/02/21 17:41 IMPRESSION: No acute findings. Laboratory Results WBC 17.1 10^3/uL (4.0-10.0) H 12/02/21 18:51 RBC 5.51 10^6/uL (4.1-5.3) H 12/02/21 18:51 Hgb 16.0 g/dL (11.5-15.3) H 12/02/21 18:51 Hct 48.6 % (37.0-47.0) H 12/02/21 18:51 MCV 88.2 fl (81-99) 12/02/21 18:51 MCH 29.0 pg (28.0-34.0) 12/02/21 18:51 MCHC 32.9 g/dL (30.0-36.0) 12/02/21 18:51 RDW 13.1 % (12.1-15.1) 12/02/21 18:51 Plt Count 274 10^3/cmm (130-400) 12/02/21 18:51 MPV 12.2 fL (7.4-10.4) H 12/02/21 18:51 Neut % (Auto) 72.0 % 12/02/21 18:51 Lymph % (Auto) 20.5 % 12/02/21 18:51 [place] % (Auto) 6.1 % 12/02/21 18:51 Eos % (Auto) 0.1 % 12/02/21 18:51 Baso % (Auto) 0.7 % 12/02/21 18:51 Neut # (Auto) 12.32 10^3/uL (1.8-7.7) H 12/02/21 18:51 Lymph # (Auto) 3.5 10^3/uL (0.8-4.8) 12/02/21 18:51 [place] # (Auto) 1.1 10^3/uL (0.2-0.9) H 12/02/21 18:51 Eos # (Auto) 0.0 10^3/uL (0.0-0.8) 12/02/21 18:51 Baso # (Auto) 0.1 10^3/uL (0.0-0.1) 12/02/21 18:51 Nucleated RBC % (auto) 0 % 12/02/21 18:51 Nucleated RBCs # 0.0 /100WBC 12/02/21 18:51 Sodium 137 mmol/L (136-145) 12/02/21 18:51 Potassium 4.2 mmol/L (3.5-5.1) 12/02/21 18:51 Chloride 100 mmol/L (98-107) 12/02/21 18:51 Carbon Dioxide 17 mmol/L (22-29) L 12/02/21 18:51 Anion Gap 24.2 (5-19) H 12/02/21 18:51 BUN 10 mg/dL (6-20) 12/02/21 18:51 Creatinine 0.6 mg/dL (0.5-0.9) 12/02/21 18:51 GFR Calculation 110.2 mL/min (90-130) 12/02/21 18:51 Glucose 111 mg/dL (65-115) 12/02/21 18:51 Calculated Osmolality 284 mOsm/kg (285-295) L 12/02/21 18:51 Calcium 10.1 mg/dL (8.5-10.5) 12/02/21 18:51 Total Bilirubin 0.4 mg/dL (0.15-1.2) 12/02/21 18:51 AST 64 U/L (0-32) H 12/02/21 18:51 ALT 40 U/L (0-33) H 12/02/21 18:51 Alkaline Phosphatase 130 IU/L (35-105) H 12/02/21 18:51 Troponin T Baseline 9 ng/L (0-10) 12/02/21 18:51 Total Protein 8.4 g/dL (6.6-8.7) 12/02/21 18:51 Albumin 4.4 g/dL (3.5-5.2) 12/02/21 18:51 Globulin 4.0 g/dL (1.3-4.6) 12/02/21 18:51 Lipase 19 U/L (13-60) 12/02/21 18:51 HCG, Qual Negative (Negative) 12/02/21 18:51 Urine Color Yellow (Yellow) 12/02/21 19:13 Urine Appearance Clear (CLEAR) 12/02/21 19:13 Urine pH 5 (5-7) 12/02/21 19:13 Ur Specific [place] 1.020 (1.005-1.030) 12/02/21 19:13 Urine Protein 1+ (Negative) H 12/02/21 19:13 Urine Glucose (UA) Norm (Normal) 12/02/21 19:13 Urine Ketones 1+ (Negative) H 12/02/21 19:13 Urine Blood Neg (Negative) 12/02/21 19:13 Urine Nitrate Negative (Negative) 12/02/21 19:13 Urine Bilirubin Neg (Negative) 12/02/21 19:13 Urine Urobilinogen 1 mg/dL (Negative) H 12/02/21 19:13 Ur Leukocyte Esterase Negative (Negative) 12/02/21 19:13 Urine RBC 0-4 /hpf (0-2) H 12/02/21 19:13 Urine WBC 0-4 /hpf (0-5) H 12/02/21 19:13 Ur Squamous Epith Cells 10-15 /hpf (0-5) H 12/02/21 19:13 Amorphous Sediment Not Reportable 12/02/21 19:13 Urine Bacteria 1+ /hpf (NONE) H 12/02/21 19:13 Urine Mucus Trace /hpf 12/02/21 19:13 Discharge Plan Discharge Patient Disposition: Xfer Short-Term Hosp Clinical Impression: Hypertensive urgency, Abdominal pain, right lower quadrant, Epigastric abdominal pain Chest pain Qualifiers: Chest pain type: unspecified Qualified Code(s): R07.9 - Chest pain, unspecified Condition: Stable Referrals: Yony Otero MD [Primary Care Provider] - Patient Instructions: Abdominal Pain (ED) Coding Level of Care Code ED Senior Electrical Designer for Heather Fwd Exam Comprehensive
[2021-12-02] MEDS: labetalol 5 mg/mL SDV 20mL 20 MG IVP ×3 (18:46→22:45)
[2021-12-02] MEDS: HYDROmorphone 1 mg/mL INJ 1 mL 0.5 MG IVP (18:46)
[2021-12-02] MEDS: ondansetron 2 mg/ML SDV 2 mL 4 MG IVP ×2 (18:46→23:31)
[2021-12-02 19:03] LABS: Basophils # 0.1 10^3/uL (0.0-0.1); Basophils % 0.7 %; Eosinophils % 0.1 %; Hematocrit 48.6 % (37.0-47.0); Lymphocytes # 3.5 10^3/uL (0.8-4.8); Lymphocytes % 20.5 %; Mean Corpuscular HGB Conc 32.9 g/dL (30.0-36.0); Mean Corpuscular Volume 88.2 fl (81-99); Mean Platelet Volume 12.2 fL (7.4-10.4); Monocytes # 1.1 10^3/uL (0.2-0.9); Monocytes % 6.1 %; Neutrophils # 12.32 10^3/uL (1.8-7.7); Nucleated Red Blood Cells % 0 %; Platelet Count 274 10^3/cmm (130-400); Red Blood Count 5.51 10^6/uL (4.1-5.3); Red Cell Distribution Width 13.1 % (12.1-15.1); White Blood Count 17.1 10^3/uL (4.0-10.0)
[2021-12-02 19:20] LABS: HCG, Serum Qual Negative (Negative)
[2021-12-02] MEDS: acetaminophen 500 mg Tablet 1000 MG PO ×2 (19:26→23:11)
[2021-12-02 19:30] LABS: Alanine Aminotransferase 40 U/L (0-33); Albumin Level 4.4 g/dL (3.5-5.2); Alkaline Phosphatase 130 IU/L (35-105); Aspartate Amino Transferase 64 U/L (0-32); Blood Urea Nitrogen 10 mg/dL (6-20); Calcium 10.1 mg/dL (8.5-10.5); Carbon Dioxide 17 mmol/L (22-29); Chloride 100 mmol/L (98-107); Glomerular Filtration Rate 110.2 mL/min (90-130); Glucose 111 mg/dL (65-115); Lipase 19 U/L (13-60); Osmolality Calculated 284 mOsm/kg (285-295); Sodium 137 mmol/L (136-145); Total Bilirubin 0.4 mg/dL (0.15-1.2); Total Protein 8.4 g/dL (6.6-8.7)
[2021-12-02 19:31] LABS: Anion Gap 24.2 (5-19); Potassium 4.2 mmol/L (3.5-5.1)
[2021-12-02 19:35] LABS: Troponin(5th) Baseline 9 ng/L (0-10)
[2021-12-02] MEDS: labetalol 5 mg/mL SDV 20mL 10 MG IVP (20:18)
[2021-12-02 20:57] LABS: Add Urine Culture? No; Bacteria Urine 1+ /hpf; Bilirubin Urine Neg (Negative); Blood Urine Neg (Negative); Glucose Urine UA Norm (Normal); Ketones Urine 1+ (Negative); Leukocyte Esterase Urine Negative (Negative); Mucus Urine TRACE /hpf; Nitrate Urine Negative (Negative); Protein Urine 1+ (Negative); RBC Urine 0-4 /hpf (0-2); Urine Appearance Clear (CLEAR); Urine Color Yellow (Yellow); Urobilinogen Urine 1 mg/dL (Negative); WBC Urine 0-4 /hpf (0-5); pH Urine 5 (5-7)
[2021-12-02] MEDS: morphine 4 mg/mL SDV 1 mL IVP (21:03)
[2021-12-02] MEDS: nicardipine 20 MG/200 ML PREMIX 50 MG IV (21:46)
[2021-12-02] MEDS: diphenhydrAMINE 50 mg/mL SDV 1mL 25 MG IVP (22:24)
[2021-12-02] MEDS: LORazepam 2 mg/mL INJ 1 mL 1 MG IVP (22:24)
[2021-12-02] MEDS: hyDRALAzine 20 mg/mL INJ 1 mL 10 MG IVP (22:28)
--- NOTE | 2021-12-02 23:09 | PC.NURSE ---
nausea started after infusion initiated, reports feeling like she was hit in chest. MD notified and at bedside, states to drop infusion rate to 2.0mg/kg/min. medicated per dec.
[2021-12-02] MEDS: famotidine 20 mg/2 mL INJ 40 MG IVP (23:11)
[2021-12-02] MEDS: prazosin 5 mg Capsule PO (23:31)
--- NOTE | 2021-12-02 23:31 | PC.NURSE ---
noted with active vomiting, medicated per mar and PO meds given prior to leaving unit with life flight.
--- NOTE | 2021-12-02 23:46 | PC.NURSE ---
patient transported out via life flight. emesis of minipress prior to leaving.
== END 2021-12-02 23:48 | disposition short-term general hospital (02) ==
PROVIDERS: Family Medicine; Emergency Provider Emergency Medicine; PCP Internal Medicine
DX: I16.0 Hypertensive urgency (principal); R10.13 Epigastric pain; R10.31 Right lower quadrant pain; R07.9 Chest pain, unspecified; I11.0 Hypertensive heart disease with heart failure; I50.9 Heart failure, unspecified; E11.9 Type 2 diabetes mellitus without complications; K86.1 Other chronic pancreatitis; E27.8 Other specified disorders of adrenal gland; I42.1 Obstructive hypertrophic cardiomyopathy
CPT/HCPCS: 71045; 80053; 81001; 83690; 84484; 84703; 85025; 87086; 93005; 96365; 96367; 96375; 96376; 99205; 99291; J0360; J1170; J1200; J2060; J2270; J2405; J3490

== ENCOUNTER 2022-06-08 11:23 | Observation (INO) | payer MEDICARE, MEDICAID, SELFPAY ==
[2022-06-08] VITALS (59 sets, daily range): BP systolic 77–204; BP diastolic 39–154; PULSE 77–113; RESP 10–27; TEMP 36.6–36.7; O2SAT 89–98; BMI 37.8
--- NOTE | 2022-06-08 11:55 | CT_ITS ---
WS: [id number] CT HEAD TECHNIQUE: Noncontrast CT of the head obtained from the skullbase to the vertex. CLINICAL INFORMATION: headache and vmoiting COMPARISON: CT head October 25, 2021 DLP: 1016.[address] scans at [facility] use at least one of these dose optimization techniques: automated e xposure control; mA and/or kV adjustment per patient size (includes targeted exams where dose is matc hed to clinical indication); or iterative reconstruction. FINDINGS: No evidence of intracranial hemorrhage or mass effect. Ventricular system and basal cisterns are villa nt. No extra-axial fluid collections. No evidence of mass or mass effect. Normal charles-white differen tiation. Paranasal sinuses and mastoid air cells are well aerated. .Normal visualized soft tissues. CT/CT head wo con* [id number] IMPRESSION: 1. No evidence of intracranial hemorrhage or mass effect. 2. Normal charles-white differentiation. 3. No acute intracranial findings.
--- NOTE | 2022-06-08 12:07 | W.ED.GENADLT ---
HPI - General Adult General: Chief complaint: Headache Stated complaint: n/v, High BP Time Seen by Provider: 06/08/22 11:55 History of Present Illness: CC: Elevated BP HPI: [42]yo patient w/ x hx of HTN on hydalazine/losartan, L sided adrenal mass presenting to the ED with complaints that his BP is not well controlled in the last 2 days. She states, patient has been having this intermittent pressure-like headache associated with vomiting. Patient has had more than 4 episodes of vomiting in the last 2 days. Patient denies any focal neurological deficit, slurring of speech, facial droop, vision changes or diplopia. Denies chest pain, SOB, palpitation, N/V/D, pain radiating to the shoulder, headache, vision changes, LOC, or focal neurological deficits. Patient also denies light-headedness, syncope, vertigo abdominal pain, back pain. Tolerating PO meds without issues. Onset: 2 days ago Duration: ongoing Location: home Severity: moderate Associated symptoms: Reports headache(s), nausea and vomiting; Deny chest pain, dyspnea, rash or palpitations Review of Systems Const: Denies: fever(s) or chills Eyes: Denies: change in vision ENMT: Denies: mouth pain Card: Denies: chest pain or palpitations Resp: Denies: dyspnea or non-productive cough GI: Reports: nausea and vomiting; Denies: abdominal pain or diarrhea : Denies: dysuria Musc: Denies: extremity pain Skin/Breast: Denies: rash or new lesions Neuro: Reports: headache(s); Denies: weakness in extremities Psych: Reports: other (Normal mood) Benjy/Lymph: Denies: easy bruising PFSH ED PFSH: Medical History Adrenal mass CHF (congestive heart failure) Chronic pain of lower extremity, bilateral Chronic pancreatitis 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 Primary osteoarthritis Recurrent vomiting Therapeutic opioid induced constipation Surgical History History of bilateral knee replacement History of cholecystectomy History of D&C 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 Family History Grandmother Cancer Lung disease Stroke Mother Lung disease Other A-fib CHF (congestive heart failure) Social History Smoking and tobacco status: never smoked Alcohol intake: never Household members: spouse Housing: House Marital status: Current occupational status: disabled History of recent travel: No Female Reproductive History: Date of last menstrual period: 11/02/21 Physical Exam Const: COMMON NORMALS: alert HENMT: COMMON NORMALS: atraumatic HEAD & SCALP: atraumatic MOUTH: moist mucous membranes not abnormal Eye: COMMON NORMALS: EOMs intact bilaterally and conjunctivae normal CONJUNCTIVA: Yes conjunctivae normal Neck/C-Spine: COMMON NORMALS: full ROM and supple Resp: COMMON NORMALS: normal respiratory effort and clear to auscultation bilaterally AUSCULTATION: clear to auscultation bilaterally Cardio: COMMON NORMALS: regular rate RATE: regular rate GI: COMMON NORMALS: Soft to palpation and non-tender PALPATION: Yes Soft to palpation Extremity: COMMON NORMALS: full ROM Neuro: SENSORIUM/ORIENTATION: Yes alert MOTOR EXAM: No Abnormal motor strength present and Other motor observations present (no focal motor deficits) Psych: COMMON NORMALS: speech normal SPEECH: Yes normal speech MOOD & AFFECT: Yes euthymic mood Course Vital Signs: Vital signs: Vital Signs Temperature 98.1 F 06/08/22 11:48 Pulse Rate 91 06/08/22 11:48 Respiratory Rate 15 06/08/22 11:48 Blood Pressure 203/101 06/08/22 15:02 Pulse Oximetry 97 06/08/22 11:48 Oxygen Delivery Me thod 06/08/22 11:48 MDM - General Adult Medical Decision Making [42]yo patient w/ hx of HTN on multiple agents presenting to the ED with high BP readings x 1 day without other medical complaints. BP in the ED of >200 systoli. Lab work-up did not show signs of end-organ damage. CT has negative for any acute finding. Patient does have significant elevated blood pressure despite hydralazine 40 mg, amlodipine 10 mg and the feta pain 90 mg. I have we will admit patient for further work-up of adrenal mass and hypertensive crisis. Dr. Kaur recommend consulting Dr. Dejesus who will follow the case. Disposition: admission Lab Data : 06/08/22 12:34 06/08/22 12:[address] 06/08/22 11:55 IMPRESSION: 1. No evidence of intracranial hemorrhage or mass effect. 2. Normal charles-white differentiation. 3. No acute intracranial findings. Laboratory Results WBC 13.8 10^3/uL (4.0-10.0) H 06/08/22 12:34 RBC 5.09 10^6/uL (4.1-5.3) 06/08/22 12:34 Hgb 14.6 g/dL (11.5-15.3) 06/08/22 12:34 Hct 47.0 % (37.0-47.0) 06/08/22 12:34 MCV 92.3 fl (81-99) 06/08/22 12:34 MCH 28.7 pg (28.0-34.0) 06/08/22 12:34 MCHC 31.1 g/dL (30.0-36.0) 06/08/22 12:34 RDW 13.4 % (12.1-15.1) 06/08/22 12:34 Plt Count 253 10^3/cmm (130-400) 06/08/22 12:34 MPV 11.4 fL (7.4-10.4) H 06/08/22 12:34 Neut % (Auto) 61.2 % 06/08/22 12:34 Lymph % (Auto) 30.2 % 06/08/22 12:34 [place] % (Auto) 6.9 % 06/08/22 12:34 Eos % (Auto) 0.4 % 06/08/22 12:34 Baso % (Auto) 0.7 % 06/08/22 12:34 Neut # (Auto) 8.45 10^3/uL (1.8-7.7) H 06/08/22 12:34 Lymph # (Auto) 4.2 10^3/uL (0.8-4.8) 06/08/22 12:34 [place] # (Auto) 1.0 10^3/uL (0.2-0.9) H 06/08/22 12:34 Eos # (Auto) 0.1 10^3/uL (0.0-0.8) 06/08/22 12:34 Baso # (Auto) 0.1 10^3/uL (0.0-0.1) 06/08/22 12:34 Nucleated RBC % (auto) 0 % 06/08/22 12:34 Nucleated RBCs # 0.0 /100WBC 06/08/22 12:34 Sodium 139 mmol/L (136-145) 06/08/22 12:34 Potassium 4.6 mmol/L (3.5-5.1) 06/08/22 12:34 Chloride 100 mmol/L (98-107) 06/08/22 12:34 Carbon Dioxide 23 mmol/L (22-29) 06/08/22 12:34 Anion Gap 20.6 (5-19) H 06/08/22 12:34 BUN 16 mg/dL (6-20) 06/08/22 12:34 Creatinine 0.7 mg/dL (0.5-0.9) 06/08/22 12:34 GFR Calculation 91.8 mL/min (90-130) 06/08/22 12:34 Glucose 127 mg/dL (65-115) H 06/08/22 12:34 Calculated Osmolality 291 mOsm/kg (285-295) 06/08/22 12:34 Calcium 9.5 mg/dL (8.5-10.5) 06/08/22 12:34 Troponin T Baseline 7 ng/L (0-10) 06/08/22 13:25 Troponin T 120 Minute 6.62 ng/L (0-10) 06/08/22 15:12 Imaging Data Other Imaging: Radiologist's impression: [address] [address] [address] Scan Report Signed Patient: Eleanor Ragland Unit #: [id number] : 1980 Age/Sex: 42 / F ADM Date: 06/08/22 Loc: ER Room/Bed: Attending Dr: Ordering Provider/Ordering MD: Paramjit Duong MD Date of Service: 06/08/22 Procedure(s): CT head wo con* [id number] Accession Number(s): [id number] Report Number: [id number] WS: [id number] CT HEAD TECHNIQUE: Noncontrast CT of the head obtained from the skullbase to the vertex. CLINICAL INFORMATION: headache and vmoiting COMPARISON: CT head October 25, 2021 DLP: 1016.[address] scans at [facility] use at least one of these dose optimization techniques: automated exposure control; mA and/or kV adjustment per patient size (includes targeted exams where dose is matched to clinical indication); or iterative reconstruction. FINDINGS: No evidence of intracranial hemorrhage or mass effect. Ventricular system and basal cisterns are patent.? No extra-axial fluid collections. No evidence of mass or mass effect. Normal charles-white differentiation. Paranasal sinuses and mastoid air cells are well aerated. .Normal visualized soft tissues. CT/CT head wo con* [id number] IMPRESSION: ? 1.? No evidence of intracranial hemorrhage or mass effect. 2.? Normal charles-white differentiation. 3.? No acute intracranial findings. ? Dictated By: Brian Brody MD Signed By: Brian Brody MD Signed Date/Time: 06/08/22 1233 DD/ 1227 Discharge Plan Discharge Clinical Impression: Headache, Hypertension Condition: Stable Prescriptions: No Action (DME) wheelchair See Rx Instructions .Route .MEDSUPPLY Qty: 1 0RF Rx Instructions: patient needs replacement chair. (DME) STANDARD WHEELCHAIR See Rx Instructions .Route .MEDSUPPLY Qty: 1 0RF Rx Instructions: As directed furosemide 20 mg tablet 20 mg PO DAILY PRN (Reason: edema) Qty: 30 0RF (DME) wheelchair See Rx Instructions .Route .MEDSUPPLY Qty: 1 0RF Rx Instructions: As directed Zenpep 40,000-126,000- 168,000 unit capsule,delayed release(DR/EC) 1 cap PO TID Qty: 90 8RF Rx Instructions: administer with meals and/or snacks ondansetron HCl 4 mg tablet 4 mg PO Q8H PRN (Reason: nausea and vomiting) Qty: 20 2RF zolpidem 5 mg tablet 5 mg PO BEDTIME PRN (Reason: Sleep) Qty: 30 3RF Briviact 25 mg tablet 25 mg PO DAILY@08 Qty: 60 0RF tizanidine 4 mg tablet 8 mg PO TID PRN (Reason: muscle spasticity) 30 Days Qty: 180 3RF pantoprazole 40 mg tablet,delayed release (DR/EC) 40 mg PO BID@08,20 Qty: 90 3RF morphine 30 mg tablet extended release 30 mg PO Q12H 30 Days Qty: 60 0RF Rx Instructions: at 0800/2000 diphenhydramine HCl [Benadryl] 25 mg Capsule 25 mg PO Q6H PRN (Reason: Allergy Symptoms) polyethylene glycol 3350 [Miralax] 17 gram/dose Powder 17 g PO QAM PRN (Reason: Constipation) lorazepam [Ativan] 0.5 mg tablet 0.5 mg PO DAILY PRN (Reason: agitation) Qty: 7 0RF carvedilol 12.5 mg tablet 12.5 mg PO BID prochlorperazine maleate 10 mg tablet 10 mg PO Q8H PRN (Reason: Nausea And Vomiting) hydralazine 10 mg tablet 10 mg PO Q8H PRN (Reason: Blood Pressure) Referrals: Yony Otero MD [Primary Care Provider] - Coding Level of Care Code ED Mining Technician for g Fwd Exam Comprehensive
--- NOTE | 2022-06-08 12:08 | ECG_ITS ---
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 Measurements Intervals [place] Rate: 85 P: 34 NV: 127 QRS: 4 QRSD: 93 T: 1 QT: 356 QTc: 426 Interpretive Statements SINUS RHYTHM WITH SINUS ARRHYTHMIA LEFT VENTRICULAR HYPERTROPHY AND ST-T CHANGE PROBABLE ANTERIOR MYOCARDIAL INFARCTION , PROBABLY OLD INFERIOR MYOCARDIAL INFARCTION , PROBABLY OLD Compared to ECG 12/02/2021 17:50:26 Sinus tachycardia no longer present ST (T wave) deviation still present Myocardial infarct finding still present Electronically Signed On 06-08-2022 16:33:18 CDT by Sola Espitia M.D. [id number]
[2022-06-08 12:42] LABS: Basophils # 0.1 10^3/uL (0.0-0.1); Basophils % 0.7 %; Eosinophils # 0.1 10^3/uL (0.0-0.8); Eosinophils % 0.4 %; Hemoglobin 14.6 g/dL (11.5-15.3); Lymphocytes # 4.2 10^3/uL (0.8-4.8); Lymphocytes % 30.2 %; Mean Corpuscular HGB Conc 31.1 g/dL (30.0-36.0); Mean Corpuscular Hemoglobin 28.7 pg (28.0-34.0); Mean Corpuscular Volume 92.3 fl (81-99); Mean Platelet Volume 11.4 fL (7.4-10.4); Monocytes % 6.9 %; Neutrophils # 8.45 10^3/uL (1.8-7.7); Neutrophils % 61.2 %; Nucleated Red Blood Cells % 0 %; Platelet Count 253 10^3/cmm (130-400); Red Blood Count 5.09 10^6/uL (4.1-5.3); Red Cell Distribution Width 13.4 % (12.1-15.1); White Blood Count 13.8 10^3/uL (4.0-10.0)
[2022-06-08 13:01] LABS: Blood Urea Nitrogen 16 mg/dL (6-20); Calcium 9.5 mg/dL (8.5-10.5); Carbon Dioxide 23 mmol/L (22-29); Chloride 100 mmol/L (98-107); Glomerular Filtration Rate 91.8 mL/min (90-130); Glucose 127 mg/dL (65-115); Osmolality Calculated 291 mOsm/kg (285-295); Sodium 139 mmol/L (136-145)
[2022-06-08 13:04] LABS: Anion Gap 20.6 (5-19); Potassium 4.6 mmol/L (3.5-5.1)
[2022-06-08] MEDS: amlodipine 5 mg Tablet 10 MG PO (13:23)
[2022-06-08] MEDS: hyDRALAzine 20 mg/mL INJ 1 mL IVP (13:24)
[2022-06-08] MEDS: ondansetron 2 mg/ML SDV 2 mL 4 MG IVP (13:24)
[2022-06-08] MEDS: metoclopramide 5 mg/mL SDV 2 mL 10 MG IVP (13:24)
[2022-06-08] MEDS: sodium chloride 0.9% 1,000 ML 999 ML IV (13:24)
[2022-06-08] MEDS: morphine 4 mg/mL SDV 1 mL 2 MG IVP (13:51)
[2022-06-08 14:02] LABS: Troponin(5th) Baseline 7 ng/L (0-10)
--- NOTE | 2022-06-08 14:08 | ECG_ITS ---
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 Measurements Intervals [place] Rate: 101 P: 60 MT: 139 QRS: -3 QRSD: 97 T: 102 QT: 353 QTc: 459 Interpretive Statements SINUS TACHYCARDIA POSSIBLE LEFT ATRIAL ENLARGEMENT [-0.1mV P-WAVE IN V1/V2] LEFT VENTRICULAR HYPERTROPHY AND ST-T CHANGE ANTERIOR MYOCARDIAL INFARCTION , PROBABLY OLD INFERIOR MYOCARDIAL INFARCTION , PROBABLY OLD Compared to ECG 06/08/2022 12:20:42 Sinus rhythm no longer present Sinus arrhythmia no longer present ST (T wave) deviation still present Myocardial infarct finding still present Electronically Signed On 06-08-2022 16:39:27 CDT by Sola Espitia M.D. [id number]
[2022-06-08] MEDS: LORazepam 1 mg Tablet PO (15:38)
[2022-06-08 15:44] LABS: Troponin 5 2HR 6.62 ng/L (0-10)
[2022-06-08 17:34] LABS: Troponin 5 2HR Delta -0.38 ABS# (0-10)
[2022-06-08] MEDS: doxazosin 4 mg Tablet PO ×2 (17:35→20:32)
--- NOTE | 2022-06-08 18:57 | P.HP_ITS ---
Providers/Chief Complaint Admitting Physician: Brian Kaur MD Primary Care Provider: Yony Otero MD Chief Complaint: n/v, High BP History of Present Illness Eleanor Ragland is a 42 year old female with history of chronic pancreatitis she states resulting from medication years ago. She also has labile hypertension and intermittent elevation in her urine catecholamines suspicious for pheochromocytoma. She has a modest left-sided adrenal mass and she tells me that her urine test has been collected 3 times all positive for catecholamine elevation. She is not real specific on the terms but seems to be confident that they were abnormal. I do not have those records Review of Systems Narrative: Patient has had nausea headache Blood pressure greater than 200 systolic last 2 days 3 days ago was about 160 but she was noticing problems. Patient states that her blood pressure can be very high over 200s and other times be almost undetectable Medications/Allergies Home Medications Medication Instructions Recorded Confirmed Last Taken Type wheelchair #1 ea 03/26/21 06/08/22 Unknown Rx wheelchair #1 ea 05/28/21 06/08/22 Unknown Rx STANDARD WHEELCHAIR #1 ea 05/29/21 06/08/22 Unknown Rx diphenhydramine HCl 25 mg capsule 25 mg PO Q6H PRN Allergy Symptoms 10/26/21 06/08/22 Unknown History (Benadryl) polyethylene glycol 3350 17 17 g PO QAM PRN Constipation 10/26/21 06/08/22 Unknown History gram/dose oral powder (Miralax) furosemide 20 mg tablet 20 mg PO DAILY PRN edema #30 tabs 11/13/21 06/08/22 Unknown Rx lorazepam 0.5 mg tablet (Ativan) 0.5 mg PO DAILY PRN agitation #7 11/19/21 06/08/22 Unknown Rx tabs [id number] 1 cap PO TID #90 caps 12/31/21 06/08/22 06/07/22 Rx 40,000-126,000-168,000 unit capsule, delay rel (Zenpep) ondansetron HCl 4 mg tablet 4 mg PO Q8H PRN nausea and 03/10/22 06/08/22 Unknown Rx vomiting #20 tabs brivaracetam 25 mg tablet 25 mg PO DAILY@08 #60 tabs 03/29/22 06/08/22 06/08/22 Rx (Briviact) zolpidem 5 mg tablet 5 mg PO BEDTIME PRN Sleep #30 tabs 03/29/22 06/08/22 06/07/22 Rx tizanidine 4 mg tablet 8 mg PO TID PRN muscle spasticity 04/19/22 06/08/22 06/07/22 Rx 30 days #180 tabs pantoprazole 40 mg tablet,delayed 40 mg PO BID@08,20 #90 tabs 05/18/22 06/08/22 06/07/22 Rx release morphine 30 mg tablet,extended 30 mg PO Q12H 1 month #60 tabs 06/03/22 06/08/22 06/07/22 Rx release carvedilol 12.5 mg tablet 12.5 mg PO BID 06/08/22 06/08/22 06/07/22 History hydralazine 10 mg tablet 10 mg PO Q8H PRN Blood Pressure 06/08/22 06/08/22 06/07/22 History prochlorperazine maleate 10 mg 10 mg PO Q8H PRN Nausea And 06/08/22 06/08/22 06/07/22 History tablet Vomiting Allergies Allergy/AdvReac Type Severity Reaction Status Date / Time canagliflozin [From Invokana] Allergy Severe abdominal Verified 06/08/22 13:32 pain aspirin Allergy Unknown Verified 06/08/22 13:32 ketorolac [From Toradol] Allergy Unknown Verified 06/08/22 13:32 nicardipine Allergy ALGY-Difficulty Verified 06/08/22 13:32 Breathing tramadol [From Ultram] Allergy Unknown Verified 06/08/22 13:32 PFSH Acute PFSH: Medical History (Updated 06/08/22 @ 19:07 by Brian Kaur MD) Adrenal mass CHF (congestive heart failure) Chronic pain of lower extremity, bilateral Chronic pancreatitis 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 Primary osteoarthritis Recurrent vomiting Therapeutic opioid induced constipation Surgical History History of bilateral knee replacement History of cholecystectomy History of D&C 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 Family History Grandmother Cancer Lung disease Stroke Mother Lung disease Other A-fib CHF (congestive heart failure) Social History Smoking and tobacco status: never smoked Alcohol intake: never Household members: spouse Housing: House Marital status: Current occupational status: disabled History of recent travel: No Female Reproductive History: Date of last menstrual period: 11/02/21 Vitals/I&O/Wt Last Vital Signs Temp 98.1 F 06/08/22 11:48 Pulse 88 06/08/22 18:48 Resp 16 06/08/22 18:48 BP 188/94 06/08/22 18:48 Pulse Ox 94 06/08/22 18:48 O2 Del Method 06/08/22 11:48 Physical Exam Narrative: General well-developed well-nourished overweight female in no acute cardiopulmonary stress She does appear to be uncomfortable and mildly anxious Blood pressure now 132/82 following Cardura given in the emergency department CV regular rhythm borderline tachycardic Lungs clear to auscultation bilateral Abdomen positive bowel sounds soft nontender Calves 1+ edema bilaterally Data : 06/08/22 12:34 06/08/22 12:34 A&P Assessment and plan (1) Hypertensive urgency: Patient with blood pressure out of control nausea and headache today. CT head no bleed Started on Cardura which if she indeed has pheochromocytoma should help to stabilize her blood pressure. Will obtain old records from [place] and also from [facility] Patient's special events director in [place] is Dr. Lamb Patient's was present at bedside and patient's aunt on the phone Status: Acute (2) HOCM (hypertrophic obstructive cardiomyopathy): She has been told by her special events director that she needs her adrenal mass removed so that her hormonal blood pressure problem can be stabilized. She tells me she has a bicuspid aortic valve in addition to HOCM Status: Acute (3) Adrenal mass: Obtain lab records. Spot urine tests were not particularly elevated that I have available on old record Status: Acute Attestations Medical Necessity Statement*: Patient admitted the ICU for management of hypertensive urgency Critical Care Time: 55 minutes critical care time Coding Level of Care Code Acute Senior Visual Designer for Chg Fwd History Comprehensive Exam Detailed Medical Decision Making High Complexity Diagnoses Hypertensive urgency I16.0 HOCM (hypertrophic obstructive cardiomyopathy) I42.1 Adrenal mass E27.8
[2022-06-08] MEDS: zolpidem 5 mg Tablet PO (20:32)
[2022-06-08] MEDS: sodium chloride 0.9% 1,000 ML 150 ML IV (20:33)
[2022-06-09] VITALS (146 sets, daily range): BP systolic 72–220; BP diastolic 44–119; PULSE 78–122; RESP 10–33; TEMP 36.7–36.9; O2SAT 88–99; BMI 37.8
[2022-06-09] MEDS: ondansetron 2 mg/ML SDV 2 mL 4 MG IVP ×2 (00:45→19:58)
[2022-06-09] MEDS: LORazepam 0.5 mg Tablet PO ×4 (03:34→20:19)
[2022-06-09 04:34] LABS: Basophils # 0.1 10^3/uL (0.0-0.1); Basophils % 0.5 %; Eosinophils % 0.2 %; Hematocrit 38.7 % (37.0-47.0); Hemoglobin 12.6 g/dL (11.5-15.3); Lymphocytes # 2.7 10^3/uL (0.8-4.8); Lymphocytes % 21.5 %; Mean Corpuscular HGB Conc 32.6 g/dL (30.0-36.0); Mean Corpuscular Hemoglobin 28.7 pg (28.0-34.0); Mean Corpuscular Volume 88.2 fl (81-99); Mean Platelet Volume 11.2 fL (7.4-10.4); Monocytes % 7.7 %; Neutrophils # 8.86 10^3/uL (1.8-7.7); Neutrophils % 69.5 %; Nucleated Red Blood Cells % 0 %; Platelet Count 215 10^3/cmm (130-400); Red Blood Count 4.39 10^6/uL (4.1-5.3); Red Cell Distribution Width 13.5 % (12.1-15.1); White Blood Count 12.8 10^3/uL (4.0-10.0)
[2022-06-09 04:48] LABS: Alanine Aminotransferase 28 U/L (0-33); Albumin Level 3.5 g/dL (3.5-5.2); Alkaline Phosphatase 98 U/L (35-105); Blood Urea Nitrogen 13 mg/dL (6-20); Calcium 8.8 mg/dL (8.5-10.5); Carbon Dioxide 25 mmol/L (22-29); Chloride 101 mmol/L (98-107); Globulin 2.9 g/dL (1.3-4.6); Glomerular Filtration Rate 78.7 mL/min (90-130); Glucose 179 mg/dL (65-115); Osmolality Calculated 287 mOsm/kg (285-295); Sodium 136 mmol/L (136-145); Total Bilirubin 0.4 mg/dL (0.15-1.2); Total Protein 6.4 g/dL (6.6-8.7)
[2022-06-09 04:58] LABS: Anion Gap 14.1 (5-19); Aspartate Amino Transferase 31 U/L (0-32); Potassium 4.1 mmol/L (3.5-5.1)
[2022-06-09] MEDS: doxazosin 4 mg Tablet PO (05:53)
[2022-06-09] MEDS: labetalol 300 MG in sodium chloride 0.9% 240 ML 30 MG IV (06:43)
--- NOTE | 2022-06-09 07:57 | PC.NURSE ---
Reported patient c/o urinary retention to Dr. Kaur. Bladder scan volume of 205 ml was also reported at this time.
[2022-06-09] MEDS: lactated ringers 1,000 ML 500 ML IV ×2 (08:11→10:36)
[2022-06-09] MEDS: pantoprazole DR 40 mg Tablet PO (09:40)
[2022-06-09] MEDS: morphine ER (12 HR) 30 mg tablet PO ×2 (09:40→20:58)
--- NOTE | 2022-06-09 09:48 | P.PN_ITS ---
Subjective Subjective: Overnight the patient was on Cardura then hydralazine. Unclear to me why labetalol drip was not started until 7 this morning but urine output has been low bolstered by saline and now blood pressure is been low even off labetalol. Old records have been requested regarding her urine tests and will try to speak with the local indoor sports centre manager who has seen the patient outpatient before. Also requesting test from [place] and her consult with indoor sports centre manager at [facility] Medications: Reviewed: Yes Vitals/I&O/Wt Last Vital Signs Temp 97.8 F 06/08/22 20:00 Pulse 108 H 06/09/22 05:30 Resp 18 06/09/22 06:41 BP 157/81 06/09/22 05:30 Pulse Ox 95 06/09/22 05:30 O2 Del Method 06/08/22 20:11 06/08/22 06/09/22 06/09/22 22:59 06:59 14:59 Intake Total 1000 / 1000 82.5 / 82.5 Output Total 500 / 500 200 / 700 Balance 500 / 500 -200 / 300 82.5 / 82.5 Weight last 48 hrs Weight 87.997 kg Weight 87.997 kg Physical Exam Narrative: General well-developed well-nourished overweight female in no acute cardiopulmonary stress appears fatigued Blood pressure now 132/82 following Cardura given in the emergency department CV regular rhythm Lungs clear to auscultation bilateral Abdomen positive bowel sounds soft nontender Calves no edema Skin warm and dry Data : 06/09/22 04:18 06/09/22 04:18 A&P Assessment and plan (1) Hypertensive urgency: Blood pressure now low headache and nausea resolved patient feels fatigued with her low blood pressure Started on Cardura which if she indeed has pheochromocytoma should help to stabilize her blood pressure. Will obtain old records from [place] and also from [facility] Patient's business employment specialist in [place] is Dr. Lamb Patient's was present at bedside Status: Acute (2) HOCM (hypertrophic obstructive cardiomyopathy): She has been told by her business employment specialist that she needs her adrenal mass removed so that her hormonal blood pressure problem can be stabilized. She tells me she has a bicuspid aortic valve in addition to HOCM Additional fluid boluses to total 2 L this morning Status: Acute (3) Adrenal mass: Obtain lab records. Spot urine tests were not particularly elevated that I have available on old record Status: Acute Attestations Medical Necessity Statement*: Patient will remain in the ICU for management of labile hypertension, hypotension and to rehydrate Time Spent in Patient Care: 35 minutes spent in evaluation coronation care for this patient today Coding Level of Care Code Acute Manufacturing Technology Professor for Heather Roman History Comprehensive Exam Detailed Medical Decision Making High Complexity Diagnoses Hypertensive urgency I16.0 HOCM (hypertrophic obstructive cardiomyopathy) I42.1 Adrenal mass E27.8
--- NOTE | 2022-06-09 10:58 | PC.CHAP ---
Pastoral Care Encounter/Spiritual Assessment Type of Contact [] Declined facility mechanic visit [] Patient/Family/Request visit [] Outpatient visit [] Follow-up visit [] Physician referral [] Code/Alert [x] Routine visit [] Staff referral [] Actively dying [x] Patient sleeping [x] Family support [] [] Out of room [] Palliative care [] [] Receiving care in room [] Pre-surgical visit [] Trauma [] Long length of stay [x] ICU visit [x] Other: spoke to .. for comfort Relational/Emotional Strength [] Patient feels connected with others/family/visitors/staff [] Distress [] Loneliness/isolation [] Abandonment Spirituality of Patient [] Person of [place] [] Attends Jainism of their [place] [] Believes in Prayer [] Reads Bible or Mandaen materials [] There are Spiritual issues to be addressed [employer] Nurse Interventions [x] Prayer [] Active listening [] Non-anxious presence [] Spiritual/emotional support [] Crisis/trauma care [] Spiritual counseling [] Bereavement support [] Provided bereavement packet [] Provided Bible/devotional materials [] Provided toy/stuffed animal, coloring book to patient or family member [] Provided Communion [] Anointing/[place] [] Salvation [x] Completed spiritual assessment [] Other: Impact on Illness or Injury [] Angry [] Fearful [] Anxious [] Often cries [] Exhaustion [] Unable to work [] Unable to attend anabaptism [] Unable to walk/stand [] Unable to read [] Unable to drive [] Unable to eat/drink [] Unable to sleep [] Unable to be with family [] Patient intubated [] Other: Summary Time spent with patient
[2022-06-09] MEDS: sodium chloride 0.9% 1,000 ML 150 ML IV ×2 (12:28→19:05)
[2022-06-09] MEDS: acetaminophen 500 mg Tablet 1000 MG PO (14:35)
--- NOTE | 2022-06-09 16:59 | PC.NURSE ---
Dr. Kaur and Dr. Dejesus both at bedside. Both physicians spoke with patient at length. Per physician/patient conversation, physicians state likelihood of pheochromocytoma is low given the response to current medication regimen. Physicians state plan for patient is to change BP management medications, and set up discharge appointments with a primary care provider who is able to address patients needs post discharge. Patient utilizes teach back and verbalizes understanding of plan. Patient agrees to this plan.
--- NOTE | 2022-06-09 17:05 | P.CONIM_ITS ---
Providers/Reason For Consult Consulting Physician/Specialty*: Pulmonary critical care medicine Reason for Consult*: Labile blood pressure Requesting Physician: Dr. Kaur Attending Physician: Brian Kaur MD Primary Care Provider: Yony Otero MD History of Present Illness History of Present Illness Eleanor Ragland is a 42 year old female who presented to the hospital yesterday. In the emergency department the patient was hypertensive and I had a conversation with the emergency room physician regarding that. The patient has a history of chronic pancreatitis. Additionally, she has a left adrenal nodule. There is a concern whether the patient has pheochromocytoma. I could find 1 elevated serum metanephrine level in October 2021. However, it appears that since then she has been evaluated by endocrinology here, in [facility] and in [place]. Depending on the note of the log sorter in [place] there suspicion for pheochromocytoma was very slim. The patient tells me that she was on carvedilol and hydralazine at home for blood pressure management and her blood pressure was more or less okay but recently it did get high. After she was hospitalized yesterday, the patient was in ICU. Her blood pressure initially remained stable. She did receive antihypertensive medications in the emergency department. She had received doxazosin orally for high blood pressure. She became hypotensive early this morning. She required IV fluid for that. Interestingly, the patient has evidence of hypertrophic obstructive cardiomyopathy, mild aortic stenosis and moderate aortic regurgitation with eccentric regurgitation jet hitting the mitral valve. The patient was seen and examined in the ICU. The patient appears to be comfortable and able to give me history. I had talked to her via FaceTime and he was visibly upset. When I started seeing the patient her blood pressure was 72/60 after about 5 m inutes of blood pressure was 125/55. She had a CT scan of her head yesterday which was completely normal. Review of Systems Narrative: General: No fevers chills night sweats, patient complains of fatigue Skin: No rash HEENT: No nasal congestion, rhinitis, sinusitis Neck: There is no neck swelling Respiratory: No cough, sputum production, wheezing or shortness of breath Cardiovascular: No chest pain Gastrointestinal: Reports nausea Musculoskeletal: No joint pain or swelling Neurological: Patient is awake alert and oriented x3, no paralysis, gross motor function is normal. Psychiatric: No anxiety or depression. Medications/Allergies Home Medications Medication Instructions Recorded Confirmed Last Taken Type wheelchair #1 ea 03/26/21 06/08/22 Unknown Rx wheelchair #1 ea 05/28/21 06/08/22 Unknown Rx STANDARD WHEELCHAIR #1 ea 05/29/21 06/08/22 Unknown Rx diphenhydramine HCl 25 mg capsule 25 mg PO Q6H PRN Allergy Symptoms 10/26/21 06/08/22 Unknown History (Benadryl) polyethylene glycol 3350 17 17 g PO QAM PRN Constipation 10/26/21 06/08/22 Unknown History gram/dose oral powder (Miralax) furosemide 20 mg tablet 20 mg PO DAILY PRN edema #30 tabs 11/13/21 06/08/22 Unknown Rx lorazepam 0.5 mg tablet (Ativan) 0.5 mg PO DAILY PRN agitation #7 11/19/21 06/08/22 Unknown Rx tabs zdopgh-hukgysyg-fsehzsj 1 cap PO TID #90 caps 12/31/21 06/08/22 06/07/22 Rx 40,000-126,000-168,000 unit capsule, delay rel (Zenpep) ondansetron HCl 4 mg tablet 4 mg PO Q8H PRN nausea and 03/10/22 06/08/22 Unknown Rx vomiting #20 tabs brivaracetam 25 mg tablet 25 mg PO DAILY@08 #60 tabs 03/29/22 06/08/22 06/08/22 Rx (Briviact) zolpidem 5 mg tablet 5 mg PO BEDTIME PRN Sleep #30 tabs 03/29/22 06/08/22 06/07/22 Rx tizanidine 4 mg tablet 8 mg PO TID PRN muscle spasticity 04/19/22 06/08/22 06/07/22 Rx 30 days #180 tabs pantoprazole 40 mg tablet,delayed 40 mg PO BID@08,20 #90 tabs 05/18/22 06/08/22 06/07/22 Rx release morphine 30 mg tablet,extended 30 mg PO Q12H 1 month #60 tabs 06/03/22 06/08/22 06/07/22 Rx release carvedilol 12.5 mg tablet 12.5 mg PO BID 06/08/22 06/08/22 06/07/22 History hydralazine 10 mg tablet 10 mg PO Q8H PRN Blood Pressure 06/08/22 06/08/22 06/07/22 History prochlorperazine maleate 10 mg 10 mg PO Q8H PRN Nausea And 06/08/22 06/08/22 06/07/22 History tablet Vomiting Allergies Allergy/AdvReac Type Severity Reaction Status Date / Time canagliflozin [From Invokana] Allergy Severe abdominal Verified 06/08/22 13:32 pain aspirin Allergy Unknown Verified 06/08/22 13:32 ketorolac [From Toradol] Allergy Unknown Verified 06/08/22 13:32 nicardipine Allergy ALGY-Difficulty Verified 06/08/22 13:32 Breathing tramadol [From Ultram] Allergy Unknown Verified 06/08/22 13:32 Current Medications Generic Name Dose Route Start Last Admin Trade Name Freq PRN Reason Stop Dose Admin Acetaminophen 1,000 mg 06/09/22 13:58 06/09/22 14:35 Acetaminophen 500 Mg Tablet PO 1,000 mg Q6H PRN Administration MILD PAIN OR INCREASE TEMP Doxazosin Mesylate 4 mg 06/08/22 21:00 06/09/22 05:53 Doxazosin 4 Mg Tablet PO 4 mg BID@0900,2100 LEANDRA Administration Labetalol HCl 300 mg/ Sodium 300 mls @ 0 mls/hr 06/08/22 18:45 06/09/22 09:28 Chloride IV 0 mg/min .Q0M LEANDRA 0 mls/hr Titration Protocol Per Protocol Sodium Chloride 1,000 mls @ 150 mls/hr 06/08/22 19:00 06/09/22 16:28 Sodium Chloride 0.9% IV Not Given .Q6H40M LEANDRA Lorazepam 0.5 mg 06/09/22 03:20 06/09/22 13:53 Lorazepam 0.5 Mg Tablet PO 0.5 mg Q4H PRN Administration ANXIETY Morphine Sulfate 4 mg 06/08/22 18:48 06/09/22 14:41 Morphine 2 Mg/Ml Syr 1 Ml IVP 4 mg Q2H PRN Administration SEVERE PAIN Morphine Sulfate 30 mg 06/09/22 09:30 06/09/22 09:40 Morphine Er (12 Hr) 30 Mg Tablet PO 30 mg Q12H LEANDRA Administration Non-Formulary 25 each 06/09/22 09:15 06/09/22 09:40 Medication (Briviact PO 25 each 25mg) DAILY LEANDRA Administration Ondansetron HCl 4 mg 06/08/22 18:49 06/09/22 00:45 Ondansetron 2 Mg/Ml Sdv 2 Ml IVP 4 mg Q6H PRN Administration NAUSEA AND VOMITING Pantoprazole Sodium 40 mg 06/09/22 09:20 06/09/22 09:[address] 40 Mg Tablet PO 40 mg DAILY LEANDRA Administration Zolpidem Tartrate 5 mg 06/08/22 21:00 06/08/22 20:32 Zolpidem 5 Mg Tablet PO 5 mg BEDTIME LEANDRA Administration PFSH Acute PFSH: Medical History Adrenal mass CHF (congestive heart failure) Chronic pain of lower extremity, bilateral Chronic pancreatitis 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 Primary osteoarthritis Recurrent vomiting Therapeutic opioid induced constipation Surgical History History of bilateral knee replacement History of cholecystectomy History of D&C 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 Family History Grandmother Cancer Lung disease Stroke Mother Lung disease Other A-fib CHF (congestive heart failure) Social History Smoking and tobacco status: never smoked Alcohol intake: never Household members: spouse Housing: House Marital status: Current occupational status: disabled History of recent travel: No Female Reproductive History: Date of last menstrual period: 11/02/21 Vitals/I&O/Wt Last Vital Signs Temp 98.0 F 06/09/22 08:00 Pulse 80 06/09/22 16:15 Resp 21 H 06/09/22 16:15 BP 94/50 06/09/22 16:15 Pulse Ox 92 06/09/22 16:15 O2 Del Method 06/09/22 10:48 06/09/22 06/09/22 06/09/22 06:59 14:59 22:59 Intake Total 999 382.5 / 382.5 Output Total 200 / 700 350 / 350 Balance 800 / 1300 32.5 / 32.5 Weight last 48 hrs Weight 194 lb Weight 194 lb Physical Exam Narrative: General: Patient is awake alert and oriented, in no distress. Neck: No JVD Respiratory: Auscultation: Bilateral clear to auscultation both anterior and posteriorly, no crackles wheezing or rhonchi Cardiovascular: Regular rate and rhythm, S1-S2 present, no murmur, no peripheral edema. Abdomen: Soft, nontender, distended from obesity, positive bowel sound Musculoskeletal: No obvious joint deformity Skin: No rash Neuro: Mental status is normal, no gross cranial nerve deficit, gross normal motor function Data : 06/09/22 04:18 06/09/22 04:18 Other data: I have reviewed the patient's laboratory microbiologic and radiologic data on this admission and before. A&P Assessment and plan (1) Labile hypertension: The patient is hospitalized for labile hypertension. The patient was in hypertensive urgency yesterday however her blood pressure dropped today. I believe that the patient's medications are not optimized at this point. We have been treating this patient thinking that she has pheochromocytoma [facility] based on the log sorter note from [facility], the suspicion for pheochromocytoma is very slim. In addition, I had reviewed her serum metanephrine levels from [place] which was also negative. The patient has been receiving alpha blockade with concerns for pheochromocytoma however I believe that this is negatively affecting her cardiovascular physiology. The patient has hypertrophic obstructive cardiomyopathy with basilar asymmetric septal thickening. Additionally, the patient has aortic stenosis with bicuspid aortic valve and moderate eccentric aortic regurgitation which is directed tow ards the mitral valve. I believe anytime the patient is excessively vasodilated, In the setting of HOCM and aortic regurgitation the cardiac output is diminishing significantly. Additionally, the regurgitant jet from aortic regurgitation may also be affecting diastolic filling of the left ventricle. Given the low suspicion for pheochromocytoma, at this time, I would recommend starting her on 5 mg of amlodipine with holding parameters and add half the home dose of her carvedilol. If her blood pressure continues to be persistently high, we can adjust the medication. The patient likely develops lower extremity edema because of her cardiac physiology, if necessary, she can get oral Lasix as needed. Status: Acute (2) HOCM (hypertrophic obstructive cardiomyopathy): The patient needs to follow-up with cardiology. She likely needs a cardiac MRI. Status: Acute (3) Aortic regurgitation: Status: Acute (4) Bicuspid aortic valve: Status: Acute (5) Adrenal nodule: The patient has a 2.4 cm left adrenal nodule. This is not an adrenal mass. I believe the patient can follow-up with endocrinology as outpatient. However, in the meantime since she is in the hospital were going to obtain records from [facility] as the patient and her is under the impression that she has pheochromocytoma. Depending on the medical record, it appears that her risk of having pheochromocytoma has been considered very low in the past. Status: Acute Coding Level of Care Code Acute Certified Registered Dental Assistant for [facility] Fwd Diagnoses Labile hypertension R09.89 HOCM (hypertrophic obstructive cardiomyopathy) I42.1 Aortic regurgitation I35.1 Bicuspid aortic valve Q23.1 Adrenal nodule E27.8
[2022-06-09] MEDS: carvedilol 6.25 mg Tablet PO (17:51)
[2022-06-09] MEDS: lipase-protease-amylase Capsule 1 EACH PO (18:30)
[2022-06-09] MEDS: zolpidem 5 mg Tablet PO (20:19)
[2022-06-10] VITALS (83 sets, daily range): BP systolic 75–217; BP diastolic 46–121; PULSE 75–122; RESP 10–26; TEMP 36.8–36.9; O2SAT 87–100; BMI 5671.8
[2022-06-10] MEDS: morphine 4 mg/mL SDV 1 mL IVP ×3 (01:05→08:50)
[2022-06-10] MEDS: LORazepam 0.5 mg Tablet PO ×4 (01:30→18:58)
[2022-06-10] MEDS: sodium chloride 0.9% 1,000 ML 150 ML IV (01:58)
[2022-06-10 04:45] LABS: Basophils # 0.1 10^3/uL (0.0-0.1); Basophils % 0.6 %; Eosinophils # 0.1 10^3/uL (0.0-0.8); Eosinophils % 0.8 %; Hematocrit 33.7 % (37.0-47.0); Hemoglobin 10.7 g/dL (11.5-15.3); Lymphocytes # 3.9 10^3/uL (0.8-4.8); Lymphocytes % 30.9 %; Mean Corpuscular HGB Conc 31.8 g/dL (30.0-36.0); Mean Corpuscular Hemoglobin 28.5 pg (28.0-34.0); Mean Corpuscular Volume 89.6 fl (81-99); Mean Platelet Volume 11.7 fL (7.4-10.4); Monocytes # 0.8 10^3/uL (0.2-0.9); Monocytes % 6.6 %; Neutrophils # 7.54 10^3/uL (1.8-7.7); Nucleated Red Blood Cells % 0 %; Platelet Count 206 10^3/cmm (130-400); Red Blood Count 3.76 10^6/uL (4.1-5.3); Red Cell Distribution Width 13.6 % (12.1-15.1); White Blood Count 12.6 10^3/uL (4.0-10.0)
[2022-06-10 05:09] LABS: Anion Gap 10.3 (5-19); Blood Urea Nitrogen 5 mg/dL (6-20); Calcium 7.8 mg/dL (8.5-10.5); Carbon Dioxide 25 mmol/L (22-29); Chloride 109 mmol/L (98-107); Glomerular Filtration Rate 109.6 mL/min (90-130); Glucose 176 mg/dL (65-115); Osmolality Calculated 292 mOsm/kg (285-295); Potassium 4.3 mmol/L (3.5-5.1); Sodium 140 mmol/L (136-145)
[2022-06-10] MEDS: ondansetron 2 mg/ML SDV 2 mL 4 MG IVP ×2 (05:41→15:48)
[2022-06-10] MEDS: lipase-protease-amylase Capsule 1 EACH PO ×2 (07:31→11:50)
[2022-06-10] MEDS: hyDRALAzine 20 mg/mL INJ 1 mL 10 MG IVP ×2 (07:37→15:54)
[2022-06-10] MEDS: carvedilol 6.25 mg Tablet PO (08:31)
[2022-06-10] MEDS: morphine ER (12 HR) 30 mg tablet PO ×2 (08:31→20:49)
[2022-06-10] MEDS: pantoprazole DR 40 mg Tablet PO (08:31)
[2022-06-10] MEDS: amlodipine 5 mg Tablet 2.5 MG PO (08:32)
[2022-06-10] MEDS: carvedilol 25 mg Tablet PO (09:45)
--- NOTE | 2022-06-10 09:51 | PM.PN ---
Subjective Subjective: In the last 24 hours we noted that the patient's labile hypertension dropped severely with Cardura and this excess response not consistent with pheochromocytoma. Additionally I spoke with Dr. Castillo, Dr. Espitia and Dr. Dejesus about the patient's history and we reviewed the chart. Patient is unlikely to have pheochromocytoma. She did have 1 serum metanephrine positive but the urine metanephrine studies were negative she also had HOCM and has had multiple admissions with labile blood pressure response to treatment directed if you chromocytoma. Patient had a consultation in [place] at and we are trying to get those results. Overnight the [place] has worn off and now she is hypertensive again. We are titrating up amlodipine and Coreg. Of note renal function is good and potassium normal Vitals/I&O/Wt Last Vital Signs Temp 98.3 F 06/10/22 00:00 Pulse 111 H 06/10/22 08:30 Resp 17 06/10/22 08:50 BP 207/99 06/10/22 08:30 Pulse Ox 95 06/10/22 08:50 O2 Del Method 06/10/22 07:48 O2 Flow Rate 2 06/10/22 07:48 06/09/22 06/10/22 06/10/22 22:59 06:59 14:59 Intake Total 2992.5 / 3375.0 1118 / 4493.0 300 / 300 Output Total 700 / 1050 1000 / 2050 Balance 2292.5 / 2325.0 118 / 2443.0 300 / 300 Weight last 48 hrs Weight 91.49 kg Weight 87.997 kg Weight 87.997 kg Physical Exam Narrative: General well-developed well-nourished overweight female in no acute cardiopulmonary stress but she is anxious and states she believes our report that she does not have pheochromocytoma wants to move on and just feel better CV regular rhythm Lungs clear to auscultation bilateral Abdomen positive bowel sounds soft nontender Calves no edema Skin warm and dry Data : 06/10/22 04:18 06/10/22 04:18 A&P Assessment and plan (1) Hypertensive urgency: at bedside Will lower blood pressure to goal over the next 24-48 using medications to decrease contractility and heart rate as opposed to vasodilator Additionally avoid alpha blockade given her HOCM I think she would be a candidate for ARB as well Status: Acute (2) HOCM (hypertrophic obstructive cardiomyopathy): She has been told by her major account manager that she needs her adrenal mass removed so that her hormonal blood pressure problem can be stabilized. She tells me she has a bicuspid aortic valve in addition to HOCM See above we will consult cardiology Would be good for her to follow-up with a local physician versed with hokum and hypertension. In the past she was scheduled to see Dr. Brito but did not follow-up Status: Acute (3) Adrenal mass: Obtain lab records. Spot urine tests were not particularly elevated that I have available on old record Record from endocrinology is being requested. I do not think this adrenal mass is a pheochromocytoma Status: Acute Attestations Medical Necessity Statement*: Patient remained in the ICU for medication adjustment and as blood pressure comes down likely will transfer her upstairs to [facility] with telemetry Time Spent in Patient Care: 35 minutes spent in evaluation coronation care for this patient today Coding Level of Care Code Acute Coastal/Harbor Defense Officer for [facility] Fwd Medical Decision Making High Complexity Diagnoses Hypertensive urgency I16.0 HOCM (hypertrophic obstructive cardiomyopathy) I42.1 Adrenal mass E27.8
--- NOTE | 2022-06-10 10:35 | PC.CHAP ---
Pastoral Care Encounter/Spiritual Assessment Type of Contact [] Declined supervisor winding department visit [] Patient/Family/Request visit [] Outpatient visit [] Follow-up visit [] Physician referral [] Code/Alert [x] Routine visit [] Staff referral [] Actively dying [] Patient sleeping [x] Family support [] [] Out of room [] Palliative care [] [] Receiving care in room [] Pre-surgical visit [] Trauma [] Long length of stay [x] ICU visit [] Other: Relational/Emotional Strength [] Patient feels connected with others/family/visitors/staff [] Distress [] Loneliness/isolation [] Abandonment Spirituality of Patient [] Person of [place] [] Attends Catholic of their [place] [] Believes in Prayer [] Reads Bible or Church materials [] There are Spiritual issues to be addressed System Validation Engineer Interventions []x Prayer [] Active listening [] Non-anxious presence [] Spiritual/emotional support [] Crisis/trauma care [] Spiritual counseling [] Bereavement support [] Provided bereavement packet [] Provided Bible/devotional materials [] Provided toy/stuffed animal, coloring book to patient or family member [] Provided Communion [] Anointing/[place] [] Salvation [x] Completed spiritual assessment [] Other: Impact on Illness or Injury [] Angry [] Fearful [] Anxious [] Often cries [] Exhaustion [] Unable to work [] Unable to attend adventism [] Unable to walk/stand [] Unable to read [] Unable to drive [] Unable to eat/drink [] Unable to sleep [] Unable to be with family [] Patient intubated [] Other: Summary Time spent with patient
[2022-06-10] MEDS: cyclobenzaprine 10 mg Tablet PO (14:45)
--- NOTE | 2022-06-10 15:33 | PC.NURSE ---
patient c/o of generalized pain approximately 1330, Dr. Kaur gave order for home dose of Flexeril. Approximately 1445 c/o generalized pain, crying, unable to rate. Dr. Kaur gave order for 5 mg Oxycodone PO q4 hours pain. possible allergy flagged due to Tramadol allergy order, patient and patient has taken oxycodone in passed with no issues
[2022-06-10] MEDS: oxyCODONE 5 mg IR Tab/Cap PO ×2 (15:45→19:47)
[2022-06-10] MEDS: nystatin powder 15 gm Btl 1 APPLIC TOPICAL (16:52)
[2022-06-10] MEDS: carvedilol 12.5 mg Tablet PO (20:49)
[2022-06-10] MEDS: zolpidem 5 mg Tablet PO (20:49)
[2022-06-11] VITALS (70 sets, daily range): BP systolic 107–257; BP diastolic 58–206; PULSE 80–118; RESP 12–23; TEMP 37; O2SAT 89–98
[2022-06-11] MEDS: oxyCODONE 5 mg IR Tab/Cap PO ×6 (00:31→20:15)
[2022-06-11] MEDS: LORazepam 0.5 mg Tablet PO ×4 (00:33→20:15)
[2022-06-11] MEDS: cyclobenzaprine 10 mg Tablet PO ×2 (04:41→10:02)
[2022-06-11] MEDS: hyDRALAzine 20 mg/mL INJ 1 mL 10 MG IVP ×2 (05:53→11:23)
[2022-06-11 06:19] LABS: Basophils # 0.1 10^3/uL (0.0-0.1); Basophils % 0.9 %; Eosinophils # 0.3 10^3/uL (0.0-0.8); Eosinophils % 2.5 %; Hemoglobin 12.9 g/dL (11.5-15.3); Lymphocytes # 3.2 10^3/uL (0.8-4.8); Lymphocytes % 28.1 %; Mean Corpuscular HGB Conc 33.1 g/dL (30.0-36.0); Mean Corpuscular Hemoglobin 29.1 pg (28.0-34.0); Mean Corpuscular Volume 87.8 fl (81-99); Mean Platelet Volume 11.6 fL (7.4-10.4); Monocytes # 1.1 10^3/uL (0.2-0.9); Monocytes % 9.3 %; Neutrophils # 6.58 10^3/uL (1.8-7.7); Neutrophils % 57.9 %; Nucleated Red Blood Cells % 0 %; Platelet Count 190 10^3/cmm (130-400); Red Blood Count 4.44 10^6/uL (4.1-5.3); Red Cell Distribution Width 13.7 % (12.1-15.1); White Blood Count 11.4 10^3/uL (4.0-10.0)
[2022-06-11 07:13] LABS: Anion Gap 13.9 (5-19); Blood Urea Nitrogen 5 mg/dL (6-20); Calcium 8.9 mg/dL (8.5-10.5); Carbon Dioxide 26 mmol/L (22-29); Chloride 102 mmol/L (98-107); Creatinine Clr Calc Pharmacy 151.2126; Glomerular Filtration Rate 91.8 mL/min (90-130); Glucose 162 mg/dL (65-115); Osmolality Calculated 287 mOsm/kg (285-295); Potassium 3.9 mmol/L (3.5-5.1); Sodium 138 mmol/L (136-145)
[2022-06-11] MEDS: lipase-protease-amylase Capsule 1 EACH PO ×3 (08:24→18:05)
[2022-06-11] MEDS: amlodipine 5 mg Tablet PO (08:24)
[2022-06-11] MEDS: pantoprazole DR 40 mg Tablet PO (08:24)
[2022-06-11] MEDS: carvedilol 12.5 mg Tablet PO (08:24)
[2022-06-11] MEDS: morphine ER (12 HR) 30 mg tablet PO ×2 (10:02→21:34)
--- NOTE | 2022-06-11 11:13 | PM.PN ---
Subjective Subjective: 42-year-old female with hypertrophic obstructive cardiomyopathy and very labile blood pressure. We stopped the Cardura off of bimal and blood pressure has been high since then. We are treating with medications trying to at avoid peripheral vasodilation Medications: Reviewed: Yes Vitals/I&O/Wt Last Vital Signs Temp 98.5 F 06/10/22 20:00 Pulse 98 06/11/22 10:30 Resp 13 06/11/22 10:30 BP 176/94 06/11/22 10:30 Pulse Ox 95 06/11/22 10:30 O2 Del Method 06/11/22 07:38 O2 Flow Rate 2 06/10/22 20:00 06/10/22 06/11/22 06/11/22 22:59 06:59 14:59 Intake Total 1450 / 2000 150 / 2150 300 / 300 Output Total 1500 / 1500 Balance -50 / 500 150 / 650 300 / 300 Weight last 48 hrs Weight 91.49 kg Physical Exam Narrative: General well-developed well-nourished female states she does not feel well with some headache CV regular rate and rhythm lungs clear to auscultation bilateral Calves no edema Skin warm and dry Mentation alert oriented pleasant Data : 06/11/22 06:00 06/11/22 06:36 A&P Assessment and plan (1) Hypertensive urgency: at bedside Will lower blood pressure to goal over the next 24-48 using medications to decrease contractility and heart rate as opposed to vasodilator Additionally avoid alpha blockade given her HOCM I think she would be a candidate for ARB as well Increase carvedilol to 25 mg twice a day add losartan 25 mg daily first dose is now Status: Acute (2) HOCM (hypertrophic obstructive cardiomyopathy): She has been told by her orientation & mobility specialist that she needs her adrenal mass removed so that her hormonal blood pressure problem can be stabilized. She tells me she has a bicuspid aortic valve in addition to HOCM See above we will consult cardiology Would be good for her to follow-up with a local physician versed with hokum and hypertension. In the past she was scheduled to see Dr. Brito but did not follow-up Patient says she wants to continue with Dr. Valladares. I will call him and let him know that thus far work-up for pheochromocytoma is negative and working diagnosis is labile hypertension and HOCM Status: Acute (3) Adrenal mass: Obtain lab records. Spot urine tests were not particularly elevated that I have available on old record Record from endocrinology is being requested. I do not think this adrenal mass is a pheochromocytoma Status: Acute Attestations Medical Necessity Statement*: Patient remains in the hospital for adjustment of blood pressure medication. Anticipate 2 more days in the hospital Time Spent in Patient Care: 30 minutes spent evaluation and coordination of care for this patient today Coding Level of Care Code Acute Manager Crisis for [facility] Fwd History Detailed Exam Detailed Medical Decision Making High Complexity Diagnoses Hypertensive urgency I16.0 HOCM (hypertrophic obstructive cardiomyopathy) I42.1 Adrenal mass E27.8
[2022-06-11] MEDS: losartan 50 mg Tablet 25 MG PO (11:23)
--- NOTE | 2022-06-11 11:47 | PC.CHAP ---
Pastoral Care Encounter/Spiritual Assessment Type of Contact [] Declined slot floor person visit [] Patient/Family/Request visit [] Outpatient visit [] Follow-up visit [] Physician referral [] Code/Alert [x] Routine visit [] Staff referral [] Actively dying [] Patient sleeping [x] Family support [] [] Out of room [] Palliative care [] [] Receiving care in room [] Pre-surgical visit [] Trauma [] Long length of stay [x] ICU visit [] Other: Relational/Emotional Strength [] Patient feels connected with others/family/visitors/staff [] Distress [] Loneliness/isolation [] Abandonment Spirituality of Patient [] Person of [place] [] Attends Holiness of their [place] [] Believes in Prayer [] Reads Bible or Quaker materials [] There are Spiritual issues to be addressed Concrete Pump Operator Interventions [x] Prayer [] Active listening [] Non-anxious presence [] Spiritual/emotional support [] Crisis/trauma care [] Spiritual counseling [] Bereavement support [] Provided bereavement packet [] Provided Bible/devotional materials [] Provided toy/stuffed animal, coloring book to patient or family member [] Provided Communion [] Anointing/[place] [] Salvation [x] Completed spiritual assessment [] Other: Impact on Illness or Injury [] Angry [] Fearful [] Anxious [] Often cries [] Exhaustion [] Unable to work [] Unable to attend mandaeism [] Unable to walk/stand [] Unable to read [] Unable to drive [] Unable to eat/drink [] Unable to sleep [] Unable to be with family [] Patient intubated [] Other: Summary Time spent with patient
--- NOTE | 2022-06-11 13:16 | PC.NURSE ---
Patient remains HTN despite all prn meds being administered per dec. notified and is to put in orders
[2022-06-11] MEDS: enalaprilat 1.25 mg/mL Inj IVP (14:02)
[2022-06-11] MEDS: ondansetron 2 mg/ML SDV 2 mL 4 MG IVP (14:18)
--- NOTE | 2022-06-11 14:20 | PC.NURSE ---
PRN Enalaprilt administered per order from Dr. Kaur. senior living through administration patient's tounge started sweling and this nurse noticed L pupil larger than left. Dr. Kaur was on unit and came to bedside gave v.o. for 50 mg benedryl IVP now, HCP observed unequal pupils. dope house operator helper strength equal at this time
--- NOTE | 2022-06-11 14:27 | ECG_ITS ---
[facility] Test Date: 2022-06-11 Pat Name: Eleanor Ragland Department: Room: [facility] Gender: Female Tenant Coordinator: : 1980 Requested By: Brian Spivey Order Number: [id number] Dianna MD: Rahul Zambrano M.D. Measurements Intervals [place] Rate: 109 P: 6 ID: [id number] QRS: -15 QRSD: 97 T: 163 QT: 330 QTc: 444 Interpretive Statements SINUS TACHYCARDIA WITH SHORT ID INTERVAL LEFT VENTRICULAR HYPERTROPHY AND ST-T CHANGE [VOLTAGE CRITERIA PLUS ST/T ABNORMALITY] INFERIOR MYOCARDIAL INFARCTION , PROBABLY OLD [40+ ms Q WAVE AND/OR ST/T ABNORMALITY IN II/aVF] Compared to ECG 06/08/2022 13:55:45 Short ID interval now present ST (T wave) deviation still present Myocardial infarct finding still present Electronically Signed On 06-11-2022 14:31:47 CDT by Rahul Zambrano M.D. [id number]
--- NOTE | 2022-06-11 14:28 | CT_ITS ---
WS: [id number] CT HEAD NONCONTRAST HISTORY: unequal pupils and headache TECHNIQUE: Contiguous axial imaging performed through the brain in 2.5 mm imaging. Bone and soft tiss ue windows. Sagittal and coronal reformats reviewed. All CT scans at [facility] use at least one of these dose optimization techniques: automated exposure control; mA and/or kV adjustment per pa tient size (includes targeted exams where dose is matched to clinical indication); or iterative recon struction. DLP: 1071.68 mGy.cm COMPARISON: 06/08/2022 No acute intracranial hemorrhage, midline shift or mass effect. No atrophy or prior infarcts or herniation. Ventricles: Normal size with no hydrocephalus. No inferior displacement of the cerebellar tonsils. Paranasal sinuses: As visualized are clear. Mastoid air cells: Well pneumatized. Calvarium and scalp: Skull is intact with no soft tissue edema or swelling. CT/CT head wo con* [id number] IMPRESSION: 1. Stable noncontrast head CT. 2. No acute edema or midline shift. No hemorrhage.
--- NOTE | 2022-06-11 14:55 | PC.NURSE ---
Patient taken to CT per order from Dr. Kaur
[2022-06-11] MEDS: diphenhydrAMINE 50 mg/mL SDV 1mL IVP (16:04)
[2022-06-11] MEDS: nystatin powder 15 gm Btl 1 APPLIC TOPICAL (16:04)
--- NOTE | 2022-06-11 17:06 | PC.NURSE ---
BP 209/140, this nurse notified Dr. Kaur, HCP to consult cardiology
[2022-06-11] MEDS: carvedilol 25 mg Tablet PO (17:54)
[2022-06-11] MEDS: cloNIDine 0.1 mg Tablet PO (17:55)
--- NOTE | 2022-06-11 18:09 | PC.NURSE ---
Patient and family requested to be sent to [facility] Dr. Kaur notified. This nurse gave info to transfer service at [facility], this nurse was advised to not expect a bed until tomorrow
[2022-06-11] MEDS: esmolol drip 2,500 MG/250 ML PREMIX 27.45 MG IV (18:18)
[2022-06-11] MEDS: zolpidem 5 mg Tablet PO (21:34)
--- NOTE | 2022-06-11 21:44 | PC.NURSE ---
[id number] 06/11/2022 AMPARO Andres report called
[2022-06-12] VITALS (27 sets, daily range): BP systolic 125–188; BP diastolic 60–111; PULSE 86–109; RESP 10–21; O2SAT 90–99
[2022-06-12] MEDS: oxyCODONE 5 mg IR Tab/Cap PO ×2 (00:09→04:09)
[2022-06-12] MEDS: cyclobenzaprine 10 mg Tablet PO ×2 (00:10→07:23)
[2022-06-12] MEDS: esmolol drip 2,500 MG/250 ML PREMIX 41.17 MG IV (01:58)
[2022-06-12] MEDS: LORazepam 0.5 mg Tablet PO ×2 (01:58→07:23)
--- NOTE | 2022-06-12 06:51 | PC.NURSE ---
Report called to Ibeth Murillo LPN at [place], [place] on 6A for [phone].
[2022-06-12] MEDS: hyDRALAzine 20 mg/mL INJ 1 mL 10 MG IVP (07:19)
--- NOTE | 2022-06-12 07:27 | PC.NURSE ---
EMS arrived to transport patient to another facility. Patient alert and orientated.
--- NOTE | 2022-06-12 08:46 | PC.NURSE ---
Patient left via EMS to transfer to [facility] at 0730
--- NOTE | 2022-07-07 11:35 | PM.DCS ---
Discharge Providers Date of Admission: 06/08/22 18:41 Date of Discharge: June 12, 2022 Attending Provider at Admission: Brian Kaur MD Attending Provider at Discharge: Brian Kaur MD Consults: [facility] Primary Care Provider: Yony Otero MD Diagnoses at Discharge Discharge Diagnosis (1) Hypertensive urgency: Details from hospital stay: improved but still labile Status: Acute (2) HOCM (hypertrophic obstructive cardiomyopathy): Details from hospital stay: transferred to her neurophysiological technician care Status: Acute (3) Adrenal mass: Details from hospital stay: unchanged Status: Acute Reason for Visit Reason for Visit: n/v, High BP Hospital Course Hospital Course Pt admitted with labile hypertension and not able to keep her meds down at home. Told by Dr. Valladares she had pheochromocytgoma. The pt was treated with alpha bimal but felt terrible and blood pressure dropped to low. Review of endocrinology notes showed she had not had positive pheochromocytoma labs. one was suspcious but all other confirmatory tests negative. Pt was treated with betblocker, criss and ARB. She requessted transfer to [place] to care of Dr. Valladares. I called the hospitalist and transfer was accepted. Physical Exam Narrative: General well-developed well-nourished female states she does not feel well with some headache CV regular rate and rhythm lungs clear to auscultation bilateral Calves no edema Skin warm and dry Mentation alert oriented pleasant Discharge Data Studies Completed and Pending Completed Studies During Hospitalization Category Date Time Status CT head wo con* [id number] Stat Cat Scan 06/08/22 11:[address] head wo con* [id number] Urgent Cat Scan 06/11/22 14:28 Completed Radiology Impressions Head CT 06/11/22 14:28 IMPRESSION: 1. Stable noncontrast head CT. 2. No acute edema or midline shift. No hemorrhage. Laboratory Results WBC 11.4 10^3/uL (4.0-10.0) H 06/11/22 06:00 RBC 4.44 10^6/uL (4.1-5.3) 06/11/22 06:00 Hgb 12.9 g/dL (11.5-15.3) 06/11/22 06:00 Hct 39.0 % (37.0-47.0) 06/11/22 06:00 MCV 87.8 fl (81-99) 06/11/22 06:00 MCH 29.1 pg (28.0-34.0) 06/11/22 06:00 MCHC 33.1 g/dL (30.0-36.0) 06/11/22 06:00 RDW 13.7 % (12.1-15.1) 06/11/22 06:00 Plt Count 190 10^3/cmm (130-400) 06/11/22 06:00 MPV 11.6 fL (7.4-10.4) H 06/11/22 06:00 Neut % (Auto) 57.9 % 06/11/22 06:00 Lymph % (Auto) 28.1 % 06/11/22 06:00 Edmunds % (Auto) 9.3 % 06/11/22 06:00 Eos % (Auto) 2.5 % 06/11/22 06:00 Baso % (Auto) 0.9 % 06/11/22 06:00 Neut # (Auto) 6.58 10^3/uL (1.8-7.7) 06/11/22 06:00 Lymph # (Auto) 3.2 10^3/uL (0.8-4.8) 06/11/22 06:00 Edmunds # (Auto) 1.1 10^3/uL (0.2-0.9) H 06/11/22 06:00 Eos # (Auto) 0.3 10^3/uL (0.0-0.8) 06/11/22 06:00 Baso # (Auto) 0.1 10^3/uL (0.0-0.1) 06/11/22 06:00 Nucleated RBC % (auto) 0 % 06/11/22 06:00 Nucleated RBCs # 0.0 /100WBC 06/11/22 06:00 Sodium 138 mmol/L (136-145) 06/11/22 06:36 Potassium 3.9 mmol/L (3.5-5.1) 06/11/22 06:36 Chloride 102 mmol/L (98-107) 06/11/22 06:36 Carbon Dioxide 26 mmol/L (22-29) 06/11/22 06:36 Anion Gap 13.9 (5-19) 06/11/22 06:36 BUN 5 mg/dL (6-20) L 06/11/22 06:36 Creatinine 0.7 mg/dL (0.5-0.9) 06/11/22 06:36 GFR Calculation 91.8 mL/min (90-130) 06/11/22 06:36 Glucose 162 mg/dL (65-115) H 06/11/22 06:36 Calculated Osmolality 287 mOsm/kg (285-295) 06/11/22 06:36 Calcium 8.9 mg/dL (8.5-10.5) 06/11/22 06:36 Total Bilirubin 0.4 mg/dL (0.15-1.2) 06/09/22 04:18 AST 31 U/L (0-32) 06/09/22 04:18 ALT 28 U/L (0-33) 06/09/22 04:18 Alkaline Phosphatase 98 U/L (35-105) 06/09/22 04:18 Troponin T Baseline 7 ng/L (0-10) 06/08/22 13:25 Troponin T 120 Minute 6.62 ng/L (0-10) 06/08/22 15:12 Delta Troponin T -0.38 ABS# (0-10) L 06/08/22 15:12 Total Protein 6.4 g/dL (6.6-8.7) L 06/09/22 04:18 Albumin 3.5 g/dL (3.5-5.2) 06/09/22 04:18 Globulin 2.9 g/dL (1.3-4.6) 06/09/22 04:18 Vitals Last Vital Signs Temp 98.6 F 06/11/22 21:30 Pulse 87 06/12/22 06:15 Resp 12 06/12/22 06:15 BP 152/97 06/12/22 06:15 Pulse Ox 99 06/12/22 06:15 O2 Del Method 06/11/22 20:00 O2 Flow Rate 2 06/10/22 20:00 Discharge Plan Discharge Patient Disposition: Xfer Short-Term Hosp Condition: Stable Prescriptions: No Action (DME) wheelchair See Rx Instructions .Route .MEDSUPPLY Qty: 1 0RF Rx Instructions: patient needs replacement chair. (DME) STANDARD WHEELCHAIR See Rx Instructions .Route .MEDSUPPLY Qty: 1 0RF Rx Instructions: As directed furosemide 20 mg tablet 20 mg PO DAILY PRN (Reason: edema) Qty: 30 0RF tobramycin-dexamethasone [TobraDex] 0.3-0.1 % drops,suspension 2 drp ophthalmic (eye) QID 5 Days Qty: 2.5 0RF (DME) wheelchair See Rx Instructions .Route .MEDSUPPLY Qty: 1 0RF Rx Instructions: As directed Zenpep 40,000-126,000- 168,000 unit capsule,delayed release(DR/EC) 1 cap PO TID Qty: 90 8RF Rx Instructions: administer with meals and/or snacks ondansetron HCl 4 mg tablet 4 mg PO Q8H PRN (Reason: nausea and vomiting) Qty: 20 2RF zolpidem 5 mg tablet 5 mg PO BEDTIME PRN (Reason: Sleep) Qty: 30 3RF Briviact 25 mg tablet 25 mg PO DAILY@08 Qty: 60 0RF tizanidine 4 mg tablet 8 mg PO TID PRN (Reason: muscle spasticity) 30 Days Qty: 180 3RF pantoprazole 40 mg tablet,delayed release (DR/EC) 40 mg PO BID@08,20 Qty: 90 3RF morphine 30 mg tablet extended release 30 mg PO Q12H 30 Days Qty: 60 0RF Rx Instructions: at 0800/2000 diphenhydramine HCl [Benadryl] 25 mg Capsule 25 mg PO Q6H PRN (Reason: Allergy Symptoms) polyethylene glycol 3350 [Miralax] 17 gram/dose Powder 17 g PO QAM PRN (Reason: Constipation) lorazepam [Ativan] 0.5 mg tablet 0.5 mg PO DAILY PRN (Reason: agitation) Qty: 7 0RF carvedilol 12.5 mg tablet 12.5 mg PO BID prochlorperazine maleate 10 mg tablet 10 mg PO Q8H PRN (Reason: Nausea And Vomiting) hydralazine 10 mg tablet 10 mg PO Q8H PRN (Reason: Blood Pressure) Discharge Orders: Transfer Out of Facility (Order); Ordered 07/07/22 Ordered By: Brian Kaur Referrals: Yony Otero MD [Primary Care Provider] - Discharge Attestations Time Spent in Discharge Care*: greater than 30 min Status at Discharge: Cognitive status at discharge: cognitively intact, Behavioral status at discharge: cooperative, Quality Metrics Clinical Quality Measures [ No reported AMI, CVA or VTE this stay] Coding Level of Care Code Acute Chg FW DC note Diagnoses Hypertensive urgency I16.0 HOCM (hypertrophic obstructive cardiomyopathy) I42.1 Adrenal mass E27.8
== END 2022-06-12 07:30 | disposition short-term general hospital (02) ==
LOC: ER 16:42 → ICU 21:07
PROVIDERS: Admitting Provider Internal Medicine; Emergency Provider Emergency Medicine; PCP Internal Medicine; Visit Provider Internal Medicine
DX: I16.0 Hypertensive urgency (principal); I42.1 Obstructive hypertrophic cardiomyopathy; E27.8 Other specified disorders of adrenal gland; Q23.1 Congenital insufficiency of aortic valve; I11.0 Hypertensive heart disease with heart failure; I50.9 Heart failure, unspecified; E11.9 Type 2 diabetes mellitus without complications; Z79.1 Long term (current) use of non-steroidal anti-inflammatories (NSAID); Z88.5 Allergy status to narcotic agent
CPT/HCPCS: 36415; 70450; 80048; 80053; 84484; 85025; 93005; 94760; 96374; 96375; 99285; G0378; J0360; J1200; J2270; J2405; J2765; J3490; J7030; J7050

== ENCOUNTER 2022-08-20 20:33 | Inpatient (IN) | payer MEDICARE, MEDICAID, SELFPAY ==
[2022-08-20 20:47] VITALS: BP 202/99; PULSE 118; RESP 22; TEMP 37.9; O2SAT 95; BMI 38.0
[2022-08-20 22:08] VITALS: BP 187/101; PULSE 107; RESP 22; TEMP 37.3; O2SAT 96
[2022-08-20 22:35] VITALS: BP 225/116; PULSE 108; RESP 14; O2SAT 95
[2022-08-20 23:01] LABS: Basophils # 0.1 10^3/uL (0.0-0.1); Basophils % 0.6 %; Eosinophils % 0.2 %; Hematocrit 51.9 % (37.0-47.0); Hemoglobin 16.5 g/dL (11.5-15.3); Lymphocytes # 4.4 10^3/uL (0.8-4.8); Lymphocytes % 25.3 %; Mean Corpuscular HGB Conc 31.8 g/dL (30.0-36.0); Mean Corpuscular Hemoglobin 27.8 pg (28.0-34.0); Mean Corpuscular Volume 87.4 fl (81-99); Mean Platelet Volume 11.2 fL (7.4-10.4); Monocytes % 5.8 %; Neutrophils # 11.81 10^3/uL (1.8-7.7); Neutrophils % 67.5 %; Nucleated Red Blood Cells % 0 %; Platelet Count 341 10^3/cmm (130-400); Red Blood Count 5.94 10^6/uL (4.1-5.3); Red Cell Distribution Width 13.9 % (12.1-15.1); White Blood Count 17.5 10^3/uL (4.0-10.0)
[2022-08-20 23:02] VITALS: BP 184/126; PULSE 100; RESP 19; O2SAT 95
--- NOTE | 2022-08-20 23:14 | CTR_ITS ---
PROCEDURE INFORMATION: Exam: CT Abdomen And Pelvis Without Contrast Exam date and time: 08/21/2022 1:07 AM Age: 42 years old Clinical indication: Abdominal pain; Localized; Left upper quadrant (luq); Prior surgery; Surgery date: 6+ months; Surgery type: Cholecystectomy; Additional info: Luq pain HX pancreatitis TECHNIQUE: Imaging protocol: Computed tomography of the abdomen and pelvis without contrast. Radiation optimization: All CT scans at this facility use at least one of these dose optimization techniques: automated exposure control; mA and/or kV adjustment per patient size (includes targeted exams where dose is matched to clinical indication); or iterative reconstruction. COMPARISON: CT abdomen pelvis con [id number] 11/18/2021 8:02 AM RADIATION DOSE METRICS: Total DLP (mGy-cm): 903.91 FINDINGS: Liver: Hepatic steatosis. Gallbladder and bile ducts: Cholecystectomy. Pancreas: Normal. No ductal dilation. Spleen: Normal. No splenomegaly. Adrenal glands: Left adrenal 16 mm indeterminate nodule, similar to prior exams, nonemergent adrenal imaging could further evaluate this. Kidneys and ureters: Normal. No hydronephrosis. Stomach and bowel: Unremarkable. No obstruction. No mucosal thickening. Appendix: No evidence of appendicitis. Intraperitoneal space: Unremarkable. No free air. No significant fluid collection. Vasculature: Unremarkable. No abdominal aortic aneurysm. Lymph nodes: Unremarkable. No enlarged lymph nodes. Urinary bladder: Unremarkable as visualized. Reproductive: Unremarkable as visualized. Bones/joints: Unremarkable. No acute fracture. Soft tissues: Unremarkable. CT/CT abdomen pelvis con [id number] IMPRESSION: 1. Negative for acute inflammatory process in the abdomen or pelvis. 2. Hepatic steatosis. 3. Cholecystectomy. 4. Left adrenal 16 mm indeterminate nodule, similar to prior exams, nonemergent adrenal imaging could further evaluate this.
[2022-08-20] MEDS: nitroglycerin 1 gm/inch oint Pkt 2 INCH TOPICAL (23:19)
[2022-08-20 23:26] LABS: Alanine Aminotransferase 37 U/L (0-33); Albumin Level 4.6 g/dL (3.5-5.2); Alkaline Phosphatase 130 U/L (35-105); Anion Gap 23.5 (5-19); Aspartate Amino Transferase 48 U/L (0-32); Blood Urea Nitrogen 19 mg/dL (6-20); Calcium 10.1 mg/dL (8.5-10.5); Carbon Dioxide 22 mmol/L (22-29); Chloride 96 mmol/L (98-107); Globulin 4.1 g/dL (1.3-4.6); Glomerular Filtration Rate 91.8 mL/min (90-130); Glucose 154 mg/dL (65-115); Lipase 18 U/L (13-60); Osmolality Calculated 291 mOsm/kg (285-295); Potassium 3.5 mmol/L (3.5-5.1); Sodium 138 mmol/L (136-145); Total Bilirubin 0.5 mg/dL (0.15-1.2); Total Protein 8.7 g/dL (6.6-8.7)
[2022-08-20 23:30] VITALS: BP 189/131; PULSE 116; RESP 18; O2SAT 91
[2022-08-20 23:41] LABS: C Reactive Protein 37.9 mg/L (0.0-4.9)
[2022-08-20] MEDS: ondansetron 2 mg/ML SDV 2 mL 4 MG IVP (23:45)
[2022-08-20] MEDS: HYDROmorphone 1 mg/mL INJ 1 mL IVP (23:46)
[2022-08-20] MEDS: labetalol 5 mg/mL SDV 20mL 20 MG IVP (23:48)
[2022-08-20] MEDS: naloxone 0.4 mg/ml SDV 0.8 MG IVP (23:51)
[2022-08-20] MEDS: naloxone 0.4 mg/ml SDV 0.8 MG (23:51)
[2022-08-20 23:54] VITALS: BP 274/90; PULSE 85; RESP 11; O2SAT 98
--- NOTE | 2022-08-20 23:58 | CTR_ITS ---
PROCEDURE INFORMATION: Exam: CT Head Without Contrast Exam date and time: 08/21/2022 1:03 AM Age: 42 years old Clinical indication: Altered mental status/memory loss; Additional info: Mental status change TECHNIQUE: Imaging protocol: Computed tomography of the head without contrast. Radiation optimization: All CT scans at this facility use at least one of these dose optimization techniques: automated exposure control; mA and/or kV adjustment per patient size (includes targeted exams where dose is matched to clinical indication); or iterative reconstruction. COMPARISON: CT head wo con* [id number] 06/11/2022 2:40 PM RADIATION DOSE METRICS: Total DLP (mGy-cm): 1284.68 FINDINGS: Brain: No evidence of acute intracranial hemorrhage. The charles-white matter differentiation is maintained. No significant mass effect or midline shift. Cerebral ventricles: Periventricular hypoattenuation are nonspecific however likely the sequela of chronic small-vessel ischemic disease. Pituitary gland and sella: There is a partial empty sella. Paranasal sinuses: Mild paranasal sinus disease is noted. No air-fluid levels. Mastoid air cells: Visualized mastoid air cells are well aerated. Bones/joints: Unremarkable. No acute fracture. Soft tissues: Unremarkable. Vasculature: There are atherosclerotic calcifications of the carotid siphons and the V4 segments of the vertebral arteries. CT/CT head wo con* [id number] IMPRESSION: No evidence of acute intracranial hemorrhage, mass effect, or midline shift.
[2022-08-21] VITALS (46 sets, daily range): BP systolic 83–216; BP diastolic 44–139; PULSE 63–237; RESP 10–23; TEMP 36.4–37; O2SAT 91–100; BMI 37.4
--- NOTE | 2022-08-21 00:01 | ECG_ITS ---
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 Measurements Intervals [place] Rate: 102 P: 45 [place]: 136 QRS: 0 QRSD: 93 T: 168 QT: 316 QTc: 413 Interpretive Statements SINUS TACHYCARDIA POSSIBLE LEFT ATRIAL ENLARGEMENT [-0.1mV P-WAVE IN V1/V2] LEFT VENTRICULAR HYPERTROPHY AND ST-T CHANGE [VOLTAGE CRITERIA PLUS ST/T ABNORMALITY] POSSIBLE ANTERIOR MYOCARDIAL INFARCTION , OF INDETERMINATE AGE [30 ms Q WAVE IN V3/V4, OR R < 0.2 mV IN V4] INFERIOR MYOCARDIAL INFARCTION , OF INDETERMINATE AGE [40+ ms Q WAVE AND/OR ST/T ABNORMALITY IN II/aVF] Compared to ECG 06/11/2022 14:30:49 Short [place] interval no longer present ST (T wave) deviation still present Myocardial infarct finding still present Electronically Signed On 08-23-2022 18:25:37 FINANCIAL ANALYST INTERN by Rahul Zambrano M.D. [id number]
--- NOTE | 2022-08-21 00:51 | PC.NURSE ---
This RN entered pt room to administer medications per physician order. Pt stated she was in pain. This RN informed her i would be giving zofran, dilauded, and labetolol. This RN pushed in said order over several minutes each. Dilauded was mixed in 9 mL of normal saline flush and pushed over 2 minutes. Labatelol was then administered over several minutes. This RN was removing pt bad IV when said pt name. This RN looked up to find pt starring and not responding. Sternal rub was done before calling for help. Pt oxygen saturation dropped and pt began turning blue. Dr. Alejo and several other nurses came to beside to help. This RN began bagging pt who had no respiratory effort. Intubation set up was being prepared by RT at bedside. Pt oxygen began to rise. Pt was given narcan. After several minutes pt became responsive to staff at bedside.
--- NOTE | 2022-08-21 01:00 | ECG_ITS ---
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 Measurements Intervals [place] Rate: 77 P: 36 NE: 122 QRS: 6 QRSD: 94 T: 33 QT: 385 QTc: 438 Interpretive Statements SINUS RHYTHM LEFT VENTRICULAR HYPERTROPHY AND ST-T CHANGE [VOLTAGE CRITERIA PLUS ST/T ABNORMALITY] POSSIBLE INFERIOR MYOCARDIAL INFARCTION , PROBABLY OLD [30 ms Q WAVE IN II/aVF] Compared to ECG 08/20/2022 23:01:16 Sinus tachycardia no longer present ST (T wave) deviation still present Myocardial infarct finding still present Electronically Signed On 08-23-2022 18:25:18 MICROFILMING DOCUMENT PREPARER by Rahul Zambrano M.D. [email or web address]
[2022-08-21] MEDS: ondansetron 4 MG Tablet PO (01:28)
[2022-08-21] MEDS: morphine 4 mg/mL SDV 1 mL IM (03:12)
[2022-08-21] MEDS: ondansetron 2 mg/ML SDV 2 mL 4 MG IM (03:13)
--- NOTE | 2022-08-21 04:15 | XRR_ITS ---
PROCEDURE INFORMATION: Exam: XR Chest Exam date and time: 08/21/2022 5:17 AM Age: 42 years old Clinical indication: Device placement; Other: Central line placement; Additional info: Post central line placement TECHNIQUE: Imaging protocol: Radiologic exam of the chest. Views: 1 view. COMPARISON: CR XR chest 1V portable [id number] 12/02/2021 5:58 PM FINDINGS: Tubes, catheters and devices: Right central venous catheter with tip overlying the right atrium. Lungs: Unremarkable. No consolidation. Pleural spaces: No pneumothorax. Heart/Mediastinum: There is mild cardiomegaly. Bones/joints: Unremarkable. XR/XR chest 1V portable [id number] IMPRESSION: 1. Right central venous catheter with tip overlying the right atrium. No pneumothorax. 2. Mild cardiomegaly.
[2022-08-21] MEDS: haloperidol inj 5 mg/mL INJ 1 mL IVP (04:20)
[2022-08-21] MEDS: morphine 4 mg/mL SDV 1 mL IVP ×2 (04:20→05:41)
[2022-08-21] MEDS: metoprolol tartrate 1 mg/1 mL SDV 5 mL 5 MG IVP (04:23)
[2022-08-21] MEDS: esmolol drip 2,500 MG/250 ML PREMIX 26.54 MG IV (05:04)
--- NOTE | 2022-08-21 05:34 | W.ED.ABDPA2 ---
HPI - Abdominal Pain General: Chief Complaint: Abdominal Pain Stated Complaint: abd pain Time Seen by Provider: 08/20/22 22:33 Source: patient History of Present Illness: 42-year-old female with multiple medical problems including labile hypertension and pancreatitis. She presents with abdominal pain and vomiting. This is been going on for 2 days. She has diffuse belly pain, and blood pressures that have been high. She has vomited multiple times she says. She denies fever. She denies significant diarrhea. MD elicited complaint: abdominal pain Onset (ago): day(s) Pain Consistency: constant Location: Diffuse Quality: stabbing and aching Migration to: no migration Exacerbating factors: eating and movement Relieving factors: nothing Associated Symptoms: Reports bloating, heartburn, poor appetite and vomiting; Denies coffee ground emesis, diarrhea, dysuria, fever(s) and syncope Related Data: Date of Last Menstrual Period: 11/02/21 Review of Systems Const: Denies: fever(s) ENMT: Reports: throat pain Card: Reports: chest pain (On and off) and palpitations; Denies: syncope Resp: Reports: dyspnea; Denies: productive cough or non-productive cough GI: Reports: vomiting, heartburn and bloating; Denies: coffee ground emesis or diarrhea : Denies: dysuria Neuro: Reports: headache(s) PFSH ED PFSH: Medical History Adrenal mass Adrenal mass CHF (congestive heart failure) Chronic pain of lower extremity, bilateral Chronic pancreatitis 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 Primary osteoarthritis Recurrent vomiting Therapeutic opioid induced constipation Surgical History History of bilateral knee replacement History of cholecystectomy History of D&C 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 Family History Grandmother Cancer Lung disease Stroke Mother Lung disease Other A-fib CHF (congestive heart failure) Social History Smoking and tobacco status: never smoked Alcohol intake: never Household members: spouse Housing: House Marital status: Current occupational status: disabled History of recent travel: No Female Reproductive History: Date of last menstrual period: 11/02/21 Physical Exam Const: GENERAL APPEARANCE: cooperative and ill appearing NUTRITIONAL APPEARANCE: obese HENMT: COMMON NORMALS: normocephalic, atraumatic and Normal external nose present HEAD & SCALP: normocephalic and atraumatic FACE & SINUS: face symmetric NOSE: Normal external nose present Eye: COMMON NORMALS: Equal, round and reactive pupils present and EOMs intact bilaterally PUPIL: Yes Equal, round and reactive pupils present Neck/C-Spine: GENERAL: Yes trachea midline Chest: CHEST: Yes Symmetrical chest wall rise Resp: COMMON NORMALS: clear to auscultation bilaterally EFFORT & INSPECTION: Yes tachypneic AUSCULTATION: clear to auscultation bilaterally Cardio: COMMON NORMALS: regular rhythm RATE: tachycardic RHYTHM: regular rhythm GI: COMMON NORMALS: Soft to palpation PALPATION: Yes Soft to palpation and Yes Tenderness to palpation present (GI) (Diffusely) Extremity: GENERAL: Yes edema (Mild) Neuro: KELLY COMA SCALE: document GCS findings Kelly coma scale eye opening: Spontaneous [place] coma scale verbal response: Orientated [place] coma scale motor response: Obey commands [place] coma scale total score: 15 SPEECH: speech normal Psych: COMMON NORMALS: cooperative Procedures Central Line Placement Right IJ: Time Out Performed: No Patient Placed on Monitor/Pulse Ox: Yes MD Prep: mask, gown and gloves Central Line Prep: Chlorhexidine scrub and sterile drapes applied Local Anesthetic: lidocaine 1% Amount of anesthesia used (mL): 3 Ultrasound Used for Placement: Yes Central Line Lumen Inserted: triple Post Procedure: sutured in place, good blood return, all ports aspirated, flushed, capped and sterile dressing applied Post Procedure X-Ray: tip of catheter in good position and no pneumothorax seen Patient Tolerated Procedure: well Complications: other (Tachycardia) Course Vital Signs: Vital signs: Vital Signs Temperature 99.2 F 08/20/22 22:08 Pulse Rate 137 H 08/21/22 05:03 Respiratory Rate 19 H 08/21/22 05:03 Blood Pressure 163/139 08/21/22 05:03 Pulse Oximetry 91 08/21/22 05:03 Oxygen Delivery Me thod 08/21/22 00:31 MDM - Abdominal Pain Medical Decision Making 42-year-old female comes presenting with abdominal pain and vomiting. These were her main original complaints. This patient is a very difficult IV stick. Multiple attempts were made. Her first 1 went bad. We then placed a small 1 in her forearm. Pain medication was given as well as labetalol for significant hypertension. Sometime after the Dilaudid was given, and while the labetalol was being given, the patient experienced a respiratory arrest. She maintained a pulse, but saturations went into the high 50s quite suddenly. She was bagged through this with [id number] respirations, immediately returning her pulse ox into the high 90s. She was not hypoxic for more than a minute or so significantly. Narcan was given, but as multiple medications had been given at that point, we do not know what improved the patient's status. Her states that she has a history of doing this, almost like a seizure he says. The patient continued to complain of abdominal pain and continued to vomit. Head CT and abdominal CT are negative. She remained quite hypertensive. It was decided that IV access was needed for symptom control and treatment. Right internal jugular was placed without complication, however during the procedure, her heart rate increased significantly. It appeared to be rapid atrial fibrillation on the monitor. EKG confirmed this. Chest x-ray shows a mildly deep line placement originally, and this was retracted. The line is currently in the right atrium. There is no pneumothorax. Heart rate remains high. She was given metoprolol for this, she has an allergy to calcium channel blockers involving facial swelling and shortness of breath. It seemed to help her heart rate initially. Cardiology was consulted, for suggestions for rate control. 2 suggestions given are esmolol and amiodarone. We will try esmolol for an hour or so to see if we can control heart rate. If not, bolus of amiodarone is suggested. The patient will go to the ICU. Hospitalist has accepted. Cardiology will consult. Lab Data 08/20/22 22:54 08/20/22 22:54 Labs/Radiology: Radiology Impressions Abdomen/Pelvis CT 08/20/22 23:14 IMPRESSION: 1. Negative for acute inflammatory process in the abdomen or pelvis. 2. Hepatic steatosis. 3. Cholecystectomy. 4. Left adrenal 16 mm indeterminate nodule, similar to prior exams, nonemergent adrenal imaging could further evaluate this. Head CT 08/20/22 23:58 IMPRESSION: No evidence of acute intracranial hemorrhage, mass effect, or midline shift. Laboratory Results WBC 17.5 10^3/uL (4.0-10.0) H 08/20/22 22:54 RBC 5.94 10^6/uL (4.1-5.3) H 08/20/22 22:54 Hgb 16.5 g/dL (11.5-15.3) H 08/20/22 22:54 Hct 51.9 % (37.0-47.0) H 08/20/22 22:54 MCV 87.4 fl (81-99) 08/20/22 22:54 MCH 27.8 pg (28.0-34.0) L 08/20/22 22:54 MCHC 31.8 g/dL (30.0-36.0) 08/20/22 22:54 RDW 13.9 % (12.1-15.1) 08/20/22 22:54 Plt Count 341 10^3/cmm (130-400) 08/20/22 22:54 MPV 11.2 fL (7.4-10.4) H 08/20/22 22:54 Neut % (Auto) 67.5 % 08/20/22 22:54 Lymph % (Auto) 25.3 % 08/20/22 22:54 [place] % (Auto) 5.8 % 08/20/22 22:54 Eos % (Auto) 0.2 % 08/20/22 22:54 Baso % (Auto) 0.6 % 08/20/22 22:54 Neut # (Auto) 11.81 10^3/uL (1.8-7.7) H 08/20/22 22:54 Lymph # (Auto) 4.4 10^3/uL (0.8-4.8) 08/20/22 22:54 [place] # (Auto) 1.0 10^3/uL (0.2-0.9) H 08/20/22 22:54 Eos # (Auto) 0.0 10^3/uL (0.0-0.8) 08/20/22 22:54 Baso # (Auto) 0.1 10^3/uL (0.0-0.1) 08/20/22 22:54 Nucleated RBC % (auto) 0 % 08/20/22 22:54 Nucleated RBCs # 0.0 /100WBC 08/20/22 22:54 Sodium 138 mmol/L (136-145) 08/20/22 22:54 Potassium 3.5 mmol/L (3.5-5.1) 08/20/22 22:54 Chloride 96 mmol/L (98-107) L 08/20/22 22:54 Carbon Dioxide 22 mmol/L (22-29) 08/20/22 22:54 Anion Gap 23.5 (5-19) H 08/20/22 22:54 BUN 19 mg/dL (6-20) 08/20/22 22:54 Creatinine 0.7 mg/dL (0.5-0.9) 08/20/22 22:54 GFR Calculation 91.8 mL/min (90-130) 08/20/22 22:54 Glucose 154 mg/dL (65-115) H 08/20/22 22:54 Calculated Osmolality 291 mOsm/kg (285-295) 08/20/22 22:54 Calcium 10.1 mg/dL (8.5-10.5) 08/20/22 22:54 Total Bilirubin 0.5 mg/dL (0.15-1.2) 08/20/22 22:54 AST 48 U/L (0-32) H 08/20/22 22:54 ALT 37 U/L (0-33) H 08/20/22 22:54 Alkaline Phosphatase 130 U/L (35-105) H 08/20/22 22:54 C-Reactive Protein 37.9 mg/L (0.0-4.9) H 08/20/22 22:54 Total Protein 8.7 g/dL (6.6-8.7) 08/20/22 22:54 Albumin 4.6 g/dL (3.5-5.2) 08/20/22 22:54 Globulin 4.1 g/dL (1.3-4.6) 08/20/22 22:54 Lipase 18 U/L (13-60) 08/20/22 22:54 Critical Care Time Critical Care Time: Critical Care Time: Yes Total Critical Care Time: 60 Attestation: This case had a high probability of a clinically significant, sudden, or life threatening deterioration of this patient's condition which required my full and direct attention, intervention and personal management. Time is independent of any procedures performed including central line placement. Discharge Plan Discharge Patient Disposition: Admitted As Inpatient Admit Provider: Laura Dial Condition: Serious Prescriptions: No Action (DME) wheelchair See Rx Instructions .Route .MEDSUPPLY Qty: 1 0RF Rx Instructions: patient needs replacement chair. (DME) STANDARD WHEELCHAIR See Rx Instructions .Route .MEDSUPPLY Qty: 1 0RF Rx Instructions: As directed furosemide 20 mg tablet 20 mg PO DAILY PRN (Reason: edema) Qty: 30 0RF tobramycin-dexamethasone [TobraDex] 0.3-0.1 % drops,suspension 2 drp ophthalmic (eye) QID 5 Days Qty: 2.5 0RF (DME) wheelchair See Rx Instructions .Route .MEDSUPPLY Qty: 1 0RF Rx Instructions: As directed ondansetron HCl 4 mg tablet 4 mg PO Q8H PRN (Reason: nausea and vomiting) Qty: 20 2RF Briviact 25 mg tablet 25 mg PO DAILY@08 Qty: 60 0RF pantoprazole 40 mg tablet,delayed release (DR/EC) 40 mg PO BID@08,20 Qty: 90 3RF zolpidem 5 mg tablet 5 mg PO BEDTIME PRN (Reason: Sleep) Qty: 30 3RF tizanidine 4 mg tablet 8 mg PO TID PRN (Reason: muscle spasticity) 30 Days Qty: 180 3RF morphine 30 mg tablet extended release 30 mg PO Q12H 30 Days Qty: 60 0RF Rx Instructions: at 0800/2000 Zenpep 40,000-126,000- 168,000 unit capsule,delayed release(DR/EC) 1 cap PO TID Qty: 90 8RF Rx Instructions: administer with meals and/or snacks diphenhydramine HCl [Benadryl] 25 mg Capsule 25 mg PO Q6H PRN (Reason: Allergy Symptoms) polyethylene glycol 3350 [Miralax] 17 gram/dose Powder 17 g PO QAM PRN (Reason: Constipation) lorazepam [Ativan] 0.5 mg tablet 0.5 mg PO DAILY PRN (Reason: agitation) Qty: 7 0RF carvedilol 12.5 mg tablet 12.5 mg PO BID prochlorperazine maleate 10 mg tablet 10 mg PO Q8H PRN (Reason: Nausea And Vomiting) hydralazine 10 mg tablet 10 mg PO Q8H PRN (Reason: Blood Pressure) Referrals: Yony Otero MD [Primary Care Provider] - Coding Level of Care Code 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
[2022-08-21 06:13] LABS: Troponin(5th) Baseline 35 ng/L (0-10)
--- NOTE | 2022-08-21 06:40 | PC.NURSE ---
Pt here from ER via gt. Bedside report received from ER. This nurse and Evans RN were at bedside for hand off report
--- NOTE | 2022-08-21 07:13 | P.HP_ITS ---
Providers/Chief Complaint Admitting Physician: Laura Dial MD Primary Care Provider: Yony Otero MD Chief Complaint: abd pain History of Present Illness Eleanor Ragland is a 42 year old female with a history of chronic pancreatitis. She has a left adrenal nodule. Previously there was a concern that she has pheochromocytoma given that she has extremely labile blood pressures and her heart rate ranges anywhere between 1 20-200 at home. It appears this is A. fib versus SVT. She has been seen by calender roll press operator at [facility] where eventually it was opined that suspicion for pheochromocytoma is very slim. She cannot take any alpha blockers as it causes significant hypotension. She apparently also has a history of hypertrophic obstructive cardiomyopathy with bibasilar asymm etric septal thickening. She also has aortic stenosis with a bicuspid aortic valve and moderate eccentric aortic regurgitation. She presented in the emergency room last night complaining of [place] sick for 4 days. Her symptoms are nausea vomiting abdominal pain and low-grade fever. CT is negative for pancreatitis. Lipase is normal. Her blood pressure upon initial arrival was noted to be greater than 200. She received labetalol for hypertension and Dilaudid for pain control and shortly thereafter went into respiratory arrest in the ER. She maintained a pulse and had saturation in the 50s, she was bagged through with this and with the bagging itself her saturation returned in the 90s. She did not need to be intubated. She did receive Narcan. Apparently patient has had these symptoms before and has been diagnosed with partial seizures. There was no postictal confusion. There was no IV access able to be placed peripherally overnight therefore she has a right IJ central line. After IJ was placed she went into A. fib with RVR for which she was started on esmolol drip and has remained on this for an hour without any change or improvement in heart rate. Review of Systems General: Reports: 10 or more systems reviewed and unremarkable except in HPI and below Const: Reports: fever(s); Denies: chills or body aches Eyes: Denies: change in vision, blurry vision or photophobia ENMT: Reports: hoarseness; Denies: throat pain, enlarged tonsils, odynophagia or nasal congestion Card: Denies: chest pain, palpitations, irregular heart rhythm, edema, swelling of feet/ankles, lightheadedness, pre-syncope, dyspnea on exertion or orthopnea Resp: Denies: dyspnea, productive cough, non-productive cough, wheezing, stridor, pain on inspiration, change in phlegm color, hemoptysis or chest congestion GI: Denies: abdominal pain, nausea, vomiting, hematemesis, coffee ground emesis, dysphagia, heartburn, diarrhea, constipation, GI cramping, change in stool character, hematochezia or melena : Denies: flank pain, difficulty voiding, dysuria, urinary frequency, urinary urgency, urinary hesitancy or hematuria Musc: Denies: neck pain, back pain, extremity pain, joint swelling, joint warmth or deformity Neuro: Denies: headache(s), numbness in extremities, weakness in extremities, sensory changes, difficulty walking, frequent falls, dizziness, vertigo, behavioral changes, Slurred speech present or seizure-like activity Psych: Denies: anxiety, depression, suicidal ideation or homicidal ideation Endo: Denies: polyuria, polydipsia, tired all the time, cold intolerance or hot flashes Benjy/Lymph: Denies: easy bruising or easy bleeding Medications/Allergies Home Medications Medication Instructions Recorded Confirmed Last Taken Type wheelchair #1 ea 03/26/21 06/24/22 Unknown Rx wheelchair #1 ea 05/28/21 06/24/22 Unknown Rx STANDARD WHEELCHAIR #1 ea 05/29/21 06/24/22 Unknown Rx diphenhydramine HCl 25 mg capsule 25 mg PO Q6H PRN Allergy Symptoms 10/26/21 06/24/22 Unknown History (Benadryl) polyethylene glycol 3350 17 17 g PO QAM PRN Constipation 10/26/21 06/24/22 Unknown History gram/dose oral powder (Miralax) furosemide 20 mg tablet 20 mg PO DAILY PRN edema #30 tabs 11/13/21 06/24/22 Unknown Rx lorazepam 0.5 mg tablet (Ativan) 0.5 mg PO DAILY PRN agitation #7 11/19/21 06/24/22 Unknown Rx tabs ondansetron HCl 4 mg tablet 4 mg PO Q8H PRN nausea and 03/10/22 06/24/22 Unknown Rx vomiting #20 tabs brivaracetam 25 mg tablet 25 mg PO DAILY@08 #60 tabs 03/29/22 06/24/22 06/08/22 Rx (Briviact) pantoprazole 40 mg tablet,delayed 40 mg PO BID@ #90 tabs 05/18/22 06/24/22 06/07/22 Rx release carvedilol 12.5 mg tablet 12.5 mg PO BID 06/08/22 06/24/22 06/07/22 History hydralazine 10 mg tablet 10 mg PO Q8H PRN Blood Pressure 06/08/22 06/24/22 06/07/22 History prochlorperazine maleate 10 mg 10 mg PO Q8H PRN Nausea And 06/08/22 06/24/22 06/07/22 History tablet Vomiting tobramycin 0.3 %-dexamethasone 0.1 2 drp ophthalmic (eye) QID 5 days 06/24/22 06/24/22 Unknown Rx % eye drops,suspension (TobraDex) #2.5 mL zolpidem 5 mg tablet 5 mg PO BEDTIME PRN Sleep #30 tabs 07/16/22 Unknown Rx tizanidine 4 mg tablet 8 mg PO TID PRN muscle spasticity 07/27/22 Unknown Rx 30 days #180 tabs morphine 30 mg tablet,extended 30 mg PO Q12H 1 month #60 tabs 08/05/22 Unknown Rx release [id number] 1 cap PO TID #90 caps 08/16/22 Unknown Rx 40,000-126,000-168,000 unit capsule, delay rel (Zenpep) Allergies Allergy/AdvReac Type Severity Reaction Status Date / Time canagliflozin [From Invokana] Allergy Severe abdominal Verified 06/24/22 14:14 pain enalaprilat Allergy Severe tongue Verified 06/24/22 14:14 swelling aspirin Allergy Unknown Verified 06/24/22 14:14 ketorolac [From Toradol] Allergy Unknown Verified 06/24/22 14:14 nicardipine Allergy ALGY-Difficulty Verified 06/24/22 14:14 Breathing tramadol [From Ultram] Allergy Unknown Verified 06/24/22 14:14 PFSH Acute PFSH: Medical History Adrenal mass Adrenal mass CHF (congestive heart failure) Chronic pain of lower extremity, bilateral Chronic pancreatitis 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 Primary osteoarthritis Recurrent vomiting Therapeutic opioid induced constipation Surgical History History of bilateral knee replacement History of cholecystectomy History of D&C 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 Family History Grandmother Cancer Lung disease Stroke Mother Lung disease Other A-fib CHF (congestive heart failure) Social History Smoking and tobacco status: never smoked Alcohol intake: never Household members: spouse Housing: House Marital status: Current occupational status: disabled History of recent travel: No Female Reproductive History: Date of last menstrual period: 11/02/21 Vitals/I&O/Wt Last Vital Signs Temp 99.2 F 08/20/22 22:08 Pulse 137 H 08/21/22 05:03 Resp 19 H 08/21/22 05:03 BP 163/139 08/21/22 05:03 Pulse Ox 91 08/21/22 05:03 O2 Del Method 08/21/22 06:38 08/20/22 08/21/22 08/21/22 22:59 06:59 14:59 Intake Total 86.684 / 86.684 Balance 86.684 / 86.684 Weight last 48 hrs Weight 86.999 kg Weight 88.451 kg Physical Exam Narrative: General: No acute distress, AO x3 HEENT: PERRLA, pupils bilaterally equal and reactive, pallors not present Chest: Normal vesicular breath sounds, no added sounds, equal good air entry bilaterally CVS: S1-S2 irregular, no murmurs, no tachycardia, no gallops, no rubs Abdomen: Soft, nontender, no organomegaly, bowel sounds present Neuro: No focal deficits, no facial deformity, AO x3, power 5/5 in all limbs Data 08/20/22 22:54 08/20/22 22:54 Other Labs: Radiology Impressions Abdomen/Pelvis CT 08/20/22 23:14 IMPRESSION: 1. Negative for acute inflammatory process in the abdomen or pelvis. 2. Hepatic steatosis. 3. Cholecystectomy. 4. Left adrenal 16 mm indeterminate nodule, similar to prior exams, nonemergent adrenal imaging could further evaluate this. Head CT 08/20/22 23:58 IMPRESSION: No evidence of acute intracranial hemorrhage, mass effect, or midline shift. Chest X-Ray 08/21/22 04:15 IMPRESSION: 1. Right central venous catheter with tip overlying the right atrium. No pneumothorax. 2. Mild cardiomegaly. Laboratory Results WBC 17.5 10^3/uL (4.0-10.0) H 08/20/22 22:54 RBC 5.94 10^6/uL (4.1-5.3) H 08/20/22 22:54 Hgb 16.5 g/dL (11.5-15.3) H 08/20/22 22:54 Hct 51.9 % (37.0-47.0) H 08/20/22 22:54 MCV 87.4 fl (81-99) 08/20/22 22:54 MCH 27.8 pg (28.0-34.0) L 08/20/22 22:54 MCHC 31.8 g/dL (30.0-36.0) 08/20/22 22:54 RDW 13.9 % (12.1-15.1) 08/20/22 22:54 Plt Count 341 10^3/cmm (130-400) 08/20/22 22:54 MPV 11.2 fL (7.4-10.4) H 08/20/22 22:54 Neut % (Auto) 67.5 % 08/20/22 22:54 Lymph % (Auto) 25.3 % 08/20/22 22:54 [place] % (Auto) 5.8 % 08/20/22 22:54 Eos % (Auto) 0.2 % 08/20/22 22:54 Baso % (Auto) 0.6 % 08/20/22 22:54 Neut # (Auto) 11.81 10^3/uL (1.8-7.7) H 08/20/22 22:54 Lymph # (Auto) 4.4 10^3/uL (0.8-4.8) 08/20/22 22:54 [place] # (Auto) 1.0 10^3/uL (0.2-0.9) H 08/20/22 22:54 Eos # (Auto) 0.0 10^3/uL (0.0-0.8) 08/20/22 22:54 Baso # (Auto) 0.1 10^3/uL (0.0-0.1) 08/20/22 22:54 Nucleated RBC % (auto) 0 % 08/20/22 22:54 Nucleated RBCs # 0.0 /100WBC 08/20/22 22:54 Sodium 138 mmol/L (136-145) 08/20/22 22:54 Potassium 3.5 mmol/L (3.5-5.1) 08/20/22 22:54 Chloride 96 mmol/L (98-107) L 08/20/22 22:54 Carbon Dioxide 22 mmol/L (22-29) 08/20/22 22:54 Anion Gap 23.5 (5-19) H 08/20/22 22:54 BUN 19 mg/dL (6-20) 08/20/22 22:54 Creatinine 0.7 mg/dL (0.5-0.9) 08/20/22 22:54 GFR Calculation 91.8 mL/min (90-130) 08/20/22 22:54 Glucose 154 mg/dL (65-115) H 08/20/22 22:54 Calculated Osmolality 291 mOsm/kg (285-295) 08/20/22 22:54 Calcium 10.1 mg/dL (8.5-10.5) 08/20/22 22:54 Total Bilirubin 0.5 mg/dL (0.15-1.2) 08/20/22 22:54 AST 48 U/L (0-32) H 08/20/22 22:54 ALT 37 U/L (0-33) H 08/20/22 22:54 Alkaline Phosphatase 130 U/L (35-105) H 08/20/22 22:54 Troponin T Baseline 35 ng/L (0-10) H 08/21/22 05:40 C-Reactive Protein 37.9 mg/L (0.0-4.9) H 08/20/22 22:54 Total Protein 8.7 g/dL (6.6-8.7) 08/20/22 22:54 Albumin 4.6 g/dL (3.5-5.2) 08/20/22 22:54 Globulin 4.1 g/dL (1.3-4.6) 08/20/22 22:54 Lipase 18 U/L (13-60) 08/20/22 22:54 Procalcitonin 0.18 ng/mL (0-0.5) 08/21/22 05:40 TSH 1.25 uIU/mL (0.27-4.20) 08/21/22 05:40 A&P Assessment and plan (1) Labile hypertension: (2) Atrial fibrillation with RVR: (3) Bicuspid aortic valve: Plan Patient presenting to the emergency room with hypertension, abdominal pain nausea vomiting and low-grade fever over the last 4 days. Received labetalol and Dilaudid in the ER after which she went into transient respiratory arrest resolved by bag mask ventilation and administration of Narcan. Currently patient is in A. fib with RVR with heart rate ranging in the 170s. Currently heart rate is between 130 to 150 bpm in spite of being for 1 hour on the esmolol drip. Discontinue esmolol drip, switch to amiodarone infusion after starting bolus with 150 mg IV over 10 minutes. Baseline troponin is a 35, pending 2 one 6-hour levels. Last RUTHIE from November 2021 showed asymmetric left ventricular hypertrophy, bicuspid aortic valve, mild aortic valve stenosis, moderate aortic valve regurgitation. She typically follows with general science teacher at [facility]. Abdomen pelvis CT today is unremarkable. She has a history of chronic pancreatitis but currently lipase is negative, as is her abdominal CT. Chest x- ray is without signs of gross consolidation. Pro-Evaristo negative Check blood culture, UA, urine culture to evaluate for underlying sources of infection. Check respiratory viral panel to look for influenza versus COVID. Cardiology consulted from ER. Blood pressure currently 145/103, will continue home doses of carvedilol, hydralazine 10 mg p.o. every 8 as needed IV Zofran, IV Reglan alternating for nausea control. Attestations Medical Necessity Statement*: Anticipate greater than 2 midnight admission for management of A. 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
[2022-08-21] MEDS: esmolol drip 2,500 MG/250 ML PREMIX 132.68 MG IV (07:38)
[2022-08-21] MEDS: acetaminophen 1,000 MG/100 ML PIGGYBACK 400 MG IV (07:39)
[2022-08-21] MEDS: enoxaparin 40 mg/0.4 mL Syringe SUBCUT ×2 (07:39→11:39)
[2022-08-21 07:42] LABS: Procalcitonin 0.18 ng/mL (0-0.5); Thyroid Stimulating Hormone 1.25 uIU/mL (0.27-4.20)
[2022-08-21] MEDS: morphine ER (12 HR) 30 mg tablet PO ×2 (07:43→21:02)
--- NOTE | 2022-08-21 07:54 | ECG_ITS ---
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 Measurements Intervals [place] Rate: 149 P: 0 PA: 0 QRS: 2 QRSD: 94 T: -22 QT: 306 QTc: 482 Interpretive Statements ATRIAL FIBRILLATION WITH RAPID VENTRICULAR RESPONSE MODERATE VOLTAGE CRITERIA FOR LVH, CONSIDER NORMAL VARIANT [MEETS CRITERIA IN ONE OF: R(aVL), S(V1), R(V5), R(V5/V6)+S(V1)] INFERIOR MYOCARDIAL INFARCTION , OF INDETERMINATE AGE [40+ ms Q WAVE AND/OR ST/T ABNORMALITY IN II/aVF] Compared to ECG 08/21/2022 00:01:09 Sinus rhythm no longer present ST (T wave) deviation no longer present Myocardial infarct finding still present Electronically Signed On 08-23-2022 18:31:00 INSTRUCTIONAL COACH by Rahul Zambrano M.D. [id number]
[2022-08-21 08:26] LABS: Troponin 5 2HR 56.75 ng/L (0-10)
[2022-08-21 08:31] LABS: Troponin 5 2HR Delta 21.75 ABS# (0-10)
[2022-08-21] MEDS: metoclopramide 5 mg/mL SDV 2 mL IVP ×2 (08:49→16:08)
[2022-08-21] MEDS: pantoprazole DR 40 mg Tablet PO ×2 (09:39→21:02)
[2022-08-21] MEDS: tizanidine 4 mg Tablet 8 MG PO ×3 (09:39→23:31)
[2022-08-21] MEDS: carvedilol 12.5 mg Tablet PO ×2 (09:39→18:30)
--- NOTE | 2022-08-21 09:45 | PM.CONSULT ---
Providers/Reason For Consult Consulting Physician/Specialty*: Rahul Zambrano MD/Cardiology Reason for Consult*: Atrial fibrillation with RVR Requesting Physician: Dr Dial Attending Physician: Laura Dial MD Primary Care Provider: Yony Otero MD History of Present Illness History of Present Illness Eleanor Ragland is a 42 year old female with past medical history of chronic pancreatitis, concern for pheochromocytoma, history of adrenal nodule being followed by endocrinology at [facility] who presented to the hospital with not feeling well for the last 4 days. She was having abdominal discomfort, nausea and vomiting. CT was negative for pancreatitis. She went into respiratory distress after receiving Dilaudid and labetalol. Subsequently went into A. fib with RVR with heart rates around 170-180s. Patient did have hypotensive episodes. Review of Systems General: Reports: 10 or more systems reviewed and unremarkable except in HPI and below Const: Reports: fever(s); Denies: chills or body aches Eyes: Denies: change in vision, blurry vision or photophobia ENMT: Reports: hoarseness; Denies: throat pain, enlarged tonsils, odynophagia or nasal congestion Card: Reports: palpitations and dyspnea on exertion; Denies: chest pain, irregular heart rhythm, edema, swelling of feet/ankles, lightheadedness, pre-syncope or orthopnea Resp: Denies: dyspnea, productive cough, non-productive cough, wheezing, stridor, pain on inspiration, change in phlegm color, hemoptysis or chest congestion GI: Denies: abdominal pain, nausea, vomiting, hematemesis, coffee ground emesis, dysphagia, heartburn, diarrhea, constipation, GI cramping, change in stool character, hematochezia or melena : Denies: flank pain, difficulty voiding, dysuria, urinary frequency, urinary urgency, urinary hesitancy or hematuria Musc: Denies: neck pain, back pain, extremity pain, joint swelling, joint warmth or deformity Neuro: Denies: headache(s), numbness in extremities, weakness in extremities, sensory changes, difficulty walking, frequent falls, dizziness, vertigo, behavioral changes, Slurred speech present or seizure-like activity Psych: Denies: anxiety, depression, suicidal ideation or homicidal ideation Endo: Denies: polyuria, polydipsia, tired all the time, cold intolerance or hot flashes Benjy/Lymph: Denies: easy bruising or easy bleeding Medications/Allergies Home Medications Medication Instructions Recorded Confirmed Last Taken Type wheelchair #1 ea 03/26/21 08/21/22 Unknown Rx wheelchair #1 ea 05/28/21 08/21/22 Unknown Rx STANDARD WHEELCHAIR #1 ea 05/29/21 08/21/22 Unknown Rx diphenhydramine HCl 25 mg capsule 25 mg PO Q6H PRN Allergy Symptoms 10/26/21 08/21/22 Unknown History (Benadryl) polyethylene glycol 3350 17 17 g PO QAM PRN Constipation 10/26/21 08/21/22 Unknown History gram/dose oral powder (Miralax) furosemide 20 mg tablet 20 mg PO DAILY PRN edema #30 tabs 11/13/21 08/21/22 Unknown Rx ondansetron HCl 4 mg tablet 4 mg PO Q8H PRN nausea and 03/10/22 08/21/22 Unknown Rx vomiting #20 tabs brivaracetam 25 mg tablet 25 mg PO DAILY@08 #60 tabs 03/29/22 08/21/22 06/08/22 Rx (Briviact) pantoprazole 40 mg tablet,delayed 40 mg PO BID@08,20 #90 tabs 05/18/22 08/21/22 06/07/22 Rx release carvedilol 12.5 mg tablet 12.5 mg PO BID 06/08/22 08/21/22 06/07/22 History prochlorperazine maleate 10 mg 10 mg PO Q8H PRN Nausea And 06/08/22 08/21/22 06/07/22 History tablet Vomiting tobramycin 0.3 %-dexamethasone 0.1 2 drp ophthalmic (eye) QID 5 days 06/24/22 08/21/22 Unknown Rx % eye drops,suspension (TobraDex) #2.5 mL zolpidem 5 mg tablet 5 mg PO BEDTIME PRN Sleep #30 tabs 07/16/22 08/21/22 Unknown Rx tizanidine 4 mg tablet 8 mg PO TID PRN muscle spasticity 07/27/22 08/21/22 Unknown Rx 30 days #180 tabs morphine 30 mg tablet,extended 30 mg PO Q12H 1 month #60 tabs 08/05/22 08/21/22 Unknown Rx release [id number]-[id number]-gsnzqib 1 cap PO TID #90 caps 08/16/22 08/21/22 Unknown Rx 40,000-126,000-168,000 unit capsule, delay rel (Zenpep) hydralazine 50 mg tablet 50 mg PO Q8H PRN Blood Pressure 08/21/22 08/21/22 Unknown History isosorbide mononitrate 30 mg 15 mg PO DAILY 08/21/22 08/21/22 Unknown History tablet,extended release 24 hr spironolactone 25 mg tablet 25 mg PO DAILY 08/21/22 08/21/22 Unknown History Allergies Allergy/AdvReac Type Severity Reaction Status Date / Time canagliflozin [From Invokana] Allergy Severe abdominal Verified 06/24/22 14:14 pain enalaprilat Allergy Severe tongue Verified 06/24/22 14:14 swelling aspirin Allergy Unknown Verified 06/24/22 14:14 ketorolac [From Toradol] Allergy Unknown Verified 06/24/22 14:14 nicardipine Allergy ALGY-Difficulty Verified 06/24/22 14:14 Breathing tramadol [From Ultram] Allergy Unknown Verified 06/24/22 14:14 Current Medications Generic Name Dose Route Start Last Admin Trade Name Freq PRN Reason Stop Dose Admin Carvedilol 12.5 mg 08/21/22 09:00 08/21/22 09:39 Carvedilol 12.5 Mg Tablet PO 12.5 mg BID LEANDRA Administration Enoxaparin Sodium 40 mg 08/21/22 08:00 08/21/22 07:39 Enoxaparin 40 Mg/0.4 Ml Syringe SUBCUT 40 mg Q24H LEANDRA Administration Amiodarone HCl 900 mg/ 518 mls @ 0 mls/hr 08/21/22 07:45 08/21/22 08:42 Dextrose/ IV Miscellaneous IV 1 mg/min Supplies .Q0M LEANDRA 34.53 mls/hr Administration Protocol Per Protocol Metoclopramide HCl 5 mg 08/21/22 06:56 08/21/22 08:49 Metoclopramide 5 Mg/Ml Sdv 2 Ml IVP 5 mg Q8H PRN Administration NAUSEA AND VOMITING Morphine Sulfate 30 mg 08/21/22 08:00 08/21/22 07:43 Morphine Er (12 Hr) 30 Mg Tablet PO 30 mg Q12H LEANDRA Administration Non-Formulary Medication 25 mg 08/21/22 08:00 08/21/22 08:23 Brivaracetam [Briviact] PO Not Given DAILY@08 [facility] Pantoprazole Sodium 40 mg 08/21/22 08:00 08/21/22 09:[address] 40 Mg Tablet PO 40 mg BID@08,20 LEANDRA Administration Tizanidine HCl 8 mg 08/21/22 08:09 08/21/22 09:39 Tizanidine 4 Mg Tablet PO 8 mg TID PRN Administration SPASMS PFSH Acute PFSH: Medical History Adrenal mass Adrenal mass CHF (congestive heart failure) Chronic pain of lower extremity, bilateral Chronic pancreatitis 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 Primary osteoarthritis Recurrent vomiting Therapeutic opioid induced constipation Surgical History History of bilateral knee replacement History of cholecystectomy History of D&C 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 Family History Grandmother Cancer Lung disease Stroke Mother Lung disease Other A-fib CHF (congestive heart failure) Social History Smoking and tobacco status: never smoked Alcohol intake: never Household members: spouse Housing: House Marital status: Current occupational status: disabled History of recent travel: No Female Reproductive History: Date of last menstrual period: 11/02/21 Vitals/I&O/Wt Last Vital Signs Temp 97.8 F 08/21/22 06:45 Pulse 140 H 08/21/22 08:15 Resp 12 08/21/22 08:15 BP 83/55 08/21/22 08:15 Pulse Ox 95 08/21/22 08:15 O2 Del Method 08/21/22 08:15 O2 Flow Rate 2 08/21/22 08:15 11/08/21/22 08/21/22 22:59 06:59 14:59 Intake Total 86.684 / 86.684 281.316 / 281.316 Balance 86.684 / 86.684 281.316 / 281.316 Weight last 48 hrs Weight 191 lb 12.8 oz Weight 195 lb Physical Exam Narrative: GENERAL: Patient is alert, awake and oriented x3. [] NECK: No jugular vein distension. [] HEENT: No cyanosis. No icterus. No pallor. [] HEART: Regular S1 and S2. No murmur, rub or gallop. [] LUNGS: Clear to auscultate bilaterally. [] ABDOMEN: Soft, nontender and nondistended. Positive bowel sounds. No guarding, rebound or tenderness. [] CENTRAL NERVOUS SYSTEM: Grossly nonfocal. [] EXTREMITIES: Lower extremities with 1+ edema bilaterally. Pulses palpable in the lower extremities, both dorsalis pedis and posterior tibial. [] Data 08/20/22 22:54 08/20/22 22:54 A&P Assessment and plan (1) Atrial fibrillation with RVR: (2) Bicuspid aortic valve: (3) Labile hypertension: (4) Aortic regurgitation: Plan Patient has atrial fibrillation with RVR with heart rates nearing 200 bpm. She is also getting transiently hypotensive. Also has symptoms. We will proceed with cardioversion. Anticoagulation post cardioversion. Continue amiodarone drip. Thank you for involving us with care of this patient. We will continue to follow. Please call with questions Consult Attestations Medical Necessity Statement: Care expected to cross 2 midnights. Coding Level of Care Code Acute Stubber for Heather Huntd Diagnoses Atrial fibrillation with RVR I48.91 Bicuspid aortic valve Q23.1 Labile hypertension R09.89 Aortic regurgitation I35.1
--- NOTE | 2022-08-21 10:00 | ANES.PREANE2 ---
Pre-Anesthetic Assessment Height/Weight: Height 1.52 m Weight 86.999 kg Temp Pulse Resp BP Pulse Ox O2 Del Method O2 Flow Rate 97.8 F 140 H 12 83/55 95 2 08/21/22 06:45 08/21/22 08:15 08/21/22 08:15 08/21/22 08:15 08/21/22 08:15 08/21/22 08:15 08/21/22 08:15 Preop Diagnosis: zimble Cardioversion Familial anesthetic complications: None Last intake: > 8 hrs Social No alcohol and No tobacco Exam alert, oriented x 3, clear to auscultation bilaterally and regular rate & rhythm (A fib w/ RVR) Airway Mallampati: Class IV Dentition: other (no teeth) CV/HEM Atrial Fibrillation (w. RVR) and Hypertension hOCM GI Gastroesophageal Reflux Disease pacnreatitis Neuropsych Seizure Anesthetic Plan ASA status: 4E Anesthesia: MAC Risk of > 500 ml blood loss (7ml/kg in children): No Medications/Allergies Home Medications Medication Instructions Recorded Confirmed Last Taken Type wheelchair #1 ea 03/26/21 06/24/22 Unknown Rx wheelchair #1 ea 05/28/21 06/24/22 Unknown Rx STANDARD WHEELCHAIR #1 ea 05/29/21 06/24/22 Unknown Rx diphenhydramine HCl 25 mg capsule 25 mg PO Q6H PRN Allergy Symptoms 10/26/21 06/24/22 Unknown History (Benadryl) polyethylene glycol 3350 17 17 g PO QAM PRN Constipation 10/26/21 06/24/22 Unknown History gram/dose oral powder (Miralax) furosemide 20 mg tablet 20 mg PO DAILY PRN edema #30 tabs 11/13/21 06/24/22 Unknown Rx lorazepam 0.5 mg tablet (Ativan) 0.5 mg PO DAILY PRN agitation #7 11/19/21 06/24/22 Unknown Rx tabs ondansetron HCl 4 mg tablet 4 mg PO Q8H PRN nausea and 03/10/22 06/24/22 Unknown Rx vomiting #20 tabs brivaracetam 25 mg tablet 25 mg PO DAILY@08 #60 tabs 03/29/22 06/24/22 06/08/22 Rx (Briviact) pantoprazole 40 mg tablet,delayed 40 mg PO BID@08,20 #90 tabs 05/18/22 06/24/22 06/07/22 Rx release carvedilol 12.5 mg tablet 12.5 mg PO BID 06/08/22 06/24/22 06/07/22 History hydralazine 10 mg tablet 10 mg PO Q8H PRN Blood Pressure 06/08/22 06/24/22 06/07/22 History prochlorperazine maleate 10 mg 10 mg PO Q8H PRN Nausea And 06/08/22 06/24/22 06/07/22 History tablet Vomiting tobramycin 0.3 %-dexamethasone 0.1 2 drp ophthalmic (eye) QID 5 days 06/24/22 06/24/22 Unknown Rx % eye drops,suspension (TobraDex) #2.5 mL zolpidem 5 mg tablet 5 mg PO BEDTIME PRN Sleep #30 tabs 07/16/22 Unknown Rx tizanidine 4 mg tablet 8 mg PO TID PRN muscle spasticity 07/27/22 Unknown Rx 30 days #180 tabs morphine 30 mg tablet,extended 30 mg PO Q12H 1 month #60 tabs 08/05/22 Unknown Rx release hshqlr-gnbuldcb-klynbzy 1 cap PO TID #90 caps 08/16/22 Unknown Rx 40,000-126,000-168,000 unit capsule, delay rel (Zenpep) Allergies Allergy/AdvReac Type Severity Reaction Status Date / Time canagliflozin [From Invokana] Allergy Severe abdominal Verified 06/24/22 14:14 pain enalaprilat Allergy Severe tongue Verified 06/24/22 14:14 swelling aspirin Allergy Unknown Verified 06/24/22 14:14 ketorolac [From Toradol] Allergy Unknown Verified 06/24/22 14:14 nicardipine Allergy ALGY-Difficulty Verified 06/24/22 14:14 Breathing tramadol [From Ultram] Allergy Unknown Verified 06/24/22 14:14 Current Medications Generic Name Dose Route Start Last Admin Trade Name Freq PRN Reason Stop Dose Admin Carvedilol 12.5 mg 08/21/22 09:00 08/21/22 09:39 Carvedilol 12.5 Mg Tablet PO 12.5 mg BID LEANDRA Administration Amiodarone HCl 900 mg/ 518 mls @ 0 mls/hr 08/21/22 07:45 08/21/22 08:42 Dextrose/ IV Miscellaneous IV 1 mg/min Supplies .Q0M LEANDRA 34.53 mls/hr Administration Protocol Per Protocol Metoclopramide HCl 5 mg 08/21/22 06:56 08/21/22 08:49 Metoclopramide 5 Mg/Ml Sdv 2 Ml IVP 5 mg Q8H PRN Administration NAUSEA AND VOMITING Morphine Sulfate 30 mg 08/21/22 08:00 08/21/22 07:43 Morphine Er (12 Hr) 30 Mg Tablet PO 30 mg Q12H LEANDRA Administration Non-Formulary Medication 25 mg 08/21/22 08:00 08/21/22 08:23 Brivaracetam [Briviact] PO Not Given DAILY@08 [facility] Pantoprazole Sodium 40 mg 08/21/22 08:00 08/21/22 09:[address] 40 Mg Tablet PO 40 mg BID@08,20 [facility] Administration Tizanidine HCl 8 mg 08/21/22 08:09 08/21/22 09:39 Tizanidine 4 Mg Tablet PO 8 mg TID PRN Administration SPASMS PFSH Anesthesia Medical History Adrenal mass Adrenal mass CHF (congestive heart failure) Chronic pain of lower extremity, bilateral Chronic pancreatitis 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 Primary osteoarthritis Recurrent vomiting Therapeutic opioid induced constipation Surgical History History of bilateral knee replacement History of cholecystectomy History of D&C 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 Family History Grandmother Cancer Lung disease Stroke Mother Lung disease Other A-fib CHF (congestive heart failure) Social History Smoking and tobacco status: never smoked Alcohol intake: never Household members: spouse Housing: House Marital status: Current occupational status: disabled History of recent travel: No Female Reproductive History Date of last menstrual period: 11/02/21 Data Anesthesia 08/20/22 22:54 08/20/22 22:54 Short CBC 08/20/22 Range/Units 22:54 WBC 17.5 H (4.0-10.0) 10^3/uL Hgb 16.5 H (11.5-15.3) g/dL Hct 51.9 H (37.0-47.0) % MCV 87.4 (81-99) fl Plt Count 341 (130-400) 10^3/cmm Neut % (Auto) 67.5 % Neut # (Auto) 11.81 H (1.8-7.7) 10^3/uL BMP 08/20/22 22:54 Sodium 138 Potassium 3.5 Chloride 96 L Carbon Dioxide 22 BUN 19 Creatinine 0.7 Glucose 154 H Calcium 10.1 Cardiac Enzymes 08/21/22 08/21/22 Range/Units 05:40 07:43 Troponin T Baseline 35 H (0-10) ng/L Troponin T 120 Minute 56.75 H (0-10) ng/L Delta Troponin T 21.75 H* (0-10) ABS# Liver Function 08/20/22 Range/Units 22:54 Total Bilirubin 0.5 (0.15-1.2) mg/dL AST 48 H (0-32) U/L ALT 37 H (0-33) U/L Alkaline Phosphatase 130 H (35-105) U/L Albumin 4.6 (3.5-5.2) g/dL COVID Results 08/21/22 07:59 Coronavirus 229E (PCR) Not detected SARS-CoV-2 (PCR) Not detected Coags 08/20/22 22:54 C-Reactive Protein 37.9 H Cardiac Studies: Echocardiogram 10/27/21 Echocardiogram Ultrasound 10/20/20 Transesophageal Echocardiogram 11/17/21
[2022-08-21 10:03] LABS: Adenovirus Not Detected (NOT DETECT); Chlamydia Pneumoniae Not Detected (NOT DETECT); Coronavirus 229E,HKU1,NL63,OC4 Not Detected (NOT DETECT); Human Metapneumovirus Not Detected (NOT DETECT); Human Rhinovirus/Enterovirus Not Detected (NOT DETECT); Influenza A Not Detected (NOT DETECT); Influenza A H1 Not Detected (NOT DETECT); Influenza A H1-2009 Not Detected (NOT DETECT); Influenza A H3 Not Detected (NOT DETECT); Influenza B Not Detected (NOT DETECT); Mycoplasma Pneumoniae Not Detected (NOT DETECT); Parainfluenza Virus Type 1 Not Detected (NOT DETECT); Parainfluenza Virus Type 2 Not Detected (NOT DETECT); Parainfluenza Virus Type 3 Not Detected (NOT DETECT); Parainfluenza Virus Type 4 Not Detected (NOT DETECT); Respiratory Syncytial Virus A Not Detected (NOT DETECT); Respiratory Syncytial Virus B Not Detected (NOT DETECT); SARS-COV-2 Not Detected (NOT DETECT)
--- NOTE | 2022-08-21 10:16 | PC.NURSE ---
Cardioversion Dr. Zambrano at bedside and patient remains in SVT. After discussion with patient the decision was made to cardiovert. updated. patient consented. anesthesia at bedside. time out completed with anesthesia, this nurse and provider
--- NOTE | 2022-08-21 10:21 | PC.NURSE ---
Addendum entered by Yakelin Jacobsen RN 08/21/22 11:04: 200 j used for cardioversion. Original Note: cardioversion complete converted to SR
--- NOTE | 2022-08-21 11:22 | ECG_ITS ---
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 Measurements Intervals [place] Rate: 82 P: 19 AL: 113 QRS: 9 QRSD: 94 T: -86 QT: 384 QTc: 450 Interpretive Statements SINUS RHYTHM WITH SHORT AL INTERVAL LEFT VENTRICULAR HYPERTROPHY AND ST-T CHANGE [VOLTAGE CRITERIA PLUS ST/T ABNORMALITY] Compared to ECG 08/21/2022 07:54:58 Short AL interval now present ST (T wave) deviation now present Atrial fibrillation no longer present Myocardial infarct finding no longer present Electronically Signed On 08-23-2022 18:30:49 BILINGUAL STUDENT TUTOR by Rahul Zambrano M.D. [id number]
[2022-08-21 11:27] LABS: Add Urine Culture? No; Add Urine Microscopic? YES; Bacteria Urine TRACE /hpf; Bilirubin Urine Neg (Negative); Blood Urine Neg (Negative); Glucose Urine UA 2+ (Normal); Ketones Urine 1+ (Negative); Leukocyte Esterase Urine Negative (Negative); Nitrate Urine Negative (Negative); Protein Urine 2+ (Negative); RBC Urine 0-4 /hpf (0-2); Squamous Epithelial Cell Urine 15-25 /hpf (0-5); Urine Appearance SL Hazy (CLEAR); Urine Color Yellow (Yellow); Urobilinogen Urine Norm (Negative); WBC Urine 0-4 /hpf (0-5); pH Urine 5 (5-7)
[2022-08-21] MEDS: cefTRIAXone 1,000 MG in sodium chloride 0.9% (plus) 50 ML 100 MG IV (11:38)
[2022-08-21] MEDS: sodium chloride 0.9% 250 ML 999 ML IV (11:39)
[2022-08-21] MEDS: morphine 4 mg/mL SDV 1 mL 2 MG IVP ×2 (11:47→21:16)
[2022-08-21 12:20] LABS: Troponin 5 6HR 65.24 ng/L (0-10)
[2022-08-21 12:30] LABS: Troponin 5 6HR Delta 30.24 ng/L (0-12)
[2022-08-21] MEDS: ondansetron 2 mg/ML SDV 2 mL 4 MG IVP (13:39)
[2022-08-21 14:48] LABS: Amphetamines Screen Urine Negative (Negative); Barbiturates Screen Urine Negative (Negative); Benzodiazepines Screen Urine Negative (Negative); Cocaine Screen Urine Negative (Negative); Opiate Screen Urine Positive (Negative); PCP Screen Urine Negative (Negative); THC Screen Urine Negative (Negative)
[2022-08-21] MEDS: BRIVARACETAM 25 MG 25 EACH PO (14:58)
[2022-08-21] MEDS: ALPRAZolam 0.5 mg Tablet PO ×2 (14:59→23:01)
--- NOTE | 2022-08-21 16:28 | ANE.PACU2 ---
Inpatient post-anesthesia follow up: Airway intact: Yes Vital signs: Temperature 97.5 F Pulse Rate 80 Respiratory Rate 16 Blood Pressure 162/61 Pulse Oximetry 98 Oxygen Delivery Me thod Nasal Cannula Oxygen Flow Rate 4 Fraction of Inspir ed Oxygen Hydration adequate: Yes Nausea and vomiting: No Pain level: 1 Mental status: Baseline Additional Comments: arousable, following commands
[2022-08-21] MEDS: dexmedeTOMIDine 0.9 % NaCL 400 MCG/100 ML PREMIX IV (16:48)
--- NOTE | 2022-08-21 17:44 | PM.PROC ---
Procedure Note: Pre-procedure diagnosis: Atrial fibrillation with RVR Post-procedure diagnosis: other (Normal sinus rhythm) Procedure: Cardioversion: After anesthesia team sedated patient, we performed synchronized cardioversion at 200J. Patient was successfully cardioverted back to normal sinus rhythm with shock x1. Performing Provider: Rahul Zambrano Complications: None Condition: stable Coding Level of Care Code Acute Hand Woven Carpet And Rug Mender for Heather Roman
[2022-08-21] MEDS: enoxaparin 80 mg/0.8 mL Syringe SUBCUT (21:03)
[2022-08-21] MEDS: zolpidem 5 mg Tablet PO (23:04)
[2022-08-22] VITALS (38 sets, daily range): BP systolic 96–187; BP diastolic 46–108; PULSE 61–82; RESP 13–32; TEMP 37; O2SAT 82–100
[2022-08-22] MEDS: morphine 4 mg/mL SDV 1 mL 2 MG IVP (05:00)
[2022-08-22 05:16] LABS: Basophils # 0.1 10^3/uL (0.0-0.1); Basophils % 0.8 %; Eosinophils # 0.1 10^3/uL (0.0-0.8); Eosinophils % 0.4 %; Hematocrit 39.3 % (37.0-47.0); Hemoglobin 12.4 g/dL (11.5-15.3); Lymphocytes # 5.1 10^3/uL (0.8-4.8); Lymphocytes % 38.2 %; Mean Corpuscular HGB Conc 31.6 g/dL (30.0-36.0); Mean Corpuscular Hemoglobin 27.8 pg (28.0-34.0); Mean Corpuscular Volume 88.1 fl (81-99); Mean Platelet Volume 11.2 fL (7.4-10.4); Monocytes % 7.6 %; Neutrophils # 6.97 10^3/uL (1.8-7.7); Neutrophils % 52.5 %; Nucleated Red Blood Cells % 0 %; Platelet Count 245 10^3/cmm (130-400); Red Blood Count 4.46 10^6/uL (4.1-5.3); Red Cell Distribution Width 13.6 % (12.1-15.1); White Blood Count 13.3 10^3/uL (4.0-10.0)
[2022-08-22 05:37] LABS: Alanine Aminotransferase 27 U/L (0-33); Albumin Level 3.3 g/dL (3.5-5.2); Alkaline Phosphatase 98 U/L (35-105); Anion Gap 11.5 (5-19); Aspartate Amino Transferase 34 U/L (0-32); Blood Urea Nitrogen 19 mg/dL (6-20); Carbon Dioxide 29 mmol/L (22-29); Chloride 97 mmol/L (98-107); Globulin 3.4 g/dL (1.3-4.6); Glomerular Filtration Rate 91.8 mL/min (90-130); Glucose 131 mg/dL (65-115); Osmolality Calculated 282 mOsm/kg (285-295); Potassium 3.5 mmol/L (3.5-5.1); Sodium 134 mmol/L (136-145); Total Bilirubin 0.7 mg/dL (0.15-1.2); Total Protein 6.7 g/dL (6.6-8.7)
[2022-08-22] MEDS: ondansetron 2 mg/ML SDV 2 mL 4 MG IVP (06:40)
[2022-08-22] MEDS: tizanidine 4 mg Tablet 8 MG PO (07:31)
[2022-08-22] MEDS: pantoprazole DR 40 mg Tablet PO (07:31)
[2022-08-22] MEDS: morphine ER (12 HR) 30 mg tablet PO (07:31)
[2022-08-22] MEDS: BRIVARACETAM 25 MG 25 EACH PO (07:32)
--- NOTE | 2022-08-22 07:41 | PM.PN ---
Subjective Subjective: Patient is doing well. Staying in normal sinus rhythm. Vitals/I&O/Wt Last Vital Signs Temp 98.6 F 08/21/22 20:00 Pulse 66 08/22/22 05:50 Resp 16 08/22/22 05:00 BP 123/57 08/22/22 04:15 Pulse Ox 100 08/22/22 03:30 O2 Del Method 08/21/22 16:00 O2 Flow Rate 4 08/21/22 16:00 08/21/22 08/22/22 08/22/22 22:59 06:59 14:59 Intake Total 380.263 / 1403.104 108.225 / 1511.329 Output Total 100 / 400 0 / 400 Balance 280.263 / 1003.104 108.225 / 1111.329 Weight last 48 hrs Weight 191 lb 12.8 oz Weight 195 lb Physical Exam Narrative: GENERAL: Patient is alert, awake and oriented x3. [] NECK: No jugular vein distension. [] HEENT: No cyanosis. No icterus. No pallor. [] HEART: Regular S1 and S2. No murmur, rub or gallop. [] LUNGS: Clear to auscultate bilaterally. [] ABDOMEN: Soft, nontender and nondistended. Positive bowel sounds. No guarding, rebound or tenderness. [] CENTRAL NERVOUS SYSTEM: Grossly nonfocal. [] EXTREMITIES: Lower extremities with 1+ edema bilaterally. Pulses palpable in the lower extremities, both dorsalis pedis and posterior tibial. [] Data 08/22/22 04:53 08/22/22 04:53 Micro: Microbiology 08/21/22 11:44 Blood Culture - Preliminary Blood SPECIMEN COLLECTED 08/21/22 11:38 Blood Culture - Preliminary Blood SPECIMEN COLLECTED A&P Assessment and plan (1) Atrial fibrillation with RVR: (2) Bicuspid aortic valve: (3) Labile hypertension: (4) Aortic regurgitation: Plan Patient was successfully cardioverted yesterday and is staying in normal sinus rhythm today. Started on Eliquis. Uptitrate Coreg. Thank you for involving us with care of this patient. Patient is stable to be discharged from cardiology standpoint. Please call with questions Attestations Medical Necessity Statement*: Care expected to cross 2 midnights. Coding Level of Care Code Acute Transportation Inspector for g Fwd Diagnoses Atrial fibrillation with RVR I48.91 Bicuspid aortic valve Q23.1 Labile hypertension R09.89 Aortic regurgitation I35.1
[2022-08-22] MEDS: carvedilol 12.5 mg Tablet PO (08:29)
[2022-08-22] MEDS: cefTRIAXone 1,000 MG in sodium chloride 0.9% (plus) 50 ML 100 MG IV (08:29)
[2022-08-22] MEDS: ALPRAZolam 0.5 mg Tablet PO (08:31)
[2022-08-22] MEDS: enoxaparin 80 mg/0.8 mL Syringe SUBCUT (10:06)
--- NOTE | 2022-08-22 11:15 | PM.DCS ---
Discharge Providers Date of Admission: 08/21/22 05:29 Date of Discharge: August 22, 2022 Attending Provider at Admission: Laura Dial MD Attending Provider at Discharge: Laura Dial MD Primary Care Provider: Yony Otero MD Diagnoses at Discharge Discharge Diagnosis (1) Atrial fibrillation with RVR: Status: Acute (2) Bicuspid aortic valve: Status: Acute (3) Labile hypertension: Status: Acute (4) Aortic regurgitation: Status: Acute Reason for Visit Reason for Visit: abd pain Hospital Course Hospital Course 42-year female who was admitted for management of RVR, hypertension, patient was started on esmolol drip, her heart rate was ranging up to 200 with low blood pressure hence decision was made to cardiovert her, Dr. Zambrano was consulted who did cardioversion on 08/21, her rhythm changed to sinus, her blood pressure improved. Patient's leukocytosis improving, no active source of infection identified, I will give her cefpodoxime for possible airway infection. She will get Eliquis for at least 1 month post cardioversion, for rate control I have increased the dose of Coreg. Physical Exam Narrative: Sinus rhythm Awake alert fatigued lethargic Awake and alert Nonfocal neuro exam Doing well on room air Abdomen soft Discharge Data Studies Completed and Pending Completed Studies During Hospitalization Category Date Time Status CT abdomen pelvis wo con [id number] Stat Cat Scan 08/20/22 23:[address] head wo con* [id number] Stat Cat Scan 08/20/22 23:58 Completed XR chest 1V portable [id number] Stat Exams 08/21/22 04:15 Completed Pending at discharge Category Date Time Status Blood Culture Stat Lab 08/21/22 11:44 Results Radiology Impressions Abdomen/Pelvis CT 08/20/22 23:14 IMPRESSION: 1. Negative for acute inflammatory process in the abdomen or pelvis. 2. Hepatic steatosis. 3. Cholecystectomy. 4. Left adrenal 16 mm indeterminate nodule, similar to prior exams, nonemergent adrenal imaging could further evaluate this. Head CT 08/20/22 23:58 IMPRESSION: No evidence of acute intracranial hemorrhage, mass effect, or midline shift. Chest X-Ray 08/21/22 04:15 IMPRESSION: 1. Right central venous catheter with tip overlying the right atrium. No pneumothorax. 2. Mild cardiomegaly. Laboratory Results WBC 13.3 10^3/uL (4.0-10.0) H 08/22/22 04:53 RBC 4.46 10^6/uL (4.1-5.3) 08/22/22 04:53 Hgb 12.4 g/dL (11.5-15.3) 08/22/22 04:53 Hct 39.3 % (37.0-47.0) 08/22/22 04:53 MCV 88.1 fl (81-99) 08/22/22 04:53 MCH 27.8 pg (28.0-34.0) L 08/22/22 04:53 MCHC 31.6 g/dL (30.0-36.0) 08/22/22 04:53 RDW 13.6 % (12.1-15.1) 08/22/22 04:53 Plt Count 245 10^3/cmm (130-400) 08/22/22 04:53 MPV 11.2 fL (7.4-10.4) H 08/22/22 04:53 Neut % (Auto) 52.5 % 08/22/22 04:53 Lymph % (Auto) 38.2 % 08/22/22 04:53 [place]ores % (Auto) 7.6 % 08/22/22 04:53 Eos % (Auto) 0.4 % 08/22/22 04:53 Baso % (Auto) 0.8 % 08/22/22 04:53 Neut # (Auto) 6.97 10^3/uL (1.8-7.7) 08/22/22 04:53 Lymph # (Auto) 5.1 10^3/uL (0.8-4.8) H 08/22/22 04:53 Dolores # (Auto) 1.0 10^3/uL (0.2-0.9) H 08/22/22 04:53 Eos # (Auto) 0.1 10^3/uL (0.0-0.8) 08/22/22 04:53 Baso # (Auto) 0.1 10^3/uL (0.0-0.1) 08/22/22 04:53 Nucleated RBC % (auto) 0 % 08/22/22 04:53 Nucleated RBCs # 0.0 /100WBC 08/22/22 04:53 Sodium 134 mmol/L (136-145) L 08/22/22 04:53 Potassium 3.5 mmol/L (3.5-5.1) 08/22/22 04:53 Chloride 97 mmol/L (98-107) L 08/22/22 04:53 Carbon Dioxide 29 mmol/L (22-29) 08/22/22 04:53 Anion Gap 11.5 (5-19) 08/22/22 04:53 BUN 19 mg/dL (6-20) 08/22/22 04:53 Creatinine 0.7 mg/dL (0.5-0.9) 08/22/22 04:53 GFR Calculation 91.8 mL/min (90-130) 08/22/22 04:53 Glucose 131 mg/dL (65-115) H 08/22/22 04:53 Calculated Osmolality 282 mOsm/kg (285-295) L 08/22/22 04:53 Calcium 9.0 mg/dL (8.5-10.5) 08/22/22 04:53 Total Bilirubin 0.7 mg/dL (0.15-1.2) 08/22/22 04:53 AST 34 U/L (0-32) H 08/22/22 04:53 ALT 27 U/L (0-33) 08/22/22 04:53 Alkaline Phosphatase 98 U/L (35-105) 08/22/22 04:53 Troponin T Baseline 35 ng/L (0-10) H 08/21/22 05:40 Troponin T 120 Minute 56.75 ng/L (0-10) H 08/21/22 07:43 Delta Troponin T 21.75 ABS# (0-10) H* 08/21/22 07:43 Troponin T Hi Sens 6Hr 65.24 ng/L (0-10) H 08/21/22 11:38 Troponin T Hi Sens 6Hr Delta 30.24 ng/L (0-12) H* 08/21/22 11:38 C-Reactive Protein 37.9 mg/L (0.0-4.9) H 08/20/22 22:54 Total Protein 6.7 g/dL (6.6-8.7) 08/22/22 04:53 Albumin 3.3 g/dL (3.5-5.2) L 08/22/22 04:53 Globulin 3.4 g/dL (1.3-4.6) 08/22/22 04:53 Lipase 18 U/L (13-60) 08/20/22 22:54 Procalcitonin 0.18 ng/mL (0-0.5) 08/21/22 05:40 TSH 1.25 uIU/mL (0.27-4.20) 08/21/22 05:40 Urine Color Yellow (Yellow) 08/21/22 10:58 Urine Appearance Sl hazy (CLEAR) A 08/21/22 10:58 Urine pH 5 (5-7) 08/21/22 10:58 Ur Specific [place] 1.030 (1.005-1.030) 08/21/22 10:58 Urine Protein 2+ (Negative) H 08/21/22 10:58 Urine Glucose (UA) 2+ (Normal) H 08/21/22 10:58 Urine Ketones 1+ (Negative) H 08/21/22 10:58 Urine Blood Neg (Negative) 08/21/22 10:58 Urine Nitrate Negative (Negative) 08/21/22 10:58 Urine Bilirubin Neg (Negative) 08/21/22 10:58 Urine Urobilinogen Norm mg/dL (Negative) 08/21/22 10:58 Ur Leukocyte Esterase Negative (Negative) 08/21/22 10:58 Urine RBC 0-4 /hpf (0-2) H 08/21/22 10:58 Urine WBC 0-4 /hpf (0-5) H 08/21/22 10:58 Ur Squamous Epith Cells 15-25 /hpf (0-5) H 08/21/22 10:58 Amorphous Sediment Not Reportable 08/21/22 10:58 Urine Bacteria Trace /hpf (NONE) 08/21/22 10:58 Urine Opiates Screen Positive ng/mL (Negative) H 08/21/22 10:58 Ur Barbiturates Screen Negative ng/mL (Negative) 08/21/22 10:58 Ur Phencyclidine Scrn Negative ng/mL (Negative) 08/21/22 10:58 Ur Amphetamines Screen Negative ng/mL (Negative) 08/21/22 10:58 U Benzodiazepines Scrn Negative ng/mL (Negative) 08/21/22 10:58 Urine Cocaine Screen Negative ng/mL (Negative) 08/21/22 10:58 U Marijuana (THC) Screen Negative ng/mL (Negative) 08/21/22 10:58 Coronavirus 229E (PCR) Not detected (NOT DETECT) 08/21/22 07:59 SARS-CoV-2 (PCR) Not detected (NOT DETECT) 08/21/22 07:59 Vitals Last Vital Signs Temp 98.6 F 08/21/22 20:00 Pulse 62 08/22/22 08:45 Resp 17 08/22/22 08:45 BP 115/61 08/22/22 08:30 Pulse Ox 82 L 08/22/22 08:30 O2 Del Method 08/21/22 16:00 O2 Flow Rate 4 08/21/22 16:00 Discharge Plan Discharge Patient Disposition: Home Condition: Stable Prescriptions: New Eliquis 5 mg tablet 5 mg PO BID Qty: 120 3RF cefpodoxime 200 mg tablet 200 mg PO BID Qty: 10 0RF Rx Instructions: must administer with a meal/food Continued (DME) wheelchair See Rx Instructions .Route .MEDSUPPLY Qty: 1 0RF Rx Instructions: patient needs replacement chair. (DME) STANDARD WHEELCHAIR See Rx Instructions .Route .MEDSUPPLY Qty: 1 0RF Rx Instructions: As directed furosemide 20 mg tablet 20 mg PO DAILY PRN (Reason: edema) Qty: 30 0RF tobramycin-dexamethasone [TobraDex] 0.3-0.1 % drops,suspension 2 drp ophthalmic (eye) QID 5 Days Qty: 2.5 0RF (DME) wheelchair See Rx Instructions .Route .MEDSUPPLY Qty: 1 0RF Rx Instructions: As directed ondansetron HCl 4 mg tablet 4 mg PO Q8H PRN (Reason: nausea and vomiting) Qty: 20 2RF Briviact 25 mg tablet 25 mg PO DAILY@08 Qty: 60 0RF pantoprazole 40 mg tablet,delayed release (DR/EC) 40 mg PO BID@08,20 Qty: 90 3RF zolpidem 5 mg tablet 5 mg PO BEDTIME PRN (Reason: Sleep) Qty: 30 3RF tizanidine 4 mg tablet 8 mg PO TID PRN (Reason: muscle spasticity) 30 Days Qty: 180 3RF morphine 30 mg tablet extended release 30 mg PO Q12H 30 Days Qty: 60 0RF Rx Instructions: at 0800/2000 Zenpep 40,000-126,000- 168,000 unit capsule,delayed release(DR/EC) 1 cap PO TID Qty: 90 8RF Rx Instructions: administer with meals and/or snacks diphenhydramine HCl [Benadryl] 25 mg Capsule 25 mg PO Q6H PRN (Reason: Allergy Symptoms) polyethylene glycol 3350 [Miralax] 17 gram/dose Powder 17 g PO QAM PRN (Reason: Constipation) prochlorperazine maleate 10 mg tablet 10 mg PO Q8H PRN (Reason: Nausea And Vomiting) isosorbide mononitrate 30 mg Tablet Extended Release 24 Hr 15 mg PO DAILY spironolactone 25 mg Tablet 25 mg PO DAILY hydralazine 50 mg Tablet 50 mg PO Q8H PRN (Reason: Blood Pressure) Changed carvedilol 12.5 mg tablet 25 mg PO BID Qty: 60 2RF Discharge Orders: Discharge Order (Routine); Ordered 08/22/22 Ordered By: Elisha Edward Referrals: Yony Otero MD [Primary Care Provider] - Rahul Zambrano M.D [Physician] - 1 month Patient Instructions: Opioid Safety Discharge Attestations Time Spent in Discharge Care*: less than 30 min Status at Discharge: Cognitive status at discharge: cognitively intact, Behavioral status at discharge: cooperative, Quality Metrics Clinical Quality Measures [ No reported AMI, CVA or VTE this stay] Coding Level of Care Code Acute Chg FW DC note Diagnoses Atrial fibrillation with RVR I48.91 Bicuspid aortic valve Q23.1 Labile hypertension R09.89 Aortic regurgitation I35.1
--- NOTE | 2022-08-22 11:54 | PC.NURSE ---
Central line removed. All discharge instructions given to patient and verbalized understanding. Presciptions sent to preferred pharmacy.
--- NOTE | 2022-08-22 12:09 | PC.NURSE ---
Patient exited facility at 1200 via W/C with staff and to MOB exit. All paperwork and patient belongings given to patient with discharge including home meds.
== END 2022-08-22 12:00 | disposition home or self-care (01) | DRG 308 ==
LOC: ER 08-21 05:36 → ICU 08-21 05:43
PROVIDERS: Emergency Medicine; Internal Medicine; Admitting Provider Student in an Organized Health Care Education/Training Program; Emergency Provider Emergency Medicine; PCP Internal Medicine; Visit Provider Student in an Organized Health Care Education/Training Program
DX: I48.91 Unspecified atrial fibrillation (principal); R09.2 Respiratory arrest; K86.1 Other chronic pancreatitis; Q23.1 Congenital insufficiency of aortic valve; G40.109 Localization-related (focal) (partial) symptomatic epilepsy and epileptic syndromes with simple partial seizures, not intractable, without status epilepticus; I10 Essential (primary) hypertension; I95.9 Hypotension, unspecified; I42.1 Obstructive hypertrophic cardiomyopathy; D72.829 Elevated white blood cell count, unspecified; K21.9 Gastro-esophageal reflux disease without esophagitis; E11.9 Type 2 diabetes mellitus without complications; Z79.891 Long term (current) use of opiate analgesic; Z90.49 Acquired absence of other specified parts of digestive tract
CPT/HCPCS: 36415; 36556; 36592; 70450; 71045; 74176; 80053; 80306; 81001; 83690; 84145; 84443; 84484; 85025; 86140; 87040; 87635; 93005; 96365; 96366; 96372; 96375; 99285; J0131; J0282; J0696; J1170; J1630; J1650; J2270; J2310; J2405; J2704; J2765; J3490; J7050; J7060; Q0162

== ENCOUNTER → 2022-09-03 15:03 | Outpatient (BNVA) | payer MEDICARE, MEDICAID, SELFPAY | PROVIDERS: Visit Provider Family Medicine | DX: M79.604 Pain in right leg (principal); M79.605 Pain in left leg; G89.29 Other chronic pain; I48.91 Unspecified atrial fibrillation; K86.1 Other chronic pancreatitis; F41.9 Anxiety disorder, unspecified; I42.1 Obstructive hypertrophic cardiomyopathy; I35.1 Nonrheumatic aortic (valve) insufficiency; I10 Essential (primary) hypertension; G40.909 Epilepsy, unspecified, not intractable, without status epilepticus; G47.00 Insomnia, unspecified | CPT/HCPCS: 80053; 83036 ==

== ENCOUNTER 2022-12-25 18:30 | Emergency (ER) | payer MEDICARE, MEDICAID, SELFPAY ==
[2022-12-25] VITALS (9 sets, daily range): BP systolic 154–219; BP diastolic 86–158; PULSE 81–95; RESP 16–24; TEMP 36.4; O2SAT 94–95; BMI 37.8
--- NOTE | 2022-12-25 18:39 | XRR_ITS ---
PROCEDURE INFORMATION: Exam: XR Abdomen Exam date and time: 12/25/2022 7:54 PM Age: 42 years old Clinical indication: Abdominal pain; Prior surgery; Surgery type: Elza; Umbilical; D&c's; Additional info: Constipation TECHNIQUE: Imaging protocol: Radiologic exam of the abdomen. Views: Frontal supine view of the abdomen. 1 View. COMPARISON: CT abdomen pelvis wo con [id number] 08/21/2022 1:07 AM FINDINGS: Gastrointestinal tract: Nonspecific bowel gas pattern without bowel distention. Gas and stool within the colon, with moderate stool content. Organs: Surgical clips in the right upper quadrant suggest prior cholecystectomy. Bones/joints: No acute osseous abnormality. Other findings: No abnormal calcifications are seen. XR/XR KUB [id number] IMPRESSION: Nonspecific nonobstructive bowel gas pattern with moderate stool content. Postsurgical clips in the right upper quadrant.
--- NOTE | 2022-12-25 19:56 | ED_ITS ---
Documented by User: MOHIT Rocha 12/25/22 23:47 HPI - GI Bleed General: Chief complaint: GI Bleed Stated complaint: n/v, constipation, weakness Time Seen by Provider: 12/25/22 18:57 History of Present Illness: Patient is a 42-year-old female comes to the ED with abdominal pain. Patient has a history of aortic regurgitation, type 2 diabetes, hypertension. Symptoms started about 5 days ago. She was constipated and went to see her PCP on December 22 and he gave he sent her home with some lactulose and MiraLAX to help with bowel movements. She has been using those medications and today her symptoms were worse. Endorses having an episode of diarrhea today that she described the stool looking like black coffee grounds. She started developing nausea and vomiting last night and is continued into today. She went back to her PCP today and since she failed treatment he told her to come here to the ED for further evaluation. Her abdominal pain is rated a 10 out of 10 and is located in the upper abdomen bilaterally. Denies any fevers, dysuria or hematuria. Past surgical history of cholecystectomy. Associated symptoms: Reports abdominal pain, nausea and vomiting; Denies chills, fever(s), headache(s) or rash Review of Systems Const: Denies: fever(s), chills or fatigue Eyes: Denies: change in vision or eye discomfort ENMT: Denies: throat pain, odynophagia, nasal discharge or nasal congestion Card: Denies: chest pain, palpitations, edema, swelling of feet/ankles, dyspnea on exertion or orthopnea Resp: Denies: dyspnea, productive cough or non-productive cough GI: Reports: abdominal pain, nausea, vomiting, constipation and melena; Denies: diarrhea or hematochezia : Denies: flank pain, dysuria or hematuria Musc: Denies: neck pain, back pain or extremity swelling Skin/Breast: Denies: rash or new lesions Neuro: Denies: headache(s), numbness in extremities or weakness in extremities [facility] ED PFSH: Medical History Adrenal mass Aortic regurgitation Atrial fibrillation with RVR Bicuspid aortic valve Chronic pain of lower extremity, bilateral Chronic pancreatitis 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 Diabetes Epilepsy Essential (primary) hypertension Exocrine pancreatic insufficiency GI bleed Labile hypertension Primary osteoarthritis Surgical History History of bilateral knee replacement History of cholecystectomy History of D&C History of foot surgery closing wedge History of knee replacement procedure of right knee done twice 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 Family History Grandmother Cancer Lung disease Stroke Mother Lung disease Other A-fib CHF (congestive heart failure) Social History (Updated 12/22/22 @ 13:19 by Jessenia Fabian LPN) Smoking and tobacco status: never smoked Alcohol intake: never Household members: spouse Housing: House Marital status: Current occupational status: disabled Physical Exam Const: COMMON NORMALS: patient oriented x3 and alert HENMT: COMMON NORMALS: normocephalic HEAD & SCALP: normocephalic MOUTH: Normal oral and palatal mucosa present THROAT: posterior oropharynx normal and uvula midline Neck/C-Spine: COMMON NORMALS: supple GENERAL: Yes normal visual inspection Resp: COMMON NORMALS: normal respiratory effort, No retractions, No use of accessory muscles and clear to auscultation bilaterally AUSCULTATION: clear to auscultation bilaterally Cardio: COMMON NORMALS: regular rate, regular rhythm, S1 normal heart sound present, S2 normal heart sound present, No gallops present (Cardio), No clicks present (Cardio), No murmurs present (Cardio) and Peripheral pulses 2+ throughout RATE: regular rate RHYTHM: regular rhythm HEART SOUNDS: S1 normal heart sound present and S2 normal heart sound present PERIPHERAL PULSE S: Peripheral pulses 2+ throughout GI: COMMON NORMALS: Normal to inspection, nondistended, normoactive bowel sounds present, Soft to palpation and no masses PALPATION: Yes Soft to palpation and Yes Tenderness to palpation present (GI) Details: RUQ : COMMON NORMALS: Yes no CVA tenderness BLADDER/KIDNEY EXAM: Yes no CVA tenderness Back/Pelvis: COMMON NORMALS: no CVA tenderness Extremity: COMMON NORMALS: normal to inspection Neuro: COMMON NORMALS: patient oriented x3 SENSORIUM/ORIENTATION: Yes alert GAIT: Yes Normal gait present Skin: GENERAL SKIN EXAM: dry skin Course Vital Signs: Vital signs: Vital Signs Temperature 97.6 F 12/25/22 18:31 Pulse Rate 99 12/26/22 00:00 Respiratory Rate 16 12/26/22 00:05 Blood Pressure 175/89 12/26/22 00:45 Pulse Oximetry 93 12/26/22 00:45 Oxygen Delivery Me thod 12/25/22 18:31 MDM - GI Bleed Medical Decision Making Patient is a 42-year-old female comes to the ED with abdominal pain. Patient has a history of aortic regurgitation, type 2 diabetes, hypertension. Symptoms started about 5 days ago. She was constipated and went to see her PCP on December 22 and he gave he sent her home with some lactulose and MiraLAX to help with bow el movements. She has been using those medications and today her symptoms were worse. Endorses having an episode of diarrhea today that she described the stool looking like black coffee grounds. She started developing nausea and vomiting last night and is continued into today. She went back to her PCP today and since she failed treatment he told her to come here to the ED for further evaluation. Vitals?219/139 and the rest of her vitals are stable. Upon exam patient has generalized right upper quadrant tenderness but rest of exam is benign. White blood cell count of 15.1 but the rest of CBC and CMP are unremarkable. KUB showed nonspecific nonobstructive bowel gas pattern with moderate stool content. CT of the abdomen pelvis showed some mildly prominent small bowel nonspecific but may be seen with gastroenteritis. She also has an incidental finding of a left adrenal nodule that was seen on previous CT abdomen images and is stable and unchanged. I told patient about left adrenal gland findings and she was aware of that from previous imaging and was told that needs further outpatient evaluation. Patient was given pain meds and nausea meds here in the ED she was also given a dose of clonidine to help with her blood pressure. She refused any enema here in the ED. Patient care handed off to Dr. Alejo to monitor blood pressures and manage dispo plan. Lab Data I reviewed the patient's lab results. 12/25/22 20:33 12/25/22 20:33 Radiology Impressions KUB X-Ray 12/25/22 18:39 IMPRESSION: Nonspecific nonobstructive bowel gas pattern with moderate stool content. Postsurgical clips in the right upper quadrant. Abdomen/Pelvis CT 12/25/22 21:46 IMPRESSION: 1. There are few loops of mildly prominent small bowel , nonspecific but may be seen with gastroenteritis. 2. Fatty infiltration of the liver. 3. Indeterminate left adrenal nodule. Consider further evaluation with outpatient pre and postcontrast dedicated adrenal CT or MRI. COMMENTS: Consistent with the [employer]'s Incidental Findings Committee white paper (J Am Tammy Radiol 2018): Any incidental renal lesion less than 1 cm or classified as too small to characterize, or any incidental cystic renal lesion characterized as simple-appearing, is likely benign. No follow-up imaging is recommended for these lesions per consensus recommendations based on imaging criteria. Laboratory Results WBC 15.1 10^3/uL (4.0-10.0) H 12/25/22 20:33 RBC 5.69 10^6/uL (4.1-5.3) H 12/25/22 20:33 Hgb 15.9 g/dL (11.5-15.3) H 12/25/22 20:33 Hct 48.4 % (37.0-47.0) H 12/25/22 20: MCV 85.1 fl (81-99) 12/25/22 20: MCH 27.9 pg (28.0-34.0) L 12/25/22 20:33 MCHC 32.9 g/dL (30.0-36.0) 12/25/22 20:33 RDW 13.7 % (12.1-15.1) 12/25/22 20:33 Plt Count 299 10^3/cmm (130-400) 12/25/22 20:33 MPV 11.2 fL (7.4-10.4) H 12/25/22 20:33 Neut % (Auto) 63.8 % 12/25/22 20:33 Lymph % (Auto) 29.6 % 12/25/22 20:33 [place] % (Auto) 4.4 % 12/25/22 20:33 Eos % (Auto) 0.4 % 12/25/22 20:33 Baso % (Auto) 0.7 % 12/25/22 20:33 Neut # (Auto) 9.64 10^3/uL (1.8-7.7) H 12/25/22 20:33 Lymph # (Auto) 4.5 10^3/uL (0.8-4.8) 12/25/22 20:33 [place] # (Auto) 0.7 10^3/uL (0.2-0.9) 12/25/22 20:33 Eos # (Auto) 0.1 10^3/uL (0.0-0.8) 12/25/22 20: Baso # (Auto) 0.1 10^3/uL (0.0-0.1) 12/25/22 20:33 Nucleated RBC % (auto) 0.1 % 12/25/22: Nucleated RBCs # 0.0 /100WBC 12/25/22 20:33 Sodium 137 mmol/L (136-145) 12/25/22 20: Potassium 4.0 mmol/L (3.5-5.1) 12/25/22: Chloride 93 mmol/L (98-107) L 12/25/22 20: Carbon Dioxide 25 mmol/L (22-29) 12/25/22 20: Anion Gap 23.0 (5-19) H 12/25/22 20:33 BUN 10 mg/dL (6-20) 12/25/22 20: Creatinine 0.8 mg/dL (0.5-0.9) 12/25/22 20:33 GFR Calculation 78.7 mL/min (90-130) L 12/25/22: Glucose 130 mg/dL (65-115) H 12/25/22 20:33 Calculated Osmolality 285 mOsm/kg (285-295) 12/25/22: Calcium 10.3 mg/dL (8.5-10.5) 12/25/22 20:33 Total Bilirubin 0.5 mg/dL (0.15-1.2) 12/25/22 20:33 AST 92 U/L (0-32) H 12/25/22 20:33 ALT 57 U/L (0-33) H 12/25/22 20:33 Alkaline Phosphatase 126 U/L (35-105) H 12/25/22 20:33 Total Protein 8.9 g/dL (6.6-8.7) H 12/25/22 20:33 Albumin 4.9 g/dL (3.5-5.2) 12/25/22 20:33 Globulin 4.0 g/dL (1.3-4.6) 12/25/22 20:33 Lipase 26 U/L (13-60) 12/25/22 20:33 HCG, Qual Negative (Negative) 12/25/22 20:33 Urine Color Yellow (Yellow) 12/25/22 23:03 Urine Appearance Hazy (CLEAR) A 12/25/22 23:03 Urine pH 5 (5-7) 12/25/22 23:03 Ur Specific Bradford 1.015 (1.005-1.030) 12/25/22 23:03 Urine Protein 1+ (Negative) H 12/25/22 23:03 Urine Glucose (UA) Norm (Normal) 12/25/22 23:03 Urine Ketones 1+ (Negative) H 12/25/22 23:03 Urine Blood Neg (Negative) 12/25/22 23:03 Urine Nitrate Negative (Negative) 12/25/22 23:03 Urine Bilirubin Neg (Negative) 12/25/22 23:03 Urine Urobilinogen Neg mg/dL (Negative) 12/25/22 23:03 Ur Leukocyte Esterase Negative (Negative) 12/25/22 23:03 Urine RBC 0-4 /hpf (0-2) H 12/25/22 23:03 Urine WBC 0-4 /hpf (0-5) H 12/25/22 23:03 Ur Squamous Epith Cells 15-25 /hpf (0-5) H 12/25/22 23:03 Amorphous Sediment Not Reportable 12/25/22 23:03 Urine Bacteria Trace /hpf (NONE) 12/25/22 23:03 Hyaline Casts 0-4 /lpf H 12/25/22 23:03 Urine Mucus 1+ /hpf 12/25/22 23:03 H. pylori IgG Antibody Negative (Negative) 12/25/22 20:33 Discharge Plan Discharge Patient Disposition: Home Clinical Impression: Hypertension, Constipation Condition: Stable Prescriptions: New GaviLyte-G 236-22.74-6.74 -5.86 gram recon soln 20 ml PO Q1M Qty: 4000 0RF Rx Instructions: until fecal effluent is clear No Action (DME) STANDARD WHEELCHAIR See Rx Instructions .Route .MEDSUPPLY Qty: 1 0RF Rx Instructions: As directed (DME) blood-glucose meter [OneTouch Ultra2 Meter] Misc See Rx Instructions .Route Qty: 1 0RF Rx Instructions: As directed insulin lispro 100 unit/mL insulin pen 5 unit SUBCUT TID 30 Days Qty: 15 0RF Rx Instructions: follow sliding scale (DME) lancets [OneTouch UltraSoft Lancets] Misc See Rx Instructions .Route Qty: 200 2RF Rx Instructions: As directed cephalexin 500 mg capsule 500 mg PO BID 7 Days Qty: 14 0RF furosemide 20 mg tablet 20 mg PO DAILY PRN (Reason: edema) Qty: 30 0RF potassium chloride 20 mEq tablet extended release 20 meq PO DAILY Qty: 90 0RF lactulose 10 gram/15 mL (15 mL) solution 10 g PO DAILY PRN (Reason: constipation) Qty: 600 0RF benzonatate 200 mg capsule 200 mg PO BID PRN (Reason: cough) Qty: 30 0RF tizanidine 4 mg tablet 8 mg PO TID PRN (Reason: muscle spasticity) 30 Days Qty: 180 3RF zolpidem 5 mg tablet 5 mg PO BEDTIME PRN (Reason: Sleep) Qty: 30 3RF insulin glargine [Lantus Solostar U-100 Insulin] 100 unit/mL (3 mL) insulin pen 30 unit SUBCUT BID ondansetron HCl 4 mg tablet 4 mg PO Q8H PRN (Reason: nausea and vomiting) Qty: 20 2RF Zenpep 40,000-126,000- 168,000 unit capsule,delayed release(DR/EC) 1 cap PO TID Qty: 90 8RF Rx Instructions: administer with meals and/or snacks (DME) OneTouch Ultra Test Strip See Rx Instructions .ROUTE .MEDSUPPLY Qty: 100 1RF Rx Instructions: As directed Briviact 25 mg tablet 25 mg PO DAILY Qty: 60 3RF morphine 30 mg tablet extended release 30 mg PO Q12H 30 Days Qty: 60 0RF Rx Instructions: at 0800/2000 pantoprazole 40 mg tablet,delayed release (DR/EC) 40 mg PO BID@08,20 Qty: 90 3RF docusate sodium 283 mg/5 mL enema 283 mg [place] DAILY Qty: 150 1RF diphenhydramine HCl [Benadryl] 25 mg Capsule 25 mg PO Q6H PRN (Reason: Allergy Symptoms) polyethylene glycol 3350 [Miralax] 17 gram/dose Powder 17 g PO QAM PRN (Reason: Constipation) prochlorperazine maleate 10 mg tablet 10 mg PO Q8H PRN (Reason: Nausea And Vomiting) isosorbide mononitrate 30 mg Tablet Extended Release 24 Hr 15 mg PO DAILY spironolactone 25 mg Tablet 25 mg PO DAILY hydralazine 50 mg Tablet 50 mg PO Q8H PRN (Reason: Blood Pressure) Eliquis 5 mg tablet 5 mg PO BID Qty: 120 3RF carvedilol 12.5 mg tablet 25 mg PO BID Qty: 60 2RF Discharge Orders: Discharge ED (Routine); Ordered 12/26/22 Ordered By: Vishnu Alejo Referrals: Galo Perez MD [Primary Care Provider] - 1-3 days Patient Instructions: Constipation (ED), Hypertension (ED) Activity Restrictions/Additional Instructions: Monitor your blood pressure twice daily on your home medications. Report numbers to your physician, in case medication changes need to be made. Monitor your stool output. If you are not putting out an appropriate amount of stool over the next 48 hours, fill the prescription you were given, and take it. You should stay close to a bathroom for the next 24 hours after using this medication. Return for fever greater than 100, vomiting liquids or medications despite treatment, other concerning symptoms. 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 Diabetes Epilepsy Essential (primary) hypertension Exocrine pancreatic insufficiency GI bleed Labile hypertension Primary osteoarthritis Surgical History History of bilateral knee replacement History of cholecystectomy History of D&C History of foot surgery closing wedge History of knee replacement procedure of right knee done twice 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 Family History Grandmother Cancer Lung disease Stroke Mother Lung disease Other A-fib CHF (congestive heart failure) Social History (Updated 12/22/22 @ 13:19 by Jessenia Fabian LPN) Smoking and tobacco status: never smoked Alcohol intake: never Household members: spouse Housing: House Marital status: Current occupational status: disabled Course Vital Signs: Vital signs: Vital Signs Temperature 97.6 F 12/25/22 18:31 Pulse Rate 99 12/26/22 00:00 Respiratory Rate 16 12/26/22 00:05 Blood Pressure 175/89 12/26/22 00:45 Pulse Oximetry 93 12/26/22 00:45 Oxygen Delivery Me thod 12/25/22 18:31 MDM - GI Bleed Medical Decision Making Patient is a 42-year-old female comes to the ED with abdominal pain. Patient has a history of aortic regurgitation, type 2 diabetes, hypertension. Symptoms started about 5 days ago. She was constipated and went to see her PCP on December 22 and he gave he sent her home with some lactulose and MiraLAX to help with bowel movements. She has been using those medications and today her symptoms were worse. Endorses having an episode of diarrhea today that she described the stool looking like black coffee grounds. She started developing nausea and vomiting last night and is continued into today. She went back to her PCP today and since she failed treatment he told her to come here to the ED for further evaluation. Vitals?219/139 and the rest of her vitals are stable. Upon exam patient has generalized right upper quadrant tenderness but rest of exam is benign. White blood cell count of 15.1 but the rest of CBC and CMP are unremarkable. KUB showed nonspecific nonobstructive bowel gas pattern with m oderate stool content. CT of the abdomen pelvis showed some mildly prominent small bowel nonspecific but may be seen with gastroenteritis. She also has an incidental finding of a left adrenal nodule that was seen on previous CT abdomen images and is stable and unchanged. I told patient about left adrenal gland findings and she was aware of that from previous imaging and was told that needs further outpatient evaluation. Patient was given pain meds and nausea meds here in the ED she was also given a dose of clonidine to help with her blood pressure. She refused any enema here in the ED. Patient care handed off to Dr. Alejo to monitor blood pressures and manage dispo plan. This patient was originally seen by Mr. Aaron PA-C.? I agree with his history, evaluation, and treatment. Lab Data 12/25/22 20:33 12/25/22 20:33 Radiology Impressions KUB X-Ray 12/25/22 18:39 IMPRESSION: Nonspecific nonobstructive bowel gas pattern with moderate stool content. Postsurgical clips in the right upper quadrant. Abdomen/Pelvis CT 12/25/22 21:46 IMPRESSION: 1. There are few loops of mildly prominent small bowel , nonspecific but may be seen with gastroenteritis. 2. Fatty infiltration of the liver. 3. Indeterminate left adrenal nodule. Consider further evaluation with outpatient pre and postcontrast dedicated adrenal CT or MRI. COMMENTS: Consistent with the [employer] [employer]'s Incidental Findings Committee white paper (J Am Tammy Radiol 2018): Any incidental renal lesion less than 1 cm or classified as too small to characterize, or any incidental cystic renal lesion characterized as simple-appearing, is likely benign. No follow-up imaging is recommended for these lesions per consensus recommendations based on imaging criteria. Laboratory Results WBC 15.1 10^3/uL (4.0-10.0) H 12/25/22 20:33 RBC 5.69 10^6/uL (4.1-5.3) H 12/25/22 20:33 Hgb 15.9 g/dL (11.5-15.3) H 12/25/22 20:33 Hct 48.4 % (37.0-47.0) H 12/25/22 20:33 MCV 85.1 fl (81-99) 12/25/22 20:33 MCH 27.9 pg (28.0-34.0) L 12/25/22 20:33 MCHC 32.9 g/dL (30.0-36.0) 12/25/22 20:33 RDW 13.7 % (12.1-15.1) 12/25/22 20:33 Plt Count 299 10^3/cmm (130-400) 12/25/22 20: MPV 11.2 fL (7.4-10.4) H 12/25/22 20: Neut % (Auto) 63.8 % 12/25/22 20: Lymph % (Auto) 29.6 % 12/25/22 20: [place] % (Auto) 4.4 % 12/25/22 20: Eos % (Auto) 0.4 % 12/25/22 20: Baso % (Auto) 0.7 % 12/25/22 20: Neut # (Auto) 9.64 10^3/uL (1.8-7.7) H 12/25/22 20: Lymph # (Auto) 4.5 10^3/uL (0.8-4.8) 12/25/22 20: [place] # (Auto) 0.7 10^3/uL (0.2-0.9) 12/25/22 20: Eos # (Auto) 0.1 10^3/uL (0.0-0.8) 12/25/22 20: Baso # (Auto) 0.1 10^3/uL (0.0-0.1) 12/25/22 20: Nucleated RBC % (auto) 0.1 % 12/25/22: Nucleated RBCs # 0.0 /100WBC 12/25/22 20: Sodium 137 mmol/L (136-145) 12/25/22 20: Potassium 4.0 mmol/L (3.5-5.1) 12/25/22 20: Chloride 93 mmol/L (98-107) L 12/25/22 20: Carbon Dioxide 25 mmol/L (22-29) 12/25/22 20: Anion Gap 23.0 (5-19) H 12/25/22 20: BUN 10 mg/dL (6-20) 12/25/22 20: Creatinine 0.8 mg/dL (0.5-0.9) 12/25/22 20: GFR Calculation 78.7 mL/min (90-130) L 12/25/22 20: Glucose 130 mg/dL (65-115) H 12/25/22 20:33 Calculated Osmolality 285 mOsm/kg (285-295) 12/25/22 20: Calcium 10.3 mg/dL (8.5-10.5) 12/25/22 20:33 Total Bilirubin 0.5 mg/dL (0.15-1.2) 12/25/22 20:33 AST 92 U/L (0-32) H 12/25/22 20: ALT 57 U/L (0-33) H 12/25/22 20:33 Alkaline Phosphatase 126 U/L (35-105) H 12/25/22 20: Total Protein 8.9 g/dL (6.6-8.7) H 12/25/22 20: Albumin 4.9 g/dL (3.5-5.2) 12/25/22 20: Globulin 4.0 g/dL (1.3-4.6) 12/25/22 20: Lipase 26 U/L (13-60) 12/25/22 20: HCG, Qual Negative (Negative) 12/25/22 20: Urine Color Yellow (Yellow) 12/25/22 23:03 Urine Appearance Hazy (CLEAR) A 12/25/22 23:03 Urine pH 5 (5-7) 12/25/22 23:03 Ur Specific Bradford 1.015 (1.005-1.030) 12/25/22 23:03 Urine Protein 1+ (Negative) H 12/25/22 23:03 Urine Glucose (UA) Norm (Normal) 12/25/22 23:03 Urine Ketones 1+ (Negative) H 12/25/22 23:03 Urine Blood Neg (Negative) 12/25/22 23:03 Urine Nitrate Negative (Negative) 12/25/22 23:03 Urine Bilirubin Neg (Negative) 12/25/22 23:03 Urine Urobilinogen Neg mg/dL (Negative) 12/25/22 23:03 Ur Leukocyte Esterase Negative (Negative) 12/25/22 23:03 Urine RBC 0-4 /hpf (0-2) H 12/25/22 23:03 Urine WBC 0-4 /hpf (0-5) H 12/25/22 23:03 Ur Squamous Epith Cells 15-25 /hpf (0-5) H 12/25/22 23:03 Amorphous Sediment Not Reportable 12/25/22 23:03 Urine Bacteria Trace /hpf (NONE) 12/25/22 23:03 Hyaline Casts 0-4 /lpf H 12/25/22 23:03 Urine Mucus 1+ /hpf 12/25/22 23:03 H. pylori IgG Antibody Negative (Negative) 12/25/22 20:33 Discharge Plan Discharge Patient Disposition: Home Clinical Impression: Hypertension, Constipation Condition: Stable Prescriptions: New GaviLyte-G 236-22.74-6.74 -5.86 gram recon soln 20 ml PO Q1M Qty: 4000 0RF Rx Instructions: until fecal effluent is clear No Action (DME) STANDARD WHEELCHAIR See Rx Instructions .Route .MEDSUPPLY Qty: 1 0RF Rx Instructions: As directed (DME) blood-glucose meter [OneTouch Ultra2 Meter] Misc See Rx Instructions .Route Qty: 1 0RF Rx Instructions: As directed insulin lispro 100 unit/mL insulin pen 5 unit SUBCUT TID 30 Days Qty: 15 0RF Rx Instructions: follow sliding scale (DME) lancets [OneTouch UltraSoft Lancets] [facility] [place] See Rx Instructions .Route Qty: 200 2RF Rx Instructions: As directed cephalexin 500 mg capsule 500 mg PO BID 7 Days Qty: 14 0RF furosemide 20 mg tablet 20 mg PO DAILY PRN (Reason: edema) Qty: 30 0RF potassium chloride 20 mEq tablet extended release 20 meq PO DAILY Qty: 90 0RF lactulose 10 gram/15 mL (15 mL) solution 10 g PO DAILY PRN (Reason: constipation) Qty: 600 0RF benzonatate 200 mg capsule 200 mg PO BID PRN (Reason: cough) Qty: 30 0RF tizanidine 4 mg tablet 8 mg PO TID PRN (Reason: muscle spasticity) 30 Days Qty: 180 3RF zolpidem 5 mg tablet 5 mg PO BEDTIME PRN (Reason: Sleep) Qty: 30 3RF insulin glargine [Lantus Solostar U-100 Insulin] 100 unit/mL (3 mL) insulin pen 30 unit SUBCUT BID ondansetron HCl 4 mg tablet 4 mg PO Q8H PRN (Reason: nausea and vomiting) Qty: 20 2RF Zenpep 40,000-126,000- 168,000 unit capsule,delayed release(DR/EC) 1 cap PO TID Qty: 90 8RF Rx Instructions: administer with meals and/or snacks (DME) OneTouch Ultra Test Strip See Rx Instructions .ROUTE .MEDSUPPLY Qty: 100 1RF Rx Instructions: As directed Briviact 25 mg tablet 25 mg PO DAILY Qty: 60 3RF morphine 30 mg tablet extended release 30 mg PO Q12H 30 Days Qty: 60 0RF Rx Instructions: at 0800/2000 pantoprazole 40 mg tablet,delayed release (DR/EC) 40 mg PO BID@08,20 Qty: 90 3RF docusate sodium 283 mg/5 mL enema 283 mg [place] DAILY Qty: 150 1RF diphenhydramine HCl [Benadryl] 25 mg Capsule 25 mg PO Q6H PRN (Reason: Allergy Symptoms) polyethylene glycol 3350 [Miralax] 17 gram/dose Powder 17 g PO QAM PRN (Reason: Constipation) prochlorperazine maleate 10 mg tablet 10 mg PO Q8H PRN (Reason: Nausea And Vomiting) isosorbide mononitrate 30 mg Tablet Extended Release 24 Hr 15 mg PO DAILY spironolactone 25 mg Tablet 25 mg PO DAILY hydralazine 50 mg Tablet 50 mg PO Q8H PRN (Reason: Blood Pressure) Eliquis 5 mg tablet 5 mg PO BID Qty: 120 3RF carvedilol 12.5 mg tablet 25 mg PO BID Qty: 60 2RF Discharge Orders: Discharge ED (Routine); Ordered 12/26/22 Ordered By: Vishnu Alejo Referrals: Galo Perez MD [Primary Care Provider] - 1-3 days Patient Instructions: Constipation (ED), Hypertension (ED) Activity Restrictions/Additional Instructions: Monitor your blood pressure twice daily on your home medications. Report numbers to your physician, in case medication changes need to be made. Monitor your stool output. If you are not putting out an appropriate amount of stool over the next 48 hours, fill the prescription you were given, and take it. You should stay close to a bathroom for the next 24 hours after using this medication. Return for fever greater than 100, vomiting liquids or medications despite treatment, other concerning symptoms. Coding Level of Care Code ED Allergist/Immunologist Physician for Heather Roman
[2022-12-25 20:41] LABS: Basophils # 0.1 10^3/uL (0.0-0.1); Basophils % 0.7 %; Eosinophils # 0.1 10^3/uL (0.0-0.8); Eosinophils % 0.4 %; Hematocrit 48.4 % (37.0-47.0); Hemoglobin 15.9 g/dL (11.5-15.3); Lymphocytes # 4.5 10^3/uL (0.8-4.8); Lymphocytes % 29.6 %; Mean Corpuscular HGB Conc 32.9 g/dL (30.0-36.0); Mean Corpuscular Hemoglobin 27.9 pg (28.0-34.0); Mean Corpuscular Volume 85.1 fl (81-99); Mean Platelet Volume 11.2 fL (7.4-10.4); Monocytes # 0.7 10^3/uL (0.2-0.9); Monocytes % 4.4 %; Neutrophils # 9.64 10^3/uL (1.8-7.7); Neutrophils % 63.8 %; Nucleated Red Blood Cells % 0.1 %; Platelet Count 299 10^3/cmm (130-400); Red Blood Count 5.69 10^6/uL (4.1-5.3); Red Cell Distribution Width 13.7 % (12.1-15.1); White Blood Count 15.1 10^3/uL (4.0-10.0)
[2022-12-25] MEDS: sodium chloride 0.9% 1,000 ML 999 ML IV (20:46)
[2022-12-25] MEDS: ondansetron 2 mg/ML SDV 2 mL 4 MG IVP (20:46)
[2022-12-25] MEDS: morphine 4 mg/mL SDV 1 mL IVP (20:47)
[2022-12-25 20:57] LABS: HCG, Serum Qual Negative (Negative)
[2022-12-25 21:05] LABS: Alanine Aminotransferase 57 U/L (0-33); Albumin Level 4.9 g/dL (3.5-5.2); Alkaline Phosphatase 126 U/L (35-105); Aspartate Amino Transferase 92 U/L (0-32); Blood Urea Nitrogen 10 mg/dL (6-20); Calcium 10.3 mg/dL (8.5-10.5); Carbon Dioxide 25 mmol/L (22-29); Chloride 93 mmol/L (98-107); Glomerular Filtration Rate 78.7 mL/min (90-130); Glucose 130 mg/dL (65-115); Lipase 26 U/L (13-60); Osmolality Calculated 285 mOsm/kg (285-295); Sodium 137 mmol/L (136-145); Total Bilirubin 0.5 mg/dL (0.15-1.2); Total Protein 8.9 g/dL (6.6-8.7)
[2022-12-25 21:11] LABS: H. Pylori IgG Antibody Negative (Negative)
--- NOTE | 2022-12-25 21:46 | CTR_ITS ---
PROCEDURE INFORMATION: Exam: CT Abdomen And Pelvis Without Contrast Exam date and time: 12/25/2022 10:09 PM Age: 42 years old Clinical indication: Abdominal pain; Generalized; Prior surgery; Surgery type: Elza; Umbilical; D&c's; Additional info: Abdominal pain, constipation, nausea vomiting TECHNIQUE: Imaging protocol: Computed tomography of the abdomen and pelvis without contrast. Radiation optimization: All CT scans at this facility use at least one of these dose optimization techniques: automated exposure control; mA and/or kV adjustment per patient size (includes targeted exams where dose is matched to clinical indication); or iterative reconstruction. REPORTING DATA: Count of CT and Cardiac NM exams in prior 12 months: This patient has received 4 known CTs and 0 known cardiac nuclear medicine studies in the 12 months prior to the current study. COMPARISON: CT abdomen pelvis wo con [id number] 08/21/2022 1:07 AM RADIATION DOSE METRICS: Total DLP (mGy-cm): 886.94 FINDINGS: Lungs: The lung bases are clear. No effusion Liver: There is fatty infiltration of the liver. Gallbladder and bile ducts: There has been a cholecystectomy. Pancreas: Normal. No ductal dilation. Spleen: Normal. No splenomegaly. Adrenal glands: Stable 2.1 cm indeterminate left adrenal nodule. Kidneys and ureters: There is a subcentimeter low-attenuation lesion/lesions, of the right kidney which are too small to accurately characterize by CT. Stomach and bowel: There are few loops of mildly prominent small bowel , nonspecific but may be seen with gastroenteritis. Appendix: No evidence of appendicitis. Intraperitoneal space: Unremarkable. No free air. No significant fluid collection. Vasculature: Unremarkable. No abdominal aortic aneurysm. Lymph nodes: Unremarkable. No enlarged lymph nodes. Urinary bladder: Unremarkable as visualized. Reproductive: Unremarkable as visualized. Bones/joints: Unremarkable. No acute fracture. Soft tissues: Unremarkable. CT/CT abdomen pelvis wo con [id number] IMPRESSION: 1. There are few loops of mildly prominent small bowel , nonspecific but may be seen with gastroenteritis. 2. Fatty infiltration of the liver. 3. Indeterminate left adrenal nodule. Consider further evaluation with outpatient pre and postcontrast dedicated adrenal CT or MRI. COMMENTS: Consistent with the [employer]'s Incidental Findings Committee white paper (J Am Tammy Radiol 2018): Any incidental renal lesion less than 1 cm or classified as too small to characterize, or any incidental cystic renal lesion characterized as simple-appearing, is likely benign. No follow-up imaging is recommended for these lesions per consensus recommendations based on imaging criteria.
[2022-12-25] MEDS: promethazine 25 mg/mL SDV 1 mL IM (22:00)
[2022-12-25] MEDS: HYDROmorphone 1 mg/mL INJ 1 mL IM (22:01)
[2022-12-25] MEDS: cloNIDine 0.1 mg Tablet 0.2 MG PO (23:09)
[2022-12-25 23:41] LABS: Add Urine Microscopic? YES; Bilirubin Urine Neg (Negative); Blood Urine Neg (Negative); Glucose Urine UA Norm (Normal); Ketones Urine 1+ (Negative); Leukocyte Esterase Urine Negative (Negative); Nitrate Urine Negative (Negative); Protein Urine 1+ (Negative); Specific Gravity, Urine 1.015 (1.005-1.030); Urine Appearance Hazy (CLEAR); Urine Color Yellow (Yellow); Urobilinogen Urine Neg (Negative); pH Urine 5 (5-7)
[2022-12-25 23:44] LABS: RBC Urine 0-4 /hpf (0-2); WBC Urine 0-4 /hpf (0-5)
[2022-12-25 23:45] LABS: Add Urine Culture? No; Bacteria Urine TRACE /hpf; Hyaline Casts Urine 0-4 /lpf; Mucus Urine 1+ /hpf; Squamous Epithelial Cell Urine 15-25 /hpf (0-5)
[2022-12-26] VITALS: BP 261/136; PULSE 99; RESP 16; O2SAT 91
[2022-12-26] MEDS: hyDRALAzine 25 mg Tablet 50 MG PO (00:04)
[2022-12-26] MEDS: carvedilol 25 mg Tablet PO (00:04)
[2022-12-26 00:05] VITALS: RESP 16
[2022-12-26] MEDS: nitroglycerin 0.4 mg sublingual Tablet SUBLINGUAL (00:05)
[2022-12-26] MEDS: metoclopramide 10 mg Tablet PO (00:05)
[2022-12-26] MEDS: morphine 4 mg/mL SDV 1 mL IM (00:05)
[2022-12-26 00:45] VITALS: BP 175/89; O2SAT 93
== END 2022-12-26 00:55 | disposition home or self-care (01) ==
PROVIDERS: Physician Assistant; Emergency Provider Emergency Medicine; PCP Family Medicine
DX: K59.00 Constipation, unspecified (principal); I10 Essential (primary) hypertension; E11.9 Type 2 diabetes mellitus without complications; I48.91 Unspecified atrial fibrillation; Z79.4 Long term (current) use of insulin; Z79.01 Long term (current) use of anticoagulants
CPT/HCPCS: 74018; 74176; 80053; 81001; 83690; 84703; 85025; 86677; 96372; 96374; 96375; 99285; J1170; J2270; J2405; J2550; J7030; J8597

== ENCOUNTER 2022-12-29 19:10 | Emergency (ER) | payer MEDICARE, MEDICAID, SELFPAY ==
[2022-12-29 19:18] VITALS: BP 189/71; PULSE 90; RESP 17; TEMP 37.6; O2SAT 95; BMI 37.7
--- NOTE | 2022-12-29 19:20 | XRR_ITS ---
PROCEDURE INFORMATION: Exam: XR Abdomen Exam date and time: 12/29/2022 7:26 PM Age: 42 years old Clinical indication: Bloating; Additional info: Constipation 1 week, pain worse on right side TECHNIQUE: Imaging protocol: Radiologic exam of the abdomen. Views: Frontal supine view of the abdomen. 1 View. COMPARISON: CT abdomen pelvis con [id number] 12/25/2022 10:09 PM FINDINGS: Gastrointestinal tract: No evidence for bowel obstruction or perforation. Intraperitoneal space: No free intraperitoneal air. Organs: Stable findings consistent with a previous cholecystectomy with surgical clips in the right upper quadrant. No organomegaly. Bones/joints: Unremarkable. XR/XR KUB [id number] IMPRESSION: 1. No evidence for bowel obstruction or perforation. 2. Incidental/nonacute findings are listed in the report.
== END 2022-12-29 20:17 | disposition left against medical advice (07) ==
PROVIDERS: Emergency Provider Family Medicine; PCP Family Medicine
DX: Z53.21 Procedure and treatment not carried out due to patient leaving prior to being seen by health care provider (principal)
CPT/HCPCS: 74018

== ENCOUNTER 2023-01-01 19:22 | Inpatient (IN) | payer MEDICARE, MEDICAID, SELFPAY ==
[2023-01-01 19:50] VITALS: BP 161/79; PULSE 75; RESP 20; TEMP 36.8; O2SAT 96; BMI 37.7
[2023-01-01 20:03] VITALS: BP 226/105; PULSE 87; RESP 20; O2SAT 96
[2023-01-01 20:33] LABS: Glucose Point of Care 147 mg/dL (70-110)
--- NOTE | 2023-01-01 20:56 | CTR_ITS ---
PROCEDURE INFORMATION: Exam: CT Abdomen And Pelvis With Contrast Exam date and time: 01/01/2023 10:18 PM Age: 42 years old Clinical indication: Abdominal pain; Generalized TECHNIQUE: Imaging protocol: Computed tomography of the abdomen and pelvis with contrast. Radiation optimization: All CT scans at this facility use at least one of these dose optimization techniques: automated exposure control; mA and/or kV adjustment per patient size (includes targeted exams where dose is matched to clinical indication); or iterative reconstruction. Contrast material: OMNI 350; Contrast volume: 100 ml; Contrast route: INTRAVENOUS (IV); REPORTING DATA: Count of CT and Cardiac NM exams in prior 12 months: This patient has received 5 known CTs and 0 known cardiac nuclear medicine studies in the 12 months prior to the current study. COMPARISON: CT abdomen pelvis wo con [id number] 12/25/2022 10:09 PM RADIATION DOSE METRICS: Total DLP (mGy-cm): 864.97 FINDINGS: Liver: There is hypoattenuation the hepatic parenchyma compatible with fatty infiltration. Gallbladder and bile ducts: Status post cholecystectomy. Pancreas: Normal. No ductal dilation. Spleen: A calcifications seen within the spleen compatible with a benign granuloma. Adrenal glands: There is a 1.9 x 2.0 cm low-attenuation mildly lobulated left adrenal nodule present. This may represent benign adenoma. Kidneys and ureters: Normal. No hydronephrosis. Stomach and bowel: Unremarkable. No obstruction. No mucosal thickening. Appendix: The appendix is visualized and is normal in configuration. Intraperitoneal space: Unremarkable. No free air. No significant fluid collection. Vasculature: Unremarkable. No abdominal aortic aneurysm. Lymph nodes: Unremarkable. No enlarged lymph nodes. Urinary bladder: Unremarkable as visualized. Reproductive: There is a 2.6 x 2.3 x 3.0 cm hypoattenuation cystic mass seen associated with the right ovary compatible with a benign or functional ovarian cyst. Bones/joints: Unremarkable. No acute fracture. Soft tissues: Unremarkable. CT/CT abdomen pelvis w con* [id number] IMPRESSION: 1. Fatty infiltration of the liver 2. Low-attenuation mildly lobulated 2 cm left adrenal nodularity likely represents a benign adrenal adenoma. No further workup needed. 3. Hypoattenuation cystic mass associated with the right ovary measuring up to 3 cm likely represents a benign or functional ovarian cyst. No further workup needed. 4. Normal appendix 5. No evidence for ureteral obstruction
[2023-01-01] MEDS: HYDROmorphone 1 mg/mL INJ 1 mL IVP ×2 (21:25→22:39)
[2023-01-01] MEDS: ondansetron 2 mg/ML SDV 2 mL 4 MG IVP ×2 (21:25→22:39)
[2023-01-01 21:28] LABS: Basophils # 0.1 10^3/uL (0.0-0.1); Basophils % 0.6 %; Eosinophils # 0.1 10^3/uL (0.0-0.8); Eosinophils % 0.3 %; Hemoglobin 14.9 g/dL (11.5-15.3); Lymphocytes # 4.3 10^3/uL (0.8-4.8); Lymphocytes % 30.2 %; Mean Corpuscular HGB Conc 31.7 g/dL (30.0-36.0); Mean Corpuscular Hemoglobin 28.2 pg (28.0-34.0); Mean Corpuscular Volume 88.8 fl (81-99); Mean Platelet Volume 11.3 fL (7.4-10.4); Monocytes # 0.8 10^3/uL (0.2-0.9); Monocytes % 5.2 %; Neutrophils # 9.04 10^3/uL (1.8-7.7); Neutrophils % 62.9 %; Nucleated Red Blood Cells % 0 %; Platelet Count 276 10^3/cmm (130-400); Red Blood Count 5.29 10^6/uL (4.1-5.3); Red Cell Distribution Width 14.2 % (12.1-15.1); White Blood Count 14.4 10^3/uL (4.0-10.0)
--- NOTE | 2023-01-01 21:30 | ECG_ITS ---
[facility] Test Date: 2023-01-01 Pat Name: Eleanor Ragland Department: Room: Gender: Female [employer] Man: : 1980 Requested By: Vishnu Perez Order Number: [id number] Reading MD: Fam Aguilar Measurements Intervals [place] Rate: 81 P: 86 PA: 115 QRS: 5 QRSD: 88 T: 124 QT: 375 QTc: 436 Interpretive Statements SINUS RHYTHM WITH SHORT PA INTERVAL ANTERIOR MYOCARDIAL INFARCTION , PROBABLY OLD [40+ ms Q WAVE AND/OR ST/T ABNORMALITY IN V3/V4] POSSIBLE INFERIOR MYOCARDIAL INFARCTION , PROBABLY OLD [30 ms Q WAVE IN II/aVF] Compared to ECG 08/21/2022 10:22:45 Myocardial infarct finding now present Left ventricular hypertrophy no longer present ST (T wave) deviation no longer present Electronically Signed On 01-02-2023 19:00:56 CDT by Fam Aguilar [id number]
[2023-01-01 21:46] LABS: Alanine Aminotransferase 36 U/L (0-33); Albumin Level 4.2 g/dL (3.5-5.2); Alkaline Phosphatase 111 U/L (35-105); Anion Gap 13.4 (5-19); Aspartate Amino Transferase 41 U/L (0-32); Blood Urea Nitrogen 7 mg/dL (6-20); C Reactive Protein 18.1 mg/L (0.0-4.9); Calcium 9.1 mg/dL (8.5-10.5); Carbon Dioxide 24 mmol/L (22-29); Chloride 101 mmol/L (98-107); Globulin 3.6 g/dL (1.3-4.6); Glomerular Filtration Rate 109.6 mL/min (90-130); Glucose 135 mg/dL (65-115); Lipase 25 U/L (13-60); Osmolality Calculated 278 mOsm/kg (285-295); Potassium 4.4 mmol/L (3.5-5.1); Sodium 134 mmol/L (136-145); Total Bilirubin 0.5 mg/dL (0.15-1.2); Total Protein 7.8 g/dL (6.6-8.7)
--- NOTE | 2023-01-01 21:50 | ED_ITS ---
HPI - Abdominal Pain General: Chief Complaint: Abdominal Pain Stated Complaint: abd pain upper right, n/v Time Seen by Provider: 01/01/23 20:29 History of Present Illness: 42-year-old female well-known to the ER service. She has a history of uncontrolled hypertension. She also has problems with chronic abdominal pain. She has been seen once here in 1 time at an outside facility in the last week for similar complaints. She also saw her PCP last week. She states she has vomited multiple times today, she is not making much urine, and she is having continued right upper quadrant pain/right flank pain. She was told at the outside facility that her pancreas was inflamed . She has used multiple medications for constipation, and is having some loose nonformed stools now. No blood. She says that her blood pressure has been erratic because she has not been able to hold down her blood pressure medication MD elicited complaint: abdominal pain and flank pain Pertinent past history: constipation and other Onset (ago): day(s) Pain Consistency: constant Location: RUQ and R flank Severity: severe Quality: stabbing and aching Radiation: none Migration to: no migration Associated Symptoms: Reports coffee ground emesis, constipation, GI cramping, diarrhea, nausea and vomiting; Denies chills, dyspepsia, fever(s), hematuria and melena Review of Systems Const: Denies: fever(s) or chills ENMT: Denies: throat pain Card: Denies: chest pain Resp: Denies: dyspnea GI: Reports: nausea, vomiting, coffee ground emesis, diarrhea, constipation and GI cramping; Denies: melena : Reports: flank pain; Denies: hematuria [facility] ED PFSH: Medical History Adrenal mass Aortic regurgitation Atrial fibrillation with RVR Bicuspid aortic valve Chronic pain of lower extremity, bilateral Chronic pancreatitis 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 Diabetes Epilepsy Essential (primary) hypertension Exocrine pancreatic insufficiency GI bleed Labile hypertension Primary osteoarthritis Surgical History History of bilateral knee replacement History of cholecystectomy History of D&C History of foot surgery closing wedge History of knee replacement procedure of right knee done twice 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 Family History Grandmother Cancer Lung disease Stroke Mother Lung disease Other A-fib CHF (congestive heart failure) Social History Smoking and tobacco status: never smoked Alcohol intake: never Household members: spouse Housing: House Marital status: Current occupational status: disabled Physical Exam Const: COMMON NORMALS: no acute distress GENERAL APPEARANCE: cooperative and ill appearing (mildly) HENMT: COMMON NORMALS: normocephalic, atraumatic and Normal external nose present HEAD & SCALP: normocephalic and atraumatic FACE & SINUS: normal facial exam and face symmetric NOSE: Normal external nose present Eye: COMMON NORMALS: Equal, round and reactive pupils present and EOMs intact bilaterally PUPIL: Yes Equal, round and reactive pupils present Neck/C-Spine: GENERAL: Yes trachea midline Chest: CHEST: Yes Symmetrical chest wall rise Resp: COMMON NORMALS: normal respiratory effort, No retractions, No use of accessory muscles and clear to auscultation bilaterally AUSCULTATION: clear to auscultation bilaterally Cardio: COMMON NORMALS: regular rate and regular rhythm RATE: regular rate RHYTHM: regular rhythm GI: COMMON NORMALS: Normal to inspection, nondistended, normoactive bowel sounds present and Soft to palpation PALPATION: Yes Soft to palpation, Yes Tenderness to palpation present (GI) Details: LUQ and Yes Guarding due to pal pation present (GI) : BLADDER/KIDNEY EXAM: Yes CVA tenderness on the right Back/Pelvis: GENERAL BACK: Yes CVA tenderness Extremity: COMMON NORMALS: no pedal edema Neuro: KELLY COMA SCALE: document GCS findings [place] coma scale eye opening: Spontaneous Kelly coma scale verbal response: Orientated [place] coma scale motor response: Obey commands [place] coma scale total score: 15 SENSORY EXAM: Yes extremities (intact) Psych: COMMON NORMALS: speech normal SPEECH: Yes normal speech Skin: COMMON NORMALS: no rashes or lesions noted GENERAL SKIN EXAM: no rashes or lesions noted Course Vital Signs: Vital signs: Vital Signs Temperature 99.0 F 01/02/23 03:58 Pulse Rate 81 01/02/23 16:06 Respiratory Rate 16 01/02/23 16:16 Blood Pressure 180/155 01/02/23 11:56 Pulse Oximetry 96 01/02/23 16:16 Oxygen Delivery Me thod 01/02/23 12:00 MDM - Abdominal Pain Medical Decision Making Patient with a history of uncontrolled hypertension, and abdominal pain. She presents with uncontrolled blood pressure is as high as 230 systolic. She complains of a right upper quadrant/ right flank pain. She's tender on exam. She has had multiple doses of pain medication, antiemetics, and antihypertensives. She is vomiting, and has vomited her blood pressure medicine. CBC shows a white blood cell count of 14. BMP is not remarkable. Liver enzymes are not remarkable. CRP is only minimally elevated. Urinalysis is negative. CT does not show A cause of her right flank and abdominal pain. She will require admission for intractabl e vomiting, belly pain, and uncontrolled hypertension. Hospitalist has seen the patient in the ER. Lab Data 01/01/23 21:20 01/01/23 21:20 Labs/Radiology: Radiology Impressions Abdomen/Pelvis CT 01/01/23 20:56 IMPRESSION: 1. Fatty infiltration of the liver 2. Low-attenuation mildly lobulated 2 cm left adrenal nodularity likely represents a benign adrenal adenoma. No further workup needed. 3. Hypoattenuation cystic mass associated with the right ovary measuring up to 3 cm likely represents a benign or functional ovarian cyst. No further workup needed. 4. Normal appendix 5. No evidence for ureteral obstruction Laboratory Results WBC 14.4 10^3/uL (4.0-10.0) H 01/01/23 21:20 RBC 5.29 10^6/uL (4.1-5.3) 01/01/23 21:20 Hgb 14.9 g/dL (11.5-15.3) 01/01/23 21:20 Hct 47.0 % (37.0-47.0) 01/01/23 21:20 MCV 88.8 fl (81-99) 01/01/23 21:20 MCH 28.2 pg (28.0-34.0) 01/01/23 21:20 MCHC 31.7 g/dL (30.0-36.0) 01/01/23 21:20 RDW 14.2 % (12.1-15.1) 01/01/23 21:20 Plt Count 276 10^3/cmm (130-400) 01/01/23 21:20 MPV 11.3 fL (7.4-10.4) H 01/01/23 21:20 Neut % (Auto) 62.9 % 01/01/23 21:20 Lymph % (Auto) 30.2 % 01/01/23 21:20 Ocean % (Auto) 5.2 % 01/01/23 21:20 Eos % (Auto) 0.3 % 01/01/23 21:20 Baso % (Auto) 0.6 % 01/01/23 21:20 Neut # (Auto) 9.04 10^3/uL (1.8-7.7) H 01/01/23 21:20 Lymph # (Auto) 4.3 10^3/uL (0.8-4.8) 01/01/23 21:20 Ocean # (Auto) 0.8 10^3/uL (0.2-0.9) 01/01/23 21:20 Eos # (Auto) 0.1 10^3/uL (0.0-0.8) 01/01/23 21:20 Baso # (Auto) 0.1 10^3/uL (0.0-0.1) 01/01/23 21:20 Nucleated RBC % (auto) 0 % 01/01/23 21:20 Nucleated RBCs # 0.0 /100WBC 01/01/23 21:20 Sodium 134 mmol/L (136-145) L 01/01/23 21:20 Potassium 4.4 mmol/L (3.5-5.1) 01/01/23 21:20 Chloride 101 mmol/L (98-107) 01/01/23 21:20 Carbon Dioxide 24 mmol/L (22-29) 01/01/23 21:20 Anion Gap 13.4 (5-19) 01/01/23 21:20 BUN 7 mg/dL (6-20) 01/01/23 21:20 Creatinine 0.6 mg/dL (0.5-0.9) 01/01/23 21:20 GFR Calculation 109.6 mL/min (90-130) 01/01/23 21:20 Glucose 135 mg/dL (65-115) H 01/01/23 21:20 POC Glucose 147 mg/dL (70-110) H 01/01/23 20:28 Calculated Osmolality 278 mOsm/kg (285-295) L 01/01/23 21:20 Lactate 1.0 mmol/L (0.5-2.2) 01/01/23 21:20 Calcium 9.1 mg/dL (8.5-10.5) 01/01/23 21:20 Magnesium 1.9 mg/dL (1.7-2.3) 01/01/23 21:20 Total Bilirubin 0.5 mg/dL (0.15-1.2) 01/01/23 21:20 AST 41 U/L (0-32) H 01/01/23 21:20 ALT 36 U/L (0-33) H 01/01/23 21:20 Alkaline Phosphatase 111 U/L (35-105) H 01/01/23 21:20 C-Reactive Protein 18.1 mg/L (0.0-4.9) H 01/01/23 21:20 Total Protein 7.8 g/dL (6.6-8.7) 01/01/23 21:20 Albumin 4.2 g/dL (3.5-5.2) 01/01/23 21:20 Globulin 3.6 g/dL (1.3-4.6) 01/01/23 21:20 Lipase 25 U/L (13-60) 01/01/23 21:20 TSH 0.74 uIU/mL (0.27-4.20) 01/01/23 21:20 HCG, Qual Negative (Negative) 01/01/23 21:20 Random Cortisol 19.54 ug/dL (2.47-19.5) H 01/01/23 21:20 Urine Color Yellow (Yellow) 01/01/23 22:52 Urine Appearance Clear (CLEAR) 01/01/23 22:52 Urine pH 7 (5-7) 01/01/23 22:52 Ur Specific [place] 1.005 (1.005-1.030) 01/01/23 22:52 Urine Protein 1+ (Negative) H 01/01/23 22:52 Urine Glucose (UA) 2+ (Normal) H 01/01/23 22:52 Urine Ketones 2+ (Negative) H 01/01/23 22:52 Urine Blood 2+ (Negative) H 01/01/23 22:52 Urine Nitrate Negative (Negative) 01/01/23 22:52 Urine Bilirubin 1+ (Negative) H 01/01/23 22:52 Urine Urobilinogen 4 mg/dL (Negative) H 01/01/23 22:52 Ur Leukocyte Esterase Negative (Negative) 01/01/23 22:52 Urine RBC 0-4 /hpf (0-2) H 01/01/23 22:52 Urine WBC 0-4 /hpf (0-5) H 01/01/23 22:52 Ur Squamous Epith Cells 0-4 /hpf (0-5) H 01/01/23 22:52 Amorphous Sediment Not Reportable 01/01/23 22:52 Urine Bacteria Trace /hpf (NONE) 01/01/23 22:52 Discharge Plan Discharge Patient Disposition: Admitted As Inpatient Admit Provider: Robyn Tee Clinical Impression: Hypertensive urgency Condition: Stable Coding Level of Care Code ED Donation Specialist for Heather Roman
[2023-01-01 22:12] LABS: HCG, Serum Qual Negative (Negative)
[2023-01-01] MEDS: carvedilol 25 mg Tablet PO (22:22)
[2023-01-01] MEDS: hyDRALAzine 25 mg Tablet 50 MG PO (22:22)
[2023-01-01] MEDS: spironolactone 25 mg Tablet PO (22:22)
[2023-01-01] MEDS: iohexol 350 mg/mL 500 mL Btl (per mL) IV (22:22)
[2023-01-01 22:33] VITALS: BP 205/153; PULSE 91; RESP 18; O2SAT 91
[2023-01-01 23:22] LABS: Glucose Urine UA 2+ (Normal); Protein Urine 1+ (Negative); Specific Gravity, Urine 1.005 (1.005-1.030); Urine Appearance Clear (CLEAR); Urine Color Yellow (Yellow); pH Urine 7 (5-7)
[2023-01-01 23:23] LABS: Add Urine Culture? No; Add Urine Microscopic? YES; Bacteria Urine TRACE /hpf; Bilirubin Urine 1+ (Negative); Blood Urine 2+ (Negative); Ketones Urine 2+ (Negative); Leukocyte Esterase Urine Negative (Negative); Nitrate Urine Negative (Negative); RBC Urine 0-4 /hpf (0-2); Squamous Epithelial Cell Urine 0-4 /hpf (0-5); Urobilinogen Urine 4 mg/dL (Negative); WBC Urine 0-4 /hpf (0-5)
[2023-01-02] VITALS (19 sets, daily range): BP systolic 113–226; BP diastolic 52–155; PULSE 70–91; RESP 14–95; TEMP 36.6–37.2; O2SAT 91–96
[2023-01-02] MEDS: labetalol 5 mg/mL SDV 20mL 20 MG IVP (00:18)
[2023-01-02] MEDS: haloperidol inj 5 mg/mL INJ 1 mL IVP (00:36)
[2023-01-02] MEDS: diphenhydrAMINE 50 mg/mL SDV 1mL 25 MG IVP (01:25)
--- NOTE | 2023-01-02 02:02 | PM.HP ---
Providers/Chief Complaint Primary Care Provider: Galo Perez MD Chief Complaint: abd pain upper right, n/v History of Present Illness 42-year-old female with past medical history of chronic pancreatitis, concern for pheochromocytoma, history of adrenal nodule being followed by endocrinology at [facility], chronic lower extremity pain, diabetes, epilepsy, hypertension, labile hypertension, A-fib with RVR presented to the hospital with complaint of vomiting multiple times a day not making much urine and having right upper quadrant pain and right flank pain. She was seen at an outside facility and was told her pancreas was inflamed. She is also constipated and has used multiple medications for constipation and now having some loose stools. Her blood pressure has been elevated since he is unable to keep her blood pressure medication down due to vomiting and nausea. She saw her primary care doctor last week mainly for constipation and her bowel regimen was optimized. She also complained of nausea vomiting abdominal pain at that visit. Patient was directed to go to the ER. CT abdomen pelvis was done which showed mildly prominent small bowel nonspecific but may be seen with gastroenteritis. There was also incidental finding of left adrenal nodule that was seen on previous CT abdomen images. Patient refused an enema at that time. Ultimately she was discharged. Blood pressure arrival 161/79, respiratory 20, pulse 75, temperature 98.3. WBC 14.4, hemoglobin 14.9, platelets 276, sodium 134, potassium 4.4, creatinine 0.6, lactate 1.2, AST 41, ALT 36, C-reactive protein 18.1. Of note at previous admission in August 2022 patient was admitted for A-fib RVR and was cardioverted by cardiology. Patient given Coreg 25 mg x 1, Dilaudid 1 mg x 2, labetalol 20 IV push x1. Zofran 4 mg IV push x2, spironolactone 25x1, Benadryl 25 IV push x1, hydralazine 50x1, Haldol 5 mg x 1.She says she has not taken her medications for last 3 days secondary to n/v and is unable to keep anything down. Medications/Allergies Home Medications Medication Instructions Recorded Confirmed Last Taken Type STANDARD WHEELCHAIR #1 ea 05/29/21 12/25/22 Unknown Rx diphenhydramine HCl 25 mg capsule 25 mg PO Q6H PRN Allergy Symptoms 10/26/21 12/25/22 Unknown History (Benadryl) polyethylene glycol 3350 17 17 g PO QAM PRN Constipation 10/26/21 12/25/22 Unknown History gram/dose oral powder (Miralax) prochlorperazine maleate 10 mg 10 mg PO Q8H PRN Nausea And 06/08/22 12/25/22 06/07/22 History tablet Vomiting rscags-ajoflsxi-krajdty 1 cap PO TID #90 caps 08/16/22 12/25/22 Unknown Rx 40,000-126,000-168,000 unit capsule, delay rel (Zenpep) hydralazine 50 mg tablet 50 mg PO Q8H PRN Blood Pressure 08/21/22 12/25/22 Unknown History isosorbide mononitrate 30 mg 15 mg PO DAILY 08/21/22 12/25/22 Unknown History tablet,extended release 24 hr spironolactone 25 mg tablet 25 mg PO DAILY 08/21/22 12/25/22 Unknown History apixaban 5 mg tablet (Eliquis) 5 mg PO BID #120 tabs 08/22/22 12/25/22 Unknown Rx carvedilol 12.5 mg tablet 25 mg PO BID #60 tabs 08/22/22 12/25/22 06/07/22 Rx blood sugar diagnostic (OneTouch #100 ea 09/06/22 12/25/22 Unknown Rx Ultra Test strips) brivaracetam 25 mg tablet 25 mg PO DAILY #60 tabs 09/28/22 12/25/22 Unknown Rx (Briviact) tizanidine 4 mg tablet 8 mg PO TID PRN muscle spasticity 11/19/22 12/25/22 Unknown Rx 30 days #180 tabs zolpidem 5 mg tablet 5 mg PO BEDTIME PRN Sleep #30 tabs 11/19/22 12/25/22 Unknown Rx insulin glargine 100 unit/mL (3 30 unit SUBCUT BID 11/24/22 12/25/22 Unknown History mL) subcutaneous pen (Lantus Solostar U-100 Insulin) morphine 30 mg tablet,extended 30 mg PO Q12H 1 month #60 tabs 11/30/22 12/25/22 Unknown Rx release blood-glucose meter (OneTouch #1 ea 12/08/22 12/25/22 Unknown Rx Ultra2 Meter) insulin lispro 100 unit/mL 5 unit (0.05 mL) SUBCUT TID 30 12/08/22 12/25/22 Unknown Rx subcutaneous pen days #15 mL lancets (OneTouch UltraSoft #200 ea 12/08/22 12/25/22 Unknown Rx Lancets) pantoprazole 40 mg tablet,delayed 40 mg PO BID@08,20 #90 tabs 12/08/22 12/25/22 Unknown Rx release furosemide 20 mg tablet 20 mg PO DAILY PRN edema #30 tabs 12/22/22 12/25/22 Unknown Rx lactulose 10 gram/15 mL (15 mL) 10 g (15 mL) PO DAILY PRN 12/22/22 12/25/22 Unknown Rx oral solution constipation #600 mL potassium chloride 20 mEq 20 meq PO DAILY #90 tabs 12/22/22 12/25/22 Unknown Rx tablet,extended release docusate sodium 283 mg/5 mL enema 283 mg (5 mL) LA DAILY #150 mL 12/24/22 12/25/22 Unknown Rx ondansetron HCl 4 mg tablet 4 mg PO Q8H PRN nausea and 12/30/22 Unknown Rx vomiting #20 tabs Allergies Allergy/AdvReac Type Severity Reaction Status Date / Time canagliflozin [From Invokana] Allergy Severe abdominal Verified 12/25/22 17:39 pain enalaprilat Allergy Severe tongue Verified 12/25/22 17:39 swelling aspirin Allergy Unknown Verified 12/25/22 17:39 ketorolac [From Toradol] Allergy Unknown Verified 12/25/22 17:39 nicardipine Allergy ALGY-Difficulty Verified 12/25/22 17:39 Breathing tramadol [From Ultram] Allergy Unknown Verified 12/25/22 17:39 PFSH Acute PFSH: Medical History Adrenal mass Aortic regurgitation Atrial fibrillation with RVR Bicuspid aortic valve Chronic pain of lower extremity, bilateral Chronic pancreatitis 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 Diabetes Epilepsy Essential (primary) hypertension Exocrine pancreatic insufficiency GI bleed Labile hypertension Primary osteoarthritis Surgical History History of bilateral knee replacement History of cholecystectomy History of D&C History of foot surgery closing wedge History of knee replacement procedure of right knee done twice 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 Family History Grandmother Cancer Lung disease Stroke Mother Lung disease Other A-fib CHF (congestive heart failure) Social History Smoking and tobacco status: never smoked Alcohol intake: never Household members: spouse Housing: House Marital status: Current occupational status: disabled Vitals/I&O/Wt Last Vital Signs Temp 98.3 F 01/01/23 19:50 Pulse 83 01/02/23 01:00 Resp 18 01/02/23 01:00 BP 161/70 01/02/23 01:00 Pulse Ox 92 01/02/23 01:00 O2 Del Method 01/02/23 00:00 Weight last 48 hrs Weight 87.543 kg Physical Exam Narrative: General: Sedated patient seen laying in bed HEENT: Normocephalic, atraumatic, EOMI, breathing comfortably on room air, no acute resp distress Cardio: Regular rate rhythm, normal S1-S2 Respiratory: Clear to auscultation b/l. no wheezes or ronchi GI: Abdomen soft, Non distended, does not grimace to palpation. Extremities: no edema, visible skin intact Data 01/01/23 21:20 01/01/23 21:20 A&P Assessment and plan (1) Hypertension: (2) Constipation: (3) Nausea: (4) DM2 (diabetes mellitus, type 2): (5) Anxiety: (6) Atrial fibrillation: (7) Chronic pancreatitis: Qualifiers: Pancreatitis type: other Qualified Code(s): K86.1 - Other chronic pancreatitis (8) Hypertensive urgency: Plan #Hypertensive Urgency #Nausea, vomiting, abdominal pain #Hx of Constipation #Chronic pancreatitis history #Diabetes mellitus, insulin-dependent #Uncontrolled hypertension, labile blood pressures #History of adrenal nodule being followed by endocrinology at [facility], question of pheochromocytoma? #History of atrial fibrillation, rate controlled at this time ? Scopolamine patch, Zofran and Reglan alternating for nausea ? Continue lactulose 15 g twice daily scheduled ? Lipase protease amylase capsule 3 times daily to be continued ? Continue Protonix 40 twice daily, tizanidine 8 mg 3 times daily ? Continue Ambien 5 mg at bedtime ? Moderate dose intensity sliding scale insulin at this time. We will hold Lantus ? Continue Eliquis 5 twice daily ? Continue brivaracetam 25 mg daily ? Continue on spironalactone 25 daily, coreg 25 BID daily, hydralazine 50 TID pRN (home meds), imdur 15 daily. ? Patient to be encouraged to follow-up with endocrinology as an outpatient after discharge. - CT abdomen pelvis shows:1. ? Fatty infiltration of the liver 2. ? Low-attenuation mildly lobulated 2 cm left adrenal nodularity likely represents a benign adrenal adenoma. No further workup needed. 3. ? Hypoattenuation cystic mass associated with the right ovary measuring up to 3 cm likely represents a benign or functional ovarian cyst. No further workup needed. 4. ? Normal appendix 5. ? No evidence for ureteral obstruction - Reviewed EKG, no acute ischemic changes noted. - Clear liquids, advance as tolerated - Check BP q4 Hours Full code SCDs, Eliquis on board should suffice for DVT prophylaxis Attestations Medical Necessity Statement*: Care expected to cross 2 midnights. Other Coding Information Focused coding review requested Diagnoses Hypertension I10 Constipation K59.00 Nausea R11.0 DM2 (diabetes mellitus, type 2) E11.9 Anxiety F41.9 Atrial fibrillation I48.91 Chronic pancreatitis K86.1 Pancreatitis type: other Hypertensive urgency I16.0
[2023-01-02] MEDS: HYDROmorphone 1 mg/mL INJ 1 mL IVP (02:34)
[2023-01-02] MEDS: scopolamine 1.5 Patch 1 PATCH TRANSDERMA (03:02)
[2023-01-02] MEDS: tizanidine 4 mg Tablet 8 MG PO ×3 (03:36→20:55)
[2023-01-02] MEDS: morphine ER (12 HR) 30 mg tablet PO ×2 (03:36→16:09)
[2023-01-02] MEDS: sodium chloride 0.9% 1,000 ML 125 ML IV ×3 (03:38→19:43)
[2023-01-02] MEDS: heparin 5,000 unit/mL INJ 1 mL 5000 UNIT SUBCUT ×2 (03:38→16:10)
--- NOTE | 2023-01-02 03:59 | PC.NURSE ---
Patient received from ED via stretcher. Patient able to ambulate to bed with standby assist only. Patient reports feeling less nauseated and also reports improvement of pain to 7/10. Admission completed as documented. Med Rec complete. Medications administered as ordered. Instructed patient on new medication patch of scopolamine which was placed behind her left ear. Patient verbalizes complete understanding stating I have had this before. Assisted patient up to BSC. No other needs or distresses observed. Will continue to monitor.
[2023-01-02 04:26] LABS: Amphetamines Screen Urine Negative (Negative); Barbiturates Screen Urine Negative (Negative); Benzodiazepines Screen Urine Negative (Negative); Cocaine Screen Urine Negative (Negative); Opiate Screen Urine Positive (Negative); PCP Screen Urine Negative (Negative); THC Screen Urine Negative (Negative)
[2023-01-02] MEDS: metoclopramide 5 mg/mL SDV 2 mL 10 MG IVP (05:28)
[2023-01-02 06:03] LABS: Magnesium 1.9 mg/dL (1.7-2.3)
[2023-01-02 06:15] LABS: Glucose Point of Care 263 mg/dL (70-110)
--- NOTE | 2023-01-02 06:22 | PC.NURSE ---
Patient continues to c/o abdominal pain of 8/. Informed Dr Tee and received onetime order for Morphine 1mg IVP. RBVO
[2023-01-02] MEDS: morphine 4 mg/mL SDV 1 mL 1 MG IVP (06:27)
[2023-01-02] MEDS: insulin lispro 100 unit/1 mL SUBCUT ×2 (07:37→17:48)
[2023-01-02] MEDS: ondansetron 2 mg/ML SDV 2 mL 4 MG IVP (08:30)
[2023-01-02] MEDS: spironolactone 25 mg Tablet PO (08:33)
[2023-01-02] MEDS: isosorbide mononitrate ER 30 mg Tablet 15 MG PO (08:33)
[2023-01-02] MEDS: apixaban 5 mg Tablet PO ×2 (08:34→17:46)
[2023-01-02] MEDS: carvedilol 12.5 mg Tablet 25 MG PO ×2 (08:34→17:48)
[2023-01-02] MEDS: pantoprazole DR 40 mg Tablet PO ×3 (08:35→19:46)
[2023-01-02] MEDS: acetaminophen 325 mg Tablet 650 MG PO (08:39)
[2023-01-02] MEDS: pneumococcal (23 valent) SDV 0.5 mL IM (08:40)
[2023-01-02] MEDS: oxyCODONE 5 mg IR Tab/Cap PO ×3 (10:20→20:55)
[2023-01-02 10:24] LABS: Thyroid Stimulating Hormone 0.74 uIU/mL (0.27-4.20)
[2023-01-02 11:16] LABS: Cortisol Random 19.54 ug/dL (2.47-19.5)
[2023-01-02] MEDS: LORazepam 2 mg/mL INJ 1 mL 1 MG IM ×2 (11:28→19:54)
[2023-01-02 11:30] LABS: Glucose Point of Care 182 mg/dL (70-110)
[2023-01-02] MEDS: cloNIDine 0.1 mg Tablet PO ×2 (11:56→23:22)
--- NOTE | 2023-01-02 12:05 | PC.NURSE ---
At 1128 the [employer] MAT INSPECTOR reported that she witnessed patient having a seizure which lasted about 40 seconds. confirmed that it was a seizure and that she takes medication for them at home. Dr. Kolb notified and new orders were put in. Seizure precautions initiated.
--- NOTE | 2023-01-02 13:05 | P.PN_ITS ---
Subjective Subjective: Patient was seen this morning, she feels better, no more nausea, she tells me that she has yet to see a specialist in [facility] for consideration of evaluation of pheochromocytoma Vitals/I&O/Wt Last Vital Signs Temp 99.0 F 01/02/23 03:58 Pulse 91 01/02/23 03:59 Resp 16 01/02/23 10:20 BP 180/155 01/02/23 11:56 Pulse Ox 95 01/02/23 10:20 O2 Del Method 01/02/23 03:58 01/01/23 01/02/23 01/02/23 22:59 06:59 14:59 Intake Total 240 / 240 1240 / 1240 Output Total 450 / 450 Balance -210 / -210 1240 / 1240 Weight last 48 hrs Weight 88.36 kg Weight 87.543 kg Physical Exam Const: COMMON NORMALS: no acute distress and patient oriented x3 Resp: COMMON NORMALS: normal respiratory effort, No retractions, No use of accessory muscles and clear to auscultation bilaterally AUSCULTATION: clear to auscultation bilaterally Cardio: COMMON NORMALS: regular rate, regular rhythm, S1 normal heart sound present and S2 normal heart sound present RATE: regular rate RHYTHM: regular rhythm HEART SOUNDS: S1 normal heart sound present and S2 normal heart sound present GI: COMMON NORMALS: Normal to inspection, nondistended, normoactive bowel sounds present and non-tender Extremity: COMMON NORMALS: no pedal edema Neuro: COMMON NORMALS: patient oriented x3 Psych: COMMON NORMALS: mental status grossly normal Data 01/01/23 21:20 01/01/23 21:20 A&P Assessment and plan (1) Hypertension: (2) Constipation: (3) Nausea: (4) DM2 (diabetes mellitus, type 2): (5) Anxiety: (6) Atrial fibrillation: (7) Chronic pancreatitis: Qualifiers: Pancreatitis type: other Qualified Code(s): K86.1 - Other chronic pancreatitis (8) Hypertensive urgency: Plan #Hypertensive Urgency #Nausea, vomiting, abdominal pain #Hx of Constipation #Chronic pancreatitis history #Diabetes mellitus, insulin-dependent #Uncontrolled hypertension, labile blood pressures #History of adrenal nodule being followed by endocrinology at [facility], question of pheochromocytoma? #History of atrial fibrillation, rate controlled at this time ? Scopolamine patch, Zofran and Reglan alternating for nausea ? Continue lactulose 15 g twice daily scheduled ? Lipase protease amylase capsule 3 times daily to be continued ? Continue Protonix 40 twice daily, tizanidine 8 mg 3 times daily ? Continue Ambien 5 mg at bedtime ? Moderate dose intensity sliding scale insulin at this time. ? Continue Eliquis 5 twice daily ? Continue brivaracetam 25 mg daily, will bring in tomorrow, ? Continue on spironalactone 25 daily, coreg 25 BID daily, hydralazine 50 TID pRN (home meds), imdur 15 daily. -Add clonidine 0.1 ID ? Patient to be encouraged to follow-up with endocrinology as an outpatient after discharge. - CT abdomen pelvis shows:1. ? Fatty infiltration of the liver 2. ? Low-attenuation mildly lobulated 2 cm left adrenal nodularity likely represents a benign adrenal adenoma. No further workup needed. 3. ? Hypoattenuation cystic mass associated with the right ovary measuring up to 3 cm likely represents a benign or functional ovarian cyst. No further workup needed. 4. ? Normal appendix 5. ? No evidence for ureteral obstruction - Reviewed EKG, no acute ischemic changes noted. - Clear liquids, advance as tolerated - Check BP q4 Hours Full code SCDs, Eliquis on board should suffice for DVT prophylaxis Attestations Medical Necessity Statement*: Patient requires hospitalization for hypertensive urgency, nausea, vomiting Diagnoses Hypertension I10 Constipation K59.00 Nausea R11.0 DM2 (diabetes mellitus, type 2) E11.9 Anxiety F41.9 Atrial fibrillation I48.91 Chronic pancreatitis K86.1 Pancreatitis type: other Hypertensive urgency I16.0
[2023-01-02 20:14] LABS: Glucose Point of Care 206 mg/dL (70-110)
--- NOTE | 2023-01-02 20:27 | PC.NURSE ---
Patient was requesting PRN Ativan for anxiety. The nurse explained to the patient that her ativan order was for seizure activity and that the nurse would have to call the doctor to see if they could order her something for anxiety. After explaining this to the patient the patient starting shaking and started I feel like I'm trying to have a seizure . The patient stated that she was seeing halos which happens when she has a seizure. The nurse got the IM Ativan and administered it at 19:54. The patient never lost conciousness and after receiving the IM Ativan asked if she was due for her pain medication was due yet. The nurse messaged to make her aware that the ativan dose was given early due to patient stating that she felt as if she were about to have a seizure. aware, no new orders at this time.
[2023-01-02 20:48] LABS: Glucose Point of Care 84 mg/dL (70-110)
[2023-01-03] VITALS (18 sets, daily range): BP systolic 105–156; BP diastolic 66–98; PULSE 69–84; RESP 12–25; TEMP 36.2–36.6; O2SAT 90–96
[2023-01-03] MEDS: sodium chloride 0.9% 1,000 ML 125 ML IV ×3 (02:07→18:17)
[2023-01-03] MEDS: morphine ER (12 HR) 30 mg tablet PO ×2 (02:07→14:34)
[2023-01-03] MEDS: heparin 5,000 unit/mL INJ 1 mL 5000 UNIT SUBCUT ×2 (02:11→13:59)
[2023-01-03] MEDS: oxyCODONE 5 mg IR Tab/Cap PO ×5 (03:34→22:19)
[2023-01-03] MEDS: tizanidine 4 mg Tablet 8 MG PO ×3 (03:35→18:09)
[2023-01-03 05:01] LABS: Basophils # 0.1 10^3/uL (0.0-0.1); Basophils % 0.7 %; Eosinophils # 0.1 10^3/uL (0.0-0.8); Eosinophils % 0.9 %; Hematocrit 35.9 % (37.0-47.0); Hemoglobin 11.3 g/dL (11.5-15.3); Lymphocytes % 38.4 %; Mean Corpuscular HGB Conc 31.5 g/dL (30.0-36.0); Mean Corpuscular Hemoglobin 29.1 pg (28.0-34.0); Mean Corpuscular Volume 92.5 fl (81-99); Mean Platelet Volume 11.1 fL (7.4-10.4); Monocytes # 0.9 10^3/uL (0.2-0.9); Neutrophils # 5.22 10^3/uL (1.8-7.7); Neutrophils % 50.3 %; Nucleated Red Blood Cells % 0 %; Platelet Count 190 10^3/cmm (130-400); Red Blood Count 3.88 10^6/uL (4.1-5.3); Red Cell Distribution Width 14.6 % (12.1-15.1); White Blood Count 10.4 10^3/uL (4.0-10.0)
[2023-01-03 05:18] LABS: Anion Gap 10.9 (5-19); Blood Urea Nitrogen 4 mg/dL (6-20); Calcium 7.6 mg/dL (8.5-10.5); Carbon Dioxide 21 mmol/L (22-29); Chloride 109 mmol/L (98-107); Glomerular Filtration Rate 109.1 mL/min (90-130); Glucose 164 mg/dL (65-115); Osmolality Calculated 285 mOsm/kg (285-295); Potassium 3.9 mmol/L (3.5-5.1); Sodium 137 mmol/L (136-145)
[2023-01-03 06:38] LABS: Glucose Point of Care 154 mg/dL (70-110)
[2023-01-03] MEDS: insulin lispro 100 unit/1 mL SUBCUT (08:08)
[2023-01-03] MEDS: spironolactone 25 mg Tablet PO (08:10)
[2023-01-03] MEDS: apixaban 5 mg Tablet PO ×2 (08:12→17:27)
[2023-01-03] MEDS: carvedilol 12.5 mg Tablet 25 MG PO ×2 (08:12→17:27)
[2023-01-03] MEDS: isosorbide mononitrate ER 30 mg Tablet 15 MG PO (08:12)
[2023-01-03] MEDS: pantoprazole DR 40 mg Tablet PO ×2 (08:13→21:25)
[2023-01-03] MEDS: LORazepam 2 mg/mL INJ 1 mL 1 MG IM ×2 (08:30→15:02)
[2023-01-03] MEDS: ondansetron 2 mg/ML SDV 2 mL 4 MG IVP (08:30)
--- NOTE | 2023-01-03 10:03 | PC.CHAP ---
Pastoral Care Encounter/Spiritual Assessment Type of Contact [] Declined set up operator tool visit [] Patient/Family/Request visit [] Outpatient visit [] Follow-up visit [] Physician referral [] Code/Alert [x] Routine visit [] Staff referral [] Actively dying [] Patient sleeping [] Family support [] [] Out of room [] Palliative care [] [] Receiving care in room [] Pre-surgical visit [] Trauma [] Long length of stay [] ICU visit [] Other: Relational/Emotional Strength [x] Patient feels connected with others/family/visitors/staff [] Distress [] Loneliness/isolation [] Abandonment Spirituality of Patient [x] Person of [place] [] Attends Episcopalian of their [place] [] Believes in Prayer [] Reads Bible or Confucianist materials [] There are Spiritual issues to be addressed [employer] Assistant Interventions [x] Prayer [] Active listening [] Non-anxious presence [x] Spiritual/emotional support [] Crisis/trauma care [] Spiritual counseling [] Bereavement support [] Provided bereavement packet [] Provided Bible/devotional materials [] Provided toy/stuffed animal, coloring book to patient or family member [] Provided Communion [] Anointing/[place] [] Salvation [x] Completed spiritual assessment [] Other: Impact on Illness or Injury [] Angry [] Fearful [] Anxious [] Often cries [] Exhaustion [] Unable to work [] Unable to attend shinto [] Unable to walk/stand [] Unable to read [] Unable to drive [] Unable to eat/drink [] Unable to sleep [] Unable to be with family [] Patient intubated [] Other: Summary Time spent with patient 5 min
[2023-01-03 11:46] LABS: Glucose Point of Care 130 mg/dL (70-110)
[2023-01-03] MEDS: cloNIDine 0.1 mg Tablet PO ×2 (12:33→23:56)
[2023-01-03] MEDS: BRIVARACETAM 25 MG 25 EACH PO (13:59)
--- NOTE | 2023-01-03 14:28 | P.PN_ITS ---
Subjective Subjective: patient coutinues to have complaint of epigastric pain, no fever, no chills, no cough, no headache Vitals/I&O/Wt Last Vital Signs Temp 97.2 F L 01/03/23 11:21 Pulse 75 01/03/23 12:30 Resp 18 01/03/23 12:32 BP 113/66 01/03/23 12:33 Pulse Ox 92 01/03/23 12:32 O2 Del Method 01/03/23 11:21 01/02/23 01/03/23 01/03/23 22:59 06:59 14:59 Intake Total 1728.333 / 2968.333 1160 / 4128.333 1590 / 1590 Output Total 700 / 700 300 / 1000 300 / 300 Balance 1028.333 / 2268.333 860 / 3128.333 1290 / 1290 Weight last 48 hrs Weight 96.842 kg Weight 88.36 kg Weight 87.543 kg Physical Exam Const: COMMON NORMALS: no acute distress and patient oriented x3 Resp: COMMON NORMALS: normal respiratory effort, No retractions, No use of accessory muscles and clear to auscultation bilaterally AUSCULTATION: clear to auscultation bilaterally Cardio: COMMON NORMALS: regular rate, regular rhythm, S1 normal heart sound present and S2 normal heart sound present RATE: regular rate RHYTHM: regular rhythm HEART SOUNDS: S1 normal heart sound present and S2 normal heart sound present GI: COMMON NORMALS: Normal to inspection, nondistended, normoactive bowel sounds present and non-tender Extremity: COMMON NORMALS: no pedal edema Neuro: COMMON NORMALS: patient oriented x3 Psych: COMMON NORMALS: mental status grossly normal Data 01/03/23 04:44 01/03/23 04:44 A&P Assessment and plan (1) Hypertension: (2) Constipation: (3) Nausea: (4) DM2 (diabetes mellitus, type 2): (5) Anxiety: (6) Atrial fibrillation: (7) Chronic pancreatitis: Qualifiers: Pancreatitis type: other Qualified Code(s): K86.1 - Other chronic pancreatitis (8) Hypertensive urgency: (9) Breakthrough seizure: Plan #Hypertensive Urgency #Nausea, vomiting, abdominal pain #Hx of Constipation #Chronic pancreatitis history #Diabetes mellitus, insulin-dependent #Uncontrolled hypertension, labile blood pressures #History of adrenal nodule being followed by endocrinology at [facility], question of pheochromocytoma? #History of atrial fibrillation, rate controlled at this time ? Scopolamine patch, Zofran and Reglan alternating for nausea ? Continue lactulose 15 g twice daily scheduled ? Lipase protease amylase capsule 3 times daily to be continued ? Continue Protonix 40 twice daily, tizanidine 8 mg 3 times daily ? Continue Ambien 5 mg at bedtime ? Moderate dose intensity sliding scale insulin at this time. ? Continue Eliquis 5 twice daily -had one break through seizure yesteray afternoon, placed on keppra, will coutin ue, ativan 1mg im prn for break through seizures ? Continue brivaracetam 25 mg daily, will bring in today ? Continue on spironalactone 25 daily, coreg 25 BID daily, hydralazine 50 TID pRN (home meds), imdur 15 daily. -Add clonidine 0.1 ID ? Patient to be encouraged to follow-up with endocrinology as an outpatient after discharge. - CT abdomen pelvis shows:1. ? Fatty infiltration of the liver 2. ? Low-attenuation mildly lobulated 2 cm left adrenal nodularity likely represents a benign adrenal adenoma. No further workup needed. 3. ? Hypoattenuation cystic mass associated with the right ovary measuring up to 3 cm likely represents a benign or functional ovarian cyst. No further workup needed. 4. ? Normal appendix 5. ? No evidence for ureteral obstruction - Reviewed EKG, no acute ischemic changes noted. - Clear liquids, advance as tolerated - Check BP q4 Hours -coutinue abdominal pain, will repeat lft, and lipas, and crp Full code SCDsJhonatan on board should suffice for DVT prophylaxis Attestations Medical Necessity Statement*: patient requires hospitalization fro breakthrough seizure, htn, abdominal pain Diagnoses Hypertension I10 Constipation K59.00 Nausea R11.0 DM2 (diabetes mellitus, type 2) E11.9 Anxiety F41.9 Atrial fibrillation I48.91 Chronic pancreatitis K86.1 Pancreatitis type: other Hypertensive urgency I16.0 Breakthrough seizure G40.919
[2023-01-03] MEDS: metoclopramide 5 mg/mL SDV 2 mL 10 MG IVP (14:35)
[2023-01-03 17:06] LABS: Glucose Point of Care 117 mg/dL (70-110)
--- NOTE | 2023-01-03 19:23 | PC.NURSE ---
Pt reported pain and morphine was given at 1434. while at bedside patient reported feeling a seizure coming on. I'm restless and feel a halo around me. PRN ativan already given. spoke with main SINGH who approved another IM dose of ativan (1502 - see dec). pt requested more pain medication. RN reminded pt about previous morphine and suggested positioning and if pain does not decrease in a 15 to call out and additional pain medication can be provided. Rn help patient reposition and additional pillows were given. RN rounded around 1600 and patient was found sleeping, quietly on her side. Around 1720 RN was notified pt calling out for pain medication after using BSC. 1726 pain medication was given (see MAR) 1800 spasm medication was given.
[2023-01-03 20:25] LABS: Glucose Point of Care 131 mg/dL (70-110)
[2023-01-04] VITALS (8 sets, daily range): BP systolic 120–188; BP diastolic 59–84; PULSE 71–78; RESP 12–18; TEMP 36.6–36.7; O2SAT 94–98
[2023-01-04] MEDS: tizanidine 4 mg Tablet 8 MG PO ×2 (00:03→08:26)
[2023-01-04] MEDS: sodium chloride 0.9% 1,000 ML 125 ML IV (01:59)
[2023-01-04] MEDS: heparin 5,000 unit/mL INJ 1 mL 5000 UNIT SUBCUT (03:12)
[2023-01-04] MEDS: morphine ER (12 HR) 30 mg tablet PO (03:12)
[2023-01-04] MEDS: ondansetron 2 mg/ML SDV 2 mL 4 MG IVP (03:36)
[2023-01-04 04:16] LABS: Basophils # 0.1 10^3/uL (0.0-0.1); Basophils % 0.8 %; Eosinophils # 0.1 10^3/uL (0.0-0.8); Eosinophils % 1.3 %; Hematocrit 35.1 % (37.0-47.0); Hemoglobin 10.7 g/dL (11.5-15.3); Lymphocytes # 4.4 10^3/uL (0.8-4.8); Lymphocytes % 43.3 %; Mean Corpuscular HGB Conc 30.5 g/dL (30.0-36.0); Mean Corpuscular Hemoglobin 27.7 pg (28.0-34.0); Mean Corpuscular Volume 90.9 fl (81-99); Monocytes # 0.9 10^3/uL (0.2-0.9); Monocytes % 8.3 %; Neutrophils # 4.65 10^3/uL (1.8-7.7); Neutrophils % 45.5 %; Nucleated Red Blood Cells % 0 %; Platelet Count 169 10^3/cmm (130-400); Red Blood Count 3.86 10^6/uL (4.1-5.3); Red Cell Distribution Width 14.6 % (12.1-15.1); White Blood Count 10.2 10^3/uL (4.0-10.0)
[2023-01-04] MEDS: oxyCODONE 5 mg IR Tab/Cap PO ×2 (04:26→07:57)
[2023-01-04 04:41] LABS: Anion Gap 11.8 (5-19); Blood Urea Nitrogen 3 mg/dL (6-20); Calcium 7.9 mg/dL (8.5-10.5); Carbon Dioxide 22 mmol/L (22-29); Chloride 108 mmol/L (98-107); Glomerular Filtration Rate 109.1 mL/min (90-130); Glucose 133 mg/dL (65-115); Osmolality Calculated 284 mOsm/kg (285-295); Potassium 3.8 mmol/L (3.5-5.1); Sodium 138 mmol/L (136-145)
[2023-01-04] MEDS: ALPRAZolam 0.5 mg Tablet PO (04:51)
[2023-01-04 07:29] LABS: Glucose Point of Care 114 mg/dL (70-110)
[2023-01-04] MEDS: levETIRAcetam 500 mg Tablet 1000 MG PO (07:57)
[2023-01-04] MEDS: pantoprazole DR 40 mg Tablet PO (07:58)
[2023-01-04] MEDS: isosorbide mononitrate ER 30 mg Tablet 15 MG PO (08:00)
[2023-01-04] MEDS: BRIVARACETAM 25 MG 25 EACH PO (08:00)
[2023-01-04] MEDS: apixaban 5 mg Tablet PO (08:00)
[2023-01-04] MEDS: carvedilol 12.5 mg Tablet 25 MG PO (08:00)
[2023-01-04] MEDS: spironolactone 25 mg Tablet PO (08:00)
--- NOTE | 2023-01-04 09:12 | PM.DCS ---
Discharge Providers Date of Admission: 01/02/23 01:49 Date of Discharge: January 04, 2023 Attending Provider at Admission: Robyn Tee MD Attending Provider at Discharge: Ryan Kolb MD Primary Care Provider: Galo Perez MD Diagnoses at Discharge Discharge Diagnosis (1) Hypertension: Status: Inactive (2) Constipation: Status: Inactive (3) Nausea: Status: Acute (4) DM2 (diabetes mellitus, type 2): Status: Acute (5) Anxiety: Status: Acute (6) Atrial fibrillation: Status: Acute (7) Chronic pancreatitis: Status: Acute Qualifiers: Pancreatitis type: other Qualified Code(s): K86.1 - Other chronic pancreatitis (8) Hypertensive urgency: Status: Acute (9) Breakthrough seizure: Status: Acute Reason for Visit Reason for Visit: abd pain upper right, n/v Hospital Course Hospital Course 2-year-old female with past medical history of chronic pancreatitis, concern for pheochromocytoma, history of adrenal nodule being followed by endocrinology at [facility], chronic lower extremity pain, diabetes, epilepsy, hypertension, labile hypertension, A-fib with RVR presented to the hospital with complaint of vomiting multiple times a day not making much urine and having right upper quadrant pain and right flank pain.? She was seen at an outside facility and was told her pancreas was inflamed.? She is also constipated and has used multiple medications for constipation and now having some loose stools.? Her blood pressure has been elevated since he is unable to keep her blood pressure medication down due to vomiting and nausea.? She saw her primary care doctor last week mainly for constipation and her bowel regimen was optimized.? She also complained of nausea vomiting abdominal pain at that visit.? Patient was directed to go to the ER.? CT abdomen pelvis was done which showed mildly prominent small bowel nonspecific but may be seen with gastroenteritis.? There was also incidental finding of left adrenal nodule that was seen on previous CT abdomen images.? Patient refused an enema at that time.? Ultimately she was discharged.? Blood pressure arrival 161/79, respiratory 20, pulse 75, temperature 98.3.? WBC 14.4, hemoglobin 14.9, platelets 276, sodium 134, potassium 4.4, creatinine 0.6, lactate 1.2, AST 41, ALT 36, C-reactive protein 18.1.? Of note at previous admission in August 2022 patient was admitted for A-fib RVR and was cardioverted by cardiology.? Patient given Coreg 25 mg x 1, Dilaudid 1 mg x 2, labetalol 20 IV push x1.? Zofran 4 mg IV push x2, spironolactone 25x1, Benadryl 25 IV push x1, hydralazine 50x1, Haldol 5 mg x 1.She says she has not taken her medications for last 3 days secondary to n/v and is unable to keep anything down. 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 Ayers In terms of her anxiety, I have discharged her on low-dose clonazepam 0.5 mg once daily for anxiety, I went over these instructions with her personally -For your anxiety I discharged you on clonazepam 0.5 mg once daily as needed for anxiety, do not drive or operate heavy machinery or drink or take narcotics or briviact while taking clonazepam due to risk of side effects and respiratory depression In terms of her type 2 diabetes mellitus, her blood sugars are actually well controlled, I have discharged her on a lispro sliding scale, reduce dose of Lantus, follow-up with primary care provider for blood sugar titration -For your line this I decreased her dose to 5 units subcu every morning -Please monitor your blood sugars closely -Monitor your blood sugars 3 times daily as after meals -Please record your blood sugars, and a blood sugar log -For your lispro -Please inject blood sugar after meals based on sliding scale provided -Do not inject insulin if you do not eat as hypoglycemia kills -This is a lispro sliding scale -Insulin sliding ?fingerstick? Insulin ?141-180?0 units/sq 181-220?2 units/sq ?221-260?4 units/sq ?261-300 6 units/sq ?301-350?8 units/sq ?351-400 10 units/sq > 400? 12 units/sq -If your blood sugar is greater than 500 go to the emergency room -If your blood sugar is less than 60 or at anytime you feel lightheaded or dizzy or diaphoretic or have chest palpitations check your blood sugar, and eat a hard candy or drink orange juice and go immediately to the emergency room -Remember hypoglycemia kills, so if his blood sugar is less than 60 we have to increase it by taking in a sugary meal such as a hard candy or orange juice and go to the emergency room -If you have any questions please call us where here to help -For your anxiety I discharged you on clonazepam 0.5 mg once daily as needed for anxiety, do not drive or operate heavy machinery or drink or take narcotics or briviact while taking clonazepam due to risk of side effects and respiratory depression -For your breakthrough seizures I have discharged on Keppra 1000 mg twice daily, please follow-up with Dr. Ayers Physical Exam Const: COMMON NORMALS: no acute distress and patient oriented x3 Resp: COMMON NORMALS: normal respiratory effort, No retractions, No use of accessory muscles and clear to auscultation bilaterally AUSCULTATION: clear to auscultation bilaterally Cardio: COMMON NORMALS: regular rate, regular rhythm, S1 normal heart sound present and S2 normal heart sound present RATE: regular rate RHYTHM: regular rhythm HEART SOUNDS: S1 normal heart sound present and S2 normal heart sound present GI: COMMON NORMALS: Normal to inspection, nondistended, normoactive bowel sounds present and non-tender Extremity: COMMON NORMALS: no pedal edema Neuro: COMMON NORMALS: patient oriented x3 Psych: COMMON NORMALS: mental status grossly normal Discharge Data Studies Completed and Pending Completed Studies During Hospitalization Category Date Time Status CT abdomen pelvis w con* [id number] Stat Cat Scan 01/01/23 20:56 Completed Pending at discharge Category Date Time Status Basic Metabolic Panel AM LABS Lab 01/05/23 04:00 Ordered Basic Metabolic Panel AM LABS Lab 01/06/23 04:00 Ordered Catecholamines Frac,Urine Branch Routine Lab 01/02/23 03:45 Received Catecholamines Free,Urine 24hr Stat Lab 01/03/23 12:55 Received Complete Blood Count w/Auto AM LABS Lab 01/05/23 04:00 Ordered Complete Blood Count w/Auto AM LABS Lab 01/06/23 04:00 Ordered Metanephrines, Fract 24Hr Urin Routine Lab 01/02/23 12:56 Received Radiology Impressions Abdomen/Pelvis CT 01/01/23 20:56 IMPRESSION: 1. Fatty infiltration of the liver 2. Low-attenuation mildly lobulated 2 cm left adrenal nodularity likely represents a benign adrenal adenoma. No further workup needed. 3. Hypoattenuation cystic mass associated with the right ovary measuring up to 3 cm likely represents a benign or functional ovarian cyst. No further workup needed. 4. Normal appendix 5. No evidence for ureteral obstruction Laboratory Results WBC 10.2 10^3/uL (4.0-10.0) H 01/04/23 03:51 RBC 3.86 10^6/uL (4.1-5.3) L 01/04/23 03:51 Hgb 10.7 g/dL (11.5-15.3) L 01/04/23 03:51 Hct 35.1 % (37.0-47.0) L 01/04/23 03:51 MCV 90.9 fl (81-99) 01/04/23 03:51 MCH 27.7 pg (28.0-34.0) L 01/04/23 03:51 MCHC 30.5 g/dL (30.0-36.0) 01/04/23 03:51 RDW 14.6 % (12.1-15.1) 01/04/23 03:51 Plt Count 169 10^3/cmm (130-400) 01/04/23 03:51 MPV 12.0 fL (7.4-10.4) H 01/04/23 03:51 Neut % (Auto) 45.5 % 01/04/23 03:51 Lymph % (Auto) 43.3 % 01/04/23 03:51 Izard % (Auto) 8.3 % 01/04/23 03:51 Eos % (Auto) 1.3 % 01/04/23 03:51 Baso % (Auto) 0.8 % 01/04/23 03:51 Neut # (Auto) 4.65 10^3/uL (1.8-7.7) 01/04/23 03:51 Lymph # (Auto) 4.4 10^3/uL (0.8-4.8) 01/04/23 03:51 Izard # (Auto) 0.9 10^3/uL (0.2-0.9) 01/04/23 03:51 Eos # (Auto) 0.1 10^3/uL (0.0-0.8) 01/04/23 03:51 Baso # (Auto) 0.1 10^3/uL (0.0-0.1) 01/04/23 03:51 Nucleated RBC % (auto) 0 % 01/04/23 03:51 Nucleated RBCs # 0.0 /100WBC 01/04/23 03:51 Sodium 138 mmol/L (136-145) 01/04/23 03:51 Potassium 3.8 mmol/L (3.5-5.1) 01/04/23 03:51 Chloride 108 mmol/L (98-107) H 01/04/23 03:51 Carbon Dioxide 22 mmol/L (22-29) 01/04/23 03:51 Anion Gap 11.8 (5-19) 01/04/23 03:51 BUN 3 mg/dL (6-20) L 01/04/23 03:51 Creatinine 0.6 mg/dL (0.5-0.9) 01/04/23 03:51 GFR Calculation 109.1 mL/min (90-130) 01/04/23 03:51 Glucose 133 mg/dL (65-115) H 01/04/23 03:51 POC Glucose 114 mg/dL (70-110) H 01/04/23 07:25 Calculated Osmolality 284 mOsm/kg (285-295) L 01/04/23 03:51 Lactate 1.0 mmol/L (0.5-2.2) 01/01/23 21:20 Calcium 7.9 mg/dL (8.5-10.5) L 01/04/23 03:51 Magnesium 1.9 mg/dL (1.7-2.3) 01/01/23 21:20 Total Bilirubin 0.5 mg/dL (0.15-1.2) 01/01/23 21:20 AST 41 U/L (0-32) H 01/01/23 21:20 ALT 36 U/L (0-33) H 01/01/23 21:20 Alkaline Phosphatase 111 U/L (35-105) H 01/01/23 21:20 C-Reactive Protein 18.1 mg/L (0.0-4.9) H 01/01/23 21:20 Total Protein 7.8 g/dL (6.6-8.7) 01/01/23 21:20 Albumin 4.2 g/dL (3.5-5.2) 01/01/23 21:20 Globulin 3.6 g/dL (1.3-4.6) 01/01/23 21:20 Lipase 25 U/L (13-60) 01/01/23 21:20 TSH 0.74 uIU/mL (0.27-4.20) 01/01/23 21:20 HCG, Qual Negative (Negative) 01/01/23 21:20 Random Cortisol 19.54 ug/dL (2.47-19.5) H 01/01/23 21:20 Dopamine Cancelled 01/02/23 12:58 Epinephrine Cancelled 01/02/23 12:58 Norepinephrine Cancelled 01/02/23 12:58 Total Catecholamines Cancelled 01/02/23 12:58 Plasma Free Metaneph Cancelled 01/02/23 12:58 Plasma Free Normeta Cancelled 01/02/23 12:58 Pls Totl Free Metaneph Cancelled 01/02/23 12:58 Urine Color Yellow (Yellow) 01/01/23 22:52 Urine Appearance Clear (CLEAR) 01/01/23 22:52 Urine pH 7 (5-7) 01/01/23 22:52 Ur Specific [place] 1.005 (1.005-1.030) 01/01/23 22:52 Urine Protein 1+ (Negative) H 01/01/23 22:52 Urine Glucose (UA) 2+ (Normal) H 01/01/23 22:52 Urine Ketones 2+ (Negative) H 01/01/23 22:52 Urine Blood 2+ (Negative) H 01/01/23 22:52 Urine Nitrate Negative (Negative) 01/01/23 22:52 Urine Bilirubin 1+ (Negative) H 01/01/23 22:52 Urine Urobilinogen 4 mg/dL (Negative) H 01/01/23 22:52 Ur Leukocyte Esterase Negative (Negative) 01/01/23 22:52 Urine RBC 0-4 /hpf (0-2) H 01/01/23 22:52 Urine WBC 0-4 /hpf (0-5) H 01/01/23 22:52 Ur Squamous Epith Cells 0-4 /hpf (0-5) H 01/01/23 22:52 Amorphous Sediment Not Reportable 01/01/23 22:52 Urine Bacteria Trace /hpf (NONE) 01/01/23 22:52 Ur Random Creatinine Cancelled 01/02/23 Unknown Ur Random Dopamine Cancelled 01/02/23 Unknown Ur Random Epinephrine Cancelled 01/02/23 Unknown U Random Norepinephrine Cancelled 01/02/23 Unknown Urine Total Volume Cancelled 01/02/23 12:58 Urine Epinephrine Cancelled 01/02/23 12:58 U Epinephrine & Norepi Cancelled 01/02/23 Unknown U Epineph & Norepi 24h Cancelled 01/02/23 12:58 Urine Norepinephrine Cancelled 01/02/23 12:58 Urine Dopamine Cancelled 01/02/23 12:58 Urine Opiates Screen Positive ng/mL (Negative) H 01/02/23 03:45 Ur Barbiturates Screen Negative ng/mL (Negative) 01/02/23 03:45 Ur Phencyclidine Scrn Negative ng/mL (Negative) 01/02/23 03:45 Ur Amphetamines Screen Negative ng/mL (Negative) 01/02/23 03:45 U Benzodiazepines Scrn Negative ng/mL (Negative) 01/02/23 03:45 Urine Cocaine Screen Negative ng/mL (Negative) 01/02/23 03:45 U Marijuana (THC) Screen Negative ng/mL (Negative) 01/02/23 03:45 Vitals Last Vital Signs Temp 98.0 F 01/04/23 07:52 Pulse 76 01/04/23 08:04 Resp 17 01/04/23 08:04 BP 188/84 01/04/23 08:04 Pulse Ox 98 01/04/23 08:04 O2 Del Method 01/04/23 08:04 O2 Flow Rate 2 01/04/23 08:04 Discharge Plan Discharge Patient Disposition: Home Condition: Stable Prescriptions: New clonazepam 0.5 mg tablet 0.5 mg PO DAILY PRN (Reason: anxiety) 7 Days Qty: 7 0RF Rx Instructions: donot drive/ operate heavy machinery/drink alcohol or take narcotics with medication clonidine HCl 0.1 mg Tablet 0.1 mg PO Q12H 30 Days Qty: 60 0RF levetiracetam 500 mg Tablet 1,000 mg PO Q12H 30 Days Qty: 120 0RF Continued (DME) STANDARD WHEELCHAIR See Rx Instructions .Route .MEDSUPPLY Qty: 1 0RF Rx Instructions: As directed ([facility] [place]) blood-glucose meter [OneTouch Ultra2 Meter] [facility] See Rx Instructions .Route Qty: 1 0RF Rx Instructions: As directed ([facility] [place]) lancets [OneTouch UltraSoft Lancets] [facility] See Rx Instructions .Route Qty: 200 2RF Rx Instructions: As directed furosemide 20 mg tablet 20 mg PO DAILY PRN (Reason: edema) Qty: 30 0RF potassium chloride 20 mEq tablet extended release 20 meq PO DAILY Qty: 90 0RF lactulose 10 gram/15 mL (15 mL) solution 10 g PO DAILY PRN (Reason: constipation) Qty: 600 0RF tizanidine 4 mg tablet 8 mg PO TID PRN (Reason: muscle spasticity) 30 Days Qty: 180 3RF zolpidem 5 mg tablet 5 mg PO BEDTIME PRN (Reason: Sleep) Qty: 30 3RF Zenpep 40,000-126,000- 168,000 unit capsule,delayed release(DR/EC) 1 cap PO TID Qty: 90 8RF Rx Instructions: administer with meals and/or snacks ([facility] [place]) OneTouch Ultra Test Strip See Rx Instructions .ROUTE .MEDSUPPLY Qty: 100 1RF Rx Instructions: As directed Briviact 25 mg tablet 25 mg PO DAILY Qty: 60 3RF morphine 30 mg tablet extended release 30 mg PO Q12H 30 Days Qty: 60 0RF Rx Instructions: at 0800/2000 pantoprazole 40 mg tablet,delayed release (DR/EC) 40 mg PO BID@08,20 Qty: 90 3RF docusate sodium 283 mg/5 mL enema 283 mg GA DAILY Qty: 150 1RF ondansetron HCl 4 mg tablet 4 mg PO Q8H PRN (Reason: nausea and vomiting) Qty: 20 2RF diphenhydramine HCl [Benadryl] 25 mg Capsule 25 mg PO Q6H PRN (Reason: Allergy Symptoms) polyethylene glycol 3350 [Miralax] 17 gram/dose Powder 17 g PO QAM PRN (Reason: Constipation) prochlorperazine maleate 10 mg tablet 10 mg PO Q8H PRN (Reason: Nausea And Vomiting) isosorbide mononitrate 30 mg Tablet Extended Release 24 Hr 15 mg PO DAILY spironolactone 25 mg Tablet 25 mg PO DAILY Eliquis 5 mg tablet 5 mg PO BID Qty: 120 3RF carvedilol 12.5 mg tablet 25 mg PO BID Qty: 60 2RF Changed insulin glargine [Lantus Solostar U-100 Insulin] 100 unit/mL (3 mL) insulin pen 5 unit SUBCUT QAM Qty: 15 0RF insulin lispro 100 unit/mL insulin pen See Rx Instructions .ROUTE .COMPLEX 30 Days Qty: 15 0RF Rx Instructions: Inject, subcu, 3 times daily, after meals, based on sliding scale provided Discontinued hydralazine 50 mg Tablet 50 mg PO Q8H PRN (Reason: Blood Pressure) Discharge Orders: Discharge Order (Routine); Ordered 01/04/23 Ordered By: Ryan Kolb Referrals: Josefa Ayers MD [Physician] - 1 week Galo Perez MD [Primary Care Provider] - Discharge Diet: Diabetic Discharge Activity: Resume usual activity Patient Instructions: Opioid Safety Activity Restrictions/Additional Instructions: -For your line this I decreased her dose to 5 units subcu every morning -Please monitor your blood sugars closely -Monitor your blood sugars 3 times daily as after meals -Please record your blood sugars, and a blood sugar log -For your lispro -Please inject blood sugar after meals based on sliding scale provided -Do not inject insulin if you do not eat as hypoglycemia kills -This is a lispro sliding scale -Insulin sliding ?fingerstick? Insulin ?141-180?0 units/sq 181-220?2 units/sq ?221-260?4 units/sq ?261-300 6 units/sq ?301-350?8 units/sq ?351-400 10 units/sq > 400? 12 units/sq -If your blood sugar is greater than 500 go to the emergency room -If your blood sugar is less than 60 or at anytime you feel lightheaded or dizzy or diaphoretic or have chest palpitations check your blood sugar, and eat a hard candy or drink orange juice and go immediately to the emergency room -Remember hypoglycemia kills, so if his blood sugar is less than 60 we have to increase it by taking in a sugary meal such as a hard candy or orange juice and go to the emergency room -If you have any questions please call us where here to help -For your anxiety I discharged you on clonazepam 0.5 mg once daily as needed for anxiety, do not drive or operate heavy machinery or drink or take narcotics or briviact while taking clonazepam due to risk of side effects and respiratory depression -For your breakthrough seizures I have discharged on Keppra 1000 mg twice daily, please follow-up with Dr. Ayers Discharge Attestations Time Spent in Discharge Care*: greater than 30 min Status at Discharge: Cognitive status at discharge: cognitively intact, Behavioral status at discharge: cooperative, Quality Metrics Clinical Quality Measures [ No reported AMI, CVA or VTE this stay] Coding Level of Care Code 47592 Total time (in minutes) for Discharge: 40 Diagnoses Hypertension I10 Constipation K59.00 Nausea R11.0 DM2 (diabetes mellitus, type 2) E11.9 Anxiety F41.9 Atrial fibrillation I48.91 Chronic pancreatitis K86.1 Pancreatitis type: other Hypertensive urgency I16.0 Breakthrough seizure G40.919
[2023-01-04] MEDS: CLONazepam 0.5 mg Tablet PO (09:31)
[2023-01-10 10:44] LABS: Calculated Total (E+NE) 68 mcg/24 h (26-121)
[2023-01-11 04:54] LABS: Metanephrines Total Urine 367 mL; Urine Metanephrines Total 249 mcg/24 h (182-739)
[2023-01-22 12:44] LABS: Calculated Total (E+NE) 252 (9-74); Creatinine, Random Urine 79 mg/dL (20-275); Epinephrine Urine 35 (2-16); Norepinphrine Urine 217 (7-65)
== END 2023-01-04 10:58 | disposition home or self-care (01) | DRG 305 ==
LOC: ER 21:51 → ICU 01-02 02:02 → CSU 01-02 02:44
PROVIDERS: Admitting Provider Internal Medicine; Emergency Provider Emergency Medicine; PCP Family Medicine; Visit Provider Family Medicine
DX: I16.0 Hypertensive urgency (principal); K86.1 Other chronic pancreatitis; E86.0 Dehydration; K59.00 Constipation, unspecified; E11.9 Type 2 diabetes mellitus without complications; F41.9 Anxiety disorder, unspecified; I48.91 Unspecified atrial fibrillation; E27.9 Disorder of adrenal gland, unspecified; G40.909 Epilepsy, unspecified, not intractable, without status epilepticus; G89.29 Other chronic pain; Z79.01 Long term (current) use of anticoagulants; Z90.49 Acquired absence of other specified parts of digestive tract; Z79.4 Long term (current) use of insulin; Z23 Encounter for immunization
CPT/HCPCS: 36415; 36416; 74177; 80048; 80053; 80306; 81001; 82384; 82533; 82570; 82962; 83605; 83690; 83735; 83835; 84443; 84703; 85025; 86140; 90471; 90732; 93005; 96372; 96374; 96375; 96376; 99285; J1170; J1200; J1630; J1644; J1815; J1953; J2060; J2270; J2405; J2765; J3490; J7030; Q9967

== ENCOUNTER → 2023-01-18 14:58 | Outpatient (BNVA) | payer MEDICARE, MEDICAID, SELFPAY | PROVIDERS: PCP Family Medicine; Referring Provider Family Medicine; Visit Provider Psychiatry & Neurology Neurology | DX: G40.909 Epilepsy, unspecified, not intractable, without status epilepticus (principal); R53.1 Weakness; R20.2 Paresthesia of skin; M79.641 Pain in right hand; M79.642 Pain in left hand; I50.9 Heart failure, unspecified; I10 Essential (primary) hypertension; I48.91 Unspecified atrial fibrillation; Z79.01 Long term (current) use of anticoagulants; Z96.651 Presence of right artificial knee joint; Z91.81 History of falling; E11.9 Type 2 diabetes mellitus without complications; Z79.4 Long term (current) use of insulin | CPT/HCPCS: 99204 ==

== ENCOUNTER → 2023-01-25 08:53 | Outpatient (BNVA) | payer MEDICARE, MEDICAID, SELFPAY | PROVIDERS: PCP Family Medicine; Visit Provider Podiatrist Foot & Ankle Surgery | DX: E11.9 Type 2 diabetes mellitus without complications (principal); L60.0 Ingrowing nail; Z79.4 Long term (current) use of insulin | CPT/HCPCS: 11720; 99203 ==

== ENCOUNTER 2023-04-11 19:50 | Emergency (ER) | payer MEDICARE, MEDICAID, SELFPAY ==
[2023-04-11 19:53] VITALS: BMI 36.7
[2023-04-11 19:56] VITALS: BP 147/91; PULSE 107; RESP 16; TEMP 38; O2SAT 97
--- NOTE | 2023-04-11 20:00 | XRR_ITS ---
PROCEDURE INFORMATION: Exam: XR Right Ankle Exam date and time: 04/11/2023 8:08 PM Age: 43 years old Clinical indication: Pain; Ankle; Right; Additional info: Trauma pain TECHNIQUE: Imaging protocol: Radiologic exam of the right ankle. Views: 3 or more views. COMPARISON: 1. Right foot three views 04/11/2023 8:[address] foot RT wo contrast 07/27/2020 11:45 AM FINDINGS: Bones/joints: Acute, mildly displaced fracture of the right lateral malleolus. On the lateral view, there is questionable slight irregularity of the anterior tibial plafond. Ankle mortise appears grossly preserved. Soft tissues: Diffuse soft tissue swelling. XR/XR ankle RT min 3V* [id number] IMPRESSION: 1. Acute, mildly displaced fracture of the right lateral malleolus. 2. On the lateral view, there is questionable slight irregularity of the anterior tibial plafond. Could represent an acute impaction fracture. Consider further evaluation with CT, if clinically indicated. 3. Diffuse soft tissue swelling.
--- NOTE | 2023-04-11 20:00 | XRR_ITS ---
PROCEDURE INFORMATION: Exam: XR Right Foot Exam date and time: 04/11/2023 8:08 PM Age: 43 years old Clinical indication: Pain; Foot; Right; Additional info: Trauma pain TECHNIQUE: Imaging protocol: Radiologic exam of the right foot. Views: 3 or more views. COMPARISON: 1. CR (LOW EXM, ) 04/11/2023 8:[address] foot RT wo con 07/27/2020 11:45 AM FINDINGS: Bones/joints: Acute, mildly displaced fracture of the right lateral malleolus, better seen on the ankle series. Questionable slight irregularity of the anterior plafond of the right distal tibia. Hallux valgus deformity. No obvious disruption of the Lisfranc joint. Soft tissues: Soft tissue swelling around the ankle. XR/XR foot RT min 3V* [id number] IMPRESSION: 1. Acute, mildly displaced fracture of the right lateral malleolus, better seen on the ankle series. 2. Questionable slight irregularity of the anterior plafond of the right distal tibia. Could represent small fracture. Consider further evaluation with CT, if clinically indicated. 3. Soft tissue swelling around the ankle.
--- NOTE | 2023-04-11 20:16 | ED_ITS ---
HPI - Extremity Problem General: Chief complaint: Extremity Injury, Lower Stated complaint: foot pain Time Seen by Provider: 04/11/23 19:54 History of Present Illness: Patient presents ER today with complaints of right ankle and foot pain secondary to falling down postseizure. Patient was given fentanyl in route with pain reduction. Patient is noted to have slight swelling at the ankle and palpable pulses. Before the fall patient did not have any foot or ankle pain. At this t amauri patient denies any other pain or complaints. 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 Diabetes Epilepsy Essential (primary) hypertension Exocrine pancreatic insufficiency GI bleed Labile hypertension Primary osteoarthritis Surgical History History of bilateral knee replacement History of cholecystectomy History of D&C History of foot surgery closing wedge History of knee replacement procedure of right knee done twice 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 Family History Grandmother Cancer Lung disease Stroke Mother Lung disease Other A-fib CHF (congestive heart failure) Social History Smoking and tobacco status: never smoked Alcohol intake: never Substance/Drug Use: never Household members: spouse Housing: House Marital status: Current occupational status: disabled Female Reproductive History: Date of last menstrual period: 04/04/23 Physical Exam Const: COMMON NORMALS: no acute distress, average body habitus, patient oriented x3, no limitations, healthy appearing, alert and well nourished HENMT: COMMON NORMALS: normocephalic, atraumatic, hearing grossly normal bilaterally, external ears normal, Normal external nose present and moist oral mucous membranes HEAD & SCALP: normocephalic and atraumatic NOSE: Normal external nose present EXTERNAL EAR: Yes external ears normal Neck/C-Spine: COMMON NORMALS: full ROM, no lymphadenopathy, supple, no meningeal signs, no JVD and Thyroid normal THYROID: Thyroid normal Chest: COMMONS NORMALS: normal inspection of the chest and normal palpation of entire chest wall Resp: COMMON NORMALS: normal respiratory effort, No retractions, No use of accessory muscles and clear to auscultation bilaterally AUSCULTATION: clear to auscultation bilaterally Cardio: COMMON NORMALS: no JVD, regular rate, regular rhythm, S1 normal heart sound present, S2 normal heart sound present, No gallops present (Cardio), No clicks present (Cardio), No murmurs present (Cardio) and No rub (Cardio) RATE: regular rate RHYTHM: regular rhythm HEART SOUNDS: S1 normal heart sound present and S2 normal heart sound present GI: COMMON NORMALS: Normal to inspection, nondistended, normoactive bowel sounds present, Soft to palpation, non-tender, No hepatosplenomegaly present and no masses PALPATION: Yes Soft to palpation and Yes No hepatosplenomegaly present Extremity: NARRATIVE EXTREMITY EXAM: Mild swelling and pain with palpation over right ankle and foot region. Neuro: COMMON NORMALS: patient oriented x3 SENSORIUM/ORIENTATION: Yes alert MENINGEAL SIGNS: Yes no meningeal signs Course Vital Signs: Vital signs: Vital Signs Temperature 100.4 F H 04/11/23 19:56 Pulse Rate 107 H 04/11/23 19:56 Respiratory Rate 18 04/11/23 20:30 Blood Pressure 147/91 04/11/23 19:56 Pulse Oximetry 97 04/11/23 19:56 Oxygen Delivery Me thod Room Air 04/11/23 19:56 MDM - Extremity (Nontraumatic) Medical Decision Making Patient presents to the ER after complaining of having a seizure and falling down and hurting her right ankle. X-ray was obtained which showed acute mildly displaced fracture of the right lateral malleolus. With questionable slight irregularity of the anterior tibial plafond. Patient be placed in OCL type splint and referred to orthopedic surgery for follow-up. Patient be discharged from the ER patient already has pain medicine at home. Differential Diagnosis Unlikely herpes zoster, gout, cellulitis, superficial thrombophlebitis, deep venous thrombosis of upper extremity, lower extremity edema or deep vein thrombosis of lower extremity Medical Records I reviewed the patient's medical records. Lab Data I reviewed the patient's lab results. Radiology Impressions Ankle X-Ray 04/11/23 20:00 IMPRESSION: 1. Acute, mildly displaced fracture of the right lateral malleolus. 2. On the lateral view, there is questionable slight irregularity of the anterior tibial plafond. Could represent an acute impaction fracture. Consider further evaluation with CT, if clinically indicated. 3. Diffuse soft tissue swelling. Foot X-Ray 04/11/23 20:00 IMPRESSION: 1. Acute, mildly displaced fracture of the right lateral malleolus, better seen on the ankle series. 2. Questionable slight irregularity of the anterior plafond of the right distal tibia. Could represent small fracture. Consider further evaluation with CT, if clinically indicated. 3. Soft tissue swelling around the ankle. Discharge Plan Discharge Patient Disposition: Home Clinical Impression: Ankle fracture Qualifiers: Encounter type: initial encounter Fracture type: closed Laterality: right Qualified Code(s): S82.891A - Other fracture of right lower leg, initial encounter for closed fracture Condition: Stable Prescriptions: No Action (DME) STANDARD WHEELCHAIR See Rx Instructions .Route .MEDSUPPLY Qty: 1 0RF Rx Instructions: As directed (DME) blood-glucose meter [OneTouch Ultra2 Meter] Misc See Rx Instructions .Route Qty: 1 0RF Rx Instructions: As directed (DME) lancets [OneTouch UltraSoft Lancets] Misc See Rx Instructions .Route Qty: 200 2RF Rx Instructions: As directed potassium chloride 20 mEq tablet extended release 20 meq PO DAILY Qty: 90 0RF lactulose 10 gram/15 mL (15 mL) solution 10 g PO DAILY PRN (Reason: constipation) Qty: 600 0RF diazepam [Valium] 10 mg tablet 10 mg PO BID PRN (Reason: anxiety) Qty: 2 0RF Rx Instructions: Take one tab one hour prior to apt then one tab at arrival of apt Briviact 25 mg tablet 25 mg PO DAILY Qty: 60 3RF morphine 30 mg tablet extended release 30 mg PO Q12H 30 Days Qty: 60 0RF Rx Instructions: at 0800/2000 Lantus Solostar U-100 Insulin 100 unit/mL (3 mL) insulin pen 20 unit SUBCUT BID 30 Days Qty: 15 0RF zolpidem 5 mg tablet 5 mg PO BEDTIME PRN (Reason: Sleep) Qty: 30 3RF ferrous sulfate [Feosol] 325 mg (65 mg iron) tablet 325 mg PO .every other day 90 Days Qty: 60 1RF Zenpep 40,000-126,000- 168,000 unit capsule,delayed release(DR/EC) 1 cap PO TID Qty: 90 8RF Rx Instructions: administer with meals and/or snacks (DME) OneTouch Ultra Test Strip See Rx Instructions .ROUTE .MEDSUPPLY Qty: 100 1RF Rx Instructions: As directed docusate sodium 283 mg/5 mL enema 283 mg PA DAILY Qty: 150 1RF ondansetron HCl 4 mg tablet 4 mg PO Q8H PRN (Reason: nausea and vomiting) Qty: 20 2RF furosemide 20 mg tablet 20 mg PO DAILY PRN (Reason: edema) Qty: 30 0RF tizanidine 4 mg tablet 8 mg PO TID PRN (Reason: muscle spasticity) 30 Days Qty: 180 3RF (DME) lancets [OneTouch Delica Plus Lancet] 33 gauge misc See Rx Instructions .Route Qty: 100 3RF Rx Instructions: Test fasting in am, and hours after each meal pantoprazole 40 mg tablet,delayed release (DR/EC) 40 mg PO BID@08,20 Qty: 90 3RF Eliquis 5 mg tablet 5 mg PO BID Qty: 120 3RF diphenhydramine HCl [Benadryl] 25 mg Capsule 25 mg PO Q6H PRN (Reason: Allergy Symptoms) polyethylene glycol 3350 [Miralax] 17 gram/dose Powder 17 g PO QAM PRN (Reason: Constipation) insulin lispro 100 unit/mL insulin pen See Rx Instructions .ROUTE .COMPLEX 30 Days Qty: 15 0RF Rx Instructions: Inject, subcu, 3 times daily, after meals, based on sliding scale provided prochlorperazine maleate 10 mg tablet 10 mg PO Q8H PRN (Reason: Nausea And Vomiting) isosorbide mononitrate 30 mg Tablet Extended Release 24 Hr 15 mg PO DAILY spironolactone 25 mg Tablet 25 mg PO DAILY carvedilol 12.5 mg tablet 25 mg PO BID Qty: 60 2RF Discharge Orders: Discharge ED (Routine); Ordered 04/11/23 Ordered By: José Miguel Javier Referrals: Galo Perez MD [Primary Care Provider] - 1 week Patient Instructions: Ankle Fracture (DC), Opioid Safety, Pain Management Activity Restrictions/Additional Instructions: Please wear your splint at all times. Please be nonweightbearing to the right ankle. You have been referred to case management. They will make an appointment for you to see the orthopedic surgeon for your fracture. If you have not heard from them in 2-3 business days please feel free to call back. Otherwise follow-up with your primary care doctor in approximately 1 week for further evaluation and treatment. Coding Level of Care Code ED Production Support Developer for Heather Roman
[2023-04-11 20:30] VITALS: RESP 18
[2023-04-11] MEDS: morphine 4 mg/mL SDV 1 mL IVP ×2 (20:30→22:00)
[2023-04-11 22:00] VITALS: RESP 20
[2023-04-11 22:19] VITALS: BP 134/105; RESP 20
--- NOTE | 2023-04-12 09:25 | DCPLANNER ---
Addendum entered by Christina Drake 04/12/23 14:44: Patient had a follow up appointment scheduled for at ortho - patient did attend appointment. Original Note: biofuels technology development manager had message to schedule a follow up appointment for patient with ortho. biofuels technology development manager sent patients information to the front office staff at ortho. Patients information will be printed and reviewed. Clinic will call patient with appointment information.
== END 2023-04-11 22:20 | disposition home or self-care (01) ==
PROVIDERS: Emergency Provider Emergency Medicine; PCP Family Medicine
DX: S82.61XA Displaced fracture of lateral malleolus of right fibula, initial encounter for closed fracture (principal); E11.9 Type 2 diabetes mellitus without complications; I10 Essential (primary) hypertension; G40.909 Epilepsy, unspecified, not intractable, without status epilepticus; Z79.4 Long term (current) use of insulin; Z79.01 Long term (current) use of anticoagulants; Z79.899 Other long term (current) drug therapy; W19.XXXA Unspecified fall, initial encounter
CPT/HCPCS: 29515; 73610; 73630; 96374; 96376; 99284; J2270

== ENCOUNTER → 2023-04-12 14:42 | Outpatient (BNVA) | payer MEDICARE, MEDICAID, SELFPAY | PROVIDERS: PCP Family Medicine; Visit Provider Podiatrist Foot & Ankle Surgery | DX: S82.841A Displaced bimalleolar fracture of right lower leg, initial encounter for closed fracture (principal); W19.XXXA Unspecified fall, initial encounter; Y92.009 Unspecified place in unspecified non-institutional (private) residence as the place of occurrence of the external cause; E11.8 Type 2 diabetes mellitus with unspecified complications; Z79.4 Long term (current) use of insulin | CPT/HCPCS: 29515; 99205 ==

== ENCOUNTER 2023-04-15 07:13 | Day surgery (SDC) | payer MEDICARE, MEDICAID, SELFPAY ==
[2023-04-14 09:29] VITALS: BMI 36.7
[2023-04-15] VITALS (11 sets, daily range): BP systolic 103–123; BP diastolic 55–90; PULSE 78–88; RESP 13–20; TEMP 36.1–37; O2SAT 93–100
--- NOTE | 2023-04-15 | XR_ITS ---
WS: [id number] Right ankle, C-arm fluoroscopy views, 04/15/2023 Clinical Data: ORIF ANKLE Comparison: Right ankle, 04/11/2023 Findings: Dr. Navarrete reduced the fracture of the distal right fibula with a lateral plate and screws. XR/XR ankle RT 2V 35827 Impression: Internal fixation of distal right fibular fracture.
[2023-04-15] MEDS: sodium chloride 0.9% 1,000 ML 30 ML IV (07:46)
[2023-04-15 07:48] LABS: OR HCG Qualitative Urine Negative (Negative)
--- NOTE | 2023-04-15 07:52 | P.ANESASSM_ITS ---
Pre-Anesthetic Assessment Height/Weight: Height 1.52 m Weight 85.275 kg Temp Pulse Resp BP Pulse Ox O2 Del Method 98.6 F 84 18 119/71 95 Room Air 04/15/23 07:20 04/15/23 07:20 04/15/23 07:20 04/15/23 07:20 04/15/23 07:20 04/15/23 07:41 Preop Diagnosis: Right ankle fracture Operation Date: 04/15/23 08:50 Proposed Procedures p Open reduction internal fixation right bimalleolar fracture 00415(Right) - Roderick Navarrete DPM Familial anesthetic complications: None Was Beta Julio César taken within 24 hours: Yes Was Clonidine taken within 24 hours: N/A Last intake: Intake Last Liquid Date 04/14/23 Last Liquid Time 23:45 Last Solid Date 04/14/23 Last Solid Time 23:45 Social No alcohol and No tobacco Exam alert, oriented x 3, clear to auscultation bilaterally and regular rate & rhythm Airway Mallampati: Class III Dentition: other (no teeth) CV/HEM Atrial Fibrillation and Hypertension HOCM GI pancreatitis Metabolic Diabetes Mellitus and Morbid Obesity Neuropsych Seizure Anesthetic Plan ASA status: 4 Anesthesia: General and Regional (specify below) Risk of > 500 ml blood loss (7ml/kg in children): No Medications/Allergies Home Medications Medication Instructions Recorded Confirmed Last Taken Type STANDARD WHEELCHAIR #1 ea 05/29/21 04/14/23 Unknown Rx diphenhydramine HCl 25 mg capsule 25 mg PO Q6H PRN Allergy Symptoms 10/26/21 04/15/23 04/14/23 History (Benadryl) isosorbide mononitrate 30 mg 15 mg PO DAILY 08/21/22 04/14/23 04/14/23 History tablet,extended release 24 hr spironolactone 25 mg tablet 25 mg PO DAILY 08/21/22 04/14/23 04/14/23 History carvedilol 12.5 mg tablet 25 mg PO BID #60 tabs 08/22/22 04/14/23 04/15/23 Rx blood sugar diagnostic (SocialGlimpzTouch #100 ea 09/06/22 04/14/23 Unknown Rx Ultra Test strips) blood-glucose meter (OneTouch #1 ea 12/08/22 04/14/23 Unknown Rx Ultra2 Meter) lancets (SocialGlimpzTouch UltraSoft #200 ea 12/08/22 04/14/23 Unknown Rx Lancets) lactulose 10 gram/15 mL (15 mL) 10 g (15 mL) PO DAILY PRN 12/22/22 04/14/23 Unknown Rx oral solution constipation #600 mL potassium chloride 20 mEq 20 meq PO DAILY #90 tabs 12/22/22 04/14/23 04/14/23 Rx tablet,extended release insulin lispro 100 unit/mL See Rx Instructions .Route 01/04/23 04/14/23 04/14/23 Rx subcutaneous pen .COMPLEX 30 days #15 mL insulin glargine 100 unit/mL (3 20 unit (0.2 mL) SUBCUT BID 30 01/05/23 04/14/23 04/13/23 Rx mL) subcutaneous pen ( days #15 mL Solostar U-100 Insulin) zolpidem 5 mg tablet 5 mg PO BEDTIME PRN Sleep #30 tabs 01/05/23 04/15/23 04/14/23 Rx furosemide 20 mg tablet 20 mg PO DAILY PRN edema #30 tabs 02/09/23 04/15/23 04/08/23 Rx diazepam 10 mg tablet (Valium) 10 mg PO BID PRN anxiety #2 tabs 02/10/23 04/14/23 Unknown Rx tizanidine 4 mg tablet 8 mg PO TID PRN muscle spasticity 03/07/23 04/15/23 04/14/23 Rx 30 days #180 tabs brivaracetam 25 mg tablet 25 mg PO DAILY #60 tabs 04/06/23 04/14/23 04/14/23 Rx (Briviact) morphine 30 mg tablet,extended 30 mg PO Q12H 1 month #60 tabs 04/06/23 04/14/23 04/14/23 Rx release apixaban 5 mg tablet (Eliquis) 5 mg PO BID #120 tabs 04/07/23 04/14/23 04/12/23 Rx lancets 33 gauge (OneTouch Delica #100 ea 04/07/23 04/14/23 Unknown Rx Plus Lancet) pantoprazole 40 mg tablet,delayed 40 mg PO BID@08,20 #90 tabs 04/07/23 04/14/23 04/14/23 Rx release hydrocodone 5 mg-acetaminophen 325 1 tab PO Q6H PRN pain 3 days #12 04/12/23 04/15/23 04/15/23 Rx mg tablet tabs scopolamine base 1 mg over 3 days 1 patch transdermal ONCE PRN 04/12/23 04/14/23 04/14/23 Rx transdermal patch nausea and vomiting 1 day #1 ea [id number] 1 cap PO TIDWMEAL 04/14/23 04/14/23 04/14/23 History 40,000-126,000-168,000 unit capsule, delay rel (Zenpep) Allergies Allergy/AdvReac Type Severity Reaction Status Date / Time canagliflozin [From Invokana] Allergy Severe abdominal Verified 04/15/23 07:29 pain enalaprilat Allergy Severe tongue Verified 04/15/23 07:29 swelling aspirin Allergy Unknown Verified 04/15/23 07:29 ketorolac [From Toradol] Allergy Unknown Verified 04/15/23 07:29 nicardipine Allergy ALGY-Difficulty Verified 04/15/23 07:29 Breathing tramadol [From Ultram] Allergy Unknown Verified 04/15/23 07:29 Current Medications Generic Name Dose Route Start Last Admin Trade Name Freq PRN Reason Stop Dose Admin Sodium Chloride 1,000 mls @ 30 mls/hr 04/15/23 07:30 04/15/23 07:46 Sodium Chloride 0.9% IV 04/16/23 07:29 30 mls/hr .Q24H LEANDRA Administration PFSH Anesthesia Medical History Adrenal mass Aortic regurgitation Atrial fibrillation with RVR Bicuspid aortic valve Chronic pain of lower extremity, bilateral Chronic pancreatitis 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 Diabetes Epilepsy Essential (primary) hypertension Exocrine pancreatic insufficiency GI bleed Labile hypertension Primary osteoarthritis Surgical History History of bilateral knee replacement History of cholecystectomy History of D&C History of foot surgery closing wedge History of knee replacement procedure of right knee done twice 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 Family History Grandmother Cancer Lung disease Stroke Mother Lung disease Other A-fib CHF (congestive heart failure) Social History Smoking and tobacco status: never smoked Alcohol intake: never Substance/Drug Use: never Household members: spouse Housing: House Marital status: Current occupational status: disabled Female Reproductive History Date of last menstrual period: 03/31/23 Data Anesthesia Cardiac Studies: Echocardiogram 10/27/21 Echocardiogram Ultrasound 10/20/20 Transesophageal Echocardiogram 11/17/21
[2023-04-15 07:57] LABS: Glucose Point of Care 217 mg/dL (70-110)
--- NOTE | 2023-04-15 08:31 | ANES.PROC ---
Anesthesia Procedures Procedure/Date: 04/15/23 Nerve Block ^: Nerve Block 1: Main Anesthesia: general anesthesia Time Out Performed: Yes Consent: requested by attending/covering physician, from patient, from other, risks and benefits reviewed and patient agrees to proceed Nerve block location: popliteal (R) Anesthesia monitors applied: pulse oximetry, EKG, BP cuff and oxygen Nerve block position: supine Anesthetic Used: ropivicaine 0.5% (30 ml) and with decadron (4 mg) Ultrasound used to: recognize landmarks Nerve Stimulator Used?: No Interscalene/Femoral BLK: 4 stimuplex 21 g needle used for position and inplane approach, visualize local anesthetic spread and no vascular puncture identified Injection: neg aspiration of heme Patient Tolerated Procedure: well and no complications
--- NOTE | 2023-04-15 08:57 | W.PM.OPSUD ---
Surgery/Procedure H&P Update DATE OF PROCEDURE: April 15, 2023 DATE H&P PERFORMED: 04/12/23 CHANGES TO PREVIOUS DOCUMENTATION: None PREOP DIAGNOSIS: Right ankle fracture PLANNED PROCEDURE: Operation Date: 04/15/23 08:50 Proposed Procedures p Open reduction internal fixation right bimalleolar fracture 13525(Right) - Roderick Navarrete DPM
--- NOTE | 2023-04-15 09:06 | ECG_ITS ---
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 Measurements Intervals [place] Rate: 81 P: 53 DE: 171 QRS: -9 QRSD: 70 T: 2 QT: 346 QTc: 402 Interpretive Statements SINUS RHYTHM POSSIBLE LEFT ATRIAL ENLARGEMENT [-0.1mV P-WAVE IN V1/V2] POSSIBLE LEFT VENTRICULAR HYPERTROPHY [VOLTAGE CRITERIA PLUS LAE OR QRS WIDENING] INFERIOR MYOCARDIAL INFARCTION , OF INDETERMINATE AGE [40+ ms Q WAVE AND/OR ST/T ABNORMALITY IN II/aVF] Compared to ECG 01/01/2023 21:30:24 Short DE interval no longer present Myocardial infarct finding still present Electronically Signed On 04-15-2023 11:29:00 CDT by Sola Espitia M.D. [email or web address]
[2023-04-15] MEDS: ceFAZolin 2,000 MG in sodium chloride 0.9% (plus) 50 ML 100 MG IV (09:26)
--- NOTE | 2023-04-15 10:17 | PM.OP ---
Operative Report Date of procedure: April 15, 2023 Pre-op diagnosis: Equivalent right bimalleolar ankle fracture Post-op diagnosis: Equal right bimalleolar ankle fracture Post-op findings: Intact syndesmosis tested intraoperatively under live fluoroscopy after ORIF of distal fibula. Tested via cotton hook test. Syndesmosis was intact. Procedure done: Open reduction internal fixation right bimalleolar fracture. CPT code 61831 Implants: [place] anatomic fibular plate Marcelino 3.5 mm locking and nonlocking screws 2-0 Vicryl 3-0 Vicryl Skin ankita Specimens removed/disposition: None Pathology: None Surgeon: Roderick Navarrete D.P.M. Grain Cleaner: Bonny Mcnamara Estimated blood loss: 5 30 IV fluids: 0 Urine output: None Complications: None Findings: Syndesmosis intact. Brief History: Right bimalleolar fracture occurred from having a seizure while at home date of injury 04/11/2023, presented to the emergency department. Was splinted and remain nonweightbearing. Discussed surgical versus nonsurgical treatment options. Patient wishes to proceed with surgery feels that she would be better off with rigid internal fixation given her seizure history she is concerned that she will cause further injury to herself. I reviewed at length with the patient, the risks, potential complications, benefits, alternatives, expectations, and typical outcomes associated with the surgery. The risks and potential complications were explained in detail, including but not limited to infection, wound dehiscence or soft tissue complications, bleeding and hematoma, chronic edema, neuritis or nerve damage producing numbness or chronic pain, CRPS, failure to relieve pain or worsening pain, thick / painful / unsightly scar, limited motion / stiffness, malposition, delayed union, malunion, or nonunion, fracture, reaction to implants, anesthetic complications, venous thromboembolism, and deformity recurrence. I discussed the notion of no regrets with the patient as it pertains to complications and outcomes. The patient seemed to understand the nature of the proposed care and required convalescence. They asked appropriate questions, answered to their satisfaction. They are aware no guarantees can be made as to a satisfactory outcome and they understand there may be other possible unforeseen complications or outcomes not listed here that will be treated accordingly if they arise. There were no written or implied guarantees given to the patient. They gave informed consent to proceed. Procedure: Under mild sedation the patient was brought to the operating room and placed onto the operating table in supine position. A timeout was performed. Anesthesia was then administered by the anesthesia service. Local anesthesia was injected by myself consisting of 5 cc of 0.5% Marcaine plain in a right saphenous nerve block fashion. Well-padded pneumatic tourniquet was applied to the right high calf. The right lower extremity was scrubbed, prepped and draped utilizing normal aseptic technique. The right lower extremity was then exanguinated with an Esmarch bandage and a tourniquet inflated to 250 mmHg. The right distal fibula is palpated. Directly adjacent to the distal fibula a linear longitudinal incision was made through skin with a #15 blade with dissection carried down through subcutaneous tissue to the layer of periosteum utilizing a combination of sharp and blunt technique. Care was taken to retract and protect neurovascular and tendinous structures. All bleeders were ligated and cauterized as necessary. Fibular fracture was identified this was distracted and curettaged of hematoma followed by saline flush. This was then temporary reduced and stabilized utilizing [id number] fracture reduction forceps. Next utilizing standard AO technique a [place] anatomic fibular plate was utilized to provide rigid fixation with excellent bony apposition and compression noted. The AP, oblique and lateral view of intraoperative C-arm confirmed that hardware did not violate the ankle mortise. Ankle mortise was congruent post reduction and fixation. The fibula was pulled out to length and derotated. Smooth range of motion was appreciated intraoperatively without crepitus at the right ankle. Cotton hook test confirmed syndesmosis intact under live fluoroscopy. The incision was irrigated with copious amounts of Staticin solution. This was a bimalleolar equivalent as the medial malleolus had an avulsion fracture and soft tissue injury. After having fixated the fibula the ankle mortise was congruent without gaping or widening of the medial gutter. Further irrigation was performed with saline solution followed by layered closure with periosteum reapproximated with 2-0 Vicryl. Subcutaneous tissue reapproximated with 3-0 Vicryl and skin with skin ankita. The incision was dressed with Adaptic, sterile 4 x 4's, Kerlix and Raudel wrap followed by application of a cam boot to the right lower extremity. Tourniquet was deflated and a prompt hyperemic response was noted to the distal digits of the right foot. Patient tolerated the procedure well and was transferred to the PACU with vital signs stable and vascular status intact. Following a period of postoperative monitoring she will be discharged home. It remain strict nonweightbearing to the right lower extremity elevate right foot while resting. She was provided a prescription for pain medication to be taken judiciously as needed for pain. Patient will resume her anticoagulant therapies the morning after surgery 04/16/2023. Was given at home care instructions as well as scheduled follow-up and my cell phone number to contact with any postoperative questions or concerns.
[2023-04-15] MEDS: fentaNYL 50 mcg/mL INJ 2mL 100 MCG IVP (10:59)
[2023-04-15] MEDS: HYDROcodone-acetaminophen 10-325 mg Tablet 1 TAB PO (11:21)
--- NOTE | 2023-04-15 11:30 | ANE.PACU2 ---
Inpatient post-anesthesia follow up: Airway intact: Yes Vital signs: Temperature 97.8 F Pulse Rate 82 Respiratory Rate 18 Blood Pressure 107/74 Pulse Oximetry 94 Oxygen Delivery Me thod Room Air Oxygen Flow Rate 6 Fraction of Inspir ed Oxygen Hydration adequate: Yes Nausea and vomiting: No Pain level: 1 Mental status: Baseline
== END 2023-04-15 11:50 | disposition home or self-care (01) ==
PROVIDERS: PCP Family Medicine; Visit Provider Podiatrist Foot & Ankle Surgery
PROC: (CPT 27814; principal; 2023-04-15 08:40)
DX: S82.841A Displaced bimalleolar fracture of right lower leg, initial encounter for closed fracture (principal); I48.91 Unspecified atrial fibrillation; I10 Essential (primary) hypertension; E11.9 Type 2 diabetes mellitus without complications; E66.01 Morbid (severe) obesity due to excess calories; Z68.36 Body mass index [BMI] 36.0-36.9, adult; Z79.4 Long term (current) use of insulin; Z79.01 Long term (current) use of anticoagulants; G40.909 Epilepsy, unspecified, not intractable, without status epilepticus; X58.XXXA Exposure to other specified factors, initial encounter
CPT/HCPCS: 27814; 36416; 73600; 76000; 81025; 82962; 84703; 93005; C1713; J0690; J1100; J2405; J2704; J2795; J3010; J3490; J7030

== ENCOUNTER → 2023-04-22 10:46 | Outpatient (BNVA) | payer MEDICARE, MEDICAID, SELFPAY | PROVIDERS: PCP Family Medicine; Visit Provider Podiatrist Foot & Ankle Surgery | DX: L60.0 Ingrowing nail (principal); X58.XXXA Exposure to other specified factors, initial encounter; Z98.890 Other specified postprocedural states; Z87.81 Personal history of (healed) traumatic fracture; S82.841A Displaced bimalleolar fracture of right lower leg, initial encounter for closed fracture | CPT/HCPCS: 73610; 99024 ==

== ENCOUNTER → 2023-04-28 14:44 | Outpatient (BNVA) | payer MEDICARE, MEDICAID, SELFPAY | PROVIDERS: PCP Family Medicine; Visit Provider Podiatrist Foot & Ankle Surgery | DX: S82.841A Displaced bimalleolar fracture of right lower leg, initial encounter for closed fracture (principal); Z98.890 Other specified postprocedural states; Z87.81 Personal history of (healed) traumatic fracture; X58.XXXA Exposure to other specified factors, initial encounter | CPT/HCPCS: 73610; 99024 ==

== ENCOUNTER → 2023-05-12 13:06 | Outpatient (BNVA) | payer MEDICARE, MEDICAID, SELFPAY | PROVIDERS: PCP Family Medicine; Visit Provider Podiatrist Foot & Ankle Surgery | DX: Z98.890 Other specified postprocedural states (principal); Z87.81 Personal history of (healed) traumatic fracture; S82.841D Displaced bimalleolar fracture of right lower leg, subsequent encounter for closed fracture with routine healing; X58.XXXD Exposure to other specified factors, subsequent encounter | CPT/HCPCS: 73610; 99024 ==

== ENCOUNTER → 2023-06-13 10:56 | Outpatient (BNVA) | payer MEDICARE, MEDICAID, SELFPAY | PROVIDERS: PCP Family Medicine; Visit Provider Podiatrist Foot & Ankle Surgery | DX: Z98.890 Other specified postprocedural states (principal); Z87.81 Personal history of (healed) traumatic fracture; S82.841A Displaced bimalleolar fracture of right lower leg, initial encounter for closed fracture; X58.XXXA Exposure to other specified factors, initial encounter; Z47.89 Encounter for other orthopedic aftercare; S82.841D Displaced bimalleolar fracture of right lower leg, subsequent encounter for closed fracture with routine healing; X58.XXXD Exposure to other specified factors, subsequent encounter | CPT/HCPCS: 73610; 97760; 99024; L1902 ==

== ENCOUNTER 2023-06-13 11:54 | Outpatient (CLI) | payer MEDICARE, MEDICAID, SELFPAY | END 2023-06-13 11:55 | disposition home or self-care (01) | LOC: SPT 11:55 | PROVIDERS: PCP Family Medicine; Visit Provider Podiatrist Foot & Ankle Surgery | DX: Z47.89 Encounter for other orthopedic aftercare (principal); S82.841D Displaced bimalleolar fracture of right lower leg, subsequent encounter for closed fracture with routine healing; X58.XXXD Exposure to other specified factors, subsequent encounter | CPT/HCPCS: 97760; 99024; L1902 ==

== ENCOUNTER → 2023-11-10 10:04 | Outpatient (BNVA) | payer MEDICARE, MEDICAID, SELFPAY | PROVIDERS: PCP Family Medicine; Visit Provider Family Medicine | DX: Z32.00 Encounter for pregnancy test, result unknown (principal); K85.90 Acute pancreatitis without necrosis or infection, unspecified; E11.69 Type 2 diabetes mellitus with other specified complication; Z79.4 Long term (current) use of insulin | CPT/HCPCS: 80053; 83036; 83690; 84702; 85025 ==

== ENCOUNTER 2024-03-06 13:35 | Outpatient (CLI) | payer MEDICARE, MEDICAID, SELFPAY ==
--- NOTE | 2024-03-06 14:00 | USCV_ITS ---
Eleanor Ragland Age: 44 Gender: F : 1980 Exam Date: 03/06/2024 13:52 Ordering Phys: Galo Perez MD Technologist: MATTIE Exam Location: [facility] Indication: IHSS BP: 138 / 85 HR: 59 Rhythm: Sinus Technical Quality: Adequate MEASUREMENTS (Male / Female) Normal Values 2D ECHO LV Diastolic Diameter PLAX 3.8 cm 4.2 - 5.9 / 3.9 - 5.3 cm IVS Diastolic Thickness 1.8 cm 0.6 - 1.0 / 0.6 - 0.9 cm IVS Systolic Thickness 2.6 cm LVPW Diastolic Thickness 1.7 cm 0.6 - 1.0 / 0.6 - 0.9 cm LVPW Systolic Thickness 2.3 cm LVOT Diameter 2.0 cm LV Ejection Fraction 2D Teich 77.4 % LV Ejection Fraction MOD 2C 74.5 % LV Ejection Fraction 2C AL 75.5 % LA Diameter 4.2 cm RA Systolic Volume 4C AL 18.8 ml RA Systolic Volume 4C MOD 18.3 ml LA Sys Volume AL 36.4 cm cubed LA Sys Volume Index AL 20.0 cm cubed/m squared Aorta at Sinotubular Diameter 2.2 cm M-MODE LA Ao Ratio MM 1.0 AV Cusp Separation MM 2.0 cm DOPPLER AV Peak Velocity 314.0 cm/s AV Area Cont Eq vti 2.8 cm squared AV Area Cont Eq pk 2.7 cm squared MV Peak Velocity 133.0 cm/s MV Area PHT 5.1 cm squared Mitral E to A Ratio 1.4 TR Peak Velocity 121.0 cm/s TR Peak Gradient 5.9 mmHg TR Mean Velocity 96.0 cm/s TR Mean Gradient 4.2 mmHg TR Velocity Time Integral 35.5 cm TV Peak E Velocity 38.0 cm/s Right Atrial Pressure 3.0 mmHg Pulmonary Artery Systolic Pressu 8.9 mmHg PV Peak Velocity 100.0 cm/s RV Ejection Time 0.3 s FINDINGS Left Ventricle Moderate left ventricular hypertrophy with more prominent septal thickening. LV systolic function is normal with EF 60 to 65%. No regional wall motion abnormalities are seen. Right Ventricle Normal in size and function Right Atrium Normal in size Left Atrium Normal in size Mitral Valve Structurally normal mitral valve. Mild mitral regurgitation. Aortic Valve Aortic valve is thickened. Likely bicuspid aortic valve. Mild aortic stenosis with aortic valve area of 1.39 cm2 and mean gradient of 16 mmHg. Elevated LVOT gradient with peak gradient of 35mmHg. Moderate aortic regurgitation. Tricuspid Valve Insufficient TR jet to calculate RVSP Pulmonic Valve Trace pulmonic regurgitation Pericardium Normal Aorta Normal in size IVC Appears to be normal CONCLUSIONS Moderate left ventricular hypertrophy with more prominent septal thickening LV systolic function is normal with EF of 60 to 65%. Mild mitral regurgitation Likely bicuspid aortic valve. Mild aortic stenosis. Moderate aortic regurgitation. Elevated LVOT gradient Compared to prior echocardiogram from 2021, no significant changes are seen. Rahul Zambrano MD (Electronically Signed) Final Date: 16 March 2024 20:19 S
== END 2024-03-06 13:36 | disposition home or self-care (01) ==
LOC: RAD 13:36
PROVIDERS: PCP Family Medicine; Visit Provider Family Medicine
DX: I42.1 Obstructive hypertrophic cardiomyopathy (principal); I08.0 Rheumatic disorders of both mitral and aortic valves; Z95.2 Presence of prosthetic heart valve
CPT/HCPCS: 80053; 83036; 84439; 84443; 85025; 93306

== ENCOUNTER 2024-04-16 05:58 | Inpatient (IN) | payer MEDICARE, MEDICAID, SELFPAY ==
[2024-04-16] VITALS (91 sets, daily range): BP systolic 65–211; BP diastolic 50–157; PULSE 88–150; RESP 11–43; TEMP 37.7–38.2; O2SAT 93–100; BMI 29.2
--- NOTE | 2024-04-16 06:06 | ED_ITS ---
HPI - Chest Pain 2 General: Chief Complaint: Chest Pain Stated Complaint: CP Time Seen by Provider: 04/16/24 06:05 Source: patient Mode of arrival: ambulatory History of Present Illness: 44-year-old female presents emergency ro om initial complaint is for chest pain although when I talk to her she is complaining more of abdominal pain. She tells me that her pancreas is inflamed however she refers most of her pain to her right upper quadrant. She has been having bilious vomit overnight symptoms have progressively been worsening. She denies any hematochezia melena hematemesis or coffee-ground emesis. She does have a known history of bicuspid aortic valve and is a very strong murmur with a displaced PMI. Additionally is diabetic. She received 1 nitroglycerin and route as well as 4 mg of Zofran from EMS that does not seem to help much. MD complaint: chest pain Pertinent past history: other (Bicuspid aortic valve) Onset (ago): day(s) Timing of current episode: constant Prior episodes: Yes Relieving factors: nothing Exacerbating factors: eating Associated symptoms: Reports abdominal pain, nausea and vomiting; Deny diaphoresis, dyspnea, fever(s), leg edema, palpitations, sense of impending doom or syncope Treatment prior to arrival: nitroglycerin Review of Systems 2 Const: Denies: fever(s), chills or diaphoresis Card: Reports: chest pain and irregular heart rhythm; Denies: palpitations or syncope Resp: Denies: dyspnea GI: Reports: abdominal pain, nausea and vomiting : Denies: dysuria, urinary frequency or urinary urgency Musc: Denies: neck pain or back pain Skin/Breast: Denies: rash PFSH ED 2 PFSH: Medical History Atrial fibrillation with RVR Bicuspid aortic valve Aortic regurgitation Labile hypertension Exocrine pancreatic insufficiency GI bleed Adrenal mass Chronic pancreatitis Epilepsy Primary osteoarthritis Diabetes Essential (primary) hypertension 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 Chronic pain of lower extremity, bilateral Congenital hip dysplasia Surgical History History of knee replacement procedure of right knee done twice History of foot surgery closing wedge 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 History of cholecystectomy History of D&C History of bilateral knee replacement Family History Grandmother Cancer Lung disease Stroke Mother Lung disease Other Atrial fibrillation Congestive heart failure (CHF) Social History Smoking and tobacco/nicotine status: never used tobacco/nicotine Alcohol intake: never Substance/Drug Use: never Household members: spouse Housing: House Marital status: Current occupational status: disabled Physical Exam 2 Const: GENERAL APPEARANCE: cooperative ORIENTATION/CONSCIOUSNESS: Yes awake, Yes oriented to person, Yes oriented to place and Yes oriented to time HENMT: COMMON NORMALS: normocephalic, atraumatic and hearing grossly normal bilaterally HEAD & SCALP: normocephalic and atraumatic Resp: COMMON NORMALS: normal respiratory effort, No retractions, No use of accessory muscles and clear to auscultation bilaterally AUSCULTATION: clear to auscultation bilaterally Cardio: PALPATION: abnormal PMI displaced PMI (Laterally) RATE: tachycardic RHYTHM: abnormal rhythm irregularly irregular HEART SOUNDS: Murmur heart sound present systolic Radiation: to the left axilla Intensity: / Characteristics: harsh GI: COMMON NORMALS: No hepatosplenomegaly present AUSCULTATION: Yes normoactive bowel sounds PALPATION: Yes Tenderness to palpation present (GI), No Guarding due to palpation present (GI) and Yes No hepatosplenomegaly present Extremity: COMMON NORMALS: normal to inspection, capillary refill normal, no clubbing, cyanosis or edema, no calf tenderness and no pedal edema Neuro: SENSORIUM/ORIENTATION: Yes oriented to person, Yes oriented to place and Yes oriented to time Skin: COMMON NORMALS: no rashes or lesions noted GENERAL SKIN EXAM: no rashes or lesions noted Procedures Central Line Placement Right IJ: Time Out Performed: Yes Patient Placed on Monitor/Pulse Ox: Yes MD Prep: mask, gown and gloves Central Line Prep: Chlorhexidine scrub Local Anesthetic: lidocaine 1% Amount of anesthesia used (mL): 5 Ultrasound Used for Placement: Yes Central Line Lumen Inserted: triple Post Procedure: sutured in place Patient Tolerated Procedure: well Complications: none Additional Comments: Chest x-ray confirms placement. l Initially as I was placing and it first did not want to was dried blood. Pulled back about 3 to 4 inches likely due to her short stature it was within the tricuspid valve after it was withdraw all the ports pulled blood and flushed easily. Was sutured in place using the line locks applied with the kit patient tolerated well Course 2 Vital Signs: Vital signs: Vital Signs Temperature 100.8 F H 04/16/24 05:59 Pulse Rate 99 04/16/24 13:30 Respiratory Rate 11 L 04/16/24 13:30 Blood Pressure 174/151 04/16/24 13:25 Pulse Oximetry 96 04/16/24 13:30 Oxygen Delivery Me thod Room Air 04/16/24 12:10 MDM - Chest Pain Medical Decision Making Prolong the car ER course because of difficulty with drawing blood ultimately put a central line in. Patient has pancreatitis she had not taken her morning meds you have several doses of metoprolol her heart was pounding with her rate and was actually difficult to place central line and give her metoprolol to slow her heart rate down to be able to place a central line.. Will start on esmolol drip for blood pressure as well think she is getting some rebound hypertension due to lack of the beta-bimal and clonidine. Discussed with hospitalist orders written. I also discussed with the radiologist states that he can visualize the common bile duct nicely on the CT and is nondilated. Medical Records I reviewed the patient's medical records. Lab Data I reviewed the patient's lab results. 04/16/24 08:06 04/16/24 06:56 Radiology Impressions Abdomen/Pelvis CT 04/16/24 08:27 IMPRESSION: 1. Findings compatible with acute pancreatitis. No drainable fluid collections. Recommend correlation with pancreatic enzymes. 2. Diffuse fatty infiltration of the liver. 3. Portal vein and splenic vein are patent. 4. Prior cholecystectomy. 5. Small esophageal hernia. 6. Moderate stoner colonic constipation 7. No other acute findings. Notified Osmel Segovia DO at 04/16/2024 10:38 AM. Chest X-Ray 04/16/24 11:43 IMPRESSION: 1. Right IJ central venous catheter terminates at the right atrium. 2. No acute cardiopulmonary findings. Laboratory Results WBC 17.55 10^3/uL (3.29-11.43) H 04/16/24 08:06 RBC 6.07 10^6/uL (3.85-5.65) H 04/16/24 08:06 Hgb 17.00 g/dL (11.27-16.99) H 04/16/24 08:06 Hct 52.3 % (36-47) H 04/16/24 08:06 MCV 86.2 fl (85-98) 04/16/24 08:06 MCH 28.0 pg (27-33) 04/16/24 08:06 MCHC 32.5 g/dL (30-55) 04/16/24 08:06 RDW 15.9 % (12.1-15.1) H 04/16/24 08:06 Plt Count 388 10^3/cmm (157-399) 04/16/24 08:06 MPV 11.4 fL (7.4-10.4) H 04/16/24 08:06 Neut % (Auto) 85.3 % 04/16/24 08:06 Lymph % (Auto) 10.7 % 04/16/24 08:06 [place] % (Auto) 3.2 % 04/16/24 08:06 Eos % (Auto) 0.0 % 04/16/24 08:06 Baso % (Auto) 0.2 % 04/16/24 08:06 Neut # (Auto) 14.97 10^3/uL (1.8-7.7) H 04/16/24 08:06 Lymph # (Auto) 1.9 10^3/uL (0.8-4.8) 04/16/24 08:06 [place] # (Auto) 0.6 10^3/uL (0.2-0.9) 04/16/24 08:06 Eos # (Auto) 0.0 10^3/uL (0.0-0.8) 04/16/24 08:06 Baso # (Auto) 0.0 10^3/uL (0.0-0.1) 04/16/24 08:06 Nucleated RBC % (auto) 0 % 04/16/24 08:06 Nucleated RBCs # 0.0 /100WBC 04/16/24 08:06 Sodium 141 mmol/L (136-145) 04/16/24 06:56 Potassium 3.5 mmol/L (3.5-5.1) 04/16/24 06:56 Chloride 98 mmol/L (98-107) 04/16/24 06:56 Carbon Dioxide 12 mmol/L (22-29) L 04/16/24 06:56 Anion Gap 34.5 (5-19) H 04/16/24 06:56 BUN 6 mg/dL (6-20) 04/16/24 06:56 Creatinine 0.6 mg/dL (0.5-0.9) 04/16/24 06:56 GFR Calculation 108.6 mL/min (90-130) 04/16/24 06:56 Glucose 233 mg/dL (65-115) H 04/16/24 06:56 Calculated Osmolality 297 mOsm/kg (285-295) H 04/16/24 06:56 Lactic Acid 5.5 mmol/L (0.5-2.2) H* 04/16/24 11:30 Calcium 9.4 mg/dL (8.5-10.5) 04/16/24 06:56 Magnesium 1.4 mg/dL (1.7-2.3) L 04/16/24 08:56 Total Bilirubin 0.6 mg/dL (0.15-1.2) 04/16/24 06:56 AST 153 U/L (0-32) H 04/16/24 06:56 ALT 51 U/L (0-33) H 04/16/24 06:56 Alkaline Phosphatase 583 U/L (35-105) H 04/16/24 06:56 Troponin T Baseline 16 ng/L (0-10) H 04/16/24 08:56 Troponin T 120 Minute 71.40 ng/L (0-10) H 04/16/24 11:30 Delta Troponin T 55.40 ABS# (0-10) H* 04/16/24 11:30 NT-Pro-B Natriuret Pep 1894 pg/mL (0-125) H 04/16/24 08:56 Total Protein 7.5 g/dL (6.6-8.7) 04/16/24 06:56 Albumin 3.7 g/dL (3.5-5.2) 04/16/24 06:56 Globulin 3.8 g/dL (1.3-4.6) 04/16/24 06:56 Triglycerides 132 mg/dL (0-150) 04/16/24 08:56 Lipase 412 U/L (13-60) H 04/16/24 08:56 Urine Color Yellow (Yellow) 04/16/24 12:32 Urine Appearance Clear (CLEAR) 04/16/24 12:32 Urine pH 5 (5-7) 04/16/24 12:32 Ur Specific [place] 1.005 (1.005-1.030) 04/16/24 12:32 Urine Protein 1+ (Negative) H 04/16/24 12:32 Urine Glucose (UA) 4+ (Normal) H 04/16/24 12:32 Urine Ketones 1+ (Negative) H 04/16/24 12:32 Urine Blood Neg (Negative) 04/16/24 12:32 Urine Nitrate Negative (Negative) 04/16/24 12:32 Urine Bilirubin Neg (Negative) 04/16/24 12:32 Urine Urobilinogen 1 mg/dL (Negative) H 04/16/24 12:32 Ur Leukocyte Esterase Negative (Negative) 04/16/24 12:32 Urine RBC None /hpf (0-2) 04/16/24 12:32 Urine WBC 0-4 /hpf (0-5) H 04/16/24 12:32 Ur Squamous Epith Cells 0-4 /hpf (0-5) H 04/16/24 12:32 Amorphous Sediment Not Reportable 04/16/24 12:32 Urine Bacteria None /hpf (NONE) 04/16/24 12:32 Serum Ketones Negative (Negative) 04/16/24 08:56 Coronavirus 229E (PCR) Not detected (NOT DETECT) 04/16/24 07:44 SARS-CoV-2 (PCR) Not detected (NOT DETECT) 04/16/24 07:44 All radiology interpretation(s) finalized by discharge Critical Care Time 2 Critical Care Time: Critical Care Time: Yes Total Critical Care Time: 60 Attestation: The high probability of a clinically significant, sudden or life threatening deterioration of the patient's cardiovascular GI system(s) required my full and direct attention, intervention and personal management. The critical care time is as shown. This time is in addition to time spent performing any reported procedures but includes the following: [x] Data and vital sign review and interpretation [x] Patient assessment, examination and intervention [x] Documentation [x] Medication orders and management Discharge Plan Discharge Patient Disposition: Admitted As Inpatient Admit Provider: Brett Patton Clinical Impression: Acute pancreatitis, Hypertension, Elevated troponin, Aortic valve, bicuspid Condition: Stable Coding Level of Care Code ED Analysis Reporting Developer for Heather Roman
[2024-04-16] MEDS: morphine 4 mg/mL SDV 1 mL IVP ×5 (07:05→21:40)
[2024-04-16] MEDS: ondansetron 2 mg/ML SDV 2 mL 4 MG IVP ×2 (07:07→15:57)
[2024-04-16] MEDS: metoprolol tartrate 1 mg/1 mL SDV 5 mL 2.5 MG IVP (07:09)
[2024-04-16] MEDS: sodium chloride 0.9% 500 ML 999 ML IV (07:11)
--- NOTE | 2024-04-16 08:27 | CT_ITS ---
WS: [id number] CT ABDOMEN PELVIS TECHNIQUE: Contrast-enhanced CT of the abdomen and pelvis with coronal and sagittal reformatted image s. CLINICAL INFORMATION: abd pain COMPARISON: CT 01/01/2023 DLP: 629.[address] scans at [facility] use at least one of these dose optimization techniques: automated e xposure control; mA and/or kV adjustment per patient size (includes targeted exams where dose is matc hed to clinical indication); or iterative reconstruction. FINDINGS: Diffuse fatty infiltration of the liver. Normal portal vein and splenic vein. Diffuse inflammatory st randing and edema about the pancreatic head compatible with acute pancreatitis. No drainable fluid co llections. Cholecystectomy. Lung bases are well aerated. Small esophageal hernia. Normal spleen. No hydronephrosis in either kidn ey. Normal caliber abdominal aorta. Stable LEFT adrenal adenoma. No hydronephrosis in either kidney. Moderate fecal retention in the colon. CT/CT abdomen pelvis w con* [id number] IMPRESSION: 1. Findings compatible with acute pancreatitis. No drainable fluid collections . Recommend correlation with pancreatic enzymes. 2. Diffuse fatty infiltration of the liver. 3. Portal vein and splenic vein are patent. 4. Prior cholecystectomy. 5. Small esophageal hernia. 6. Moderate stoner colonic constipation 7. No other acute findings. Notified Osmel Segovia DO at 04/16/2024 10:38 AM.
[2024-04-16] MEDS: metoclopramide 5 mg/mL SDV 2 mL 10 MG IVP (08:31)
--- NOTE | 2024-04-16 08:31 | ECG_ITS ---
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 Measurements Intervals [place] Rate: 118 P: 68 TN: 118 QRS: 13 QRSD: 91 T: 96 QT: 394 QTc: 553 Interpretive Statements SINUS TACHYCARDIA WITH SHORT TN INTERVAL WITH FREQUENT SUPRAVENTRICULAR PREMATURE COMPLEXES ST DEVIATION AND MODERATE T-WAVE ABNORMALITY, CONSIDER LATERAL ISCHEMIA [-0.1+ mV T-WAVE IN I/aVL/V5/V6] Compared to ECG 04/16/2024 06:00:52 Short TN interval now present Atrial fibrillation no longer present Left ventricular hypertrophy no longer present Myocardial infarct finding no longer present T-wave abnormality still present Possible ischemia still present Electronically Signed On 04-16-2024 9:44:44 CDT by Rahul Zambrano M.D. [id number]
[2024-04-16 09:06] LABS: Basophils % 0.2 %; Hematocrit 52.3 % (36-47); Lymphocytes # 1.9 10^3/uL (0.8-4.8); Lymphocytes % 10.7 %; Mean Corpuscular HGB Conc 32.5 g/dL (30-55); Mean Corpuscular Volume 86.2 fl (85-98); Mean Platelet Volume 11.4 fL (7.4-10.4); Monocytes # 0.6 10^3/uL (0.2-0.9); Monocytes % 3.2 %; Neutrophils # 14.97 10^3/uL (1.8-7.7); Neutrophils % 85.3 %; Nucleated Red Blood Cells % 0 %; Platelet Count 388 10^3/cmm (157-399); Red Blood Count 6.07 10^6/uL (3.85-5.65); Red Cell Distribution Width 15.9 % (12.1-15.1); White Blood Count 17.55 10^3/uL (3.29-11.43)
[2024-04-16 09:25] LABS: Troponin(5th) Baseline 16 ng/L (0-10)
[2024-04-16] MEDS: metoprolol tartrate 1 mg/1 mL SDV 5 mL 5 MG IVP ×2 (09:41→11:09)
[2024-04-16 09:43] LABS: Ketone (Acetest) Serum Negative (Negative)
[2024-04-16 09:44] LABS: Magnesium 1.4 mg/dL (1.7-2.3); NT Pro B Type Natriuretic Pept 1894 pg/mL (0-125); Triglycerides 132 mg/dL (0-150)
[2024-04-16] MEDS: piperacillin-tazobactam 3.375 GM in sodium chloride 0.9% (plus) 50 ML IV ×2 (09:47→15:57)
[2024-04-16] MEDS: sodium chloride 0.9% 1,000 ML 999 ML IV ×2 (09:48→13:16)
[2024-04-16 09:55] LABS: Lipase 412 U/L (13-60)
--- NOTE | 2024-04-16 09:56 | PC.NURSE ---
pt refusing PO metoprolol at this time. pt explained of side affects of not taking it. pt states i don't want to take it. dr walters notified. pt on continuous bedside monitoring at this time.
[2024-04-16 09:58] LABS: Adenovirus Not Detected (NOT DETECT); Chlamydia Pneumoniae Not Detected (NOT DETECT); Coronavirus 229E,HKU1,NL63,OC4 Not Detected (NOT DETECT); Human Metapneumovirus Not Detected (NOT DETECT); Human Rhinovirus/Enterovirus Not Detected (NOT DETECT); Influenza A Not Detected (NOT DETECT); Influenza A H1 Not Detected (NOT DETECT); Influenza A H1-2009 Not Detected (NOT DETECT); Influenza A H3 Not Detected (NOT DETECT); Influenza B Not Detected (NOT DETECT); Mycoplasma Pneumoniae Not Detected (NOT DETECT); Parainfluenza Virus Type 1 Not Detected (NOT DETECT); Parainfluenza Virus Type 2 Not Detected (NOT DETECT); Parainfluenza Virus Type 3 Not Detected (NOT DETECT); Parainfluenza Virus Type 4 Not Detected (NOT DETECT); Respiratory Syncytial Virus A Not Detected (NOT DETECT); Respiratory Syncytial Virus B Not Detected (NOT DETECT); SARS-COV-2 Not Detected (NOT DETECT)
[2024-04-16] MEDS: iohexol 350 mg/mL 500 mL Btl (per mL) IV (10:03)
--- NOTE | 2024-04-16 10:31 | ECG_ITS ---
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 Measurements Intervals [place] Rate: 113 P: 70 NE: 122 QRS: -11 QRSD: 90 T: 133 QT: 344 QTc: 472 Interpretive Statements SINUS TACHYCARDIA POSSIBLE RIGHT ATRIAL ENLARGEMENT [0.25mV P-WAVE] LEFT VENTRICULAR HYPERTROPHY AND ST-T CHANGE [VOLTAGE CRITERIA PLUS ST/T ABNORMALITY] Compared to ECG 04/16/2024 06:40:59 Left ventricular hypertrophy now present ST (T wave) deviation now present Short NE interval no longer present T-wave abnormality no longer present Possible ischemia no longer present Electronically Signed On 04-16-2024 9:46:47 CDT by Rahul Zambrano M.D. [id number]
--- NOTE | 2024-04-16 10:45 | ECG_ITS ---
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 Measurements Intervals [place] Rate: 120 P: 59 MT: 138 QRS: -8 QRSD: 89 T: 120 QT: 431 QTc: 609 Interpretive Statements SINUS TACHYCARDIA LEFT VENTRICULAR HYPERTROPHY AND ST-T CHANGE [VOLTAGE CRITERIA PLUS ST/T ABNORMALITY] Compared to ECG 04/16/2024 08:36:40 No significant changes Electronically Signed On 04-16-2024 23:25:57 CDT by Rahul Zambrano M.D. [email or web address].[employer]/store/[id number] f
[2024-04-16] MEDS: magnesium sulfate premix 2 GM/50 ML PIGGYBACK IV (10:55)
[2024-04-16] MEDS: LORazepam 2 mg/mL INJ 1 mL IVP (11:06)
[2024-04-16] MEDS: LORazepam 2 mg/mL INJ 1 mL (11:06)
--- NOTE | 2024-04-16 11:43 | XRR_ITS ---
PROCEDURE INFORMATION: Exam: XR Chest Exam date and time: 04/16/2024 12:06 PM Age: 44 years old Clinical indication: Device placement; Other: Central line placement TECHNIQUE: Imaging protocol: Radiologic exam of the chest. Views: 1 view. COMPARISON: CR XR chest 1V portable [id number] 08/21/2022 5:17 AM FINDINGS: Tubes, catheters and devices: Right IJ central venous catheter terminates at the right atrium. Lungs: Pulmonary hypoinflation with associated bronchovascular crowding. No consolidation. Pleural spaces: No substantial pleural effusion or pneumothorax. Heart/Mediastinum: Unremarkable. No cardiomegaly. Bones/joints: Unremarkable. Intraperitoneal space: Right upper abdomen surgical clips. XR/XR chest 1V [id number] IMPRESSION: 1. Right IJ central venous catheter terminates at the right atrium. 2. No acute cardiopulmonary findings.
[2024-04-16 11:48] LABS: Alanine Aminotransferase 51 U/L (0-33); Albumin Level 3.7 g/dL (3.5-5.2); Alkaline Phosphatase 583 U/L (35-105); Anion Gap 34.5 (5-19); Aspartate Amino Transferase 153 U/L (0-32); Blood Urea Nitrogen 6 mg/dL (6-20); Calcium 9.4 mg/dL (8.5-10.5); Carbon Dioxide 12 mmol/L (22-29); Chloride 98 mmol/L (98-107); Creatinine Clr Calc Pharmacy 102.9739; Globulin 3.8 g/dL (1.3-4.6); Glomerular Filtration Rate 108.6 mL/min (90-130); Glucose 233 mg/dL (65-115); Osmolality Calculated 297 mOsm/kg (285-295); Potassium 3.5 mmol/L (3.5-5.1); Sodium 141 mmol/L (136-145); Total Bilirubin 0.6 mg/dL (0.15-1.2); Total Protein 7.5 g/dL (6.6-8.7)
[2024-04-16 12:12] LABS: Lactic Sepsis W/Reflex 5.5 mmol/L (0.5-2.2)
--- NOTE | 2024-04-16 12:40 | ECG_ITS ---
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 Measurements Intervals [place] Rate: 116 P: 58 NV: 132 QRS: -18 QRSD: 92 T: 122 QT: 337 QTc: 469 Interpretive Statements SINUS TACHYCARDIA POSSIBLE LEFT ATRIAL ENLARGEMENT [-0.1mV P-WAVE IN V1/V2] LEFT VENTRICULAR HYPERTROPHY AND ST-T CHANGE [VOLTAGE CRITERIA PLUS ST/T ABNORMALITY] INFERIOR MYOCARDIAL INFARCTION , PROBABLY OLD [40+ ms Q WAVE AND/OR ST/T ABNORMALITY IN II/aVF] Compared to ECG 04/16/2024 10:48:31 Myocardial infarct finding now present ST (T wave) deviation still present Electronically Signed On 04-16-2024 23:28:49 CDT by Rahul Zambrano M.D. [id number] f
[2024-04-16 13:05] LABS: Add Urine Microscopic? YES; Bilirubin Urine Neg (Negative); Blood Urine Neg (Negative); Glucose Urine UA 4+ (Normal); Ketones Urine 1+ (Negative); Leukocyte Esterase Urine Negative (Negative); Nitrate Urine Negative (Negative); Protein Urine 1+ (Negative); Specific Gravity, Urine 1.005 (1.005-1.030); Urine Appearance Clear (CLEAR); Urine Color Yellow (Yellow); Urobilinogen Urine 1 mg/dL (Negative); pH Urine 5 (5-7)
[2024-04-16 13:10] LABS: Add Urine Culture? No; Squamous Epithelial Cell Urine 0-4 /hpf (0-5); WBC Urine 0-4 /hpf (0-5)
[2024-04-16] MEDS: esmolol drip 2,500 MG/250 ML PREMIX 20.41 MG IV (13:16)
[2024-04-16 13:38] LABS: Reflex Lactate Order REFLEX LACTIC ORDERD
--- NOTE | 2024-04-16 14:31 | ECG_ITS ---
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 Measurements Intervals [place] Rate: 126 P: 0 AR: 0 QRS: -11 QRSD: 90 T: 119 QT: 267 QTc: 386 Interpretive Statements ATRIAL FIBRILLATION WITH RAPID VENTRICULAR RESPONSE VOLTAGE CRITERIA FOR LVH [MEETS CRITERIA IN ONE OF: R(aVL), S(V1), R(V5), R(V5/V6)+S(V1)] POSSIBLE ANTERIOR MYOCARDIAL INFARCTION , PROBABLY OLD [30 ms Q WAVE IN V3/V4, OR R < 0.2 mV IN V4] ST DEVIATION AND MODERATE T-WAVE ABNORMALITY, CONSIDER LATERAL ISCHEMIA [-0.1+ mV T-WAVE IN I/aVL/V5/V6] Compared to ECG 04/15/2023 09:06:32 T-wave abnormality now present Possible ischemia now present Sinus rhythm no longer present Myocardial infarct finding still present Electronically Signed On 04-16-2024 9:51:18 CDT by Rahul Zambrano M.D. [id number]
[2024-04-16] MEDS: sodium chloride 0.9% 1,000 ML 200 ML IV ×2 (14:33→19:34)
--- NOTE | 2024-04-16 14:41 | P.HP_ITS ---
Providers/Chief Complaint 2 Admitting Physician: Brett Patton Primary Care Provider: Galo Perez MD Chief Complaint: CP History of Present Illness 44-year-old lady with history of pancreatitis, reports medication-induced with initial episode thought to be due to Zonegran, presents due to nausea and vomiting over the last several days, left upper quadrant abdominal pain, unable to keep her medications. In ER with fever 100.8 Fahrenheit, leukocytosis 17.55. Lactic acidosis 5.5, anion gap 34.5. Magnesium 1.4. In ER very hypertensive, tachycardic, blood pressure up to 211/152. Heart rate 130s. Hypertensive and tachycardic despite IV metoprolol push x 3 in ER. Transaminitis AST 153, ALT 51. Alk phos 583. Baseline troponin 16, 2-hour troponin up to 71.4. NT proBNP 1894. Serum ketones negative. Lipase 412. CT abdomen pelvis with findings compatible with acute pancreatitis. Incidentally also diffuse fatty infiltration of the liver, portal vein and splenic vein are patent. Prior cholecystectomy. Small esophageal hernia. Moderate pancolonic constipation. Review of Systems 2 Const: Reports: change in appetite; Denies: fever(s) ENMT: Denies: throat pain, oral sores or ear or mastoid pain Card: Denies: chest pain, edema, pre-syncope or dyspnea on exertion Resp: Denies: dyspnea, productive cough, change in phlegm color or hemoptysis GI: Reports: abdominal pain, nausea and vomiting; Denies: diarrhea, hematochezia or melena : Denies: flank pain, urinary frequency or hematuria Musc: Denies: back pain, joint swelling or joint redness Skin/Breast: Denies: rash or new lesions Neuro: Denies: headache(s), numbness in extremities, weakness in extremities, dizziness, confusion or seizure-like activity Medications/Allergies Home Medications Medication Instructions Recorded Confirmed Last Taken Type STANDARD WHEELCHAIR #1 ea 05/29/21 04/16/24 Unknown Rx isosorbide mononitrate 30 mg 15 mg PO DAILY 08/21/22 04/16/24 04/15/24 History tablet,extended release 24 hr spironolactone 25 mg tablet 25 mg PO DAILY 08/21/22 04/16/24 04/15/24 History blood-glucose meter (OneTouch #1 ea 03/08/23 07/15/24 Unknown Rx Ultra2 Meter) lancets (OneTouch UltraSoft #200 ea 12/08/22 04/16/24 Unknown Rx Lancets) lactulose 10 gram/15 mL (15 mL) 10 g (15 mL) PO DAILY PRN 12/22/22 04/16/24 Unknown Rx oral solution constipation #600 mL furosemide 20 mg tablet 20 mg PO DAILY PRN edema #30 tabs 02/09/23 04/16/24 04/08/23 Rx [id number]-[id number]-[id number] 1 cap PO TIDWMEAL 04/14/23 04/16/24 04/14/23 History 40,000-126,000-168,000 unit capsule, delay rel (Zenpep) shower chair #1 ea 04/28/23 04/16/24 Unknown Rx ASO to the right #1 ea 06/13/23 04/16/24 Unknown Rx lancets 33 gauge (OneTouch Delica #100 ea 10/17/23 04/16/24 Unknown Rx Plus Lancet) brivaracetam 25 mg tablet 25 mg PO DAILY #60 tabs 10/25/23 04/16/24 04/15/24 Rx (Briviact) metoprolol tartrate 25 mg tablet 12.5 mg (1/2 x 25 mg) PO BID #60 01/25/24 04/16/24 04/15/24 Rx tabs insulin lispro 100 unit/mL 6 unit (0.06 mL) SUBCUT TIDWMEAL 01/27/24 04/16/24 04/15/24 Rx subcutaneous pen 30 days #15 mL scopolamine base 1 mg over 3 days 1 patch transdermal Q3D PRN nausea 03/14/24 04/16/24 Unknown Rx transdermal patch and vomiting #24 ea morphine 30 mg tablet,extended 30 mg PO Q12H 1 month #60 tabs 03/22/24 04/16/24 04/15/24 Rx release Pen Alpine #1 ea 04/12/24 04/16/24 Unknown Rx blood sugar diagnostic (OneTouch #200 strips 04/12/24 04/16/24 Unknown Rx Ultra Test strips) insulin glargine 100 unit/mL (3 20 unit (0.2 mL) SUBCUT BID #15 mL 04/12/24 04/16/24 04/15/24 Rx mL) subcutaneous pen (Lantus Solostar U-100 Insulin) levetiracetam 500 mg tablet 1,250 mg (2.5 x 500 mg) PO BID 60 04/12/24 04/16/24 04/15/24 Rx days #300 tabs apixaban 5 mg tablet (Eliquis) 5 mg PO BID 04/16/24 04/16/24 04/15/24 History clonidine HCl 0.1 mg tablet 0.1 mg PO BID 04/16/24 04/16/24 04/15/24 History ondansetron 4 mg disintegrating 4 mg PO Q8H PRN Nausea And Vomiting 04/16/24 04/16/24 Unknown History tablet pantoprazole 40 mg tablet,delayed 40 mg PO BID 04/16/24 04/16/24 04/15/24 History release potassium chloride 20 mEq 20 meq PO DAILY PRN Edema 04/16/24 04/16/24 Unknown History tablet,extended release tizanidine 4 mg tablet 4 mg PO TID PRN MUSCLE SPASMS 04/16/24 04/16/24 Unknown History zolpidem 5 mg tablet 5 mg PO QPM PRN insomnia 04/16/24 04/16/24 04/15/24 History Allergies Allergy/AdvReac Type Severity Reaction Status Date / Time canagliflozin [From Invokana] Allergy Severe abdominal Verified 04/16/24 06:07 pain enalaprilat Allergy Severe tongue Verified 04/16/24 06:07 swelling aspirin Allergy Unknown Verified 04/16/24 06:07 ketorolac [From Toradol] Allergy Unknown Verified 04/16/24 06:07 nicardipine Allergy ALGY-Difficulty Verified 04/16/24 06:07 Breathing tramadol [From Ultram] Allergy Unknown Verified 04/16/24 06:07 PFSH Acute 2 PFSH: Medical History Atrial fibrillation with RVR Bicuspid aortic valve Aortic regurgitation Labile hypertension Exocrine pancreatic insufficiency GI bleed Adrenal mass Chronic pancreatitis Epilepsy Primary osteoarthritis Diabetes Essential (primary) hypertension 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 Chronic pain of lower extremity, bilateral Congenital hip dysplasia Surgical History History of knee replacement procedure of right knee done twice History of foot surgery closing wedge 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 History of cholecystectomy History of D&C History of bilateral knee replacement Family History Grandmother Cancer Lung disease Stroke Mother Lung disease Other Atrial fibrillation Congestive heart failure (CHF) Social History Smoking and tobacco/nicotine status: never used tobacco/nicotine Alcohol intake: never Substance/Drug Use: never Household members: spouse Housing: House Marital status: Current occupational status: disabled Female Reproductive History: Date of last menstrual period: 03/19/24 Vitals/I&O/Wt Last Vital Signs Temp 100.8 F H 04/16/24 05:59 Pulse 99 04/16/24 13:30 Resp 11 L 04/16/24 13:30 BP 174/151 04/16/24 13:25 Pulse Ox 96 04/16/24 13:30 O2 Del Method Room Air 04/16/24 12:10 04/15/24 04/16/24 04/16/24 22:59 06:59 14:59 Intake Total 2965 / 2965 Balance 2965 / 2965 Weight last 48 hrs Weight 68.039 kg Physical Exam 2 Narrative: Antalgic positioning, whimpering due to pain. Const: COMMON NORMALS: patient oriented x3 and alert GENERAL APPEARANCE: c ooperative NUTRITIONAL APPEARANCE: obese ORIENTATION/CONSCIOUSNESS: Yes awake HENMT: COMMON NORMALS: oropharynx normal Neck/C-Spine: COMMON NORMALS: no JVD Resp: COMMON NORMALS: normal respiratory effort and clear to auscultation bilaterally AUSCULTATION: clear to auscultation bilaterally Cardio: COMMON NORMALS: no JVD, regular rhythm, S1 normal heart sound present, S2 normal heart sound present and No murmurs present (Cardio) RHYTHM: regular rhythm HEART SOUNDS: S1 normal heart sound present and S2 normal heart sound present GI: COMMON NORMALS: Normal to inspection, nondistended, normoactive bowel sounds present and Soft to palpation PALPATION: Yes Soft to palpation O THER: Tender periumbilical and epigastric area. Extremity: COMMON NORMALS: no joint enlargement and no pedal edema Neuro: COMMON NORMALS: patient oriented x3 and moves all extremities S ENSORIUM/ORIENTATION: Yes alert Skin: COMMON NORMALS: no rashes or lesions noted GENERAL SKIN EXAM: no rashes or lesions noted Data 04/16/24 08:06 04/16/24 06:56 Micro: Microbiology 04/16/24 11:30 Blood Culture - Preliminary Blood SPECIMEN COLLECTED 04/16/24 11:47 Blood Culture - Preliminary Blood SPECIMEN COLLECTED A&P Assessment and plan (1) Acute pancreatitis: Moderately severe acute pancreatitis with SIRS, fever 100.8, WBC 17.55, tachycardia 109, severe abdominal pain, pancreatitis findings on CT, lipase elevation 412, persistent nausea and vomiting despite treatment. Reviewed vitals, CBC, CMP, magnesium, lipase, troponin, CT abdomen pelvis, UA, ketones, coronavirus PCR panel, ER note, discussed with ER provider. With noted elevation of transaminases, alk phos, CT scan was discussed with radiology by ER provider, CBD appeared normal, low suspicion of choledocholithiasis/ascending cholangitis, abdominal ultrasound is requested. For now empirically antibiotic started with Zosyn due to SIRS without obvious source for sepsis/infection. Bowel rest, n.p.o., required 12 mg IV morphine in ER, will give IV Dilaudid for pain control. IV Zofran. IV fluids with LR. Received magnesium, recheck level. Check phosphorus. Repeat chemistry. Monitor hemodynamics with severe hypertension currently, at risk of shock, hypotension with severe pancreatitis. With recurrent pancreatitis, discussed with her would benefit from follow-up with gastroenterology to look for any other possible etiology, including possibility of autoimmune disease. (2) Nausea and vomiting: Despite antiemetic. Bowel rest. Pain control, IV antiemetic. IV fluids. Unable to tolerate her medications, will transition Keppra to IV for now. Discussed with pharmacist. Additionally unable to tolerate clonidine with likely rebound hypertension as well, discussed with her starting patch. (3) Transaminitis: Pending ultrasound assessment for choledocholithiasis. Low likelihood based on CT as per radiologist. Obtain viral hepatitis panel. (4) Elevated troponin: Baseline troponin normal, at 2 hours troponin up to 71.4. Complete troponin series. Monitor on telemetry. Possible NSTEMI. Allergic to aspirin. On anticoagulation with Eliquis at home, will switch to Lovenox here. Obtain limited TTE. Cardiology is consulted. Has risk factors of coronary disease, would benefit from further risk stratification depending on clinical course and findings. (5) Hypomagnesemia: Received magnesium. Recheck level. (6) High anion gap metabolic acidosis: High anion gap metabolic acidosis with severe lactic acidosis, lactic acid 5.5. Additional hydration with IV LR. Reassess. Repeat chemistry. Reassess kidney function. At risk of ALEIDA. Serum ketones are negative. Monitor blood glucose. Continue insulin. (7) Hypertensive urgency: Did not respond to IV metoprolol pushes in ER. Started on esmolol drip. Continue small drip, monitor blood pressure. Likely component of rebound hypertension with clonidine which she has been unable to take due to nausea and vomiting. Discussed with her starting patch. Plan Diabetes: N.p.o. for time being. Reduce insulin Lantus dose to 10 units twice daily. Accu-Cheks. Sliding scale insulin. Epilepsy: Unable to keep down oral medications. Switch Keppra to IV. Continue home brivaracetam if tolerating Aortic regurgitation, bicuspid aortic valve. Attestations 2 Medical Necessity Statement*: Admission of over 2 midnights anticipated for assessment of management of severe acute pancreatitis with SIRS, persistent nausea and vomiting despite treatment, severe lactic acidosis, anion gap metabolic acidosis, rising troponin. Coding Level of Care Code Critical Care >/= 30 minutes Critical care time (in minutes): 40 The high probability of a clinically significant, sudden or life threatening deterioration, as referenced in this documentation, required my full and direct attention, intervention and personal management. The critical care time shown is in addition to time spent performing any reported separately billable procedures and includes the following: [x] Data and vital sign review and interpretation [x ] Patient assessment, examination and intervention [x] Medication orders and management [x] Patient/Family updates as able [x] Care Coordination and Documentation. Diagnoses Acute pancreatitis K85.90 Nausea and vomiting R11.2 Transaminitis R74.01 Elevated troponin R79.89 Hypomagnesemia E83.42 High anion gap metabolic acidosis E87.29 Hypertensive urgency I16.0
[2024-04-16] MEDS: HYDROmorphone 1 mg/mL INJ 1 mL 0.5 MG IVP ×2 (14:55→19:28)
[2024-04-16 15:24] LABS: Anion Gap 21.2 (5-19); Blood Urea Nitrogen 5 mg/dL (6-20); Calcium 7.9 mg/dL (8.5-10.5); Carbon Dioxide 18 mmol/L (22-29); Chloride 106 mmol/L (98-107); Creatinine Clr Calc Pharmacy 123.5687; Glucose 200 mg/dL (65-115); Osmolality Calculated 297 mOsm/kg (285-295); Potassium 3.2 mmol/L (3.5-5.1); Sodium 142 mmol/L (136-145)
[2024-04-16 15:33] LABS: Troponin 5 6HR 148.9 ng/L (0-10); Troponin 5 6HR Delta 132.9 ng/L (0-12)
[2024-04-16 15:34] LABS: Lactic Acid level (Lactate) 4.2 mmol/L (0.5-2.2)
[2024-04-16] MEDS: enoxaparin 80 mg/0.8 mL Syringe 70 MG SUBCUT (15:57)
[2024-04-16] MEDS: levETIRAcetam 1,000 MG/100 ML PREMIX 400 MG IV (15:58)
[2024-04-16 16:15] LABS: Hepatitis A Antibody IgM Non-Reactive (Nonreactive); Hepatitis B Core IgM Non-Reactive (Nonreactive); Hepatitis B Surface Antigen Non-Reactive (Nonreactive); Hepatitis C Virus Antibody Non-Reactive (Nonreactive)
[2024-04-16 16:21] LABS: Glucose Point of Care 174 mg/dL (70-110)
[2024-04-16] MEDS: insulin lispro 100 unit/1 mL SUBCUT ×2 (16:27→21:43)
[2024-04-16 16:35] LABS: Creatine Phosphokinase 225 U/L (26-192)
[2024-04-16] MEDS: LORazepam 2 mg/mL INJ 1 mL 0.5 MG IM (17:01)
[2024-04-16] MEDS: insulin glargine 100 units/1 mL 10 UNIT SUBCUT (17:40)
[2024-04-16] MEDS: hyDRALAzine 20 mg/mL INJ 1 mL 25 MG IVP (18:31)
[2024-04-16] MEDS: LORazepam 2 mg/mL INJ 1 mL 1 MG IM (18:31)
--- NOTE | 2024-04-16 18:42 | P.CONIM_ITS ---
Providers/Reason For Consult 2 Consulting Physician/Specialty*: CHEYENNE Brito MD/cardiology Reason for Consult*: Patient with elevated troponin T and tachycardia Requesting Physician: Dr. Patton/Dr. Segovia Attending Physician: Brett Patton Primary Care Provider: Galo Perez MD History of Present Illness History of Present Illness Eleanor Ragland is a 44 year old female with a history of chronic pancreatitis, presented to the emergency room with complaints of abdominal pain, nausea and vomiting. She has features of acute exacerbation of the pancreatitis. She also was found to have tachycardia with a heart rate in the 120s and 130s. The troponin I was found to be elevated. Cardiology consult is requested for further cardiac evaluation recommendations. This patient apparently had multiple hospital admissions and ER visits in the past with features of recurrent pancreatitis and various other complaints. She has a history of a seizure disorder and had to be intubated for status epilepticus?. Also history of uncontrolled blood pressure and possible adrenal tumor/pheochromocytoma. She is being followed up at the endocrinology clinic of the [facility]. History of insulin requiring diabetes and high blood pressure for many years. In 2021, she was admitted to hospital with pancreatitis complicated with respiratory failure. She at that time went into atrial fibrillation with rapid ventricular rate. She had to be cardioverted electrically. The echocardiogram revealed features of bicuspid aortic valve, moderate aortic valve stenosis, moderate aortic regurgitation and hypertrophic obstructive cardiomyopathy. The resting gradient across the LV outflow tract was around 36 mmHg based on echocardiogram done last month. She started getting stomach pain yesterday which got worse through the night and started vomiting. This morning she has more stomach pain and vomiting and was complaining of generalized weakness. She was brought to the emergency room for these complaints. She was found to have features of acute pancreatitis. She is currently on pain medications and other supportive measures. Currently patient, she never had any chest pain. No unusual shortness of breath. No orthopnea PND. She has been on long-term oral anticoagulation for atrial fibrillation. Review of Systems 2 Narrative: CONSTITUTIONAL: No fever or chills. EYES: No blurring of vision or other visual disturbances lately. ENT: No hoarseness of voice, auditory disturbances or sore throat. CARDIOVASCULAR: As mentioned above. RESPIRATORY: No significant cough. GASTROINTESTINAL: No hematemesis or melena. GENITOURINARY: No dysuria or hematuria. INTEGUMENTARY: No skin rashes or history of skin cancer. NEURO: No transient ischemic attacks or amaurosis. PSYCHIATRIC: No history of psychosis or major depression. HEMATOLOGIC: No bleeding disorders or significant anemia. ENDOCRINE: Possible adrenal tumor, scheduled for CAT scan in [place] MUSCULOSKELETAL: No recent joint pain or swelling. ALLERGY/IMMUNOLOGY: As mentioned above. Medications/Allergies Home Medications Medication Instructions Recorded Confirmed Last Taken Type STANDARD WHEELCHAIR #1 ea 05/29/21 04/16/24 Unknown Rx isosorbide mononitrate 30 mg 15 mg PO DAILY 08/21/22 04/16/24 04/15/24 History tablet,extended release 24 hr spironolactone 25 mg tablet 25 mg PO DAILY 08/21/22 04/16/24 04/15/24 History blood-glucose meter (SoftLayerTouch #1 ea 12/08/22 04/16/24 Unknown Rx Ultra2 Meter) lancets (SoftLayerTouch UltraSoft #200 ea 12/08/22 04/16/24 Unknown Rx Lancets) lactulose 10 gram/15 mL (15 mL) 10 g (15 mL) PO DAILY PRN 12/22/22 04/16/24 Unknown Rx oral solution constipation #600 mL furosemide 20 mg tablet 20 mg PO DAILY PRN edema #30 tabs 02/09/23 04/16/24 04/08/23 Rx keerqk-zwbjrtin-eqljqrt 1 cap PO TIDWMEAL 04/14/23 04/16/24 04/14/23 History 40,000-126,000-168,000 unit capsule, delay rel (Zenpep) shower chair #1 ea 04/28/23 04/16/24 Unknown Rx ASO to the right #1 ea 06/13/23 04/16/24 Unknown Rx lancets 33 gauge (OneTouch Delica #100 ea 10/17/23 04/16/24 Unknown Rx Plus Lancet) brivaracetam 25 mg tablet 25 mg PO DAILY #60 tabs 10/25/23 04/16/24 04/15/24 Rx (Briviact) metoprolol tartrate 25 mg tablet 12.5 mg (1/2 x 25 mg) PO BID #60 01/25/24 04/16/24 04/15/24 Rx tabs insulin lispro 100 unit/mL 6 unit (0.06 mL) SUBCUT TIDWMEAL 01/27/24 04/16/24 04/15/24 Rx subcutaneous pen 30 days #15 mL scopolamine base 1 mg over 3 days 1 patch transdermal Q3D PRN nausea 03/14/24 04/16/24 Unknown Rx transdermal patch and vomiting #24 ea morphine 30 mg tablet,extended 30 mg PO Q12H 1 month #60 tabs 03/22/24 04/16/24 04/15/24 Rx release Pen [place] #1 ea 04/12/24 04/16/24 Unknown Rx blood sugar diagnostic (OneTouch #200 strips 04/12/24 04/16/24 Unknown Rx Ultra Test strips) insulin glargine 100 unit/mL (3 20 unit (0.2 mL) SUBCUT BID #15 mL 04/12/24 04/16/24 04/15/24 Rx mL) subcutaneous pen (Lantus Solostar U-100 Insulin) levetiracetam 500 mg tablet 1,250 mg (2.5 x 500 mg) PO BID 60 04/12/24 04/16/24 04/15/24 Rx days #300 tabs apixaban 5 mg tablet (Eliquis) 5 mg PO BID 04/16/24 04/16/24 04/15/24 History clonidine HCl 0.1 mg tablet 0.1 mg PO BID 04/16/24 04/16/24 04/15/24 History ondansetron 4 mg disintegrating 4 mg PO Q8H PRN Nausea And Vomiting 04/16/24 04/16/24 Unknown History tablet pantoprazole 40 mg tablet,delayed 40 mg PO BID 04/16/24 04/16/24 04/15/24 History release potassium chloride 20 mEq 20 meq PO DAILY PRN Edema 04/16/24 04/16/24 Unknown History tablet,extended release tizanidine 4 mg tablet 4 mg PO TID PRN MUSCLE SPASMS 04/16/24 04/16/24 Unknown History zolpidem 5 mg tablet 5 mg PO QPM PRN insomnia 04/16/24 04/16/24 04/15/24 History Allergies Allergy/AdvReac Type Severity Reaction Status Date / Time canagliflozin [From Invokana] Allergy Severe abdominal Verified 04/16/24 06:07 pain enalaprilat Allergy Severe tongue Verified 04/16/24 06:07 swelling aspirin Allergy Unknown Verified 04/16/24 06:07 ketorolac [From Toradol] Allergy Unknown Verified 04/16/24 06:07 nicardipine Allergy ALGY-Difficulty Verified 04/16/24 06:07 Breathing tramadol [From Ultram] Allergy Unknown Verified 04/16/24 06:07 Current Medications Generic Name Dose Route Start Last Admin Trade Name Freq PRN Reason Stop Dose Admin Bisacodyl 10 mg 04/16/24 14:45 04/16/24 15:58 Bisacodyl 10 Mg Supp MA Not Given DAILY [facility] Clonidine HCl 1 patch 04/16/24 15:30 04/16/24 15:59 Clonidine 0.1 Mg/24 Hr Patch TRANSDERMA Not Given Q7D [facility] Enoxaparin Sodium 70 mg 04/16/24 16:00 04/16/24 15:57 Enoxaparin 80 Mg/0.8 Ml Syringe SUBCUT 70 mg Q12H LEANDRA Administration Hydromorphone HCl 0.5 mg 04/16/24 14:33 04/16/24 14:55 Hydromorphone 1 Mg/Ml Inj 1 Ml IVP 0.5 mg Q4H PRN Administration SEVERE PAIN Esmolol HCl 2,500 mg in 250 mls @ 0 mls/hr 04/16/24 12:45 04/16/24 13:16 Brevibloc Drip IV 50 mcg/kg/min .Q0M LEANDRA 20.41 mls/hr Administration Protocol Per Protocol Sodium Chloride 1,000 mls @ 200 mls/hr 04/16/24 13:32 04/16/24 14:33 Sodium Chloride 0.9% IV 200 mls/hr .Q5H LEANDRA Administration Piperacillin Sod/Tazobactam 50 mls @ 12.5 mls/hr 04/16/24 16:00 04/16/24 15:57 Sod 3.375 gm/ Sodium Chloride IV 12.5 mls/hr Q8H LEANDRA Administration Protocol Levetiracetam 1,000 mg in 100 mls @ 400 mls/hr 04/16/24 15:00 04/16/24 15:58 Keppra IV 400 mls/hr Q12H LEANDRA Administration Insulin Glargine 10 unit 04/16/24 18:00 04/16/24 17:40 Insulin Glargine 100 Units/1 Ml SUBCUT 10 unit BID LEANDRA Administration Insulin Human Lispro 0 unit 04/16/24 15:15 04/16/24 16:27 Insulin Lispro 100 Unit/1 Ml SUBCUT 2 unit Q6H LEANDRA Administration Protocol Lorazepam 1 mg 04/16/24 18:23 04/16/24 18:31 Lorazepam 2 Mg/Ml Inj 1 Ml IM 04/18/24 14:33 1 mg Q4H PRN Administration ANXIETY Morphine Sulfate 4 mg 04/16/24 13:32 04/16/24 17:39 Morphine 4 Mg/Ml Sdv 1 Ml IVP 4 mg Q4H PRN Administration SEVERE PAIN Ondansetron HCl 4 mg 04/16/24 13:32 04/16/24 15:57 Ondansetron 2 Mg/Ml Sdv 2 Ml IVP 4 mg Q6H PRN Administration NAUSEA AND VOMITING PFSH Acute 2 PFSH: Medical History Atrial fibrillation with RVR Bicuspid aortic valve Aortic regurgitation Labile hypertension Exocrine pancreatic insufficiency GI bleed Adrenal mass Chronic pancreatitis Epilepsy Primary osteoarthritis Diabetes Essential (primary) hypertension 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 Chronic pain of lower extremity, bilateral Congenital hip dysplasia Surgical History History of knee replacement procedure of right knee done twice History of foot surgery closing wedge 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 History of cholecystectomy History of D&C History of bilateral knee replacement Family History Grandmother Cancer Lung disease Stroke Mother Lung disease Other Atrial fibrillation Congestive heart failure (CHF) Social History Smoking and tobacco/nicotine status: never used tobacco/nicotine Alcohol intake: never Substance/Drug Use: never Household members: spouse Housing: House Marital status: Current occupational status: disabled Female Reproductive History: Date of last menstrual period: 03/19/24 Vitals/I&O/Wt Last Vital Signs Temp 100.8 F H 04/16/24 05:59 Pulse 103 H 04/16/24 17:00 Resp 28 H 04/16/24 17:39 BP 189/120 04/16/24 17:00 Pulse Ox 96 04/16/24 17:00 O2 Del Method Room Air 04/16/24 13:33 04/16/24 04/16/24 04/16/24 06:59 14:59 22:59 Intake Total 2965 / 2965 Balance 2965 / 2965 Weight last 48 hrs Weight 150 lb Physical Exam 2 Narrative: GENERAL: The patient is alert and oriented times three. Complaining of severe abdominal pain and nausea HEENT: No significant pallor, icterus or lymphadenopathy.Oral cavity: There are no mucous membrane lesions. NECK: Trachea appears to be central. No masses noted. No JVD or thyromegaly appreciated. RESPIRATORY: Chest is symmetrical. No intercostals muscle retraction or any accessory muscle activation. There is no chest wall tenderness. Breath sounds are heard bilaterally. No rales or rhonchi heard. No evidence of any consolidation. BREASTS: Deferred. HEART: The heart sounds are normal. No S3 or S4. No significant murmurs. No pericardial rub ABDOMEN: Diffuse tenderness in the epigastric and periumbilical regions . No organomegaly appreciated. Bowel sounds are normally heard. : Deferred. RECTAL: Deferred. LYMPHATIC: No lymphadenopathy noted in the neck. EXTREMITIES: Extremities somewhat clammy. Peripheral pulses are palpable but weak bilaterally. MUSCULOSKELETAL: No acute joint deformities or swelling SKIN: There are no significant rashes or ecchymosis NEUROPSYCHIATRIC: Patient is complaining about pain. Appears very uncomfortable, extremely nervous. Data 04/17/24 02:57 04/17/24 02:57 Other Labs: Laboratory Last Values WBC 17.55 10^3/uL (3.29-11.43) H 04/16/24 08:06 RBC 6.07 10^6/uL (3.85-5.65) H 04/16/24 08:06 Hgb 17.00 g/dL (11.27-16.99) H 04/16/24 08:06 Hct 52.3 % (36-47) H 04/16/24 08:06 MCV 86.2 fl (85-98) 04/16/24 08:06 MCH 28.0 pg (27-33) 04/16/24 08:06 MCHC 32.5 g/dL (30-55) 04/16/24 08:06 RDW 15.9 % (12.1-15.1) H 04/16/24 08:06 Plt Count 388 10^3/cmm (157-399) 04/16/24 08:06 MPV 11.4 fL (7.4-10.4) H 04/16/24 08:06 Neut % (Auto) 85.3 % 04/16/24 08:06 Lymph % (Auto) 10.7 % 04/16/24 08:06 [place] % (Auto) 3.2 % 04/16/24 08:06 Eos % (Auto) 0.0 % 04/16/24 08:06 Baso % (Auto) 0.2 % 04/16/24 08:06 Neut # (Auto) 14.97 10^3/uL (1.8-7.7) H 04/16/24 08:06 Lymph # (Auto) 1.9 10^3/uL (0.8-4.8) 04/16/24 08:06 [place] # (Auto) 0.6 10^3/uL (0.2-0.9) 04/16/24 08:06 Eos # (Auto) 0.0 10^3/uL (0.0-0.8) 04/16/24 08:06 Baso # (Auto) 0.0 10^3/uL (0.0-0.1) 04/16/24 08:06 Nucleated RBC % (auto) 0 % 04/16/24 08:06 Nucleated RBCs # 0.0 /100WBC 04/16/24 08:06 Sodium 142 mmol/L (136-145) 04/16/24 14:10 Potassium 3.2 mmol/L (3.5-5.1) L 04/16/24 14:10 Chloride 106 mmol/L (98-107) 04/16/24 14:10 Carbon Dioxide 18 mmol/L (22-29) L 04/16/24 14:10 Anion Gap 21.2 (5-19) H 04/16/24 14:10 BUN 5 mg/dL (6-20) L 04/16/24 14:10 Creatinine 0.5 mg/dL (0.5-0.9) 04/16/24 14:10 GFR Calculation 134.0 mL/min (90-130) H 04/16/24 14:10 Glucose 200 mg/dL (65-115) H 04/16/24 14:10 POC Glucose 174 mg/dL (70-110) H 04/16/24 16:05 Calculated Osmolality 297 mOsm/kg (285-295) H 04/16/24 14:10 Lactic Acid 5.5 mmol/L (0.5-2.2) H* 04/16/24 11:30 Lactic Acid (Sepsis) 4.2 mmol/L (0.5-2.2) H* 04/16/24 14:10 Calcium 7.9 mg/dL (8.5-10.5) L 04/16/24 14:10 Magnesium 1.4 mg/dL (1.7-2.3) L 04/16/24 08:56 Total Bilirubin 0.6 mg/dL (0.15-1.2) 04/16/24 06:56 AST 153 U/L (0-32) H 04/16/24 06:56 ALT 51 U/L (0-33) H 04/16/24 06:56 Alkaline Phosphatase 583 U/L (35-105) H 04/16/24 06:56 Creatine Kinase 225 U/L (26-192) H 04/16/24 14:10 Troponin T Baseline 16 ng/L (0-10) H 04/16/24 08:56 Troponin T 120 Minute 71.40 ng/L (0-10) H 04/16/24 11:30 Delta Troponin T 55.40 ABS# (0-10) H* 04/16/24 11:30 Troponin T Hi Sens 6Hr 148.9 ng/L (0-10) H 04/16/24 14:10 Troponin T Hi Sens 6Hr Delta 132.9 ng/L (0-12) H* 04/16/24 14:10 NT-Pro-B Natriuret Pep 1894 pg/mL (0-125) H 04/16/24 08:56 Total Protein 7.5 g/dL (6.6-8.7) 04/16/24 06:56 Albumin 3.7 g/dL (3.5-5.2) 04/16/24 06:56 Globulin 3.8 g/dL (1.3-4.6) 04/16/24 06:56 Triglycerides 132 mg/dL (0-150) 04/16/24 08:56 Lipase 412 U/L (13-60) H 04/16/24 08:56 Urine Color Yellow (Yellow) 04/16/24 12:32 Urine Appearance Clear (CLEAR) 04/16/24 12:32 Urine pH 5 (5-7) 04/16/24 12:32 Ur Specific [place] 1.005 (1.005-1.030) 04/16/24 12:32 Urine Protein 1+ (Negative) H 04/16/24 12:32 Urine Glucose (UA) 4+ (Normal) H 04/16/24 12:32 Urine Ketones 1+ (Negative) H 04/16/24 12:32 Urine Blood Neg (Negative) 04/16/24 12:32 Urine Nitrate Negative (Negative) 04/16/24 12:32 Urine Bilirubin Neg (Negative) 04/16/24 12:32 Urine Urobilinogen 1 mg/dL (Negative) H 04/16/24 12:32 Ur Leukocyte Esterase Negative (Negative) 04/16/24 12:32 Urine RBC None /hpf (0-2) 04/16/24 12:32 Urine WBC 0-4 /hpf (0-5) H 04/16/24 12:32 Ur Squamous Epith Cells 0-4 /hpf (0-5) H 04/16/24 12:32 Amorphous Sediment Not Reportable 04/16/24 12:32 Urine Bacteria None /hpf (NONE) 04/16/24 12:32 Serum Ketones Negative (Negative) 04/16/24 08:56 Coronavirus 229E (PCR) Not detected (NOT DETECT) 04/16/24 07:44 Hepatitis A IgM Ab Non-reactive (Nonreactive) 04/16/24 14:10 Hep Bs Antigen Non-reactive (Nonreactive) 04/16/24 14:10 Hep B Core IgM Ab Non-reactive (Nonreactive) 04/16/24 14:10 Hepatitis C Antibody Non-reactive (Nonreactive) 04/16/24 14:10 SARS-CoV-2 (PCR) Not detected (NOT DETECT) 04/16/24 07:44 Micro: Microbiology 04/16/24 11:30 Blood Culture - Preliminary Blood SPECIMEN COLLECTED 04/16/24 11:47 Blood Culture - Preliminary Blood SPECIMEN COLLECTED EKG 1: My Interpretation: Multifocal atrial rhythm with frequent PVCs. Diffuse nonspecific ST-T changes. Poor R wave progression. Features of LVH. Other data: The EKG A&P Assessment and plan (1) Elevated troponin: In view of her multiple risk factors, possibility of underlying coronary artery disease causing a [id number] myocardial infarction is a consideration. Patient may be treated with subcu Lovenox, beta-bimal, aspirin, statin and other symptomatic measures. (2) HOCM (hypertrophic obstructive cardiomyopathy): Patient had a LVOT gradient of 36 mmHg by echocardiogram recently. Optimizing the beta-bimal therapy would be appropriate. (3) Acute pancreatitis: Management as per the primary. Qualifiers: Acute pancreatitis complication: unspecified Pancreatitis type: u nspecified pancreatitis type Qualified Code(s): K85.90 - Acute pancreatitis without necrosis or infection, unspecified (4) Accelerated hypertension: Patient may be given IV hydralazine on a as needed basis. (5) DM2 (diabetes mellitus, type 2): Management as per the primary. Qualifiers: Diabetes mellitus complication status: with other specified complication Diabetes mellitus assisted insulin use: with assisted use Qualified Code(s): E11.69 - Type 2 diabetes mellitus with other specified complication; Z79.4 - skilled nursing (current) use of insulin (6) Aortic valve, bicuspid: She seems to have moderate aortic valve stenosis. May require any specific intervention at this point. Plan Other problems are History of seizure disorder Anxiety disorder Hypokalemia Multiple electrolyte imbalance Nausea and vomiting Leukocytosis An echocardiogram to evaluate LV function and rule out pathology would be appropriate. Once the acute pancreatitis is appropriately treated, may consider further cardiac workup. If she has significant wall motion normalities by echocardiogram, may consider a cardiac catheterization to further evaluate the coronary status and decide on further management. May continue on the symptomatic measures. 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
--- NOTE | 2024-04-16 18:54 | ECG_ITS ---
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 Measurements Intervals [place] Rate: 116 P: 19 DE: 145 QRS: -18 QRSD: 94 T: 113 QT: 363 QTc: 506 Interpretive Statements SINUS TACHYCARDIA WITH OCCASIONAL VENTRICULAR PREMATURE COMPLEXES LEFT VENTRICULAR HYPERTROPHY AND ST-T CHANGE [VOLTAGE CRITERIA PLUS ST/T ABNORMALITY] INFERIOR MYOCARDIAL INFARCTION , PROBABLY OLD [40+ ms Q WAVE AND/OR ST/T ABNORMALITY IN II/aVF] INTERPRETATION BASED ON A DEFAULT AGE OF 40 YEARS Compared to ECG 04/16/2024 12:21:51 Ventricular premature complex(es) now present ST (T wave) deviation still present Myocardial infarct finding still present Electronically Signed On 04-16-2024 23:21:45 CDT by Rahul Zambrano M.D. [id number] bebe
[2024-04-16] MEDS: dexmedeTOMIDine 0.9 % NaCL 400 MCG/100 ML PREMIX IV (19:09)
[2024-04-16 21:00] LABS: Glucose Point of Care 175 mg/dL (70-110)
[2024-04-16] MEDS: esmolol drip 2,500 MG/250 ML PREMIX 30.62 MG IV (21:44)
[2024-04-16] MEDS: morphine ER (12 HR) 30 mg tablet PO (22:14)
[2024-04-16] MEDS: LORazepam 2 mg/mL INJ 1 mL 0.5 MG IVP (23:07)
[2024-04-17] VITALS (64 sets, daily range): BP systolic 65–186; BP diastolic 42–138; PULSE 90–158; RESP 14–48; TEMP 36.5–37.6; O2SAT 87–100
[2024-04-17] MEDS: piperacillin-tazobactam 3.375 GM in sodium chloride 0.9% (plus) 50 ML IV ×3 (00:27→15:24)
[2024-04-17] MEDS: sodium chloride 0.9% 1,000 ML 200 ML IV ×5 (00:31→21:10)
[2024-04-17] MEDS: HYDROmorphone 1 mg/mL INJ 1 mL IVP (01:30)
[2024-04-17] MEDS: promethazine 25 mg/mL SDV 1 mL 12.5 MG IM (01:35)
[2024-04-17] MEDS: hyDRALAzine 20 mg/mL INJ 1 mL 10 MG IVP (02:05)
[2024-04-17] MEDS: ondansetron 2 mg/ML SDV 2 mL 4 MG IVP ×3 (03:00→15:22)
[2024-04-17] MEDS: levETIRAcetam 1,000 MG/100 ML PREMIX 400 MG IV ×2 (03:01→15:24)
[2024-04-17] MEDS: LORazepam 2 mg/mL INJ 1 mL 0.5 MG IVP ×6 (03:12→20:04)
[2024-04-17] MEDS: esmolol drip 2,500 MG/250 ML PREMIX 30.62 MG IV (03:12)
--- NOTE | 2024-04-17 03:26 | PC.NURSE ---
Patient has been complaining of pain all shift, unable to control pain with prn morphine and dilaudid. Dr. Greer was contacted and adjusted pain regimen to include patient's home morphine er dose. We have also been unable to control nausea and vomiting. Patient has also been very anxious, on precedex, and prn ativan. At 0000 patient stated she wanted to leave. This nurse educated patient on why she was in the ICU. DR. GREER contacted and came to talk to patient. Dr. Greer gave verbal order to give 1mg IVP Dilaudid once and promethazine 12.5mg IM ONCE. Patient is still has n/v at 0300, Dr Greer notified and ordered 1mg IVP Ativan ONCE, 0.5 PRN was already pulled up so an additional 0.5mg one time order was placed.
[2024-04-17 03:50] LABS: Glucose Point of Care 140 mg/dL (70-110)
[2024-04-17 03:59] LABS: Basophils % 0.1 %; Hematocrit 45.4 % (36-47); Lymphocytes # 4.4 10^3/uL (0.8-4.8); Lymphocytes % 21.3 %; Mean Corpuscular HGB Conc 32.6 g/dL (30-55); Mean Corpuscular Hemoglobin 27.2 pg (27-33); Mean Corpuscular Volume 83.3 fl (85-98); Mean Platelet Volume 12.3 fL (7.4-10.4); Monocytes # 1.5 10^3/uL (0.2-0.9); Monocytes % 7.3 %; Neutrophils # 14.47 10^3/uL (1.8-7.7); Neutrophils % 70.8 %; Nucleated Red Blood Cells % 0 %; Platelet Count 382 10^3/cmm (157-399); Red Blood Count 5.45 10^6/uL (3.85-5.65); Red Cell Distribution Width 15.8 % (12.1-15.1); White Blood Count 20.46 10^3/uL (3.29-11.43)
[2024-04-17] MEDS: enoxaparin 80 mg/0.8 mL Syringe 70 MG SUBCUT ×2 (04:07→15:22)
[2024-04-17 04:17] LABS: Alanine Aminotransferase 30 U/L (0-33); Albumin Level 3.3 g/dL (3.5-5.2); Alkaline Phosphatase 381 U/L (35-105); Anion Gap 23.9 (5-19); Aspartate Amino Transferase 61 U/L (0-32); Blood Urea Nitrogen 4 mg/dL (6-20); Calcium 7.8 mg/dL (8.5-10.5); Carbon Dioxide 18 mmol/L (22-29); Chloride 105 mmol/L (98-107); Creatinine Clr Calc Pharmacy 154.4609; Globulin 3.2 g/dL (1.3-4.6); Glomerular Filtration Rate 173.4 mL/min (90-130); Glucose 202 mg/dL (65-115); Magnesium 1.6 mg/dL (1.7-2.3); Osmolality Calculated 301 mOsm/kg (285-295); Phosphorus 1.6 mg/dL (2.5-4.5); Sodium 144 mmol/L (136-145); Total Bilirubin 0.7 mg/dL (0.15-1.2); Total Protein 6.5 g/dL (6.6-8.7)
[2024-04-17 04:24] LABS: Lipase 171 U/L (13-60)
[2024-04-17] MEDS: morphine 4 mg/mL SDV 1 mL IVP ×5 (04:32→23:40)
[2024-04-17 04:45] LABS: Potassium 2.9 mmol/L (3.5-5.1)
--- NOTE | 2024-04-17 04:53 | ECG_ITS ---
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 Measurements Intervals [place] Rate: 162 P: 0 LA: 0 QRS: -12 QRSD: 90 T: 131 QT: 298 QTc: 490 Interpretive Statements ATRIAL FIBRILLATION WITH RAPID VENTRICULAR RESPONSE WITH ABERRANT CONDUCTION OR VENTRICULAR PREMATURE COMPLEXES MODERATE VOLTAGE CRITERIA FOR LVH, CONSIDER NORMAL VARIANT [MEETS CRITERIA IN ONE OF: R(aVL), S(V1), R(V5), R(V5/V6)+S(V1)] ST DEVIATION AND MODERATE T-WAVE ABNORMALITY, CONSIDER LATERAL ISCHEMIA [-0.1+ mV T-WAVE IN I/aVL/V5/V6] CRITICAL TEST RESULT Compared to ECG 04/16/2024 18:59:14 Aberrant conduction of supraventricular beat(s) now present T-wave abnormality now presentPossible ischemia now present.Sinus tachycardia no longer present.ST (T wave) deviation no longer present Myocardial infarct finding no longer present Electronically Signed On 04-17-2024 21:25:41 CDT by Дмитрий Brito M.D. [id number]
[2024-04-17] MEDS: metoprolol tartrate 1 mg/1 mL SDV 5 mL 5 MG IVP ×2 (05:18→05:41)
--- NOTE | 2024-04-17 05:24 | PC.NURSE ---
Patient went into AFIB w/RVR up to 180s, EKG done, DR. Tee notified and ordered 5 mg IVP metoprolol.
[2024-04-17] MEDS: potassium chloride premix 100 ML 25 MEQ IV (05:31)
--- NOTE | 2024-04-17 05:39 | PC.NURSE ---
Patient had a 6 beat run of vtach before pushing metoprolol. After administration patient came back down to 110s but started having multiple pvc's and hr back up to 130s Dr. eTe notified and ordered 5mg IVP metoprolol.
--- NOTE | 2024-04-17 05:52 | ECG_ITS ---
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 Measurements Intervals [place] Rate: 107 P: 73 ID: 133 QRS: -13 QRSD: 98 T: 211 QT: 367 QTc: 492 Interpretive Statements SINUS TACHYCARDIA WITH OCCASIONAL VENTRICULAR PREMATURE COMPLEXES WITH OCCASIONAL SUPRAVENTRICULAR PREMATURE COMPLEXES LEFT VENTRICULAR HYPERTROPHY AND ST-T CHANGE [VOLTAGE CRITERIA PLUS ST/T ABNORMALITY] INFERIOR MYOCARDIAL INFARCTION , OF INDETERMINATE AGE [40+ ms Q WAVE AND/OR ST/T ABNORMALITY IN II/aVF] Compared to ECG 04/17/2024 04:53:57 ST (T wave) deviation now present Myocardial infarct finding now present Atrial fibrillation no longer present Aberrant conduction of supraventricular beat(s) no longer present T-wave abnormality no longer present Possible ischemia no longer present Electronically Signed On 04-17-2024 21:35:42 CDT by Дмитрий Brito M.D. [id number]
[2024-04-17] MEDS: magnesium sulfate premix 2 GM/50 ML PIGGYBACK IV (07:54)
[2024-04-17 07:58] LABS: Glucose Point of Care 140 mg/dL (70-110)
[2024-04-17] MEDS: morphine ER (12 HR) 30 mg tablet PO ×2 (08:15→17:13)
[2024-04-17] MEDS: insulin glargine 100 units/1 mL 10 UNIT SUBCUT ×2 (08:17→17:13)
[2024-04-17] MEDS: potassium phosphate (mMol PO4) 15 MMOL in sodium chloride 0.9% (100 ml) 100 ML 42 MMOL IV (08:20)
[2024-04-17] MEDS: bisacodyl 10 mg Supp PR (08:20)
[2024-04-17 11:12] LABS: Glucose Point of Care 128 mg/dL (70-110)
--- NOTE | 2024-04-17 15:11 | USCV_ITS ---
Obie Eleanor Age: 44 Gender: F : 1980 Exam Date: 04/17/2024 18:05 Ordering Phys: Brett Patton MD Technologist: ANNALISA Exam Location: [facility] [place] Indication: ? lv function BP: 115 / 97 HR: Rhythm: Sinus Technical Quality: Adequate MEASUREMENTS (Male / Female) Normal Values 2D ECHO LVOT Diameter 1.9 cm LV Ejection Fraction MOD 4C 55.1 % LV Ejection Fraction MOD 2C 54.5 % LV Ejection Fraction 2C AL 55.1 % LA Diameter 4.3 cm Aorta at Sinotubular Diameter 2.3 cm M-MODE LA Ao Ratio MM 1.5 AV Cusp Separation MM 1.9 cm FINDINGS Left Ventricle Moderate concentric left trickle hypertrophy. Hypokinetic apical septum and the LV apex. LV ejection fraction around 55% Right Ventricle The right ventricle is normal in size and function. Right Atrium The right atrium is normal in size. Left Atrium The left atrium is normal in size. Mitral Valve No gross abnormalities noted Aortic Valve Minimally thickened aortic valve Tricuspid Valve No gross abnormalities noted Pulmonic Valve Pulmonic valve not well visualized. Pericardium No pericardial effusion. Aorta Normal aortic annulus size. IVC Inferior vena cava not visualized. CONCLUSIONS Moderate concentric left trickle hypertrophy. Hypokinetic apical septum and the LV apex. LV ejection fraction around 55%. Minimally thickened aortic valve. No pericardial effusion Possibly normal chamber sizes No intracardiac masses The wall motion abnormalities appear to be new compared to the study from 03/06/2024 Dr Дмитрий Brito MD [facility] (Electronically Signed) Final Date: 17 April 2024 15:19 S
[2024-04-17 15:21] LABS: Glucose Point of Care 107 mg/dL (70-110)
[2024-04-17] MEDS: tizanidine 4 mg Tablet PO (18:11)
[2024-04-17] MEDS: esmolol drip 2,500 MG/250 ML PREMIX 20.41 MG IV (19:00)
--- NOTE | 2024-04-17 20:28 | P.PN_ITS ---
Subjective 2 Subjective: Still not feeling well. Still nausea vomiting, upper abdominal pain. States pain medication is not working. Vitals/I&O/Wt Last Vital Signs Temp 98.3 F 04/17/24 19:30 Pulse 121 H 04/17/24 20:15 Resp 20 H 04/17/24 20:15 BP 97/48 04/17/24 20:15 Pulse Ox 97 04/17/24 20:15 O2 Del Method Room Air 04/17/24 20:15 04/17/24 04/17/24 04/17/24 06:59 14:59 22:59 Intake Total 2414.272 / 7753.534 1330.695 / 6923.402 3983.000 / 2789.695 Output Total 1200 / 3600 2750 / 2750 Balance 1214.272 / 4153.534 1330.695 / 1330.695 -1291.000 / 39.695 Weight last 48 hrs Weight 72.575 kg Weight 68.039 kg Physical Exam 2 Const: COMMON NORMALS: patient oriented x3 and alert GENERAL APPEARANCE: c ooperative NUTRITIONAL APPEARANCE: obese ORIENTATION/CONSCIOUSNESS: Yes awake HENMT: COMMON NORMALS: oropharynx normal Neck/C-Spine: COMMON NORMALS: no JVD Resp: COMMON NORMALS: normal respiratory effort and clear to auscultation bilaterally AUSCULTATION: clear to auscultation bilaterally Cardio: COMMON NORMALS: no JVD, regular rhythm, S1 normal heart sound present, S2 normal heart sound present and No murmurs present (Cardio) RHYTHM: regular rhythm HEART SOUNDS: S1 normal heart sound present and S2 normal heart sound present GI: COMMON NORMALS: Normal to inspection, nondistended, normoactive bowel sounds present and Soft to palpation PALPATION: Yes Soft to palpation O THER: Tender periumbilical and epigastric area. Extremity: COMMON NORMALS: no joint enlargement and no pedal edema Neuro: COMMON NORMALS: patient oriented x3 and moves all extremities S ENSORIUM/ORIENTATION: Yes alert Skin: COMMON NORMALS: no rashes or lesions noted GENERAL SKIN EXAM: no rashes or lesions noted Urinary Catheter Management: Preston: Cath Placed During This Visit: yes Reason for Continuing Indwelling Catheter: Accurate Measurement of Urinary Output in Critically Ill Patients Urinary Catheter Date of Insertion: 04/16/24 Urinary Catheter Time of Insertion: 18:58 Data 04/17/24 02:57 04/17/24 02:57 Micro: Microbiology 04/16/24 11:30 Blood Culture - Preliminary Blood NEGATIVE TO DATE 04/16/24 11:47 Blood Culture - Preliminary Blood NEGATIVE TO DATE A&P Assessment and plan (1) Acute pancreatitis: She is still miserable with pain, nausea, vomiting, anxiety, requests for more pain medication stating it is not working. Reviewed vitals, CBC, CMP, magnesium, phosphorus, lipase requested. Consideration given to raising pain medication dosage, however, hypotensive, with risk of worsening hypotension, shock, organ dysfunction, held off on additional increase in pain medication. She did request for muscle relaxer, resumed home dose tizanidine with close monitoring in ICU to also help avoid withdrawal. Lipase reviewed, noticed with some improvement, although symptomatically improved. Continue bowel rest, IV hydration. Pain control as allowed by hemodynamics. Leukocytosis with worsening up to 20.46. Fever improved. Continue empiric antibiotic coverage as per discussion with her. Discussed with nursing, correctional counselor/case manager. Moderately severe acute pancreatitis with SIRS, fever 100.8, WBC 17.55, tachycardia 109, severe abdominal pain, pancreatitis findings on CT, lipase elevation 412, persistent nausea and vomiting despite treatment. Reviewed vitals, CBC, CMP, magnesium, lipase, troponin, CT abdomen pelvis, UA, ketones, coronavirus PCR panel, ER note, discussed with ER provider. With noted elevation of transaminases, alk phos, CT scan was discussed with radiology by ER provider, CBD appeared normal, low suspicion of choledocholithiasis/ascending cholangitis, abdominal ultrasound is requested. For now empirically antibiotic started with Zosyn due to SIRS without obvious source for sepsis/infection. Bowel rest, n.p.o., required 12 mg IV morphine in ER, will give IV Dilaudid for pain control. IV Zofran. IV fluids with LR. Received magnesium, recheck level. Check phosphorus. Repeat chemistry. Monitor hemodynamics with severe hypertension currently, at risk of shock, hypotension with severe pancreatitis. With recurrent pancreatitis, discussed with her would benefit from follow-up with gastroenterology to look for any other possible etiology, including possibility of autoimmune disease. Qualifiers: Acute pancreatitis complication: unspecified Pancreatitis type: u nspecified pancreatitis type Qualified Code(s): K85.90 - Acute pancreatitis without necrosis or infection, unspecified (2) Nausea and vomiting: Without improvement so far, continue bowel rest. Pain control, IV antiemetic. IV fluids. Unable to tolerate her medications, will transition Keppra to IV for now. Additionally unable to tolerate clonidine with likely rebound hypertension as well, discussed with her starting patch. (3) Transaminitis: Reviewed transaminases, with improvement. T. bili is normal. Alk phos down to 381. Pending ultrasound assessment for choledocholithiasis. Low likelihood based on CT as per radiologist. Obtain viral hepatitis panel. (4) Elevated troponin: Baseline troponin normal, at 2 hours troponin up to 71.4. Complete troponin series. Monitor on telemetry. Possible NSTEMI. Allergic to aspirin. On anticoagulation with Eliquis at home, will switch to Lovenox here. Obtain limited TTE. Cardiology is consulted. Has risk factors of coronary disease, would benefit from further risk stratification depending on clinical course and findings. (5) Hypomagnesemia: Requested magnesium replacement. Recheck level. Received magnesium. Recheck level. (6) High anion gap metabolic acidosis: High anion gap metabolic acidosis with severe lactic acidosis, lactic acid 5.5. Additional hydration with IV LR. Reassess. Repeat chemistry. Reassess kidney function. At risk of ALEIDA. Serum ketones are negative. Monitor blood glucose. Continue insulin. (7) Hypertensive urgency: Blood pressures with fluctuation. Esmolol had to be held. But again becoming tachycardic, small transiently resumed. Continue IV hydration at current time. Esmolol drip as needed for any significant blood pressure spikes, tachycardia. Did not respond to IV metoprolol pushes in ER. Started on esmolol drip. Continue small drip, monitor blood pressure. Likely component of rebound hypertension with clonidine which she has been unable to take due to nausea and vomiting. Discussed with her starting patch. Plan Diabetes: N.p.o. for time being. Reduce insulin Lantus dose to 10 units twice daily. Accu-Cheks. Sliding scale insulin. Epilepsy: Unable to keep down oral medications. Switch Keppra to IV. Continue home brivaracetam if tolerating Aortic regurgitation, bicuspid aortic valve. Attestations 2 Medical Necessity Statement*: Plan of moderate to severe pancreatitis with systemic symptoms, SIRS, and symptoms. Coding Level of Care Code Critical Care >/= 30 minutes Critical care time (in minutes): 35 The high probability of a clinically significant, sudden or life threatening deterioration, as referenced in this documentation, required my full and direct attention, intervention and personal management. The critical care time shown is in addition to time spent performing any reported separately billable procedures and includes the following: [x] Data and vital sign review and interpretation [x ] Patient assessment, examination and intervention [x] Medication orders and management [x] Patient/Family updates as able [x] Care Coordination and Documentation. Diagnoses Acute pancreatitis, unspecified complication status, unspecified pancreatitis type K85.90 Acute pancreatitis complication: unspecified Pancreatitis type: unspecified pancreatitis type Nausea and vomiting R11.2 Transaminitis R74.01 Elevated troponin R79.89 Hypomagnesemia E83.42 High anion gap metabolic acidosis E87.29 Hypertensive urgency I16.0
--- NOTE | 2024-04-17 20:59 | P.PN_ITS ---
Subjective 2 Subjective: Patient continues to have the abdominal pain and agitation. Denies any chest pain or shortness of breath. The sinus tachycardia is improving. Blood pressure seems to be slowly getting under control. Had echocardiogram today. Was found to have hypokinetic LV apex. Overall ejection fraction was around 55%. Medications: Medication Review Details: Current Medications Bisacodyl (Bisacodyl 10 Mg Supp) 10 mg [place] DAILY LEANDRA Last Admin: 04/17/24 08:20 Dose: 10 mg Clonidine HCl (Clonidine 0.1 Mg/24 Hr Patch) 1 patch TRANSDERMA Q7D LEANDRA Last Admin: 04/16/24 15:59 Dose: Not Given Enoxaparin Sodium (Enoxaparin 80 Mg/0.8 Ml Syringe) 70 mg SUBCUT Q12H LEANDRA Last Admin: 04/17/24 15:22 Dose: 70 mg Glucagon (Glucagon 1 Mg/Ml Kit 1 Ml) 1 mg IM ONCE PRN; Protocol PRN Reason: Adult Acute Hypoglycemia Nursing Prot. Esmolol HCl (Brevibloc Drip) 2,500 mg in 250 mls @ 0 mls/hr IV .Q0M LEANDRA; Protocol Last Titration: 04/17/24 20:19 Dose: 0 mcg/kg/min, 0 mls/hr Sodium Chloride (Sodium Chloride 0.9%) 1,000 mls @ 200 mls/hr IV .Q5H LEANDRA Last Admin: 04/17/24 16:07 Dose: 200 mls/hr Piperacillin Sod/Tazobactam (Sod 3.375 gm/ Sodium Chloride) 50 mls @ 12.5 mls/hr IV Q8H LEANDRA; Protocol Last Infusion: 04/17/24 19:24 Dose: Infused Levetiracetam (Keppra) 1,000 mg in 100 mls @ 400 mls/hr IV Q12H LEANDRA Last Infusion: 04/17/24 15:39 Dose: Infused Dextrose (D5w) 500 mls @ 0 mls/hr IV ONCE PRN; Protocol PRN Reason: Adult Acute Hypoglycemia Prot Dextrose (D10w) 125 mls @ 750 mls/hr IV PRN PRN; Protocol PRN Reason: Adult Acute Hypoglycemia Nursing Protocol Dextrose (D10w) 250 mls @ 1,000 mls/hr IV PRN PRN; Protocol PRN Reason: Adult Acute Hypoglycemia Nursing Protocol Dexmedetomidine/Sodium Chloride (Precedex) 400 mcg in 100 mls @ 0 mls/hr IV .Q0M [facility]; Protocol Last Titration: 04/17/24 09:06 Dose: Infused Insulin Glargine (Insulin Glargine 100 Units/1 Ml) 10 unit SUBCUT BID [facility] Last Admin: 04/17/24 17:13 Dose: 10 unit Insulin Human Lispro (Insulin Lispro 100 Unit/1 Ml) 0 unit SUBCUT Q6H [facility]; Protocol Last Admin: 04/17/24 15:45 Dose: Not Given Lorazepam (Lorazepam 2 Mg/Ml Inj 1 Ml) 0.5 mg IVP Q4H PRN PRN Reason: ANXIETY Stop: 04/18/24 14:33 Last Admin: 04/17/24 20:04 Dose: 0.5 mg Morphine Sulfate (Morphine 4 Mg/Ml Sdv 1 Ml) 4 mg IVP Q4H PRN PRN Reason: SEVERE PAIN Last Admin: 04/17/24 19:12 Dose: 4 mg Morphine Sulfate (Morphine Er (12 Hr) 30 Mg Tablet) 30 mg PO BID [facility] Last Admin: 04/17/24 17:13 Dose: 30 mg Non-Formulary Medication (Brivaracetam [Briviact]) 25 mg PO DAILY [facility] Last Admin: 04/17/24 07:45 Dose: Not Given Ondansetron HCl (Ondansetron 2 Mg/Ml Sdv 2 Ml) 4 mg IVP Q6H PRN PRN Reason: NAUSEA AND VOMITING Last Admin: 04/17/24 15:22 Dose: 4 mg Tizanidine HCl (Tizanidine 4 Mg Tablet) 4 mg PO TID PRN PRN Reason: MUSCLE SPASMS Last Admin: 04/17/24 18:11 Dose: 4 mg Vitals/I&O/Wt Last Vital Signs Temp 98.3 F 04/17/24 19:30 Pulse 121 H 04/17/24 20:15 Resp 20 H 04/17/24 20:15 BP 97/48 04/17/24 20:15 Pulse Ox 97 04/17/24 20:15 O2 Del Method Room Air 04/17/24 20:15 04/17/24 04/17/24 04/17/24 06:59 14:59 22:59 Intake Total 7114.272 / 7753.534 1330.695 / 3856.900 4715.000 / 2789.695 Output Total 1200 / 3600 2750 / 2750 Balance 1214.272 / 4153.534 1330.695 / 1330.695 -1291.000 / 39.695 Weight last 48 hrs Weight 160 lb Weight 150 lb Physical Exam 2 Narrative: GENERAL: The patient is alert and oriented times three. Still having abdominal pain but seems to be improving HEENT: No significant pallor, icterus or lymphadenopathy.Oral cavity: There are no mucous membrane lesions. NECK: Trachea appears to be central. No masses noted. No JVD or thyromegaly appreciated. RESPIRATORY: Chest is symmetrical. No intercostals muscle retraction or any accessory muscle activation. There is no chest wall tenderness. Breath sounds are heard bilaterally. No rales or rhonchi heard. No evidence of any consolidation. BREASTS: Deferred. HEART: The heart sounds are normal. No S3 or S4. No significant murmurs. No pericardial rub ABDOMEN: Diffuse tenderness in the epigastric and periumbilical regions . No organomegaly appreciated. Bowel sounds are normally heard. : Deferred. RECTAL: Deferred. LYMPHATIC: No lymphadenopathy noted in the neck. EXTREMITIES: No edema or cyanosis. MUSCULOSKELETAL: No acute joint deformities or swelling SKIN: There are no significant rashes or ecchymosis NEUROPSYCHIATRIC: Patient is complaining about pain. Appears very uncomfortable, extremely nervous. Urinary Catheter Management: Preston: Cath Placed During This Visit: yes Reason for Continuing Indwelling Catheter: Accurate Measurement of Urinary Output in Critically Ill Patients Urinary Catheter Date of Insertion: 04/16/24 Urinary Catheter Time of Insertion: 18:58 Data 04/17/24 02:57 04/17/24 02:57 Other Labs: Laboratory Last Values WBC 20.46 10^3/uL (3.29-11.43) H 04/17/24 02:57 RBC 5.45 10^6/uL (3.85-5.65) 04/17/24 02:57 Hgb 14.80 g/dL (11.27-16.99) 04/17/24 02:57 Hct 45.4 % (36-47) 04/17/24 02:57 MCV 83.3 fl (85-98) L 04/17/24 02:57 MCH 27.2 pg (27-33) 04/17/24 02:57 MCHC 32.6 g/dL (30-55) 04/17/24 02:57 RDW 15.8 % (12.1-15.1) H 04/17/24 02:57 Plt Count 382 10^3/cmm (157-399) 04/17/24 02:57 MPV 12.3 fL (7.4-10.4) H 04/17/24 02:57 Neut % (Auto) 70.8 % 04/17/24 02:57 Lymph % (Auto) 21.3 % 04/17/24 02:57 [place] % (Auto) 7.3 % 04/17/24 02:57 Eos % (Auto) 0.0 % 04/17/24 02:57 Baso % (Auto) 0.1 % 04/17/24 02:57 Neut # (Auto) 14.47 10^3/uL (1.8-7.7) H 04/17/24 02:57 Lymph # (Auto) 4.4 10^3/uL (0.8-4.8) 04/17/24 02:57 [place] # (Auto) 1.5 10^3/uL (0.2-0.9) H 04/17/24 02:57 Eos # (Auto) 0.0 10^3/uL (0.0-0.8) 04/17/24 02:57 Baso # (Auto) 0.0 10^3/uL (0.0-0.1) 04/17/24 02:57 Nucleated RBC % (auto) 0 % 04/17/24 02:57 Nucleated RBCs # 0.0 /100WBC 04/17/24 02:57 Sodium 144 mmol/L (136-145) 04/17/24 02:57 Potassium 2.9 mmol/L (3.5-5.1) L 04/17/24 02:57 Chloride 105 mmol/L (98-107) 04/17/24 02:57 Carbon Dioxide 18 mmol/L (22-29) L 04/17/24 02:57 Anion Gap 23.9 (5-19) H 04/17/24 02:57 BUN 4 mg/dL (6-20) L 04/17/24 02:57 Creatinine 0.4 mg/dL (0.5-0.9) L 04/17/24 02:57 GFR Calculation 173.4 mL/min (90-130) H 04/17/24 02:57 Glucose 202 mg/dL (65-115) H 04/17/24 02:57 POC Glucose 107 mg/dL (70-110) 04/17/24 15:16 Calculated Osmolality 301 mOsm/kg (285-295) H 04/17/24 02:57 Lactic Acid 5.5 mmol/L (0.5-2.2) H* 04/16/24 11:30 Lactic Acid (Sepsis) 4.2 mmol/L (0.5-2.2) H* 04/16/24 14:10 Calcium 7.8 mg/dL (8.5-10.5) L 04/17/24 02:57 Phosphorus 1.6 mg/dL (2.5-4.5) L 04/17/24 02:57 Magnesium 1.6 mg/dL (1.7-2.3) L 04/17/24 02:57 Total Bilirubin 0.7 mg/dL (0.15-1.2) 04/17/24 02:57 AST 61 U/L (0-32) H 04/17/24 02:57 ALT 30 U/L (0-33) 04/17/24 02:57 Alkaline Phosphatase 381 U/L (35-105) H 04/17/24 02:57 Creatine Kinase 225 U/L (26-192) H 04/16/24 14:10 Troponin T Baseline 16 ng/L (0-10) H 04/16/24 08:56 Troponin T 120 Minute 71.40 ng/L (0-10) H 04/16/24 11:30 Delta Troponin T 55.40 ABS# (0-10) H* 04/16/24 11:30 Troponin T Hi Sens 6Hr 148.9 ng/L (0-10) H 04/16/24 14:10 Troponin T Hi Sens 6Hr Delta 132.9 ng/L (0-12) H* 04/16/24 14:10 NT-Pro-B Natriuret Pep 1894 pg/mL (0-125) H 04/16/24 08:56 Total Protein 6.5 g/dL (6.6-8.7) L 04/17/24 02:57 Albumin 3.3 g/dL (3.5-5.2) L 04/17/24 02:57 Globulin 3.2 g/dL (1.3-4.6) 04/17/24 02:57 Triglycerides 132 mg/dL (0-150) 04/16/24 08:56 Lipase 171 U/L (13-60) H 04/17/24 02:57 Urine Color Yellow (Yellow) 04/16/24 12:32 Urine Appearance Clear (CLEAR) 04/16/24 12:32 Urine pH 5 (5-7) 04/16/24 12:32 Ur Specific [place] 1.005 (1.005-1.030) 04/16/24 12:32 Urine Protein 1+ (Negative) H 04/16/24 12:32 Urine Glucose (UA) 4+ (Normal) H 04/16/24 12:32 Urine Ketones 1+ (Negative) H 04/16/24 12:32 Urine Blood Neg (Negative) 04/16/24 12:32 Urine Nitrate Negative (Negative) 04/16/24 12:32 Urine Bilirubin Neg (Negative) 04/16/24 12:32 Urine Urobilinogen 1 mg/dL (Negative) H 04/16/24 12:32 Ur Leukocyte Esterase Negative (Negative) 04/16/24 12:32 Urine RBC None /hpf (0-2) 04/16/24 12:32 Urine WBC 0-4 /hpf (0-5) H 04/16/24 12:32 Ur Squamous Epith Cells 0-4 /hpf (0-5) H 04/16/24 12:32 Amorphous Sediment Not Reportable 04/16/24 12:32 Urine Bacteria None /hpf (NONE) 04/16/24 12:32 Serum Ketones Negative (Negative) 04/16/24 08:56 Coronavirus 229E (PCR) Not detected (NOT DETECT) 04/16/24 07:44 Hepatitis A IgM Ab Non-reactive (Nonreactive) 04/16/24 14:10 Hep Bs Antigen Non-reactive (Nonreactive) 04/16/24 14:10 Hep B Core IgM Ab Non-reactive (Nonreactive) 04/16/24 14:10 Hepatitis C Antibody Non-reactive (Nonreactive) 04/16/24 14:10 SARS-CoV-2 (PCR) Not detected (NOT DETECT) 04/16/24 07:44 Micro: Microbiology 04/16/24 11:30 Blood Culture - Preliminary Blood NEGATIVE TO DATE 04/16/24 11:47 Blood Culture - Preliminary Blood NEGATIVE TO DATE A&P Assessment and plan (1) Elevated troponin: In view of her multiple risk factors, possibility of underlying coronary artery disease causing a [id number] myocardial infarction is a consideration. Patient may be treated with subcu Lovenox, beta-bimal, aspirin, statin and other symptomatic measures. Possibility of a Takotsubo syndrome cannot be excluded. May continue on the conservative measures. May consider cardiac catheterization/Myocardial perfusion imaging once the pancreatitis is appropriately treated. (2) HOCM (hypertrophic obstructive cardiomyopathy): Patient had a LVOT gradient of 36 mmHg by echocardiogram recently. Optimizing the beta-bimal therapy would be appropriate. (3) Acute pancreatitis: Symptoms slowly improving. Management as per the primary Qualifiers: Acute pancreatitis complication: unspecified Pancreatitis type: u nspecified pancreatitis type Qualified Code(s): K85.90 - Acute pancreatitis without necrosis or infection, unspecified (4) Accelerated hypertension: Patient may be given IV hydralazine on a as needed basis. The blood pressure seems to be getting under control. May be started on oral metoprolol, when she can tolerate the p.o. medications (5) DM2 (diabetes mellitus, type 2): Management as per the primary. 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 May require any specific intervention at this point. Plan Other problems are History of seizure disorder Anxiety disorder Hypokalemia, on potassium supplement Multiple electrolyte imbalance Nausea and vomiting, improving Leukocytosis, seems to be getting worse Since her cardiac status seems to be fairly stable, may continue on the current measures. Patient clinical progress, further recommendations will be made. 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
[2024-04-17 21:35] LABS: Glucose Point of Care 77 mg/dL (70-110)
[2024-04-18] VITALS (95 sets, daily range): BP systolic 61–229; BP diastolic 38–199; PULSE 93–157; RESP 10–34; TEMP 36.4–37.1; O2SAT 83–100
[2024-04-18] MEDS: LORazepam 2 mg/mL INJ 1 mL 0.5 MG IVP ×4 (00:15→16:47)
[2024-04-18] MEDS: piperacillin-tazobactam 3.375 GM in sodium chloride 0.9% (plus) 50 ML IV ×3 (00:22→15:28)
--- NOTE | 2024-04-18 00:35 | PC.NURSE ---
Elevated HR: Notified Dr. Tee of pain 07/12, increased anxiety, and elevated HR @0030. New order for Dilaudid 0.5mg IVP ONCE NOW.
[2024-04-18] MEDS: HYDROmorphone 1 mg/mL INJ 1 mL 0.5 MG IVP ×3 (00:58→18:35)
[2024-04-18] MEDS: ondansetron 2 mg/ML SDV 2 mL 4 MG IVP ×3 (01:02→15:33)
[2024-04-18] MEDS: levETIRAcetam 1,000 MG/100 ML PREMIX 400 MG IV ×2 (02:01→15:28)
[2024-04-18] MEDS: tizanidine 4 mg Tablet PO ×3 (02:02→21:03)
[2024-04-18] MEDS: sodium chloride 0.9% 1,000 ML 200 ML IV ×2 (02:22→08:38)
[2024-04-18 02:27] LABS: Glucose Point of Care 71 mg/dL (70-110)
--- NOTE | 2024-04-18 02:38 | PC.NURSE ---
Addendum entered by Soumya Bwoen RN 04/18/24 04:23: Pt fell asleep, order from Dr. Tee to not give the 1mg IVP Dilaudid. Addendum entered by Soumya Bowen RN 04/18/24 02:41: Pt screaming help me while this RN is at bedside explaining plan for additional pain medication. Original Note: 07/12 Pain: Phone call w/ Dr. Tee regarding pain, New order for 0.5mg IVP Dilaudid ONCE Now and @0340 to give 1mg Dilaudid in place of Q4HR Morphine dose.
[2024-04-18] MEDS: enoxaparin 80 mg/0.8 mL Syringe 70 MG SUBCUT ×2 (04:51→15:28)
[2024-04-18 05:07] LABS: Glucose Point of Care 68 mg/dL (70-110)
[2024-04-18 05:12] LABS: Basophils % 0.2 %; Hematocrit 37.5 % (36-47); Lymphocytes # 3.2 10^3/uL (0.8-4.8); Lymphocytes % 19.1 %; Mean Corpuscular HGB Conc 32.5 g/dL (30-55); Mean Corpuscular Hemoglobin 28.2 pg (27-33); Mean Corpuscular Volume 86.8 fl (85-98); Mean Platelet Volume 11.6 fL (7.4-10.4); Monocytes # 1.5 10^3/uL (0.2-0.9); Monocytes % 8.9 %; Neutrophils # 11.72 10^3/uL (1.8-7.7); Neutrophils % 71.3 %; Nucleated Red Blood Cells % 0 %; Platelet Count 243 10^3/cmm (157-399); Red Blood Count 4.32 10^6/uL (3.85-5.65); Red Cell Distribution Width 16.2 % (12.1-15.1); White Blood Count 16.45 10^3/uL (3.29-11.43)
[2024-04-18 05:44] LABS: Lipase 39 U/L (13-60)
[2024-04-18 05:46] LABS: Alanine Aminotransferase 18 U/L (0-33); Albumin Level 2.8 g/dL (3.5-5.2); Alkaline Phosphatase 249 U/L (35-105); Aspartate Amino Transferase 40 U/L (0-32); Blood Urea Nitrogen 4 mg/dL (6-20); Calcium 7.5 mg/dL (8.5-10.5); Carbon Dioxide 20 mmol/L (22-29); Chloride 111 mmol/L (98-107); Creatinine Clr Calc Pharmacy 162.1721; Globulin 2.3 g/dL (1.3-4.6); Glomerular Filtration Rate 173.4 mL/min (90-130); Glucose 97 mg/dL (65-115); Magnesium 1.7 mg/dL (1.7-2.3); Osmolality Calculated 299 mOsm/kg (285-295); Sodium 146 mmol/L (136-145); Total Bilirubin 0.5 mg/dL (0.15-1.2); Total Protein 5.1 g/dL (6.6-8.7)
[2024-04-18] MEDS: morphine 4 mg/mL SDV 1 mL IVP ×4 (06:31→20:07)
[2024-04-18] MEDS: morphine ER (12 HR) 30 mg tablet PO ×2 (08:48→17:23)
[2024-04-18] MEDS: dextrose 5%-sod chloride 0.45% 1,000 ML 100 ML IV ×2 (10:36→20:55)
[2024-04-18] MEDS: nitroglycerin drip 50 MG/250 ML PREMIX 6 MG IV (10:38)
[2024-04-18] MEDS: magnesium sulfate premix 2 GM/50 ML PIGGYBACK IV (10:44)
[2024-04-18] MEDS: lidocaine 1% 5 ML in potassium chloride premix 100 ML 52.5 ML IV (10:53)
--- NOTE | 2024-04-18 12:05 | PC.NURSE ---
Blood sugar 69. Apple juice given. Will continued to monitor.
--- NOTE | 2024-04-18 12:06 | PC.NURSE ---
Blood sugar 66 mg/dl. Aplle juice given to pt. She is slowly sipping.
--- NOTE | 2024-04-18 13:05 | PC.SOCIAL ---
IMM Update pg 2 of IMM updated and reviewed w/ patient. Copy provided and copy dated, initialed and placed in chart.
--- NOTE | 2024-04-18 13:25 | P.PN_ITS ---
Subjective 2 Subjective: She is feeling slightly better today. She has been able to tolerate some oral medications. She has been struggling significantly with anxiety. Requests for additional measures to help with anxiety. He is not on anything at home specifically for this problem. Abdomen is otherwise still somewhat sore, she is not vomiting. Wants to try some apple juice. Vitals/I&O/Wt Last Vital Signs Temp 97.6 F 04/18/24 04:53 Pulse 128 H 04/18/24 06:15 Resp 23 H 04/18/24 10:46 BP 107/53 04/18/24 06:00 Pulse Ox 98 04/18/24 06:31 O2 Del Method Room Air 04/18/24 06:15 04/17/24 04/18/24 04/18/24 22:59 06:59 14:59 Intake Total 2419.000 / 3749.695 1760.323 / 5510.018 990.667 / 990.667 Output Total 2750 / 2750 1300 / 4050 Balance -331.000 / 999.695 460.323 / 1460.018 990.667 / 990.667 Weight last 48 hrs Weight 74.843 kg Weight 72.575 kg Physical Exam 2 Narrative: Antalgic positioning, whimpering due to pain. Const: COMMON NORMALS: patient oriented x3 and alert GENERAL APPEARANCE: c ooperative NUTRITIONAL APPEARANCE: obese ORIENTATION/CONSCIOUSNESS: Yes awake HENMT: COMMON NORMALS: oropharynx normal Neck/C-Spine: COMMON NORMALS: no JVD Resp: COMMON NORMALS: normal respiratory effort and clear to auscultation bilaterally AUSCULTATION: clear to auscultation bilaterally Cardio: COMMON NORMALS: no JVD, regular rhythm, S1 normal heart sound present, S2 normal heart sound present and No murmurs present (Cardio) RHYTHM: regular rhythm HEART SOUNDS: S1 normal heart sound present and S2 normal heart sound present GI: COMMON NORMALS: Normal to inspection, nondistended, normoactive bowel sounds present and Soft to palpation PALPATION: Yes Soft to palpation O THER: Tender periumbilical and epigastric area. Extremity: COMMON NORMALS: no joint enlargement and no pedal edema Neuro: COMMON NORMALS: patient oriented x3 and moves all extremities S ENSORIUM/ORIENTATION: Yes alert Skin: COMMON NORMALS: no rashes or lesions noted GENERAL SKIN EXAM: no rashes or lesions noted Urinary Catheter Management: Preston: Cath Placed During This Visit: yes Reason for Continuing Indwelling Catheter: Accurate Measurement of Urinary Output in Critically Ill Patients Urinary Catheter Date of Insertion: 04/16/24 Urinary Catheter Time of Insertion: 18:58 Data 04/18/24 04:42 04/18/24 04:42 Micro: Microbiology 04/16/24 11:30 Blood Culture - Preliminary Blood NEGATIVE TO DATE 04/16/24 11:47 Blood Culture - Preliminary Blood NEGATIVE TO DATE A&P Assessment and plan (1) Acute pancreatitis: Reviewed vitals, CBC, CMP, magnesium, lipase. Lipase continue to improve. Nausea slightly better, no additional vomiting, tolerating a few oral medications, but still nauseated. She would like to try some apple juice. She is bothered by crippling anxiety. Still having pain. We will go ahead and give a cautious trial of clear liquid, discussed exercising caution with current her . She was becoming hypoglycemic today, goes down to 68, additionally hypernatremic hyperchloremic with persistent acidosis, bicarb 20, anion gap 18. Hyperchloremic acidosis. Switch IV fluids to D5 half-normal. Monitor for fluid overload with continued IV hydration. She has been off her diuretic. Still tachycardia, 128, blood pressure with some fluctuation but little bit better than yesterday. On and off esmolol drip support as needed. Needed overnight. Will try to resume some of her oral home medications. Resume metoprolol. Lipase reviewed, noticed with some improvement, although symptomatically improved. Continue bowel rest, IV hydration. Pain control as allowed by hemodynamics. Leukocytosis with worsening up to 20.46. Fever improved. Continue empiric antibiotic coverage as per discussion with her. Discussed with nursing, manager case. Moderately severe acute pancreatitis with SIRS, fever 100.8, WBC 17.55, tachycardia 109, severe abdominal pain, pancreatitis findings on CT, lipase elevation 412, persistent nausea and vomiting despite treatment. Reviewed vitals, CBC, CMP, magnesium, lipase, troponin, CT abdomen pelvis, UA, ketones, coronavirus PCR panel, ER note, discussed with ER provider. With noted elevation of transaminases, alk phos, CT scan was discussed with radiology by ER provider, CBD appeared normal, low suspicion of choledocholithiasis/ascending cholangitis, abdominal ultrasound is requested. For now empirically antibiotic started with Zosyn due to SIRS without obvious source for sepsis/infection. Bowel rest, n.p.o., required 12 mg IV morphine in ER, will give IV Dilaudid for pain control. IV Zofran. IV fluids with LR. Received magnesium, recheck level. Check phosphorus. Repeat chemistry. Monitor hemodynamics with severe hypertension currently, at risk of shock, hypotension with severe pancreatitis. With recurrent pancreatitis, discussed with her would benefit from follow-up with gastroenterology to look for any other possible etiology, including possibility of autoimmune disease. Qualifiers: Acute pancreatitis complication: unspecified Pancreatitis type: u nspecified pancreatitis type Qualified Code(s): K85.90 - Acute pancreatitis without necrosis or infection, unspecified (2) Elevated troponin: She tells me they have discussed with cardiology regarding NSTEMI, recommendation for additional assessment with coronary angiography once she is doing a bit better from perspective of pancreatitis. She will need to be able to lay still, nausea has been improving, but she has been dealing with some significant anxiety. Add Xanax as needed. Ativan for severe anxiety. Precedex if needed. Baseline troponin normal, at 2 hours troponin up to 71.4. Complete troponin series. Monitor on telemetry. Possible NSTEMI. Allergic to aspirin. On anticoagulation with Eliquis at home, will switch to Lovenox here. Obtain limited TTE. Cardiology is consulted. Has risk factors of coronary disease, would benefit from further risk stratification depending on clinical course and findings. (3) Nausea and vomiting: Nausea with some improvement but she has been bothered by crippling anxiety. Without improvement so far, continue bowel rest. Pain control, IV antiemetic. IV fluids. Unable to tolerate her medications, will transition Keppra to IV for now. Additionally unable to tolerate clonidine with likely rebound hypertension as well, discussed with her starting patch. (4) Transaminitis: Improving Reviewed transaminases, with improvement. T. bili is normal. Alk phos down to 381. Pending ultrasound assessment for choledocholithiasis. Low likelihood based on CT as per radiologist. Obtain viral hepatitis panel. (5) Hypomagnesemia: Requested magnesium replacement. Recheck level. Received magnesium. Recheck level. (6) High anion gap metabolic acidosis: High anion gap metabolic acidosis with severe lactic acidosis, lactic acid 5.5. Additional hydration with IV LR. Reassess. Repeat chemistry. Reassess kidney function. At risk of ALEIDA. Serum ketones are negative. Monitor blood glucose. Continue insulin. (7) Hypertensive urgency: Blood pressures with fluctuation. Esmolol had to be held. Needed overnight again. But again becoming tachycardic, small transiently resumed. Continue IV hydration at current time. Esmolol drip as needed for any significant blood pressure spikes, tachycardia. Did not respond to IV metoprolol pushes in ER. Started on esmolol drip. Continue small drip, monitor blood pressure. Likely component of rebound hypertension with clonidine which she has been unable to take due to nausea and vomiting. Discussed with her starting patch. Plan Diabetes: N.p.o. for time being. Reduce insulin Lantus dose to 10 units twice daily. Accu-Cheks. Sliding scale insulin. Epilepsy: Unable to keep down oral medications. Switch Keppra to IV. Continue home brivaracetam if tolerating Aortic regurgitation, bicuspid aortic valve. Attestations 2 Medical Necessity Statement*: Continue admission for assessment and management of acute pancreatitis, metabolic acidosis, hyperchloremic acidosis, hypoglycemia, NSTEMI pending additional assessment with coronary angiography. Coding Level of Care Code Critical Care >/= 30 minutes Critical care time (in minutes): 35 The high probability of a clinically significant, sudden or life threatening deterioration, as referenced in this documentation, required my full and direct attention, intervention and personal management. The critical care time shown is in addition to time spent performing any reported separately billable procedures and includes the following: [x] Data and vital sign review and interpretation [x ] Patient assessment, examination and intervention [x] Medication orders and management [x] Patient/Family updates as able [x] Care Coordination and Documentation. Diagnoses Acute pancreatitis, unspecified complication status, unspecified pancreatitis type K85.90 Acute pancreatitis complication: unspecified Pancreatitis type: unspecified pancreatitis type Elevated troponin R79.89 Nausea and vomiting R11.2 Transaminitis R74.01 Hypomagnesemia E83.42 High anion gap metabolic acidosis E87.29 Hypertensive urgency I16.0
[2024-04-18] MEDS: ALPRAZolam 0.5 mg Tablet PO (15:23)
[2024-04-18] MEDS: fluticasone nasal spray 16gm Btl 2 SPRAY NASAL (16:50)
[2024-04-18] MEDS: ALPRAZolam 0.5 mg Tablet 1 MG PO (16:52)
[2024-04-18] MEDS: metoprolol tartrate 25 mg Tablet 12.5 MG PO (17:23)
--- NOTE | 2024-04-18 17:34 | P.PN_ITS ---
Subjective 2 Subjective: Patient seems to be feeling little better. Still has a lot of abdominal pain. She also may have a low substernal chest pain. EKG shows diffuse nonspecific ST-T changes and occasional PVCs. Medications: Medication Review Details: Current Medications Alprazolam (Alprazolam 0.5 Mg Tablet) 1 mg PO TID PRN PRN Reason: ANXIETY Last Admin: 04/18/24 16:52 Dose: 1 mg Bisacodyl (Bisacodyl 10 Mg Supp) 10 mg GA DAILY [facility] Last Admin: 04/18/24 08:48 Dose: Not Given Clonidine HCl (Clonidine 0.1 Mg/24 Hr Patch) 1 patch TRANSDERMA Q7D [facility] Last Admin: 04/16/24 15:59 Dose: Not Given Enoxaparin Sodium (Enoxaparin 80 Mg/0.8 Ml Syringe) 70 mg SUBCUT Q12H [facility] Last Admin: 04/18/24 15:28 Dose: 70 mg Fluticasone Propionate (Fluticasone Nasal [place] 16gm Btl) 2 spray NASAL DAILY [facility] Last Admin: 04/18/24 16:50 Dose: 2 spray Glucagon (Glucagon 1 Mg/Ml Kit 1 Ml) 1 mg IM ONCE PRN; Protocol PRN Reason: Adult Acute Hypoglycemia Nursing Prot. Esmolol HCl (Brevibloc Drip) 2,500 mg in 250 mls @ 0 mls/hr IV .Q0M [facility]; Protocol Last Titration: 04/18/24 12:16 Dose: Infused Piperacillin Sod/Tazobactam (Sod 3.375 gm/ Sodium Chloride) 50 mls @ 12.5 mls/hr IV Q8H [facility]; Protocol Last Admin: 04/18/24 15:28 Dose: 12.5 mls/hr Levetiracetam (Keppra) 1,000 mg in 100 mls @ 400 mls/hr IV Q12H [facility] Last Infusion: 04/18/24 16:32 Dose: Infused Dextrose (D5w) 500 mls @ 0 mls/hr IV ONCE PRN; Protocol PRN Reason: Adult Acute Hypoglycemia Prot Dextrose (D10w) 125 mls @ 750 mls/hr IV PRN PRN; Protocol PRN Reason: Adult Acute Hypoglycemia Nursing Protocol Dextrose (D10w) 250 mls @ 1,000 mls/hr IV PRN PRN; Protocol PRN Reason: Adult Acute Hypoglycemia Nursing Protocol Dexmedetomidine/Sodium Chloride (Precedex) 400 mcg in 100 mls @ 0 mls/hr IV .Q0M [facility]; Protocol Last Titration: 04/17/24 09:06 Dose: Infused Dextrose/Sodium Chloride (Dextrose 5%-Sod Chloride 0.45%) 1,000 mls @ 100 mls/hr IV .Q10H [facility] Last Admin: 04/18/24 10:36 Dose: 100 mls/hr Nitroglycerin/Dextrose (Nitroglycerin Drip) 50 mg in 250 mls @ 0 mls/hr IV .Q0M [facility]; Protocol Last Titration: 04/18/24 16:21 Dose: 90 mcg/min, 27 mls/hr Insulin Glargine (Insulin Glargine 100 Units/1 Ml) 10 unit SUBCUT BID [facility] Last Admin: 04/18/24 17:12 Dose: Not Given Insulin Human Lispro (Insulin Lispro 100 Unit/1 Ml) 0 unit SUBCUT Q6H [facility]; Protocol Last Admin: 04/18/24 17:12 Dose: Not Given Lorazepam (Lorazepam 2 Mg/Ml Inj 1 Ml) 0.5 mg IVP Q4H PRN PRN Reason: ANXIETY Last Admin: 04/18/24 16:47 Dose: 0.5 mg Metoprolol Tartrate (Metoprolol Tartrate 25 Mg Tablet) 12.5 mg PO BID [facility] Last Admin: 04/18/24 17:23 Dose: 12.5 mg Morphine Sulfate (Morphine 4 Mg/Ml Sdv 1 Ml) 4 mg IVP Q4H PRN PRN Reason: SEVERE PAIN Last Admin: 04/18/24 15:16 Dose: 4 mg Morphine Sulfate (Morphine Er (12 Hr) 30 Mg Tablet) 30 mg PO BID [facility] Last Admin: 04/18/24 17:23 Dose: 30 mg Morphine Sulfate (Morphine Er (12 Hr) 30 Mg Tablet) 30 mg PO Q12H [facility] Last Admin: 04/18/24 13:50 Dose: Not Given Non-Formulary Medication (Brivaracetam [Briviact]) 25 mg PO DAILY [facility] Last Admin: 04/18/24 11:02 Dose: Not Given Ondansetron HCl (Ondansetron 2 Mg/Ml Sdv 2 Ml) 4 mg IVP Q6H PRN PRN Reason: NAUSEA AND VOMITING Last Admin: 04/18/24 15:33 Dose: 4 mg Potassium Chloride (Potassium Chloride Er 20 Meq Tablet) 20 meq PO DAILY [facility] Sodium Chloride (Saline Nasal [place] 44ml Btl) 1 spray NASAL PRN PRN PRN Reason: DRYNESS Tizanidine HCl (Tizanidine 4 Mg Tablet) 4 mg PO TID PRN PRN Reason: MUSCLE SPASMS Last Admin: 04/18/24 08:55 Dose: 4 mg Vitals/I&O/Wt Last Vital Signs Temp 97.6 F 04/18/24 04:53 Pulse 128 H 04/18/24 06:15 Resp 22 H 04/18/24 17:23 BP 107/53 04/18/24 06:00 Pulse Ox 96 04/18/24 17:23 O2 Del Method Room Air 04/18/24 06:15 04/18/24 04/18/24 04/18/24 06:59 14:59 22:59 Intake Total 1760.323 / 5510.018 1047.467 / 1047.467 263.05 / 1310.517 Output Total 1300 / 4050 Balance 460.323 / 6423.478 2444.467 / 1047.467 263.05 / 1310.517 Weight last 48 hrs Weight 165 lb Weight 160 lb Physical Exam 2 Narrative: GENERAL: The patient is alert and oriented times three. Continues to complain about abdominal pain HEENT: No significant pallor, icterus or lymphadenopathy.Oral cavity: There are no mucous membrane lesions. NECK: Trachea appears to be central. No masses noted. No JVD or thyromegaly appreciated. RESPIRATORY: Chest is symmetrical. No intercostals muscle retraction or any accessory muscle activation. There is no chest wall tenderness. Breath sounds are heard bilaterally. No rales or rhonchi heard. No evidence of any consolidation. BREASTS: Deferred. HEART: The heart sounds are normal. No S3 or S4. No significant murmurs. No pericardial rub ABDOMEN: Diffuse tenderness in the epigastric and periumbilical regions . No organomegaly appreciated. Bowel sounds are normally heard. : Deferred. RECTAL: Deferred. LYMPHATIC: No lymphadenopathy noted in the neck. EXTREMITIES: No edema or cyanosis. MUSCULOSKELETAL: No acute joint deformities or swelling SKIN: There are no significant rashes or ecchymosis NEUROPSYCHIATRIC: Patient is complaining about pain. Appears very uncomfortable, extremely nervous. Urinary Catheter Management: Preston: Cath Placed During This Visit: yes Reason for Continuing Indwelling Catheter: Accurate Measurement of Urinary Output in Critically Ill Patients Urinary Catheter Date of Insertion: 04/16/24 Urinary Catheter Time of Insertion: 18:58 Data 04/18/24 04:42 04/18/24 04:42 Other Labs: Laboratory Last Values WBC 20.46 10^3/uL (3.29-11.43) H 04/17/24 02:57 RBC 5.45 10^6/uL (3.85-5.65) 04/17/24 02:57 Hgb 14.80 g/dL (11.27-16.99) 04/17/24 02:57 Hct 45.4 % (36-47) 04/17/24 02:57 MCV 83.3 fl (85-98) L 04/17/24 02:57 MCH 27.2 pg (27-33) 04/17/24 02:57 MCHC 32.6 g/dL (30-55) 04/17/24 02:57 RDW 15.8 % (12.1-15.1) H 04/17/24 02:57 Plt Count 382 10^3/cmm (157-399) 04/17/24 02:57 MPV 12.3 fL (7.4-10.4) H 04/17/24 02:57 Neut % (Auto) 70.8 % 04/17/24 02:57 Lymph % (Auto) 21.3 % 04/17/24 02:57 [place] % (Auto) 7.3 % 04/17/24 02:57 Eos % (Auto) 0.0 % 04/17/24 02:57 Baso % (Auto) 0.1 % 04/17/24 02:57 Neut # (Auto) 14.47 10^3/uL (1.8-7.7) H 04/17/24 02:57 Lymph # (Auto) 4.4 10^3/uL (0.8-4.8) 04/17/24 02:57 [place] # (Auto) 1.5 10^3/uL (0.2-0.9) H 04/17/24 02:57 Eos # (Auto) 0.0 10^3/uL (0.0-0.8) 04/17/24 02:57 Baso # (Auto) 0.0 10^3/uL (0.0-0.1) 04/17/24 02:57 Nucleated RBC % (auto) 0 % 04/17/24 02:57 Nucleated RBCs # 0.0 /100WBC 04/17/24 02:57 Sodium 144 mmol/L (136-145) 04/17/24 02:57 Potassium 2.9 mmol/L (3.5-5.1) L 04/17/24 02:57 Chloride 105 mmol/L (98-107) 04/17/24 02:57 Carbon Dioxide 18 mmol/L (22-29) L 04/17/24 02:57 Anion Gap 23.9 (5-19) H 04/17/24 02:57 BUN 4 mg/dL (6-20) L 04/17/24 02:57 Creatinine 0.4 mg/dL (0.5-0.9) L 04/17/24 02:57 GFR Calculation 173.4 mL/min (90-130) H 04/17/24 02:57 Glucose 202 mg/dL (65-115) H 04/17/24 02:57 POC Glucose 107 mg/dL (70-110) 04/17/24 15:16 Calculated Osmolality 301 mOsm/kg (285-295) H 04/17/24 02:57 Lactic Acid 5.5 mmol/L (0.5-2.2) H* 04/16/24 11:30 Lactic Acid (Sepsis) 4.2 mmol/L (0.5-2.2) H* 04/16/24 14:10 Calcium 7.8 mg/dL (8.5-10.5) L 04/17/24 02:57 Phosphorus 1.6 mg/dL (2.5-4.5) L 04/17/24 02:57 Magnesium 1.6 mg/dL (1.7-2.3) L 04/17/24 02:57 Total Bilirubin 0.7 mg/dL (0.15-1.2) 04/17/24 02:57 AST 61 U/L (0-32) H 04/17/24 02:57 ALT 30 U/L (0-33) 04/17/24 02:57 Alkaline Phosphatase 381 U/L (35-105) H 04/17/24 02:57 Creatine Kinase 225 U/L (26-192) H 04/16/24 14:10 Troponin T Baseline 16 ng/L (0-10) H 04/16/24 08:56 Troponin T 120 Minute 71.40 ng/L (0-10) H 04/16/24 11:30 Delta Troponin T 55.40 ABS# (0-10) H* 04/16/24 11:30 Troponin T Hi Sens 6Hr 148.9 ng/L (0-10) H 04/16/24 14:10 Troponin T Hi Sens 6Hr Delta 132.9 ng/L (0-12) H* 04/16/24 14:10 NT-Pro-B Natriuret Pep 1894 pg/mL (0-125) H 04/16/24 08:56 Total Protein 6.5 g/dL (6.6-8.7) L 04/17/24 02:57 Albumin 3.3 g/dL (3.5-5.2) L 04/17/24 02:57 Globulin 3.2 g/dL (1.3-4.6) 04/17/24 02:57 Triglycerides 132 mg/dL (0-150) 04/16/24 08:56 Lipase 171 U/L (13-60) H 04/17/24 02:57 Urine Color Yellow (Yellow) 04/16/24 12:32 Urine Appearance Clear (CLEAR) 04/16/24 12:32 Urine pH 5 (5-7) 04/16/24 12:32 Ur Specific [place] 1.005 (1.005-1.030) 04/16/24 12:32 Urine Protein 1+ (Negative) H 04/16/24 12:32 Urine Glucose (UA) 4+ (Normal) H 04/16/24 12:32 Urine Ketones 1+ (Negative) H 04/16/24 12:32 Urine Blood Neg (Negative) 04/16/24 12:32 Urine Nitrate Negative (Negative) 04/16/24 12:32 Urine Bilirubin Neg (Negative) 04/16/24 12:32 Urine Urobilinogen 1 mg/dL (Negative) H 04/16/24 12:32 Ur Leukocyte Esterase Negative (Negative) 04/16/24 12:32 Urine RBC None /hpf (0-2) 04/16/24 12:32 Urine WBC 0-4 /hpf (0-5) H 04/16/24 12:32 Ur Squamous Epith Cells 0-4 /hpf (0-5) H 04/16/24 12:32 Amorphous Sediment Not Reportable 04/16/24 12:32 Urine Bacteria None /hpf (NONE) 04/16/24 12:32 Serum Ketones Negative (Negative) 04/16/24 08:56 Coronavirus 229E (PCR) Not detected (NOT DETECT) 04/16/24 07:44 Hepatitis A IgM Ab Non-reactive (Nonreactive) 04/16/24 14:10 Hep Bs Antigen Non-reactive (Nonreactive) 04/16/24 14:10 Hep B Core IgM Ab Non-reactive (Nonreactive) 04/16/24 14:10 Hepatitis C Antibody Non-reactive (Nonreactive) 04/16/24 14:10 SARS-CoV-2 (PCR) Not detected (NOT DETECT) 04/16/24 07:44 Micro: Microbiology 04/16/24 11:30 Blood Culture - Preliminary Blood NEGATIVE TO DATE 04/16/24 11:47 Blood Culture - Preliminary Blood NEGATIVE TO DATE Other data: Echocardiogram from 04/17/2024 Moderate concentric left trickle hypertrophy. Hypokinetic apical septum and the LV apex. LV ejection fraction around 55%. Minimally thickened aortic valve. No pericardial effusion Possibly normal chamber sizes No intracardiac masses The wall motion abnormalities appear to be new compared to the study from 03/06/2024 A&P Assessment and plan (1) Elevated troponin: In view of her multiple risk factors, possibility of underlying coronary artery disease causing a [id number] myocardial infarction is a consideration. Patient may be treated with subcu Lovenox, beta-bimal, aspirin, statin and other symptomatic measures. Possibility of a Takotsubo syndrome cannot be excluded. May continue on the conservative measures. May consider cardiac catheterization/Myocardial perfusion imaging once the pancreatitis is appropriately treated. Patient may be started on Plavix 300 mg p.o. daily followed by 75 mg p.o. daily. (2) HOCM (hypertrophic obstructive cardiomyopathy): Patient had a LVOT gradient of 36 mmHg by echocardiogram recently. Optimizing the beta-bimal therapy would be appropriate. (3) Acute pancreatitis: Symptoms slowly improving. Management as per the primary Qualifiers: Acute pancreatitis complication: unspecified Pancreatitis type: u nspecified pancreatitis type Qualified Code(s): K85.90 - Acute pancreatitis without necrosis or infection, unspecified (4) Accelerated hypertension: Patient may be given IV hydralazine on a as needed basis. The blood pressure seems to be getting under control. May be started on oral metoprolol, when she can tolerate the p.o. medications (5) DM2 (diabetes mellitus, type 2): Management as per the primary. Qualifiers: Diabetes mellitus ad terminal makeup operator insulin use: with usp use Diabetes mellitus complication status: with other specified complication Qualified Code(s): E11.69 - Type 2 diabetes mellitus with other specified complication; Z79.4 - intermediate card tender (current) use of insulin (6) Aortic valve, bicuspid: She seems to have moderate aortic valve stenosis. May not require any specific intervention at this point. Will continue on the current treatment Plan Other problems are History of seizure disorder Anxiety disorder Hypokalemia, on potassium supplement Multiple electrolyte imbalance Nausea and vomiting, improving Leukocytosis, seems to be improving Patient may benefit from a cardiac catheterization, to further evaluate the coronary status. Once the pancreatitis is stabilized, we may go ahead with the angiogram. Attestations 2 Medical Necessity Statement*: Patient requires continued hospital stay for close monitoring and further management Coding Level of Care Code 22594 Diagnoses Elevated troponin R79.89 HOCM (hypertrophic obstructive cardiomyopathy) I42.1 Acute pancreatitis, unspecified complication status, unspecified pancreatitis type K85.90 Acute pancreatitis complication: unspecified Pancreatitis type: unspecified pancreatitis type Accelerated hypertension I10 Type 2 diabetes mellitus with other specified complication, with long-term current use of insulin E11.69; Z79.4 Diabetes mellitus ad terminal makeup operator insulin use: with usp use Diabetes mellitus complication status: with other specified complication Aortic valve, bicuspid Q23.1
[2024-04-18] MEDS: metoclopramide 5 mg/mL SDV 2 mL IVP (17:50)
--- NOTE | 2024-04-18 19:35 | PC.NURSE ---
Shift summary: Pt remained in bed throughout shift. Esmolol gtt off at beginning of shift. VSS. She had some hypoglycemic episodes. IVF fluids changed to d5/0.45NS and she sips apple juice in the afternoon. Blood sugar improves. No insulin, Lantus or sliding scale, admin this shift. Pt started on nitro gtt per Dr Brito. Pt becomes very anxious and fixated on when she can have her pain meds and Ativan. She cries when staff enters room. She continuously flails around in bed, bobs her head and smacks her lips. She became so agitated after her left, her BP and Heart rate increased that NItro was up to 130mcg/min and still not helping. Her Morphine and Ativan doses increased. She was started on Xanax Po and still no relief. Dr Carballo notified of her behaviors and per pt need for pain relief . One time order for Dilaudid received towards end of shift after all PRNs had been exhausted. She would get so worked up she would start retching, so Zofran admin x 1. Reglan PRN was also started. Reglan more effective for her today than Zofran. Her urine has changed color to de anda colored, output adequate at 1225. No BMs noted. She did received Magnesium and Potassium IV today.
[2024-04-18] MEDS: LORazepam 2 mg/mL INJ 1 mL 1 MG IVP (20:44)
[2024-04-18] MEDS: esmolol drip 2,500 MG/250 ML PREMIX 10.21 MG IV (20:47)
[2024-04-18] MEDS: clopidogrel 300 mg Tablet PO (21:03)
[2024-04-18] MEDS: nitroglycerin drip 50 MG/250 ML PREMIX 39 MG IV (21:04)
[2024-04-18 21:21] LABS: Glucose Point of Care 142 mg/dL (70-110)
[2024-04-18 21:21] LABS: Glucose Point of Care 100 mg/dL (70-110)
[2024-04-18 21:21] LABS: Glucose Point of Care 108 mg/dL (70-110)
[2024-04-18 21:21] LABS: Glucose Point of Care 66 mg/dL (70-110)
[2024-04-19] VITALS (83 sets, daily range): BP systolic 70–196; BP diastolic 48–138; PULSE 79–119; RESP 3–28; TEMP 36.3–36.9; O2SAT 91–100
[2024-04-19 00:23] LABS: Glucose Point of Care 124 mg/dL (70-110)
[2024-04-19] MEDS: piperacillin-tazobactam 3.375 GM in sodium chloride 0.9% (plus) 50 ML IV ×4 (00:24→23:50)
[2024-04-19] MEDS: ondansetron 2 mg/ML SDV 2 mL 4 MG IVP (00:25)
[2024-04-19] MEDS: morphine 4 mg/mL SDV 1 mL IVP ×5 (00:25→22:38)
[2024-04-19] MEDS: levETIRAcetam 1,000 MG/100 ML PREMIX 400 MG IV ×2 (02:25→15:16)
[2024-04-19] MEDS: LORazepam 2 mg/mL INJ 1 mL 1 MG IVP (02:25)
[2024-04-19] MEDS: enoxaparin 80 mg/0.8 mL Syringe 70 MG SUBCUT ×2 (04:31→15:15)
[2024-04-19 05:41] LABS: Basophils % 0.2 %; Eosinophils % 0.1 %; Hematocrit 35.3 % (36-47); Lymphocytes # 3.2 10^3/uL (0.8-4.8); Lymphocytes % 27.9 %; Mean Corpuscular HGB Conc 32.3 g/dL (30-55); Mean Corpuscular Hemoglobin 27.9 pg (27-33); Mean Corpuscular Volume 86.5 fl (85-98); Mean Platelet Volume 11.6 fL (7.4-10.4); Monocytes # 1.2 10^3/uL (0.2-0.9); Monocytes % 10.3 %; Neutrophils # 7.06 10^3/uL (1.8-7.7); Neutrophils % 61.2 %; Nucleated Red Blood Cells % 0 %; Platelet Count 228 10^3/cmm (157-399); Red Blood Count 4.08 10^6/uL (3.85-5.65); Red Cell Distribution Width 16.2 % (12.1-15.1); White Blood Count 11.54 10^3/uL (3.29-11.43)
[2024-04-19] MEDS: tizanidine 4 mg Tablet PO ×3 (05:53→23:50)
[2024-04-19 06:01] LABS: Lipase 29 U/L (13-60)
[2024-04-19 06:04] LABS: Alanine Aminotransferase 18 U/L (0-33); Alkaline Phosphatase 206 U/L (35-105); Anion Gap 13.9 (5-19); Aspartate Amino Transferase 33 U/L (0-32); Blood Urea Nitrogen 2 mg/dL (6-20); Calcium 7.8 mg/dL (8.5-10.5); Carbon Dioxide 25 mmol/L (22-29); Chloride 109 mmol/L (98-107); Creatinine Clr Calc Pharmacy 162.1721; Globulin 2.4 g/dL (1.3-4.6); Glomerular Filtration Rate 173.4 mL/min (90-130); Glucose 143 mg/dL (65-115); Magnesium 1.7 mg/dL (1.7-2.3); Osmolality Calculated 299 mOsm/kg (285-295); Sodium 145 mmol/L (136-145); Total Bilirubin 0.6 mg/dL (0.15-1.2); Total Protein 5.4 g/dL (6.6-8.7)
[2024-04-19 06:22] LABS: Potassium 2.9 mmol/L (3.5-5.1)
[2024-04-19 06:46] LABS: Glucose Point of Care 122 mg/dL (70-110)
[2024-04-19] MEDS: dextrose 5%-sod chloride 0.45% 1,000 ML 100 ML IV ×2 (07:47→18:22)
[2024-04-19] MEDS: ALPRAZolam 0.5 mg Tablet 1 MG PO ×3 (07:49→20:19)
[2024-04-19] MEDS: potassium chloride ER 20 mEq Tablet PO (07:50)
[2024-04-19] MEDS: clopidogrel 75 mg Tablet PO (07:50)
[2024-04-19] MEDS: morphine ER (12 HR) 30 mg tablet PO ×2 (07:50→20:19)
[2024-04-19] MEDS: metoprolol tartrate 25 mg Tablet 12.5 MG PO ×2 (07:50→12:43)
[2024-04-19] MEDS: fluticasone nasal spray 16gm Btl 2 SPRAY NASAL (07:51)
[2024-04-19] MEDS: BRIVARACETAM 25 MG 25 EACH PO (07:51)
[2024-04-19] MEDS: cloNIDine 0.1 mg/24 hr Patch 1 PATCH TRANSDERMA (07:52)
[2024-04-19 09:08] LABS: Glucose Point of Care 119 mg/dL (70-110)
[2024-04-19] MEDS: metoclopramide 5 mg/mL SDV 2 mL IVP (11:06)
[2024-04-19 11:47] LABS: Glucose Point of Care 119 mg/dL (70-110)
--- NOTE | 2024-04-19 16:27 | P.PN_ITS ---
Subjective 2 Subjective: As per the nursing staff, whenever the patient is resting or sleeping, her heart rate and blood pressure comes down significantly. Apparently she was very agitated last night and had to be started on esmolol drip which was tapered off this morning. She also was on nitro drip for a while. Medications: Medication Review Details: Current Medications Alprazolam (Alprazolam 0.5 Mg Tablet) 1 mg PO Q6H PRN PRN Reason: ANXIETY Last Admin: 04/19/24 12:42 Dose: 1 mg Bisacodyl (Bisacodyl 10 Mg Supp) 10 mg AR DAILY LEANDRA Last Admin: 04/19/24 08:11 Dose: Not Given Clonidine HCl (Clonidine 0.1 Mg/24 Hr Patch) 1 patch TRANSDERMA Q7D LEANDRA Last Admin: 04/19/24 07:52 Dose: 1 patch Clopidogrel Bisulfate (Clopidogrel 75 Mg Tablet) 75 mg PO DAILY [facility]AN[facility] Last Admin: 04/19/24 07:50 Dose: 75 mg Enoxaparin Sodium (Enoxaparin 80 Mg/0.8 Ml Syringe) 70 mg SUBCUT Q12H [facility]AN[facility] Last Admin: 04/19/24 15:15 Dose: 70 mg Fluticasone Propionate (Fluticasone Nasal [place] 16gm Btl) 2 spray NASAL DAILY LEANDRA Last Admin: 04/19/24 07:51 Dose: 2 spray Glucagon (Glucagon 1 Mg/Ml Kit 1 Ml) 1 mg IM ONCE PRN; Protocol PRN Reason: Adult Acute Hypoglycemia Nursing Prot. Esmolol HCl (Brevibloc Drip) 2,500 mg in 250 mls @ 0 mls/hr IV .Q0M LEANDRA; Protocol Last Titration: 04/19/24 10:30 Dose: 0 mcg/kg/min, 0 mls/hr Piperacillin Sod/Tazobactam (Sod 3.375 gm/ Sodium Chloride) 50 mls @ 12.5 mls/hr IV Q8H LEANDRA; Protocol Last Admin: 04/19/24 15:15 Dose: 12.5 mls/hr Levetiracetam (Keppra) 1,000 mg in 100 mls @ 400 mls/hr IV Q12H [facility]AN[facility] Last Admin: 04/19/24 15:16 Dose: 400 mls/hr Dextrose (D5w) 500 mls @ 0 mls/hr IV ONCE PRN; Protocol PRN Reason: Adult Acute Hypoglycemia Prot Dextrose (D10w) 125 mls @ 750 mls/hr IV PRN PRN; Protocol PRN Reason: Adult Acute Hypoglycemia Nursing Protocol Dextrose (D10w) 250 mls @ 1,000 mls/hr IV PRN PRN; Protocol PRN Reason: Adult Acute Hypoglycemia Nursing Protocol Dexmedetomidine/Sodium Chloride (Precedex) 400 mcg in 100 mls @ 0 mls/hr IV .Q0M [facility]AN[facility]; Protocol Last Titration: 04/17/24 09:06 Dose: Infused Dextrose/Sodium Chloride (Dextrose 5%-Sod Chloride 0.45%) 1,000 mls @ 100 mls/hr IV .Q10H [facility]AN[facility] Last Admin: 04/19/24 07:47 Dose: 100 mls/hr Nitroglycerin/Dextrose (Nitroglycerin Drip) 50 mg in 250 mls @ 0 mls/hr IV .Q0M LEANDRA; Protocol Last Titration: 04/19/24 15:36 Dose: 20 mcg/min, 6 mls/hr Insulin Glargine (Insulin Glargine 100 Units/1 Ml) 10 unit SUBCUT BID LEANDRA Last Admin: 04/19/24 09:51 Dose: Not Given Insulin Human Lispro (Insulin Lispro 100 Unit/1 Ml) 0 unit SUBCUT Q6H LEANDRA; Protocol Last Admin: 04/19/24 11:30 Dose: Not Given Lorazepam (Lorazepam 2 Mg/Ml Inj 1 Ml) 1 mg IVP Q4H PRN PRN Reason: ANXIETY Last Admin: 04/19/24 02:25 Dose: 1 mg Metoclopramide HCl (Metoclopramide 5 Mg/Ml Sdv 2 Ml) 5 mg IVP Q6H PRN PRN Reason: NAUSEA AND VOMITING Last Admin: 04/19/24 11:06 Dose: 5 mg Metoprolol Tartrate (Metoprolol Tartrate 25 Mg Tablet) 25 mg PO BID@0900,2100 LEANDRA Morphine Sulfate (Morphine 4 Mg/Ml Sdv 1 Ml) 4 mg IVP Q4H PRN PRN Reason: SEVERE PAIN Last Admin: 04/19/24 15:19 Dose: 4 mg Morphine Sulfate (Morphine Er (12 Hr) 30 Mg Tablet) 30 mg PO Q12H LEANDRA Last Admin: 04/19/24 07:50 Dose: 30 mg Non-Formulary Medication (Brivaracetam [Briviact]) 25 mg PO DAILY [facility] Last Admin: 04/19/24 07:51 Dose: 25 mg Ondansetron HCl (Ondansetron 2 Mg/Ml Sdv 2 Ml) 4 mg IVP Q6H PRN PRN Reason: NAUSEA AND VOMITING Last Admin: 04/19/24 00:25 Dose: 4 mg Potassium Chloride (Potassium Chloride Er 20 Meq Tablet) 20 meq PO DAILY [facility] Last Admin: 04/19/24 07:50 Dose: 20 meq Sodium Chloride (Saline Nasal [place] 44ml Btl) 1 spray NASAL PRN PRN PRN Reason: DRYNESS Tizanidine HCl (Tizanidine 4 Mg Tablet) 4 mg PO TID PRN PRN Reason: MUSCLE SPASMS Last Admin: 04/19/24 15:16 Dose: 4 mg Vitals/I&O/Wt Last Vital Signs Temp 98.5 F 04/19/24 07:15 Pulse 85 04/19/24 10:00 Resp 21 H 04/19/24 15:19 BP 117/57 04/19/24 10:00 Pulse Ox 98 04/19/24 15:19 O2 Del Method Room Air 04/19/24 10:00 04/19/24 04/19/24 04/19/24 06:59 14:59 22:59 Intake Total 747.866 / 3726.502 1287.065 / 1287.065 0 / 1287.065 Output Total 1850 / 3125 980 / 980 Balance -1102.134 / 601.502 307.065 / 307.065 0 / 307.065 Weight last 48 hrs Weight 163 lb 14.4 oz Weight 165 lb Physical Exam 2 Narrative: GENERAL: The patient is alert and oriented times three. Continues to complain about abdominal pain HEENT: No significant pallor, icterus or lymphadenopathy.Oral cavity: There are no mucous membrane lesions. NECK: Trachea appears to be central. No masses noted. No JVD or thyromegaly appreciated. RESPIRATORY: Chest is symmetrical. No intercostals muscle retraction or any accessory muscle activation. There is no chest wall tenderness. Breath sounds are heard bilaterally. No rales or rhonchi heard. No evidence of any consolidation. BREASTS: Deferred. HEART: The heart sounds are normal. No S3 or S4. No significant murmurs. No pericardial rub ABDOMEN: Diffuse tenderness in the epigastric and periumbilical regions . No organomegaly appreciated. Bowel sounds are normally heard. : Deferred. RECTAL: Deferred. LYMPHATIC: No lymphadenopathy noted in the neck. EXTREMITIES: No edema or cyanosis. MUSCULOSKELETAL: No acute joint deformities or swelling SKIN: There are no significant rashes or ecchymosis NEUROPSYCHIATRIC: Patient is complaining about pain. Appears very uncomfortable, extremely nervous. Urinary Catheter Management: Preston: Cath Placed During This Visit: yes Reason for Continuing Indwelling Catheter: Accurate Measurement of Urinary Output in Critically Ill Patients Urinary Catheter Date of Insertion: 04/16/24 Urinary Catheter Time of Insertion: 18:58 Data 04/19/24 05:06 04/19/24 05:06 Other Labs: Laboratory Last Values WBC 11.54 10^3/uL (3.29-11.43) H 04/19/24 05:06 RBC 4.08 10^6/uL (3.85-5.65) 04/19/24 05:06 Hgb 11.40 g/dL (11.27-16.99) 04/19/24 05:06 Hct 35.3 % (36-47) L 04/19/24 05:06 MCV 86.5 fl (85-98) 04/19/24 05:06 MCH 27.9 pg (27-33) 04/19/24 05:06 MCHC 32.3 g/dL (30-55) 04/19/24 05:06 RDW 16.2 % (12.1-15.1) H 04/19/24 05:06 Plt Count 228 10^3/cmm (157-399) 04/19/24 05:06 MPV 11.6 fL (7.4-10.4) H 04/19/24 05:06 Neut % (Auto) 61.2 % 04/19/24 05:06 Lymph % (Auto) 27.9 % 04/19/24 05:06 Butts % (Auto) 10.3 % 04/19/24 05:06 Eos % (Auto) 0.1 % 04/19/24 05:06 Baso % (Auto) 0.2 % 04/19/24 05:06 Neut # (Auto) 7.06 10^3/uL (1.8-7.7) 04/19/24 05:06 Lymph # (Auto) 3.2 10^3/uL (0.8-4.8) 04/19/24 05:06 Butts # (Auto) 1.2 10^3/uL (0.2-0.9) H 04/19/24 05:06 Eos # (Auto) 0.0 10^3/uL (0.0-0.8) 04/19/24 05:06 Baso # (Auto) 0.0 10^3/uL (0.0-0.1) 04/19/24 05:06 Nucleated RBC % (auto) 0 % 04/19/24 05:06 Nucleated RBCs # 0.0 /100WBC 04/19/24 05:06 Sodium 145 mmol/L (136-145) 04/19/24 05:06 Potassium 2.9 mmol/L (3.5-5.1) L 04/19/24 05:06 Chloride 109 mmol/L (98-107) H 04/19/24 05:06 Carbon Dioxide 25 mmol/L (22-29) 04/19/24 05:06 Anion Gap 13.9 (5-19) 04/19/24 05:06 BUN 2 mg/dL (6-20) L 04/19/24 05:06 Creatinine 0.4 mg/dL (0.5-0.9) L 04/19/24 05:06 GFR Calculation 173.4 mL/min (90-130) H 04/19/24 05:06 Glucose 143 mg/dL (65-115) H 04/19/24 05:06 POC Glucose 119 mg/dL (70-110) H 04/19/24 11:27 Calculated Osmolality 299 mOsm/kg (285-295) H 04/19/24 05:06 Lactic Acid 5.5 mmol/L (0.5-2.2) H* 04/16/24 11:30 Lactic Acid (Sepsis) 4.2 mmol/L (0.5-2.2) H* 04/16/24 14:10 Calcium 7.8 mg/dL (8.5-10.5) L 04/19/24 05:06 Phosphorus 1.6 mg/dL (2.5-4.5) L 04/17/24 02:57 Magnesium 1.7 mg/dL (1.7-2.3) 04/19/24 05:06 Total Bilirubin 0.6 mg/dL (0.15-1.2) 04/19/24 05:06 AST 33 U/L (0-32) H 04/19/24 05:06 ALT 18 U/L (0-33) 04/19/24 05:06 Alkaline Phosphatase 206 U/L (35-105) H 04/19/24 05:06 Creatine Kinase 225 U/L (26-192) H 04/16/24 14:10 Troponin T Baseline 16 ng/L (0-10) H 04/16/24 08:56 Troponin T 120 Minute 71.40 ng/L (0-10) H 04/16/24 11:30 Delta Troponin T 55.40 ABS# (0-10) H* 04/16/24 11:30 Troponin T Hi Sens 6Hr 148.9 ng/L (0-10) H 04/16/24 14:10 Troponin T Hi Sens 6Hr Delta 132.9 ng/L (0-12) H* 04/16/24 14:10 NT-Pro-B Natriuret Pep 1894 pg/mL (0-125) H 04/16/24 08:56 Total Protein 5.4 g/dL (6.6-8.7) L 04/19/24 05:06 Albumin 3.0 g/dL (3.5-5.2) L 04/19/24 05:06 Globulin 2.4 g/dL (1.3-4.6) 04/19/24 05:06 Triglycerides 132 mg/dL (0-150) 04/16/24 08:56 Lipase 29 U/L (13-60) 04/19/24 05:06 Urine Color Yellow (Yellow) 04/16/24 12:32 Urine Appearance Clear (CLEAR) 04/16/24 12:32 Urine pH 5 (5-7) 04/16/24 12:32 Ur Specific [place] 1.005 (1.005-1.030) 04/16/24 12:32 Urine Protein 1+ (Negative) H 04/16/24 12:32 Urine Glucose (UA) 4+ (Normal) H 04/16/24 12:32 Urine Ketones 1+ (Negative) H 04/16/24 12:32 Urine Blood Neg (Negative) 04/16/24 12:32 Urine Nitrate Negative (Negative) 04/16/24 12:32 Urine Bilirubin Neg (Negative) 04/16/24 12:32 Urine Urobilinogen 1 mg/dL (Negative) H 04/16/24 12:32 Ur Leukocyte Esterase Negative (Negative) 04/16/24 12:32 Urine RBC None /hpf (0-2) 04/16/24 12:32 Urine WBC 0-4 /hpf (0-5) H 04/16/24 12:32 Ur Squamous Epith Cells 0-4 /hpf (0-5) H 04/16/24 12:32 Amorphous Sediment Not Reportable 04/16/24 12:32 Urine Bacteria None /hpf (NONE) 04/16/24 12:32 Serum Ketones Negative (Negative) 04/16/24 08:56 Coronavirus 229E (PCR) Not detected (NOT DETECT) 04/16/24 07:44 Hepatitis A IgM Ab Non-reactive (Nonreactive) 04/16/24 14:10 Hep Bs Antigen Non-reactive (Nonreactive) 04/16/24 14:10 Hep B Core IgM Ab Non-reactive (Nonreactive) 04/16/24 14:10 Hepatitis C Antibody Non-reactive (Nonreactive) 04/16/24 14:10 SARS-CoV-2 (PCR) Not detected (NOT DETECT) 04/16/24 07:44 A&P Assessment and plan (1) Elevated troponin: Patient may be continued on the current medications. Consider a cardiac elevation when the patient is able to cooperate with the test (2) HOCM (hypertrophic obstructive cardiomyopathy): History of a gradient of 36 mmHg, based on the previous echocardiogram. Patient seems to be stable with no significant symptoms. (3) Acute pancreatitis: Symptoms slowly improving. Management as per the primary Qualifiers: Acute pancreatitis complication: unspecified Pancreatitis type: u nspecified pancreatitis type Qualified Code(s): K85.90 - Acute pancreatitis without necrosis or infection, unspecified (4) Accelerated hypertension: Patient is normotensive or slightly hypotensive at this time. Patient's renal tumor, could be a contributing factor for this fluctuating blood pressure. (5) DM2 (diabetes mellitus, type 2): Management as per the primary. 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 May not require any specific intervention at this point. Will continue on the current treatment Plan Other problems are History of seizure disorder Anxiety disorder Hypokalemia, on potassium supplement Multiple electrolyte imbalance Nausea and vomiting, improving Leukocytosis, seems to be improving Patient may benefit from a cardiac catheterization, to further evaluate the coronary status. Once the pancreatitis is stabilized and the patient is able to cooperate, we may go ahead with the angiogram. Attestations 2 Medical Necessity Statement*: Patient requires continued hospital stay for close monitoring and further management Coding Level of Care Code 23443 Diagnoses Elevated troponin R79.89 HOCM (hypertrophic obstructive cardiomyopathy) I42.1 Acute pancreatitis, unspecified complication status, unspecified pancreatitis type K85.90 Acute pancreatitis complication: unspecified Pancreatitis type: unspecified pancreatitis type Accelerated hypertension I10 Type 2 diabetes mellitus with other specified complication, with long-term current use of insulin E11.69; Z79.4 Diabetes mellitus longterm insulin use: with terminologist use Diabetes mellitus complication status: with other specified complication Aortic valve, bicuspid Q23.1
--- NOTE | 2024-04-19 16:38 | P.PN_ITS ---
Subjective 2 Subjective: She is still bothered by significant anxiety, although anxiety is a chronic struggle for her, this appears to be worse than usual and accompanied by significant spikes in blood pressure, tachycardia after she wakes up, after anxiety ramps up. This makes her feel miserable. She has been requiring anxiety medication in addition to pain medication. Vitals/I&O/Wt Last Vital Signs Temp 98.5 F 04/19/24 07:15 Pulse 85 04/19/24 10:00 Resp 21 H 04/19/24 15:19 BP 117/57 04/19/24 10:00 Pulse Ox 98 04/19/24 15:19 O2 Del Method Room Air 04/19/24 10:00 04/19/24 04/19/24 04/19/24 06:59 14:59 22:59 Intake Total 747.866 / 3726.502 1287.065 / 1287.065 0 / 1287.065 Output Total 1850 / 3125 980 / 980 Balance -1102.134 / 601.502 307.065 / 307.065 0 / 307.065 Weight last 48 hrs Weight 74.344 kg Weight 74.843 kg Physical Exam 2 Narrative: Antalgic positioning, whimpering due to anxiety. Const: COMMON NORMALS: patient oriented x3 and alert GENERAL APPEARANCE: c ooperative NUTRITIONAL APPEARANCE: obese ORIENTATION/CONSCIOUSNESS: Yes awake HENMT: COMMON NORMALS: oropharynx normal Neck/C-Spine: COMMON NORMALS: no JVD Resp: COMMON NORMALS: normal respiratory effort and clear to auscultation bilaterally AUSCULTATION: clear to auscultation bilaterally Cardio: COMMON NORMALS: no JVD, regular rhythm, S1 normal heart sound present, S2 normal heart sound present and No murmurs present (Cardio) RHYTHM: regular rhythm HEART SOUNDS: S1 normal heart sound present and S2 normal heart sound present GI: COMMON NORMALS: Normal to inspection, nondistended, normoactive bowel sounds present and Soft to palpation PALPATION: Yes Soft to palpation O THER: Improvement in abdominal tenderness Extremity: COMMON NORMALS: no joint enlargement and no pedal edema Neuro: COMMON NORMALS: patient oriented x3 and moves all extremities S ENSORIUM/ORIENTATION: Yes alert Skin: COMMON NORMALS: no rashes or lesions noted GENERAL SKIN EXAM: no rashes or lesions noted Urinary Catheter Management: Preston: Cath Placed During This Visit: yes Reason for Continuing Indwelling Catheter: Accurate Measurement of Urinary Output in Critically Ill Patients Urinary Catheter Date of Insertion: 04/16/24 Urinary Catheter Time of Insertion: 18:58 Data 04/19/24 05:06 04/19/24 05:06 A&P Assessment and plan (1) Hypertensive urgency: Episodes of severe anxiety, accompanied by severe blood pressure elevation as well as tachycardia. Possible withdrawal from medication or substance, unclear what at current time. Possibly component of withdrawal from clonidine when she was unable to take the medication. We were able to obtain a patch for her, this is now placed, continue supportive care for suspected/possible withdrawal. Otherwise reviewed prior studies as well, urine catecholamines were not elevated back in January. Toxicology previously positive for opiates, otherwise negative. Continue to hold off scopolamine as well initially with consideration of component of anticholinergic syndrome. Pancreatitis is improving, nausea and vomiting improving, she is tolerating some oral medications, some oral intake. With some severe/crippling anxiety episodes still present continue anxiety treatment, with risk of respiratory suppression, blood pressure and heart rate fluctuation, continuing Xanax, increased frequency to every 6 hours, Ativan as needed for severe anxiety by IV, Precedex if needed. Still required esmolol drip overnight. Increase metoprolol to 25 mg twice daily. Then again still requiring esmolol this morning. Wean off as tolerating. Monitor for risk of hypotension, bradycardia. Would benefit from additional cardiac evaluation with coronary angiography as discussed with her, although this is not emergent and she definitely needs to be able to stay still for the procedure, so would have to further improve from the severely symptomatic anxiety/withdrawal as per discussion with assistant professor of philosophy. Discussed with nursing staff. Blood pressures with fluctuation. Esmolol had to be held. Needed overnight again. But again becoming tachycardic, small transiently resumed. Continue IV hydration at current time. Esmolol drip as needed for any significant blood pressure spikes, tachycardia. Did not respond to IV metoprolol pushes in ER. Started on esmolol drip. Continue small drip, monitor blood pressure. Likely component of rebound hypertension with clonidine which she has been unable to take due to nausea and vomiting. Discussed with her starting patch. (2) Acute pancreatitis: Reviewed CMP, potassium, transaminases, magnesium, lipase. Lipase normalized. With improvement in nausea and vomiting. Tolerating some oral intake. She will let us know if ready to try some GI soft diet. Hypoglycemia improved. Hypernatremia, hyper chloremia with improvement. With tolerating some oral intake will decrease IV fluid rate down to 30 cc/h. Monitor for risk of fluid overload with IV fluids. Monitor for risk of hypoglycemia with decreasing rate of D5. SIRS with improvement. Leukocytosis down to 11.5. Afebrile. Reviewed vitals, CBC. Reviewed blood culture, negative to date. Moderately severe acute pancreatitis with SIRS, fever 100.8, WBC 17.55, tachycardia 109, severe abdominal pain, pancreatitis findings on CT, lipase elevation 412, persistent nausea and vomiting despite treatment. Reviewed vitals, CBC, CMP, magnesium, lipase, troponin, CT abdomen pelvis, UA, ketones, coronavirus PCR panel, ER note, discussed with ER provider. With noted elevation of transaminases, alk phos, CT scan was discussed with radiology by ER provider, CBD appeared normal, low suspicion of choledocholithiasis/ascending cholangitis, abdominal ultrasound is requested. For now empirically antibiotic started with Zosyn due to SIRS without obvious source for sepsis/infection. Bowel rest, n.p.o., required 12 mg IV morphine in ER, will give IV Dilaudid for pain control. IV Zofran. IV fluids with LR. Received magnesium, recheck level. Check phosphorus. Repeat chemistry. Monitor hemodynamics with severe hypertension currently, at risk of shock, hypotension with severe pancreatitis. With recurrent pancreatitis, discussed with her would benefit from follow-up with gastroenterology to look for any other possible etiology, including possibility of autoimmune disease. Qualifiers: Acute pancreatitis complication: unspecified Pancreatitis type: u nspecified pancreatitis type Qualified Code(s): K85.90 - Acute pancreatitis without necrosis or infection, unspecified (3) Elevated troponin: As per discussion with cardiology once her condition further improves, she is able to lay flat to tolerate the procedure she would benefit from additional assessment by coronary angiography as discussed with her to further assess for significant coronary disease, need for possible intervention. She tells me they have discussed with cardiology regarding NSTEMI, recommendation for additional assessment with coronary angiography once she is doing a bit better from perspective of pancreatitis. She will need to be able to lay still, nausea has been improving, but she has been dealing with some significant anxiety. Add Xanax as needed. Ativan for severe anxiety. Precedex if needed. Baseline troponin normal, at 2 hours troponin up to 71.4. Complete troponin series. Monitor on telemetry. Possible NSTEMI. Allergic to aspirin. On anticoagulation with Eliquis at home, will switch to Lovenox here. Obtain limited TTE. Cardiology is consulted. Has risk factors of coronary disease, would benefit from further risk stratification depending on clinical course and findings. (4) Nausea and vomiting: Nausea with some improvement but she has been bothered by crippling anxiety. Without improvement so far, continue bowel rest. Pain control, IV antiemetic. IV fluids. Unable to tolerate her medications, will transition Keppra to IV for now. Additionally unable to tolerate clonidine with likely rebound hypertension as well, discussed with her starting patch. (5) Transaminitis: Improving Reviewed transaminases, with improvement. T. bili is normal. Alk phos down to 381. Pending ultrasound assessment for choledocholithiasis. Low likelihood based on CT as per radiologist. Obtain viral hepatitis panel. (6) Hypomagnesemia: Requested magnesium replacement. Recheck level. Received magnesium. Recheck level. (7) High anion gap metabolic acidosis: High anion gap metabolic acidosis with severe lactic acidosis, lactic acid 5.5. Additional hydration with IV LR. Reassess. Repeat chemistry. Reassess kidney function. At risk of ALEIDA. Serum ketones are negative. Monitor blood glucose. Continue insulin. Plan Diabetes: Trial of consistent carb clear liquid diet. Advance to GI soft consistent carb diet if continues to tolerate. Reduce insulin Lantus dose to 10 units twice daily. Accu-Cheks. Sliding scale insulin. Epilepsy: Unable to keep down oral medications. Switch Keppra to IV. Her is to bring in her home brivaracetam Aortic regurgitation, bicuspid aortic valve. Attestations 2 Medical Necessity Statement*: Continue admission for assessment and management of acute pancreatitis, metabolic acidosis, hyperchloremic acidosis, hypoglycemia, NSTEMI pending additional assessment with coronary angiography. Coding Level of Care Code Critical Care >/= 30 minutes Critical care time (in minutes): 45 The high probability of a clinically significant, sudden or life threatening deterioration, as referenced in this documentation, required my full and direct attention, intervention and personal management. The critical care time shown is in addition to time spent performing any reported separately billable procedures and includes the following: [x] Data and vital sign review and interpretation [x ] Patient assessment, examination and intervention [x] Medication orders and management [x] Patient/Family updates as able [x] Care Coordination and Documentation. Diagnoses Hypertensive urgency I16.0 Acute pancreatitis, unspecified complication status, unspecified pancreatitis type K85.90 Acute pancreatitis complication: unspecified Pancreatitis type: unspecified pancreatitis type Elevated troponin R79.89 Nausea and vomiting R11.2 Transaminitis R74.01 Hypomagnesemia E83.42 High anion gap metabolic acidosis E87.29
[2024-04-19] MEDS: magnesium sulfate premix 4 GM/100 ML PREMIX IV (18:22)
[2024-04-19 18:28] LABS: Glucose Point of Care 138 mg/dL (70-110)
--- NOTE | 2024-04-19 19:34 | PC.NURSE ---
Shift summary: Pt rested in bed this shift.. She did get out of bed once to BSC. She has refused all other subsequent offers to help her get out of bed to a chair and/or use BSC. She was continent of bowels this am, since she has been incontinent the other 5 episodes of BM today. Her urine remains de anda red, output has increased to 2550ml this shift. She started the day on VSS, relaxed with even respirations, resting with eyes closed She had Esmolol infusing at 70mcg/kg/min at morning shift report It was weaned off by 1030, her BPs tolerating well. Heart rate in 80's and sinus. She awaken [id number] her heart increased to 105, Her BP increased she started crying and questioning her morphine schedule. Informed pt , schedule right on track, she was resting earlier so there was no indication to admin Morphine IV this am. She calmed down. Pain meds and anxiety meds admin as needed today, She has required less today. She did get worked up around 1530, her BP was elevated, so nitro restarted. Her heart rate remained in 90's at that time. Morphine also admin. Pt then started resting with eyes closed, BP decreased as well, so nitro stopped after half hour. magnesium IVP admin today.
[2024-04-19] MEDS: metoprolol tartrate 25 mg Tablet PO (20:19)
[2024-04-19 20:27] LABS: Glucose Point of Care 121 mg/dL (70-110)
[2024-04-20] VITALS (36 sets, daily range): BP systolic 92–209; BP diastolic 48–130; PULSE 67–102; RESP 10–33; TEMP 35.9–36.9; O2SAT 90–100
[2024-04-20] MEDS: LORazepam 2 mg/mL INJ 1 mL 1 MG IVP ×2 (00:25→16:41)
[2024-04-20] MEDS: enoxaparin 80 mg/0.8 mL Syringe 70 MG SUBCUT ×2 (03:56→16:18)
[2024-04-20] MEDS: levETIRAcetam 1,000 MG/100 ML PREMIX 400 MG IV ×2 (03:56→15:47)
[2024-04-20] MEDS: morphine 4 mg/mL SDV 1 mL IVP ×4 (03:57→20:38)
[2024-04-20] MEDS: ALPRAZolam 0.5 mg Tablet 1 MG PO ×4 (03:57→23:57)
[2024-04-20 05:17] LABS: Basophils % 0.4 %; Eosinophils # 0.1 10^3/uL (0.0-0.8); Eosinophils % 1.4 %; Hematocrit 34.4 % (36-47); Lymphocytes # 4.1 10^3/uL (0.8-4.8); Mean Corpuscular HGB Conc 31.1 g/dL (30-55); Mean Corpuscular Hemoglobin 27.3 pg (27-33); Mean Corpuscular Volume 87.8 fl (85-98); Monocytes # 0.7 10^3/uL (0.2-0.9); Monocytes % 8.1 %; Neutrophils # 3.56 10^3/uL (1.8-7.7); Neutrophils % 41.5 %; Nucleated Red Blood Cells % 0 %; Platelet Count 210 10^3/cmm (157-399); Red Blood Count 3.92 10^6/uL (3.85-5.65); Red Cell Distribution Width 16.3 % (12.1-15.1); White Blood Count 8.56 10^3/uL (3.29-11.43)
[2024-04-20] MEDS: tizanidine 4 mg Tablet PO ×2 (06:18→21:15)
[2024-04-20 06:19] LABS: Alanine Aminotransferase 15 U/L (0-33); Anion Gap 12.2 (5-19); Aspartate Amino Transferase 20 U/L (0-32); Blood Urea Nitrogen 1 mg/dL (6-20); Calcium 7.4 mg/dL (8.5-10.5); Carbon Dioxide 26 mmol/L (22-29); Chloride 110 mmol/L (98-107); Creatinine Clr Calc Pharmacy 217.2222; Glomerular Filtration Rate 241.7 mL/min (90-130); Glucose 138 mg/dL (65-115); Magnesium 2.3 mg/dL (1.7-2.3); Osmolality Calculated 298 mOsm/kg (285-295); Potassium 3.2 mmol/L (3.5-5.1); Sodium 145 mmol/L (136-145); Total Bilirubin 0.4 mg/dL (0.15-1.2); Total Protein 4.9 g/dL (6.6-8.7)
[2024-04-20 06:20] LABS: Albumin Level 2.6 g/dL (3.5-5.2); Alkaline Phosphatase 182 U/L (35-105); Globulin 2.3 g/dL (1.3-4.6)
[2024-04-20 06:23] LABS: Glucose Point of Care 123 mg/dL (70-110)
[2024-04-20] MEDS: dextrose 5%-sod chloride 0.45% 1,000 ML 100 ML IV ×2 (06:41→17:37)
[2024-04-20] MEDS: morphine ER (12 HR) 30 mg tablet PO ×2 (08:23→19:48)
[2024-04-20] MEDS: potassium chloride ER 20 mEq Tablet PO (08:23)
[2024-04-20] MEDS: piperacillin-tazobactam 3.375 GM in sodium chloride 0.9% (plus) 50 ML IV ×2 (08:24→15:48)
[2024-04-20] MEDS: BRIVARACETAM 25 MG 25 EACH PO (08:24)
[2024-04-20] MEDS: clopidogrel 75 mg Tablet PO (08:24)
[2024-04-20] MEDS: metoprolol tartrate 25 mg Tablet PO ×2 (08:24→18:09)
[2024-04-20] MEDS: fluticasone nasal spray 16gm Btl 2 SPRAY NASAL (08:25)
--- NOTE | 2024-04-20 08:45 | PC.NURSE ---
Pt refuses to get out of bed to chair this am
[2024-04-20] MEDS: lidocaine 1% 5 ML in potassium chloride premix 100 ML 52.5 ML IV (09:58)
--- NOTE | 2024-04-20 10:00 | PC.NURSE ---
Pt complaining of abd/left sided pain 10/10. Offered assistance in getting out of bed and ambulating for GI pain, pt refused. Pt requesting her Morphine. Pt resting with eyes closed, No s/s of distress noted when this nurse returned with Morphine IV 5 minutes later.
--- NOTE | 2024-04-20 10:17 | PC.NURSE ---
Ryan held this am. Blood sugar 123. PT not eating breakfast. Dr Patton secured messaged. Order to give her half if she is eating.
[2024-04-20 10:55] LABS: Glucose Point of Care 175 mg/dL (70-110)
--- NOTE | 2024-04-20 11:19 | PC.SOCIAL ---
IMM Update pg 2 of IMM updated and reviewed w/ patient. Copy provided and copy dated, initialed and placed in chart.
[2024-04-20 11:51] LABS: Creatine Phosphokinase 91 U/L (26-192)
[2024-04-20] MEDS: insulin lispro 100 unit/1 mL SUBCUT ×2 (11:51→23:57)
[2024-04-20] MEDS: insulin glargine 100 units/1 mL 2 UNIT SUBCUT ×2 (12:08→19:49)
--- NOTE | 2024-04-20 12:15 | P.PN_ITS ---
Subjective 2 Subjective: Asleep Vitals/I&O/Wt Last Vital Signs Temp 96.7 F L 04/20/24 08:00 Pulse 85 04/20/24 12:00 Resp 10 L 04/20/24 12:00 BP 131/82 04/20/24 12:00 Pulse Ox 98 04/20/24 12:00 O2 Del Method Room Air 04/20/24 12:00 04/19/24 04/20/24 04/20/24 22:59 06:59 14:59 Intake Total 1504.4 / 2891.465 1368.333 / 4259.798 105 / 105 Output Total 3100 / 4080 700 / 4780 Balance -1595.6 / -1188.535 668.333 / -520.202 105 / 105 Weight last 48 hrs Weight 166 lb 7.184 oz Weight 163 lb 14.4 oz Physical Exam 2 Narrative: No distress HENMT: COMMON NORMALS: normocephalic, atraumatic, hearing grossly normal bilaterally, external ears normal, EAC's normal, TM's normal bilaterally, Normal external nose present, Normal nasal mucous membranes and turbinates present, moist oral mucous membranes, oropharynx normal, dentition normal and gingiva normal HEAD & SCALP: normocephalic and atraumatic NOSE: Normal external nose present and Normal nasal mucous membranes and turbinates present E XTERNAL EAR: Yes external ears normal EXTERNAL AUDITORY CANAL: EAC's normal TYMPANIC MEMBRANE: TM's normal bilaterally Neck/C-Spine: COMMON NORMALS: no JVD Chest: COMMONS NORMALS: normal inspection of the chest, normal palpation of entire chest wall, normal inspection of the breasts and normal palpation of the breasts Cardio: COMMON NORMALS: no JVD, regular rate, regular rhythm, S1 normal heart sound present, S2 normal heart sound present, No gallops present (Cardio), No clicks present (Cardio), No murmurs present (Cardio), No rub (Cardio) and Peripheral pulses 2+ throughout RATE: regular rate RHYTHM: regular rhythm HEART SOUNDS: S1 normal heart sound present and S2 normal heart sound present PERIPHERAL PULSES: Peripheral pulses 2+ throughout GI: COMMON NORMALS: Normal to inspection, nondistended, normoactive bowel sounds present, Soft to palpation, non-tender, No hepatosplenomegaly present, no masses and no bruits PALPATION: Yes Soft to palpation and Yes No hepatosplenomegaly present Extremity: COMMON NORMALS: normal to inspection, full ROM, capillary refill normal, no joint enlargement, no clubbing, cyanosis or edema, no calf tenderness and no pedal edema Urinary Catheter Management: Preston: Cath Placed During This Visit: yes Reason for Continuing Indwelling Catheter: Accurate Measurement of Urinary Output in Critically Ill Patients Urinary Catheter Date of Insertion: 04/16/24 Urinary Catheter Time of Insertion: 18:58 Data 04/20/24 04:25 04/20/24 04:25 A&P Assessment and plan (1) Aortic regurgitation: (2) HOCM (hypertrophic obstructive cardiomyopathy): (3) Hypertension: (4) Atrial fibrillation: (5) Tachycardia: (6) Aortic valve, bicuspid: (7) Elevated troponin: Plan No change today. Follow Attestations 2 Medical Necessity Statement*: treatment of multiple medical problems and Moderate Time for a total of 35 minutes, includes reviewing past or interval history, examining/interviewing patient, counseling patient/family/other support, updating patient/family/other support, discussing plan of care with staff, communicating with other healthcare providers and documenting encounter Diagnoses Aortic regurgitation I35.1 HOCM (hypertrophic obstructive cardiomyopathy) I42.1 Hypertension I10 Atrial fibrillation I48.91 Tachycardia R00.0 Aortic valve, bicuspid Q23.1 Elevated troponin R79.89
[2024-04-20 12:32] LABS: Add Urine Microscopic? YES; Bilirubin Urine Neg (Negative); Blood Urine 3+ (Negative); Glucose Urine UA 2+ (Normal); Ketones Urine Negative (Negative); Leukocyte Esterase Urine Negative (Negative); Nitrate Urine Negative (Negative); Protein Urine Neg (Negative); Urine Appearance Cloudy (CLEAR); Urine Color Red (Yellow); Urobilinogen Urine Norm (Negative); pH Urine 8 (5-7)
[2024-04-20 12:33] LABS: Add Urine Culture? Yes; Bacteria Urine TRACE /hpf; RBC Urine 80-100 /hpf (0-2); Squamous Epithelial Cell Urine RARE /hpf (0-5)
--- NOTE | 2024-04-20 12:46 | PC.NURSE ---
Called CSU to kaci reed for the second time. Receiving nurse discharging patients, she will call back.
--- NOTE | 2024-04-20 13:34 | PC.NURSE ---
Report called to CSu and given to AMPARO Horner. NO further questions.
--- NOTE | 2024-04-20 14:05 | PC.NURSE ---
Pt transferred to U room 106 via W/C. All belongings with pt. Pt transferred to recliner in room. Further update given to Siri.
--- NOTE | 2024-04-20 14:11 | PC.NURSE ---
Patient transferred from ICU to CSU via a wheelchair with at bedside.
[2024-04-20 17:10] LABS: Glucose Point of Care 119 mg/dL (70-110)
--- NOTE | 2024-04-20 17:58 | PC.NURSE ---
Provider is updated on patients blood pressures since 0. He ordered to give metoprolol early along with her xanax.
--- NOTE | 2024-04-20 18:31 | PC.NURSE ---
Provider wants her lantus from 10 units to 2 units. Order placed.
--- NOTE | 2024-04-20 19:12 | P.PN_ITS ---
Subjective 2 Subjective: Today she is doing overall slightly better. Does not have great appetite, has not felt like eating much. Still bothered by anxiety. No nausea or vomiting. Tolerating medications. [place] discoloration to urine. Yesterday had some abrasion/small rash on lateral right knee but this appears to be resolved now. Vitals/I&O/Wt Last Vital Signs Temp 98.4 F 04/20/24 17:11 Pulse 102 H 04/20/24 17:11 Resp 22 H 04/20/24 17:11 BP 183/130 04/20/24 17:44 Pulse Ox 95 04/20/24 17:11 O2 Del Method Room Air 04/20/24 12:00 04/20/24 04/20/24 04/20/24 06:59 14:59 22:59 Intake Total 1368.333 / 4259.798 305 / 305 1100 / 1405 Output Total 700 / 4780 1300 / 1300 350 / 1650 Balance 668.333 / -520.202 -995 / -995 750 / -245 Weight last 48 hrs Weight 75.5 kg Weight 74.344 kg Physical Exam 2 Narrative: Accompanied by her . Const: COMMON NORMALS: patient oriented x3 and alert GENERAL APPEARANCE: c ooperative NUTRITIONAL APPEARANCE: obese ORIENTATION/CONSCIOUSNESS: Yes awake HENMT: COMMON NORMALS: oropharynx normal Neck/C-Spine: COMMON NORMALS: no JVD Resp: COMMON NORMALS: normal respiratory effort and clear to auscultation bilaterally AUSCULTATION: clear to auscultation bilaterally Cardio: COMMON NORMALS: no JVD, regular rhythm, S1 normal heart sound present, S2 normal heart sound present and No murmurs present (Cardio) RHYTHM: regular rhythm HEART SOUNDS: S1 normal heart sound present and S2 normal heart sound present GI: COMMON NORMALS: Normal to inspection, nondistended, normoactive bowel sounds present and Soft to palpation PALPATION: Yes Soft to palpation O THER: Improvement in abdominal tenderness Extremity: COMMON NORMALS: no joint enlargement and no pedal edema Neuro: COMMON NORMALS: patient oriented x3 and moves all extremities S ENSORIUM/ORIENTATION: Yes alert Skin: COMMON NORMALS: no rashes or lesions noted GENERAL SKIN EXAM: no rashes or lesions noted Urinary Catheter Management: Preston: Cath Placed During This Visit: yes Reason for Continuing Indwelling Catheter: Accurate Measurement of Urinary Output in Critically Ill Patients Urinary Catheter Date of Insertion: 04/16/24 Urinary Catheter Time of Insertion: 18:58 Data 04/20/24 04:25 04/20/24 04:25 A&P Assessment and plan (1) Hypertensive urgency: This morning doing much better. Blood pressure in good range on review and heart rates much better addressed 70s-80s. However, in the afternoon after move out of ICU again hypertensive reported as high as 183/130, with anxiety, given IV Ativan, repeated dose of Xanax, with some pain, given pain medication, and advanced dose of metoprolol, if not improving is to restart on esmolol. Monitor blood pressure for risk of hypotension, monitor mental status for risk of mental status changes with pain and anxiety control, so far has remained awake and alert. As per discussion with her and her , reviewed past urine catecholamine study which was negative, however, reports an earlier study which at 1 point was somewhat positive, it seems that tests were inconclusive in the past. Given recurrent spikes of hypertension, tachycardia, anxiety, requesting reassessment of plasma catecholamines as well as 24-hour urine collection during active episode. Episodes of severe anxiety, accompanied by severe blood pressure elevation as well as tachycardia. Possible withdrawal from medication or substance, unclear what at current time. Possibly component of withdrawal from clonidine when she was unable to take the medication. We were able to obtain a patch for her, this is now placed, continue supportive care for suspected/possible withdrawal. Otherwise reviewed prior studies as well, urine catecholamines were not elevated back in January. Toxicology previously positive for opiates, otherwise negative. Continue to hold off scopolamine as well initially with consideration of component of anticholinergic syndrome. Pancreatitis is improving, nausea and vomiting improving, she is tolerating some oral medications, some oral intake. With some severe/crippling anxiety episodes still present continue anxiety treatment, with risk of respiratory suppression, blood pressure and heart rate fluctuation, continuing Xanax, increased frequency to every 6 hours, Ativan as needed for severe anxiety by IV, Precedex if needed. Still required esmolol drip overnight. Increase metoprolol to 25 mg twice daily. Then again still requiring esmolol this morning. Wean off as tolerating. Monitor for risk of hypotension, bradycardia. Would benefit from additional cardiac evaluation with coronary angiography as discussed with her, although this is not emergent and she definitely needs to be able to stay still for the procedure, so would have to further improve from the severely symptomatic anxiety/withdrawal as per discussion with client engagement specialist. Discussed with nursing staff. Blood pressures with fluctuation. Esmolol had to be held. Needed overnight again. But again becoming tachycardic, small transiently resumed. Continue IV hydration at current time. Esmolol drip as needed for any significant blood pressure spikes, tachycardia. Did not respond to IV metoprolol pushes in ER. Started on esmolol drip. Continue small drip, monitor blood pressure. Likely component of rebound hypertension with clonidine which she has been unable to take due to nausea and vomiting. Discussed with her starting patch. (2) Acute pancreatitis: Resolving, lipase has normalized, although still some nausea poor appetite. Clear liquids as tolerating. She has declined Ensure clear. Replace hypokalemia. Encourage oral intake as tolerating. For now continue some gentle IV hydration until oral intake is better. Reviewed CMP, potassium, transaminases, magnesium, lipase. Lipase normalized. With improvement in nausea and vomiting. Tolerating some oral intake. She will let us know if ready to try some GI soft diet. Hypoglycemia improved. Hypernatremia, hyper chloremia with improvement. With tolerating some oral intake will decrease IV fluid rate down to 30 cc/h. Monitor for risk of fluid overload with IV fluids. Monitor for risk of hypoglycemia with decreasing rate of D5. SIRS with improvement. Leukocytosis down to 11.5. Afebrile. Reviewed vitals, CBC. Reviewed blood culture, negative to date. Moderately severe acute pancreatitis with SIRS, fever 100.8, WBC 17.55, tachycardia 109, severe abdominal pain, pancreatitis findings on CT, lipase elevation 412, persistent nausea and vomiting despite treatment. Reviewed vitals, CBC, CMP, magnesium, lipase, troponin, CT abdomen pelvis, UA, ketones, coronavirus PCR panel, ER note, discussed with ER provider. With noted elevation of transaminases, alk phos, CT scan was discussed with radiology by ER provider, CBD appeared normal, low suspicion of choledocholithiasis/ascending cholangitis, abdominal ultrasound is requested. For now empirically antibiotic started with Zosyn due to SIRS without obvious source for sepsis/infection. Bowel rest, n.p.o., required 12 mg IV morphine in ER, will give IV Dilaudid for pain control. IV Zofran. IV fluids with LR. Received magnesium, recheck level. Check phosphorus. Repeat chemistry. Monitor hemodynamics with severe hypertension currently, at risk of shock, hypotension with severe pancreatitis. With recurrent pancreatitis, discussed with her would benefit from follow-up with gastroenterology to look for any other possible etiology, including possibility of autoimmune disease. Qualifiers: Acute pancreatitis complication: unspecified Pancreatitis type: u nspecified pancreatitis type Qualified Code(s): K85.90 - Acute pancreatitis without necrosis or infection, unspecified (3) Elevated troponin: Discussed with client engagement specialist, reviewed cardiology note, pending further assessment once condition otherwise improves, and she is able to tolerate coronary angiography. As per discussion with cardiology once her condition further improves, she is able to lay flat to tolerate the procedure she would benefit from additional assessment by coronary angiography as discussed with her to further assess for significant coronary disease, need for possible intervention. She tells me they have discussed with cardiology regarding NSTEMI, recommendation for additional assessment with coronary angiography once she is doing a bit better from perspective of pancreatitis. She will need to be able to lay still, nausea has been improving, but she has been dealing with some significant anxiety. Add Xanax as needed. Ativan for severe anxiety. Precedex if needed. Baseline troponin normal, at 2 hours troponin up to 71.4. Complete troponin series. Monitor on telemetry. Possible NSTEMI. Allergic to aspirin. On anticoagulation with Eliquis at home, will switch to Lovenox here. Obtain limited TTE. Cardiology is consulted. Has risk factors of coronary disease, would benefit from further risk stratification depending on clinical course and findings. (4) Nausea and vomiting: Nausea with some improvement but she has been bothered by crippling anxiety. Without improvement so far, continue bowel rest. Pain control, IV antiemetic. IV fluids. Unable to tolerate her medications, will transition Keppra to IV for now. Additionally unable to tolerate clonidine with likely rebound hypertension as well, discussed with her starting patch. (5) Transaminitis: Now resolved. Reviewed transaminases, with improvement. T. bili is normal. Alk phos down to 381. Pending ultrasound assessment for choledocholithiasis. Low likelihood based on CT as per radiologist. Obtain viral hepatitis panel. (6) Hypomagnesemia: Requested magnesium replacement. Recheck level. Received magnesium. Recheck level. (7) High anion gap metabolic acidosis: High anion gap metabolic acidosis with severe lactic acidosis, lactic acid 5.5. Additional hydration with IV LR. Reassess. Repeat chemistry. Reassess kidney function. At risk of ALEIDA. Serum ketones are negative. Monitor blood glucose. Continue insulin. Plan Hematuria: Noted pink discoloration to urine. No obvious medications that should contribute. Collected UA, 80-100 RBC, 10-15 WBC. Possible cystitis. Switch antibiotic from Zosyn to ceftriaxone. Urine culture pending. Follow-up. CT abdomen pelvis reviewed, no obvious stones, no hydronephrosis. Other obvious pathology to explain hematuria on contrast-enhanced study. She is producing urine. Creatinine is 0.3. Negative protein in UA. Currently on anticoagulation with Lovenox, at home was on Eliquis. Reassess hematuria. Urine cultures. Blood counts. Diabetes: Trial of consistent carb clear liquid diet. Advance to GI soft consistent carb diet if continues to tolerate. Reduce insulin Lantus dose to 10 units twice daily. Accu-Cheks. Sliding scale insulin. Epilepsy: Unable to keep down oral medications. Switch Keppra to IV. Her is to bring in her home brivaracetam Aortic regurgitation, bicuspid aortic valve. Attestations 2 Medical Necessity Statement*: Continue admission for assessment and management of poorly controlled hypertension with hypertensive tachycardic episodes with anxiety, possible pheochromocytoma, with severe hypertensive episodes, acute pancreatitis, metabolic acidosis, hyperchloremic acidosis, hypoglycemia, NSTEMI pending additional assessment with coronary angiography. Diagnoses Hypertensive urgency I16.0 Acute pancreatitis, unspecified complication status, unspecified pancreatitis type K85.90 Acute pancreatitis complication: unspecified Pancreatitis type: unspecified pancreatitis type Elevated troponin R79.89 Nausea and vomiting R11.2 Transaminitis R74.01 Hypomagnesemia E83.42 High anion gap metabolic acidosis E87.29
[2024-04-20] MEDS: cefTRIAXone 1,000 mg SDV 1000 MG IVP (20:37)
[2024-04-20 20:57] LABS: Glucose Point of Care 133 mg/dL (70-110)
[2024-04-20 23:56] LABS: Glucose Point of Care 147 mg/dL (70-110)
[2024-04-21] VITALS (16 sets, daily range): BP systolic 105–206; BP diastolic 59–111; PULSE 81–126; RESP 12–38; TEMP 36.5–36.9; O2SAT 92–100; BMI 33.0
[2024-04-21] MEDS: morphine 4 mg/mL SDV 1 mL IVP ×5 (03:08→22:25)
[2024-04-21 04:04] LABS: Basophils # 0.1 10^3/uL (0.0-0.1); Basophils % 0.6 %; Eosinophils # 0.3 10^3/uL (0.0-0.8); Eosinophils % 3.2 %; Hematocrit 34.9 % (36-47); Lymphocytes % 54.9 %; Mean Corpuscular HGB Conc 31.5 g/dL (30-55); Mean Corpuscular Hemoglobin 27.8 pg (27-33); Mean Corpuscular Volume 88.4 fl (85-98); Mean Platelet Volume 11.5 fL (7.4-10.4); Monocytes # 0.8 10^3/uL (0.2-0.9); Neutrophils # 2.89 10^3/uL (1.8-7.7); Nucleated Red Blood Cells % 0 %; Platelet Count 226 10^3/cmm (157-399); Red Blood Count 3.95 10^6/uL (3.85-5.65); Red Cell Distribution Width 16.5 % (12.1-15.1); White Blood Count 9.02 10^3/uL (3.29-11.43)
[2024-04-21] MEDS: LORazepam 2 mg/mL INJ 1 mL 1 MG IVP ×2 (04:19→10:13)
[2024-04-21] MEDS: enoxaparin 80 mg/0.8 mL Syringe 70 MG SUBCUT ×2 (04:19→16:31)
[2024-04-21 04:24] LABS: Alanine Aminotransferase 14 U/L (0-33); Albumin Level 2.6 g/dL (3.5-5.2); Alkaline Phosphatase 175 U/L (35-105); Anion Gap 10.3 (5-19); Aspartate Amino Transferase 20 U/L (0-32); Calcium 7.9 mg/dL (8.5-10.5); Carbon Dioxide 28 mmol/L (22-29); Chloride 113 mmol/L (98-107); Creatinine Clr Calc Pharmacy 217.2222; Globulin 2.4 g/dL (1.3-4.6); Glomerular Filtration Rate 241.7 mL/min (90-130); Glucose 81 mg/dL (65-115); Potassium 3.3 mmol/L (3.5-5.1); Sodium 148 mmol/L (136-145); Total Bilirubin 0.3 mg/dL (0.15-1.2)
[2024-04-21 04:25] LABS: Blood Urea Nitrogen 1 mg/dL (6-20); Osmolality Calculated 301 mOsm/kg (285-295)
[2024-04-21 05:55] LABS: Glucose Point of Care 90 mg/dL (70-110)
[2024-04-21] MEDS: dextrose 5%-sod chloride 0.45% 1,000 ML 30 ML IV (06:22)
--- NOTE | 2024-04-21 07:54 | PM.PN ---
Subjective Subjective: Patient was admitted on the with abdominal pain and tachycardia. She states that her pancreas hurts constantly. Her troponins were mildly elevated. She has a bicuspid aortic valve with mild to moderate aortic stenosis and mild to moderate aortic insufficiency. She has left ventricular hypertrophy and perhaps a variant of hypertrophic cardiomyopathy. Her ejection fraction is 55%. She also has an adrenal tumor, hypertension, diabetes, seizure disorder and some psychiatric issues possibly bipolar affect of disorder. She had been in the ICU and has now been transferred to the floor. She is off all drips. She does not have chest pain but abdominal pain. Vitals/I&O/Wt Last Vital Signs Temp 98.1 F 04/21/24 04:51 Pulse 98 04/21/24 06:00 Resp 17 04/21/24 07:22 BP 167/97 04/21/24 04:51 Pulse Ox 92 04/21/24 04:51 O2 Del Method Room Air 04/21/24 00:10 04/20/24 04/21/24 04/21/24 22:59 06:59 14:59 Intake Total 1390 / 1695 1300 / 2995 Output Total 1650 / 2950 1400 / 4350 Balance -260 / -1255 -100 / -1355 Weight last 48 hrs Weight 169 lb 3 oz Weight 166 lb 7.184 oz Physical Exam Narrative: GENERAL: In general she is complaining of abdominal pain which is typical. HEENT: Exam within normal limits. NECK: Supple without jugular vein distention. The carotid upstroke is normal without bruits. BACK: Exam normal. LUNGS: Clear. HEART: Regular rate and rhythm. ABDOMEN: Benign without organomegaly or tenderness. EXTREMITIES: No edema. NEUROLOGIC: Exam normal. SKIN: Unremarkable. Urinary Catheter Management: Preston: Cath Placed During This Visit: yes Reason for Continuing Indwelling Catheter: Accurate Measurement of Urinary Output in Critically Ill Patients Urinary Catheter Date of Insertion: 04/16/24 Urinary Catheter Time of Insertion: 18:58 Data 04/21/24 03:04 04/21/24 03:04 A&P Assessment and plan (1) Aortic regurgitation: (2) HOCM (hypertrophic obstructive cardiomyopathy): (3) Hypertension: (4) Tachycardia: (5) Elevated troponin: (6) Aortic valve, bicuspid: (7) DM2 (diabetes mellitus, type 2): Qualifiers: Diabetes mellitus long term acute care registered nurse insulin use: with retirement use Diabetes mellitus complication status: with other specified complication Qualified Code(s): E11.69 - Type 2 diabetes mellitus with other specified complication; Z79.4 - senior care (current) use of insulin Plan She seems to be slowly improving. I do not believe she needs angiography at this time. We will continue to follow. Attestations Medical Necessity Statement*: Hospitalization for management of multiple chronic medical problems and Moderate Time for a total of 30 minutes, includes reviewing past or interval history, examining/interviewing patient, counseling patient/family/other support, updating patient/family/other support, discussing plan of care with staff, communicating with other healthcare providers and documenting encounter Diagnoses Aortic regurgitation I35.1 HOCM (hypertrophic obstructive cardiomyopathy) I42.1 Hypertension I10 Tachycardia R00.0 Elevated troponin R79.89 Aortic valve, bicuspid Q23.1 Type 2 diabetes mellitus with other specified complication, with long-term current use of insulin E11.69; Z79.4 Diabetes mellitus retirement insulin use: with retirement use Diabetes mellitus complication status: with other specified complication
[2024-04-21] MEDS: ALPRAZolam 0.5 mg Tablet 1 MG PO (08:24)
[2024-04-21] MEDS: levETIRAcetam 500 mg Tablet 1250 MG PO ×2 (08:25→17:41)
[2024-04-21] MEDS: clopidogrel 75 mg Tablet PO (08:25)
[2024-04-21] MEDS: morphine ER (12 HR) 30 mg tablet PO ×2 (08:25→20:55)
[2024-04-21] MEDS: metoprolol tartrate 25 mg Tablet PO ×2 (08:25→21:21)
[2024-04-21] MEDS: potassium chloride ER 20 mEq Tablet PO (08:25)
[2024-04-21] MEDS: fluticasone nasal spray 16gm Btl 2 SPRAY NASAL (08:26)
[2024-04-21] MEDS: BRIVARACETAM 25 MG 25 EACH PO (08:26)
[2024-04-21] MEDS: insulin glargine 100 units/1 mL 2 UNIT SUBCUT ×2 (08:26→17:41)
[2024-04-21] MEDS: metoclopramide 5 mg/mL SDV 2 mL IVP (10:55)
[2024-04-21 11:52] LABS: Glucose Point of Care 151 mg/dL (70-110)
[2024-04-21] MEDS: insulin lispro 100 unit/1 mL SUBCUT (12:06)
[2024-04-21] MEDS: labetalol 5 mg/mL SDV 20mL 10 MG IVP ×2 (12:58→16:33)
--- NOTE | 2024-04-21 16:28 | USR_ITS ---
PROCEDURE INFORMATION: Exam: US Duplex Artery or Vein of the Abdominal and/or Reproductive Organs, Limited Liver Exam date and time: 04/21/2024 5:48 PM Age: 44 years old Clinical indication: Abdominal pain; Generalized; Additional info: Ruq pain TECHNIQUE: Imaging protocol: Real-time duplex ultrasound scan of the arterial or venous flow with color Doppler flow and spectral waveform analysis with image documentation. Limited Duplex exam focused on the liver and portal venous system. Duplex exam was performed to evaluate for vascular conditions. COMPARISON: US abdomen limited [id number] 07/22/2020 6:40 AM FINDINGS: Portal venous: Patent. Normal waveforms. Normal hepatopetal (towards the liver) flow. Hepatic artery: Not assessed PROCEDURE INFORMATION: Exam: US Abdomen, Limited; Right Upper Quadrant Exam date and time: 04/21/2024 5:48 PM Age: 44 years old Clinical indication: Abdominal pain; Generalized; Additional info: Ruq pain TECHNIQUE: Imaging protocol: Real time ultrasound of the abdomen with image documentation. Limited exam focused on the right upper quadrant. COMPARISON: US abdomen limited [id number] 07/22/2020 6:40 AM FINDINGS: Limitations: Underpenetration secondary to body habitus. Liver: There is diffuse increased echogenicity of the hepatic parenchyma consistent with fatty infiltration. 3.7 cm hypoechoic region in the right lobe of the liver most consistent with focal fatty sparing. No definitive masses are seen on ultrasound. Gallbladder: Patient is status post cholecystectomy. Biliary ducts: There is no evidence of intra or extrahepatic ductal dilatation. The common bile duct measures 3 mm. Pancreas: The pancreas is obscured by bowel gas. Right kidney: Right kidney measures small, likely related to technical factors. The right kidney is normal in size on CT from 04/16/2024. There is no evidence of renal calcification or hydronephrosis. The right kidney measures 6.6 cm in length. Portal venous: The portal vein is patent. US/US gall bladder [id number] IMPRESSION: Unremarkable duplex of the portal vein. IMPRESSION: 1. Fatty liver. Hypoechoic lesion in the right lobe of the liver most consistent with focal sparing. 2. Limited study with nonvisualization of the pancreas and under measured right kidney. 2. Status post cholecystectomy. 3. Otherwise unremarkable right upper quadrant ultrasound.
--- NOTE | 2024-04-21 16:28 | P.PN_ITS ---
Subjective 2 Subjective: Today she is having some right upper quadrant pain. Having some nausea. In the afternoon to get her episode of hypertension. Vitals/I&O/Wt Last Vital Signs Temp 98.4 F 04/21/24 12:42 Pulse 102 H 04/21/24 12:42 Resp 14 04/21/24 12:42 BP 206/98 04/21/24 12:42 Pulse Ox 96 04/21/24 09:19 O2 Del Method Room Air 04/21/24 00:10 04/21/24 04/21/24 04/21/24 06:59 14:59 22:59 Intake Total 1300 / 2995 600 / 600 Output Total 1400 / 4350 1400 / 1400 Balance -100 / -1355 -800 / -800 Weight last 48 hrs Weight 76.742 kg Weight 75.5 kg Physical Exam 2 Narrative: Accompanied by her . Const: COMMON NORMALS: patient oriented x3 and alert GENERAL APPEARANCE: c ooperative NUTRITIONAL APPEARANCE: obese ORIENTATION/CONSCIOUSNESS: Yes awake HENMT: COMMON NORMALS: oropharynx normal Neck/C-Spine: COMMON NORMALS: no JVD Resp: COMMON NORMALS: normal respiratory effort and clear to auscultation bilaterally AUSCULTATION: clear to auscultation bilaterally Cardio: COMMON NORMALS: no JVD, regular rhythm, S1 normal heart sound present, S2 normal heart sound present and No murmurs present (Cardio) RHYTHM: regular rhythm HEART SOUNDS: S1 normal heart sound present and S2 normal heart sound present GI: COMMON NORMALS: Normal to inspection, nondistended, normoactive bowel sounds present and Soft to palpation PALPATION: Yes Soft to palpation O THER: Right upper quadrant tenderness. Extremity: COMMON NORMALS: no joint enlargement and no pedal edema Neuro: COMMON NORMALS: patient oriented x3 and moves all extremities S ENSORIUM/ORIENTATION: Yes alert Skin: COMMON NORMALS: no rashes or lesions noted GENERAL SKIN EXAM: no rashes or lesions noted Urinary Catheter Management: Preston: Cath Placed During This Visit: yes Reason for Continuing Indwelling Catheter: Accurate Measurement of Urinary Output in Critically Ill Patients Urinary Catheter Date of Insertion: 04/16/24 Urinary Catheter Time of Insertion: 18:58 Data 04/21/24 03:04 04/21/24 03:04 Micro: Microbiology 04/16/24 11:30 Blood Culture - Final Blood NO GROWTH AFTER 5 DAYS 04/16/24 11:47 Blood Culture - Final Blood NO GROWTH AFTER 5 DAYS 04/20/24 11:52 Urine Culture - Preliminary Urine,Clean Catch A&P Assessment and plan (1) Hypertensive urgency: Overall blood pressure better but still with spikes of hypertension, this afternoon spiked up to 206/98 despite receiving pain medication, anxiety medication. Collection requested for plasma catecholamines as well as 24-hour urine collection. Reviewed plasma catecholamines, pending. Added labetalol IV as needed per parameters. Monitor for risk of hypotension. Discussed with nursing staff if not responding restart Esmolol drip. This morning doing much better. Blood pressure in good range on review and heart rates much better addressed 70s-80s. However, in the afternoon after move out of ICU again hypertensive reported as high as 183/130, with anxiety, given IV Ativan, repeated dose of Xanax, with some pain, given pain medication, and advanced dose of metoprolol, if not improving is to restart on esmolol. Monitor blood pressure for risk of hypotension, monitor mental status for risk of mental status changes with pain and anxiety control, so far has remained awake and alert. As per discussion with her and her , reviewed past urine catecholamine study which was negative, however, reports an earlier study which at 1 point was somewhat positive, it seems that tests were inconclusive in the past. Given recurrent spikes of hypertension, tachycardia, anxiety, requesting reassessment of plasma catecholamines as well as 24-hour urine collection during active episode. Episodes of severe anxiety, accompanied by severe blood pressure elevation as well as tachycardia. Possible withdrawal from medication or substance, unclear what at current time. Possibly component of withdrawal from clonidine when she was unable to take the medication. We were able to obtain a patch for her, this is now placed, continue supportive care for suspected/possible withdrawal. Otherwise reviewed prior studies as well, urine catecholamines were not elevated back in January. Toxicology previously positive for opiates, otherwise negative. Continue to hold off scopolamine as well initially with consideration of component of anticholinergic syndrome. Pancreatitis is improving, nausea and vomiting improving, she is tolerating some oral medications, some oral intake. With some severe/crippling anxiety episodes still present continue anxiety treatment, with risk of respiratory suppression, blood pressure and heart rate fluctuation, continuing Xanax, increased frequency to every 6 hours, Ativan as needed for severe anxiety by IV, Precedex if needed. Still required esmolol drip overnight. Increase metoprolol to 25 mg twice daily. Then again still requiring esmolol this morning. Wean off as tolerating. Monitor for risk of hypotension, bradycardia. Would benefit from additional cardiac evaluation with coronary angiography as discussed with her, although this is not emergent and she definitely needs to be able to stay still for the procedure, so would have to further improve from the severely symptomatic anxiety/withdrawal as per discussion with dining room busser. Discussed with nursing staff. Blood pressures with fluctuation. Esmolol had to be held. Needed overnight again. But again becoming tachycardic, small transiently resumed. Continue IV hydration at current time. Esmolol drip as needed for any significant blood pressure spikes, tachycardia. Did not respond to IV metoprolol pushes in ER. Started on esmolol drip. Continue small drip, monitor blood pressure. Likely component of rebound hypertension with clonidine which she has been unable to take due to nausea and vomiting. Discussed with her starting patch. (2) Acute pancreatitis: Today with right upper quadrant pain. Requesting gallbladder ultrasound. Reviewed liver parameters with her . T. bili has been normal. Alk phos is showing some elevation. Reviewed T. bili, AST, ALT, alk phos. Follow-up lipase. Resolving, lipase has normalized, although still some nausea poor appetite. Clear liquids as tolerating. She has declined Ensure clear. Replace hypokalemia. Encourage oral intake as tolerating. For now continue some gentle IV hydration until oral intake is better. Reviewed CMP, potassium, transaminases, magnesium, lipase. Lipase normalized. With improvement in nausea and vomiting. Tolerating some oral intake. She will let us know if ready to try some GI soft diet. Hypoglycemia improved. Hypernatremia, hyper chloremia with improvement. With tolerating some oral intake will decrease IV fluid rate down to 30 cc/h. Monitor for risk of fluid overload with IV fluids. Monitor for risk of hypoglycemia with decreasing rate of D5. SIRS with improvement. Leukocytosis down to 11.5. Afebrile. Reviewed vitals, CBC. Reviewed blood culture, negative to date. Moderately severe acute pancreatitis with SIRS, fever 100.8, WBC 17.55, tachycardia 109, severe abdominal pain, pancreatitis findings on CT, lipase elevation 412, persistent nausea and vomiting despite treatment. Reviewed vitals, CBC, CMP, magnesium, lipase, troponin, CT abdomen pelvis, UA, ketones, coronavirus PCR panel, ER note, discussed with ER provider. With noted elevation of transaminases, alk phos, CT scan was discussed with radiology by ER provider, CBD appeared normal, low suspicion of choledocholithiasis/ascending cholangitis, abdominal ultrasound is requested. For now empirically antibiotic started with Zosyn due to SIRS without obvious source for sepsis/infection. Bowel rest, n.p.o., required 12 mg IV morphine in ER, will give IV Dilaudid for pain control. IV Zofran. IV fluids with LR. Received magnesium, recheck level. Check phosphorus. Repeat chemistry. Monitor hemodynamics with severe hypertension currently, at risk of shock, hypotension with severe pancreatitis. With recurrent pancreatitis, discussed with her would benefit from follow-up with gastroenterology to look for any other possible etiology, including possibility of autoimmune disease. Qualifiers: Acute pancreatitis complication: unspecified Pancreatitis type: u nspecified pancreatitis type Qualified Code(s): K85.90 - Acute pancreatitis without necrosis or infection, unspecified (3) Elevated troponin: Reviewed cardiology note. As per discussion with cardiology once her condition further improves, she is able to lay flat to tolerate the procedure she would benefit from additional assessment by coronary angiography as discussed with her to further assess for significant coronary disease, need for possible intervention. She tells me they have discussed with cardiology regarding NSTEMI, recommendation for additional assessment with coronary angiography once she is doing a bit better from perspective of pancreatitis. She will need to be able to lay still, nausea has been improving, but she has been dealing with some significant anxiety. Add Xanax as needed. Ativan for severe anxiety. Precedex if needed. Baseline troponin normal, at 2 hours troponin up to 71.4. Complete troponin series. Monitor on telemetry. Possible NSTEMI. Allergic to aspirin. On anticoagulation with Eliquis at home, will switch to Lovenox here. Obtain limited TTE. Cardiology is consulted. Has risk factors of coronary disease, would benefit from further risk stratification depending on clinical course and findings. (4) Nausea and vomiting: Nausea with some improvement but she has been bothered by crippling anxiety. Without improvement so far, continue bowel rest. Pain control, IV antiemetic. IV fluids. Unable to tolerate her medications, will transition Keppra to IV for now. Additionally unable to tolerate clonidine with likely rebound hypertension as well, discussed with her starting patch. (5) Transaminitis: Now resolved. Reviewed transaminases, with improvement. T. bili is normal. Alk phos down to 381. Pending ultrasound assessment for choledocholithiasis. Low likelihood based on CT as per radiologist. Obtain viral hepatitis panel. (6) Hypomagnesemia: Requested magnesium replacement. Recheck level. Received magnesium. Recheck level. (7) High anion gap metabolic acidosis: High anion gap metabolic acidosis with severe lactic acidosis, lactic acid 5.5. Additional hydration with IV LR. Reassess. Repeat chemistry. Reassess kidney function. At risk of ALEIDA. Serum ketones are negative. Monitor blood glucose. Continue insulin. Plan Hematuria: Noted pink discoloration to urine. No obvious medications that should contribute. Collected UA, 80-100 RBC, 10-15 WBC. Possible cystitis. Switch antibiotic from Zosyn to ceftriaxone. Urine culture pending. Follow-up. CT abdomen pelvis reviewed, no obvious stones, no hydronephrosis. Other obvious pathology to explain hematuria on contrast-enhanced study. She is producing urine. Creatinine is 0.3. Negative protein in UA. Currently on anticoagulation with Lovenox, at home was on Eliquis. Reassess hematuria. Urine cultures. Blood counts. Diabetes: Trial of consistent carb clear liquid diet. Advance to GI soft consistent carb diet if continues to tolerate. Reduce insulin Lantus dose to 10 units twice daily. Accu-Cheks. Sliding scale insulin. Epilepsy: Unable to keep down oral medications. Switch Keppra to IV. Her is to bring in her home brivaracetam Aortic regurgitation, bicuspid aortic valve. Attestations 2 Medical Necessity Statement*: Continue admission for assessment and management of poorly controlled hypertension with hypertensive tachycardic episodes with anxiety, possible pheochromocytoma, with severe hypertensive episodes, acute pancreatitis, metabolic acidosis, hyperchloremic acidosis, hypoglycemia, NSTEMI pending additional assessment with coronary angiography. and High MDM includes described risk of complication, morbidity or mortality of management as documented Diagnoses Hypertensive urgency I16.0 Acute pancreatitis, unspecified complication status, unspecified pancreatitis type K85.90 Acute pancreatitis complication: unspecified Pancreatitis type: unspecified pancreatitis type Elevated troponin R79.89 Nausea and vomiting R11.2 Transaminitis R74.01 Hypomagnesemia E83.42 High anion gap metabolic acidosis E87.29
[2024-04-21] MEDS: tizanidine 4 mg Tablet PO (16:44)
[2024-04-21 16:52] LABS: Glucose Point of Care 90 mg/dL (70-110)
[2024-04-21] MEDS: cefTRIAXone 1,000 mg SDV 1000 MG IVP (21:21)
[2024-04-21 23:55] LABS: Glucose Point of Care 114 mg/dL (70-110)
[2024-04-22] VITALS (13 sets, daily range): BP systolic 102–193; BP diastolic 54–117; PULSE 84–104; RESP 14–22; TEMP 36.7–37.1; O2SAT 92–98; BMI 33.0
[2024-04-22] MEDS: LORazepam 2 mg/mL INJ 1 mL 1 MG IVP ×4 (00:31→21:59)
[2024-04-22] MEDS: labetalol 5 mg/mL SDV 20mL 10 MG IVP ×2 (00:51→13:49)
[2024-04-22] MEDS: tizanidine 4 mg Tablet PO ×2 (01:10→13:49)
[2024-04-22] MEDS: morphine 4 mg/mL SDV 1 mL IVP ×3 (04:17→13:49)
[2024-04-22] MEDS: enoxaparin 80 mg/0.8 mL Syringe 70 MG SUBCUT ×2 (04:17→16:21)
[2024-04-22 04:33] LABS: Basophils # 0.1 10^3/uL (0.0-0.1); Basophils % 0.6 %; Eosinophils # 0.2 10^3/uL (0.0-0.8); Eosinophils % 2.9 %; Hematocrit 33.9 % (36-47); Lymphocytes # 4.8 10^3/uL (0.8-4.8); Lymphocytes % 57.4 %; Mean Corpuscular HGB Conc 31.9 g/dL (30-55); Mean Corpuscular Hemoglobin 28.3 pg (27-33); Mean Corpuscular Volume 88.7 fl (85-98); Mean Platelet Volume 10.8 fL (7.4-10.4); Monocytes # 0.7 10^3/uL (0.2-0.9); Monocytes % 8.7 %; Neutrophils # 2.49 10^3/uL (1.8-7.7); Neutrophils % 30.2 %; Nucleated Red Blood Cells % 0 %; Platelet Count 244 10^3/cmm (157-399); Red Blood Count 3.82 10^6/uL (3.85-5.65); Red Cell Distribution Width 16.5 % (12.1-15.1); White Blood Count 8.27 10^3/uL (3.29-11.43)
[2024-04-22 04:49] LABS: Alanine Aminotransferase 10 U/L (0-33); Albumin Level 2.4 g/dL (3.5-5.2); Alkaline Phosphatase 153 U/L (35-105); Anion Gap 11.4 (5-19); Aspartate Amino Transferase 15 U/L (0-32); Calcium 7.7 mg/dL (8.5-10.5); Carbon Dioxide 28 mmol/L (22-29); Chloride 107 mmol/L (98-107); Globulin 2.4 g/dL (1.3-4.6); Glomerular Filtration Rate 241.7 mL/min (90-130); Glucose 145 mg/dL (65-115); Lipase 19 U/L (13-60); Potassium 3.4 mmol/L (3.5-5.1); Sodium 143 mmol/L (136-145); Total Bilirubin 0.2 mg/dL (0.15-1.2); Total Protein 4.8 g/dL (6.6-8.7)
[2024-04-22 04:50] LABS: Blood Urea Nitrogen 1 mg/dL (6-20); Osmolality Calculated 294 mOsm/kg (285-295)
[2024-04-22 06:26] LABS: Glucose Point of Care 117 mg/dL (70-110)
--- NOTE | 2024-04-22 06:50 | PM.PN ---
Subjective Subjective: Patient is awake and alert this morning. She says she is having nightmares. She does not offer any other complaints. Hemoglobin and hematocrit are stable. Renal function is stable. Vitals/I&O/Wt Last Vital Signs Temp 98.5 F 04/22/24 04:25 Pulse 87 04/22/24 06:00 Resp 15 04/22/24 04:25 BP 102/54 04/22/24 04:25 Pulse Ox 93 04/22/24 04:25 O2 Del Method Room Air 04/21/24 20:00 04/21/24 04/21/24 04/22/24 14:59 22:59 06:59 Intake Total 600 / 600 240 / 840 Output Total 1400 / 1400 2400 / 3800 600 / 4400 Balance -800 / -800 -2160 / -2960 -600 / -3560 Weight last 48 hrs Weight 169 lb 3 oz Weight 169 lb 3 oz Physical Exam Narrative: GENERAL: In general she looks comfortable at rest HEENT: Exam within normal limits. NECK: Supple without jugular vein distention. The carotid upstroke is normal without bruits. BACK: Exam normal. LUNGS: Clear. HEART: Regular rate and rhythm. ABDOMEN: Benign without organomegaly or tenderness. EXTREMITIES: No edema. NEUROLOGIC: Exam normal. SKIN: Unremarkable. Urinary Catheter Management: Preston: Cath Placed During This Visit: yes Reason for Continuing Indwelling Catheter: Other Urinary Catheter Date of Insertion: 04/16/24 Urinary Catheter Time of Insertion: 18:58 Data 04/22/24 04:16 04/22/24 04:16 Micro: Microbiology 04/16/24 11:30 Blood Culture - Final Blood NO GROWTH AFTER 5 DAYS 04/16/24 11:47 Blood Culture - Final Blood NO GROWTH AFTER 5 DAYS 04/20/24 11:52 Urine Culture - Preliminary Urine,Clean Catch A&P Assessment and plan (1) Aortic regurgitation: (2) HOCM (hypertrophic obstructive cardiomyopathy): (3) Hypertension: (4) Atrial fibrillation: (5) Elevated troponin: (6) Aortic valve, bicuspid: (7) DM2 (diabetes mellitus, type 2): Qualifiers: Diabetes mellitus ocean [employer] intermediary insulin use: with ocean transportation intermediary use Diabetes mellitus complication status: with other specified complication Qualified Code(s): E11.69 - Type 2 diabetes mellitus with other specified complication; Z79.4 - FDC (current) use of insulin (8) Adrenal nodule: (9) Chronic pancreatitis: (10) Transaminitis: Plan She is fine from a cardiac standpoint. The Preston catheter should come out. No changes. Attestations Medical Necessity Statement*: Hospitalization for management of multiple medical problems and Moderate Time for a total of 30 minutes, includes reviewing past or interval history, examining/interviewing patient, counseling patient/family/other support, updating patient/family/other support, discussing plan of care with staff, communicating with other healthcare providers and documenting encounter Diagnoses Aortic regurgitation I35.1 HOCM (hypertrophic obstructive cardiomyopathy) I42.1 Hypertension I10 Atrial fibrillation I48.91 Elevated troponin R79.89 Aortic valve, bicuspid Q23.1 Type 2 diabetes mellitus with other specified complication, with long-term current use of insulin E11.69; Z79.4 Diabetes mellitus [employer] intermediary insulin use: with [facility] use Diabetes mellitus complication status: with other specified complication Adrenal nodule E27.8 Chronic pancreatitis K86.1 Transaminitis R74.01
[2024-04-22] MEDS: potassium chloride ER 20 mEq Tablet PO ×2 (09:21→13:49)
[2024-04-22] MEDS: levETIRAcetam 500 mg Tablet 1250 MG PO ×2 (09:21→17:57)
[2024-04-22] MEDS: insulin glargine 100 units/1 mL 2 UNIT SUBCUT ×2 (09:21→17:57)
[2024-04-22] MEDS: clopidogrel 75 mg Tablet PO (09:21)
[2024-04-22] MEDS: morphine ER (12 HR) 30 mg tablet PO ×2 (09:21→21:22)
[2024-04-22] MEDS: ondansetron 2 mg/ML SDV 2 mL 4 MG IVP (09:22)
[2024-04-22] MEDS: fluticasone nasal spray 16gm Btl 2 SPRAY NASAL (09:23)
[2024-04-22] MEDS: BRIVARACETAM 25 MG 25 EACH PO (09:23)
[2024-04-22] MEDS: metoprolol tartrate 25 mg Tablet PO (09:26)
[2024-04-22 11:50] LABS: Glucose Point of Care 107 mg/dL (70-110)
[2024-04-22] MEDS: ALPRAZolam 0.5 mg Tablet 1 MG PO (13:49)
[2024-04-22] MEDS: metoclopramide 5 mg/mL SDV 2 mL IVP (13:49)
[2024-04-22 16:36] LABS: Glucose Point of Care 142 mg/dL (70-110)
[2024-04-22] MEDS: insulin lispro 100 unit/1 mL SUBCUT (17:58)
--- NOTE | 2024-04-22 19:22 | P.PN_ITS ---
Subjective 2 Subjective: She is still having abdominal pain. Poor appetite. Reports that she had a similar course after her prior pancreatitis with protracted difficulty returning to her usual self. Vitals/I&O/Wt Last Vital Signs Temp 98.0 F 04/22/24 15:51 Pulse 99 04/22/24 15:51 Resp 22 H 04/22/24 15:51 BP 193/117 04/22/24 15:51 Pulse Ox 96 04/22/24 07:50 O2 Del Method Room Air 04/22/24 07:50 04/22/24 04/22/24 04/22/24 06:59 14:59 22:59 Intake Total 60 / 60 1240 / 1300 Output Total 600 / 4400 1300 / 1300 1550 / 2850 Balance -600 / -3560 -1240 / -1240 -310 / -1550 Weight last 48 hrs Weight 76.742 kg Weight 76.742 kg Physical Exam 2 Narrative: Accompanied by her . Const: COMMON NORMALS: patient oriented x3 and alert GENERAL APPEARANCE: c ooperative NUTRITIONAL APPEARANCE: obese ORIENTATION/CONSCIOUSNESS: Yes awake HENMT: COMMON NORMALS: oropharynx normal Neck/C-Spine: COMMON NORMALS: no JVD Resp: COMMON NORMALS: normal respiratory effort and clear to auscultation bilaterally AUSCULTATION: clear to auscultation bilaterally Cardio: COMMON NORMALS: no JVD, regular rhythm, S1 normal heart sound present, S2 normal heart sound present and No murmurs present (Cardio) RHYTHM: regular rhythm HEART SOUNDS: S1 normal heart sound present and S2 normal heart sound present GI: COMMON NORMALS: Normal to inspection, nondistended, normoactive bowel sounds present and Soft to palpation PALPATION: Yes Soft to palpation O THER: Some mild generalized abdominal tenderness, seems even with some shallower palpation, possibly abdominal muscle wall with dry heaving. More so on the right side. Extremity: COMMON NORMALS: no joint enlargement and no pedal edema Neuro: COMMON NORMALS: patient oriented x3 and moves all extremities S ENSORIUM/ORIENTATION: Yes alert Skin: COMMON NORMALS: no rashes or lesions noted GENERAL SKIN EXAM: no rashes or lesions noted Urinary Catheter Management: Preston: Cath Placed During This Visit: yes Reason for Continuing Indwelling Catheter: Other Urinary Catheter Date of Insertion: 04/16/24 Urinary Catheter Time of Insertion: 18:58 Data 04/22/24 04:16 04/22/24 04:16 Micro: Microbiology 04/20/24 11:52 Urine Culture - Final Urine,Clean Catch A&P Assessment and plan (1) Hypertensive urgency: Reviewed vitals, she appears to be responding well to labetalol in terms of blood pressure response. Still having blood pressure spikes, tachycardia spikes, anxiety episodes which seem to be worsened by abdominal pain possibly exacerbated by dry heaving. Workup for possible pheochromocytoma, reviewed serum catecholamines, pending, also pending 24-hour urine collection, although has not yet been started, discussed with nursing. Consider starting standing labetalol, however, on literature review there may be some elevation of urinary catecholamine excretion with labetalol, will for now switch from metoprolol to propranolol. IV labetalol as needed for breakthroughs due to still severe blood pressure spikes, if not responding, Esmolol drip. As per discussion with her and her , reviewed past urine catecholamine study which was negative, however, reports an earlier study which at 1 point was somewhat positive, it seems that tests were inconclusive in the past. Given recurrent spikes of hypertension, tachycardia, anxiety, requesting reassessment of plasma catecholamines as well as 24-hour urine collection during active episode. Episodes of severe anxiety, accompanied by severe blood pressure elevation as well as tachycardia. Considered also possible withdrawal from medication or substance, unclear what at current time. Possibly component of withdrawal from clonidine when she was unable to take the medication. Continues on clonidine patch. Otherwise reviewed prior studies as well, urine catecholamines were not elevated back in January. Toxicology previously positive for opiates, otherwise negative. Continue to hold off scopolamine as well initially with consideration of component of anticholinergic syndrome. Pancreatitis is improving, nausea and vomiting improving, she is tolerating some oral medications, some oral intake. With some severe/crippling anxiety episodes still present continue anxiety treatment, with risk of respiratory suppression, blood pressure and heart rate fluctuation, continuing Xanax, increased frequency to every 6 hours, Ativan as needed for severe anxiety by IV, Precedex if needed. 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 On admission did not respond to IV metoprolol pushes in ER. Started on esmolol drip. Continue small drip, monitor blood pressure. Likely component of rebound hypertension with clonidine which she has been unable to take due to nausea and vomiting. (2) Acute pancreatitis: Reviewed lipase, normalized, transaminases normal. Reviewed gallbladder ultrasound, discussed with her and her . Noted hypoechoic lesion in the right lobe of the liver most consistent with focal sparing. Status postcholecystectomy, nondilated CBD, 3 mm. She does state that it took her a while to come around from previous bout of pancreatitis with persistent pain, nausea. Has had poor oral intake. Continue nausea control, analgesia, oral intake as tolerating. Added Ensure clears. Encouraged follow-up with gastroenterology given recurrence of pancreatitis. Initial bout was thought to be secondary to a medication, but she has not been on that medicine prior to the current bout. Reviewed lipase, CMP, right upper quadrant ultrasound. Reviewed CMP, potassium, transaminases, magnesium, lipase. Lipase normalized. With improvement in nausea and vomiting. Tolerating some oral intake. She will let us know if ready to try some GI soft diet. Hypoglycemia improved. Hypernatremia, hyper chloremia with improvement. With tolerating some oral intake will decrease IV fluid rate down to 30 cc/h. Monitor for risk of fluid overload with IV fluids. Monitor for risk of hypoglycemia with decreasing rate of D5. SIRS with improvement. Leukocytosis down to 11.5. Afebrile. Reviewed vitals, CBC. Reviewed blood culture, negative to date. Moderately severe acute pancreatitis with SIRS, fever 100.8, WBC 17.55, tachycardia 109, severe abdominal pain, pancreatitis findings on CT, lipase elevation 412, persistent nausea and vomiting despite treatment. Reviewed vitals, CBC, CMP, magnesium, lipase, troponin, CT abdomen pelvis, UA, ketones, coronavirus PCR panel, ER note, discussed with ER provider. With noted elevation of transaminases, alk phos, CT scan was discussed with radiology by ER provider, CBD appeared normal, low suspicion of choledocholithiasis/ascending cholangitis, abdominal ultrasound is requested. For now empirically antibiotic started with Zosyn due to SIRS without obvious source for sepsis/infection. Bowel rest, n.p.o., required 12 mg IV morphine in ER, will give IV Dilaudid for pain control. IV Zofran. IV fluids with LR. Received magnesium, recheck level. Check phosphorus. Repeat chemistry. Monitor hemodynamics with severe hypertension currently, at risk of shock, hypotension with severe pancreatitis. With recurrent pancreatitis, discussed with her would benefit from follow-up with gastroenterology to look for any other possible etiology, including possibility of autoimmune disease. Qualifiers: Acute pancreatitis complication: unspecified Pancreatitis type: u nspecified pancreatitis type Qualified Code(s): K85.90 - Acute pancreatitis without necrosis or infection, unspecified (3) Elevated troponin: Reviewed cardiology note. She is found to be stable. No changes. As per discussion with cardiology once her condition further improves, she is able to lay flat to tolerate the procedure she would benefit from additional assessment by coronary angiography as discussed with her to further assess for significant coronary disease, need for possible intervention. She tells me they have discussed with cardiology regarding NSTEMI, recommendation for additional assessment with coronary angiography once she is doing a bit better from perspective of pancreatitis. She will need to be able to lay still, nausea has been improving, but she has been dealing with some significant anxiety. Add Xanax as needed. Ativan for severe anxiety. Precedex if needed. Baseline troponin normal, at 2 hours troponin up to 71.4. Complete troponin series. Monitor on telemetry. Possible NSTEMI. Allergic to aspirin. On anticoagulation with Eliquis at home, will switch to Lovenox here. Obtain limited TTE. Cardiology is consulted. Has risk factors of coronary disease, would benefit from further risk stratification depending on clinical course and findings. (4) Nausea and vomiting: Nausea with some improvement but she has been bothered by crippling anxiety. Without improvement so far, continue bowel rest. Pain control, IV antiemetic. IV fluids. Unable to tolerate her medications, will transition Keppra to IV for now. Additionally unable to tolerate clonidine with likely rebound hypertension as well, discussed with her starting patch. (5) Transaminitis: Now resolved. Reviewed transaminases, with improvement. T. bili is normal. Alk phos down to 381. Pending ultrasound assessment for choledocholithiasis. Low likelihood based on CT as per radiologist. Obtain viral hepatitis panel. (6) Hypomagnesemia: Requested magnesium replacement. Recheck level. Received magnesium. Recheck level. (7) High anion gap metabolic acidosis: Resolved. Possibly early ketosis on presentation, although serum ketones negative. Monitor blood glucose. Continue insulin. Plan Hematuria: Hematuria now noted resolved. Remove Preston catheter. Possible UTI by UA, although culture unrevealing. She is afebrile, without further leukocytosis. Stop ceftriaxone. Diarrhea: Check C. difficile. Diabetes: Trial of consistent carb clear liquid diet. Advance to GI soft consistent carb diet if continues to tolerate. Reduce insulin Lantus dose to 2 units twice daily. Have not been able to advance with poor appetite and oral intake. Accu-Cheks. Sliding scale insulin. Epilepsy: Unable to keep down oral medications. Switch Keppra to IV. Her is to bring in her home brivaracetam Aortic regurgitation, bicuspid aortic valve. Attestations 2 Medical Necessity Statement*: Continue admission for assessment and management of poorly controlled hypertension with hypertensive tachycardic episodes with anxiety, possible pheochromocytoma, with severe hypertensive episodes, N/V, abdominal pain, NSTEMI pending additional assessment with coronary angiography. Diagnoses Hypertensive urgency I16.0 Acute pancreatitis, unspecified complication status, unspecified pancreatitis type K85.90 Acute pancreatitis complication: unspecified Pancreatitis type: unspecified pancreatitis type Elevated troponin R79.89 Nausea and vomiting R11.2 Transaminitis R74.01 Hypomagnesemia E83.42 High anion gap metabolic acidosis E87.29
[2024-04-22 19:55] LABS: C.Diff PCR (Lab) NEGATIVE (Negative)
[2024-04-22] MEDS: cefTRIAXone 1,000 mg SDV 1000 MG IVP (21:21)
[2024-04-22] MEDS: propranolol 20 mg Tablet PO (21:22)
[2024-04-23] VITALS (16 sets, daily range): BP systolic 94–177; BP diastolic 50–102; PULSE 75–96; RESP 14–21; TEMP 36.3–36.8; O2SAT 91–96
[2024-04-23] MEDS: morphine 4 mg/mL SDV 1 mL IVP ×2 (00:08→05:33)
[2024-04-23 00:19] LABS: Glucose Point of Care 96 mg/dL (70-110)
[2024-04-23] MEDS: labetalol 5 mg/mL SDV 20mL 10 MG IVP (02:30)
[2024-04-23] MEDS: ALPRAZolam 0.5 mg Tablet 1 MG PO (02:31)
[2024-04-23] MEDS: enoxaparin 80 mg/0.8 mL Syringe 70 MG SUBCUT ×2 (05:34→15:11)
[2024-04-23 05:52] LABS: Basophils % 0.5 %; Eosinophils # 0.3 10^3/uL (0.0-0.8); Eosinophils % 3.8 %; Hematocrit 41.1 % (36-47); Lymphocytes # 4.3 10^3/uL (0.8-4.8); Lymphocytes % 52.8 %; Mean Corpuscular HGB Conc 31.1 g/dL (30-55); Mean Corpuscular Hemoglobin 27.5 pg (27-33); Mean Corpuscular Volume 88.4 fl (85-98); Mean Platelet Volume 10.5 fL (7.4-10.4); Monocytes # 0.8 10^3/uL (0.2-0.9); Monocytes % 9.5 %; Neutrophils # 2.68 10^3/uL (1.8-7.7); Nucleated Red Blood Cells % 0 %; Platelet Count 290 10^3/cmm (157-399); Red Blood Count 4.65 10^6/uL (3.85-5.65); Red Cell Distribution Width 16.4 % (12.1-15.1); White Blood Count 8.11 10^3/uL (3.29-11.43)
[2024-04-23 05:56] LABS: Glucose Point of Care 93 mg/dL (70-110)
[2024-04-23] MEDS: LORazepam 2 mg/mL INJ 1 mL 1 MG IVP ×4 (05:56→21:43)
[2024-04-23] MEDS: ondansetron 2 mg/ML SDV 2 mL 4 MG IVP ×2 (06:04→09:29)
[2024-04-23 06:10] LABS: Alanine Aminotransferase 11 U/L (0-33); Albumin Level 2.9 g/dL (3.5-5.2); Alkaline Phosphatase 185 U/L (35-105); Anion Gap 12.9 (5-19); Aspartate Amino Transferase 16 U/L (0-32); Blood Urea Nitrogen 2 mg/dL (6-20); Calcium 8.5 mg/dL (8.5-10.5); Carbon Dioxide 29 mmol/L (22-29); Chloride 103 mmol/L (98-107); Creatinine Clr Calc Pharmacy 159.4475; Globulin 2.7 g/dL (1.3-4.6); Glomerular Filtration Rate 173.4 mL/min (90-130); Glucose 101 mg/dL (65-115); Magnesium 1.6 mg/dL (1.7-2.3); Osmolality Calculated 288 mOsm/kg (285-295); Potassium 3.9 mmol/L (3.5-5.1); Sodium 141 mmol/L (136-145); Total Bilirubin 0.4 mg/dL (0.15-1.2); Total Protein 5.6 g/dL (6.6-8.7)
--- NOTE | 2024-04-23 06:35 | PC.NURSE ---
currently collecting a 24 hr urine. first jug in lab as it was full. second jug started this am. next shift notified.
[2024-04-23] MEDS: magnesium sulfate premix 2 GM/50 ML PIGGYBACK IV (08:03)
[2024-04-23] MEDS: morphine ER (12 HR) 30 mg tablet PO ×2 (08:04→20:07)
[2024-04-23] MEDS: potassium chloride ER 20 mEq Tablet PO (09:13)
[2024-04-23] MEDS: fluticasone nasal spray 16gm Btl 2 SPRAY NASAL (09:13)
[2024-04-23] MEDS: clopidogrel 75 mg Tablet PO (09:13)
[2024-04-23] MEDS: propranolol 20 mg Tablet PO ×3 (09:13→20:06)
[2024-04-23] MEDS: BRIVARACETAM 25 MG 25 EACH PO (09:13)
[2024-04-23] MEDS: levETIRAcetam 500 mg Tablet 1250 MG PO ×2 (09:13→17:01)
[2024-04-23] MEDS: insulin glargine 100 units/1 mL 2 UNIT SUBCUT ×2 (09:14→16:59)
--- NOTE | 2024-04-23 09:18 | PC.SOCIAL ---
IMM Update Pg. 2 of IMM updated and reviewed with patient who verbalized understanding. Copy provided.
[2024-04-23] MEDS: tizanidine 4 mg Tablet PO ×2 (09:29→20:06)
--- NOTE | 2024-04-23 10:47 | P.PN_ITS ---
Subjective 2 Subjective: Eleanor reports she still having a lot of discomfort today. She is wondering what cardiology is going to do, if she needs an angiogram. She still has some abdominal pain. We discussed the importance of pain control, and trying to reduce IV pain medication usage. Blood pressure still fluctuating quite a bit. Medications: Reviewed: Yes Vitals/I&O/Wt Last Vital Signs Temp 97.9 F 04/23/24 07:43 Pulse 96 04/23/24 07:43 Resp 16 04/23/24 08:04 BP 160/90 04/23/24 07:43 Pulse Ox 93 04/23/24 08:04 O2 Del Method Room Air 04/23/24 07:43 04/22/24 04/23/24 04/23/24 22:59 06:59 14:59 Intake Total 1240 / 1300 240 / 1540 290 / 290 Output Total 1550 / 2850 1450 / 4300 Balance -310 / -1550 -1210 / -2760 290 / 290 Weight last 48 hrs Weight 72.439 kg Weight 76.742 kg Physical Exam 2 Narrative: General exam, Pain Neck is supple Cardiovascular regular rate and rhythm Lungs clear Abdomen is soft, subjective tenderness. No rebound. Positive bowel sounds Extremities no cyanosis clubbing or edema Urinary Catheter Management: Preston: Cath Placed During This Visit: yes Reason for Continuing Indwelling Catheter: Accurate Measurement of Urinary Output in Critically Ill Patients Urinary Catheter Date of Insertion: 04/16/24 Urinary Catheter Time of Insertion: 18:58 Data 04/23/24 05:42 04/23/24 05:42 Micro: Microbiology 04/20/24 11:52 Urine Culture - Final Urine,Clean Catch A&P Assessment and plan (1) Hypertensive urgency: Reviewed vitals, she appears to be responding well to labetalol in terms of blood pressure response. Still having blood pressure spikes, tachycardia spikes, anxiety episodes which seem to be worsened by abdominal pain possibly exacerbated by dry heaving. Currently being worked up for possible pheochromocytoma with 24-hour urine. Preston is in for this. IV labetalol as needed for breakthroughs due to still severe blood pressure spikes, if not responding, Esmolol drip. As per discussion with her and her , reviewed past urine catecholamine study which was negative, however, reports an earlier study which at 1 point was somewhat positive, it seems that tests were inconclusive in the past. Given recurrent spikes of hypertension, tachycardia, anxiety, requesting reassessment of plasma catecholamines as well as 24-hour urine collection during active episode. Episodes of severe anxiety, accompanied by severe blood pressure elevation as well as tachycardia. Considered also possible withdrawal from medication or substance, unclear what at current time. Possibly component of withdrawal from clonidine when she was unable to take the medication. Continues on clonidine patch. Cardiology originally considering possible angiogram. Will discuss with them today. Continue clonidine today. Add Imdur Continue propranolol Overall improving (2) Acute pancreatitis: Reviewed lipase, normalized, transaminases normal. Reviewed gallbladder ultrasound, discussed with her and her . Noted hypoechoic lesion in the right lobe of the liver most consistent with focal sparing. Status postcholecystectomy, nondilated CBD, 3 mm. She does state that it took her a while to come around from previous bout of pancreatitis with persistent pain, nausea. Has had poor oral intake. Continue nausea control, analgesia, oral intake as tolerating. Added Ensure clears. Encouraged follow-up with gastroenterology given recurrence of pancreatitis. Initial bout was thought to be secondary to a medication, but she has not been on that medicine prior to the current bout. Reviewed lipase, CMP, right upper quadrant ultrasound. Advance diet to full liquids With recurrent pancreatitis, discussed with her would benefit from follow-up with gastroenterology to look for any other possible etiology, including possibility of autoimmune disease. Triglyceride level was not elevated Qualifiers: Acute pancreatitis complication: unspecified Pancreatitis type: u nspecified pancreatitis type Qualified Code(s): K85.90 - Acute pancreatitis without necrosis or infection, unspecified (3) Elevated troponin: Reviewed cardiology note. She is found to be stable. No changes. As per discussion with cardiology once her condition further improves, she is able to lay flat to tolerate the procedure she would benefit from additional assessment by coronary angiography as discussed with her to further assess for significant coronary disease, need for possible intervention. She tells me they have discussed with cardiology regarding NSTEMI, recommendation for additional assessment with coronary angiography once she is doing a bit better from perspective of pancreatitis. She will need to be able to lay still, nausea has been improving, but she has been dealing with some significant anxiety. Add Xanax as needed. Ativan for severe anxiety. Precedex if needed. Baseline troponin normal, at 2 hours troponin up to 71.4. Complete troponin series. Monitor on telemetry. Possible NSTEMI. Allergic to aspirin. On anticoagulation with Eliquis at home, will switch to Lovenox here. Obtain limited TTE. Cardiology is consulted. Has risk factors of coronary disease, would benefit from further risk stratification depending on clinical course and findings. Currently on Lovenox Plavix was added by cardiology Add Imdur 30 mg daily (4) Nausea and vomiting: Nausea with some improvement but she has been bothered by crippling anxiety. Improved (5) Transaminitis: Now resolved. Hepatitis panel negative Gallbladder ultrasound fatty liver (6) Hypomagnesemia: Replaced today (7) High anion gap metabolic acidosis: Resolved. Possibly early ketosis on presentation, although serum ketones negative. Monitor blood glucose. Continue insulin. Plan Hematuria: Urine culture negative, Rocephin stopped Diarrhea: C. difficile negative Diabetes: Continue current regimen. Consistent carb full liquid diet Epilepsy: Keppra p.o. Aortic regurgitation, bicuspid aortic valve. Attestations 2 Medical Necessity Statement*: Needs continued hospitalization for adjustment of medications for hypertensive urgency, cardiology follow-up for concerns of elevated troponin, advancing diet in this patient with acute pancreatitis. Diagnoses Hypertensive urgency I16.0 Acute pancreatitis, unspecified complication status, unspecified pancreatitis type K85.90 Acute pancreatitis complication: unspecified Pancreatitis type: unspecified pancreatitis type Elevated troponin R79.89 Nausea and vomiting R11.2 Transaminitis R74.01 Hypomagnesemia E83.42 High anion gap metabolic acidosis E87.29 Time Spent (min) 45
[2024-04-23 11:50] LABS: Glucose Point of Care 142 mg/dL (70-110)
--- NOTE | 2024-04-23 12:41 | ECG_ITS ---
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 Interpretive Statements NAME OF STUDY: LEXISCAN SESTAMIBI STRESS TEST INDICATION: Chest Pain PROCEDURE: At the baseline, the EKG revealed sinus tachycardia with a poor R wave progression. Possible old anterior wall MA. Diffuse nonspecific T wave changes. The baseline heart was 101 bpm with a blood pressue of 182/117 mm of Hg Lexiscan was infused over a period of 20 seconds. A total of 0.4 milligrams of Lexiscan was infused. The stress phase was continued for a total of 5 minutes. Heart rate at the end of the stress phase was 98 bpm with a blood pressure 96/68 mm of Hg. The EKG at the peak infusion revealed no significant changes. Sestamibi was injected 20 seconds after the Lexiscan infusion. Heart rate at the end of the recovery phase was 103 bpm with a blood pressure of 95/69 mm of Hg. CONCLUSION: 1. No significant EKG changes with the LexiScan infusion 2. No LexiScan induced chest pain or cardiac arrhythmia 3. Normal blood pressure and heart rate response 4. Sestamibi/sestamibi perfusion scan pending; see separate report. Electronically Signed On 04-29-2024 20:55:51 CDT by Дмитрий Brito M.D. [email or web address]
--- NOTE | 2024-04-23 13:21 | P.PN_ITS ---
Subjective 2 Subjective: Patient is resting comfortably and was very sleepy at the time of my examination. Denies any specific complaints. Vital signs seems to be stable. Telemetry shows sinus rhythm. Medications: Medication Review Details: Current Medications Bisacodyl (Bisacodyl 10 Mg Supp) 10 mg MO DAILY PRN PRN Reason: CONSTIPATION Clonidine HCl (Clonidine 0.1 Mg/24 Hr Patch) 1 patch TRANSDERMA Q7D [facility] Last Admin: 04/19/24 07:52 Dose: 1 patch Clopidogrel Bisulfate (Clopidogrel 75 Mg Tablet) 75 mg PO DAILY [facility] Last Admin: 04/23/24 09:13 Dose: 75 mg Enoxaparin Sodium (Enoxaparin 80 Mg/0.8 Ml Syringe) 70 mg SUBCUT Q12H [facility] Last Admin: 04/23/24 05:34 Dose: 70 mg Fluticasone Propionate (Fluticasone Nasal Helen 16gm Btl) 2 spray NASAL DAILY [facility] Last Admin: 04/23/24 09:13 Dose: 2 spray Glucagon (Glucagon 1 Mg/Ml Kit 1 Ml) 1 mg IM ONCE PRN; Protocol PRN Reason: Adult Acute Hypoglycemia Nursing Prot. Dextrose (D5w) 500 mls @ 0 mls/hr IV ONCE PRN; Protocol PRN Reason: Adult Acute Hypoglycemia Prot Dextrose (D10w) 125 mls @ 750 mls/hr IV PRN PRN; Protocol PRN Reason: Adult Acute Hypoglycemia Nursing Protocol Dextrose (D10w) 250 mls @ 1,000 mls/hr IV PRN PRN; Protocol PRN Reason: Adult Acute Hypoglycemia Nursing Protocol Dextrose/Sodium Chloride (Dextrose 5%-Sod Chloride 0.45%) 1,000 mls @ 30 mls/hr IV .Q24H [facility] Last Infusion: 04/22/24 15:56 Dose: Infused Insulin Glargine (Insulin Glargine 100 Units/1 Ml) 2 unit SUBCUT BID [facility] Last Admin: 04/23/24 09:14 Dose: 2 unit Insulin Human Lispro (Insulin Lispro 100 Unit/1 Ml) 0 unit SUBCUT Q6H [facility]; Protocol Last Admin: 04/23/24 13:06 Dose: Not Given Isosorbide Mononitrate (Isosorbide Mononitrate Er 30 Mg Tablet) 30 mg PO DAILY [facility] Labetalol HCl (Labetalol 5 Mg/Ml Sdv 20ml) 10 mg IVP Q3H PRN PRN Reason: HYPERTENSION Last Admin: 04/23/24 02:30 Dose: 10 mg Levetiracetam (Levetiracetam 500 Mg Tablet) 1,250 mg PO BID [facility] Last Admin: 04/23/24 09:13 Dose: 1,250 mg Lorazepam (Lorazepam 2 Mg/Ml Inj 1 Ml) 1 mg IVP Q4H PRN PRN Reason: ANXIETY Last Admin: 04/23/24 10:15 Dose: 1 mg Metoclopramide HCl (Metoclopramide 5 Mg/Ml Sdv 2 Ml) 5 mg IVP Q6H PRN PRN Reason: NAUSEA AND VOMITING Last Admin: 04/22/24 13:49 Dose: 5 mg Morphine Sulfate (Morphine 4 Mg/Ml Sdv 1 Ml) 4 mg IVP Q4H PRN PRN Reason: SEVERE PAIN Last Admin: 04/23/24 05:33 Dose: 4 mg Morphine Sulfate (Morphine Er (12 Hr) 30 Mg Tablet) 30 mg PO Q12H [facility] Last Admin: 04/23/24 08:04 Dose: 30 mg Non-Formulary Medication (Brivaracetam [Briviact]) 25 mg PO DAILY [facility] Last Admin: 04/23/24 09:13 Dose: 25 mg Ondansetron HCl (Ondansetron 2 Mg/Ml Sdv 2 Ml) 4 mg IVP Q6H PRN PRN Reason: NAUSEA AND VOMITING Last Admin: 04/23/24 09:29 Dose: 4 mg Oxycodone HCl (Oxycodone 5 Mg Ir Tab/Cap) 5 mg PO Q4H PRN PRN Reason: MODERATE PAIN Potassium Chloride (Potassium Chloride Er 20 Meq Tablet) 20 meq PO DAILY [facility] Last Admin: 04/23/24 09:13 Dose: 20 meq Propranolol HCl (Propranolol 20 Mg Tablet) 20 mg PO TID [facility] Last Admin: 04/23/24 09:13 Dose: 20 mg Sodium Chloride (Saline Nasal Helen 44ml Btl) 1 spray NASAL PRN PRN PRN Reason: DRYNESS Tizanidine HCl (Tizanidine 4 Mg Tablet) 4 mg PO TID PRN PRN Reason: MUSCLE SPASMS Last Admin: 04/23/24 09:29 Dose: 4 mg Vitals/I&O/Wt Last Vital Signs Temp 97.6 F 04/23/24 11:41 Pulse 75 04/23/24 11:41 Resp 14 04/23/24 11:41 BP 94/62 04/23/24 11:57 Pulse Ox 96 04/23/24 11:41 O2 Del Method Room Air 04/23/24 11:41 04/22/24 04/23/24 04/23/24 22:59 06:59 14:59 Intake Total 1240 / 1300 240 / 1540 290 / 290 Output Total 1550 / 2850 1450 / 4300 1250 / 1250 Balance -310 / -1550 -1210 / -2760 -960 / -960 Weight last 48 hrs Weight 159 lb 11.2 oz Weight 169 lb 3 oz Physical Exam 2 Narrative: GENERAL: The patient is alert and oriented times three. Continues to complain about abdominal pain HEENT: No significant pallor, icterus or lymphadenopathy.Oral cavity: There are no mucous membrane lesions. NECK: Trachea appears to be central. No masses noted. No JVD or thyromegaly appreciated. RESPIRATORY: Chest is symmetrical. No intercostals muscle retraction or any accessory muscle activation. There is no chest wall tenderness. Breath sounds are heard bilaterally. No rales or rhonchi heard. No evidence of any consolidation. BREASTS: Deferred. HEART: The heart sounds are normal. No S3 or S4. No significant murmurs. No pericardial rub ABDOMEN: Diffuse tenderness in the epigastric and periumbilical regions . No organomegaly appreciated. Bowel sounds are normally heard. : Deferred. RECTAL: Deferred. LYMPHATIC: No lymphadenopathy noted in the neck. EXTREMITIES: No edema or cyanosis. MUSCULOSKELETAL: No acute joint deformities or swelling SKIN: There are no significant rashes or ecchymosis NEUROPSYCHIATRIC: Patient is complaining about pain. Appears very uncomfortable, extremely nervous. Urinary Catheter Management: Preston: Cath Placed During This Visit: yes Reason for Continuing Indwelling Catheter: Accurate Measurement of Urinary Output in Critically Ill Patients Urinary Catheter Date of Insertion: 04/16/24 Urinary Catheter Time of Insertion: 18:58 Data 04/23/24 05:42 04/23/24 05:42 Other Labs: Laboratory Last Values WBC 8.11 10^3/uL (3.29-11.43) 04/23/24 05:42 RBC 4.65 10^6/uL (3.85-5.65) 04/23/24 05:42 Hgb 12.80 g/dL (11.27-16.99) 04/23/24 05:42 Hct 41.1 % (36-47) 04/23/24 05:42 MCV 88.4 fl (85-98) 04/23/24 05:42 MCH 27.5 pg (27-33) 04/23/24 05:42 MCHC 31.1 g/dL (30-55) 04/23/24 05:42 RDW 16.4 % (12.1-15.1) H 04/23/24 05:42 Plt Count 290 10^3/cmm (157-399) 04/23/24 05:42 MPV 10.5 fL (7.4-10.4) H 04/23/24 05:42 Neut % (Auto) 33.0 % 04/23/24 05:42 Lymph % (Auto) 52.8 % 04/23/24 05:42 Rosebud % (Auto) 9.5 % 04/23/24 05:42 Eos % (Auto) 3.8 % 04/23/24 05:42 Baso % (Auto) 0.5 % 04/23/24 05:42 Neut # (Auto) 2.68 10^3/uL (1.8-7.7) 04/23/24 05:42 Lymph # (Auto) 4.3 10^3/uL (0.8-4.8) 04/23/24 05:42 Rosebud # (Auto) 0.8 10^3/uL (0.2-0.9) 04/23/24 05:42 Eos # (Auto) 0.3 10^3/uL (0.0-0.8) 04/23/24 05:42 Baso # (Auto) 0.0 10^3/uL (0.0-0.1) 04/23/24 05:42 Nucleated RBC % (auto) 0 % 04/23/24 05:42 Nucleated RBCs # 0.0 /100WBC 04/23/24 05:42 Sodium 141 mmol/L (136-145) 04/23/24 05:42 Potassium 3.9 mmol/L (3.5-5.1) 04/23/24 05:42 Chloride 103 mmol/L (98-107) 04/23/24 05:42 Carbon Dioxide 29 mmol/L (22-29) 04/23/24 05:42 Anion Gap 12.9 (5-19) 04/23/24 05:42 BUN 2 mg/dL (6-20) L 04/23/24 05:42 Creatinine 0.4 mg/dL (0.5-0.9) L 04/23/24 05:42 GFR Calculation 173.4 mL/min (90-130) H 04/23/24 05:42 Glucose 101 mg/dL (65-115) 04/23/24 05:42 POC Glucose 142 mg/dL (70-110) H 04/23/24 11:38 Calculated Osmolality 288 mOsm/kg (285-295) 04/23/24 05:42 Lactic Acid 5.5 mmol/L (0.5-2.2) H* 04/16/24 11:30 Lactic Acid (Sepsis) 4.2 mmol/L (0.5-2.2) H* 04/16/24 14:10 Calcium 8.5 mg/dL (8.5-10.5) 04/23/24 05:42 Phosphorus 1.6 mg/dL (2.5-4.5) L 04/17/24 02:57 Magnesium 1.6 mg/dL (1.7-2.3) L 04/23/24 05:42 Total Bilirubin 0.4 mg/dL (0.15-1.2) 04/23/24 05:42 AST 16 U/L (0-32) 04/23/24 05:42 ALT 11 U/L (0-33) 04/23/24 05:42 Alkaline Phosphatase 185 U/L (35-105) H 04/23/24 05:42 Creatine Kinase 91 U/L (26-192) 04/20/24 04:25 Troponin T Baseline 16 ng/L (0-10) H 04/16/24 08:56 Troponin T 120 Minute 71.40 ng/L (0-10) H 04/16/24 11:30 Delta Troponin T 55.40 ABS# (0-10) H* 04/16/24 11:30 Troponin T Hi Sens 6Hr 148.9 ng/L (0-10) H 04/16/24 14:10 Troponin T Hi Sens 6Hr Delta 132.9 ng/L (0-12) H* 04/16/24 14:10 NT-Pro-B Natriuret Pep 1894 pg/mL (0-125) H 04/16/24 08:56 Total Protein 5.6 g/dL (6.6-8.7) L 04/23/24 05:42 Albumin 2.9 g/dL (3.5-5.2) L 04/23/24 05:42 Globulin 2.7 g/dL (1.3-4.6) 04/23/24 05:42 Triglycerides 132 mg/dL (0-150) 04/16/24 08:56 Lipase 19 U/L (13-60) 04/22/24 04:16 Urine Color Red (Yellow) A 04/20/24 11:52 Urine Appearance Cloudy (CLEAR) A 04/20/24 11:52 Urine pH 8 (5-7) H 04/20/24 11:52 Ur Specific Ralph 1.010 (1.005-1.030) 04/20/24 11:52 Urine Protein Neg (Negative) 04/20/24 11:52 Urine Glucose (UA) 2+ (Normal) H 04/20/24 11:52 Urine Ketones Negative (Negative) 04/20/24 11:52 Urine Blood 3+ (Negative) H 04/20/24 11:52 Urine Nitrate Negative (Negative) 04/20/24 11:52 Urine Bilirubin Neg (Negative) 04/20/24 11:52 Urine Urobilinogen Norm mg/dL (Negative) 04/20/24 11:52 Ur Leukocyte Esterase Negative (Negative) 04/20/24 11:52 Urine RBC 80-100 /hpf (0-2) H 04/20/24 11:52 Urine WBC 10-15 /hpf (0-5) H 04/20/24 11:52 Ur Squamous Epith Cells Rare /hpf (0-5) 04/20/24 11:52 Amorphous Sediment Not Reportable 04/20/24 11:52 Urine Bacteria Trace /hpf (NONE) 04/20/24 11:52 Serum Ketones Negative (Negative) 04/16/24 08:56 C. difficile (PCR) Negative (Negative) 04/22/24 17:20 Coronavirus 229E (PCR) Not detected (NOT DETECT) 04/16/24 07:44 Hepatitis A IgM Ab Non-reactive (Nonreactive) 04/16/24 14:10 Hep Bs Antigen Non-reactive (Nonreactive) 04/16/24 14:10 Hep B Core IgM Ab Non-reactive (Nonreactive) 04/16/24 14:10 Hepatitis C Antibody Non-reactive (Nonreactive) 04/16/24 14:10 SARS-CoV-2 (PCR) Not detected (NOT DETECT) 04/16/24 07:44 Micro: Microbiology 04/20/24 11:52 Urine Culture - Final Urine,Clean Catch A&P Assessment and plan (1) Elevated troponin: Considering the possibility of [id number] myocardial infarction versus Takotsubo syndrome causing the enzyme elevation, in order to further evaluate the coronary status, a myocardial perfusion imaging would be appropriate. This was discussed with the patient's and the patient in detail. (2) HOCM (hypertrophic obstructive cardiomyopathy): History of a gradient of 36 mmHg, based on the previous echocardiogram. Patient seems to be stable with no significant symptoms. (3) Acute pancreatitis: Symptoms slowly improving. Management as per the primary Qualifiers: Acute pancreatitis complication: unspecified Pancreatitis type: u nspecified pancreatitis type Qualified Code(s): K85.90 - Acute pancreatitis without necrosis or infection, unspecified (4) Accelerated hypertension: Patient has intermittent accelerated hypertension. The adrenal tumor could be a contributing factor. Patient is having 24-hour urine collection for metanephrines. The blood pressure seems to be under control at this time. (5) DM2 (diabetes mellitus, type 2): Management as per the primary. Qualifiers: Diabetes mellitus intermediate frame tender insulin use: with correction use Diabetes mellitus complication status: with other specified complication Qualified Code(s): E11.69 - Type 2 diabetes mellitus with other specified complication; Z79.4 - exterminator (current) use of insulin (6) Aortic valve, bicuspid: She seems to have moderate aortic valve stenosis. May not require any specific intervention at this point. Will continue on the current treatment Plan Other problems are History of seizure disorder Anxiety disorder Hypokalemia, currently normokalemic Multiple electrolyte imbalance, fairly corrected at this point Nausea and vomiting, has significant improvement Leukocytosis, back to normal. I discussed in detail with the patient's regarding further management options. We may go ahead and schedule the patient for a myocardial perfusion imaging, to further evaluate her coronary status. Based on the results, further recommendations will be made Attestations 2 Medical Necessity Statement*: My history Coding Level of Care Code 87816 Diagnoses Elevated troponin R79.89 HOCM (hypertrophic obstructive cardiomyopathy) I42.1 Acute pancreatitis, unspecified complication status, unspecified pancreatitis type K85.90 Acute pancreatitis complication: unspecified Pancreatitis type: unspecified pancreatitis type Accelerated hypertension I10 Type 2 diabetes mellitus with other specified complication, with long-term current use of insulin E11.69; Z79.4 Diabetes mellitus intermediate frame tender insulin use: with correction use Diabetes mellitus complication status: with other specified complication Aortic valve, bicuspid Q23.1
[2024-04-23] MEDS: isosorbide mononitrate ER 30 mg Tablet PO (15:12)
[2024-04-23] MEDS: oxyCODONE 5 mg IR Tab/Cap PO ×2 (15:12→20:06)
--- NOTE | 2024-04-23 16:24 | PC.NURSE ---
Provider ordered to stop the 5% dextrose and 1/2NS.
[2024-04-23 16:26] LABS: Glucose Point of Care 94 mg/dL (70-110)
[2024-04-23] MEDS: cloNIDine 0.1 mg/24 hr Patch 1 PATCH TRANSDERMA (17:00)
--- NOTE | 2024-04-23 18:13 | PC.NURSE ---
Nursing staff/SYNTHETIC RESIN OPERATOR staff took manual blood pressures on patient due to machine blood pressures being higher.
[2024-04-23] MEDS: metoclopramide 5 mg/mL SDV 2 mL IVP (21:09)
[2024-04-24] VITALS (17 sets, daily range): BP systolic 98–138; BP diastolic 50–74; PULSE 73–99; RESP 11–26; TEMP 36.1–36.9; O2SAT 94–97
[2024-04-24 00:12] LABS: Glucose Point of Care 127 mg/dL (70-110)
[2024-04-24] MEDS: oxyCODONE 5 mg IR Tab/Cap PO ×5 (00:46→20:44)
[2024-04-24] MEDS: LORazepam 2 mg/mL INJ 1 mL 1 MG IVP ×5 (02:37→23:21)
[2024-04-24] MEDS: enoxaparin 80 mg/0.8 mL Syringe 70 MG SUBCUT ×2 (05:04→15:42)
[2024-04-24 05:42] LABS: Basophils # 0.1 10^3/uL (0.0-0.1); Basophils % 0.5 %; Eosinophils # 0.3 10^3/uL (0.0-0.8); Eosinophils % 3.2 %; Hematocrit 40.4 % (36-47); Lymphocytes # 5.6 10^3/uL (0.8-4.8); Lymphocytes % 60.3 %; Mean Corpuscular HGB Conc 31.2 g/dL (30-55); Mean Corpuscular Hemoglobin 27.6 pg (27-33); Mean Corpuscular Volume 88.4 fl (85-98); Mean Platelet Volume 10.4 fL (7.4-10.4); Monocytes # 0.9 10^3/uL (0.2-0.9); Monocytes % 9.1 %; Neutrophils # 2.47 10^3/uL (1.8-7.7); Neutrophils % 26.7 %; Nucleated Red Blood Cells % 0 %; Platelet Count 314 10^3/cmm (157-399); Red Blood Count 4.57 10^6/uL (3.85-5.65); White Blood Count 9.29 10^3/uL (3.29-11.43)
[2024-04-24 05:58] LABS: HCG, Serum Qual Negative (Negative)
[2024-04-24 06:01] LABS: Glucose Point of Care 96 mg/dL (70-110)
[2024-04-24 06:12] LABS: Alanine Aminotransferase 8 U/L (0-33); Albumin Level 2.9 g/dL (3.5-5.2); Alkaline Phosphatase 176 U/L (35-105); Anion Gap 12.2 (5-19); Aspartate Amino Transferase 19 U/L (0-32); Blood Urea Nitrogen 5 mg/dL (6-20); Calcium 8.7 mg/dL (8.5-10.5); Carbon Dioxide 29 mmol/L (22-29); Chloride 103 mmol/L (98-107); Creatinine Clr Calc Pharmacy 156.5167; Globulin 2.8 g/dL (1.3-4.6); Glomerular Filtration Rate 173.4 mL/min (90-130); Glucose 94 mg/dL (65-115); Osmolality Calculated 287 mOsm/kg (285-295); Potassium 4.2 mmol/L (3.5-5.1); Sodium 140 mmol/L (136-145); Total Bilirubin 0.4 mg/dL (0.15-1.2); Total Protein 5.7 g/dL (6.6-8.7)
[2024-04-24 06:13] LABS: Magnesium 1.9 mg/dL (1.7-2.3)
[2024-04-24 06:14] LABS: Slide Review Slide Review Perform
[2024-04-24] MEDS: tizanidine 4 mg Tablet PO ×3 (06:31→23:21)
--- NOTE | 2024-04-24 07:24 | PC.NURSE ---
Patient at stress test at shift change.
[2024-04-24] MEDS: regadenoson 0.4 Mg/5 ml Syringe IVP (07:35)
[2024-04-24] MEDS: aminophylline 25 mg/mL SDV 10 mL IVP (07:43)
--- NOTE | 2024-04-24 08:17 | PC.NURSE ---
Patient returned to CSU from stress test at 0818.
[2024-04-24] MEDS: fluticasone nasal spray 16gm Btl 2 SPRAY NASAL (08:36)
[2024-04-24] MEDS: levETIRAcetam 500 mg Tablet 1250 MG PO ×2 (08:37→17:18)
[2024-04-24] MEDS: isosorbide mononitrate ER 30 mg Tablet PO (08:37)
[2024-04-24] MEDS: BRIVARACETAM 25 MG 25 EACH PO (08:37)
[2024-04-24] MEDS: morphine ER (12 HR) 30 mg tablet PO ×2 (08:38→20:44)
[2024-04-24] MEDS: clopidogrel 75 mg Tablet PO (08:38)
[2024-04-24] MEDS: insulin glargine 100 units/1 mL 2 UNIT SUBCUT ×2 (08:38→17:22)
[2024-04-24] MEDS: potassium chloride ER 20 mEq Tablet PO (08:38)
[2024-04-24] MEDS: propranolol 20 mg Tablet PO ×3 (08:38→20:43)
[2024-04-24] MEDS: ondansetron 2 mg/ML SDV 2 mL 4 MG IVP ×2 (08:50→15:56)
[2024-04-24 12:22] LABS: Glucose Point of Care 103 mg/dL (70-110)
--- NOTE | 2024-04-24 12:41 | NMCV_ITS ---
NM blaise perf SPECT r/s* [id number] Eleanor Ragland Age: 44 Gender: F : 1980 Exam Date: 04/24/2024 06:34 Ordering Phys: Richard Sequeira MD Technologist: RAHUL Purcell Exam Location: [facility] Indications: CP STRESS TEST Please see separate stress test report in [facility] for full findings IMAGE PROTOCOL Rest/Stress 1 Lexiscan Day Radiopharmaceutical Dose (mCi) Administration Site Administered by Rest: Tc-99m 10.8 IV RAHUL Purcell Sestamibi Stress:Tc-99m 32.7 IV RAHUL Purcell Sestamibi Rest: 24-Apr-2024 60 Discovery 630 Stress: 24-Apr-2024 30 Discovery 630 0.4mg Lexiscan. Supine position only as patient was unable to lay prone. SPECT RESULTS Technical Quality: Good Raw Data Analysis: Breast attenuation Image Corrections: No attenuation or motion correction applied Summed Stress Score: 2 Summed Rest Score: 0 Summed Difference Score: 2 PERFUSION FINDINGS Small area of slightly decreased tracer uptake involving the mid inferolateral and apical lateral regions with significant reversibility, based on the polar plot. With the SPECT imaging, no significant reversibility was noted FUNCTIONAL RESULTS (calculated via Gated SPECT) Stress Image LV EF (%): 64 Stress EDV (mL):74 TID: 1 Stress ESV (mL):27 FUNCTIONAL FINDINGS: Segmental wall motion analysis revealing no gross wall motion abnormalities IMPRESSIONS 1. Myocardial perfusion imaging revealing a small area of slightly decreased tracer uptake involving the mid inferolateral and apical lateral region with significant reversibility suggesting myocardial ischemia in the distribution of the left circumflex artery. However in view of the inconsistency of the SPECT images, the reliability is somewhat questionable. 2. Normal LV ejection fraction of 64%. 3. LV wall motion analysis revealing no gross wall motion abnormalities. 4. Normal LV volume No similar previous studies are available for comparison Dr Дмитрий Brito MD [facility] (Electronically Signed) Final Date: 24 April 2024 09:04 S
--- NOTE | 2024-04-24 12:56 | P.PN_ITS ---
Subjective 2 Subjective: Eleanor still has some abdominal pain. She states that is mainly upper abdomen. No lower abdominal pain. Underwent nuclear stress test today, cardiology is going to visit in regards to results and further actions. is concerned as she is weak, and not eating much. 24-hour urine was completed yesterday and her catheter was removed. No vomiting. Medications: Reviewed: Yes Vitals/I&O/Wt Last Vital Signs Temp 96.9 F L 04/24/24 12:00 Pulse 83 04/24/24 12:00 Resp 12 04/24/24 12:00 BP 102/50 04/24/24 12:00 Pulse Ox 94 04/24/24 12:00 O2 Del Method Room Air 04/24/24 12:00 04/23/24 04/24/24 04/24/24 22:59 06:59 14:59 Intake Total 780 / 1070 720 / 720 Output Total 1150 / 2400 1250 / 3650 Balance -370 / -1330 -1250 / -2580 720 / 720 Weight last 48 hrs Weight 69.853 kg Weight 72.439 kg Physical Exam 2 Narrative: General exam, Pain Neck is supple Cardiovascular regular rate and rhythm Lungs clear Abdomen is soft, subjective tenderness. No rebound. Positive bowel sounds Extremities no cyanosis clubbing or edema Urinary Catheter Management: Preston: Cath Placed During This Visit: yes, but has since been removed by the nurse Reason for Continuing Indwelling Catheter: Accurate Measurement of Urinary Output in Critically Ill Patients Urinary Catheter Date of Insertion: 04/16/24 Urinary Catheter Time of Insertion: 18:58 Date Urinary Catheter Removed: 04/23/24 Time Urinary Catheter Discontinued: 19:00 Data 04/24/24 04:57 04/24/24 04:57 A&P Assessment and plan (1) Hypertensive urgency: Blood pressure is now under better control on current regimen Currently being worked up for possible pheochromocytoma with 24-hour urine. This will take some time to get back and can be followed up by her director life sciences in [place] CT of her abdomen pelvis was done on entry into the hospital, there has been no increase in size since her last CT scan of her adrenal gland. Appreciate cardiology consult. Nuclear stress test with a small area of abnormality. Cardiology is going to review with the patient. Continue clonidine today. Continue Imdur Continue propranolol Essentially resolved (2) Acute pancreatitis: Reviewed lipase, normalized, transaminases normal. Reviewed gallbladder ultrasound, discussed with her and her . Noted hypoechoic lesion in the right lobe of the liver most consistent with focal sparing. Status postcholecystectomy, nondilated CBD, 3 mm. She does state that it took her a while to come around from previous bout of pancreatitis with persistent pain, nausea. Has had poor oral intake. Still with some discomfort, but better. Changed to solids. Encouraged follow-up with gastroenterology given recurrence of pancreatitis. Initial bout was thought to be secondary to a medication, but she has not been on that medicine prior to the current bout. Continue nausea control, pain control With recurrent pancreatitis, discussed with her would benefit from follow-up with gastroenterology to look for any other possible etiology, including possibility of autoimmune disease. Triglyceride level was not elevated Qualifiers: Acute pancreatitis complication: unspecified Pancreatitis type: u nspecified pancreatitis type Qualified Code(s): K85.90 - Acute pancreatitis without necrosis or infection, unspecified (3) Elevated troponin: Nuclear stress test with some abnormality Currently on Lovenox Plavix was added by cardiology Imdur added Cardiology will discuss whether medical treatment, versus angiogram is warranted (4) Nausea and vomiting: Improved (5) Transaminitis: Now resolved. Hepatitis panel negative Gallbladder ultrasound fatty liver (6) Hypomagnesemia: Previously replaced and normal today (7) High anion gap metabolic acidosis: Resolved. Possibly early ketosis on presentation, although serum ketones negative. Monitor blood glucose. Continue insulin. Plan Hematuria: Urine culture negative, Rocephin stopped Diarrhea: C. difficile negative Diabetes: Continue current regimen. Consistent carb full liquid diet Epilepsy: Keppra p.o. Aortic regurgitation, bicuspid aortic valve. Attestations 2 Medical Necessity Statement*: Needs continued hospitalization, for treatment of nausea, advancing diet, delineation of further workup of elevated troponin by cardiology who is deciding between continued medication treatment versus angiogram. Diagnoses Hypertensive urgency I16.0 Acute pancreatitis, unspecified complication status, unspecified pancreatitis type K85.90 Acute pancreatitis complication: unspecified Pancreatitis type: unspecified pancreatitis type Elevated troponin R79.89 Nausea and vomiting R11.2 Transaminitis R74.01 Hypomagnesemia E83.42 High anion gap metabolic acidosis E87.29 Time Spent (min) 21
--- NOTE | 2024-04-24 13:55 | PM.PN ---
Subjective Subjective: The patient is complaining of chest pain intermittently bleeding . It is a dull aching pain on the left side. Intensity is mild to moderate. Has significant improvement of the abdominal pain. No fever or chills. Has occasional nausea. Medications: Medication Review Details: Current Medications Aminophylline (Aminophylline 25 Mg/Ml Sdv 10 Ml) 25 mg IVP Q2M PRN PRN Reason: see dose instructions Stop: 04/25/24 07:18 Last Admin: 04/24/24 07:43 Dose: 25 mg Bisacodyl (Bisacodyl 10 Mg Supp) 10 mg [place] DAILY PRN PRN Reason: CONSTIPATION Clonidine HCl (Clonidine 0.1 Mg/24 Hr Patch) 1 patch TRANSDERMA Q7D [facility] Last Admin: 04/23/24 17:00 Dose: 1 patch Clopidogrel Bisulfate (Clopidogrel 75 Mg Tablet) 75 mg PO DAILY [facility] Last Admin: 04/24/24 08:38 Dose: 75 mg Diphenhydramine HCl (Diphenhydramine 50 Mg Capsule) 50 mg PO ONCE ONE Stop: 04/24/24 13:53 Enoxaparin Sodium (Enoxaparin 80 Mg/0.8 Ml Syringe) 70 mg SUBCUT Q12H [facility] Last Admin: 04/24/24 05:04 Dose: 70 mg Fluticasone Propionate (Fluticasone Nasal [place] 16gm Btl) 2 spray NASAL DAILY [facility] Last Admin: 04/24/24 08:36 Dose: 2 spray Glucagon (Glucagon 1 Mg/Ml Kit 1 Ml) 1 mg IM ONCE PRN; Protocol PRN Reason: Adult Acute Hypoglycemia Nursing Prot. Dextrose (D5w) 500 mls @ 0 mls/hr IV ONCE PRN; Protocol PRN Reason: Adult Acute Hypoglycemia Prot Dextrose (D10w) 125 mls @ 750 mls/hr IV PRN PRN; Protocol PRN Reason: Adult Acute Hypoglycemia Nursing Protocol Dextrose (D10w) 250 mls @ 1,000 mls/hr IV PRN PRN; Protocol PRN Reason: Adult Acute Hypoglycemia Nursing Protocol Sodium Chloride (Sodium Chloride 0.9%) 1,000 mls @ 50 mls/hr IV .Q20H ONE Stop: 04/25/24 09:51 Insulin Glargine (Insulin Glargine 100 Units/1 Ml) 2 unit SUBCUT BID [facility] Last Admin: 04/24/24 08:38 Dose: 2 unit Insulin Human Lispro (Insulin Lispro 100 Unit/1 Ml) 0 unit SUBCUT Q6H [facility]; Protocol Last Admin: 04/24/24 12:21 Dose: Not Given Isosorbide Mononitrate (Isosorbide Mononitrate Er 30 Mg Tablet) 30 mg PO DAILY [facility] Last Admin: 04/24/24 08:37 Dose: 30 mg Labetalol HCl (Labetalol 5 Mg/Ml Sdv 20ml) 10 mg IVP Q3H PRN PRN Reason: HYPERTENSION Last Admin: 04/23/24 02:30 Dose: 10 mg Levetiracetam (Levetiracetam 500 Mg Tablet) 1,250 mg PO BID [facility] Last Admin: 04/24/24 08:37 Dose: 1,250 mg Lorazepam (Lorazepam 2 Mg/Ml Inj 1 Ml) 1 mg IVP Q4H PRN PRN Reason: ANXIETY Last Admin: 04/24/24 11:02 Dose: 1 mg Metoclopramide HCl (Metoclopramide 5 Mg/Ml Sdv 2 Ml) 5 mg IVP Q6H PRN PRN Reason: NAUSEA AND VOMITING Last Admin: 04/23/24 21:09 Dose: 5 mg Morphine Sulfate (Morphine 4 Mg/Ml Sdv 1 Ml) 4 mg IVP Q4H PRN PRN Reason: SEVERE PAIN Last Admin: 04/23/24 05:33 Dose: 4 mg Morphine Sulfate (Morphine Er (12 Hr) 30 Mg Tablet) 30 mg PO Q12H [facility] Last Admin: 04/24/24 08:38 Dose: 30 mg Nitroglycerin (Nitroglycerin 0.4 Mg Sublingual Tablet) 0.4 mg SUBLINGUAL Q5M PRN PRN Reason: CHEST PAIN Stop: 04/25/24 07:18 Non-Formulary Medication (Brivaracetam [Briviact]) 25 mg PO DAILY [facility] Last Admin: 04/24/24 08:37 Dose: 25 mg Ondansetron HCl (Ondansetron 2 Mg/Ml Sdv 2 Ml) 4 mg IVP Q6H PRN PRN Reason: NAUSEA AND VOMITING Last Admin: 04/24/24 08:50 Dose: 4 mg Oxycodone HCl (Oxycodone 5 Mg Ir Tab/Cap) 5 mg PO Q4H PRN PRN Reason: MODERATE PAIN Last Admin: 04/24/24 10:03 Dose: 5 mg Potassium Chloride (Potassium Chloride Er 20 Meq Tablet) 20 meq PO DAILY [facility] Last Admin: 04/24/24 08:38 Dose: 20 meq Propranolol HCl (Propranolol 20 Mg Tablet) 20 mg PO TID [facility] Last Admin: 04/24/24 08:38 Dose: 20 mg Sodium Chloride (Saline Nasal [place] 44ml Btl) 1 spray NASAL PRN PRN PRN Reason: DRYNESS Tizanidine HCl (Tizanidine 4 Mg Tablet) 4 mg PO TID PRN PRN Reason: MUSCLE SPASMS Last Admin: 04/24/24 06:31 Dose: 4 mg Vitals/I&O/Wt Last Vital Signs Temp 96.9 F L 04/24/24 12:00 Pulse 83 04/24/24 12:00 Resp 12 04/24/24 12:00 BP 102/50 04/24/24 12:00 Pulse Ox 94 04/24/24 12:00 O2 Del Method Room Air 04/24/24 12:00 04/23/24 04/24/24 04/24/24 22:59 06:59 14:59 Intake Total 780 / 1070 720 / 720 Output Total 1150 / 2400 1250 / 3650 Balance -370 / -1330 -1250 / -2580 720 / 720 Weight last 48 hrs Weight 154 lb Weight 159 lb 11.2 oz Physical Exam Narrative: GENERAL: The patient is alert and oriented times three. Continues to complain about abdominal pain HEENT: No significant pallor, icterus or lymphadenopathy.Oral cavity: There are no mucous membrane lesions. NECK: Trachea appears to be central. No masses noted. No JVD or thyromegaly appreciated. RESPIRATORY: Chest is symmetrical. No intercostals muscle retraction or any accessory muscle activation. There is no chest wall tenderness. Breath sounds are heard bilaterally. No rales or rhonchi heard. No evidence of any consolidation. BREASTS: Deferred. HEART: The heart sounds are normal. No S3 or S4. No significant murmurs. No pericardial rub ABDOMEN: Minimal tenderness in the left upper quadrant. No organomegaly appreciated. Bowel sounds are normally heard. : Deferred. RECTAL: Deferred. LYMPHATIC: No lymphadenopathy noted in the neck. EXTREMITIES: No edema or cyanosis. MUSCULOSKELETAL: No acute joint deformities or swelling SKIN: There are no significant rashes or ecchymosis NEUROPSYCHIATRIC: Patient is complaining about pain. Appears very uncomfortable, extremely nervous. Urinary Catheter Management: [place]: Cath Placed During This Visit: yes, but has since been removed by the nurse Reason for Continuing Indwelling Catheter: Accurate Measurement of Urinary Output in Critically Ill Patients Urinary Catheter Date of Insertion: 04/16/24 Urinary Catheter Time of Insertion: 18:58 Date Urinary Catheter Removed: 04/23/24 Time Urinary Catheter Discontinued: 19:00 Data 04/25/24 04:57 04/25/24 04:57 Other Labs: Laboratory Last Values WBC 9.29 10^3/uL (3.29-11.43) 04/24/24 04:57 RBC 4.57 10^6/uL (3.85-5.65) 04/24/24 04:57 Hgb 12.60 g/dL (11.27-16.99) 04/24/24 04:57 Hct 40.4 % (36-47) 04/24/24 04:57 MCV 88.4 fl (85-98) 04/24/24 04:57 MCH 27.6 pg (27-33) 04/24/24 04:57 MCHC 31.2 g/dL (30-55) 04/24/24 04:57 RDW 16.0 % (12.1-15.1) H 04/24/24 04:57 Plt Count 314 10^3/cmm (157-399) 04/24/24 04:57 MPV 10.4 fL (7.4-10.4) 04/24/24 04:57 Neut % (Auto) 26.7 % 04/24/24 04:57 Lymph % (Auto) 60.3 % 04/24/24 04:57 [place] % (Auto) 9.1 % 04/24/24 04:57 Eos % (Auto) 3.2 % 04/24/24 04:57 Baso % (Auto) 0.5 % 04/24/24 04:57 Neut # (Auto) 2.47 10^3/uL (1.8-7.7) 04/24/24 04:57 Lymph # (Auto) 5.6 10^3/uL (0.8-4.8) H 04/24/24 04:57 [place] # (Auto) 0.9 10^3/uL (0.2-0.9) 04/24/24 04:57 Eos # (Auto) 0.3 10^3/uL (0.0-0.8) 04/24/24 04:57 Baso # (Auto) 0.1 10^3/uL (0.0-0.1) 04/24/24 04:57 Nucleated RBC % (auto) 0 % 04/24/24 04:57 Nucleated RBCs # 0.0 /100WBC 04/24/24 04:57 Sodium 140 mmol/L (136-145) 04/24/24 04:57 Potassium 4.2 mmol/L (3.5-5.1) 04/24/24 04:57 Chloride 103 mmol/L (98-107) 04/24/24 04:57 Carbon Dioxide 29 mmol/L (22-29) 04/24/24 04:57 Anion Gap 12.2 (5-19) 04/24/24 04:57 BUN 5 mg/dL (6-20) L 04/24/24 04:57 Creatinine 0.4 mg/dL (0.5-0.9) L 04/24/24 04:57 GFR Calculation 173.4 mL/min (90-130) H 04/24/24 04:57 Glucose 94 mg/dL (65-115) 04/24/24 04:57 POC Glucose 103 mg/dL (70-110) 04/24/24 12:05 Calculated Osmolality 287 mOsm/kg (285-295) 04/24/24 04:57 Lactic Acid 5.5 mmol/L (0.5-2.2) H* 04/16/24 11:30 Lactic Acid (Sepsis) 4.2 mmol/L (0.5-2.2) H* 04/16/24 14:10 Calcium 8.7 mg/dL (8.5-10.5) 04/24/24 04:57 Phosphorus 1.6 mg/dL (2.5-4.5) L 04/17/24 02:57 Magnesium 1.9 mg/dL (1.7-2.3) 04/24/24 04:57 Total Bilirubin 0.4 mg/dL (0.15-1.2) 04/24/24 04:57 AST 19 U/L (0-32) 04/24/24 04:57 ALT 8 U/L (0-33) 04/24/24 04:57 Alkaline Phosphatase 176 U/L (35-105) H 04/24/24 04:57 Creatine Kinase 91 U/L (26-192) 04/20/24 04:25 Troponin T Baseline 16 ng/L (0-10) H 04/16/24 08:56 Troponin T 120 Minute 71.40 ng/L (0-10) H 04/16/24 11:30 Delta Troponin T 55.40 ABS# (0-10) H* 04/16/24 11:30 Troponin T Hi Sens 6Hr 148.9 ng/L (0-10) H 04/16/24 14:10 Troponin T Hi Sens 6Hr Delta 132.9 ng/L (0-12) H* 04/16/24 14:10 NT-Pro-B Natriuret Pep 1894 pg/mL (0-125) H 04/16/24 08:56 Total Protein 5.7 g/dL (6.6-8.7) L 04/24/24 04:57 Albumin 2.9 g/dL (3.5-5.2) L 04/24/24 04:57 Globulin 2.8 g/dL (1.3-4.6) 04/24/24 04:57 Triglycerides 132 mg/dL (0-150) 04/16/24 08:56 Lipase 19 U/L (13-60) 04/22/24 04:16 HCG, Qual Negative (Negative) 04/24/24 04:57 Urine Color Red (Yellow) A 04/20/24 11:52 Urine Appearance Cloudy (CLEAR) A 04/20/24 11:52 Urine pH 8 (5-7) H 04/20/24 11:52 Ur Specific [place] 1.010 (1.005-1.030) 04/20/24 11:52 Urine Protein Neg (Negative) 04/20/24 11:52 Urine Glucose (UA) 2+ (Normal) H 04/20/24 11:52 Urine Ketones Negative (Negative) 04/20/24 11:52 Urine Blood 3+ (Negative) H 04/20/24 11:52 Urine Nitrate Negative (Negative) 04/20/24 11:52 Urine Bilirubin Neg (Negative) 04/20/24 11:52 Urine Urobilinogen Norm mg/dL (Negative) 04/20/24 11:52 Ur Leukocyte Esterase Negative (Negative) 04/20/24 11:52 Urine RBC 80-100 /hpf (0-2) H 04/20/24 11:52 Urine WBC 10-15 /hpf (0-5) H 04/20/24 11:52 Ur Squamous Epith Cells Rare /hpf (0-5) 04/20/24 11:52 Amorphous Sediment Not Reportable 04/20/24 11:52 Urine Bacteria Trace /hpf (NONE) 04/20/24 11:52 Serum Ketones Negative (Negative) 04/16/24 08:56 C. difficile (PCR) Negative (Negative) 04/22/24 17:20 Coronavirus 229E (PCR) Not detected (NOT DETECT) 04/16/24 07:44 Hepatitis A IgM Ab Non-reactive (Nonreactive) 04/16/24 14:10 Hep Bs Antigen Non-reactive (Nonreactive) 04/16/24 14:10 Hep B Core IgM Ab Non-reactive (Nonreactive) 04/16/24 14:10 Hepatitis C Antibody Non-reactive (Nonreactive) 04/16/24 14:10 SARS-CoV-2 (PCR) Not detected (NOT DETECT) 04/16/24 07:44 A&P Assessment and plan (1) Elevated troponin: Patient underwent the Myocardial perfusion imaging today. She was found to have an area of reversible defect in the mid inferolateral and apical lateral region suggestive of ischemia in the distribution of the left circumflex artery. In view of her ongoing chest pains, in order to further evaluate her coronary status, a cardiac catheterization would be appropriate. Risks and benefits were discussed. The risk of bleeding, hematoma, vascular injury, myocardial infarction, myocardial perforation, malignant cardiac arrhythmias ,CVA, renal failure and other concomitant complications were explained in detail. Patient and her understood this well and consented to proceed. (2) HOCM (hypertrophic obstructive cardiomyopathy): History of a resting gradient of 36 mmHg, based on the previous echocardiogram. Patient seems to be stable with no significant symptoms. (3) Acute pancreatitis: Symptoms slowly improving. Management as per the primary Qualifiers: Acute pancreatitis complication: unspecified Pancreatitis type: unspecified pancreatitis type Qualified Code(s): K85.90 - Acute pancreatitis without necrosis or infection, unspecified (4) Accelerated hypertension: Currently the blood pressure seems to be stable. Patient has intermittent accelerated hypertension. The adrenal tumor could be a contributing factor. Patient is having 24-hour urine collection for metanephrines. The blood pressure seems to be under control at this time. (5) DM2 (diabetes mellitus, type 2): Management as per the primary. 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 May not require any specific intervention at this point. Will continue on the current treatment Plan Other problems are History of seizure disorder Anxiety disorder Hypokalemia, currently normokalemic Multiple electrolyte imbalance, fairly corrected at this point Nausea and vomiting, has significant improvement Leukocytosis, back to normal. We may go ahead and do schedule the patient for a cardiac catheterization tomorrow. Based on the results, further recommendations will be made Attestations Medical Necessity Statement*: Patient requires continued hospital stay for close monitoring and further management Coding Level of Care Code 96821 Diagnoses Elevated troponin R79.89 HOCM (hypertrophic obstructive cardiomyopathy) I42.1 Acute pancreatitis, unspecified complication status, unspecified pancreatitis type K85.90 Acute pancreatitis complication: unspecified Pancreatitis type: unspecified pancreatitis type Accelerated hypertension I10 Type 2 diabetes mellitus with other specified complication, with long-term current use of insulin E11.69; Z79.4 Diabetes mellitus complication status: with other specified complication Diabetes mellitus [employer] insulin use: with [employer] use Aortic valve, bicuspid Q23.1
[2024-04-24 17:22] LABS: Glucose Point of Care 130 mg/dL (70-110)
[2024-04-24 23:36] LABS: Glucose Point of Care 126 mg/dL (70-110)
[2024-04-25] VITALS (31 sets, daily range): BP systolic 77–128; BP diastolic 40–91; PULSE 76–959; RESP 12–29; TEMP 36.6–37.4; O2SAT 88–96
[2024-04-25] MEDS: oxyCODONE 5 mg IR Tab/Cap PO ×3 (04:10→20:53)
[2024-04-25 05:38] LABS: Basophils # 0.1 10^3/uL (0.0-0.1); Basophils % 0.8 %; Eosinophils # 0.2 10^3/uL (0.0-0.8); Hematocrit 35.8 % (36-47); Lymphocytes # 5.8 10^3/uL (0.8-4.8); Lymphocytes % 68.5 %; Mean Corpuscular HGB Conc 31.3 g/dL (30-55); Mean Corpuscular Hemoglobin 27.9 pg (27-33); Mean Corpuscular Volume 89.3 fl (85-98); Mean Platelet Volume 10.4 fL (7.4-10.4); Monocytes # 0.9 10^3/uL (0.2-0.9); Monocytes % 10.3 %; Neutrophils # 1.54 10^3/uL (1.8-7.7); Neutrophils % 18.2 %; Nucleated Red Blood Cells % 0 %; Platelet Count 291 10^3/cmm (157-399); Red Blood Count 4.01 10^6/uL (3.85-5.65); Red Cell Distribution Width 15.9 % (12.1-15.1); White Blood Count 8.51 10^3/uL (3.29-11.43)
[2024-04-25] MEDS: sodium chloride 0.9% 1,000 ML 50 ML IV ×2 (05:48→14:33)
[2024-04-25] MEDS: diphenhydrAMINE 50 mg Capsule PO (05:48)
[2024-04-25 05:53] LABS: Alanine Aminotransferase 7 U/L (0-33); Albumin Level 2.7 g/dL (3.5-5.2); Alkaline Phosphatase 140 U/L (35-105); Aspartate Amino Transferase 25 U/L (0-32); Blood Urea Nitrogen 7 mg/dL (6-20); Calcium 8.4 mg/dL (8.5-10.5); Carbon Dioxide 27 mmol/L (22-29); Chloride 106 mmol/L (98-107); Creatinine Clr Calc Pharmacy 89.4381; Globulin 2.7 g/dL (1.3-4.6); Glomerular Filtration Rate 90.9 mL/min (90-130); Glucose 161 mg/dL (65-115); Osmolality Calculated 295 mOsm/kg (285-295); Sodium 142 mmol/L (136-145); Total Bilirubin 0.4 mg/dL (0.15-1.2); Total Protein 5.4 g/dL (6.6-8.7)
[2024-04-25 06:12] LABS: Glucose Point of Care 117 mg/dL (70-110)
[2024-04-25 06:13] LABS: Slide Review Slide Review Perform
[2024-04-25] MEDS: LORazepam 2 mg/mL INJ 1 mL 1 MG IVP ×4 (06:43→23:38)
--- NOTE | 2024-04-25 06:52 | PC.NURSE ---
Patient left for [employer] at [phone].
--- NOTE | 2024-04-25 07:13 | W.PM.OPSUD ---
Surgery/Procedure H&P Update DATE OF PROCEDURE: April 25, 2024 DATE H&P PERFORMED: 04/16/24 H&P UPDATE INFORMATION: I have reviewed H&P completed within last 30 days, I have examined patient prior to procedure and No changes to prior documentation PREOP DIAGNOSIS: ashd PRIMARY INDICATION FOR PROCEDURE: NSTEMI/abnormal echo/abnormal Myocardial perfusion imaging PLANNED PROCEDURE: Operation Date: 04/25/24 07:00 Proposed Procedures p Cardiac Catheterization c Poss PCI(Not Applicable) - Дмитрий Brito MD PATIENT REASSESSED PRIOR TO SEDATION, WITH NO CHANGE NOTED: Yes PHYSICAL EXAM: alert, oriented x 3, clear to auscultation bilaterally and regular rate & rhythm AIRWAY EVAL/ANESTHESIA PLAN: normal airway, see other exam findings, ASA III, Monitored Anesthesia, Local Anesthesia, Risks, benefits & alternatives of sedation and/or procedure discussed and Patient agrees to continue as planned
--- NOTE | 2024-04-25 07:15 | PM.PN ---
Subjective Subjective: Patient continues to have episodes of chest pain. Her symptoms are somewhat difficult to discern because of the history of generalized aches and pains/pancreatitis and other comorbidities. Medications: Medication Review Details: Current Medications Aminophylline (Aminophylline 25 Mg/Ml Sdv 10 Ml) 25 mg IVP Q2M PRN PRN Reason: see dose instructions Stop: 04/25/24 07:18 Last Admin: 04/24/24 07:43 Dose: 25 mg Bisacodyl (Bisacodyl 10 Mg Supp) 10 mg [place] DAILY PRN PRN Reason: CONSTIPATION Clonidine HCl (Clonidine 0.1 Mg/24 Hr Patch) 1 patch TRANSDERMA Q7D [facility] Last Admin: 04/23/24 17:00 Dose: 1 patch Clopidogrel Bisulfate (Clopidogrel 75 Mg Tablet) 75 mg PO DAILY [facility] Last Admin: 04/24/24 08:38 Dose: 75 mg Enoxaparin Sodium (Enoxaparin 80 Mg/0.8 Ml Syringe) 70 mg SUBCUT Q12H [facility] Last Admin: 04/25/24 04:10 Dose: Not Given Fluticasone Propionate (Fluticasone Nasal [place] 16gm Btl) 2 spray NASAL DAILY [facility] Last Admin: 04/24/24 08:36 Dose: 2 spray Glucagon (Glucagon 1 Mg/Ml Kit 1 Ml) 1 mg IM ONCE PRN; Protocol PRN Reason: Adult Acute Hypoglycemia Nursing Prot. Dextrose (D5w) 500 mls @ 0 mls/hr IV ONCE PRN; Protocol PRN Reason: Adult Acute Hypoglycemia Prot Dextrose (D10w) 125 mls @ 750 mls/hr IV PRN PRN; Protocol PRN Reason: Adult Acute Hypoglycemia Nursing Protocol Dextrose (D10w) 250 mls @ 1,000 mls/hr IV PRN PRN; Protocol PRN Reason: Adult Acute Hypoglycemia Nursing Protocol Sodium Chloride (Sodium Chloride 0.9%) 1,000 mls @ 50 mls/hr IV .Q20H ONE Stop: 04/26/24 01:59 Last Admin: 04/25/24 05:48 Dose: 50 mls/hr Insulin Glargine (Insulin Glargine 100 Units/1 Ml) 2 unit SUBCUT BID [facility] Last Admin: 04/24/24 17:22 Dose: 2 unit Insulin Human Lispro (Insulin Lispro 100 Unit/1 Ml) 0 unit SUBCUT Q6H [facility]; Protocol Last Admin: 04/25/24 06:03 Dose: Not Given Isosorbide Mononitrate (Isosorbide Mononitrate Er 30 Mg Tablet) 30 mg PO DAILY [facility] Last Admin: 04/24/24 08:37 Dose: 30 mg Labetalol HCl (Labetalol 5 Mg/Ml Sdv 20ml) 10 mg IVP Q3H PRN PRN Reason: HYPERTENSION Last Admin: 04/23/24 02:30 Dose: 10 mg Levetiracetam (Levetiracetam 500 Mg Tablet) 1,250 mg PO BID [facility] Last Admin: 04/24/24 17:18 Dose: 1,250 mg Lorazepam (Lorazepam 2 Mg/Ml Inj 1 Ml) 1 mg IVP Q4H PRN PRN Reason: ANXIETY Last Admin: 04/25/24 06:43 Dose: 1 mg Metoclopramide HCl (Metoclopramide 5 Mg/Ml Sdv 2 Ml) 5 mg IVP Q6H PRN PRN Reason: NAUSEA AND VOMITING Last Admin: 04/23/24 21:09 Dose: 5 mg Morphine Sulfate (Morphine 4 Mg/Ml Sdv 1 Ml) 4 mg IVP Q4H PRN PRN Reason: SEVERE PAIN Last Admin: 04/23/24 05:33 Dose: 4 mg Morphine Sulfate (Morphine Er (12 Hr) 30 Mg Tablet) 30 mg PO Q12H [facility] Last Admin: 04/24/24 20:44 Dose: 30 mg Nitroglycerin (Nitroglycerin 0.4 Mg Sublingual Tablet) 0.4 mg SUBLINGUAL Q5M PRN PRN Reason: CHEST PAIN Stop: 04/25/24 07:18 Non-Formulary Medication (Brivaracetam [Briviact]) 25 mg PO DAILY [facility] Last Admin: 04/24/24 08:37 Dose: 25 mg Ondansetron HCl (Ondansetron 2 Mg/Ml Sdv 2 Ml) 4 mg IVP Q6H PRN PRN Reason: NAUSEA AND VOMITING Last Admin: 04/24/24 15:56 Dose: 4 mg Oxycodone HCl (Oxycodone 5 Mg Ir Tab/Cap) 5 mg PO Q4H PRN PRN Reason: MODERATE PAIN Last Admin: 04/25/24 04:10 Dose: 5 mg Potassium Chloride (Potassium Chloride Er 20 Meq Tablet) 20 meq PO DAILY [facility] Last Admin: 04/24/24 08:38 Dose: 20 meq Propranolol HCl (Propranolol 20 Mg Tablet) 20 mg PO TID [facility] Last Admin: 04/24/24 20:43 Dose: 20 mg Sodium Chloride (Saline Nasal [place] 44ml Btl) 1 spray NASAL PRN PRN PRN Reason: DRYNESS Tizanidine HCl (Tizanidine 4 Mg Tablet) 4 mg PO TID PRN PRN Reason: MUSCLE SPASMS Last Admin: 04/24/24 23:21 Dose: 4 mg Vitals/I&O/Wt Last Vital Signs Temp 98.1 F 04/25/24 04:00 Pulse 76 04/25/24 06:00 Resp 14 04/25/24 04:10 BP 106/76 04/25/24 04:00 Pulse Ox 97 04/24/24 16:00 O2 Del Method Room Air 04/24/24 16:00 04/24/24 04/25/24 04/25/24 22:59 06:59 14:59 Output Total 150 / 150 300 / 450 Balance -150 / 570 -300 / 270 Weight last 48 hrs Weight 154 lb Weight 154 lb Physical Exam Narrative: GENERAL: The patient is alert and oriented times three. Continues to complain about abdominal pain HEENT: No significant pallor, icterus or lymphadenopathy.Oral cavity: There are no mucous membrane lesions. NECK: Trachea appears to be central. No masses noted. No JVD or thyromegaly appreciated. RESPIRATORY: Chest is symmetrical. No intercostals muscle retraction or any accessory muscle activation. There is no chest wall tenderness. Breath sounds are heard bilaterally. No rales or rhonchi heard. No evidence of any consolidation. BREASTS: Deferred. HEART: The heart sounds are normal. No S3 or S4. No significant murmurs. No pericardial rub ABDOMEN: Minimal tenderness in the left upper quadrant. No organomegaly appreciated. Bowel sounds are normally heard. : Deferred. RECTAL: Deferred. LYMPHATIC: No lymphadenopathy noted in the neck. EXTREMITIES: No edema or cyanosis. MUSCULOSKELETAL: No acute joint deformities or swelling SKIN: There are no significant rashes or ecchymosis NEUROPSYCHIATRIC: Patient is complaining about pain. Appears very uncomfortable, extremely nervous. Urinary Catheter Management: Preston: Cath Placed During This Visit: yes, but has since been removed by the nurse Reason for Continuing Indwelling Catheter: Accurate Measurement of Urinary Output in Critically Ill Patients Urinary Catheter Date of Insertion: 04/16/24 Urinary Catheter Time of Insertion: 18:58 Date Urinary Catheter Removed: 04/23/24 Time Urinary Catheter Discontinued: 19:00 Data 04/25/24 14:10 04/25/24 04:57 Other Labs: Laboratory Last Values WBC 8.51 10^3/uL (3.29-11.43) 04/25/24 04:57 RBC 4.01 10^6/uL (3.85-5.65) 04/25/24 04:57 Hgb 11.20 g/dL (11.27-16.99) L 04/25/24 04:57 Hct 35.8 % (36-47) L 04/25/24 04:57 MCV 89.3 fl (85-98) 04/25/24 04:57 MCH 27.9 pg (27-33) 04/25/24 04:57 MCHC 31.3 g/dL (30-55) 04/25/24 04:57 RDW 15.9 % (12.1-15.1) H 04/25/24 04:57 Plt Count 291 10^3/cmm (157-399) 04/25/24 04:57 MPV 10.4 fL (7.4-10.4) 04/25/24 04:57 Neut % (Auto) 18.2 % 04/25/24 04:57 Lymph % (Auto) 68.5 % 04/25/24 04:57 [place] % (Auto) 10.3 % 04/25/24 04:57 Eos % (Auto) 2.0 % 04/25/24 04:57 Baso % (Auto) 0.8 % 04/25/24 04:57 Neut # (Auto) 1.54 10^3/uL (1.8-7.7) L 04/25/24 04:57 Lymph # (Auto) 5.8 10^3/uL (0.8-4.8) H 04/25/24 04:57 [place] # (Auto) 0.9 10^3/uL (0.2-0.9) 04/25/24 04:57 Eos # (Auto) 0.2 10^3/uL (0.0-0.8) 04/25/24 04:57 Baso # (Auto) 0.1 10^3/uL (0.0-0.1) 04/25/24 04:57 Nucleated RBC % (auto) 0 % 04/25/24 04:57 Nucleated RBCs # 0.0 /100WBC 04/25/24 04:57 Sodium 142 mmol/L (136-145) 04/25/24 04:57 Potassium 4.0 mmol/L (3.5-5.1) 04/25/24 04:57 Chloride 106 mmol/L (98-107) 04/25/24 04:57 Carbon Dioxide 27 mmol/L (22-29) 04/25/24 04:57 Anion Gap 13.0 (5-19) 04/25/24 04:57 BUN 7 mg/dL (6-20) 04/25/24 04:57 Creatinine 0.7 mg/dL (0.5-0.9) 04/25/24 04:57 GFR Calculation 90.9 mL/min (90-130) 04/25/24 04:57 Glucose 161 mg/dL (65-115) H 04/25/24 04:57 POC Glucose 117 mg/dL (70-110) H 04/25/24 05:54 Calculated Osmolality 295 mOsm/kg (285-295) 04/25/24 04:57 Lactic Acid 5.5 mmol/L (0.5-2.2) H* 04/16/24 11:30 Lactic Acid (Sepsis) 4.2 mmol/L (0.5-2.2) H* 04/16/24 14:10 Calcium 8.4 mg/dL (8.5-10.5) L 04/25/24 04:57 Phosphorus 1.6 mg/dL (2.5-4.5) L 04/17/24 02:57 Magnesium 1.9 mg/dL (1.7-2.3) 04/24/24 04:57 Total Bilirubin 0.4 mg/dL (0.15-1.2) 04/25/24 04:57 AST 25 U/L (0-32) 04/25/24 04:57 ALT 7 U/L (0-33) 04/25/24 04:57 Alkaline Phosphatase 140 U/L (35-105) H 04/25/24 04:57 Creatine Kinase 91 U/L (26-192) 04/20/24 04:25 Troponin T Baseline 16 ng/L (0-10) H 04/16/24 08:56 Troponin T 120 Minute 71.40 ng/L (0-10) H 04/16/24 11:30 Delta Troponin T 55.40 ABS# (0-10) H* 04/16/24 11:30 Troponin T Hi Sens 6Hr 148.9 ng/L (0-10) H 04/16/24 14:10 Troponin T Hi Sens 6Hr Delta 132.9 ng/L (0-12) H* 04/16/24 14:10 NT-Pro-B Natriuret Pep 1894 pg/mL (0-125) H 04/16/24 08:56 Total Protein 5.4 g/dL (6.6-8.7) L 04/25/24 04:57 Albumin 2.7 g/dL (3.5-5.2) L 04/25/24 04:57 Globulin 2.7 g/dL (1.3-4.6) 04/25/24 04:57 Triglycerides 132 mg/dL (0-150) 04/16/24 08:56 Lipase 19 U/L (13-60) 04/22/24 04:16 HCG, Qual Negative (Negative) 04/24/24 04:57 Urine Color Red (Yellow) A 04/20/24 11:52 Urine Appearance Cloudy (CLEAR) A 04/20/24 11:52 Urine pH 8 (5-7) H 04/20/24 11:52 Ur Specific [place] 1.010 (1.005-1.030) 04/20/24 11:52 Urine Protein Neg (Negative) 04/20/24 11:52 Urine Glucose (UA) 2+ (Normal) H 04/20/24 11:52 Urine Ketones Negative (Negative) 04/20/24 11:52 Urine Blood 3+ (Negative) H 04/20/24 11:52 Urine Nitrate Negative (Negative) 04/20/24 11:52 Urine Bilirubin Neg (Negative) 04/20/24 11:52 Urine Urobilinogen Norm mg/dL (Negative) 04/20/24 11:52 Ur Leukocyte Esterase Negative (Negative) 04/20/24 11:52 Urine RBC 80-100 /hpf (0-2) H 04/20/24 11:52 Urine WBC 10-15 /hpf (0-5) H 04/20/24 11:52 Ur Squamous Epith Cells Rare /hpf (0-5) 04/20/24 11:52 Amorphous Sediment Not Reportable 04/20/24 11:52 Urine Bacteria Trace /hpf (NONE) 04/20/24 11:52 Serum Ketones Negative (Negative) 04/16/24 08:56 C. difficile (PCR) Negative (Negative) 04/22/24 17:20 Coronavirus 229E (PCR) Not detected (NOT DETECT) 04/16/24 07:44 Hepatitis A IgM Ab Non-reactive (Nonreactive) 04/16/24 14:10 Hep Bs Antigen Non-reactive (Nonreactive) 04/16/24 14:10 Hep B Core IgM Ab Non-reactive (Nonreactive) 04/16/24 14:10 Hepatitis C Antibody Non-reactive (Nonreactive) 04/16/24 14:10 SARS-CoV-2 (PCR) Not detected (NOT DETECT) 04/16/24 07:44 A&P Assessment and plan (1) Elevated troponin: Patient underwent the Myocardial perfusion imaging today. She was found to have an area of reversible defect in the mid inferolateral and apical lateral region suggestive of ischemia in the distribution of the left circumflex artery. In view of her ongoing chest pains, in order to further evaluate her coronary status, a cardiac catheterization would be appropriate. Risks and benefits were discussed. The risk of bleeding, hematoma, vascular injury, myocardial infarction, myocardial perforation, malignant cardiac arrhythmias ,CVA, renal failure and other concomitant complications were explained in detail. Patient and her understood this well and consented to proceed. Scheduled for angiogram today (2) HOCM (hypertrophic obstructive cardiomyopathy): History of a resting gradient of 36 mmHg, based on the previous echocardiogram. Patient seems to be stable with no significant symptoms. (3) Acute pancreatitis: Symptoms slowly improving. Management as per the primary Qualifiers: Acute pancreatitis complication: unspecified Pancreatitis type: unspecified pancreatitis type Qualified Code(s): K85.90 - Acute pancreatitis without necrosis or infection, unspecified (4) Accelerated hypertension: Currently the blood pressure seems to be stable. Patient has intermittent accelerated hypertension. The adrenal tumor could be a contributing factor. Patient is having 24-hour urine collection for metanephrines. The blood pressure seems to be under control at this time. (5) DM2 (diabetes mellitus, type 2): Management as per the primary. 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 May not require any specific intervention at this point. Will continue on the current treatment Plan Other problems are History of seizure disorder Anxiety disorder Hypokalemia, currently normokalemic Multiple electrolyte imbalance, fairly corrected at this point Nausea and vomiting, has significant improvement Leukocytosis, back to normal. Cardiac catheterization today. Patient angiogram findings, further recommendations will be made Attestations Medical Necessity Statement*: Patient requires continued hospital stay for close monitoring and further management Coding Level of Care Code 54923 Diagnoses Elevated troponin R79.89 HOCM (hypertrophic obstructive cardiomyopathy) I42.1 Acute pancreatitis, unspecified complication status, unspecified pancreatitis type K85.90 Acute pancreatitis complication: unspecified Pancreatitis type: unspecified pancreatitis type Accelerated hypertension I10 Type 2 diabetes mellitus with other specified complication, with long-term current use of insulin E11.69; Z79.4 Diabetes mellitus complication status: with other specified complication 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
--- NOTE | 2024-04-25 09:08 | P.MISC_ITS ---
Miscellaneous Note Purpose of Documentation: Brief procedure note Note: After diagnostic cardiac catheterization images, interventional cardiology was consulted. She has small sized left circumflex artery with significant stenosis , likely culprit for troponin elevation. However because of small size of vessel, medical therapy is indicated. Patient had mild to moderate mid RCA and PDA lesions. Plan was to perform IFR. However with engagement of guide catheter patient had severe coronary vasospasm. iFR wire could not be normalized even after multiple attempts. Readings were not reliable as waveforms were abnormal secondary to coronary vasospasm. We disengaged the guide and engaged the vessel again with diagnostic 5 [place] catheter. Intracoronary nitroglycerin relieved the spasm. EKG changes also resolved with spasm. Patient's chest pain secondary to coronary vasospasm. Medical therapy recommended.
[2024-04-25] MEDS: nitroglycerin drip 50 MG/250 ML PREMIX IV (09:30)
--- NOTE | 2024-04-25 09:36 | PC.NURSE ---
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
[2024-04-25] MEDS: levETIRAcetam 500 mg Tablet 1250 MG PO ×2 (09:42→17:26)
[2024-04-25] MEDS: BRIVARACETAM 25 MG 25 EACH PO (09:43)
[2024-04-25] MEDS: potassium chloride ER 20 mEq Tablet PO (09:43)
[2024-04-25] MEDS: clopidogrel 75 mg Tablet PO (09:43)
[2024-04-25] MEDS: morphine ER (12 HR) 30 mg tablet PO ×2 (09:43→19:51)
[2024-04-25] MEDS: fluticasone nasal spray 16gm Btl 2 SPRAY NASAL (09:43)
[2024-04-25] MEDS: isosorbide mononitrate ER 30 mg Tablet PO (09:44)
--- NOTE | 2024-04-25 11:24 | P.PN_ITS ---
Subjective 2 Subjective: Eleanor is directly postoperative her angiogram. No intervention was needed. She did have some spasm, and discomfort after the procedure was started on a nitroglycerin drip. Medications: Reviewed: Yes Vitals/I&O/Wt Last Vital Signs Temp 99.2 F 04/25/24 09:23 Pulse 101 H 04/25/24 11:17 Resp 14 04/25/24 10:17 BP 115/72 04/25/24 11:17 Pulse Ox 94 04/25/24 10:17 O2 Del Method Room Air 04/25/24 10:17 04/24/24 04/25/24 04/25/24 22:59 06:59 14:59 Output Total 150 / 150 300 / 450 Balance -150 / 570 -300 / 270 Weight last 48 hrs Weight 69.853 kg Weight 69.853 kg Physical Exam 2 Narrative: General exam, Pain Neck is supple Cardiovascular regular rate and rhythm Lungs clear Abdomen is soft, subjective tenderness. No rebound. Positive bowel sounds Extremities no cyanosis clubbing or edema. Sheath is noted in the right groin without significant hematoma Urinary Catheter Management: Preston: Cath Placed During This Visit: yes, but has since been removed by the nurse Reason for Continuing Indwelling Catheter: Accurate Measurement of Urinary Output in Critically Ill Patients Urinary Catheter Date of Insertion: 04/16/24 Urinary Catheter Time of Insertion: 18:58 Date Urinary Catheter Removed: 04/23/24 Time Urinary Catheter Discontinued: 19:00 Data 04/25/24 04:57 04/25/24 04:57 A&P Assessment and plan (1) Hypertensive urgency: Blood pressure is now under better control on current regimen Currently being worked up for possible pheochromocytoma with 24-hour urine. This will take some time to get back and can be followed up by her interpreter for the deaf in [place] CT of her abdomen pelvis was done on entry into the hospital, there has been no increase in size since her last CT scan of her adrenal gland. Appreciate cardiology consult. Nuclear stress test with a small area of abnormality. Angiogram occurred today. Demonstrated some coronary disease but not flow relevant. Had spasm following the procedure and was started on a nitroglycerin drip. Continue clonidine today. Continue Imdur Continue propranolol Essentially resolved (2) Acute pancreatitis: Reviewed lipase, normalized, transaminases normal. Reviewed gallbladder ultrasound, discussed with her and her . Noted hypoechoic lesion in the right lobe of the liver most consistent with focal sparing. Status postcholecystectomy, nondilated CBD, 3 mm. She does state that it took her a while to come around from previous bout of pancreatitis with persistent pain, nausea. Has had poor oral intake. Still with some discomfort, but better. Changed to solids. Encouraged follow-up with gastroenterology given recurrence of pancreatitis. Initial bout was thought to be secondary to a medication, but she has not been on that medicine prior to the current bout. Continue nausea control, pain control With recurrent pancreatitis, discussed with her would benefit from follow-up with gastroenterology to look for any other possible etiology, including possibility of autoimmune disease. Triglyceride level was not elevated Qualifiers: Acute pancreatitis complication: unspecified Pancreatitis type: u nspecified pancreatitis type Qualified Code(s): K85.90 - Acute pancreatitis without necrosis or infection, unspecified (3) Elevated troponin: Nuclear stress test with some abnormality Currently on Lovenox Plavix was added by cardiology Imdur added See notations regarding angiogram above Initiate statin Continue beta-bimal (4) Nausea and vomiting: Improved (5) Transaminitis: Now resolved. Hepatitis panel negative Gallbladder ultrasound fatty liver (6) Hypomagnesemia: Previously replaced and normal today (7) High anion gap metabolic acidosis: Resolved. Possibly early ketosis on presentation, although serum ketones negative. Monitor blood glucose. Continue insulin. Plan Hematuria: Urine culture negative, Rocephin stopped Diarrhea: C. difficile negative Diabetes: Continue current regimen. Consistent carb full liquid diet Epilepsy: Keppra p.o. Aortic regurgitation, bicuspid aortic valve. Attestations 2 Medical Necessity Statement*: Needs continued hospitalization for close follow-up following angiogram in this patient with coronary spasm requiring nitroglycerin drip. Possible discharge tomorrow. Diagnoses Hypertensive urgency I16.0 Acute pancreatitis, unspecified complication status, unspecified pancreatitis type K85.90 Acute pancreatitis complication: unspecified Pancreatitis type: unspecified pancreatitis type Elevated troponin R79.89 Nausea and vomiting R11.2 Transaminitis R74.01 Hypomagnesemia E83.42 High anion gap metabolic acidosis E87.29 Time Spent (min) 26
[2024-04-25 11:34] LABS: Glucose Point of Care 124 mg/dL (70-110)
--- NOTE | 2024-04-25 13:03 | PC.SOCIAL ---
IMM Update Pg 2 of IMM Updated and reviewed with patient, who verbalized understanding. Copy provided.
[2024-04-25 13:42] LABS: Partial Thromboplastin Time 27.7 SECONDS (23.9-36.7)
--- NOTE | 2024-04-25 13:50 | PC.NURSE ---
Stopped nitro drip due to soft blood pressures.
[2024-04-25] MEDS: sodium chloride 0.9% 500 ML 999 ML IV (14:00)
--- NOTE | 2024-04-25 14:17 | PC.NURSE ---
Patients blood pressure 78/40 manual. Product Specialist notified, received orders to give 500cc NS bolus, obtain 12lead, wait to remove sheath. Re assess blood pressures after bolus. Hospitalist orders: stat H&H
--- NOTE | 2024-04-25 14:18 | ECG_ITS ---
[facility] Test Date: 2024-04-25 Pat Name: Eleanor Ragland Department: Room: 106 Gender: Female Yarrow Gatherer: : 1980 Requested By: Richard Cantu Order Number: [id number] Dianna MD: Rahul Zambrano M.D. Measurements Intervals [place] Rate: 97 P: 58 VA: 115 QRS: 11 QRSD: 88 T: 231 QT: 383 QTc: 487 Interpretive Statements SINUS RHYTHM WITH SHORT VA INTERVAL POSSIBLE LEFT ATRIAL ENLARGEMENT [-0.1mV P-WAVE IN V1/V2] POSSIBLE INFERIOR MYOCARDIAL INFARCTION , OF INDETERMINATE AGE [30 ms Q WAVE IN II/aVF] MARKED T-WAVE ABNORMALITY, CONSIDER ANTEROLATERAL ISCHEMIA [-0.5+ mV T-WAVE IN I/aVL/V3-V6] Compared to ECG 04/17/2024 05:52:33 Short VA interval now present T-wave abnormality now present Possible ischemia now present Sinus tachycardia no longer present Left ventricular hypertrophy no longer present Myocardial infarct finding still present Electronically Signed On 04-25-2024 15:56:26 CDT by Rahul Zambrano M.D. [email or web address]
--- NOTE | 2024-04-25 14:28 | PC.NURSE ---
Removed patients clonidine patch at 1425.
--- NOTE | 2024-04-25 14:46 | USCV_ITS ---
Eleanor Ragland Age: 44 Gender: F : 1980 Exam Date: 04/25/2024 16:04 Ordering Phys: Rahul Zambrano M.D ([email or web address]) Technologist: CT Exam Location: [facility] [place] Indication: cp BP: / HR: Rhythm: Sinus Technical Quality: Adequate MEASUREMENTS (Male / Female) Normal Values 2D ECHO LVOT Diameter 2.1 cm LV Ejection Fraction MOD 4C 74.9 % LV Ejection Fraction MOD 2C 72.3 % LV Ejection Fraction 2C AL 73.5 % LA Diameter 3.7 cm RA Systolic Volume 4C AL 14.9 ml RA Systolic Volume 4C MOD 14.0 ml LA Sys Volume AL 30.9 cm cubed M-MODE LA Ao Ratio MM 1.5 AV Cusp Separation MM 1.9 cm FINDINGS Left Ventricle Right Ventricle Right Atrium Left Atrium Mitral Valve Aortic Valve Tricuspid Valve Pulmonic Valve Pericardium Aorta IVC CONCLUSIONS Limited echocardiogram performed to assess LV systolic function LV systolic function is normal with EF of 60-65%. No regional wall motion abnormalities. No significant pericardial effusion Rahul Zambrano MD (Electronically Signed) Final Date: 25 April 2024 18:05 S
[2024-04-25 15:21] LABS: Hematocrit 34.3 % (36-47)
[2024-04-25] MEDS: norepinephrine 4 MG/250 ML BAG 7.5 MG IV (15:26)
--- NOTE | 2024-04-25 15:52 | PC.NURSE ---
Patient given another 250 ml bolus over [address] Sequeira.
--- NOTE | 2024-04-25 16:17 | PC.NURSE ---
arrived from [facility]
--- NOTE | 2024-04-25 16:17 | PC.NURSE ---
Dr. Espana to come to bedside to assess R groin site and remove if appropriate
--- NOTE | 2024-04-25 17:08 | PC.NURSE ---
Sheath pulled by Dr. Espana
[2024-04-25] MEDS: insulin glargine 100 units/1 mL 2 UNIT SUBCUT (17:26)
[2024-04-25 17:48] LABS: Glucose Point of Care 96 mg/dL (70-110)
[2024-04-25] MEDS: atorvastatin 40 mg Tablet PO (20:08)
[2024-04-25] MEDS: tizanidine 4 mg Tablet PO (20:13)
[2024-04-25 20:52] LABS: Glucose Point of Care 104 mg/dL (70-110)
--- NOTE | 2024-04-25 22:00 | PC.NURSE ---
Addendum entered by Toshia Sanches RN 04/26/24 00:13: Patient was repositioned within acceptable measures to provide comfort in addition to pain medication and hot packs. Original Note: Patient requested to be turned on her side, this nurse advised patient she was unable to do so because of her recent sheath removal and must maintain supine until allotted time was complete. Hot packs were placed on patient's back to provide comfort and pain medications were administered. Patient's spouse contacted unit and spoke to this nurse regarding patient's concerns over not being able to turn on side. Patient and spouse were educated on post cath and sheath removal guidelines.
[2024-04-25] MEDS: sodium chloride 0.9% 1,000 ML 100 ML IV (23:38)
[2024-04-25 23:48] LABS: Glucose Point of Care 124 mg/dL (70-110)
--- NOTE | 2024-04-25 23:59 | PC.NURSE ---
Patient requested popsicles, this nurse advised patient that this was not available due to patient receiving insulin for diabetes. Patient's called unit and spoke to this nurse on several occasions to address patient's concerns. This nurse educated patient and spouse on why a popsicle was not recommended.
[2024-04-26] VITALS (70 sets, daily range): BP systolic 72–218; BP diastolic 38–125; PULSE 73–110; RESP 10–27; TEMP 36.5–37.2; O2SAT 91–97; BMI 30.4
[2024-04-26] MEDS: oxyCODONE 5 mg IR Tab/Cap PO ×4 (02:20→15:20)
[2024-04-26] MEDS: LORazepam 2 mg/mL INJ 1 mL 1 MG IVP ×4 (04:39→23:36)
[2024-04-26 05:23] LABS: Glucose Point of Care 101 mg/dL (70-110)
[2024-04-26 05:36] LABS: Hematocrit 34.3 % (36-47); Mean Corpuscular HGB Conc 31.2 g/dL (30-55); Mean Corpuscular Hemoglobin 27.6 pg (27-33); Mean Corpuscular Volume 88.4 fl (85-98); Mean Platelet Volume 10.1 fL (7.4-10.4); Platelet Count 281 10^3/cmm (157-399); Red Blood Count 3.88 10^6/uL (3.85-5.65); Red Cell Distribution Width 16.2 % (12.1-15.1); White Blood Count 9.38 10^3/uL (3.29-11.43)
[2024-04-26 06:05] LABS: Alanine Aminotransferase 9 U/L (0-33); Albumin Level 2.9 g/dL (3.5-5.2); Alkaline Phosphatase 135 U/L (35-105); Anion Gap 13.8 (5-19); Aspartate Amino Transferase 24 U/L (0-32); Blood Urea Nitrogen 5 mg/dL (6-20); Calcium 8.5 mg/dL (8.5-10.5); Carbon Dioxide 25 mmol/L (22-29); Chloride 107 mmol/L (98-107); Creatinine Clr Calc Pharmacy 126.1128; Globulin 2.4 g/dL (1.3-4.6); Glucose 109 mg/dL (65-115); Magnesium 1.6 mg/dL (1.7-2.3); Osmolality Calculated 292 mOsm/kg (285-295); Potassium 3.8 mmol/L (3.5-5.1); Sodium 142 mmol/L (136-145); Total Bilirubin 0.5 mg/dL (0.15-1.2); Total Protein 5.3 g/dL (6.6-8.7)
[2024-04-26 06:10] LABS: Slide Review Slide Review Perform
[2024-04-26 06:13] LABS: Absolute Segmented Neutrophil 3.8 10/cmm (1.6-7.1); Lymphocytes 41 %; Lymphocytes Absolute 4.6 10^3/cmm (1.2-3.4); Segmented Neutrophils 40 %; Total Cells Counted 100 (0-100)
[2024-04-26 06:14] LABS: Absolute Neutrophil 3.8 10^3/cmm (1.4-6.5); Eosinophils 0 %; Platelet Estimate Normal (Normal)
[2024-04-26] MEDS: ondansetron 2 mg/ML SDV 2 mL 4 MG IVP ×2 (06:18→13:41)
[2024-04-26] MEDS: propranolol 20 mg Tablet PO ×2 (08:27→15:20)
[2024-04-26] MEDS: morphine ER (12 HR) 30 mg tablet PO ×2 (08:27→21:38)
[2024-04-26] MEDS: levETIRAcetam 500 mg Tablet 1250 MG PO ×2 (08:28→17:26)
[2024-04-26] MEDS: potassium chloride ER 20 mEq Tablet PO (08:29)
[2024-04-26] MEDS: clopidogrel 75 mg Tablet PO (08:29)
[2024-04-26] MEDS: insulin glargine 100 units/1 mL 2 UNIT SUBCUT ×2 (08:29→17:26)
--- NOTE | 2024-04-26 08:43 | P.PN_ITS ---
Subjective 2 Subjective: Reports she has pain all over. Does feel like she will be able to eat. Blood pressure improved significantly overnight. Off norepinephrine. Medications: Reviewed: Yes Vitals/I&O/Wt Last Vital Signs Temp 97.8 F 04/26/24 04:30 Pulse 103 H 04/26/24 05:47 Resp 12 04/26/24 06:18 BP 155/84 04/26/24 04:45 Pulse Ox 92 04/26/24 06:18 O2 Del Method Room Air 04/26/24 04:30 04/25/24 04/26/24 04/26/24 22:59 06:59 14:59 Intake Total 454.083 / 1405.250 131.625 / 1536.875 Output Total 200 / 200 1425 / 1625 Balance 254.083 / 1205.250 -1293.375 / -88.125 Weight last 48 hrs Weight 70.845 kg Weight 69.853 kg Physical Exam 2 Narrative: General exam, no distress Neck is supple Cardiovascular regular rate and rhythm, 3/6 systolic murmur Lungs clear Abdomen is soft, subjective tenderness. No rebound. Positive bowel sounds Extremities no cyanosis clubbing or edema. Right groin with soft hematoma, no bruit Urinary Catheter Management: Preston: Cath Placed During This Visit: yes, but has since been removed by the nurse Reason for Continuing Indwelling Catheter: Accurate Measurement of Urinary Output in Critically Ill Patients Urinary Catheter Date of Insertion: 04/16/24 Urinary Catheter Time of Insertion: 18:58 Date Urinary Catheter Removed: 04/23/24 Time Urinary Catheter Discontinued: 19:00 Data 04/26/24 04:58 04/26/24 04:58 A&P Assessment and plan (1) Hypertensive urgency: Blood pressure is now under better control on current regimen Currently being worked up for possible pheochromocytoma with 24-hour urine. This will take some time to get back and can be followed up by her counter attendant in [place] CT of her abdomen pelvis was done on entry into the hospital, there has been no increase in size since her last CT scan of her adrenal gland. Appreciate cardiology consult. Nuclear stress test with a small area of abnormality. Angiogram occurred today. Demonstrated some coronary disease but not flow relevant. Had spasm following the procedure and was started on a nitroglycerin drip. Patient had significant hypotension requiring transfer to ICU and norepinephrine for short while overnight. Blood pressure improved today and some mild tachycardia. Reinitiate propranolol. If tolerates propranolol and still hypertensive, consider readdition of other medications. Currently clonidine and Imdur on hold Note listed allergy to nicardipine in the past (2) Acute pancreatitis: Reviewed lipase, normalized, transaminases normal. Reviewed gallbladder ultrasound, discussed with her and her . Noted hypoechoic lesion in the right lobe of the liver most consistent with focal sparing. Status postcholecystectomy, nondilated CBD, 3 mm. She does state that it took her a while to come around from previous bout of pancreatitis with persistent pain, nausea. Has had poor oral intake. Abdominal discomfort is improved Encouraged follow-up with gastroenterology given recurrence of pancreatitis. Initial bout was thought to be secondary to a medication, but she has not been on that medicine prior to the current bout. Continue nausea control, pain control With recurrent pancreatitis, discussed with her would benefit from follow-up with gastroenterology to look for any other possible etiology, including possibility of autoimmune disease. Triglyceride level was not elevated Qualifiers: Acute pancreatitis complication: unspecified Pancreatitis type: u nspecified pancreatitis type Qualified Code(s): K85.90 - Acute pancreatitis without necrosis or infection, unspecified (3) Elevated troponin: Nuclear stress test with some abnormality Currently on Lovenox Plavix was added by cardiology Likely Riyad Imdur today See notations regarding angiogram above Continue statin Continue beta-bimal (4) Nausea and vomiting: Improved (5) Transaminitis: Now resolved. Hepatitis panel negative Gallbladder ultrasound fatty liver (6) Hypomagnesemia: Previously replaced and normal today (7) High anion gap metabolic acidosis: Resolved. Possibly early ketosis on presentation, although serum ketones negative. Monitor blood glucose. Continue insulin. Plan Hematuria: Urine culture negative, Rocephin stopped Diarrhea: C. difficile negative Diabetes: Continue current regimen. Consistent carb full liquid diet Epilepsy: Keppra p.o. Aortic regurgitation, bicuspid aortic valve. Discontinue Preston Attestations 2 Medical Necessity Statement*: Needs continued hospitalization for reinitiation of blood pressure medications in this patient that did have significant hypertensive urgency, and then significant hypotension following angiogram yesterday. Diagnoses Hypertensive urgency I16.0 Acute pancreatitis, unspecified complication status, unspecified pancreatitis type K85.90 Acute pancreatitis complication: unspecified Pancreatitis type: unspecified pancreatitis type Elevated troponin R79.89 Nausea and vomiting R11.2 Transaminitis R74.01 Hypomagnesemia E83.42 High anion gap metabolic acidosis E87.29 Time Spent (min) 23
[2024-04-26] MEDS: fluticasone nasal spray 16gm Btl 2 SPRAY NASAL (09:33)
[2024-04-26] MEDS: BRIVARACETAM 25 MG 25 EACH PO (09:34)
--- NOTE | 2024-04-26 09:37 | P.PN_ITS ---
Subjective 2 Subjective: Patient blood pressure is still fluctuating . She has pain in the chest and the abdomen. The chest pain mostly is musculoskeletal in nature. Pain gets worse with a deep inspiration and even with touch. Medications: Medication Review Details: Current Medications Atorvastatin Calcium (Atorvastatin 40 Mg Tablet) 40 mg PO BEDTIME [facility] Last Admin: 04/25/24 20:08 Dose: 40 mg Bisacodyl (Bisacodyl 10 Mg Supp) 10 mg IA DAILY PRN PRN Reason: CONSTIPATION Clopidogrel Bisulfate (Clopidogrel 75 Mg Tablet) 75 mg PO DAILY [facility] Last Admin: 04/26/24 08:29 Dose: 75 mg Fluticasone Propionate (Fluticasone Nasal [place] 16gm Btl) 2 spray NASAL DAILY [facility] Last Admin: 04/26/24 09:33 Dose: 2 spray Glucagon (Glucagon 1 Mg/Ml Kit 1 Ml) 1 mg IM ONCE PRN; Protocol PRN Reason: Adult Acute Hypoglycemia Nursing Prot. Dextrose (D5w) 500 mls @ 0 mls/hr IV ONCE PRN; Protocol PRN Reason: Adult Acute Hypoglycemia Prot Dextrose (D10w) 125 mls @ 750 mls/hr IV PRN PRN; Protocol PRN Reason: Adult Acute Hypoglycemia Nursing Protocol Dextrose (D10w) 250 mls @ 1,000 mls/hr IV PRN PRN; Protocol PRN Reason: Adult Acute Hypoglycemia Nursing Protocol Insulin Glargine (Insulin Glargine 100 Units/1 Ml) 2 unit SUBCUT BID [facility] Last Admin: 04/26/24 08:29 Dose: 2 unit Insulin Human Lispro (Insulin Lispro 100 Unit/1 Ml) 0 unit SUBCUT Q6H [facility]; Protocol Last Admin: 04/26/24 05:41 Dose: Not Given Isosorbide Mononitrate (Isosorbide Mononitrate Er 30 Mg Tablet) 30 mg PO DAILY [facility] Last Admin: 04/25/24 09:44 Dose: 30 mg Labetalol HCl (Labetalol 5 Mg/Ml Sdv 20ml) 10 mg IVP Q3H PRN PRN Reason: HYPERTENSION Last Admin: 04/23/24 02:30 Dose: 10 mg Levetiracetam (Levetiracetam 500 Mg Tablet) 1,250 mg PO BID [facility] Last Admin: 04/26/24 08:28 Dose: 1,250 mg Lorazepam (Lorazepam 2 Mg/Ml Inj 1 Ml) 1 mg IVP Q4H PRN PRN Reason: ANXIETY Last Admin: 04/26/24 09:32 Dose: 1 mg Metoclopramide HCl (Metoclopramide 5 Mg/Ml Sdv 2 Ml) 5 mg IVP Q6H PRN PRN Reason: NAUSEA AND VOMITING Last Admin: 04/23/24 21:09 Dose: 5 mg Morphine Sulfate (Morphine Er (12 Hr) 30 Mg Tablet) 30 mg PO Q12H [facility] Last Admin: 04/26/24 08:27 Dose: 30 mg Morphine Sulfate (Morphine 4 Mg/Ml Sdv 1 Ml) 2 mg IVP Q4H PRN PRN Reason: SEVERE PAIN Non-Formulary Medication (Brivaracetam [Briviact]) 25 mg PO DAILY [facility] Last Admin: 04/26/24 09:34 Dose: 25 mg Ondansetron HCl (Ondansetron 2 Mg/Ml Sdv 2 Ml) 4 mg IVP Q6H PRN PRN Reason: NAUSEA AND VOMITING Last Admin: 04/26/24 06:18 Dose: 4 mg Oxycodone HCl (Oxycodone 5 Mg Ir Tab/Cap) 5 mg PO Q4H PRN PRN Reason: MODERATE PAIN Last Admin: 04/26/24 06:18 Dose: 5 mg Potassium Chloride (Potassium Chloride Er 20 Meq Tablet) 20 meq PO DAILY [facility] Last Admin: 04/26/24 08:29 Dose: 20 meq Propranolol HCl (Propranolol 20 Mg Tablet) 20 mg PO TID [facility] Last Admin: 04/26/24 08:27 Dose: 20 mg Sodium Chloride (Saline Nasal [place] 44ml Btl) 1 spray NASAL PRN PRN PRN Reason: DRYNESS Tizanidine HCl (Tizanidine 4 Mg Tablet) 4 mg PO TID PRN PRN Reason: MUSCLE SPASMS Last Admin: 04/25/24 20:13 Dose: 4 mg Vitals/I&O/Wt Last Vital Signs Temp 97.8 F 04/26/24 04:30 Pulse 103 H 04/26/24 05:47 Resp 12 04/26/24 06:18 BP 155/84 04/26/24 04:45 Pulse Ox 92 04/26/24 06:18 O2 Del Method Room Air 04/26/24 04:30 04/25/24 04/26/24 04/26/24 22:59 06:59 14:59 Intake Total 454.083 / 1405.250 131.625 / 1536.875 Output Total 200 / 200 1425 / 1625 Balance 254.083 / 1205.250 -1293.375 / -88.125 Weight last 48 hrs Weight 156 lb 3 oz Weight 154 lb Physical Exam 2 Narrative: GENERAL: The patient is alert and oriented times three. Continues to complain about abdominal pain HEENT: No significant pallor, icterus or lymphadenopathy.Oral cavity: There are no mucous membrane lesions. NECK: Trachea appears to be central. No masses noted. No JVD or thyromegaly appreciated. RESPIRATORY: Chest is symmetrical. No intercostals muscle retraction or any accessory muscle activation. There is no chest wall tenderness. Breath sounds are heard bilaterally. No rales or rhonchi heard. No evidence of any consolidation. BREASTS: Deferred. HEART: The heart sounds are normal. No S3 or S4. No significant murmurs. No pericardial rub ABDOMEN: Minimal tenderness in the left upper quadrant. No organomegaly appreciated. Bowel sounds are normally heard. : Deferred. RECTAL: Deferred. LYMPHATIC: No lymphadenopathy noted in the neck. EXTREMITIES: No edema or cyanosis. MUSCULOSKELETAL: No acute joint deformities or swelling SKIN: There are no significant rashes or ecchymosis NEUROPSYCHIATRIC: Patient is complaining about pain. Appears very uncomfortable, extremely nervous. Urinary Catheter Management: Preston: Cath Placed During This Visit: yes, but has since been removed by the nurse Reason for Continuing Indwelling Catheter: Accurate Measurement of Urinary Output in Critically Ill Patients Urinary Catheter Date of Insertion: 04/16/24 Urinary Catheter Time of Insertion: 18:58 Date Urinary Catheter Removed: 04/23/24 Time Urinary Catheter Discontinued: 19:00 Data 04/26/24 04:58 04/26/24 04:58 Other Labs: Laboratory Last Values WBC 9.38 10^3/uL (3.29-11.43) 04/26/24 04:58 RBC 3.88 10^6/uL (3.85-5.65) 04/26/24 04:58 Hgb 10.70 g/dL (11.27-16.99) L 04/26/24 04:58 Hct 34.3 % (36-47) L 04/26/24 04:58 MCV 88.4 fl (85-98) 04/26/24 04:58 MCH 27.6 pg (27-33) 04/26/24 04:58 MCHC 31.2 g/dL (30-55) 04/26/24 04:58 RDW 16.2 % (12.1-15.1) H 04/26/24 04:58 Plt Count 281 10^3/cmm (157-399) 04/26/24 04:58 MPV 10.1 fL (7.4-10.4) 04/26/24 04:58 Neut % (Auto) 18.2 % 04/25/24 04:57 Lymph % (Auto) Not Reportable 04/26/24 04:58 Nance % (Auto) Not Reportable 04/26/24 04:58 Eos % (Auto) 2.0 % 04/25/24 04:57 Baso % (Auto) 0.8 % 04/25/24 04:57 Neut # (Auto) 1.54 10^3/uL (1.8-7.7) L 04/25/24 04:57 Lymph # (Auto) Not Reportable 04/26/24 04:58 Nance # (Auto) Not Reportable 04/26/24 04:58 Eos # (Auto) 0.2 10^3/uL (0.0-0.8) 04/25/24 04:57 Baso # (Auto) 0.1 10^3/uL (0.0-0.1) 04/25/24 04:57 Nucleated RBC % (auto) 0 % 04/25/24 04:57 Total Counted 100 (0-100) 04/26/24 04:58 Atypical Lymphs % 8.0 % (0-5) H 04/26/24 04:58 Absolute Neutrophils 3.8 10^3/cmm (1.4-6.5) 04/26/24 04:58 Segmented Neutrophils 40 % 04/26/24 04:58 Abs Segm Neuts (Man) 3.8 10/cmm (1.6-7.1) 04/26/24 04:58 Band Neutrophils 0.0 % 04/26/24 04:58 Abs Band Neuts (Man) 0.0 10^3/cmm (0.0-1.2) 04/26/24 04:58 Absolute Lymphocytes 4.6 10^3/cmm (1.2-3.4) H 04/26/24 04:58 Lymphocytes (Manual) 41 % 04/26/24 04:58 Monocytes (Manual) 11.0 % 04/26/24 04:58 Absolute Monocytes 1.0 10^3/cmm (0.1-0.6) H 04/26/24 04:58 Eosinophils (Manual) 0 % 04/26/24 04:58 Absolute Eosinophils 0.0 10^3/cmm (0.0-0.7) 04/26/24 04:58 Basophils (Manual) 0.0 % 04/26/24 04:58 Absolute Basophils 0.0 10^3/cmm (0.0-0.2) 04/26/24 04:58 Nucleated RBCs 1.0 /100WBC (0-1) 04/26/24 04:58 Nucleated RBCs # 0.0 /100WBC 04/25/24 04:57 Platelet Estimate Normal (Normal) 04/26/24 04:58 APTT 27.7 SECONDS (23.9-36.7) 04/25/24 13:23 Sodium 142 mmol/L (136-145) 04/26/24 04:58 Potassium 3.8 mmol/L (3.5-5.1) 04/26/24 04:58 Chloride 107 mmol/L (98-107) 04/26/24 04:58 Carbon Dioxide 25 mmol/L (22-29) 04/26/24 04:58 Anion Gap 13.8 (5-19) 04/26/24 04:58 BUN 5 mg/dL (6-20) L 04/26/24 04:58 Creatinine 0.5 mg/dL (0.5-0.9) 04/26/24 04:58 GFR Calculation 134.0 mL/min (90-130) H 04/26/24 04:58 Glucose 109 mg/dL (65-115) 04/26/24 04:58 POC Glucose 101 mg/dL (70-110) 04/26/24 05:20 Calculated Osmolality 292 mOsm/kg (285-295) 04/26/24 04:58 Lactic Acid 5.5 mmol/L (0.5-2.2) H* 04/16/24 11:30 Lactic Acid (Sepsis) 4.2 mmol/L (0.5-2.2) H* 04/16/24 14:10 Calcium 8.5 mg/dL (8.5-10.5) 04/26/24 04:58 Phosphorus 1.6 mg/dL (2.5-4.5) L 04/17/24 02:57 Magnesium 1.6 mg/dL (1.7-2.3) L 04/26/24 04:58 Total Bilirubin 0.5 mg/dL (0.15-1.2) 04/26/24 04:58 AST 24 U/L (0-32) 04/26/24 04:58 ALT 9 U/L (0-33) 04/26/24 04:58 Alkaline Phosphatase 135 U/L (35-105) H 04/26/24 04:58 Creatine Kinase 91 U/L (26-192) 04/20/24 04:25 Troponin T Baseline 16 ng/L (0-10) H 04/16/24 08:56 Troponin T 120 Minute 71.40 ng/L (0-10) H 04/16/24 11:30 Delta Troponin T 55.40 ABS# (0-10) H* 04/16/24 11:30 Troponin T Hi Sens 6Hr 148.9 ng/L (0-10) H 04/16/24 14:10 Troponin T Hi Sens 6Hr Delta 132.9 ng/L (0-12) H* 04/16/24 14:10 NT-Pro-B Natriuret Pep 1894 pg/mL (0-125) H 04/16/24 08:56 Total Protein 5.3 g/dL (6.6-8.7) L 04/26/24 04:58 Albumin 2.9 g/dL (3.5-5.2) L 04/26/24 04:58 Globulin 2.4 g/dL (1.3-4.6) 04/26/24 04:58 Triglycerides 132 mg/dL (0-150) 04/16/24 08:56 Lipase 19 U/L (13-60) 04/22/24 04:16 HCG, Qual Negative (Negative) 04/24/24 04:57 Urine Color Red (Yellow) A 04/20/24 11:52 Urine Appearance Cloudy (CLEAR) A 04/20/24 11:52 Urine pH 8 (5-7) H 04/20/24 11:52 Ur Specific [place] 1.010 (1.005-1.030) 04/20/24 11:52 Urine Protein Neg (Negative) 04/20/24 11:52 Urine Glucose (UA) 2+ (Normal) H 04/20/24 11:52 Urine Ketones Negative (Negative) 04/20/24 11:52 Urine Blood 3+ (Negative) H 04/20/24 11:52 Urine Nitrate Negative (Negative) 04/20/24 11:52 Urine Bilirubin Neg (Negative) 04/20/24 11:52 Urine Urobilinogen Norm mg/dL (Negative) 04/20/24 11:52 Ur Leukocyte Esterase Negative (Negative) 04/20/24 11:52 Urine RBC 80-100 /hpf (0-2) H 04/20/24 11:52 Urine WBC 10-15 /hpf (0-5) H 04/20/24 11:52 Ur Squamous Epith Cells Rare /hpf (0-5) 04/20/24 11:52 Amorphous Sediment Not Reportable 04/20/24 11:52 Urine Bacteria Trace /hpf (NONE) 04/20/24 11:52 Serum Ketones Negative (Negative) 04/16/24 08:56 C. difficile (PCR) Negative (Negative) 04/22/24 17:20 Coronavirus 229E (PCR) Not detected (NOT DETECT) 04/16/24 07:44 Hepatitis A IgM Ab Non-reactive (Nonreactive) 04/16/24 14:10 Hep Bs Antigen Non-reactive (Nonreactive) 04/16/24 14:10 Hep B Core IgM Ab Non-reactive (Nonreactive) 04/16/24 14:10 Hepatitis C Antibody Non-reactive (Nonreactive) 04/16/24 14:10 SARS-CoV-2 (PCR) Not detected (NOT DETECT) 04/16/24 07:44 A&P Assessment and plan (1) Elevated troponin: Possibly due to the neurology elevation microinfarction. Cardiac catheterization revealed a high-grade lesion is more obtuse marginal branch of the circumflex artery. Based on the angiogram findings, it was opted to treat him medically. (2) HOCM (hypertrophic obstructive cardiomyopathy): Resting gradient across the LV outflow tract was found to be around 25 millimeters of mercury, by cardiac radiation. (3) Acute pancreatitis: Clinically has significant improvement. Qualifiers: Acute pancreatitis complication: unspecified Pancreatitis type: u nspecified pancreatitis type Qualified Code(s): K85.90 - Acute pancreatitis without necrosis or infection, unspecified (4) Accelerated hypertension: Is possible that the patient may have a secondary hypertension. The urine studies are pending. It is possible that the patient may have a hyperfunctioning adrenal tumor. May gradually increase the dose of the [id number]. (5) DM2 (diabetes mellitus, type 2): Management as per the primary. 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 Plan Other problems are History of seizure disorder Anxiety disorder Hypokalemia, currently normokalemic Multiple electrolyte imbalance, fairly corrected at this point Nausea and vomiting, has significant improvement Leukocytosis, back to normal. Consider anti-inflammatory medication for the chest wall pain. Optimize the beta-blockers for the blood pressure. Consider endocrinology referral Attestations 2 Medical Necessity Statement*: Disposition as per the primary Coding Level of Care Code 39797 Diagnoses Elevated troponin R79.89 HOCM (hypertrophic obstructive cardiomyopathy) I42.1 Acute pancreatitis, unspecified complication status, unspecified pancreatitis type K85.90 Acute pancreatitis complication: unspecified Pancreatitis type: unspecified pancreatitis type Accelerated hypertension I10 Type 2 diabetes mellitus with other specified complication, with long-term current use of insulin E11.69; Z79.4 Diabetes mellitus alf insulin use: with ferry terminal supervisor use Diabetes mellitus complication status: with other specified complication Aortic valve, bicuspid Q23.1
[2024-04-26] MEDS: metoclopramide 5 mg/mL SDV 2 mL IVP (09:38)
[2024-04-26] MEDS: isosorbide mononitrate ER 30 mg Tablet PO (10:54)
[2024-04-26 11:12] LABS: Glucose Point of Care 114 mg/dL (70-110)
[2024-04-26] MEDS: tizanidine 4 mg Tablet PO (13:46)
[2024-04-26] MEDS: cloNIDine 0.1 mg/24 hr Patch 1 PATCH TRANSDERMA (15:40)
[2024-04-26 16:51] LABS: Glucose Point of Care 140 mg/dL (70-110)
--- NOTE | 2024-04-26 17:19 | PC.NURSE ---
Reprot given to AMPARO Kingsley
[2024-04-26 17:56] LABS: Glucose Point of Care 124 mg/dL (70-110)
--- NOTE | 2024-04-26 18:15 | PC.NURSE ---
Teetee RN , CSU called and notified of new order to stop Clonidine patch due to her softer BP.
--- NOTE | 2024-04-26 18:19 | PC.NURSE ---
Clonidine patch removed off upper right arm. Per Madie in ICU, Hua discontinued medication at 1743.
[2024-04-26] MEDS: atorvastatin 40 mg Tablet PO (21:39)
[2024-04-26 23:48] LABS: Glucose Point of Care 97 mg/dL (70-110)
[2024-04-27] VITALS (30 sets, daily range): BP systolic 92–207; BP diastolic 47–108; PULSE 75–121; RESP 12–27; TEMP 36.7–36.9; O2SAT 93–96
[2024-04-27] MEDS: oxyCODONE 5 mg IR Tab/Cap PO ×2 (00:53→10:49)
[2024-04-27] MEDS: ondansetron 2 mg/ML SDV 2 mL 4 MG IVP ×2 (02:35→08:18)
[2024-04-27] MEDS: tizanidine 4 mg Tablet PO ×2 (02:35→10:51)
[2024-04-27] MEDS: propranolol 20 mg Tablet PO ×2 (04:01→08:10)
[2024-04-27] MEDS: LORazepam 2 mg/mL INJ 1 mL 1 MG IVP ×3 (04:01→12:23)
[2024-04-27 05:08] LABS: Basophils # 0.1 10^3/uL (0.0-0.1); Basophils % 1.1 %; Eosinophils # 0.1 10^3/uL (0.0-0.8); Eosinophils % 1.3 %; Hematocrit 36.7 % (36-47); Lymphocytes # 3.6 10^3/uL (0.8-4.8); Mean Corpuscular HGB Conc 31.9 g/dL (30-55); Mean Corpuscular Hemoglobin 27.7 pg (27-33); Mean Corpuscular Volume 86.8 fl (85-98); Mean Platelet Volume 10.5 fL (7.4-10.4); Monocytes # 1.1 10^3/uL (0.2-0.9); Monocytes % 14.1 %; Neutrophils # 2.52 10^3/uL (1.8-7.7); Neutrophils % 33.5 %; Nucleated Red Blood Cells % 0 %; Platelet Count 275 10^3/cmm (157-399); Red Blood Count 4.23 10^6/uL (3.85-5.65); Red Cell Distribution Width 15.8 % (12.1-15.1); White Blood Count 7.52 10^3/uL (3.29-11.43)
[2024-04-27 05:33] LABS: Glucose Point of Care 118 mg/dL (70-110)
[2024-04-27 05:35] LABS: Alanine Aminotransferase 8 U/L (0-33); Albumin Level 3.1 g/dL (3.5-5.2); Alkaline Phosphatase 159 U/L (35-105); Anion Gap 13.8 (5-19); Aspartate Amino Transferase 25 U/L (0-32); Blood Urea Nitrogen 4 mg/dL (6-20); Calcium 8.7 mg/dL (8.5-10.5); Carbon Dioxide 27 mmol/L (22-29); Chloride 104 mmol/L (98-107); Creatinine Clr Calc Pharmacy 157.9561; Globulin 2.9 g/dL (1.3-4.6); Glomerular Filtration Rate 173.4 mL/min (90-130); Glucose 117 mg/dL (65-115); Magnesium 1.7 mg/dL (1.7-2.3); Osmolality Calculated 290 mOsm/kg (285-295); Potassium 3.8 mmol/L (3.5-5.1); Sodium 141 mmol/L (136-145); Total Bilirubin 0.5 mg/dL (0.15-1.2)
--- NOTE | 2024-04-27 05:47 | PC.NURSE ---
Patient BP was soft 92/51 Dr Edward notified and propranolol was held. Later in the shift (02:30) BP was elevated at 183/116 Dr notified and one time dose of propranolol was given.
[2024-04-27] MEDS: levETIRAcetam 500 mg Tablet 1250 MG PO (08:07)
[2024-04-27] MEDS: morphine ER (12 HR) 30 mg tablet PO (08:08)
[2024-04-27] MEDS: clopidogrel 75 mg Tablet PO (08:09)
[2024-04-27] MEDS: isosorbide mononitrate ER 30 mg Tablet PO (08:10)
[2024-04-27] MEDS: potassium chloride ER 20 mEq Tablet PO (08:11)
[2024-04-27] MEDS: apixaban 5 mg Tablet PO (08:11)
[2024-04-27] MEDS: fluticasone nasal spray 16gm Btl 2 SPRAY NASAL (08:12)
[2024-04-27] MEDS: BRIVARACETAM 25 MG 25 EACH PO (08:12)
[2024-04-27] MEDS: insulin glargine 100 units/1 mL 2 UNIT SUBCUT (08:25)
--- NOTE | 2024-04-27 09:13 | PM.DCS ---
Discharge Providers Date of Admission: 04/16/24 12:54 Date of Discharge: April 27, 2024 Attending Provider at Admission: Brett Patton Attending Provider at Discharge: Richard Sequeira MD Primary Care Provider: Galo Perez MD Diagnoses at Discharge Discharge Diagnosis (1) Elevated troponin: Status: Acute (2) HOCM (hypertrophic obstructive cardiomyopathy): Status: Acute (3) Acute pancreatitis: Status: Acute Qualifiers: Acute pancreatitis complication: unspecified Pancreatitis type: unspecified pancreatitis type Qualified Code(s): K85.90 - Acute pancreatitis without necrosis or infection, unspecified (4) Accelerated hypertension: Status: Acute (5) DM2 (diabetes mellitus, type 2): Status: Acute Qualifiers: Diabetes mellitus complication status: with other specified complication Diabetes mellitus detention insulin use: with detention use Qualified Code(s): E11.69 - Type 2 diabetes mellitus with other specified complication; 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 She was placed in the hospital for pain control, hydration, treatment of electrolyte abnormalities. There was concern of elevated troponin and non-ST elevation myocardial infarction as well as hypertensive urgency. In regards to this a cardiology consult was obtained, echo ordered, Plavix added by cardiology, and initially on esmolol drip for hypertensive urgency. Insulin adjustments occurred. Her nausea and vomiting was treated, as well as pain. Significant delta on her troponin was noted. There was a fair amount of blood pressure variation while in the hospital. Consideration was even given to rebound hypertension with clonidine. From admission to 04/22 patient had some persistent abdominal discomfort. Pain medications were adjusted, slow increase in feedings. Medication for hypertensive urgency was adjusted and at that time included clonidine and propranolol. She had a severe component of anxiety as well and Ativan was added. Significant imaging of her gallbladder and pancreas was obtained and there did not appear to be any common bile duct dilation. When I assumed her care on 04/23 she was having pain in her chest and abdomen that was difficult to contribute to any specific cause. Severe anxiety was also playing a role. I discussed her case with cardiology and they recommended nuclear stress test. This was positive on 04/23 and she went on to receive an angiogram on 04/25. Previous to that her blood pressure had remained stable to slightly low on her current regimen. Her angiogram demonstrated significant coronary disease, but no intervention was warranted at that time. She did have coronary vasospasm requiring a nitroglycerin drip. She did receive quite a bit of medication in the catheterization lab needed for blood pressure. She had some hypotension following the procedure requiring ICU stay, further adjustment of medication to include Imdur, propranolol. Ultimately clonidine was discontinued. By 04/27 she was having chronic pain but able to tolerated blood pressure was under good control. It was thought she could go home and continue to follow-up with cardiology, and her primary care provider. She should also have follow-up with gastroenterology which primary care can arrange. Multiple medications were changed for her blood pressure. I did prescribe a short course of additional pain medication for her as well as anxiety. I encouraged her to follow-up with [facility]. She and her were present for the conversation and agreed with the plan. There was some concerns with the possibility of adrenal tumor. CT abdomen pelvis on admission did not show growth of her adrenal that was of concern. A 24-hour urine was performed but not resulted at discharge. She reports she is following up with endocrinology regarding this. Discussed with and patient need to closely monitor with any kind of anxiety medicine and narcotic for unintentional overdose. Narcan prescription initiated. Physical Exam Narrative: General exam no distress, conversant and pleasant Neck is supple Cardiovascular regular rate and rhythm with 3/6 systolic murmur Lungs clear Abdomen soft, some bruising noted but soft Right groin without significant hematoma, extremities no cyanosis clubbing or edema Urinary Catheter Management: Preston: Cath Placed During This Visit: yes, but has since been removed by the nurse Reason for Continuing Indwelling Catheter: Decision to DC Catheter Urinary Catheter Date of Insertion: 04/16/24 Urinary Catheter Time of Insertion: 18:58 Date Urinary Catheter Removed: 04/26/24 Time Urinary Catheter Discontinued: 11:00 Discharge Data Studies Completed and Pending Completed Studies During Hospitalization Category Date Time Status CT abdomen pelvis w con* [id number] Stat Cat Scan 04/16/24 08:27 Completed Sestamibi Stress Test Request Routine Exams 04/23/24 12:41 Draft XR chest 1V [id number] Stat Exams 04/16/24 11:43 Completed NM blaise perf SPECT r/s* [id number] Routine Nuc Med 04/24/24 12:41 Completed CV. echo limited [id number] Routine Ultrasound 04/17/24 15:11 Completed CV. echo limited [id number] Stat Ultrasound 04/25/24 14:46 Completed US gall bladder [id number] Routine Ultrasound 04/21/24 16:28 Completed Pending at discharge Category Date Time Status SEQUINS SLINGER request for service Routine Exams 04/25/24 07:00 Taken Catecholamines Free,Urine 24hr Routine Lab 04/20/24 17:55 Received Catecholamines, Fraction Plasm Routine Lab 04/20/24 18:16 Received Radiology Impressions Abdomen/Pelvis CT 04/16/24 08:27 IMPRESSION: 1. Findings compatible with acute pancreatitis. No drainable fluid collections. Recommend correlation with pancreatic enzymes. 2. Diffuse fatty infiltration of the liver. 3. Portal vein and splenic vein are patent. 4. Prior cholecystectomy. 5. Small esophageal hernia. 6. Moderate stoner colonic constipation 7. No other acute findings. Notified Osmel Segovia DO at 04/16/2024 10:38 AM. Chest X-Ray 04/16/24 11:43 IMPRESSION: 1. Right IJ central venous catheter terminates at the right atrium. 2. No acute cardiopulmonary findings. Gallbladder Ultrasound 04/21/24 16:28 IMPRESSION: Unremarkable duplex of the portal vein. IMPRESSION: 1. Fatty liver. Hypoechoic lesion in the right lobe of the liver most consistent with focal sparing. 2. Limited study with nonvisualization of the pancreas and under measured right kidney. 2. Status post cholecystectomy. 3. Otherwise unremarkable right upper quadrant ultrasound. Laboratory Results WBC 7.52 10^3/uL (3.29-11.43) 04/27/24 04:30 RBC 4.23 10^6/uL (3.85-5.65) 04/27/24 04:30 Hgb 11.70 g/dL (11.27-16.99) 04/27/24 04:30 Hct 36.7 % (36-47) 04/27/24 04:30 MCV 86.8 fl (85-98) 04/27/24 04:30 MCH 27.7 pg (27-33) 04/27/24 04:30 MCHC 31.9 g/dL (30-55) 04/27/24 04:30 RDW 15.8 % (12.1-15.1) H 04/27/24 04:30 Plt Count 275 10^3/cmm (157-399) 04/27/24 04:30 MPV 10.5 fL (7.4-10.4) H 04/27/24 04:30 Neut % (Auto) 33.5 % 04/27/24 04:30 Lymph % (Auto) 48.0 % 04/27/24 04:30 Donley % (Auto) 14.1 % 04/27/24 04:30 Eos % (Auto) 1.3 % 04/27/24 04:30 Baso % (Auto) 1.1 % 04/27/24 04:30 Neut # (Auto) 2.52 10^3/uL (1.8-7.7) 04/27/24 04:30 Lymph # (Auto) 3.6 10^3/uL (0.8-4.8) 04/27/24 04:30 Donley # (Auto) 1.1 10^3/uL (0.2-0.9) H 04/27/24 04:30 Eos # (Auto) 0.1 10^3/uL (0.0-0.8) 04/27/24 04:30 Baso # (Auto) 0.1 10^3/uL (0.0-0.1) 04/27/24 04:30 Nucleated RBC % (auto) 0 % 04/27/24 04:30 Total Counted 100 (0-100) 04/26/24 04:58 Atypical Lymphs % 8.0 % (0-5) H 04/26/24 04:58 Absolute Neutrophils 3.8 10^3/cmm (1.4-6.5) 04/26/24 04:58 Segmented Neutrophils 40 % 04/26/24 04:58 Abs Segm Neuts (Man) 3.8 10/cmm (1.6-7.1) 04/26/24 04:58 Band Neutrophils 0.0 % 04/26/24 04:58 Abs Band Neuts (Man) 0.0 10^3/cmm (0.0-1.2) 04/26/24 04:58 Absolute Lymphocytes 4.6 10^3/cmm (1.2-3.4) H 04/26/24 04:58 Lymphocytes (Manual) 41 % 04/26/24 04:58 Monocytes (Manual) 11.0 % 04/26/24 04:58 Absolute Monocytes 1.0 10^3/cmm (0.1-0.6) H 04/26/24 04:58 Eosinophils (Manual) 0 % 04/26/24 04:58 Absolute Eosinophils 0.0 10^3/cmm (0.0-0.7) 04/26/24 04:58 Basophils (Manual) 0.0 % 04/26/24 04:58 Absolute Basophils 0.0 10^3/cmm (0.0-0.2) 04/26/24 04:58 Nucleated RBCs 1.0 /100WBC (0-1) 04/26/24 04:58 Nucleated RBCs # 0.0 /100WBC 04/27/24 04:30 Platelet Estimate Normal (Normal) 04/26/24 04:58 APTT 27.7 SECONDS (23.9-36.7) 04/25/24 13:23 Sodium 141 mmol/L (136-145) 04/27/24 04:30 Potassium 3.8 mmol/L (3.5-5.1) 04/27/24 04:30 Chloride 104 mmol/L (98-107) 04/27/24 04:30 Carbon Dioxide 27 mmol/L (22-29) 04/27/24 04:30 Anion Gap 13.8 (5-19) 04/27/24 04:30 BUN 4 mg/dL (6-20) L 04/27/24 04:30 Creatinine 0.4 mg/dL (0.5-0.9) L 04/27/24 04:30 GFR Calculation 173.4 mL/min (90-130) H 04/27/24 04:30 Glucose 117 mg/dL (65-115) H 04/27/24 04:30 POC Glucose 118 mg/dL (70-110) H 04/27/24 05:30 Calculated Osmolality 290 mOsm/kg (285-295) 04/27/24 04:30 Lactic Acid 5.5 mmol/L (0.5-2.2) H* 04/16/24 11:30 Lactic Acid (Sepsis) 4.2 mmol/L (0.5-2.2) H* 04/16/24 14:10 Calcium 8.7 mg/dL (8.5-10.5) 04/27/24 04:30 Phosphorus 1.6 mg/dL (2.5-4.5) L 04/17/24 02:57 Magnesium 1.7 mg/dL (1.7-2.3) 04/27/24 04:30 Total Bilirubin 0.5 mg/dL (0.15-1.2) 04/27/24 04:30 AST 25 U/L (0-32) 04/27/24 04:30 ALT 8 U/L (0-33) 04/27/24 04:30 Alkaline Phosphatase 159 U/L (35-105) H 04/27/24 04:30 Creatine Kinase 91 U/L (26-192) 04/20/24 04:25 Troponin T Baseline 16 ng/L (0-10) H 04/16/24 08:56 Troponin T 120 Minute 71.40 ng/L (0-10) H 04/16/24 11:30 Delta Troponin T 55.40 ABS# (0-10) H* 04/16/24 11:30 Troponin T Hi Sens 6Hr 148.9 ng/L (0-10) H 04/16/24 14:10 Troponin T Hi Sens 6Hr Delta 132.9 ng/L (0-12) H* 04/16/24 14:10 NT-Pro-B Natriuret Pep 1894 pg/mL (0-125) H 04/16/24 08:56 Total Protein 6.0 g/dL (6.6-8.7) L 04/27/24 04:30 Albumin 3.1 g/dL (3.5-5.2) L 04/27/24 04:30 Globulin 2.9 g/dL (1.3-4.6) 04/27/24 04:30 Triglycerides 132 mg/dL (0-150) 04/16/24 08:56 Lipase 19 U/L (13-60) 04/22/24 04:16 HCG, Qual Negative (Negative) 04/24/24 04:57 Urine Color Red (Yellow) A 04/20/24 11:52 Urine Appearance Cloudy (CLEAR) A 04/20/24 11:52 Urine pH 8 (5-7) H 04/20/24 11:52 Ur Specific [place] 1.010 (1.005-1.030) 04/20/24 11:52 Urine Protein Neg (Negative) 04/20/24 11:52 Urine Glucose (UA) 2+ (Normal) H 04/20/24 11:52 Urine Ketones Negative (Negative) 04/20/24 11:52 Urine Blood 3+ (Negative) H 04/20/24 11:52 Urine Nitrate Negative (Negative) 04/20/24 11:52 Urine Bilirubin Neg (Negative) 04/20/24 11:52 Urine Urobilinogen Norm mg/dL (Negative) 04/20/24 11:52 Ur Leukocyte Esterase Negative (Negative) 04/20/24 11:52 Urine RBC 80-100 /hpf (0-2) H 04/20/24 11:52 Urine WBC 10-15 /hpf (0-5) H 04/20/24 11:52 Ur Squamous Epith Cells Rare /hpf (0-5) 04/20/24 11:52 Amorphous Sediment Not Reportable 04/20/24 11:52 Urine Bacteria Trace /hpf (NONE) 04/20/24 11:52 Serum Ketones Negative (Negative) 04/16/24 08:56 C. difficile (PCR) Negative (Negative) 04/22/24 17:20 Coronavirus 229E (PCR) Not detected (NOT DETECT) 04/16/24 07:44 Hepatitis A IgM Ab Non-reactive (Nonreactive) 04/16/24 14:10 Hep Bs Antigen Non-reactive (Nonreactive) 04/16/24 14:10 Hep B Core IgM Ab Non-reactive (Nonreactive) 04/16/24 14:10 Hepatitis C Antibody Non-reactive (Nonreactive) 04/16/24 14:10 SARS-CoV-2 (PCR) Not detected (NOT DETECT) 04/16/24 07:44 Vitals Last Vital Signs Temp 98.1 F 04/27/24 07:03 Pulse 81 04/27/24 07:03 Resp 21 H 04/27/24 08:08 BP 110/59 04/27/24 07:03 Pulse Ox 96 04/27/24 08:08 O2 Del Method Room Air 04/27/24 07:03 Discharge Plan Discharge Patient Disposition: Home Condition: Stable Prescriptions: New oxycodone 5 mg Tablet 5 mg PO Q4H PRN (Reason: Moderate Pain) Qty: 20 0RF lorazepam [Ativan] 0.5 mg tablet 0.5 mg PO TID PRN (Reason: anxiety) Qty: 20 0RF propranolol 20 mg Tablet 20 mg PO TID Qty: 90 0RF insulin glargine [Lantus Solostar U-100 Insulin] 100 unit/mL (3 mL) insulin pen 2 unit SUBCUT BID Qty: 15 0RF clopidogrel 75 mg Tablet 75 mg PO DAILY Qty: 30 0RF atorvastatin 40 mg Tablet 40 mg PO BEDTIME Qty: 30 0RF isosorbide mononitrate 30 mg Tablet Extended Release 24 Hr 30 mg PO DAILY Qty: 30 0RF naloxone [Narcan] 4 mg/actuation spray,non-aerosol 4 mg intranasal Q2M PRN (Reason: opioid overdose) Qty: 2 0RF Rx Instructions: spray 1 dose into ONE nostril; alternate nostrils w each dose until help arrives Continued (DME) STANDARD WHEELCHAIR See Rx Instructions .Route .MEDSUPPLY Qty: 1 0RF Rx Instructions: As directed (DME) blood-glucose meter [OneTouch Ultra2 Meter] [facility] [place] See Rx Instructions .Route Qty: 1 0RF Rx Instructions: As directed (DME) lancets [OneTouch UltraSoft Lancets] [facility] [place] See Rx Instructions .Route Qty: 200 2RF Rx Instructions: As directed lactulose 10 gram/15 mL (15 mL) solution 10 g PO DAILY PRN (Reason: constipation) Qty: 600 0RF (DME) ASO to the right See Rx Instructions .Route .MEDSUPPLY Qty: 1 0RF Rx Instructions: As directed levetiracetam 500 mg tablet 1,250 mg PO BID 60 Days Qty: 300 1RF (DME) shower chair See Rx Instructions .Route .MEDSUPPLY Qty: 1 0RF Rx Instructions: As directed (DME) lancets [OneTouch Delica Plus Lancet] 33 gauge [facility] [place] See Rx Instructions .ROUTE .COMPLEX Qty: 100 3RF Dose Instruction: test fasting EVERY MORNING and hours AFTER MEALS Rx Instructions: test fasting EVERY MORNING and hours AFTER MEALS Briviact 25 mg tablet 25 mg PO DAILY Qty: 60 3RF morphine 30 mg tablet extended release 30 mg PO Q12H 30 Days Qty: 60 0RF Rx Instructions: [place] 0800/2000 [place] [place] See Rx Instructions .Route .MEDSUPPLY Qty: 1 0RF Rx Instructions: [place] [place] OneTouch Ultra Test Strip See Rx Instructions .ROUTE .COMPLEX Qty: 200 0RF Dose Instruction: TO test FOUR TIMES DAILY Rx Instructions: TO test FOUR TIMES DAILY spironolactone 25 mg Tablet 25 mg PO DAILY Zenpep 40,000-126,000- 168,000 unit capsule,delayed release(DR/EC) 1 cap PO TIDWMEAL Rx Instructions: administer with meals and/or snacks pantoprazole 40 mg tablet,delayed release (DR/EC) 40 mg PO BID ondansetron 4 mg tablet,disintegrating 4 mg PO Q8H PRN (Reason: Nausea And Vomiting) Eliquis 5 mg tablet 5 mg PO BID Discontinued Lantus Solostar U-100 Insulin 100 unit/mL (3 mL) insulin pen 20 unit SUBCUT BID Qty: 15 1RF metoprolol tartrate 25 mg tablet 12.5 mg PO BID Qty: 60 1RF furosemide 20 mg tablet 20 mg PO DAILY PRN (Reason: edema) Qty: 30 0RF insulin lispro 100 unit/mL insulin pen 6 unit SUBCUT TIDWMEAL 30 Days Qty: 15 3RF scopolamine base 1 mg over 3 days patch 3 day 1 patch transdermal Q3D PRN (Reason: nausea and vomiting) Qty: 24 0RF isosorbide mononitrate 30 mg Tablet Extended Release 24 Hr 15 mg PO DAILY clonidine HCl 0.1 mg tablet 0.1 mg PO BID tizanidine 4 mg tablet 4 mg PO TID PRN (Reason: MUSCLE SPASMS) zolpidem 5 mg tablet 5 mg PO QPM PRN (Reason: insomnia) potassium chloride 20 mEq tablet extended release 20 meq PO DAILY PRN (Reason: Edema) Discharge Orders: Discharge Order (Routine); Ordered 04/27/24 Ordered By: Richard Sequeira Referrals: Bonnie Singh FNP [Nurse Practitioner] - 2 weeks Galo Perez MD [Primary Care Provider] - 4-7 days (CBC and BMP on follow-up) Discharge Diet: Diabetic and Low Fat Patient Instructions: Coronary Angioplasty (DC), Opioid Safety, Post Angiogram Home Care Instructions, Pain Management Activity Restrictions/Additional Instructions: Low-fat diet, consistent carb diet Left heart cath restrictions. Keep track of sugars before every meal and at bedtime and report to primary care provider. Outpatient physical therapy if this can be arranged. Take all medicine as prescribed Please have patient's sign release of records for spinneret person to obtain her 24-hour urine report, CT abdomen and pelvis Return for any concerns Visit with your primary care provider regarding anxiety Keep track of blood pressure, after sitting for 5 minutes and resting. Take once every morning for your blood pressure log. CBC and BMP on follow-up. Please arrange follow-up with gastroenterology, regarding recurrent pancreatitis Please arrange follow-up with [facility] for severe anxiety Discharge Attestations Time Spent in Discharge Care*: greater than 30 min Status at Discharge: Cognitive status at discharge: cognitively intact, Behavioral status at discharge: cooperative, Quality Metrics Clinical Quality Measures [ Acute Myocardial Infaction { Clinical Trial Participant: No; Contraindication to aspirin: Other (Plavix initiated); Contraindication to statin: None; Statin prescribed; Contraindication to PCI: Intervention not indicated;}] Coding Level of Care Code 19612 Total time (in minutes) for Discharge: 57 Diagnoses Elevated troponin R79.89 HOCM (hypertrophic obstructive cardiomyopathy) I42.1 Acute pancreatitis, unspecified complication status, unspecified pancreatitis type K85.90 Acute pancreatitis complication: unspecified Pancreatitis type: unspecified pancreatitis type Accelerated hypertension I10 Type 2 diabetes mellitus with other specified complication, with long-term current use of insulin E11.69; Z79.4 Diabetes mellitus complication status: with other specified complication Diabetes mellitus detention insulin use: with meterman use Aortic valve, bicuspid Q23.1 Time Spent (min) 57
--- NOTE | 2024-04-27 09:35 | P.PN_ITS ---
Subjective 2 Subjective: Patient is feeling okay. Blood pressure seems to be getting better. She still has some chest wall pain. Seems to be ambulating fairly well on telemetry. Medications: Medication Review Details: Current Medications Apixaban (Apixaban 5 Mg Tablet) 5 mg PO BID@0900,2100 [facility] Last Admin: 04/27/24 08:11 Dose: 5 mg Atorvastatin Calcium (Atorvastatin 40 Mg Tablet) 40 mg PO BEDTIME [facility] Last Admin: 04/26/24 21:39 Dose: 40 mg Bisacodyl (Bisacodyl 10 Mg Supp) 10 mg SD DAILY PRN PRN Reason: CONSTIPATION Clopidogrel Bisulfate (Clopidogrel 75 Mg Tablet) 75 mg PO DAILY [facility] Last Admin: 04/27/24 08:09 Dose: 75 mg Fluticasone Propionate (Fluticasone Nasal [employer] 16gm Btl) 2 spray NASAL DAILY [facility] Last Admin: 04/27/24 08:12 Dose: 2 spray Glucagon (Glucagon 1 Mg/Ml Kit 1 Ml) 1 mg IM ONCE PRN; Protocol PRN Reason: Adult Acute Hypoglycemia Nursing Prot. Dextrose (D5w) 500 mls @ 0 mls/hr IV ONCE PRN; Protocol PRN Reason: Adult Acute Hypoglycemia Prot Dextrose (D10w) 125 mls @ 750 mls/hr IV PRN PRN; Protocol PRN Reason: Adult Acute Hypoglycemia Nursing Protocol Dextrose (D10w) 250 mls @ 1,000 mls/hr IV PRN PRN; Protocol PRN Reason: Adult Acute Hypoglycemia Nursing Protocol Insulin Glargine (Insulin Glargine 100 Units/1 Ml) 2 unit SUBCUT BID [facility] Last Admin: 04/27/24 08:25 Dose: 2 unit Insulin Human Lispro (Insulin Lispro 100 Unit/1 Ml) 0 unit SUBCUT Q6H [facility]; Protocol Last Admin: 04/27/24 06:01 Dose: Not Given Isosorbide Mononitrate (Isosorbide Mononitrate Er 30 Mg Tablet) 30 mg PO DAILY [facility] Last Admin: 04/27/24 08:10 Dose: 30 mg Levetiracetam (Levetiracetam 500 Mg Tablet) 1,250 mg PO BID [facility] Last Admin: 04/27/24 08:07 Dose: 1,250 mg Lorazepam (Lorazepam 2 Mg/Ml Inj 1 Ml) 1 mg IVP Q4H PRN PRN Reason: ANXIETY Last Admin: 04/27/24 08:18 Dose: 1 mg Metoclopramide HCl (Metoclopramide 5 Mg/Ml Sdv 2 Ml) 5 mg IVP Q6H PRN PRN Reason: NAUSEA AND VOMITING Last Admin: 04/26/24 09:38 Dose: 5 mg Morphine Sulfate (Morphine Er (12 Hr) 30 Mg Tablet) 30 mg PO Q12H [facility] Last Admin: 04/27/24 08:08 Dose: 30 mg Morphine Sulfate (Morphine 4 Mg/Ml Sdv 1 Ml) 2 mg IVP Q4H PRN PRN Reason: SEVERE PAIN Non-Formulary Medication (Brivaracetam [Briviact]) 25 mg PO DAILY [facility] Last Admin: 04/27/24 08:12 Dose: 25 mg Ondansetron HCl (Ondansetron 2 Mg/Ml Sdv 2 Ml) 4 mg IVP Q6H PRN PRN Reason: NAUSEA AND VOMITING Last Admin: 04/27/24 08:18 Dose: 4 mg Oxycodone HCl (Oxycodone 5 Mg Ir Tab/Cap) 5 mg PO Q4H PRN PRN Reason: MODERATE PAIN Last Admin: 04/27/24 00:53 Dose: 5 mg Potassium Chloride (Potassium Chloride Er 20 Meq Tablet) 20 meq PO DAILY [facility] Last Admin: 04/27/24 08:11 Dose: 20 meq Propranolol HCl (Propranolol 20 Mg Tablet) 20 mg PO TID [facility] Last Admin: 04/27/24 08:10 Dose: 20 mg Sodium Chloride (Saline Nasal [employer] 44ml Btl) 1 spray NASAL PRN PRN PRN Reason: DRYNESS Tizanidine HCl (Tizanidine 4 Mg Tablet) 4 mg PO TID PRN PRN Reason: MUSCLE SPASMS Last Admin: 04/27/24 02:35 Dose: 4 mg Vitals/I&O/Wt Last Vital Signs Temp 98.1 F 04/27/24 07:03 Pulse 81 04/27/24 07:03 Resp 21 H 04/27/24 08:08 BP 110/59 04/27/24 07:03 Pulse Ox 96 04/27/24 08:08 O2 Del Method Room Air 04/27/24 07:03 04/26/24 04/27/24 04/27/24 22:59 06:59 14:59 Intake Total 490 / 2952.5 120 / 3072.5 Output Total 1000 / 2000 100 / 100 Balance 490 / 1952.5 -880 / 1072.5 -100 / -100 Weight last 48 hrs Weight 156 lb 12.8 oz Weight 156 lb 3 oz Physical Exam 2 Narrative: GENERAL: The patient is alert and oriented times three. Continues to complain about abdominal pain HEENT: No significant pallor, icterus or lymphadenopathy.Oral cavity: There are no mucous membrane lesions. NECK: Trachea appears to be central. No masses noted. No JVD or thyromegaly appreciated. RESPIRATORY: Chest is symmetrical. No intercostals muscle retraction or any accessory muscle activation. There is no chest wall tenderness. Breath sounds are heard bilaterally. No rales or rhonchi heard. No evidence of any consolidation. BREASTS: Deferred. HEART: The heart sounds are normal. No S3 or S4. No significant murmurs. No pericardial rub ABDOMEN: Minimal tenderness in the left upper quadrant. No organomegaly appreciated. Bowel sounds are normally heard. : Deferred. RECTAL: Deferred. LYMPHATIC: No lymphadenopathy noted in the neck. EXTREMITIES: No edema or cyanosis. MUSCULOSKELETAL: No acute joint deformities or swelling SKIN: There are no significant rashes or ecchymosis NEUROPSYCHIATRIC: Patient is complaining about pain. Appears very uncomfortable, extremely nervous. Urinary Catheter Management: [place]: Cath Placed During This Visit: yes, but has since been removed by the nurse Reason for Continuing Indwelling Catheter: Decision to DC Catheter Urinary Catheter Date of Insertion: 04/16/24 Urinary Catheter Time of Insertion: 18:58 Date Urinary Catheter Removed: 04/26/24 Time Urinary Catheter Discontinued: 11:00 Data 04/27/24 04:30 04/27/24 04:30 Other Labs: Laboratory Last Values WBC 7.52 10^3/uL (3.29-11.43) 04/27/24 04:30 RBC 4.23 10^6/uL (3.85-5.65) 04/27/24 04:30 Hgb 11.70 g/dL (11.27-16.99) 04/27/24 04:30 Hct 36.7 % (36-47) 04/27/24 04:30 MCV 86.8 fl (85-98) 04/27/24 04:30 MCH 27.7 pg (27-33) 04/27/24 04:30 MCHC 31.9 g/dL (30-55) 04/27/24 04:30 RDW 15.8 % (12.1-15.1) H 04/27/24 04:30 Plt Count 275 10^3/cmm (157-399) 04/27/24 04:30 MPV 10.5 fL (7.4-10.4) H 04/27/24 04:30 Neut % (Auto) 33.5 % 04/27/24 04:30 Lymph % (Auto) 48.0 % 04/27/24 04:30 [place] % (Auto) 14.1 % 04/27/24 04:30 Eos % (Auto) 1.3 % 04/27/24 04:30 Baso % (Auto) 1.1 % 04/27/24 04:30 Neut # (Auto) 2.52 10^3/uL (1.8-7.7) 04/27/24 04:30 Lymph # (Auto) 3.6 10^3/uL (0.8-4.8) 04/27/24 04:30 [place] # (Auto) 1.1 10^3/uL (0.2-0.9) H 04/27/24 04:30 Eos # (Auto) 0.1 10^3/uL (0.0-0.8) 04/27/24 04:30 Baso # (Auto) 0.1 10^3/uL (0.0-0.1) 04/27/24 04:30 Nucleated RBC % (auto) 0 % 04/27/24 04:30 Total Counted 100 (0-100) 04/26/24 04:58 Atypical Lymphs % 8.0 % (0-5) H 04/26/24 04:58 Absolute Neutrophils 3.8 10^3/cmm (1.4-6.5) 04/26/24 04:58 Segmented Neutrophils 40 % 04/26/24 04:58 Abs Segm Neuts (Man) 3.8 10/cmm (1.6-7.1) 04/26/24 04:58 Band Neutrophils 0.0 % 04/26/24 04:58 Abs Band Neuts (Man) 0.0 10^3/cmm (0.0-1.2) 04/26/24 04:58 Absolute Lymphocytes 4.6 10^3/cmm (1.2-3.4) H 04/26/24 04:58 Lymphocytes (Manual) 41 % 04/26/24 04:58 Monocytes (Manual) 11.0 % 04/26/24 04:58 Absolute Monocytes 1.0 10^3/cmm (0.1-0.6) H 04/26/24 04:58 Eosinophils (Manual) 0 % 04/26/24 04:58 Absolute Eosinophils 0.0 10^3/cmm (0.0-0.7) 04/26/24 04:58 Basophils (Manual) 0.0 % 04/26/24 04:58 Absolute Basophils 0.0 10^3/cmm (0.0-0.2) 04/26/24 04:58 Nucleated RBCs 1.0 /100WBC (0-1) 04/26/24 04:58 Nucleated RBCs # 0.0 /100WBC 04/27/24 04:30 Platelet Estimate Normal (Normal) 04/26/24 04:58 APTT 27.7 SECONDS (23.9-36.7) 04/25/24 13:23 Sodium 141 mmol/L (136-145) 04/27/24 04:30 Potassium 3.8 mmol/L (3.5-5.1) 04/27/24 04:30 Chloride 104 mmol/L (98-107) 04/27/24 04:30 Carbon Dioxide 27 mmol/L (22-29) 04/27/24 04:30 Anion Gap 13.8 (5-19) 04/27/24 04:30 BUN 4 mg/dL (6-20) L 04/27/24 04:30 Creatinine 0.4 mg/dL (0.5-0.9) L 04/27/24 04:30 GFR Calculation 173.4 mL/min (90-130) H 04/27/24 04:30 Glucose 117 mg/dL (65-115) H 04/27/24 04:30 POC Glucose 118 mg/dL (70-110) H 04/27/24 05:30 Calculated Osmolality 290 mOsm/kg (285-295) 04/27/24 04:30 Lactic Acid 5.5 mmol/L (0.5-2.2) H* 04/16/24 11:30 Lactic Acid (Sepsis) 4.2 mmol/L (0.5-2.2) H* 04/16/24 14:10 Calcium 8.7 mg/dL (8.5-10.5) 04/27/24 04:30 Phosphorus 1.6 mg/dL (2.5-4.5) L 04/17/24 02:57 Magnesium 1.7 mg/dL (1.7-2.3) 04/27/24 04:30 Total Bilirubin 0.5 mg/dL (0.15-1.2) 04/27/24 04:30 AST 25 U/L (0-32) 04/27/24 04:30 ALT 8 U/L (0-33) 04/27/24 04:30 Alkaline Phosphatase 159 U/L (35-105) H 04/27/24 04:30 Creatine Kinase 91 U/L (26-192) 04/20/24 04:25 Troponin T Baseline 16 ng/L (0-10) H 04/16/24 08:56 Troponin T 120 Minute 71.40 ng/L (0-10) H 04/16/24 11:30 Delta Troponin T 55.40 ABS# (0-10) H* 04/16/24 11:30 Troponin T Hi Sens 6Hr 148.9 ng/L (0-10) H 04/16/24 14:10 Troponin T Hi Sens 6Hr Delta 132.9 ng/L (0-12) H* 04/16/24 14:10 NT-Pro-B Natriuret Pep 1894 pg/mL (0-125) H 04/16/24 08:56 Total Protein 6.0 g/dL (6.6-8.7) L 04/27/24 04:30 Albumin 3.1 g/dL (3.5-5.2) L 04/27/24 04:30 Globulin 2.9 g/dL (1.3-4.6) 04/27/24 04:30 Triglycerides 132 mg/dL (0-150) 04/16/24 08:56 Lipase 19 U/L (13-60) 04/22/24 04:16 HCG, Qual Negative (Negative) 04/24/24 04:57 Urine Color Red (Yellow) A 04/20/24 11:52 Urine Appearance Cloudy (CLEAR) A 04/20/24 11:52 Urine pH 8 (5-7) H 04/20/24 11:52 Ur Specific [place] 1.010 (1.005-1.030) 04/20/24 11:52 Urine Protein Neg (Negative) 04/20/24 11:52 Urine Glucose (UA) 2+ (Normal) H 04/20/24 11:52 Urine Ketones Negative (Negative) 04/20/24 11:52 Urine Blood 3+ (Negative) H 04/20/24 11:52 Urine Nitrate Negative (Negative) 04/20/24 11:52 Urine Bilirubin Neg (Negative) 04/20/24 11:52 Urine Urobilinogen Norm mg/dL (Negative) 04/20/24 11:52 Ur Leukocyte Esterase Negative (Negative) 04/20/24 11:52 Urine RBC 80-100 /hpf (0-2) H 04/20/24 11:52 Urine WBC 10-15 /hpf (0-5) H 04/20/24 11:52 Ur Squamous Epith Cells Rare /hpf (0-5) 04/20/24 11:52 Amorphous Sediment Not Reportable 04/20/24 11:52 Urine Bacteria Trace /hpf (NONE) 04/20/24 11:52 Serum Ketones Negative (Negative) 04/16/24 08:56 C. difficile (PCR) Negative (Negative) 04/22/24 17:20 Coronavirus 229E (PCR) Not detected (NOT DETECT) 04/16/24 07:44 Hepatitis A IgM Ab Non-reactive (Nonreactive) 04/16/24 14:10 Hep Bs Antigen Non-reactive (Nonreactive) 04/16/24 14:10 Hep B Core IgM Ab Non-reactive (Nonreactive) 04/16/24 14:10 Hepatitis C Antibody Non-reactive (Nonreactive) 04/16/24 14:10 SARS-CoV-2 (PCR) Not detected (NOT DETECT) 04/16/24 07:44 A&P Assessment and plan (1) Elevated troponin: Possibly due to non-ST elevation myocardial infarction. Cardiac catheterization revealed a high-grade lesion is a small obtuse marginal branch of the circumflex artery. Based on the angiogram findings, it was opted to treat her medically. (2) HOCM (hypertrophic obstructive cardiomyopathy): Resting gradient across the LV outflow tract was found to be around 25 millimeters of mercury, by cardiac catheterization. Will continue on the current treatment (3) Acute pancreatitis: Clinically has significant improvement. Qualifiers: Acute pancreatitis complication: unspecified Pancreatitis type: u nspecified pancreatitis type Qualified Code(s): K85.90 - Acute pancreatitis without necrosis or infection, unspecified (4) Accelerated hypertension: Most likely this patient may have a secondary hypertension. The urine studies are pending. It is possible that the patient may have a hyperfunctioning adrenal tumor. May gradually increase the dose of the [id number]. (5) DM2 (diabetes mellitus, type 2): Management as per the primary. Qualifiers: Diabetes mellitus blower room attendant insulin use: with fdc use Diabetes mellitus complication status: with other specified complication Qualified Code(s): E11.69 - Type 2 diabetes mellitus with other specified complication; Z79.4 - resin remover (current) use of insulin (6) Aortic valve, bicuspid: Patient did not have any significant stenosis across aortic valve, during the cardiac catheterization. Plan Other problems are History of seizure disorder Anxiety disorder Hypokalemia, currently normokalemic Multiple electrolyte imbalance, fairly corrected at this point Nausea and vomiting, has significant improvement Leukocytosis, back to normal. Consider anti-inflammatory medication for the chest wall pain. Optimize the beta-blockers for the blood pressure. Consider endocrinology referral Attestations 2 Medical Necessity Statement*: Possible discharge home today Appointment to [facility] in 1 to 2 weeks, to see the nurse practitioner Coding Level of Care Code 63983 Diagnoses Elevated troponin R79.89 HOCM (hypertrophic obstructive cardiomyopathy) I42.1 Acute pancreatitis, unspecified complication status, unspecified pancreatitis type K85.90 Acute pancreatitis complication: unspecified Pancreatitis type: unspecified pancreatitis type Accelerated hypertension I10 Type 2 diabetes mellitus with other specified complication, with long-term current use of insulin E11.69; Z79.4 Diabetes mellitus blower room attendant insulin use: with blower room attendant use Diabetes mellitus complication status: with other specified complication Aortic valve, bicuspid Q23.1
[2024-04-27 10:38] LABS: Glucose Point of Care 127 mg/dL (70-110)
--- NOTE | 2024-04-27 12:53 | PC.NURSE ---
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
[2024-04-30 16:38] LABS: Dopamine Level 37 pg/mL; Epinephrine Level 77 pg/mL; Norepinephrine Level 1693 pg/mL; Total Catecholamines 1807 pg/mL
[2024-04-30 17:04] LABS: Calculated Total (E+NE) 77 mcg/24 h (26-121)
== END 2024-04-27 12:55 | disposition home or self-care (01) | DRG 438 ==
LOC: ER 10:03 → ICU 12:55 → CSU 04-20 14:08 → ICU 04-25 16:11 → CSU 04-26 18:11
PROVIDERS: Internal Medicine; Internal Medicine Cardiovascular Disease; Admitting Provider Internal Medicine; Emergency Provider Family Medicine; PCP Family Medicine; Visit Provider Internal Medicine
PROC: 4A023N7 Measurement of Cardiac Sampling and Pressure, Left Heart, Percutaneous Approach (ICD-10-PCS; principal; 2024-04-25 07:00)
DX: K85.90 Acute pancreatitis without necrosis or infection, unspecified (principal); I21.4 Non-ST elevation (NSTEMI) myocardial infarction; E87.0 Hyperosmolality and hypernatremia; I42.1 Obstructive hypertrophic cardiomyopathy; E87.20 Acidosis, unspecified; E87.29 Other acidosis; I48.20 Chronic atrial fibrillation, unspecified; Q23.1 Congenital insufficiency of aortic valve; R65.10 Systemic inflammatory response syndrome (SIRS) of non-infectious origin without acute organ dysfunction; E11.69 Type 2 diabetes mellitus with other specified complication; E27.9 Disorder of adrenal gland, unspecified; I10 Essential (primary) hypertension; G40.909 Epilepsy, unspecified, not intractable, without status epilepticus; G89.29 Other chronic pain; E87.8 Other disorders of electrolyte and fluid balance, not elsewhere classified; I95.9 Hypotension, unspecified; K59.00 Constipation, unspecified; K44.9 Diaphragmatic hernia without obstruction or gangrene; Z79.01 Long term (current) use of anticoagulants; Z79.4 Long term (current) use of insulin; E83.42 Hypomagnesemia; E87.6 Hypokalemia; E11.649 Type 2 diabetes mellitus with hypoglycemia without coma; R31.9 Hematuria, unspecified; R19.7 Diarrhea, unspecified; I16.0 Hypertensive urgency; F41.9 Anxiety disorder, unspecified; I25.10 Atherosclerotic heart disease of native coronary artery without angina pectoris
CPT/HCPCS: 36415; 36416; 36556; 36592; 51702; 71045; 74177; 76705; 78452; 80048; 80053; 80074; 81001; 81015; 82009; 82384; 82550; 82962; 83605; 83690; 83735; 83880; 84100; 84478; 84484; 84703; 85007; 85014; 85018; 85025; 85347; 85730; 87040; 87086; 87493; 87635; 93005; 93017; 93308; 93458; 93571; 96361; 96372; 96374; 96375; 96376; 97116; 97161; 97530; 99152; 99153; 99285; 99291; 99292; A9500; C1760; C1769; C1887; C1894; G0269; J0280; J0360; J0696; J1170; J1644; J1650; J1815; J1953; J2060; J2250; J2270; J2405; J2543; J2550; J2765; J2785; J3010; J3475; J3480; J3490; J7030; J7040; J7799; Q0163; Q9967

== ENCOUNTER → 2024-05-15 13:30 | Outpatient (BNVA) | payer MEDICARE, MEDICAID, SELFPAY | PROVIDERS: PCP Family Medicine; Visit Provider Nurse Practitioner Family | DX: I25.10 Atherosclerotic heart disease of native coronary artery without angina pectoris (principal); I10 Essential (primary) hypertension | CPT/HCPCS: 99213 ==

== ENCOUNTER 2024-07-01 01:27 | Inpatient (IN) | payer MEDICARE, MEDICAID, SELFPAY ==
[2024-07-01] VITALS (29 sets, daily range): BP systolic 119–155; BP diastolic 45–131; PULSE 0–124; RESP 14–35; TEMP 36.8–37.4; O2SAT 94–100; BMI 27.7
--- NOTE | 2024-07-01 01:53 | XRR_ITS ---
PROCEDURE INFORMATION: Exam: XR Chest Exam date and time: 07/01/2024 3:00 AM Age: 44 years old Clinical indication: Chest wall pain; Additional info: Cp TECHNIQUE: Imaging protocol: Radiologic exam of the chest. Views: 1 view. COMPARISON: CR XR chest 1V [id number] 04/16/2024 12:06 PM FINDINGS: Lungs: Unremarkable. No consolidation. Pleural spaces: Unremarkable. No pleural effusion. No pneumothorax. Heart/Mediastinum: There may be mediastinal air outlining the aortic knob and upper heart border on the left. This is not definite. Heart size and mediastinal contours are otherwise normal. Bones/joints: Unremarkable. XR/XR chest 1V portable [id number] IMPRESSION: 1. Possible mediastinal air. This is not definite. CT of the chest may add additional information if desired.
--- NOTE | 2024-07-01 01:54 | ECG_ITS ---
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 Measurements Intervals [place] Rate: 91 P: 41 [place]: 127 QRS: -8 QRSD: 88 T: 84 QT: 355 QTc: 438 Interpretive Statements SINUS RHYTHM ANTERIOR MYOCARDIAL INFARCTION , PROBABLY OLD [40+ ms Q WAVE AND/OR ST/T ABNORMALITY IN V3/V4] INFERIOR MYOCARDIAL INFARCTION , PROBABLY OLD [40+ ms Q WAVE AND/OR ST/T ABNORMALITY IN II/aVF] Compared to ECG 04/25/2024 14:18:08 Short [place] interval no longer present T-wave abnormality no longer present Possible ischemia no longer present Myocardial infarct finding still present Electronically Signed On 07-02-2024 18:49:12 CDT by Rahul Zambrano M.D. [id number]
--- NOTE | 2024-07-01 03:38 | PC.NURSE ---
Dr Alejo gave this nurse verbal order for IM Dilaudid and Zofran.
--- NOTE | 2024-07-01 03:54 | ECG_ITS ---
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 Measurements Intervals [place] Rate: 94 P: 44 DE: 131 QRS: -6 QRSD: 84 T: 129 QT: 346 QTc: 435 Interpretive Statements SINUS RHYTHM ANTERIOR MYOCARDIAL INFARCTION , PROBABLY OLD [40+ ms Q WAVE AND/OR ST/T ABNORMALITY IN V3/V4] INFERIOR MYOCARDIAL INFARCTION , PROBABLY OLD [40+ ms Q WAVE AND/OR ST/T ABNORMALITY IN II/aVF] Compared to ECG 07/01/2024 02:16:26 No significant changes Electronically Signed On 07-02-2024 18:58:06 CDT by Rahul Zambrano M.D. [email or web address]
[2024-07-01] MEDS: HYDROmorphone 1 mg/mL INJ 1 mL 2 MG IM (04:03)
[2024-07-01] MEDS: ondansetron 2 mg/ML SDV 2 mL 4 MG IM (04:03)
--- NOTE | 2024-07-01 04:16 | PC.NURSE ---
Multiple ultrasound IV attempts were made by the charge nurse as well as nurses off the unit.
[2024-07-01 04:41] LABS: Basophils % 0.1 %; Hematocrit 36.7 % (36-47); Lymphocytes # 3.6 10^3/uL (0.8-4.8); Lymphocytes % 25.4 %; Mean Corpuscular HGB Conc 35.1 g/dL (30-55); Mean Corpuscular Hemoglobin 28.9 pg (27-33); Mean Corpuscular Volume 82.3 fl (85-98); Monocytes # 1.2 10^3/uL (0.2-0.9); Monocytes % 8.2 %; Neutrophils # 9.12 10^3/uL (1.8-7.7); Neutrophils % 64.7 %; Nucleated Red Blood Cells # 0.3 /100WBC; Nucleated Red Blood Cells % 2.3 %; Platelet Count 311 10^3/cmm (157-399); Red Blood Count 4.46 10^6/uL (3.85-5.65); Red Cell Distribution Width 17.6 % (12.1-15.1)
--- NOTE | 2024-07-01 04:41 | ED_ITS ---
Documented by User: Vishnu Alejo, DO 07/01/24 17:12 HPI - Nausea/Vomiting/Diarrhea 2 General: Chief complaint: Nausea/Vomiting/Diarrhea Stated complaint: N/V Time Seen by Provider: 07/01/24 02:47 History of Present Illness: 44-year-old female well-known to the [facility]. She presents with abdominal pain, located in the upper abdomen wrapping around her abdomen. She has been vomiting she says today. She is generally weak. She denies fever. She has been able to hold down her blood pressure medication, but no food she says. Related Data Home Medications Medication Instructions Recorded Confirmed apixaban 5 mg tablet (Eliquis) 5 mg PO BID 04/16/24 06/15/24 Previous Rx's Medication Instructions Recorded STANDARD WHEELCHAIR #1 ea 05/29/21 blood-glucose meter (OneTouch #1 ea 12/08/22 Ultra2 Meter) lancets (OneTouch UltraSoft #200 ea 12/08/22 Lancets) lactulose 10 gram/15 mL (15 mL) 10 g (15 mL) PO DAILY PRN 12/22/22 oral solution constipation #600 mL shower chair #1 ea 04/28/23 ASO to the right #1 ea 06/13/23 lancets 33 gauge (OneTouch Delica #100 ea 10/17/23 Plus Lancet) Pen Myton #1 ea 04/12/24 blood sugar diagnostic (OneTouch #200 strips 04/12/24 Ultra Test strips) levetiracetam 500 mg tablet 1,250 mg (2.5 x 500 mg) PO BID 60 04/12/24 days #300 tabs insulin glargine 100 unit/mL (3 2 unit (0.02 mL) SUBCUT BID #15 mL 04/27/24 mL) subcutaneous pen (Lantus Solostar U-100 Insulin) lorazepam 0.5 mg tablet (Ativan) 0.5 mg PO TID PRN anxiety #20 tabs 04/27/24 naloxone 4 mg/actuation nasal 4 mg intranasal Q2M PRN opioid 04/27/24 spray (Narcan) overdose #2 ea tizanidine 4 mg tablet 8 mg (2 x 4 mg) PO TID PRN muscle 05/01/24 spasticity 30 days #180 tabs brivaracetam 25 mg tablet 25 mg PO DAILY #60 tabs 05/14/24 (Briviact) atorvastatin 40 mg tablet 40 mg PO BEDTIME #90 tabs 05/15/24 clopidogrel 75 mg tablet 75 mg PO DAILY #90 tabs 05/15/24 isosorbide mononitrate 30 mg 30 mg PO DAILY #90 tabs 05/15/24 tablet,extended release 24 hr spironolactone 25 mg tablet 25 mg PO DAILY #60 tabs 05/31/24 pantoprazole 40 mg tablet,delayed See Rx Instructions .Route 06/13/24 release .COMPLEX #60 tabs propranolol 20 mg tablet 20 mg PO TID #90 tabs 06/14/24 [id number] 1 cap PO TIDWMEAL #90 caps 06/15/24 40,000-126,000-168,000 unit capsule, delay rel (Zenpep) oxycodone 5 mg tablet 5 mg PO Q4H PRN Moderate Pain 5 06/15/24 days #20 tabs promethazine 25 mg tablet 25 mg PO TID PRN nausea and 06/18/24 vomiting #60 tabs morphine 30 mg tablet,extended 30 mg PO Q12H 1 month #60 tabs 06/28/24 release Allergies Allergy/AdvReac Type Severity Reaction Status Date / Time canagliflozin [From Invokana] Allergy Severe abdominal Verified 06/28/24 07:49 pain enalaprilat Allergy Severe tongue Verified 06/28/24 07:49 swelling aspirin Allergy Unknown Verified 06/28/24 07:49 ketorolac [From Toradol] Allergy Unknown Verified 06/28/24 07:49 nicardipine Allergy ALGY-Difficulty Verified 06/28/24 07:49 Breathing tramadol [From Ultram] Allergy Unknown Verified 06/28/24 07:49 PFSH ED 2 PFSH: Medical History Atrial fibrillation with RVR Bicuspid aortic valve Aortic regurgitation Labile hypertension Exocrine pancreatic insufficiency GI bleed Adrenal mass Chronic pancreatitis Epilepsy Primary osteoarthritis Diabetes Essential (primary) hypertension 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 Chronic pain of lower extremity, bilateral Congenital hip dysplasia Surgical History History of knee replacement procedure of right knee done twice History of foot surgery closing wedge 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 History of cholecystectomy History of D&C History of bilateral knee replacement Family History Grandmother Cancer Lung disease Stroke Mother Lung disease Other Atrial fibrillation Congestive heart failure (CHF) Social History Smoking and tobacco/nicotine status: never used tobacco/nicotine Alcohol intake: never Substance/Drug Use: never Household members: spouse Housing: House Marital status: Current occupational status: disabled Female Reproductive History: Date of last menstrual period: 05/31/24 Physical Exam 2 Const: GENERAL APPEARANCE: cooperative, ill appearing, frail appearing (for age) and other (pale); not well hydrated HENMT: COMMON NORMALS: normocephalic, atraumatic and Normal external nose present HEAD & SCALP: normocephalic and atraumatic FACE & SINUS: normal facial exam and face symmetric NOSE: Normal external nose present Eye: COMMON NORMALS: Equal, round and reactive pupils present and EOMs intact bilaterally PUPIL: Yes Equal, round and reactive pupils present Neck/C-Spine: GENERAL: Yes trachea midline Chest: CHEST: Yes Symmetrical chest wall rise Resp: COMMON NORMALS: normal respiratory effort, No retractions, No use of accessory muscles and clear to auscultation bilaterally AUSCULTATION: clear to auscultation bilaterally Cardio: COMMON NORMALS: regular rhythm RATE: tachycardic RHYTHM: regular rhythm GI: INSPECTION: Yes normal to inspection PALPATION: Yes Firmness to palpation present (GI) and Yes Tenderness to palpation present (GI) Extremity: COMMON NORMALS: no pedal edema Neuro: KELLY COMA SCALE: document GCS findings Epes coma scale eye opening: Spontaneous Epes coma scale verbal response: Orientated Kelly coma scale motor response: Obey commands Epes coma scale total score: 15 S ENSORY EXAM: Yes extremities (intact) Psych: COMMON NORMALS: speech normal SPEECH: Yes normal speech Skin: COMMON NORMALS: no rashes or lesions noted GENERAL SKIN EXAM: no rashes or lesions noted Procedures Central Line Placement Right IJ: Time Out Performed: Yes Patient Placed on Monitor/Pulse Ox: Yes MD Prep: mask, gown and gloves Central Line Prep: Chlorhexidine scrub Local Anesthetic: lidocaine 1% Amount of anesthesia used (mL): 3 Ultrasound Used for Placement: Yes Central Line Lumen Inserted: triple Post Procedure: sutured in place, good blood return, all ports aspirated, flushed, capped and sterile dressing applied Post Procedure X-Ray: tip of catheter in good position and no pneumothorax seen Patient Tolerated Procedure: well and no complications Complications: none Course 2 Vital Signs: Vital signs: Vital Signs Temperature 99.3 F 07/01/24 12:30 Pulse Rate 108 H 07/01/24 16:30 Respiratory Rate 19 H 07/01/24 16:30 Blood Pressure 119/96 07/01/24 13:30 Pulse Oximetry 95 07/01/24 16:30 Oxygen Delivery Me thod Nasal Cannula 07/01/24 16:30 Oxygen Flow Rate 3 07/01/24 16:30 Fraction of Inspir ed Oxygen 35 07/01/24 16:00 MDM - Nausea/Vomiting/Diarrhea Medical Decision Making Eleanor is only mildly hypertensive here. Temperature is 99.1. Other laboratory is normal. She has been a difficult patient, as she essentially has no peripheral veins that are accessible. Multiple nurses have tried, using ultrasound, to look for an accessible veins without success. She has been given intramuscular pain and nausea medication. We were able to obtain laboratory. Her white blood cell count is 14. Sodium is 125, bicarbonate is 19. Chest x-ray shows potential air in the mediastinum. CT of the chest abdomen pelvis has been ordered. IV access has not been possible in this patient. With abnormal laboratory, abnormal x-ray, IV access is paramount. Central line placed by me without complication. She will be checked out to the oncoming physician at shift change pending results. Central line appeared mildly deep by chest X-ray. It was retracted, and it's confirmed by CT later to be in the right atrium and good position. It flushes well. No mediastinal layer by CT. She has pancolitis present on CT. Her delta troponin is somewhat elevated. CRP is mildly elevated. Lipase is normal period she'll be admitted for hyponatremia, pancolitis, dehydration, And potential non stemi. Antibiotics were given in the ER as well as fluid bolus once IV was able to be established. Lab Data 07/01/24 11:30 07/01/24 11:30 Radiology Impressions Chest/Abdomen/Pelvis CT 07/01/24 06:18 IMPRESSION: 1. Mild aneurysmal dilatation involving the ascending aorta. 2. Small left pleural effusion. 3. No mediastinal air identified. IMPRESSION: 1. Pancolitis. 2. Fecal stasis. 3. Small volume ascites. COMMENTS: Consistent with the [employer]'s Incidental Findings Committee white paper (J Am Tammy Radiol 2018): Any incidental renal lesion less than 1 cm or classified as too small to characterize, or any incidental cystic renal lesion characterized as simple-appearing, is likely benign. No follow-up imaging is recommended for these lesions per consensus recommendations based on imaging criteria. Chest X-Ray 07/01/24 12:02 IMPRESSION: No acute findings. Laboratory Results WBC 14.10 10^3/uL (3.29-11.43) H 07/01/24 04:36 RBC 4.46 10^6/uL (3.85-5.65) 07/01/24 04:36 Hgb 12.90 g/dL (11.27-16.99) 07/01/24 04:36 Hct 36.7 % (36-47) 07/01/24 04:36 MCV 82.3 fl (85-98) L 07/01/24 04:36 MCH 28.9 pg (27-33) 07/01/24 04:36 MCHC 35.1 g/dL (30-55) 07/01/24 04:36 RDW 17.6 % (12.1-15.1) H 07/01/24 04:36 Plt Count 311 10^3/cmm (157-399) 07/01/24 04:36 MPV 11.0 fL (7.4-10.4) H 07/01/24 04:36 Neut % (Auto) 64.7 % 07/01/24 04:36 Lymph % (Auto) 25.4 % 07/01/24 04:36 [place] % (Auto) 8.2 % 07/01/24 04:36 Eos % (Auto) 0.0 % 07/01/24 04:36 Baso % (Auto) 0.1 % 07/01/24 04:36 Neut # (Auto) 9.12 10^3/uL (1.8-7.7) H 07/01/24 04:36 Lymph # (Auto) 3.6 10^3/uL (0.8-4.8) 07/01/24 04:36 [place] # (Auto) 1.2 10^3/uL (0.2-0.9) H 07/01/24 04:36 Eos # (Auto) 0.0 10^3/uL (0.0-0.8) 07/01/24 04:36 Baso # (Auto) 0.0 10^3/uL (0.0-0.1) 07/01/24 04:36 Nucleated RBC % (auto) 2.3 % 07/01/24 04:36 Nucleated RBCs # 0.3 /100WBC 07/01/24 04:36 PT 21.80 SECONDS (12.1-14.9) H 07/01/24 04:53 INR 1.83 (0.8-1.2) H 07/01/24 04:53 Sodium 125 mmol/L (136-145) L 07/01/24 04:36 Potassium 5.1 mmol/L (3.5-5.1) 07/01/24 04:36 Chloride 94 mmol/L (98-107) L 07/01/24 04:36 Carbon Dioxide 19 mmol/L (22-29) L 07/01/24 04:36 Anion Gap 17.1 (5-19) 07/01/24 04:36 BUN 17 mg/dL (6-20) 07/01/24 04:36 Creatinine 0.6 mg/dL (0.5-0.9) 07/01/24 04:36 GFR Calculation 108.6 mL/min (90-130) 07/01/24 04:36 Glucose 99 mg/dL (65-115) 07/01/24 04:36 Calculated Osmolality 262 mOsm/kg (285-295) L 07/01/24 04:36 Calcium 6.8 mg/dL (8.5-10.5) L 07/01/24 04:36 Total Bilirubin 1.3 mg/dL (0.15-1.2) H 07/01/24 04:36 AST 38 U/L (0-32) H 07/01/24 04:36 ALT 22 U/L (0-33) 07/01/24 04:36 Alkaline Phosphatase 136 U/L (35-105) H 07/01/24 04:36 Troponin T Baseline < 6 ng/L (0-10) 07/01/24 04:53 Troponin T 120 Minute 19.75 ng/L (0-10) H 07/01/24 08:18 Delta Troponin T 13.17031 ABS# (0-10) H* 07/01/24 08:18 C-Reactive Protein 45.1 mg/L (0.0-4.9) H 07/01/24 04:36 Total Protein 4.5 g/dL (6.6-8.7) L 07/01/24 04:36 Albumin 2.2 g/dL (3.5-5.2) L 07/01/24 04:36 Globulin 2.3 g/dL (1.3-4.6) 07/01/24 04:36 Lipase 7 U/L (13-60) L 07/01/24 04:36 HCG, Qual Negative (Negative) 07/01/24 04:36 All radiology interpretation(s) finalized by discharge Discharge Plan Discharge Patient Disposition: Admitted As Inpatient Admit Provider: Bria Perez Clinical Impression: Colitis, Acute hyponatremia, Acute dehydration Condition: Stable Coding Level of Care Code ED Adult Day Care Worker for Chg Fwd Documented by User: Janae Felipe MD 07/01/24 18:27 HPI - Nausea/Vomiting/Diarrhea 2 General: Chief complaint: Nausea/Vomiting/Diarrhea Stated complaint: N/V Time Seen by Provider: 07/01/24 02:47 Related Data Home Medications Medication Instructions Recorded Confirmed apixaban 5 mg tablet (Eliquis) 5 mg PO BID 04/16/24 06/15/24 Previous Rx's Medication Instructions Recorded STANDARD WHEELCHAIR #1 ea 05/29/21 blood-glucose meter (OneTouch #1 ea 12/08/22 Ultra2 Meter) lancets (OneTouch UltraSoft #200 ea 12/08/22 Lancets) lactulose 10 gram/15 mL (15 mL) 10 g (15 mL) PO DAILY PRN 12/22/22 oral solution constipation #600 mL shower chair #1 ea 04/28/23 ASO to the right #1 ea 06/13/23 lancets 33 gauge (OneTouch Delica #100 ea 10/17/23 Plus Lancet) Pen Myton #1 ea 04/12/24 blood sugar [facility] strips 04/12/24 Ultra Test strips) levetiracetam 500 mg tablet 1,250 mg (2.5 x 500 mg) PO BID 60 04/12/24 days #300 tabs insulin glargine 100 unit/mL (3 2 unit (0.02 mL) SUBCUT BID #15 mL 04/27/24 mL) subcutaneous pen (Lantus Solostar U-100 Insulin) lorazepam 0.5 mg tablet (Ativan) 0.5 mg PO TID PRN anxiety #20 tabs 04/27/24 naloxone 4 mg/actuation nasal 4 mg intranasal Q2M PRN opioid 04/27/24 spray (Narcan) overdose #2 ea tizanidine 4 mg tablet 8 mg (2 x 4 mg) PO TID PRN muscle 05/01/24 spasticity 30 days #180 tabs brivaracetam 25 mg tablet 25 mg PO DAILY #60 tabs 05/14/24 (Briviact) atorvastatin 40 mg tablet 40 mg PO BEDTIME #90 tabs 05/15/24 clopidogrel 75 mg tablet 75 mg PO DAILY #90 tabs 05/15/24 isosorbide mononitrate 30 mg 30 mg PO DAILY #90 tabs 05/15/24 tablet,extended release 24 hr spironolactone 25 mg tablet 25 mg PO DAILY #60 tabs 05/31/24 pantoprazole 40 mg tablet,delayed See Rx Instructions .Route 06/13/24 release .COMPLEX #60 tabs propranolol 20 mg tablet 20 mg PO TID #90 tabs 06/14/24 ngwjvn-vyxciuvz-twusyso 1 cap PO TIDWMEAL #90 caps 06/15/24 40,000-126,000-168,000 unit capsule, delay rel (Zenpep) oxycodone 5 mg tablet 5 mg PO Q4H PRN Moderate Pain 5 06/15/24 days #20 tabs promethazine 25 mg tablet 25 mg PO TID PRN nausea and 06/18/24 vomiting #60 tabs morphine 30 mg tablet,extended 30 mg PO Q12H 1 month #60 tabs 06/28/24 release Allergies Allergy/AdvReac Type Severity Reaction Status Date / Time canagliflozin [From Invokana] Allergy Severe abdominal Verified 06/28/24 07:49 pain enalaprilat Allergy Severe tongue Verified 06/28/24 07:49 swelling aspirin Allergy Unknown Verified 06/28/24 07:49 ketorolac [From Toradol] Allergy Unknown Verified 06/28/24 07:49 nicardipine Allergy ALGY-Difficulty Verified 06/28/24 07:49 Breathing tramadol [From Ultram] Allergy Unknown Verified 06/28/24 07:49 PFSH ED 2 PFSH: Medical History Atrial fibrillation with RVR Bicuspid aortic valve Aortic regurgitation Labile hypertension Exocrine pancreatic insufficiency GI bleed Adrenal mass Chronic pancreatitis Epilepsy Primary osteoarthritis Diabetes Essential (primary) hypertension 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 Chronic pain of lower extremity, bilateral Congenital hip dysplasia Surgical History History of knee replacement procedure of right knee done twice History of foot surgery closing wedge 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 History of cholecystectomy History of D&C History of bilateral knee replacement Family History Grandmother Cancer Lung disease Stroke Mother Lung disease Other Atrial fibrillation Congestive heart failure (CHF) Social History Smoking and tobacco/nicotine status: never used tobacco/nicotine Alcohol intake: never Substance/Drug Use: never Household members: spouse Housing: House Marital status: Current occupational status: disabled Physical Exam 2 Neuro: KELLY COMA SCALE: document GCS findings Kelly coma scale total score: 15 Course 2 Vital Signs: Vital signs: Vital Signs Temperature 99.3 F 07/01/24 12:30 Pulse Rate 108 H 07/01/24 16:30 Respiratory Rate 19 H 07/01/24 16:30 Blood Pressure 119/96 07/01/24 13:30 Pulse Oximetry 95 07/01/24 16:30 Oxygen Delivery Me thod Nasal Cannula 07/01/24 16:30 Oxygen Flow Rate 3 07/01/24 16:30 Fraction of Inspir ed Oxygen 35 07/01/24 16:00 MDM - Nausea/Vomiting/Diarrhea Lab Data 07/01/24 11:30 07/01/24 11:30 Radiology Impressions Chest/Abdomen/Pelvis CT 07/01/24 06:18 IMPRESSION: 1. Mild aneurysmal dilatation involving the ascending aorta. 2. Small left pleural effusion. 3. No mediastinal air identified. IMPRESSION: 1. Pancolitis. 2. Fecal stasis. 3. Small volume ascites. COMMENTS: Consistent with the [place] [employer]'s Incidental Findings Committee white paper (J Am Tammy Radiol 2018): Any incidental renal lesion less than 1 cm or classified as too small to characterize, or any incidental cystic renal lesion characterized as simple-appearing, is likely benign. No follow-up imaging is recommended for these lesions per consensus recommendations based on imaging criteria. Chest X-Ray 07/01/24 12:02 IMPRESSION: No acute findings. Laboratory Results WBC 14.10 10^3/uL (3.29-11.43) H 07/01/24 04:36 RBC 4.46 10^6/uL (3.85-5.65) 07/01/24 04:36 Hgb 12.90 g/dL (11.27-16.99) 07/01/24 04:36 Hct 36.7 % (36-47) 07/01/24 04:36 MCV 82.3 fl (85-98) L 07/01/24 04:36 MCH 28.9 pg (27-33) 07/01/24 04:36 MCHC 35.1 g/dL (30-55) 07/01/24 04:36 RDW 17.6 % (12.1-15.1) H 07/01/24 04:36 Plt Count 311 10^3/cmm (157-399) 07/01/24 04:36 MPV 11.0 fL (7.4-10.4) H 07/01/24 04:36 Neut % (Auto) 64.7 % 07/01/24 04:36 Lymph % (Auto) 25.4 % 07/01/24 04:36 [place] % (Auto) 8.2 % 07/01/24 04:36 Eos % (Auto) 0.0 % 07/01/24 04:36 Baso % (Auto) 0.1 % 07/01/24 04:36 Neut # (Auto) 9.12 10^3/uL (1.8-7.7) H 07/01/24 04:36 Lymph # (Auto) 3.6 10^3/uL (0.8-4.8) 07/01/24 04:36 [place] # (Auto) 1.2 10^3/uL (0.2-0.9) H 07/01/24 04:36 Eos # (Auto) 0.0 10^3/uL (0.0-0.8) 07/01/24 04:36 Baso # (Auto) 0.0 10^3/uL (0.0-0.1) 07/01/24 04:36 Nucleated RBC % (auto) 2.3 % 07/01/24 04:36 Nucleated RBCs # 0.3 /100WBC 07/01/24 04:36 PT 21.80 SECONDS (12.1-14.9) H 07/01/24 04:53 INR 1.83 (0.8-1.2) H 07/01/24 04:53 Sodium 125 mmol/L (136-145) L 07/01/24 04:36 Potassium 5.1 mmol/L (3.5-5.1) 07/01/24 04:36 Chloride 94 mmol/L (98-107) L 07/01/24 04:36 Carbon Dioxide 19 mmol/L (22-29) L 07/01/24 04:36 Anion Gap 17.1 (5-19) 07/01/24 04:36 BUN 17 mg/dL (6-20) 07/01/24 04:36 Creatinine 0.6 mg/dL (0.5-0.9) 07/01/24 04:36 GFR Calculation 108.6 mL/min (90-130) 07/01/24 04:36 Glucose 99 mg/dL (65-115) 07/01/24 04:36 Calculated Osmolality 262 mOsm/kg (285-295) L 07/01/24 04:36 Calcium 6.8 mg/dL (8.5-10.5) L 07/01/24 04:36 Total Bilirubin 1.3 mg/dL (0.15-1.2) H 07/01/24 04:36 AST 38 U/L (0-32) H 07/01/24 04:36 ALT 22 U/L (0-33) 07/01/24 04:36 Alkaline Phosphatase 136 U/L (35-105) H 07/01/24 04:36 Troponin T Baseline < 6 ng/L (0-10) 07/01/24 04:53 Troponin T 120 Minute 19.75 ng/L (0-10) H 07/01/24 08:18 Delta Troponin T 13.39163 ABS# (0-10) H* 07/01/24 08:18 C-Reactive Protein 45.1 mg/L (0.0-4.9) H 07/01/24 04:36 Total Protein 4.5 g/dL (6.6-8.7) L 07/01/24 04:36 Albumin 2.2 g/dL (3.5-5.2) L 07/01/24 04:36 Globulin 2.3 g/dL (1.3-4.6) 07/01/24 04:36 Lipase 7 U/L (13-60) L 07/01/24 04:36 HCG, Qual Negative (Negative) 07/01/24 04:36 Discharge Plan Discharge Patient Disposition: Admitted As Inpatient Admit Provider: Bria Perez Clinical Impression: Colitis, Acute hyponatremia, Acute dehydration Condition: Stable Coding Level of Care Code ED Adult Day Care Worker for Heather Roman
[2024-07-01 05:00] LABS: Alanine Aminotransferase 22 U/L (0-33); Albumin Level 2.2 g/dL (3.5-5.2); Alkaline Phosphatase 136 U/L (35-105); Anion Gap 17.1 (5-19); Aspartate Amino Transferase 38 U/L (0-32); Blood Urea Nitrogen 17 mg/dL (6-20); C Reactive Protein 45.1 mg/L (0.0-4.9); Calcium 6.8 mg/dL (8.5-10.5); Carbon Dioxide 19 mmol/L (22-29); Chloride 94 mmol/L (98-107); Globulin 2.3 g/dL (1.3-4.6); Glomerular Filtration Rate 108.6 mL/min (90-130); Glucose 99 mg/dL (65-115); Lipase 7 U/L (13-60); Osmolality Calculated 262 mOsm/kg (285-295); Potassium 5.1 mmol/L (3.5-5.1); Sodium 125 mmol/L (136-145); Total Bilirubin 1.3 mg/dL (0.15-1.2); Total Protein 4.5 g/dL (6.6-8.7)
[2024-07-01 05:09] LABS: INR 1.83 (0.8-1.2)
[2024-07-01 05:09] LABS: HCG, Serum Qual Negative (Negative)
[2024-07-01 05:17] LABS: Troponin(5th) Baseline < 6 ng/L (0-10)
--- NOTE | 2024-07-01 06:18 | CTR_ITS ---
PROCEDURE INFORMATION: Exam: CT Chest With Contrast; Diagnostic Exam date and time: 07/01/2024 7:13 AM Age: 44 years old Clinical indication: Other: ? Mediastinal air on cxr, abd pain, vomiting, HX pancreatiti TECHNIQUE: Imaging protocol: Diagnostic computed tomography of the chest with contrast. Radiation optimization: All CT scans at this facility use at least one of these dose optimization techniques: automated exposure control; mA and/or kV adjustment per patient size (includes targeted exams where dose is matched to clinical indication); or iterative reconstruction. Contrast material: OMNI 350; Contrast volume: 100 ml; Contrast route: INTRAVENOUS (IV); COMPARISON: CR (CHEST, ) 07/01/2024 6:22 AM RADIATION DOSE METRICS: Total DLP (mGy-cm): 849.9 FINDINGS: Tubes, catheters and devices: There is a central venous catheter with its tip within the right atrium. Lungs: There is minimal compressive atelectasis at the left lung base. No consolidated infiltrates are appreciated. No noncalcified pulmonary nodules or masses are identified. Pleural spaces: There is a small left pleural effusion. Heart: Heart size is normal. There is trace pericardial fluid. Lymph nodes: No enlarged axillary, mediastinal or hilar lymph nodes are identified. No mediastinal air is identified. Vasculature: The ascending aorta is mildly dilated measuring 3.9 cm in maximal dimension. The descending thoracic aorta measures 2.2 cm in size. There is minimal plaque involving the thoracic aorta and coronary vessels. No dissection is appreciated. Bones/joints: Unremarkable. No acute fracture. Soft tissues: Please see report from CT abdomen and pelvic exam performed at same time for findings within the upper abdomen. PROCEDURE INFORMATION: Exam: CT Abdomen And Pelvis With Contrast Exam date and time: 07/01/2024 7:13 AM Age: 44 years old Clinical indication: Other: ? Mediastinal air on cxr, abd pain, vomiting, HX pancreatiti TECHNIQUE: Imaging protocol: Computed tomography of the abdomen and pelvis with contrast. Radiation optimization: All CT scans at this facility use at least one of these dose optimization techniques: automated exposure control; mA and/or kV adjustment per patient size (includes targeted exams where dose is matched to clinical indication); or iterative reconstruction. Contrast material: OMNI 350; Contrast volume: 100 ml; Contrast route: INTRAVENOUS (IV); COMPARISON: CT abdomen pelvis w con* [id number] 04/16/2024 9:58 AM RADIATION DOSE METRICS: Total DLP (mGy-cm): 849.9 FINDINGS: Lungs: Please see report from CT thorax exam performed at same time for findings within the lung bases. Liver: There is diffuse fatty infiltration of the liver. The liver is otherwise normal. Gallbladder and biliary ducts: The gallbladder is surgically absent. Pancreas: Normal. No ductal dilation. Spleen: Normal. No splenomegaly. Adrenal glands: There is a low-density adrenal nodule on the left measuring 1.9 cm in size. The nodule measures less than 10 Hounsfield units in density and likely represents an adenoma. This is unchanged when compared to prior exam. The right adrenal gland is normal. Kidneys and ureters: Tiny benign-appearing renal cyst is noted on the right. The kidneys are otherwise normal. Stomach and bowel: No dilated loops of large or small bowel is appreciated. There is mild wall thickening of the colon diffusely suggesting a mild colitis. A moderate amount of stool is noted within the colon. Appendix: No evidence of appendicitis. Intraperitoneal space: There is small volume ascites. Vasculature: The aorta is normal in caliber. There is calcified plaque involving the aorta and its branch vessels. Lymph nodes: Unremarkable. No enlarged lymph nodes. Urinary bladder: Unremarkable as visualized. Reproductive: Unremarkable as visualized. Bones/joints: Unremarkable. No acute fracture. Soft tissues: Unremarkable. CT/CT chest abdpel w/*[id number] IMPRESSION: 1. Mild aneurysmal dilatation involving the ascending aorta. 2. Small left pleural effusion. 3. No mediastinal air identified. IMPRESSION: 1. Pancolitis. 2. Fecal stasis. 3. Small volume ascites. COMMENTS: Consistent with the [place] [employer]'s Incidental Findings Committee white paper (J Am Tammy Radiol 2018): Any incidental renal lesion less than 1 cm or classified as too small to characterize, or any incidental cystic renal lesion characterized as simple-appearing, is likely benign. No follow-up imaging is recommended for these lesions per consensus recommendations based on imaging criteria.
--- NOTE | 2024-07-01 06:19 | XRR_ITS ---
PROCEDURE INFORMATION: Exam: XR Chest Exam date and time: 07/01/2024 6:22 AM Age: 44 years old Clinical indication: Device placement; Other: Tlc placement TECHNIQUE: Imaging protocol: Radiologic exam of the chest. Views: 1 view. COMPARISON: CR (CHEST, ) 07/01/2024 3:00 AM FINDINGS: Tubes, catheters and devices: Central venous catheter seen on the right with its tip overlying the SVC/right atrial junction. Lungs: Unremarkable. No consolidation. Pleural spaces: There is minimal blunting of the left costophrenic angle which may be related to a small amount of pleural fluid. No pneumothorax is appreciated. Heart/Mediastinum: Unremarkable. No cardiomegaly. Bones/joints: Unremarkable. XR/XR chest 1V portable [id number] IMPRESSION: 1. Successful placement of central venous catheter. 2. Minimal blunting left costophrenic angle.
[2024-07-01] MEDS: HYDROmorphone 1 mg/mL INJ 1 mL IVP (06:29)
[2024-07-01] MEDS: ondansetron 2 mg/ML SDV 2 mL 4 MG IVP ×3 (06:29→13:15)
[2024-07-01] MEDS: piperacillin-tazobactam 3.375 GM in sodium chloride 0.9% (plus) 50 ML IV ×2 (07:01→14:58)
[2024-07-01] MEDS: iohexol 350 mg/mL 500 mL Btl (per mL) IV (07:19)
--- NOTE | 2024-07-01 07:49 | ECG_ITS ---
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 Measurements Intervals [place] Rate: 98 P: 65 OH: 133 QRS: -5 QRSD: 101 T: 133 QT: 345 QTc: 442 Interpretive Statements SINUS RHYTHM POSSIBLE LEFT ATRIAL ENLARGEMENT [-0.1mV P-WAVE IN V1/V2] POSSIBLE ANTERIOR MYOCARDIAL INFARCTION , PROBABLY OLD [30 ms Q WAVE IN V3/V4, OR R < 0.2 mV IN V4] INFERIOR MYOCARDIAL INFARCTION , PROBABLY OLD [40+ ms Q WAVE AND/OR ST/T ABNORMALITY IN II/aVF] MODERATE T-WAVE ABNORMALITY, CONSIDER LATERAL ISCHEMIA [-0.1+ mV T-WAVE IN I/aVL/V5/V6] Compared to ECG 07/01/2024 03:20:37 T-wave abnormality now present Possible ischemia now present Myocardial infarct finding still present Electronically Signed On 07-02-2024 18:57:04 CDT by Rahul Zambrano M.D. [id number]
--- NOTE | 2024-07-01 08:20 | PC.NURSE ---
PT CENTRAL LINE DRESSING CHANGED.
[2024-07-01] MEDS: HYDROmorphone 1 mg/mL INJ 1 mL 0.5 MG IVP (08:36)
[2024-07-01 08:46] LABS: Troponin 5 2HR 19.75 ng/L (0-10)
[2024-07-01 08:53] LABS: Troponin 5 2HR Delta 13.75001 ABS# (0-10)
--- NOTE | 2024-07-01 11:22 | ECG_ITS ---
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 Measurements Intervals [place] Rate: 119 P: 81 OK: 108 QRS: 2 QRSD: 89 T: 135 QT: 309 QTc: 435 Interpretive Statements SINUS TACHYCARDIA WITH SHORT OK INTERVAL ANTERIOR MYOCARDIAL INFARCTION , PROBABLY OLD [40+ ms Q WAVE AND/OR ST/T ABNORMALITY IN V3/V4] MODERATE T-WAVE ABNORMALITY, CONSIDER LATERAL ISCHEMIA [-0.1+ mV T-WAVE IN I/aVL/V5/V6] Compared to ECG 07/01/2024 07:49:25 Short OK interval now present Sinus rhythm no longer present Myocardial infarct finding still present T-wave abnormality still present Possible ischemia still present Electronically Signed On 07-02-2024 18:48:14 CDT by Rahul Zambrano M.D. [id number] bebe
[2024-07-01 11:24] LABS: Troponin 5 6HR 37.47 ng/L (0-10)
[2024-07-01 11:26] LABS: Troponin 5 6HR Delta 31.47001 ng/L (0-12)
--- NOTE | 2024-07-01 11:35 | USCV_ITS ---
Eleanor Ragland Age: 44 Gender: F : 1980 Exam Date: 07/01/2024 12:32 Ordering Phys: Rahul Zambrano M.D ([email or web address]) Technologist: Abelardo Bergman Exam Location: [facility] Indication: nstemi BP: 155 / 131 HR: 115 Rhythm: Sinus Technical Quality: Adequate MEASUREMENTS (Male / Female) Normal Values 2D ECHO LV Diastolic Diameter PLAX 4.0 cm 4.2 - 5.9 / 3.9 - 5.3 cm IVS Diastolic Thickness 1.1 cm 0.6 - 1.0 / 0.6 - 0.9 cm IVS Systolic Thickness 1.9 cm LVPW Diastolic Thickness 2.1 cm 0.6 - 1.0 / 0.6 - 0.9 cm LVPW Systolic Thickness 2.2 cm LVOT Diameter 2.0 cm LV Ejection Fraction MOD 4C 54.9 % LV Ejection Fraction MOD 2C 64.2 % LV Ejection Fraction 2C AL 68.5 % LA Diameter 3.2 cm RA Systolic Volume 4C AL 20.0 ml RA Systolic Volume 4C MOD 19.7 ml LA Sys Volume AL 35.3 cm cubed LA Sys Volume Index AL 20.7 cm cubed/m squared Aorta at Sinotubular Diameter 1.9 cm M-MODE LA Ao Ratio MM 1.4 AV Cusp Separation MM 1.3 cm DOPPLER AV Peak Velocity 289.0 cm/s LVOT Peak Velocity 151.0 cm/s AV Area Cont Eq vti 1.8 cm squared AV Area Cont Eq pk 1.6 cm squared MV Peak Velocity 288.0 cm/s MV Area PHT 15.6 cm squared Mitral E to A Ratio 0.8 TV Peak Velocity 352.0 cm/s TR Peak Velocity 380.0 cm/s TR Peak Gradient 57.8 mmHg TR Mean Velocity 281.0 cm/s TR Mean Gradient 33.8 mmHg TR Velocity Time Integral 84.2 cm PV Peak Velocity 193.0 cm/s RV Ejection Time 0.3 s FINDINGS Left Ventricle Technically limited quality echocardiogram. LV systolic function is normal with EF 55 to 60%. No regional wall motion abnormalities are seen. Basal septal hypertrophy. Right Ventricle Normal in size and function Right Atrium Normal in size Left Atrium Normal in size Mitral Valve Structurally normal mitral valve. Mild mitral regurgitation. Doppler signal across mitral valve is inadequate. Grossly appears elevated gradients across the mitral valve. Recommend repeating limited echocardiogram when heart rates are improved. Aortic Valve Appears to be thickened. Mild to moderate aortic stenosis with mean gradient of 23 mmHg and aortic valve area 1.6 cm2. Moderate aortic regurgitation. Tricuspid Valve Insufficient TR jet to calculate RVSP Pulmonic Valve Not well visualized Pericardium Normal Aorta Normal in size IVC Not visualized CONCLUSIONS Technically limited quality echocardiogram. LV systolic function is normal with EF 55 to 60%. No regional wall motion abnormalities are seen. Basal septal hypertrophy. Mild mitral regurgitation. Doppler signal across mitral valve is inadequate. Grossly appears elevated gradients across the mitral valve. Recommend repeating limited echocardiogram when heart rates are improved. Mild to moderate aortic stenosis with mean gradient of 23 mmHg and aortic valve area 1.6 cm2. Moderate aortic regurgitation. Rahul Zambrano MD (Electronically Signed) Final Date: 01 July 2024 13:21 S
[2024-07-01] MEDS: sodium chloride 0.9% 1,000 ML 999 ML IV ×4 (11:44→15:08)
--- NOTE | 2024-07-01 12:02 | XRR_ITS ---
PROCEDURE INFORMATION: Exam: XR Chest Exam date and time: 07/01/2024 1:14 PM Age: 44 years old Clinical indication: Other: Hypotension TECHNIQUE: Imaging protocol: Radiologic exam of the chest. Views: 1 view. COMPARISON: CT chest abdpel w/*[id number] 07/01/2024 7:13 AM FINDINGS: Tubes, catheters and devices: Right IJ catheter terminates in the right atrium. Lungs: Unremarkable. No consolidation. Pleural spaces: Unremarkable. No pleural effusion. No pneumothorax. Heart/Mediastinum: Unremarkable. No cardiomegaly. Bones/joints: Unremarkable. XR/XR chest 1V portable [id number] IMPRESSION: No acute findings.
[2024-07-01 12:04] LABS: Basophils % 0.1 %; Hematocrit 35.3 % (36-47); Lymphocytes # 3.4 10^3/uL (0.8-4.8); Mean Corpuscular HGB Conc 33.1 g/dL (30-55); Mean Corpuscular Hemoglobin 28.3 pg (27-33); Mean Corpuscular Volume 85.5 fl (85-98); Mean Platelet Volume 11.8 fL (7.4-10.4); Monocytes # 0.6 10^3/uL (0.2-0.9); Monocytes % 4.5 %; Neutrophils # 9.88 10^3/uL (1.8-7.7); Neutrophils % 70.2 %; Nucleated Red Blood Cells # 0.4 /100WBC; Platelet Count 302 10^3/cmm (157-399); Red Blood Count 4.13 10^6/uL (3.85-5.65); Red Cell Distribution Width 18.5 % (12.1-15.1); White Blood Count 14.08 10^3/uL (3.29-11.43)
[2024-07-01 12:06] LABS: Glucose Point of Care 79 mg/dL (70-110)
--- NOTE | 2024-07-01 12:14 | PM.HP ---
Providers/Chief Complaint Admitting Physician: Bria Perez MD Primary Care Provider: Galo Perez MD Chief Complaint: N/V History of Present Illness Eleanor Ragland is a 44 year old female with past medical history of chronic pancreatitis, multiple hospitalization in the past, last hospitalization 04/16, atrial fibrillation on Eliquis, labile hypertension, GI bleed, epilepsy, diabetes mellitus, aortic regurgitation with idiopathic hypertrophic subaortic stenosis, anxiety, pheochromocytoma, multiple falls presented with complaint of abdominal pain and vomiting since 2 weeks. As per the patient she has been having abdominal pain for a long time. Has been managed at home by PCP with p.o. morphine and oxycodone as needed. She describes abdominal pain as diffuse, 9/10 in intensity, crampy, associated with nausea/vomiting, denies any shortness of breath, chest pain, palpitations or fever. In ER she she was found to have a temperature of 99.1, was hypertensive with a WBC count of 14 and INR 1.8. She received IV fluids, IV Rocephin and Zosyn x 1 dose in the ER. When seen in CSU, she continued to complain about abdominal pain and nausea/dry heaves. She was tachycardic in high 90s with blood pressure of 155/131. Asking for pain medications. But she was found to be hypotensive 30 minutes after arrival on floor. She was found to be cold and clammy, had a bowel movement, nonpalpable pulses, nonpalpable blood pressure and tachypneic but was alert awake oriented x 3. RECORD CLERK SALESPERSON called. She had an EKG done which showed ST depressions in lead I, aVL, V1 and V2. 3 sets of troponins were <6, 19.7 and 37.4. Initial concern was for STEMI hence cardiology consulted, seemed more like coronary spasm since she had a cardiac cath in 04/25 which was normal. Bedside echo showed normal EF as per cardiology. Patient to have complete echo on transfer to ICU. Also started on Levophed, receiving 2 normal saline bolus and blood pressure improved to 127/60. Labs including CMP, CBC, lactic acid, VBG, stool studies for C. difficile and GI panel, UA sent. Will follow-up 03/26--ECHO (03/06/24): Moderate left ventricular hypertrophy with more prominent septal thickening. LVEF 60-65%, mild MR, likely bucuspid aortic valve with mild , moderate AR. elevated LVOT gradient. no changes from 2001 ECHO 04/25 Stress test was normal. 04/25 coronary angiogram: small sized left circumflex with significant stenosis, not amenable to intervention. Moderate mid RCA and PDA stenosis, severe vasospasm during procedure, iFR could not be obtained. Medical management advised. Review of Systems General: Reports: 10 or more systems reviewed and unremarkable except in HPI and below Medications/Allergies Home Medications Medication Instructions Recorded Confirmed Last Taken Type STANDARD WHEELCHAIR #1 ea 05/29/21 06/15/24 Unknown Rx blood-glucose meter (OneTouch #1 ea 12/08/22 06/15/24 Unknown Rx Ultra2 Meter) lancets (AltSchoolTouch UltraSoft #200 ea 12/08/22 06/15/24 Unknown Rx Lancets) lactulose 10 gram/15 mL (15 mL) 10 g (15 mL) PO DAILY PRN 12/22/22 06/15/24 Unknown Rx oral solution constipation #600 mL shower chair #1 ea 04/28/23 06/15/24 Unknown Rx ASO to the right #1 ea 06/13/23 06/15/24 Unknown Rx lancets 33 gauge (OneTouch Delica #100 ea 10/17/23 06/15/24 Unknown Rx Plus Lancet) Pen [place] #1 ea 04/12/24 06/15/24 Unknown Rx blood sugar diagnostic (OneTouch #200 strips 04/12/24 06/15/24 Unknown Rx Ultra Test strips) levetiracetam 500 mg tablet 1,250 mg (2.5 x 500 mg) PO BID 60 04/12/24 06/15/24 04/15/24 Rx days #300 tabs apixaban 5 mg tablet (Eliquis) 5 mg PO BID 04/16/24 06/15/24 04/15/24 History insulin glargine 100 unit/mL (3 2 unit (0.02 mL) SUBCUT BID #15 mL 04/27/24 06/15/24 Unknown Rx mL) subcutaneous pen (Lantus Solostar U-100 Insulin) lorazepam 0.5 mg tablet (Ativan) 0.5 mg PO TID PRN anxiety #20 tabs 04/27/24 06/15/24 Unknown Rx naloxone 4 mg/actuation nasal 4 mg intranasal Q2M PRN opioid 04/27/24 06/15/24 Unknown Rx spray (Narcan) overdose #2 ea tizanidine 4 mg tablet 8 mg (2 x 4 mg) PO TID PRN muscle 05/01/24 06/15/24 Unknown Rx spasticity 30 days #180 tabs brivaracetam 25 mg tablet 25 mg PO DAILY #60 tabs 05/14/24 06/15/24 Unknown Rx (Briviact) atorvastatin 40 mg tablet 40 mg PO BEDTIME #90 tabs 05/15/24 06/15/24 Unknown Rx clopidogrel 75 mg tablet 75 mg PO DAILY #90 tabs 05/15/24 06/15/24 Unknown Rx isosorbide mononitrate 30 mg 30 mg PO DAILY #90 tabs 05/15/24 06/15/24 Unknown Rx tablet,extended release 24 hr spironolactone 25 mg tablet 25 mg PO DAILY #60 tabs 05/31/24 06/15/24 Unknown Rx pantoprazole 40 mg tablet,delayed See Rx Instructions .Route 06/13/24 06/15/24 Unknown Rx release .COMPLEX #60 tabs propranolol 20 mg tablet 20 mg PO TID #90 tabs 06/14/24 06/15/24 Unknown Rx tegwsf-extfzdoe-yzixehz 1 cap PO TIDWMEAL #90 caps 06/15/24 06/15/24 Unknown Rx 40,000-126,000-168,000 unit capsule, delay rel (Zenpep) oxycodone 5 mg tablet 5 mg PO Q4H PRN Moderate Pain 5 06/15/24 06/15/24 Unknown Rx days #20 tabs promethazine 25 mg tablet 25 mg PO TID PRN nausea and 06/18/24 Unknown Rx vomiting #60 tabs morphine 30 mg tablet,extended 30 mg PO Q12H 1 month #60 tabs 06/28/24 Unknown Rx release Allergies Allergy/AdvReac Type Severity Reaction Status Date / Time canagliflozin [From Invokana] Allergy Severe abdominal Verified 06/28/24 07:49 pain enalaprilat Allergy Severe tongue Verified 06/28/24 07:49 swelling aspirin Allergy Unknown Verified 06/28/24 07:49 ketorolac [From Toradol] Allergy Unknown Verified 06/28/24 07:49 nicardipine Allergy ALGY-Difficulty Verified 06/28/24 07:49 Breathing tramadol [From Ultram] Allergy Unknown Verified 06/28/24 07:49 PFSH Acute PFSH: Medical History Atrial fibrillation with RVR Bicuspid aortic valve Aortic regurgitation Labile hypertension Exocrine pancreatic insufficiency GI bleed Adrenal mass Chronic pancreatitis Epilepsy Primary osteoarthritis Diabetes Essential (primary) hypertension 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 Chronic pain of lower extremity, bilateral Congenital hip dysplasia Surgical History History of knee replacement procedure of right knee done twice History of foot surgery closing wedge 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 History of cholecystectomy History of D&C History of bilateral knee replacement Family History Grandmother Cancer Lung disease Stroke Mother Lung disease Other Atrial fibrillation Congestive heart failure (CHF) Social History Smoking and tobacco/nicotine status: never used tobacco/nicotine Alcohol intake: never Substance/Drug Use: never Household members: spouse Housing: House Marital status: Current occupational status: disabled Female Reproductive History: Date of last menstrual period: 05/31/24 Vitals/I&O/Wt Last Vital Signs Temp 98.3 F 07/01/24 10:27 Pulse 105 H 07/01/24 12:05 Resp 18 07/01/24 10:27 BP 155/131 07/01/24 10:27 Pulse Ox 98 07/01/24 10:27 O2 Del Method Room Air 07/01/24 10:27 FiO2 35 07/01/24 12:05 06/30/24 07/01/24 07/01/24 22:59 06:59 14:59 Intake Total 50 / 50 Balance 50 / 50 Weight last 48 hrs Weight 67.132 kg Weight 64.41 kg Physical Exam Narrative: She is alert awake oriented x 3, tachypneic, cold and clammy Chest clear to auscultation bilaterally, no wheezing or rhonchi present Cardiovascular normal heart sounds Abdomen soft diffusely tender nondistended normal bowel sounds Extremities no edema noted bilateral lower extremities, cold and clammy with intermittent blotching Data 07/01/24 11:30 07/01/24 04:36 A&P Assessment and plan (1) Severe sepsis: (2) Acute on chronic pancreatitis: (3) Atrial fibrillation: (4) DM2 (diabetes mellitus, type 2): Qualifiers: Diabetes mellitus superintendent terminal insulin use: with snf use Diabetes mellitus complication status: with other specified complication Qualified Code(s): E11.69 - Type 2 diabetes mellitus with other specified complication; Z79.4 - alf (current) use of insulin (5) Anxiety: (6) NSTEMI (non-ST elevated myocardial infarction): (7) Epilepsy: (8) Chronic pancreatitis: Plan Eleanor Ragland is a 44 year old female with past medical history of chronic pancreatitis, multiple hospitalization in the past, last hospitalization 04/16, atrial fibrillation on Eliquis, labile hypertension, GI bleed, epilepsy, diabetes mellitus, aortic regurgitation with idiopathic hypertrophic subaortic stenosis, anxiety, pheochromocytoma, multiple falls presented with complaint of abdominal pain and vomiting since 2 weeks and was found to be hypotensive with cold and clammy extremities, nonpalpable pulses nonpalpable blood pressure and tachypneic in CSU. RECORD CLERK SALESPERSON called and patient managed with IV fluid boluses, Levophed, EKG consistent with NSTEMI, cardiology consult and BiPAP. Patient stabilized and being transferred to ICU for further care. #Severe sepsis/hypotension-likely secondary to acute pancreatitis. Received 2 L normal saline bolus, will continue with IV fluids normal saline at 100 cc/h. Hemodynamically stable on Levophed at titratable drip, blood pressure currently 127/67. Lactic acid 9. Will follow-up labs. Received 1 dose of Rocephin and Zosyn at 8 AM this morning. Will do broad-spectrum coverage with IV vancomycin and Zosyn. #Cardiology-hemodynamically stable on fluids and Levophed. Also had NSTEMI likely secondary to severe sepsis secondary to acute pancreatitis. Cardiology consulted. NSTEMI likely secondary to coronary spasm and circumflex, had coronary angiogram in 04/25, not amenable to PCI and recommended for medical management. Bedside echo showed normal EF as per cardiology. Will follow-up complete echo study. She is sinus tachycardia due to severe sepsis, not in A-fib. Will continue p.o. Eliquis for now, hold Imdur and spironolactone. Continue Lipitor, Plavix #Pulmonary-she was tachypneic likely secondary to severe sepsis. Respiratory rate and oxygen saturating doing well on BiPAP. Will wean off BiPAP and start on nasal cannula to keep saturation more than 90%. Follow-up chest x-ray #ID-WBC count of 14.0, sepsis likely secondary to acute pancreatitis will do broad-spectrum coverage with IV vancomycin and Zosyn for now #Endocrine-monitor fingersticks 3 times daily and bedtime Will do correction scale insulin since she is n.p.o. #Nephrology-creatinine normal. Continue IV fluids #Neurology-has history of epilepsy, will continue ORGANIZATIONAL EFFECTIVENESS CONSULTANT Keppra and Briviact P.o. Ativan 0.5 mg 3 times daily as needed for anxiety #GI-prophylaxis with IV Pepcid 20 mg twice daily Will do IV Zofran 4 mg every 8 hours IM promethazine 12.5 mg every 6 hours as needed N.p.o. except with sips, chips and meds #DVT prophylaxis-she is already on Eliquis #CODE STATUS discussed with patient, she is full code for now Family, aware of plan of care. Attestations Medical Necessity Statement*: She needs continued hospitalization crossing 2 midnights for management of hypertension/severe sepsis secondary to acute on chronic pancreatitis with ICU care, fluids, pressure support and respiratory support. Time Spent in Patient Care: 90 minutes Coding Level of Care Code Critical Care >/= 30 minutes Diagnoses Severe sepsis A41.9; R65.20 Acute on chronic pancreatitis K85.90; K86.1 Atrial fibrillation I48.91 Type 2 diabetes mellitus with other specified complication, with long-term current use of insulin E11.69; Z79.4 Diabetes mellitus superintendent terminal insulin use: with superintendent terminal use Diabetes mellitus complication status: with other specified complication Anxiety F41.9 NSTEMI (non-ST elevated myocardial infarction) I21.4 Epilepsy G40.909 Chronic pancreatitis K86.1 Time Spent (min) 90
[2024-07-01 12:18] LABS: Alanine Aminotransferase 23 U/L (0-33); Albumin Level 1.9 g/dL (3.5-5.2); Alkaline Phosphatase 140 U/L (35-105); Anion Gap 23.7 (5-19); Aspartate Amino Transferase 50 U/L (0-32); Blood Urea Nitrogen 18 mg/dL (6-20); Calcium 6.6 mg/dL (8.5-10.5); Carbon Dioxide 13 mmol/L (22-29); Chloride 94 mmol/L (98-107); Creatinine Clr Calc Pharmacy 68.1924; Globulin 2.4 g/dL (1.3-4.6); Glucose 80 mg/dL (65-115); Osmolality Calculated 263 mOsm/kg (285-295); Potassium 4.7 mmol/L (3.5-5.1); Sodium 126 mmol/L (136-145); Total Bilirubin 1.3 mg/dL (0.15-1.2); Total Protein 4.3 g/dL (6.6-8.7)
--- NOTE | 2024-07-01 12:19 | PC.NURSE ---
pt arrived from er in to room 104 via stretcher at approx 0940.report received.pt was alert and awake and oriented x 4.denied pain.st on monitor with hr 110-120..initial bp was extremely high via nihon koden.o2 sat mid 90's on room air.pt incontinent large amt brown liquid stool.after pericare completed...pt had a 2nd large liquid stool.admission assessment had been completed by panchito gardner...and this group underwriter assumed pt's care at approx 1150.my initial assessment was concerning as pt had begun to breathe somewhat agonally... guppy breathing ..unable at this point to obtain o2 sat off finger probe and bp would not register on monitor,nor was i able to manually take bp.extremities were cold to touch..le's slightly mottled.dopplerable radial and dp pulses noted, only.st on monitor..hr 120's.pt alert and oriented x 4.denied any pain.lung escobar were diminished.dr marin was called..apprised of pt condition and presence requested.dr marin arrived immediately...made her assessment..and requested that a rapid response be initiated.ivf bolus began,ekg and labs obtained,bipap applied.rt unable to obtain abg's.bp 40's/syst per doppler.levophed initiated by panchito barragan from icu.2nd ekg obtained...dr pedroza (cardiology) present and performed modified echo on pt.pt was transferred to icu 10 via bed.report given to panchito barragan.
[2024-07-01] MEDS: norepinephrine 4 MG/250 ML BAG 7.5 MG IV (12:28)
[2024-07-01 12:33] LABS: Procalcitonin 0.51 ng/mL (0-0.5)
--- NOTE | 2024-07-01 12:40 | PC.NURSE ---
Rapid response from CSU, given 2 liters of NS, placed on Levophed drip due to unobtainable BP, and seen by Dr. Zambrano and Dr. Perez. Patient taken to ICU 10.
[2024-07-01 12:57] LABS: C.Diff PCR (Lab) NEGATIVE (Negative)
[2024-07-01] MEDS: vancomycin 1,000 MG in sodium chloride 0.9% 250 ML 250 MG IV (13:14)
[2024-07-01] MEDS: famotidine 20 mg/2 mL INJ IVP (13:15)
[2024-07-01] MEDS: sodium chloride 0.9% 1,000 ML 100 ML IV (13:20)
[2024-07-01 13:40] LABS: Reflex Lactate Order REFLEX LACTIC ORDERD
[2024-07-01] MEDS: LORazepam 0.5 mg Tablet PO (15:08)
[2024-07-01] MEDS: vasopressin 40 UNIT/100 ML PREMIX IV (16:16)
--- NOTE | 2024-07-01 16:35 | PC.NURSE ---
BP again unobtainable via manual and auto. Dr. Perez notified.
[2024-07-01 17:40] LABS: Glucose Point of Care > 600 mg/dL (70-110)
[2024-07-01 17:40] LABS: Glucose Point of Care 48 mg/dL (70-110)
[2024-07-01 18:07] LABS: pH VBG 7.16 (7.32-7.42)
[2024-07-01 18:08] LABS: Base Excess VBG -17.5 mmol/L (-3.0-3.0); Blood Gas Operator Identificat MONRO; Blood Gas Sample Type VENOUS; HCO3 VBG 9.7 mmol/L (24-28); Oxygen Device NC; PCO2 VBG 27.1 mmHg (41-51); PO2 VBG 39.1 mmHg (25-40)
[2024-07-01 18:25] LABS: Lactic Acid level (Lactate) 10.4 mmol/L (0.5-2.2)
--- NOTE | 2024-07-01 18:26 | PC.NURSE ---
Approximately 1650 Dr. Perez called to see if we could place an Arterial line on patient. Anesthesia business analyst sales operations called for Art line placement, was at home and asked me to call ED doctor. Dr. Felipe in ED called for art line placement.
--- NOTE | 2024-07-01 18:30 | PC.NURSE ---
1700 Dr. Felipe to room to place art line. Patient is AAOx4 talking to staff, HR 110s SPO2 98% on 3 LNC. Patient did begin to complain of chest pain and difficulty breathing. 1705 Patient noted to be in VFib, placed on Zoll and ACLS started. See code sheet.
--- NOTE | 2024-07-01 18:32 | P.CONIM_ITS ---
Providers/Reason For Consult 2 Attending Physician: Bria Perez MD Primary Care Provider: Galo Perez MD History of Present Illness History of Present Illness Eleanor Ragland is a 44 year old female Medications/Allergies Home Medications Medication Instructions Recorded Confirmed Last Taken Type STANDARD WHEELCHAIR #1 ea 05/29/21 06/15/24 Unknown Rx blood-glucose meter (OneTouch #1 ea 12/08/22 06/15/24 Unknown Rx Ultra2 Meter) lancets (OneTouch UltraSoft #200 ea 12/08/22 06/15/24 Unknown Rx Lancets) lactulose 10 gram/15 mL (15 mL) 10 g (15 mL) PO DAILY PRN 12/22/22 06/15/24 Unknown Rx oral solution constipation #600 mL shower chair #1 ea 04/28/23 06/15/24 Unknown Rx ASO to the right #1 ea 06/13/23 06/15/24 Unknown Rx lancets 33 gauge (OneTouch Delica #100 ea 10/17/23 06/15/24 Unknown Rx Plus Lancet) Pen [place] #1 ea 04/12/24 06/15/24 Unknown Rx blood sugar diagnostic (OneTouch #200 strips 04/12/24 06/15/24 Unknown Rx Ultra Test strips) levetiracetam 500 mg tablet 1,250 mg (2.5 x 500 mg) PO BID 60 04/12/24 06/15/24 04/15/24 Rx days #300 tabs apixaban 5 mg tablet (Eliquis) 5 mg PO BID 04/16/24 06/15/24 04/15/24 History insulin glargine 100 unit/mL (3 2 unit (0.02 mL) SUBCUT BID #15 mL 04/27/24 06/15/24 Unknown Rx mL) subcutaneous pen (Lantus Solostar U-100 Insulin) lorazepam 0.5 mg tablet (Ativan) 0.5 mg PO TID PRN anxiety #20 tabs 04/27/24 06/15/24 Unknown Rx naloxone 4 mg/actuation nasal 4 mg intranasal Q2M PRN opioid 04/27/24 06/15/24 Unknown Rx spray (Narcan) overdose #2 ea tizanidine 4 mg tablet 8 mg (2 x 4 mg) PO TID PRN muscle 05/01/24 06/15/24 Unknown Rx spasticity 30 days #180 tabs brivaracetam 25 mg tablet 25 mg PO DAILY #60 tabs 05/14/24 06/15/24 Unknown Rx (Briviact) atorvastatin 40 mg tablet 40 mg PO BEDTIME #90 tabs 05/15/24 06/15/24 Unknown Rx clopidogrel 75 mg tablet 75 mg PO DAILY #90 tabs 05/15/24 06/15/24 Unknown Rx isosorbide mononitrate 30 mg 30 mg PO DAILY #90 tabs 05/15/24 06/15/24 Unknown Rx tablet,extended release 24 hr spironolactone 25 mg tablet 25 mg PO DAILY #60 tabs 05/31/24 06/15/24 Unknown Rx pantoprazole 40 mg tablet,delayed See Rx Instructions .Route 06/13/24 06/15/24 Unknown Rx release .COMPLEX #60 tabs propranolol 20 mg tablet 20 mg PO TID #90 tabs 06/14/24 06/15/24 Unknown Rx vrttlr-iuofovir-gzeqdbo 1 cap PO TIDWMEAL #90 caps 06/15/24 06/15/24 Unknown Rx 40,000-126,000-168,000 unit capsule, delay rel (Zenpep) oxycodone 5 mg tablet 5 mg PO Q4H PRN Moderate Pain 5 06/15/24 06/15/24 Unknown Rx days #20 tabs promethazine 25 mg tablet 25 mg PO TID PRN nausea and 06/18/24 Unknown Rx vomiting #60 tabs morphine 30 mg tablet,extended 30 mg PO Q12H 1 month #60 tabs 06/28/24 Unknown Rx release Allergies Allergy/AdvReac Type Severity Reaction Status Date / Time canagliflozin [From Invokana] Allergy Severe abdominal Verified 06/28/24 07:49 pain enalaprilat Allergy Severe tongue Verified 06/28/24 07:49 swelling aspirin Allergy Unknown Verified 06/28/24 07:49 ketorolac [From Toradol] Allergy Unknown Verified 06/28/24 07:49 nicardipine Allergy ALGY-Difficulty Verified 06/28/24 07:49 Breathing tramadol [From Ultram] Allergy Unknown Verified 06/28/24 07:49 Current Medications Generic Name Dose Route Start Last Admin Trade Name Freq PRN Reason Stop Dose Admin Famotidine 20 mg 07/01/24 12:15 07/01/24 13:15 Famotidine 20 Mg/2 Ml Inj IVP 20 mg Q12H LEANDRA Administration Norepinephrine Bitartrate 4 mg in 250 mls @ 0 mls/hr 07/01/24 12:00 07/01/24 16:49 Levophed IV 14 mcg/min .Q0M LEANDRA 52.5 mls/hr Titration Protocol Per Protocol Sodium Chloride 1,000 mls @ 100 mls/hr 07/01/24 11:15 07/01/24 13:20 Sodium Chloride 0.9% IV 100 mls/hr .Q10H LEANDRA Administration Vancomycin HCl 1,000 mg/ 250 mls @ 250 mls/hr 07/01/24 14:00 07/01/24 14:23 Sodium Chloride IV Infused Q12H LEANDRA Infusion Protocol Piperacillin Sod/Tazobactam 50 mls @ 12.5 mls/hr 07/01/24 15:00 07/01/24 14:58 Sod 3.375 gm/ Sodium Chloride IV 12.5 mls/hr Q8H LEANDRA Administration Protocol Vasopressin 40 unit in 100 mls @ 0 mls/hr 07/01/24 15:45 07/01/24 16:43 Vasostrict IV 0.03 unit/min .Q0M LEANDRA 4.5 mls/hr Titration Protocol Per Protocol Lorazepam 0.5 mg 07/01/24 12:09 07/01/24 15:08 Lorazepam 0.5 Mg Tablet PO 0.5 mg TID PRN Administration anxiety Ondansetron HCl 4 mg 07/01/24 12:15 07/01/24 13:15 Ondansetron 2 Mg/Ml Sdv 2 Ml IVP 4 mg Q8H LEANDRA Administration PFSH Acute 2 PFSH: Medical History Atrial fibrillation with RVR Bicuspid aortic valve Aortic regurgitation Labile hypertension Exocrine pancreatic insufficiency GI bleed Adrenal mass Chronic pancreatitis Epilepsy Primary osteoarthritis Diabetes Essential (primary) hypertension 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 Chronic pain of lower extremity, bilateral Congenital hip dysplasia Surgical History History of knee replacement procedure of right knee done twice History of foot surgery closing wedge 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 History of cholecystectomy History of D&C History of bilateral knee replacement Family History Grandmother Cancer Lung disease Stroke Mother Lung disease Other Atrial fibrillation Congestive heart failure (CHF) Social History Smoking and tobacco/nicotine status: never used tobacco/nicotine Alcohol intake: never Substance/Drug Use: never Household members: spouse Housing: House Marital status: Current occupational status: disabled Female Reproductive History: Date of last menstrual period: 05/31/24 Vitals/I&O/Wt Last Vital Signs Temp 99.3 F 07/01/24 12:30 Pulse 108 H 07/01/24 16:30 Resp 19 H 07/01/24 16:30 BP 119/96 07/01/24 13:30 Pulse Ox 95 07/01/24 16:30 O2 Del Method Nasal Cannula 07/01/24 16:30 O2 Flow Rate 3 07/01/24 16:30 FiO2 35 07/01/24 16:00 07/01/24 07/01/24 07/01/24 06:59 14:59 22:59 Intake Total 3105.362 / 3105.362 67.225 / 3172.587 Balance 3105.362 / 3105.362 67.225 / 3172.587 Weight last 48 hrs Weight 148 lb Weight 142 lb Physical Exam 2 Urinary Catheter Management: Preston: Cath Placed During This Visit: yes Urinary Catheter Date of Insertion: 07/01/24 Urinary Catheter Time of Insertion: 12:25 Data 07/01/24 11:30 07/01/24 11:30 Micro: Microbiology 07/01/24 11:30 Stool Lactoferrin - Final Stool Occult Blood (FIT) - Final Coding Level of Care Code Acute Code for Chg Fwd
--- NOTE | 2024-07-01 18:41 | PC.NURSE ---
Glucose check during code was 48. This nurse performed check during code, sample was poor due to poor peripheral circulation. 1 amp D50 given due to low reading. Glucose checked again and read HI after D50 was given.
--- NOTE | 2024-07-01 18:47 | PC.NURSE ---
Addendum entered by Makenna Bush RN 07/02/24 09:53: Intubated by Dr Felipe @1710. 8.0 ETT. Original Note: CODE BLUE; 1706 pt found to be in cardiac arrest. CPR started/code blue called overhead 1707 shock 1708 pulse check/CPR 1709 Epi IVP 1710 Pulse check/giovanni/CPR 1712 Pulse check/shock/CPR/Epi IVP (vfib) 1714 150 Amio IVP, 1 Amp Bicarb IVP 1715 Pulse check/Shock/CPR (vfib) 1716 Epi IVP 1717 Pulse Check/Shock/CPR (vfib) 1719 Pulse Check/Shock/CPR/ Epi IVP 1720 Calcium Gluconate IVP, Dextrose IVP (BG 48), 300 Amio IVP 1721 Pulse Check/Shock/CPR 1722 Epi IVP 1723 Pulse Check/Shock/CPR 1725 Pulse Check/Shock/CPR/Epi IVP 1726 Amp Bicarb IVP 1727 Pulse Check/Shock/CPR 1728 Epi IVP 1729 Pulse Check/CPR (Asy.) 1731 Pulse Check/CPR/Epi IVP (PEA) 1733 Pulse Check/CPR (PEA) 1734 Epi IVP 1736 Pulse Check/CPR (PEA) 1738 Pulse Check/CPR/EPI IVP (PEA) 1740 Pulse Check/CPR/(PEA) 1741 Epi IVP 1743 Pulse Check/PEA 1743 TOD called MTS Notified of patient passing. Current Hold.
--- NOTE | 2024-07-01 18:59 | PC.NURSE ---
MERRICK 1746, outside of room in adjoining room. Nurse talking to and explaining patient to and details and making him aware that she has a tube (ETT) in her mouth, etc. Patient's request that nursing staff remove lines and tube before he goes to see the patient. Lines removed per husbands request.
--- NOTE | 2024-07-01 19:09 | PC.NURSE ---
MTS was called by AMPARO Cortes. Patient to go to [facility] [place]. Family still in room.
--- NOTE | 2024-07-01 19:23 | P.DES_ITS ---
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 Qualified Code(s): E11.69 - Type 2 diabetes mellitus with other specified complication; Z79.4 - halfway (current) use of insulin (5) Anxiety: (6) NSTEMI (non-ST elevated myocardial infarction): (7) Epilepsy: (8) Chronic pancreatitis: Reason for Visit Reason for Visit N/V Brief History: Eleanor Ragland is a 44 year old female with past medical history of chronic pancreatitis, multiple hospitalization in the past, last hospitalization 04/16, atrial fibrillation on Eliquis, labile hypertension, GI bleed, epilepsy, diabetes mellitus, aortic regurgitation with idiopathic hypertrophic subaortic stenosis, anxiety, pheochromocytoma, multiple falls presented with complaint of abdominal pain and vomiting since 2 weeks. As per the patient she has been having abdominal pain for a long time. Has been managed at home by PCP with p.o. morphine and oxycodone as needed. She describes abdominal pain as diffuse, 9/10 in intensity, crampy, associated with nausea/vomiting, denies any shortness of breath, chest pain, palpitations or fever. In ER she she was found to have a temperature of 99.1, was hypertensive with a WBC count of 14 and INR 1.8. She received IV fluids, IV Rocephin and Zosyn x 1 dose in the ER. When seen in [facility], she continued to complain about abdominal pain and nausea/dry heaves. She was tachycardic in high 90s with blood pressure of 155/131. Asking for pain medications. But she was found to be hypotensive 30 minutes after arrival on floor. She was found to be cold and clammy, had a bowel movement, nonpalpable pulses, nonpalpable blood pressure and tachypneic but was alert awake oriented x 3. LITHOGRAPHIC CAMERA OPERATOR called. She had an EKG done which showed ST depressions in lead I, aVL, V1 and V2. 3 sets of troponins were <6, 19.7 and 37.4. Initial concern was for STEMI hence cardiology consulted, seemed more like coronary spasm since she had a cardiac cath in 04/25 which was normal. Bedside echo showed normal EF as per cardiology. Patient to have complete echo on transfer to ICU. Also started on Levophed, receiving 2 normal saline bolus and blood pressure improved to 127/60. Labs including CMP, CBC, lactic acid, VBG, stool studies for C. difficile and GI panel, UA sent. Will follow-up Summary Date and Time of Date of : 07/01/24 Time of : 17:43 Summary Summary: She was still found to be hypotensive on transfer to ICU. Received total of 3 L of normal saline fluid boluses. Was started on Levophed drip at 10 mics per minute, but still hypotensive hence added vasopressin drip. She was also complaining of some midsternal chest pain, likely secondary to coronary vasospasm but she was alert awake and oriented x 3. Her peripheral pulses were still nonpalpable and she still had nonpalpable blood pressure hence plan was to get arterial line. ER physician was at bedside when she suddenly became nonresponsive and and went into V-fib. CODE BLUE activated. She was intubated at bedside by the ER physician. She had CPR, shocked x 9. Received 11 epi nephron, 2 amiodarone's to bicarbs, 1 D50. But she was in ventricular fibrillation all along and went into PEA at 1733 and asystole. TOD was noted to be 1743. Additional Data Confirmation of as documented by pronouncing clinician: no pulse, no respirations and no heart sounds Family: contacted Additional persons at bedside: nursing staff and bank advisor Attending/PCP notified?: I am attending Was code activated?: Yes Autopsy requested?: No Advance directives?: No Hospice patient?: No Discharge Plan Discharge Patient Disposition: Condition: Stable Prescriptions: No Action (DME) STANDARD WHEELCHAIR See Rx Instructions .Route .MEDSUPPLY Qty: 1 0RF Rx Instructions: As directed (DME) blood-glucose meter [OneTouch Ultra2 Meter] Misc See Rx Instructions .Route Qty: 1 0RF Rx Instructions: As directed (DME) lancets [OneTouch UltraSoft Lancets] [facility] See Rx Instructions .Route Qty: 200 2RF Rx Instructions: As directed lactulose 10 gram/15 mL (15 mL) solution 10 g PO DAILY PRN (Reason: constipation) Qty: 600 0RF (DME) ASO to the right See Rx Instructions .Route .MEDSUPPLY Qty: 1 0RF Rx Instructions: As directed levetiracetam 500 mg tablet 1,250 mg PO BID 60 Days Qty: 300 1RF clopidogrel 75 mg tablet 75 mg PO DAILY Qty: 90 3RF isosorbide mononitrate 30 mg tablet extended release 24 hr 30 mg PO DAILY Qty: 90 3RF atorvastatin 40 mg tablet 40 mg PO BEDTIME Qty: 90 3RF Zenpep 40,000-126,000- 168,000 unit capsule,delayed release(DR/EC) 1 cap PO TIDWMEAL Qty: 90 1RF Rx Instructions: administer with meals and/or snacks oxycodone 5 mg tablet 5 mg PO Q4H PRN (Reason: Moderate Pain) 5 Days Qty: 20 0RF (DME) shower chair See Rx Instructions .Route .MEDSUPPLY Qty: 1 0RF Rx Instructions: As directed (DME) lancets [OneTouch Delica Plus Lancet] 33 gauge [facility] See Rx Instructions .ROUTE .COMPLEX Qty: 100 3RF Dose Instruction: test fasting EVERY MORNING and hours AFTER MEALS Rx Instructions: test fasting EVERY MORNING and hours AFTER MEALS (DME) Pen [place] See Rx Instructions .Route .MEDSUPPLY Qty: 1 0RF Rx Instructions: As directed (DME) OneTouch Ultra Test Strip See Rx Instructions .ROUTE .COMPLEX Qty: 200 0RF Dose Instruction: TO test FOUR TIMES DAILY Rx Instructions: TO test FOUR TIMES DAILY tizanidine 4 mg tablet 8 mg PO TID PRN (Reason: muscle spasticity) 30 Days Qty: 180 3RF Briviact 25 mg tablet 25 mg PO DAILY Qty: 60 3RF spironolactone 25 mg tablet 25 mg PO DAILY Qty: 60 0RF pantoprazole 40 mg tablet,delayed release (DR/EC) See Rx Instructions .ROUTE .COMPLEX Qty: 60 0RF Dose Instruction: TAKE ONE TABLET BY MOUTH TWICE DAILY at 8am & 8pm Rx Instructions: TAKE ONE TABLET BY MOUTH TWICE DAILY at 8am & 8pm propranolol 20 mg tablet 20 mg PO TID Qty: 90 0RF promethazine 25 mg tablet 25 mg PO TID PRN (Reason: nausea and vomiting) Qty: 60 0RF morphine 30 mg tablet extended release 30 mg PO Q12H 30 Days Qty: 60 0RF Rx Instructions: at 0800/2000 Eliquis 5 mg tablet 5 mg PO BID Lantus Solostar U-100 Insulin 100 unit/mL (3 mL) insulin pen 2 unit SUBCUT BID Qty: 15 0RF Narcan 4 mg/actuation spray,non-aerosol 4 mg intranasal Q2M PRN (Reason: opioid overdose) Qty: 2 0RF Rx Instructions: spray 1 dose into ONE nostril; alternate nostrils w each dose until help arrives Ativan 0.5 mg tablet 0.5 mg PO TID PRN (Reason: anxiety) Qty: 20 0RF Patient Instructions: Opioid Safety Probable Cause of Probable cause of : Cardiac arrest DS Attestations Time Spent in /Discharge Care*: critical care time Quality - AMI: AMI present?: No Quality - Stroke: CVA present?: No Symptom Onset Unknown: No Quality - VTE: VTE present?: No Deep Vein Thrombosis/Pulmonary Embolism Present on Admission: No Coding Level of Care Code Critical Care >/= 30 minutes Diagnoses Severe sepsis A41.9; R65.20 Acute on chronic pancreatitis K85.90; K86.1 Atrial fibrillation I48.91 Type 2 diabetes mellitus with other specified complication, with long-term current use of insulin E11.69; Z79.4 Diabetes mellitus complication status: with other specified complication 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
--- NOTE | 2024-07-01 19:28 | PM.CCN ---
Critical Care Event Note The high probability of a clinically significant, sudden or life threatening deterioration of the patient's [] system(s) required my full and direct attention, intervention and personal management. The critical care time is as shown. This time is in addition to time spent performing any reported procedures but includes the following: [x] Data and vital sign review and interpretation [x] Patient assessment, examination and intervention [x] Documentation [x] Medication orders and management Critical Care Time Code activated: Yes Critical Care Time (min): 5 Additional information about critical care time: I was called to the ICU to place an arterial line as this patient was decompensating and blood pressure could not be determined without invasive management. On my arrival the patient was awake but altered. She was quite pale. I was able to palpate a very faint radial pulse. I had not yet started the procedure to place the arterial line when she went into V-fib arrest. Nursing was at the bedside. Dr. Huff and Dr. Perez also arrived shortly thereafter. ACLS protocol was followed and is documented in the ICU nursing notes. I did bag mask ventilation with an oral airway in place until such time as an endotracheal tube was available. I then placed that with the glide scope with no complications. I only briefly provided actual critical care at the bedside. The majority of my time at the bedside was involved in the procedure of placing endotracheal tube and ventilating the patient during CPR. Procedures Intubation Sedative: none Paralytic: other (None) Laryngoscope: fiber optic video scope ET tube size: 8 Tube secured depth (cm): 21 Tube secured location: lips Tube placement confirmation: visualized tube passing through cords, equal breath sounds bilaterally and color change noted Intubation complications: none Intubation Sedative: none Paralytic: other (None) Laryngoscope: fiber optic video scope ET tube size: 8 Tube secured depth (cm): 21 Tube secured location: lips Tube placement confirmation: visualized tube passing through cords, equal breath sounds bilaterally and color change noted Intubation complications: none Coding Level of Care Code Critical Care Other Coding Information Procedural care (documented in this note)
--- NOTE | 2024-07-01 22:14 | PC.NURSE ---
Manoj Time: 2213 MTS notified
--- NOTE | 2024-07-01 22:23 | PC.NURSE ---
Post mortom care done, transferred to [facility] per transfer and pumphouse operator. Possible candidate for tissue donation, paperwork given to transfer and pumphouse operator. home not called at present time due to body not released per MTS.
--- NOTE | 2024-07-01 23:48 | PC.NURSE ---
MTS - MTS called this RN, family refused donation. [facility] notified.
--- NOTE | 2024-07-02 00:30 | PC.NURSE ---
[facility]
== END 2024-07-01 19:00 | disposition expired | DRG 871 ==
LOC: ER 07:06 → CSU 09:09 → ICU 11:58
PROVIDERS: Emergency Medicine; Admitting Provider Internal Medicine; Emergency Provider Emergency Medicine; PCP Family Medicine; Visit Provider Internal Medicine
DX: A41.9 Sepsis, unspecified organism (principal); K85.80 Other acute pancreatitis without necrosis or infection; K86.1 Other chronic pancreatitis; I20.1 Angina pectoris with documented spasm; R65.20 Severe sepsis without septic shock; K86.81 Exocrine pancreatic insufficiency; I48.91 Unspecified atrial fibrillation; I10 Essential (primary) hypertension; G40.909 Epilepsy, unspecified, not intractable, without status epilepticus; E11.69 Type 2 diabetes mellitus with other specified complication; I35.0 Nonrheumatic aortic (valve) stenosis; F41.9 Anxiety disorder, unspecified; E27.9 Disorder of adrenal gland, unspecified; Z96.653 Presence of artificial knee joint, bilateral; I49.01 Ventricular fibrillation; I46.9 Cardiac arrest, cause unspecified; Z79.4 Long term (current) use of insulin; Z79.01 Long term (current) use of anticoagulants; Z79.02 Long term (current) use of antithrombotics/antiplatelets; Q65.89 Other specified congenital deformities of hip
CPT/HCPCS: 36415; 36416; 36592; 51702; 71045; 71260; 74177; 80053; 82274; 82803; 82962; 83605; 83630; 83690; 84145; 84484; 84703; 85025; 85610; 86140; 87493; 93005; 93306; 94660; 94664; 96372; J1170; J2405; J2543; J2598; J3370; J3490; J7030; J7050